=== PATIENT | female | born 1995 | race Caucasian/White ===

== ENCOUNTER → 2018-04-29 17:58 | Outpatient (CLI) | payer OTHER, SELFPAY | PROVIDERS: Visit Provider Nurse Practitioner Family | DX: J02.9 Acute pharyngitis, unspecified (principal) | CPT/HCPCS: 87081 ==

== ENCOUNTER 2020-06-04 10:45 | Outpatient (RCR) | payer OTHER, SELFPAY ==
[2019-05-04 08:16] VITALS: BMI 25.7
== END 2020-06-06 23:59 ==
LOC: EMPH 10:45
PROVIDERS: Visit Provider Family Medicine Geriatric Medicine
DX: Z11.59 Encounter for screening for other viral diseases (principal)
CPT/HCPCS: 87635; U0003

== ENCOUNTER 2020-07-02 10:34 | Outpatient (RCR) | payer OTHER, SELFPAY ==
[2019-05-04 08:16] VITALS: BMI 25.7
== END 2020-07-07 23:59 ==
LOC: EMPH 10:34
PROVIDERS: Visit Provider Family Medicine Geriatric Medicine
DX: Z03.818 Encounter for observation for suspected exposure to other biological agents ruled out (principal)
CPT/HCPCS: 87426

== ENCOUNTER 2020-08-01 13:29 | Outpatient (RCR) | payer OTHER, SELFPAY ==
[2019-05-04 08:16] VITALS: BMI 25.7
== END 2020-08-06 23:59 ==
LOC: EMPH 13:29
PROVIDERS: Visit Provider Family Medicine Geriatric Medicine
DX: Z03.818 Encounter for observation for suspected exposure to other biological agents ruled out (principal)
CPT/HCPCS: 87426

== ENCOUNTER 2020-08-09 10:23 | Outpatient (RCR) | payer OTHER, SELFPAY ==
[2019-05-04 08:16] VITALS: BMI 25.7
== END 2020-09-06 23:59 ==
LOC: EMPH 10:23
PROVIDERS: Visit Provider Family Medicine Geriatric Medicine
DX: Z03.818 Encounter for observation for suspected exposure to other biological agents ruled out (principal)
CPT/HCPCS: 87426

== ENCOUNTER 2021-02-27 11:35 | Outpatient (RCR) | payer OTHER, SELFPAY ==
[2019-05-04 08:16] VITALS: BMI 25.7
== END 2021-03-06 23:59 ==
LOC: EMPH 11:35
PROVIDERS: Visit Provider Family Medicine Geriatric Medicine
DX: Z03.818 Encounter for observation for suspected exposure to other biological agents ruled out (principal)
CPT/HCPCS: 87426

== ENCOUNTER 2021-08-29 08:25 | Outpatient (RCR) | payer OTHER, SELFPAY ==
[2019-05-04 08:16] VITALS: BMI 25.7
== END 2021-09-06 23:59 ==
LOC: EMPH 08:25
PROVIDERS: Visit Provider Family Medicine Geriatric Medicine
DX: Z03.818 Encounter for observation for suspected exposure to other biological agents ruled out (principal)

== ENCOUNTER 2021-10-21 15:37 | Outpatient (RCR) | payer OTHER, SELFPAY ==
[2021-09-07 00:03] VITALS: BMI 25.7
== END 2021-11-04 23:59 | disposition home or self-care (01) ==
LOC: EMPH 15:37
PROVIDERS: Visit Provider Family Medicine Geriatric Medicine
DX: Z03.818 Encounter for observation for suspected exposure to other biological agents ruled out (principal)
CPT/HCPCS: 87426

== ENCOUNTER → 2022-03-04 | Outpatient (CLI) | payer OTHER, SELFPAY ==
--- NOTE | 2022-03-04 16:06 | RAD_ITS ---
EXAM: XR LUMBOSACRAL SPINE, 4 OR 5 VIEWS CLINICAL INDICATION: Back pain TECHNIQUE: Frontal, lateral and bilateral oblique views of the lumbar spine. This report was created using [employer] report generation technology. COMPARISON: None. FINDINGS: VERTEBRAE: Unremarkable. Preserved vertebral body height. No fracture. No spondylolisthesis. Preservation of the normal lumbar lordosis. No significant facet arthropathy. DISC SPACES: No acute findings. Disc spaces are maintained. GASTROINTESTINAL TRACT: Normal bowel gas pattern. RAD/L/S Spine Min 4 Views IMPRESSION: No evidence of lumbar spinal fracture or spondylolisthesis. Electronically Signed: Phill Michele MD at 9:27 EDT ,
== END | disposition home or self-care (01) ==
LOC: RAD 16:00
PROVIDERS: Referring Provider Chiropractor; Visit Provider Chiropractor
DX: M54.9 Dorsalgia, unspecified (principal); M99.03 Segmental and somatic dysfunction of lumbar region; M99.05 Segmental and somatic dysfunction of pelvic region
CPT/HCPCS: 72110

== ENCOUNTER 2022-03-24 04:51 | Emergency (ER) | payer OTHER, SELFPAY ==
[2022-03-24 04:52] VITALS: BP 123/87; PULSE 91; RESP 16; TEMP 37.3; O2SAT 99; BMI 25.8
--- NOTE | 2022-03-24 05:10 | EDS_ITS ---
HPI History of Present Illness Chief Complaint: Abd Pain Narrative Narrative: Patient is a 26-year-old female with no significant past medical or surgical history. She states she went to bed normally last night and awoke around 2:30 in the morning with discomfort in her right upper abdomen. She states it will wax and wane from being sharp to a dull ache. She denies any radiation of the pain. She denies any recent trauma. She states that the pain is making her nauseous but she has had no bouts of vomiting or loose stool/diarrhea. She denies any concern for or STDs and she denies any known sick contact. She states that she cannot get comfortable secondary to the persistent waxing and waning of the pain she presents for evaluation [facility] Medical History (Updated 03/24/22 @ 06:[address] Myron Leon, ) Frequent headaches Home Medications norethindrone acetate 1 mg-ethinyl estradiol 20 mcg tablet (Junel) 1 tab PO QDAY 08/17/17 [History Last Taken Unknown] cephalexin 500 mg capsule 500 mg PO BID 5 days #10 caps 03/24/22 [Rx Last Taken Unknown] ondansetron 4 mg disintegrating tablet 4 mg PO TID PRN PRN nausea and vomiting #21 tabs 03/24/22 [Rx Last Taken Unknown] Allergy/AdvReac Type Severity Reaction Status Date / Time No Known Allergies Allergy Verified 03/05/22 11:25 Social History Smoking Status: Never smoker alcohol intake: current alcohol intake frequency: 0-2 drinks per day Alcohol type: beer and wine substance use type: does not use what type of physical activity do you participate in: walking and running frequency: 1-2 times per week duration: 15-30 minutes/day ROS ROS ED Constitutional Constitutional ED: Denies chills or fever(s) ENT ENT ED: Denies sore throat Cardiovascular Cardiovascular: Denies chest pain Respiratory/Chest Respiratory/Chest: Denies cough or dyspnea Gastrointestinal Gastrointestinal: Reports abdominal pain and nausea; Denies diarrhea or vomiting Genitourinary Genitourinary ED: Denies dysuria or hematuria Musculoskeletal Musculoskeletal: Denies back pain or myalgias Integumentary Denies rash Neurologic Neurologic: Denies headache(s) Hematologic/Lymphatic Hematologic/Lymphatic: Denies easy bleeding or easy bruising EXAM Physical Exam Const Vital Signs: 03/24/22 04:52 03/24/22 06:34 Temperature 99.1 F Temperature Source Temporal Pulse Rate 91 83 Respiratory Rate 16 15 Blood Pressure 123/87 H 114/79 Blood Pressure Mean 99 90 Pulse Ox 99 99 Oxygen Delivery Method Room Air Room Air Positive well nourished and well developed General Appearance ED: well developed HEENT Reports moist mucous membranes Eyes PERRL and EOMs intact bilaterally Neck supple Resp normal respiratory effort and clear to auscultation bilaterally Cardio regular rate and regular rhythm Rate: other Other Details: Radial pulses are plus 2 out of 4 bilaterally they are equal and symmetric GI non-distended GI Narrative: Abdomen is soft and nondistended with hyperactive bowel sounds. There is pain with palpation in the right upper quadrant without voluntary guarding or rigidity. Negative Johns sign. Negative heel strike and psoas sign. Palpation: soft Back/Spine no CVA tenderness Extremity normal to inspection Neuro oriented x3 and CN's II-XII intact bilaterally Sensorium / Orientation: alert Psych mental status grossly normal Skin no rashes or lesions noted MDM MDM MDM Narrative Medical decision making narrative: Patient presented to the ER with normal vitals. Her pain was mainly in the right upper quadrant but there is no guarding or positive Johns sign. Still there was concern this could be secondary to gallbladder dysfunction so basic work-up was obtained. Her labs revealed no clinically significant finding. Her urine does show +2 bacteria without white blood cells or contamination. The patient denies any urinary symptoms and denies any vaginal discharge or concern for STD. In theory her abdominal pain could be secondary to a start of pyelonephritis and therefore the urine will be sent for culture and she will be given a gram of Rocephin. On reevaluation her pain is much better but it is still slightly present and therefore we will get an ultrasound to ensure that there is no signs of acute cholecystitis or gallbladder dysfunction. However based on her vitals and laboratory studies at this time I do not think infectious process will be present and as she has had symptom improvement I feel it would be safe for the patient to be discharged and can follow-up on an outpatient basis. With the +2 bacteria in the urine I will put her on a round of Keflex as well. Lab Data Attestation: I reviewed the patient's lab results. Labs: Laboratory Results - last 24 hr 03/24/22 03/24/22 03/24/22 04:58 04:58 05:28 WBC 7.8 RBC 4.42 Hgb 13.3 Hct 38.9 MCV 88.0 MCH 30.1 MCHC 34.2 RDW Std Deviation 40.8 RDW Coeff of Pedro Luis 12.5 Plt Count 263 MPV 10.6 Immature Gran % (Auto) 0.300 Neut % (Auto) 59.9 Lymph % (Auto) 27.3 [place] % (Auto) 8.5 Eos % (Auto) 3.2 Baso % (Auto) 0.8 Absolute Neuts (auto) 4.7 Absolute Lymphs (auto) 2.12 Nucleated RBC % 0 Sodium 138 Potassium 3.8 Chloride 105 Carbon Dioxide 27.0 Anion Gap 6 BUN 12 Creatinine 0.68 Estim Creat Clear Calc 111.82 Est GFR (MDRD) Af Amer 133 Est GFR (MDRD) Non-Af 110 BUN/Creatinine Ratio 17.6 Glucose 108 H Calcium 9.2 Total Bilirubin 0.60 Direct Bilirubin 0.15 AST 14 L ALT 23 Alkaline Phosphatase 63 Total Protein 7.3 Albumin 3.6 Globulin 3.7 Lipase 128 Urine Color Yellow Urine Clarity Clear Urine pH 6.0 Ur Specific [place] 1.015 Urine Protein Negative Urine Glucose (UA) Normal Urine Ketones Negative Urine Occult Blood Negative Urine Nitrite Negative Urine Bilirubin Negative Urine Urobilinogen Normal Ur Leukocyte Esterase Negative Urine RBC 0 SEEN Urine WBC 0 SEEN Ur Squamous Epith Cells 0 SEEN Urine Bacteria 2+ Urine Mucus 0 SEEN Urine Test Negative Discharge Plan Triage Chief Complaint: Abd Pain ED Provider: Myron Leon Dx/Rx/DC Orders Clinical Impression: Right upper quadrant abdominal pain, Asymptomatic bacteriuria Instructions: Abdominal Pain Prescriptions: New cephalexin 500 mg capsule 500 mg PO BID 5 Days Qty: 10 0RF ondansetron 4 mg tablet,disintegrating 4 mg PO TID PRN PRN (Reason: nausea and vomiting) Qty: 21 0RF No Action norethindrone ac-eth estradiol [09/26 ()] 1-20 mg-mcg tablet 1 tab PO QDAY Primary Care Provider: Orly Velarde Referrals: Orly Velarde, [Primary Care Provider] - Activity Restrictions/Additional Instructions: Please take the medication as directed secondary to the bacteria found in your urine sample today. If you are having any further concerns or worsening symptoms despite outpatient therapy please return to the ER for repeat evaluation. Disposition Disposition: Home, Self Care
[2022-03-24 05:22] LABS: Absolute Lymphocyte Count 2.12 X10^3/uL (0.83-4.51); Absolute Neutrophil Count 4.7 X10^3/uL (2.0-7.7); Basophil# 0.06 X10^3/uL; Basophil% 0.8 % (0-1); Eosinophil# 0.25 X10^3/uL; Eosinophils% 3.2 % (0-5); Hematocrit 38.9 % (37-47); Hemoglobin 13.3 g/dL (12.0-15.0); Lymphocyte # 2.12 X10^3/ul (0.83-4.51); Lymphocyte % 27.3 % (19-41); Mean Corp Hgb Conc 34.2 g/dL (32-36); Mean Corpuscular Hgb 30.1 pg (27.0-32.0); Mean Platelet Vol. 10.6 fl (6.2-12.0); Monocyte# 0.66 X10^3/uL; Monocyte% 8.5 % (0-10); NRBC Flagged by Analyzer 0 % (0-5); Neutrophil # 4.66 X10^3/uL (2.7-7.7); Neutrophil % 59.9 % (47-70); Platelet Count 263 K/mm3 (150-450); RBC Distribution Width CV 12.5 % (11.6-14.6); RBC Distribution Width SD 40.8 fl (35.1-43.9); Red Blood Count 4.42 M/mm3 (4.2-5.4); White Blood Count 7.8 K/mm3 (4.4-11.0)
[2022-03-24] MEDS: 0.9% Normal Saline 1,000 ML 999 ML IV (05:37)
[2022-03-24] MEDS: Ketorolac 30 MG/ML Syringe IV (05:37)
[2022-03-24] MEDS: Ondansetron 4 MG/2 ML Vial IV (05:37)
[2022-03-24 05:40] LABS: Mucous, Urine 0 SEEN /hpf (<or=2+); Red Blood Cells-Urine 0 SEEN /hpf (0-5); Squamous Epithelial Cells - UA 0 SEEN /hpf (5-10); White Blood Cells 0 SEEN /hpf (0-5)
[2022-03-24 05:43] LABS: AST(SGOT) 14 U/L (15-37); Alanine Aminotransfer ALT/SGPT 23 U/L (13-56); Albumin, Serum 3.6 g/dL (3.2-5.0); Alkaline Phosphatase 63 U/L (45-117); Anion Gap 6 (5-15); BUN 12 mg/dL (7-18); BUN/Creat Ratio 17.6 RATIO (10-20); Bilirubin, Direct 0.15 mg/dL (0.00-0.30); Calcium,Total 9.2 mg/dL (8.5-10.1); Chloride 105 mmol/L (98-107); Creatinine, Serum 0.68 mg/dL (0.55-1.02); EST Glomerular Filtration Rate 110 mL/min (>60); Est Glom Filt Rate - Afr Amer 133 mL/min (>60); Estimated Creatinine Clearance 111.82 ml/min; Globulin 3.7 g/dL (2.2-4.2); Glucose 108 mg/dL (74-106); Lipase 128 U/L (73-393); Potassium 3.8 mmol/L (3.5-5.1); Protein, Total 7.3 g/dL (6.4-8.2); Sodium Level 138 mmol/L (136-145)
[2022-03-24 05:57] LABS: Color, Urine Yellow (Yellow); Glucose, Dipstick Normal (Normal); Ketone-Dipstick Negative (Negative); Leukocyte Esterase-Dipstick Negative /ul (Negative); Nitrite-Dipstick Negative (Negative); Occult Blood-Urine Negative /ul (Negative); Protein-Dipstick Negative (Negative); Specific Gravity, Urine 1.015 (1.002-1.030); Urine Bilirubin Dipstick Negative (Negative); Urine Clarity Clear (Clear); Urine Urobilinogen Normal (Normal)
[2022-03-24 05:58] LABS: Bacteria 2+ /hpf (None Seen); Internal QC Validated? YES +Cl - CLEAR BKGD; Pregnancy, Urine Negative Negative
--- NOTE | 2022-03-24 06:18 | US_ITS ---
EXAM: US ABDOMEN LIMITED, RIGHT UPPER QUADRANT CLINICAL INDICATION: RUQ pain TECHNIQUE: Real-time ultrasound of the right upper quadrant with image documentation. This report was created using [employer] report generation technology. COMPARISON: None. FINDINGS: LIVER: Unremarkable. There is normal echotexture. No focal hepatic lesion. No intrahepatic biliary ductal dilation. GALLBLADDER: Multiple small stones are present within the gallbladder. No gallbladder wall thickening is demonstrated. Small amount of pericholecystic fluid. Negative sonographic Johns''s sign. COMMON BILE DUCT: Unremarkable as visualized. The proximal common bile duct is within normal limits for the patient''s age. PANCREAS: Unremarkable as visualized. No focal abnormality is demonstrated in the pancreas. No pancreatic ductal dilatation. RIGHT KIDNEY: Unremarkable. There is no hydronephrosis. No shadowing calculus. No focal lesion or perinephric collection is demonstrated. US/Gallbladder IMPRESSION: Cholelithiasis. Minimal pericholecystic fluid raises the possibility of acute cholecystitis. Electronically Signed: Phill Michele MD at 7:47 EDT ,
[2022-03-24] MEDS: Ceftriaxone 1 GM/50 ML BAG IV (06:27)
[2022-03-24 06:34] VITALS: BP 114/79; PULSE 83; RESP 15; O2SAT 99
[2022-03-24 08:33] VITALS: RESP 16
== END 2022-03-24 08:34 | disposition home or self-care (01) ==
PROVIDERS: Emergency Medicine; Emergency Provider Emergency Medicine; Visit Provider Emergency Medicine
DX: R10.11 Right upper quadrant pain (principal); R82.71 Bacteriuria
CPT/HCPCS: 76705; 80048; 80076; 81001; 81025; 83690; 85025; 87086; 87088; 99282; J7030; A4216; J2405

== ENCOUNTER 2022-04-02 12:29 | Day surgery (SDC) | payer OTHER, SELFPAY ==
--- NOTE | 2022-04-02 12:40 | EKG12_ITS ---
Test Reason : PRE OP Blood Pressure : / mmHG Vent. Rate : 071 BPM Atrial Rate : 071 BPM P-R Int : 108 ms QRS Dur : 084 ms QT Int : 380 ms P-R-T Axes : 041 064 042 degrees QTc Int : 412 ms Sinus rhythm with short TN Otherwise normal ECG No previous ECGs available Confirmed by MADALYN HIGUERA, DESTINI ([id number]), assignment desk editor RITA HUDDLESTON ([id number]) on 04/08/2022 10:21:44 AM Referred By: Orly Velarde Confirmed By:DESTINI BERGMAN MD
[2022-04-02 12:50] VITALS: BP 113/73; PULSE 88; RESP 18; TEMP 36.5; O2SAT 100; BMI 24.2
[2022-04-02 13:05] LABS: Internal QC Validated? YES +Cl - CLEAR BKGD; Pregnancy, Urine Negative Negative
[2022-04-02] MEDS: Lactated Ringers 1,000 ML 15 ML IV (13:10)
[2022-04-02] MEDS: Cefotetan 2 GM in 0.9% NS 100 ML IV (14:00)
--- NOTE | 2022-04-02 14:00 | GALL_PTH ---
PATIENT: SARITHA GALLOWAY [place] [facility] [place][id number] AGE/SX: 27/ ROOM: RE04/02/[address]: Dr. Dillon Gonzales MD : 1995 BED: DIS: 04/02/2022 SPEC #: [id number] RECD: 04/02/22 15:54 STATUS: STEPHANIA PHILLIPS #: [id number] [place]: 04/02/22 14:[address]: Dillon Gonzales DEPT: SURGICAL PATHOLOGY RECD BY: Luis Fernando Alford ENTERED: 04/03/22 07:21 SP TYPE: SHARA BANEGAS DR: Dr. Orly Velarde DO Tissues: Gallbladder, NOS Procedures: Surgery Specimen Level III HEADER OPERATION: Laparoscopic cholecystectomy PRE-OP DIAGNOSIS: Right upper quadrant abdominal pain, cholelithiasis TISSUE SUBMITTED: Gallbladder MICROSCOPIC DIAGNOSIS Gallbladder, cholecystectomy: Mild chronic cholecystitis, cholelithiasis and focal cholesterolosis. A benign pericystic lymph node. KENJI:mikie 04/04/2022 MICROSCOPIC DESCRIPTION Slides are reviewed. GROSS DESCRIPTION Received is one container labeled with the patient's name and designated gallbladder. The specimen consists of a gallbladder measuring 9 cm in length and up to 3.5 cm in diameter. The external surface is pink-augustin, smooth and glistening for the most part. Focally it is granular, hemorrhagic and contains cautery artifact. The gallbladder contains green-yellow mucoid bile and multiple yellowish mulberry stones measuring in aggregate 1 x 1 x 0.1 cm and 0.1 to 0.2 cm in greatest dimension. The mucosa is bile-stained and without any mass lesions. The gallbladder wall measures up to 0.1 cm in thickness. Also present close to cystic duct is an ovoid nodule, a possible lymph node, measuring 0.5 cm in greatest dimension. Campground Attendant sections from the gallbladder and the cystic duct are submitted in one cassette including the entire nodule. / KENJI:mikie 04/03/2022 TC:3 CPT: 17481
--- NOTE | 2022-04-02 14:04 | HP.PCM_ITS ---
History and Physical Date of Admission: 04/02/22 Intake Vital Signs ? 03/24/2204:52 03/28/2208:05 Height 5 ft 5 in 5 ft 5 in Weight: 155 lb 6.814 oz 150 lb BMI 25.8 25.0 BP 123/87 H 116/80 Blood Pressure Location ? Rt brachial Position ? Sitting Respiration 16 16 Pulse 91 ? Temp 99.1 F ? Temp Source Temporal ? Pulse Oximetry (%) 99 ? Intake Visit Reasons:?GALLSTONES Chief Complaint: gallstones Information Security Manager Required: No Is patient in pain?: No Allergies No Known Allergies Allergy (Verified 03/28/22 08:06) Medications norethindrone acetate 1 mg-ethinyl estradiol 20 mcg tablet (Junel) 1 tab PO QDAY 08/17/17 [History Confirmed 03/28/22] ondansetron 4 mg disintegrating tablet 4 mg PO TID PRN PRN nausea and vomiting #21 tabs 03/24/22 [Rx Confirmed 03/28/22] PFSH Medical History?(Updated 03/28/22 @ 08:[address] Dillon Gonzales MD) Frequent headaches Family History? Mother Diabetes HypertensionGrandmother Heart disease Social History? Smoking Status:? Never smoker alcohol intake:? current alcohol intake frequency: 0-2 drinks per day Alcohol type: beer and wine substance use type:? does not use what type of physical activity do you participate in:? walking and running frequency:? 1-2 times per week duration:? 15-30 minutes/day HPI HPI HPI: SARITHA CHANEY, is a 26 F who presents to the office today for right upper quadrant pain.? The patient reports this is been going on for couple months.? She said she was in the emergency room about 4 days ago with severe right upper quadrant pain causing nausea and vomiting.? She did try Nexium and Protonix with no improvement.? She says the pain is in the right upper quadrant does not radiate.? She reports it is sharp. ROS General General: No weight change, appetite, fatigue, colon cancer, breast cancer or weakness HEENT HEENT: No difficulty swallowing, eye injury, eye surgery, swollen glands or hoarseness Endo Endocrine: No thyroid disease, diabetes mellitus, thyroid cancer, Hair loss, heat intolerance or cold intolerance Skin Skin: No rash or changing moles Breast Breast: No left breast lump, right breast lump, nipple discharge, breast pain, abnormal mammogram, abnormal US or breast enlargement Musc Musculoskeletal: No back problems, arthritis, rheumatoid arthritis, gout or joint pain Cardio Cardiovascular: No murmur, pacemaker, heart disease, atrial fibrillation, high blood pressure, heart attack, heart stent, palpitations, shortness of breat with exertion or chest pain Psych Psychiatric: No depression, anxiety or hearing voices Resp Respiratory: No shortness of breath, No sleep apnea, No cough, No COPD, No asthma, No emphysema and No wheezing Gastro Gastrointestinal: No abdominal pain, Yes nausea or vomiting, No diarrhea, No constipation, No blood in stool, Yes acid reflux, No hemorrhoids, No ulcers, No gallbladder problem and No black,tarry stools James Hematologic: No blood thinners, No blood disorders, No bleeding, No anemia and No blood clots Neuro Neurologic: No system reviewed and no additional complaints, except as documented, No as per HPI, No abnormal gait, No abnormal hearing, No abnormal movements, No abnormal speech, No behavioral changes, No burning sensations, No confusion, No convulsions, No disequilibrium, No dizziness, No localized weakness, No frequent falls, No headache(s), No lack of coordination, No loss of vision, No memory loss, No numbness, No other visual disturbances, No radicular pain, No restless legs, No sensory deficit, No syncope, No tingling, No tremor(s), No weakness and No other Exam Const General: cooperative Orientation: alert and oriented x3 HENMT Head: normal to inspection Neck Neck: normal visual inspection and full ROM Chest Chest palpation & inspection: normal inspection of the chest Resp Effort & Inspection: normal respiratory effort Auscultation: clear to auscultation bilaterally Cardio Rate: regular rate Rhythm: regular rhythm GI Inspection: non-distended Palpation: soft and nontender Skin General: no rashes or lesions noted Neuro General: patient alert and patient oriented x3 Extrem General: full ROM Psych Appearance: grossly normal Mental Status: mental status grossly normal Assessment and Plan Assessment and Plan (1) Right upper quadrant abdominal pain: ?Status:?Acute (2) Cholelithiases: ?Status:?Acute Plan The patient has right upper quadrant pain and she did have nausea and vomiting.? She is currently not tender.? Her ultrasound showed cholelithiasis with possible pericholecystic fluid.? I did recommend laparoscopic cholecystectomy to her. I discussed the procedure in detail with the patient.? I discussed the risks, benefits, and alternatives of the procedure.? I discussed the risks including but not limited to bleeding, infection, injury to surrounding organs such as the liver, bile duct, bowels.? I did discuss the possibility of having to convert to an open procedure as well as the possibility that if any injuries occurred this may necessitate further surgery at a tertiary care center. Dillon Gonzales MD Pager: [facility] [address] [place] [address], [address] [place] [address] Office: I have seen the patient and there are no changes
[2022-04-02] MEDS: Bupivacaine 0.25% 30 ML Vial (14:53)
--- NOTE | 2022-04-02 15:00 | OP.PCM_ITS ---
Report of Operation Date of Procedure: 04/02/22 Pre-Operative Diagnosis: Cholelithiasis and biliary colic Post-Operative Diagnosis: Same Surgery/Procedure Performed:: Laparoscopic cholecystectomy Specimen's removed: Gallbladder Description of Procedure: After obtaining informed consent patient was brought back to the operating room. General anesthesia was induced. The abdomen was prepped and draped in usual sterile fashion. A small midline incision was made superior to the umbilicus and deepened to the level of fascia. The fascia was elevated and incised. Next the peritoneum was elevated and incised in the same fashion. Finger sweep was performed and the Alamo trocar was placed into the abdomen. The balloon was inflated. The abdomen was inflated to 15 mmHg. Next a camera was introduced into the abdomen and the abdomen was inspected. Next under direct visualization three 5-mm ports were placed one subxiphoid and 2 subcostal. Next the gallbladder was elevated and retracted toward the right shoulder. The peritoneum was stripped from the gallbladder. The infundibulum was located and retracted laterally. Next the triangle of Calot was dissected and the cystic duct and cystic artery were identified. Cholangiograms were attempted. Rose clamp was clamped across the infundibulum and the needle was placed into the gallbladder. I was unable to instill contrast as there is likely a stone in the cystic duct. The anatomy was clear and the cystic duct was obvious so I did not persist with cholangiogram. Three hemolock clips were placed across the cystic duct. The cystic duct was then divided leaving 2 clips on the stump. The cystic artery was clipped and divided in the same fashion. The hook cautery was then used to take the gallbladder off of the gallbladder bed. Hemostasis was obtained. Gallbladder fossa was irrigated and no active bleeding or bile leakage was noted. Next the camera was introduced in the subxiphoid port. An Endopouch bag was placed through the umbilical port and the gallbladder was placed into it. The gallbladder was then removed through the umbilical incision. The camera was then reinserted through the umbilical port. The gallbladder fossa was inspected once more and noted to be hemostatic with no leaking bile. The abdomen was suctioned dry. The 5 mm ports were removed under direct visualization. The umbilical port was then removed and the air was removed from the abdomen. Next using an 0 Vicryl suture the umbilical fascia was closed in a [id number] fashion. The umbilical port site was irrigated local anesthetic was administered to all the incisions. All the incisions were closed with interrupted subcuticular 4-0 Monocryl sutures followed by Steri- Strips and dressings. The patient was awoken and taken to PACU in stable con dition. Admit VTE Documentation VTE Mechan Device Prophylaxis: SCD's
--- NOTE | 2022-04-02 15:01 | DCINST_ITS ---
Discharge Instructions Procedure Gallbladder Diet Discharge Diet: Light diet - advance as tolerated Activity Discharge Activity: May Not Drive (for 2-3 days or while taking narcotic pain medications.) and - (Do not drive, work heavy equipment or sign legal documents for 24 hours.) May shower in (days): 1 Lifting Restrictions: 20 lbs for 2 weeks Additional Activity Instructions:: Pain medication may cause nausea. You should typically eat light foods as you take your pain medications. Pain medication may also cause constipation. If this is a problem for you, please discuss with your doctor. Dressing / Incision Call your doctor if your incision/area has: Continuous Slow Oozing, Sudden Increased Bleeding, Increased Pain/ Swelling, Increased Redness and Foul Smelling Discharge Call your doctor if you observe: Fever of 101 or Higher Suture Line Care: Avoid Pulling/Pushing and Avoid Pinching/Bending Remove Dressing in: 2 days Additional Dressing/Incision Instructions:: Leave operative bandaids on for 2 days. When you remove dressing, leave Steri-Strips on until your follow-up appointment, or until the Steri-Strips fall off on their own. Follow Up Care Please Follow Up With: Dillon Gonzales MD When: Please call to schedule 2 week follow up appointment. [phone] Test Results: Test results from this visit will be discussed in further detail at your follow- up appointment, if applicable. Discharge Plan Admission Attending Provider: Dillon Gonzales Primary Care Provider: Orly Velarde Discharge Orders/Prescriptions Prescriptions: New oxycodone-acetaminophen [Percocet] 5-325 mg tablet 1 tab PO Q4H PRN (Reason: pain) 5 Days Qty: 20 0RF No Action norethindrone ac-eth estradiol [09/26 (21)] 1-20 mg-mcg tablet 1 tab PO QDAY Referrals / Follow Up: Orly Velarde, [Primary Care Provider] - Disposition Disposition (needs filled in before D/C Order can be placed): Home, Self Care
[2022-04-02 15:15] VITALS: BP 113/73; BP 124/83; PULSE 98; RESP 18; TEMP 36.3; O2SAT 98
[2022-04-02 15:30] VITALS: BP 113/73; BP 127/89; PULSE 90; RESP 18; O2SAT 100
[2022-04-02 15:45] VITALS: BP 113/73; BP 121/83; PULSE 78; RESP 18; O2SAT 100
[2022-04-02 16:03] VITALS: BP 113/73; BP 125/87; PULSE 78; RESP 18; TEMP 36.5; O2SAT 99
[2022-04-02] MEDS: oxyCODONE 5 MG Tablet 10 MG PO (16:44)
[2022-04-02] MEDS: Acetaminophen 325 MG Tablet 650 MG PO (16:44)
[2022-04-02 17:17] VITALS: BP 113/73; BP 113/82; PULSE 85; RESP 16; TEMP 37.1; O2SAT 100
== END 2022-04-02 17:25 | disposition home or self-care (01) ==
LOC: SDC 12:30 → AC 12:32
PROVIDERS: Anesthesiology; Visit Provider Surgery
PROC: (CPT 47610; principal; 2022-04-02 13:40)
DX: K80.10 Calculus of gallbladder with chronic cholecystitis without obstruction (principal)
CPT/HCPCS: 47562; 00790; 81025; 88304; 93005; J7120; J2405

== ENCOUNTER → 2022-11-17 | Outpatient (CLI) | payer OTHER, SELFPAY ==
[2022-11-17 10:17] LABS: hCG Titer Quant., Serum 13 mIU/mL (1-3)
== END | disposition home or self-care (01) ==
LOC: PAVLAB 09:13
PROVIDERS: Referring Provider Obstetrics & Gynecology; Visit Provider Obstetrics & Gynecology
DX: N92.0 Excessive and frequent menstruation with regular cycle (principal)
CPT/HCPCS: 36415; 84702; 86850; 86900; 86901

== ENCOUNTER → 2022-11-19 | Outpatient (CLI) | payer OTHER, SELFPAY ==
[2022-11-19 11:26] LABS: hCG Titer Quant., Serum 2 mIU/mL (1-3)
== END | disposition home or self-care (01) ==
LOC: PAVLAB 10:31
PROVIDERS: Referring Provider Obstetrics & Gynecology; Visit Provider Obstetrics & Gynecology
DX: N92.0 Excessive and frequent menstruation with regular cycle (principal)
CPT/HCPCS: 36415; 84702

== ENCOUNTER → 2023-01-20 | Outpatient (CLI) | payer BC, SELFPAY ==
[2023-01-20 08:44] LABS: hCG Titer Quant., Serum 977 mIU/mL (1-3)
== END | disposition home or self-care (01) ==
PROVIDERS: Referring Provider Registered Nurse; Visit Provider Registered Nurse
DX: N91.2 Amenorrhea, unspecified (principal)
CPT/HCPCS: 36415; 84702

== ENCOUNTER → 2023-01-22 | Outpatient (CLI) | payer BC, SELFPAY ==
[2023-01-22 13:29] LABS: hCG Titer Quant., Serum 2033 mIU/mL (1-3)
== END | disposition home or self-care (01) ==
LOC: PAVLAB 11:52
PROVIDERS: Referring Provider Registered Nurse; Visit Provider Registered Nurse
DX: N91.2 Amenorrhea, unspecified (principal)
CPT/HCPCS: 36415; 84702

== ENCOUNTER → 2023-02-19 | Outpatient (CLI) | payer BC, SELFPAY ==
[2023-02-23 06:07] LABS: Chlamydia By Nucleic Acid AMP Negative (Negative); Gonococcus By Nucleic Acid AMP Negative (Negative)
[2023-02-24 17:57] LABS: HPV Reflexed? NOT INDICATED
== END | disposition home or self-care (01) ==
PROVIDERS: Visit Provider Obstetrics & Gynecology
DX: Z34.90 Encounter for supervision of normal pregnancy, unspecified, unspecified trimester (principal)
CPT/HCPCS: 87086; 87491; 87591; 88175; G0145

== ENCOUNTER → 2023-03-12 | Outpatient (CLI) | payer BC, SELFPAY ==
[2023-03-12 09:01] LABS: Absolute Neutrophil Count 8.3 X10^3/uL (2.0-7.7); Basophil# 0.06 X10^3/uL; Basophil% 0.5 % (0-1); Eosinophil# 0.12 X10^3/uL; Eosinophils% 1.1 % (0-5); Hematocrit 38.4 % (37-47); Hemoglobin 12.9 g/dL (12.0-15.0); Lymphocyte % 16.2 % (19-41); Mean Corp Hgb Conc 33.6 g/dL (32-36); Mean Corpuscular Hgb 29.8 pg (27.0-32.0); Mean Corpuscular Volume 88.7 fL (81-99); Mean Platelet Vol. 10.8 fl (6.2-12.0); Monocyte# 0.81 X10^3/uL; Monocyte% 7.3 % (0-10); NRBC Flagged by Analyzer 0 % (0-5); Neutrophil # 8.26 X10^3/uL (2.7-7.7); Neutrophil % 74.4 % (47-70); Platelet Count 262 K/mm3 (150-450); RBC Distribution Width CV 12.2 % (11.6-14.6); RBC Distribution Width SD 39.8 fl (35.1-43.9); Red Blood Count 4.33 M/mm3 (4.2-5.4); White Blood Count 11.1 K/mm3 (4.4-11.0)
[2023-03-12 10:12] LABS: HIV - WCH Non-Reactive (Nonreactive); Hepatitis B Surface Antigen Non-Reactive (Nonreactive); Hepatitis C Antibody Non-Reactive (Nonreactive); Rubella IgG Reactive (Nonreactive); Syphilis Antibodies Non-reactive
== END | disposition home or self-care (01) ==
PROVIDERS: Referring Provider Obstetrics & Gynecology; Visit Provider Obstetrics & Gynecology
DX: Z34.90 Encounter for supervision of normal pregnancy, unspecified, unspecified trimester (principal); Z3A.00 Weeks of gestation of pregnancy not specified
CPT/HCPCS: 36415; 85025; 86703; 86762; 86780; 86803; 86850; 86900; 86901; 87340

== ENCOUNTER → 2023-05-13 | Outpatient (CLI) | payer BC, SELFPAY ==
[2023-05-13 16:05] LABS: NATERA MAILED SPECIMEN
== END | disposition home or self-care (01) ==
LOC: PAVLAB 14:14
PROVIDERS: Referring Provider Nurse Practitioner Women's Health; Visit Provider Nurse Practitioner Women's Health
DX: Z34.82 Encounter for supervision of other normal pregnancy, second trimester (principal)

== ENCOUNTER → 2023-06-10 | Outpatient (CLI) | payer BC, SELFPAY | END | disposition home or self-care (01) | LOC: LABSPEC 15:01 | PROVIDERS: Referring Provider Registered Nurse; Visit Provider Registered Nurse | DX: R00-R99 Symptoms, signs and abnormal clinical and laboratory findings, not elsewhere classified (principal) | CPT/HCPCS: 87086 ==

== ENCOUNTER → 2023-07-04 | Outpatient (CLI) | payer BC, SELFPAY ==
[2023-07-04 11:26] LABS: Absolute Lymphocyte Count 1.46 X10^3/uL (0.83-4.51); Absolute Neutrophil Count 11.7 X10^3/uL (2.0-7.7); Basophil# 0.05 X10^3/uL; Basophil% 0.4 % (0-1); Eosinophil# 0.11 X10^3/uL; Eosinophils% 0.8 % (0-5); Hematocrit 34.6 % (37-47); Hemoglobin 11.5 g/dL (12.0-15.0); Lymphocyte # 1.46 X10^3/ul (0.83-4.51); Lymphocyte % 10.4 % (19-41); Mean Corp Hgb Conc 33.2 g/dL (32-36); Mean Corpuscular Hgb 30.4 pg (27.0-32.0); Mean Corpuscular Volume 91.5 fL (81-99); Monocyte# 0.67 X10^3/uL; Monocyte% 4.8 % (0-10); NRBC Flagged by Analyzer 0 % (0-5); Neutrophil # 11.69 X10^3/uL (2.7-7.7); Platelet Count 207 K/mm3 (150-450); RBC Distribution Width CV 12.6 % (11.6-14.6); RBC Distribution Width SD 41.9 fl (35.1-43.9); Red Blood Count 3.78 M/mm3 (4.2-5.4); White Blood Count 14.1 K/mm3 (4.4-11.0)
[2023-07-04 11:40] LABS: Glucose Challenge Gest 1H 50g 161 mg/dL (70-140)
[2023-07-06 10:56] LABS: HIV - WCH Non-Reactive (Nonreactive); Syphilis Antibodies Non-reactive
== END | disposition home or self-care (01) ==
PROVIDERS: Referring Provider Registered Nurse; Visit Provider Registered Nurse
DX: Z34.90 Encounter for supervision of normal pregnancy, unspecified, unspecified trimester (principal); Z3A.00 Weeks of gestation of pregnancy not specified
CPT/HCPCS: 36415; 82950; 85025; 86703; 86780

== ENCOUNTER → 2023-07-20 | Outpatient (CLI) | payer BC, SELFPAY ==
[2023-07-20 10:48] LABS: Glucose GTT-Gestation. Fasting 90 mg/dL (<105)
[2023-07-20 11:29] LABS: Glucose GTT-Gestational 1 Hr 165 mg/dL (<190)
[2023-07-20 13:05] LABS: Glucose GTT-Gestational 2 Hr 149 mg/dL (<165)
[2023-07-20 13:41] LABS: Glucose GTT-Gestational 3 Hr 152 L (<145)
== END | disposition home or self-care (01) ==
LOC: LAB 09:52
PROVIDERS: Referring Provider Registered Nurse; Visit Provider Registered Nurse
DX: Z13.1 Encounter for screening for diabetes mellitus (principal)
CPT/HCPCS: 36415; 82951; 82952

== ENCOUNTER → 2023-09-02 | Outpatient (CLI) | payer BC, SELFPAY | END | disposition home or self-care (01) | LOC: LABSPEC 10:31 | PROVIDERS: Referring Provider Registered Nurse; Visit Provider Registered Nurse | DX: Z34.90 Encounter for supervision of normal pregnancy, unspecified, unspecified trimester (principal); Z3A.00 Weeks of gestation of pregnancy not specified | CPT/HCPCS: 87081 ==

== ENCOUNTER 2023-09-24 11:30 | Inpatient (IN) | payer BC, SELFPAY ==
[2023-09-24] VITALS (60 sets, daily range): BP systolic 110–142; BP diastolic 59–93; PULSE 64–115; TEMP 36.3–37.1; O2SAT 93–100; BMI 31.4
--- OUTSIDE RECORDS SUMMARY | 2023-09-24 10:22 | XMS RPT_ITS | CCD ---
Author Name Unknown Address [facility] [address] [place] [address] Organization [facility] Care Team Providers Care Heat Transfer Technician Name Role Phone EMPLOYEE, HEALTH Unavailable Unavailable EMPLOYEE, HEALTH Unavailable Unavailable EMPLOYEE, HEALTH Unavailable Unavailable EMPLOYEE, HEALTH Unavailable Unavailable EMPLOYEE, HEALTH Unavailable Unavailable EMPLOYEE, HEALTH Unavailable Unavailable NO PRIMARY CAREMD Primary Care Unavailable WESTLEY WILCOX Referring Unavailable JACIEL REAL Attending Unavailable JOLYNN SIMPSON Attending Unavailable NO PRIMARY CAREMD Primary Care Unavailable JOLYNN SIMPSON Referring Unavailable Results Test Name Value Interpretation Reference Range Facil ity Encounters Encounter Date Encounter Type Care Provider Facility Start: 05-15-2023 End: 05-15-2023 ambulatory JOLYNN SIMPSON [facility] Start: 04-27-2023 End: 04-27-2023 ambulatory MD [facility] Start: 06-03-2018 Patient encounter HEALTH EMPLOYEE [facility] Start: 10-08-2017 End: 10-08-2017 Patient encounter [facility]JanetEMPLOYEE [facility] Payers Date Payer Category Payer Unknown [id number] 1995 Unknown [id number] Unknown [id number] Summary Purpose Family History No Family History Records FoundNo Family History Records FoundNo Family History Records Found Advance Directives No Advanced Directives Records FoundNo Advanced Directives Records FoundNo Advanced Directives Records Found Additional Source Comments INFORMATION SOURCE (unrecogn ized section and content) DATE CREATED AUTHOR AUTHOR'S ORGANIZ ATION 05/02/2020 [facility] DATE CREATED AUTHOR AUTHOR'S IONA ATION 05/16/2023 [facility] FOR RECORDS PERTAINING TO PATIENTS WHO ARE OR HAVE BEEN ENROLLED IN A CHEMICAL DEPENDENCY/SUBSTANCEABUSE PROGRAM, SOME INFORMATION MAY BE OMITTED. This clinical summary was aggregated from multiple sources. Caution should be exercised in using it in the provision of clinical care. This summary normalizes information from multiple sources, and as a consequence, information in this document may materially change the coding, format and clinical context of patient data. In addition, data may be omitted in some cases. CLINICAL DECISIONS SHOULD BE BASED ON THE PRIMARY CLINICAL RECORDS. [facility]. provides no warranty or guarantee of the accuracy or completeness of information in this document.
[2023-09-24] MEDS: Lactated Ringers 1,000 ML 50 ML IV (12:00)
--- OUTSIDE RECORDS SUMMARY | 2023-09-24 12:05 | XMS RPT_ITS | CCD ---
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 1994 Unknown [id number] Unknown [id number] Summary Purpose Family History No Family History Records FoundNo Family History Records FoundNo Family History Records Found Advance Directives No Advanced Directives Records FoundNo Advanced Directives Records FoundNo Advanced Directives Records Found Additional Source Comments INFORMATION SOURCE (unrecogn ized section and content) DATE CREATED AUTHOR AUTHOR'S ORGANIZ ATION 05/02/2020 [facility] ([place]) DATE CREATED AUTHOR AUTHOR'S IONA ATION 05/16/2023 [facility] FOR RECORDS PERTAINING TO PATIENTS WHO [...] BE BASED ON THE PRIMARY CLINICAL RECORDS. [facility] [employer] [facility]. provides no warranty or guarantee of the accuracy or completeness of information in this document.
[2023-09-24 12:17] LABS: Absolute Neutrophil Count 12.7 X10^3/uL (2.0-7.7); Basophil# 0.05 X10^3/uL; Basophil% 0.3 % (0-1); Eosinophil# 0.03 X10^3/uL; Eosinophils% 0.2 % (0-5); Hematocrit 34.7 % (37-47); Hemoglobin 11.4 g/dL (12.0-15.0); Lymphocyte % 10.3 % (19-41); Mean Corp Hgb Conc 32.9 g/dL (32-36); Mean Corpuscular Hgb 28.8 pg (27.0-32.0); Mean Corpuscular Volume 87.6 fL (81-99); Mean Platelet Vol. 13.2 fl (6.2-12.0); Monocyte# 1.15 X10^3/uL; Monocyte% 7.4 % (0-10); NRBC Flagged by Analyzer 0 % (0-5); Neutrophil # 12.66 X10^3/uL (2.7-7.7); Neutrophil % 81.2 % (47-70); POSITIVE MORPHOLOGY YES; Platelet Count 168 K/mm3 (150-450); RBC Distribution Width CV 12.6 % (11.6-14.6); RBC Distribution Width SD 40.6 fl (35.1-43.9); Red Blood Count 3.96 M/mm3 (4.2-5.4); White Blood Count 15.6 K/mm3 (4.4-11.0)
[2023-09-24 12:34] LABS: Differential Indicated SCAN CRITERIA MET
[2023-09-24 12:36] LABS: Differential Comment SCANNED
[2023-09-24 13:17] LABS: Syphilis Antibodies Non-reactive
[2023-09-24] MEDS: Oxytocin 15 Units/NS 250ml 15 UNITS/250 ML IV.SOLN 2 UNITS IV (14:00)
--- NOTE | 2023-09-24 14:07 | HP.PCM.OB_ITS ---
HPI - General General Date of Admission: 09/24/23 HPI Narrative SARITHA GALLOWAY, is a 28 F who presents s/p fall and had 2 quesitonable decels on NST. cat II tracing plan IOL now 3 cm. no vb lof admits good fm, fell onto hip in driveway. Maternal Data Information JOE Calculator Estimated Delivery Date Method Current WG Current Estimate 09/24/23 LMP (Certain) 40w 0d PFSH PFSH Medical History Alcohol use Cholelithiases Complete Conjunctivitis, right eye Frequent headaches Heartburn Hx of abnormal cervical Pap smear Non-smoker Spotting Home Medications docosahexaenoic acid 200 mg capsule ( DHA) 1 mg PO 11/27/22 [History Last Taken 09/23/23 09:00 1 mg] Allergy/AdvReac Type Severity Reaction Status Date / Time No Known Allergies Allergy Verified 09/24/23 10:16 Family History Mother Diabetes Hypertension Grandmother Heart disease Surgical History History of laparoscopic cholecystectomy (~03/2022) Hx of wisdom tooth extraction Social History adopted: No household members: spouse current occupational status: employed 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 current occupational 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: Yes (bloodborne pathogens) pets and animals: Yes pets and animals: dog(s) history of recent travel: Yes ([place], [place]) out of state: Yes out of country: No sexually active: Yes Smoking Status: Never smoker alcohol intake: current alcohol intake frequency: a few times a month Alcohol type: beer and wine details: not while substance use type: does not use well-balanced diet: daily or most days caffeine: Yes Type: coffee Number of servings: 1 and other Number of servings: 1 eating out: 1-3 times/week during the past year weight has: remained stable what type of physical activity do you participate in: walking frequency: 1-2 times per week duration: 15-30 minutes/day maynor/hindu: None seatbelt use: always do you feel safe at home: Yes additional social history: - Dave History 2 Elective abortions Hx Para 0 Spontaneous abortions 1 Hx # Term Pregnancies Ectopic pregnancies Hx # Pregnancies Multiple births # of living children 0 Past Pregnancies Del. Date Name GA/Weeks Outcome Route Bth Weight Gen Labor Lgth Anesthesia Del Ananya Provider FOMilo 11/20/22 miscarriage @5-6 wks Visit Details Expected Delivery Route/Plan Labor Preferences- CB/BF classes: enc labor support person: Dave labor intervention preferences: [] pain management options preferred: epidural cut cord/dad catch: cord : yes PP control planned: yes discussed possible routes of delivery and associated risks: [] special requests: [] Plans Covid status: + covid 32 wk Flu vaccine: given Tdap vaccine: given Rhogam: NA LARC form signed: completed. movement and labor precautions reviewed.n Problem list reviewed and updated with the most current plan of care details and appropriate orders placed. Relevant counseling for the gestational age provided. Continue routine care and follow up unless otherwise noted in visit notes/problem list details OB Flowsheet Initial Weight: Not Recorded Date -?-?-?-?-?-?-?-?-?-?-?-?- EGA Weight BP Urine Prot -?-?-?-?-?-?-?-?-?-?-?-?- Glucose FHR FuHt Pres Dilation -?-?-?-?-?-?-?-?-?-?-?-?- Effaced St Visit Note 02/19/23 -?-?-?-?-?-?-?-?-?-?-?-?- 9w 0d 157 lb 123/81 -?-?-?-?-?-?-?-?-?-?-?-?- 167 -?-?-?-?-?-?-?-?-?-?-?-?- JV- CRL consiste nt with 9 weeks 2 days and LMP. There are signs of a va nishing twin the CRL is less than 5 weeks on the twin. Declines NIPT. 03/16/23 -?-?-?-?-?-?-?-?-?-?-?-?- 12w 4d 157 lb 6 oz 119/73 Nega tive -?-?-?-?-?-?-?-?-?-?-?-?- Negative 158 -?-?-?-?-?-?-?-?-?-?-?-?- LC- no vb/crampi ng. nob labs normal. declines afp. will obtain mfm ultrasound 04/14/23 -?-?-?-?-?-?-?-?-?-?-?-?- 16w 5d 155 lb 4 oz 108/74 Nega tive -?-?-?-?-?-?-?-?-?-?-?-?- Negative 150 -?-?-?-?-?-?-?-?-?-?-?-?- MH-No VB, LOF. N ausea improved. MFM US next week 05/13/23 -?-?-?-?-?-?-?-?-?-?-?-?- 20w 6d 159 lb 8 oz 118/72 Nega tive -?-?-?-?-?-?-?-?-?-?-?-?- Negative 161 -?-?-?-?-?-?-?--?-?-?-?-?- MH-Nausea resolv ed. No VB. NIPT today. 06/10/23 -?-?-?-?-?-?-?-?-?-?-?-?- 24w 6d 164 lb 6 oz 108/78 Nega tive -?-?-?-?-?-?-?-?-?-?-?-?- Negative 156 24 -?-?-?-?-?-?-?-?-?-?-?-?- LC- no vb/ctx/lo f. feeling movement. low risk nipt. resolved CSP. 28 week labs ordered. UC ordered for increased urinary frequency than usual. 07/08/23 -?-?-?-?-?-?-?-?-?-?-?-?- 28w 6d 166 lb 7 oz 117/73 Nega tive -?-?-?-?-?-?-?-?-?-?-?-?- Negative 148 28 -?-?-?-?-?-?-?-?-?-?-?-?- LC- no vb/ctx/lo f. good fm. 3 hour glucose needed. 07/23/23 -?-?-?-?-?-?-?-?-?-?-?-?- 31w 0d 172 lb 114/79 Negative -?-?-?-?-?-?--?-?-?-?-?-?- Negative 130 30 -?-?-?-?-?-?-?-?-?-?-?-?- kw-no vb/lof/ctx . good fm. Passed 3 hour gct. kw-no vb/lof/ctx. good fm. P assed 3 hour gct. Flu shot today. Tdap next visit 08/10/23 -?-?-?-?-?-?-?-?-?-?-?-?- 33w 4d 173 lb 8 oz 108/66 Nega tive -?-?-?-?-?-?-?-?-?-?-?-?- Negative 146 32 -?-?-?-?-?-?-?-?-?-?-?-?- MH-No Vb, LOF. G ood FM. Had Covid last week. Taking low dose ASA daily. Feeling much improved. Larc 08/26/23 -?-?-?-?-?-?-?-?-?-?-?-?- 35w 6d 178 lb 4 oz 126/82 Nega tive -?-?-?-?-?-?-?-?-?-?-?-?- Negative 140 35 -?-?-?-?-?-?-?-?-?-?-?-?- LC- no vb/ctx/lo f. good fm. 09/02/23 -?-?-?-?-?-?-?-?-?-?-?-?- 36w 6d 179 lb 2 oz 126/82 Nega tive -?-?-?-?-?-?-?-?-?-?-?-?- Negative 131 36 -?-?-?-?-?-?-?-?-?-?-?-?- LC- no vb/ctx/lo f. good fm. gbs collected. no concerns today 09/10/23 -?-?-?-?-?-?-?-?-?-?-?-?- 38w 0d 182 lb 182 lb 118/79 Negative -?-?-?-?-?-?-?-?-?-?-?-?- Negative 130 38 Cephalic -?-?-?-?-?-?-?-?-?-?-?-?- sm- no vb lof go od fm no regular ctx declined vaginal exam 09/18/23 -?-?-?-?-?-?-?-?-?-?-?-?- 39w 1d 182 lb 4 oz 124/84 Nega tive -?-?-?-?-?-?-?-?-?-?-?-?- Negative 130 39 Cephalic 1 -?-?-?-?-?-?-?-?-?-?-?-?- 70 -2 kw-no vb/l of/cramping. good fm. labor precautions 09/23/23 -?-?-?-?-?-?-?-?-?-?-?-?- 39w 6d 181 lb 4 oz 128/86 Nega tive -?-?-?-?-?-?-?-?-?-?-?-?- Negative 140 39 Cephalic 2 -?-?-?-?-?-?-?-?-?-?-?-?- 70 -2 JV- no lof , vaginal bleeding, or dec fm. 41 week IOL. NST FHR Rate Baby A Baseline: 140 Variability:: Moderate Accelerations:: 15 x 15 Decelerations:: None NST Reactive:: Yes FHR Category:: Category II (isolated decel x 2, mild variable) Uterine Activity:: irregular ROS Constitutional Constitutional: Reports systems reviewed and no addt'l complaints, except as documented Eyes Eyes: Denies change in vision ENT HEENT: Reports systems reviewed and no addt'l complaints, except as documented; Denies headache(s) Cardiovascular Cardiovascular: Reports systems reviewed and no addt'l complaints, except as documented; Denies chest pain or dyspnea Respiratory/Chest Respiratory/Chest: Reports systems reviewed and no addt'l complaints, except as documented Gastrointestinal Gastrointestinal: Reports systems reviewed and no addt'l complaints, except as documented; Denies abdominal pain Genitourinary Genitourinary: Reports systems reviewed and no addt'l complaints, except as documented, contractions Details: present (irregular) and movement Details: present; Denies dysuria or genital lesions Musculoskeletal Musculoskeletal: Reports systems reviewed and no addt'l complaints, except as documented Neurologic Neurologic: Reports systems reviewed and no addt'l complaints, except as documented Endocrine Endocrinology: Reports systems reviewed and no addt'l complaints, except as documented Vital Signs Vital Signs Vital Signs: 09/24/23 10:20 09/24/23 10:20 09/24/23 10:22 Temperature Temperature Source Pulse Rate 89 98 Blood Pressure 119/78 BP Systolic 119 BP Diastolic 78 Pulse Ox 09/24/23 10:22 09/24/23 10:20 09/24/23 10:20 Temperature 97.9 F Temperature Source Temporal Pulse Rate Blood Pressure BP Systolic BP Diastolic Pulse Ox 96 09/24/23 11:54 09/24/23 11:54 09/24/23 11:54 Temperature Temperature Source Temporal Pulse Rate 94 Blood Pressure 142/72 H BP Systolic 142 BP Diastolic 72 Pulse Ox 09/24/23 11:54 09/24/23 12:09 09/24/23 12:09 Temperature 98.7 F Temperature Source Pulse Rate 80 Blood Pressure 126/89 H BP Systolic 126 BP Diastolic 89 Pulse Ox 09/24/23 12:53 09/24/23 12:53 09/24/23 12:53 Temperature Temperature Source Temporal Pulse Rate 81 Blood Pressure 113/69 BP Systolic 113 BP Diastolic 69 Pulse Ox 09/24/23 12:53 09/24/23 13:43 09/24/23 13:43 Temperature 98.7 F Temperature Source Pulse Rate 78 Blood Pressure 113/73 BP Systolic 113 BP Diastolic 73 Pulse Ox Weight Weight: 183 lb 6.4 oz Body Mass Index (BMI) 31.4 Physical Exam Const alert, oriented x3, no apparent distress and healthy appearing HEENT normocephalic and moist oral mucous membranes Head and Scalp: atraumatic Neck full ROM, no lymphadenopathy, supple and thyroid normal General: trachea midline Lymph Lymphatic: no lymphadenopathy noted Chest inspection of chest normal Resp normal respiratory effort Cardio regular rate GI normal to inspection, nondistended, normoactive bowel sounds, soft to palpation and non-tender Inspection: gravid external exam normal Manual OB Exam: estimated gestational size appropriate, presentation cephalic, dilated, effaced and station Extremity normal to inspection General Extremity: Negative for edema Skin no rashes or lesions noted Neuro no focal motor deficits and deep tendon reflexes 2+ bilaterally Motor Exam: strength 5/5 throughout and clonus absent Psych mental status grossly normal Labs Labs Labs: Blood Type O POSITIVE Antibody Screen NEGATIVE Hct 34.7 % (37-47) L Hgb 11.4 g/dL (12.0-15.0) L Syphilis Total Ab Non-reactive Rubella IgG Antibody Reactive (Nonreactive) Hep Bs Antigen Non-Reactive (Nonreactive) Hepatitis C Antibody Non-Reactive (Nonreactive) Chlamydia DNA (ASIF) Negative (Negative) N.gonorrhoeae DNA (ASIF) Negative (Negative) HIV 1&2 Antibody Non-Reactive (Nonreactive) Glucose 1 Hr 50 gm 161 mg/dL (70-140) H Gest Glucose Tolerance MG/DL Assessment & Plan (1) : QUALIFIERS: Weeks of gestation: 39 weeks Qualified Code(s): Z3A.39 - 39 weeks gestation of COMMENT: declines carrier. NIPT due to choroid plexus cyst: negative GBS (2) Supervision of high-risk : QUALIFIERS: Trimester: second trimester Qualified Code(s): O09.92 - Supervision of high risk , unspecified, second trimester COMMENT: PRR , JOE 09/24/23, girl, Gregoryainey Dave (3) Choroid plexus cyst of fetus: COMMENT: NIPT:low risk, per pt resolved on anatomy US (4) Abnormal glucose tolerance affecting , antepartum: COMMENT: 3 hour glucose- normal (5) COVID-19 affecting in third trimester: COMMENT: 33 wk . low dose ASA daily (6) Encounter for induction of labor: COMMENT: s/p fall, had two decels on monitor, proceed with pit IOL PLAN: Plan Patient presents IOL, plan management for with pitocin/AROM. Pain management: plans epidural. GBS negative. Management of any complications: none I have reviewed the [facility] and made any clinically relevant updates.
[2023-09-24] MEDS: Acetaminophen 500 MG Tablet PO (16:54)
[2023-09-24] MEDS: LACTATED RINGERS 500 ML 999 ML IV (19:00)
[2023-09-24] MEDS: Ondansetron 4 MG/2 ML Vial IV (19:19)
[2023-09-24] MEDS: fentaNYL-bupivacaine (epidural) 100 ML BAG EPIDURAL (20:18)
--- NOTE | 2023-09-24 22:09 | EX.PCM.OBRPT ---
Assessment & Plan (1) Encounter for induction of labor: COMMENT: s/p fall, had two decels on monitor, proceed with pit IOL (2) COVID-19 affecting in third trimester: COMMENT: 33 wk . low dose ASA daily (3) Abnormal glucose tolerance affecting , antepartum: COMMENT: 3 hour glucose- normal (4) Choroid plexus cyst of fetus: COMMENT: NIPT:low risk, per pt resolved on anatomy US (5) Vanishing twin syndrome: (6) Supervision of high-risk : QUALIFIERS: Trimester: second trimester Qualified Code(s): O09.92 - Supervision of high risk , unspecified, second trimester COMMENT: PRR , JOE 09/24/23, girl, Miroslava Dave (7) : QUALIFIERS: Weeks of gestation: 39 weeks Qualified Code(s): Z3A.39 - 39 weeks gestation of COMMENT: declines carrier. NIPT due to choroid plexus cyst: negative GBS (8) Vaginal delivery: COMMENT: SM IOL decels post fall 40 girl Miroslava Maternal Data Information JOE Calculator Estimated Delivery Date Method Current WG Current Estimate 09/24/23 LMP (Certain) 40w 0d Vaginal Delivery Operative Information Date of Procedure: 09/24/23 Pre-Operative Diagnosis: see a/p diagnoses Post-Operative Diagnosis: same Surgery / Procedure Performed: Spontaneous Vaginal Delivery Type of Anesthesia: Epidural Special Medications: none Estimated Blood Loss: 200 Fluids Replaced: crystalloid Findings Description of Procedure: Patient began pushing and delivered the head in the SANTOS presentation. The head was delivered atraumatically and a loose nuchal cord ?1 was identified and the infant delivered through without complication. The anterior and posterior shoulders delivered without complication followed by the rest of the infant and the was placed on the maternal abdomen. Delayed cord clamping was employed for approximately 60 seconds. Cord was clamped and cut and gentle traction was applied to the cord and the placenta delivered spontaneously immediately following it was noted to be intact with three-vessel cord. The perineum and vagina were inspected and noted to have a second degree perineal laceration which was repaired in the usual fashion with 3-0 vicryl rapide. . EBL was 200 cc. Patient and infant tolerated delivery well. Amniotic Fluid Description: Clear Placental Delivery Description: Spontaneous Placenta Disposition: [facility] Cord Vessel Description: 3 Vessels Cord Entanglement: Around neck x 1, loose Delayed Cord Clamping: Yes Post Vaginal Delivery Medications Given After Delivery: IV Pitocin Episiotomy Description: None Complication Complications: None Procedures Urinary/Genital [id number]: [id number] [facility]
--- NOTE | 2023-09-24 22:11 | PCM.DC ---
Discharge Instructions Diet Discharge Diet: No restrictions Activity Discharge Activity: Return to Normal Activity, May Not Drive (while taking narcotic pain medications.) and May Shower May resume sexual activity in: 4-6 weeks Dressing / Incision Call your doctor if your incision/area has: Continuous Slow Oozing, Sudden Increased Bleeding, Increased Pain/ Swelling, Increased Redness and Foul Smelling Discharge Follow Up Care Please Follow Up With: Crissy Rodas MD When: Call [phone] to make an appointment with your doctor in 6 weeks. If you had elevated blood pressure or 4th degree laceration, you will need to be seen in 2 weeks. Test Results: Test results from this visit will be discussed in further detail at your follow-up appointment, if applicable. Discharge Plan Admission Admit Date/Time: 09/24/23 11:30 Attending Provider: Crissy Rodas Primary Care Provider: Orly Velarde Discharge Orders/Prescriptions Prescriptions: No Action DHA 200 mg capsule 1 mg PO Referrals / Follow Up: Orly Velarde DO [Primary Care Provider] - Disposition Disposition (needs filled in before D/C Order can be placed): Home, Self Care
[2023-09-24] MEDS: Lactated Ringers 1,000 ML 200 ML IV (23:02)
[2023-09-24] MEDS: Oxytocin 15 Units/NS 250ml 15 UNITS/250 ML IV.SOLN 334 UNITS IV (23:19)
[2023-09-25] VITALS (31 sets, daily range): BP systolic 111–131; BP diastolic 61–81; PULSE 77–93; RESP 14–16; TEMP 36.4–37.2; O2SAT 96–100
[2023-09-25] MEDS: Oxytocin 15 Units/NS 250ml 15 UNITS/250 ML IV.SOLN 83 UNITS IV (00:05)
[2023-09-25] MEDS: Naproxen 500 MG Tablet PO ×3 (02:49→20:11)
[2023-09-25] MEDS: 0.9% Saline Lock 10 ML Syringe IV (03:10)
[2023-09-25] MEDS: Acetaminophen 500 MG Tablet 1000 MG PO ×2 (08:12→16:21)
--- NOTE | 2023-09-25 08:34 | PCM.PN.OB ---
Subjective Subjective Patient doing well without complaints. Tolerating PO. Ambulating and voiding without difficulty. feeding well. Denies chest pain, shortness of breath, calf pain/swelling, fevers, chills, lightheadedness. Objective Data Objective Data Vital Signs: Vital Signs Temp Pulse Resp BP Pulse Ox O2 Del Method 98.3 F 83 14 127/61 H 100 Room Air 09/25/23 07:50 09/25/23 07:52 09/25/23 07:50 09/25/23 07:52 09/25/23 07:50 09/25/23 07:50 Oxygen Delivery Method Room Air Weight: 183 lb 6.4 oz Body Mass Index (BMI) 31.4 Intake & Output: Intake and Output for Last 24 Hours 09/23/23 09/24/23 09/25/23 23:59 23:59 23:59 Intake Total 1843.83 / 1843.83 740 / 740 Output Total 231 / 231 1300 / 1300 Balance 1612.83 / 1612.83 -560 / -560 Lab / Micro Data 09/24/23 12:00 Labs: Laboratory Results - last 24 hr 09/24/23 12:00: WBC 15.6 H, RBC 3.96 L, Hgb 11.4 L, Hct 34.7 L, MCV 87.6, MCH 28.8, MCHC 32.9, RDW Std Deviation 40.6, RDW Coeff of Pedro Luis 12.6, Plt Count 168, MPV 13.2 H, Immature Gran % (Auto) 0.600, Neut % (Auto) 81.2 H, Lymph % (Auto) 10.3 L, [place] % (Auto) 7.4, Eos % (Auto) 0.2, Baso % (Auto) 0.3, Absolute Neuts (auto) 12.7 H, Absolute Lymphs (auto) 1.60, Nucleated RBC % 0, Differential Comment SCANNED, Syphilis Total Ab Non-reactive, Blood Type O POSITIVE, Antibody Screen NEGATIVE ROS Constitutional Constitutional: Reports systems reviewed and no addt'l complaints, except as documented Cardiovascular Cardiovascular: Reports systems reviewed and no addt'l complaints, except as documented Respiratory/Chest Respiratory/Chest: Reports systems reviewed and no addt'l complaints, except as documented Gastrointestinal Gastrointestinal: Reports systems reviewed and no addt'l complaints, except as documented Physical Exam Const alert, oriented x3 and no apparent distress HEENT Head and Scalp: atraumatic Resp normal respiratory effort GI soft to palpation and non-tender Bimanual Exam - Vag & Uterus: uterus non-tender Uterus Palpation: uterus fundus firm (below Umbilicus) Assessment & Plan (1) Vaginal delivery: COMMENT: SM IOL decels post fall 40 girl Miroslava PLAN: Plan s/p 1. routine post delivery care 2. breast feeding- support given 3. rh positive 4. rubella immune Capacity Legal Stitcher Around Reflex Medical hold order details:: IF a medical hold is selected below, a suggested order for a MEDICAL HOLD will reflex upon signing the document. Next of kin: [place] law dictates a PRIORITY LIST for identifying legal decision-maker/legal next of kin in the following order (LNOK): 1st: The patient?s legal guardian, if any 2nd: The patient's spouse (if status is questionable, consult Risk Management) 3rd: The patient?s adult child(ross) (majority, if multiple children) 4th: The patient?s parents 5th: The patient?s adult siblings (majority, if multiple children siblings)
[2023-09-26 02:12] VITALS: BP 104/62; PULSE 77
[2023-09-26 02:25] VITALS: BP 104/62; PULSE 81; RESP 16; TEMP 36.4; O2SAT 98
[2023-09-26] MEDS: Acetaminophen 500 MG Tablet 1000 MG PO (05:06)
--- NOTE | 2023-09-26 07:17 | PCM.PN.OB ---
Subjective Subjective Patient doing well without complaints. Tolerating PO. Ambulating and voiding without difficulty. feeding well. Denies chest pain, shortness of breath, calf pain/swelling, fevers, chills, lightheadedness. Objective Data Objective Data Vital Signs: Vital Signs Temp Pulse Resp BP Pulse Ox O2 Del Method 97.5 F L 81 16 104/62 98 Room Air 09/26/23 02:25 09/26/23 02:25 09/26/23 02:25 09/26/23 02:25 09/26/23 02:25 09/26/23 02:25 Oxygen Delivery Method Room Air Weight: 183 lb 6.4 oz Body Mass Index (BMI) 31.4 Intake & Output: Intake and Output for Last 24 Hours 09/24/23 09/25/23 09/26/23 23:59 23:59 23:59 Intake Total 1843.83 / 1843.83 740 / 740 Output Total 231 / 231 1300 / 1300 Balance 1612.83 / 1612.83 -560 / -560 Lab / Micro Data 09/24/23 12:00 ROS Constitutional Constitutional: Reports systems reviewed and no addt'l complaints, except as documented Cardiovascular Cardiovascular: Reports systems reviewed and no addt'l complaints, except as documented Respiratory/Chest Respiratory/Chest: Reports systems reviewed and no addt'l complaints, except as documented Gastrointestinal Gastrointestinal: Reports systems reviewed and no addt'l complaints, except as documented Physical Exam Const alert, oriented x3 and no apparent distress HEENT Head and Scalp: atraumatic Resp normal respiratory effort GI soft to palpation and non-tender Bimanual Exam - Vag & Uterus: uterus non-tender Uterus Palpation: uterus fundus firm (below Umbilicus) Assessment & Plan (1) Vaginal delivery: COMMENT: SM IOL decels post fall 40 girl Miroslava PLAN: Plan s/p 1. routine post delivery care 2. breast feeding- support given 3. rh positive 4. rubella immune
[2023-09-26] MEDS: Naproxen 500 MG Tablet PO (07:58)
[2023-09-26 10:00] VITALS: BP 136/71; PULSE 106; RESP 16; TEMP 36.5; O2SAT 98
[2023-09-26 11:19] VITALS: BP 136/71; PULSE 115
[2023-09-26 12:12] VITALS: PULSE 74; RESP 16; TEMP 36.6; O2SAT 98
== END 2023-09-26 12:00 | disposition home or self-care (01) | DRG 807 ==
LOC: WPOUT 11:37 → WP 11:37
PROVIDERS: Admitting Provider Obstetrics & Gynecology; Referring Provider Obstetrics & Gynecology; Visit Provider Obstetrics & Gynecology
DX: O76 Abnormality in fetal heart rate and rhythm complicating labor and delivery (principal); O70.1 Second degree perineal laceration during delivery; O69.81X0 Labor and delivery complicated by cord around neck, without compression, not applicable or unspecified; O31.23X0 Continuing pregnancy after intrauterine death of one fetus or more, third trimester, not applicable or unspecified; Z86.16 Personal history of COVID-19; Z3A.39 39 weeks gestation of pregnancy; Z37.0 Single live birth
CPT/HCPCS: 59025; 59050; 85025; 86780; 86850; 86900; 86901; 99221; J7120; A4216; G0378; J2405

== ENCOUNTER → 2024-10-05 | Outpatient (CLI) | payer BC, SELFPAY ==
[2024-10-08 11:07] LABS: Chlamydia By Nucleic Acid AMP Negative (Negative); Gonococcus By Nucleic Acid AMP Negative (Negative)
== END | disposition home or self-care (01) ==
LOC: LABSPEC 14:50
PROVIDERS: Referring Provider Obstetrics & Gynecology; Visit Provider Obstetrics & Gynecology
DX: O09.90 Supervision of high risk pregnancy, unspecified, unspecified trimester (principal); Z3A.00 Weeks of gestation of pregnancy not specified
CPT/HCPCS: 87086; 87491; 87591

== ENCOUNTER → 2024-10-13 | Outpatient (CLI) | payer BC, SELFPAY ==
[2024-10-13 16:34] LABS: Absolute Lymphocyte Count 1.67 X10^3/uL (0.83-4.51); Absolute Neutrophil Count 6.4 X10^3/uL (2.0-7.7); Basophil# 0.04 X10^3/uL; Basophil% 0.4 % (0-1); Eosinophil# 0.09 X10^3/uL; Hematocrit 37.8 % (37-47); Hemoglobin 12.9 g/dL (12.0-15.0); Lymphocyte # 1.67 X10^3/ul (0.83-4.51); Lymphocyte % 18.7 % (19-41); Mean Corp Hgb Conc 34.1 g/dL (32-36); Mean Corpuscular Hgb 28.9 pg (27.0-32.0); Mean Corpuscular Volume 84.8 fL (81-99); Mean Platelet Vol. 10.8 fl (6.2-12.0); Monocyte# 0.68 X10^3/uL; Monocyte% 7.6 % (0-10); NRBC Flagged by Analyzer 0 % (0-5); Neutrophil # 6.41 X10^3/uL (2.7-7.7); Platelet Count 257 K/mm3 (150-450); RBC Distribution Width CV 12.9 % (11.6-14.6); RBC Distribution Width SD 39.4 fl (35.1-43.9); Red Blood Count 4.46 M/mm3 (4.2-5.4); White Blood Count 8.9 K/mm3 (4.4-11.0)
[2024-10-13 17:54] LABS: HIV - WCH Non-Reactive (Nonreactive); Hepatitis B Surface Antigen Non-Reactive (Nonreactive); Hepatitis C Antibody Non-Reactive (Nonreactive); Rubella IgG Reactive (Nonreactive); Syphilis Antibodies Non-reactive
== END | disposition home or self-care (01) ==
LOC: LAB 16:03
PROVIDERS: Referring Provider Obstetrics & Gynecology; Visit Provider Obstetrics & Gynecology
DX: O09.90 Supervision of high risk pregnancy, unspecified, unspecified trimester (principal); Z3A.00 Weeks of gestation of pregnancy not specified
CPT/HCPCS: 36415; 85025; 86703; 86762; 86780; 86803; 86850; 86900; 86901; 87340

== ENCOUNTER 2024-11-18 18:00 | Emergency (ER) | payer BC, SELFPAY ==
[2024-11-18 18:02] VITALS: BP 118/80; PULSE 120; RESP 16; TEMP 36.7; O2SAT 100; BMI 26.6
[2024-11-18 20:01] VITALS: PULSE 112; RESP 18; O2SAT 100
--- NOTE | 2024-11-18 20:13 | EX.ED.DYSGE1 ---
HPI History of Present Illness Chief Complaint: General Illness Narrative Narrative: Patient is a 29-year-old female G2, P1 currently 17 weeks who presents to the emergency department chief complaint of nausea vomiting not able to tolerate oral intake for the last 24 hours. Patient states that she was prescribed Zofran by her CHIEF UNDERWRITER and states that she has been taking it as much as possible however she still has been vomiting. States that her whole house is sick currently with similar symptoms. She states that her symptoms started on Thursday. She states that she went to urgent care and was given Unasyn today. Despite these medications she was not getting better therefore she came here for the valuation management. Patient states that she feels that she is dehydrated. Patient denies any urinary symptoms denies abdominal pain vaginal spotting or bleeding. States that her first was uncomplicated. PFSH PFSH Medical History Conjunctivitis, right eye Hx of abnormal cervical Pap smear Complete Spotting Heartburn Non-smoker Cholelithiases Frequent headaches Home Medications ?Medication ?Instructions ?Recorded ?Last Taken ?Type multivitamin no.47-iron fum 27 cap PO 09/27/24 Unknown History mg-folate no.1 1 mg-dha 300 mg capsule (PNV-DHA) oseltamivir 75 mg capsule (Tamiflu) 75 mg PO BID 5 days #10 caps 11/17/24 Unknown Rx cephalexin 500 mg capsule 500 mg PO Q12H 5 days #10 caps 11/18/24 Unknown Rx metoclopramide HCl 10 mg tablet 10 mg PO Q6H PRN nausea and 11/18/24 Unknown Rx vomiting #14 tabs ondansetron 4 mg disintegrating 4 mg PO Q6H PRN nausea and 11/18/24 Unknown Rx tablet vomiting #30 tabs Allergy/AdvReac Type Severity Reaction Status Date / Time No Known Allergies Allergy Verified 11/18/24 18:02 Family History Mother Diabetes Hypertension Grandmother Heart disease Surgical History History of laparoscopic cholecystectomy (~03/2022) Hx of wisdom tooth extraction Social History adopted: No household members: spouse and children number of children: 1 current occupational status: employed 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 current occupational 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: Yes (bloodborne pathogens) pets and animals: Yes pets and animals: dog(s) history of recent travel: No ([place], [place]) sexually active: Yes Smoking Status: Never smoker alcohol intake: current alcohol intake frequency: a few times a month Alcohol type: beer and wine details: not while substance use type: does not use well-balanced diet: daily or most days caffeine: No eating out: 1-3 times/week during the past year weight has: increased > 10 lbs what type of physical activity do you participate in: walking frequency: 1-2 times per week duration: 15-30 minutes/day maynor/cheondoism: None seatbelt use: always do you feel safe at home: Yes additional social history: - Dave ROS ROS ED ROS Narrative Constitutional: Complains of chills denies headache, lightness, dizziness Cardiovascular: Denies chest pain Respiratory: Denies shortness of breath Abdomen: Complains of nausea vomiting as noted above denies abdominal pain : Denies vaginal discharge, spotting, hematuria, increased frequency of urinating or painful urination Neurological: Denies numbness, weakness, tingling Musculoskeletal: Denies back pain Skin: Denies rashes or lesions EXAM Physical Exam Narrative Exam Narrative: General: Patient lying in bed rest comfortably did not appear to be in acute distress Head: Atraumatic, normocephalic Eyes: PERRL bilaterally, EOMI bilaterally, no conjunctival injection noted Neck: Soft, supple, trachea midline Cardiovascular: Patient tachycardic with a regular rhythm no murmurs gallops rubs noted Respiratory: Clear to auscultation bilaterally Abdomen: Soft, gravid abdomen no tenderness palpation Extremities: +5/5 strength noted in the bilateral upper and lower extremities, radial pulses +2/4 in the bilateral extremities, no pedal edema on exam Neurological: Patient following commands knew that she was at [facility] year is 2024 Skin: Warm, dry, intact no rashes lesions noted Const Vital Signs: 11/18/24 18:02 11/18/24 20:01 11/18/24 20:33 Temperature 98.0 F Temperature Source Oral Pulse Rate 120 H 112 H Respiratory Rate 16 18 Respiratory Effort Normal Respiratory Pattern Normal Blood Pressure 118/80 Blood Pressure Mean 92 Pulse Ox 100 100 Oxygen Delivery Method Room Air Room Air 11/18/24 22:00 Temperature Temperature Source Pulse Rate 104 H Respiratory Rate 20 H Respiratory Effort Respiratory Pattern Blood Pressure 107/66 Blood Pressure Mean 79 Pulse Ox 98 Oxygen Delivery Method Room Air MDM MDM MDM Narrative Medical decision making narrative: patient is a 29-year-old female who presented to the emergency department the chief complaint of nausea vomiting not able to tolerate anything orally for the last 24 hours. On the differential diagnose includes but not limited to UTI, asymptomatic bacteria, COVID, flu. Once workup is obtained reviewed she will be reevaluated. Patient be given IV fluids and Reglan. Patient test positive for influenza A here in the emergency department.Patient's urinalysis reviewed and showed 150 ketones 500 leukocyte esterase 25-50 white cells with 1+ bacteria gave her a gram Rocephin we will place her on Keflex urine was sent for culture. She was advised to follow-up on urine culture with her primary care physician and take antibiotics as prescribed. Patient is already on Tamiflu. On reevaluation patient she is feeling much improved she would like to go home at this point time. Patient tolerated oral intake here without any vomiting. Patient will also be given prescription for Reglan. She is advised to return with worsening symptoms or any other concerns. She is agreeable this plan as well as her significant other at bedside all question concerns answered she is discharged home in stable condition. Lab Data Labs: Laboratory Results - last 24 hr 11/18/24 20:20 Urine Color Yellow Urine Clarity Sl. Cloudy Urine pH 6.0 Ur Specific [place] 1.020 Urine Protein 15 H Urine Glucose (UA) Normal Urine Ketones 150 A* Urine Occult Blood Negative Urine Nitrite Negative Urine Bilirubin Negative Urine Urobilinogen Normal Ur Leukocyte Esterase 500 H Urine RBC 0-5 SEEN Urine WBC 25-50 SEEN Ur Squamous Epith Cells 5-10 SEEN Urine Bacteria 1+ Urine Mucus 0 SEEN Discharge Plan Triage Chief Complaint: General Illness ED Provider: Alfonso Sylvester Dx/Rx/DC Orders Clinical Impression: Influenza A, , Nausea & vomiting Prescriptions: New metoclopramide HCl 10 mg tablet 10 mg PO Q6H PRN (Reason: nausea and vomiting) Qty: 14 0RF cephalexin 500 mg capsule 500 mg PO Q12H 5 Days Qty: 10 0RF No Action PNV-DHA 27 mg iron-1 mg -300 mg capsule PO oseltamivir [Tamiflu] 75 mg capsule 75 mg PO BID 5 Days Qty: 10 0RF ondansetron 4 mg tablet,disintegrating 4 mg PO Q6H PRN (Reason: nausea and vomiting) Qty: 30 0RF Primary Care Provider: Orly Velarde Referrals: Orly Velarde, [Primary Care Provider] - Activity Restrictions/Additional Instructions: I sent 2 prescriptions to your pharmacy take the antibiotic as prescribed. Follow-up and urine culture with your family physician or your CHIEF UNDERWRITER. Do not take Zofran and Reglan together as these are both antiemetics. Ensure adequate hydration. Continue Tamiflu. Return with worsening symptoms or concerns. He tested positive for influenza A. Print Language: Slovak Disposition Disposition: Home, Self Care
[2024-11-18] MEDS: 0.9% Normal Saline (1000mL) 1,000 ML 999 ML IV ×2 (20:28→22:29)
[2024-11-18] MEDS: Metoclopramide 10 MG/2 ML Vial IV (20:29)
[2024-11-18 20:43] LABS: Mucous, Urine 0 SEEN /hpf (<or=2+)
[2024-11-18 21:20] LABS: Color, Urine Yellow (Yellow); Glucose, Dipstick Normal (Normal); Leukocyte Esterase-Dipstick 500 /ul (Negative); Nitrite-Dipstick Negative (Negative); Occult Blood-Urine Negative /ul (Negative); Protein-Dipstick 15 mg/dl (Negative); Urine Bilirubin Dipstick Negative (Negative); Urine Clarity Sl. Cloudy (Clear); Urine Urobilinogen Normal (Normal)
[2024-11-18 22:00] VITALS: BP 107/66; PULSE 104; RESP 20; O2SAT 98
[2024-11-18 22:03] LABS: Ketone-Dipstick 150 mg/dl (Negative)
[2024-11-18 22:10] LABS: Bacteria 1+ /hpf (None Seen); Red Blood Cells-Urine 0-5 SEEN /hpf (0-5); Squamous Epithelial Cells - UA 5-10 SEEN /hpf (5-10); White Blood Cells 25-50 SEEN /hpf (0-5)
[2024-11-18] MEDS: Ceftriaxone 1 GM/50 ML BAG IV (23:06)
[2024-11-19] VITALS: PULSE 81; RESP 21; O2SAT 97
== END 2024-11-19 00:10 | disposition home or self-care (01) ==
PROVIDERS: Emergency Provider Emergency Medicine; Visit Provider Emergency Medicine
DX: O99.512 Diseases of the respiratory system complicating pregnancy, second trimester (principal); J10.1 Influenza due to other identified influenza virus with other respiratory manifestations; O21.9 Vomiting of pregnancy, unspecified; Z3A.17 17 weeks gestation of pregnancy; Z90.49 Acquired absence of other specified parts of digestive tract
CPT/HCPCS: 81001; 87086; 87088; 87631; 96361; 96365; 96375; 99283

== ENCOUNTER → 2024-12-28 | Outpatient (CLI) | payer BC, SELFPAY | END | disposition home or self-care (01) | LOC: LABSPEC 16:01 | PROVIDERS: Referring Provider Obstetrics & Gynecology; Visit Provider Obstetrics & Gynecology | DX: R10.2 Pelvic and perineal pain (principal) | CPT/HCPCS: 87086; 87088 ==

== ENCOUNTER → 2025-01-23 | Outpatient (CLI) | payer BC, SELFPAY ==
[2025-01-23 12:43] LABS: Absolute Lymphocyte Count 1.13 X10^3/uL (0.83-4.51); Absolute Neutrophil Count 7.4 X10^3/uL (2.0-7.7); Basophil# 0.03 X10^3/uL; Basophil% 0.3 % (0-1); Eosinophil# 0.08 X10^3/uL; Eosinophils% 0.9 % (0-5); Hematocrit 30.2 % (37-47); Hemoglobin 10.3 g/dL (12.0-15.0); Lymphocyte # 1.13 X10^3/ul (0.83-4.51); Mean Corp Hgb Conc 34.1 g/dL (32-36); Mean Corpuscular Hgb 29.8 pg (27.0-32.0); Mean Corpuscular Volume 87.3 fL (81-99); Mean Platelet Vol. 11.5 fl (6.2-12.0); Monocyte# 0.69 X10^3/uL; Monocyte% 7.3 % (0-10); NRBC Flagged by Analyzer 0 % (0-5); Neutrophil # 7.43 X10^3/uL (2.7-7.7); Neutrophil % 79.1 % (47-70); Platelet Count 181 K/mm3 (150-450); RBC Distribution Width CV 13.2 % (11.6-14.6); Red Blood Count 3.46 M/mm3 (4.2-5.4); White Blood Count 9.4 K/mm3 (4.4-11.0)
[2025-01-23 13:53] LABS: Glucose Challenge Gest 1H 50g 121 mg/dL (70-140); HIV Nonreactive (Nonreactive); Syphilis Antibodies Nonreactive (Nonreactive)
== END | disposition home or self-care (01) ==
PROVIDERS: Nurse Practitioner Women's Health; Referring Provider Obstetrics & Gynecology; Visit Provider Obstetrics & Gynecology
DX: O09.92 Supervision of high risk pregnancy, unspecified, second trimester (principal); Z13.1 Encounter for screening for diabetes mellitus
CPT/HCPCS: 36415; 82950; 85025; 86703; 86780

== ENCOUNTER → 2025-03-20 | Outpatient (CLI) | payer OTHER, SELFPAY ==
[2025-03-20 12:34] LABS: Hematocrit 31.2 % (37-47); Hemoglobin 10.1 g/dL (12.0-15.0); Immature Granulocytes Count 0.060 X10^3/uL (0.0-0.0); Mean Corp Hgb Conc 32.4 g/dL (32-36); Mean Corpuscular Volume 84.8 fL (81-99); Mean Platelet Vol. 11.9 fl (6.2-12.0); NRBC Flagged by Analyzer 0 % (0-5); Platelet Count 199 K/mm3 (150-450); RBC Distribution Width CV 13.1 % (11.6-14.6); RBC Distribution Width SD 40.3 fl (35.1-43.9); Red Blood Count 3.68 M/mm3 (4.2-5.4); White Blood Count 8.9 K/mm3 (4.4-11.0)
== END | disposition home or self-care (01) ==
PROVIDERS: Obstetrics & Gynecology; Referring Provider Nurse Practitioner Women's Health; Visit Provider Nurse Practitioner Women's Health
DX: O99.019 Anemia complicating pregnancy, unspecified trimester (principal); Z3A.00 Weeks of gestation of pregnancy not specified
CPT/HCPCS: 36415; 85025

== ENCOUNTER → 2025-03-30 | Outpatient (CLI) | payer OTHER, SELFPAY | END | disposition home or self-care (01) | LOC: LABSPEC 16:13 | PROVIDERS: Visit Provider Advanced Practice Midwife | DX: O09.93 Supervision of high risk pregnancy, unspecified, third trimester (principal); Z3A.36 36 weeks gestation of pregnancy | CPT/HCPCS: 87081 ==

== ENCOUNTER 2025-04-22 09:10 | Inpatient (IN) | payer OTHER, SELFPAY ==
[2025-04-22] VITALS (55 sets, daily range): BP systolic 85–134; BP diastolic 50–76; PULSE 68–98; RESP 16–18; TEMP 35.9–36.8; O2SAT 90–100; BMI 28.3
--- OUTSIDE RECORDS SUMMARY | 2025-04-22 08:51 | XMS RPT_ITS | CCD ---
Author Organization [facility] Care Team Providers Care Quarter Trimmer Name Role Phone EMPLOYEE, HEALTH Unavailable Unavailable EMPLOYEE, HEALTH Unavailable Unavailable EMPLOYEE, HEALTH Unavailable Unavailable EMPLOYEE, HEALTH Unavailable Unavailable EMPLOYEE, HEALTH Unavailable Unavailable EMPLOYEE, HEALTH Unavailable Unavailable Dr. Allyssa Velarde Primary Care Provider 1(12 04) Dr. Allyssa Velarde Referring Provider Dr. Allyssa Godinez Attending Provider 1(330) Dr. Dillon Gonzales Attending Provider Dr. Dillon Gonzales Other Provider Dr. Allyssa Velarde Primary Care Provider 1(12 04) Dr. Allyssa Velarde Referring Provider Dr. Allyssa Godinez Attending Provider 1(330) Dr. Allyssa Velarde Primary Care Provider 1(12 04) Dr. Allyssa Velarde Referring Provider Dr. Farrah Manning Attending Provider 1(12 04) Dr. Allyssa Godinez Attending Provider 1(330) BRAYAN Osuna Attending Provider 1(330) Dr. Allyssa Velarde Primary Care Provider 1(12 04) Dr. Allyssa Velarde Referring Provider Dr. Farrah Manning Attending Provider 1(12 04) Cassi COKER, SABINE Prieto Attending Provider 1(330 ) Dr. Allyssa Velarde Primary Care Provider 1(3 30) Dr. Allyssa Velarde Referring Provider Dr. Allyssa Godinez Attending Provider 1(330) Dr. Allyssa Velarde Primary Care Provider 1(3 30) Dr. Allyssa Velarde Referring Provider Dr. Allyssa Godinez Attending Provider [phone] Cassi CURRENCY EXAMINER, CURRENCY EXAMINER-C Ida Attending Provider 1(330 ) BRAYAN Osuna Attending Provider 1(330) Fiorella MENDEZ, ANDREA Patterson Attending Provider BRAYAN Daniel Attending Provider 1(330) Dr. Allyssa Velarde Primary Care Provider 1( 30) Dr. Allysas Velarde Referring Provider Dr. Allyssa Godinez Attending Provider [phone] Cassi CURRENCY EXAMINER, CURRENCY EXAMINER-C Ida Attending Provider 1(330 ) Dr. Allyssa Velarde Primary Care Provider 1(3 30) Dr. Allyssa Velarde Referring Provider Dr. Allyssa Godinez Attending Provider [phone] Cassi CURRENCY EXAMINER, CURRENCY EXAMINER-C Ida Attending Provider 1(330 ) Dr. Crissy Rodas Attending Provider 1(330 ) Dr. Farrah Manning Attending Provider 1(3 30) Dr. Crissy Rodas Admit Provider 1(330) Dr. Crissy Rodas Referring Provider 1(330 ) Dr. Crissy Rodas Other Provider [phone] Allyssa Velarde DO Primary Care Provider 1(33 0) ALLYSSA VELARDE Primary Care Unavailable WENCESLAO SHORT JR Attending Unavailable Dr. Allyssa Velarde DO Primary Care Provider Dr. Allyssa Velarde DO Referring Provider 1(12 04) Dylan Restrepo DO, Dr. Yan Attending Provider Dylan Restrepo DO, Dr. Yan Referring Provider Adrianna HIGUERA, Dr. Woodward Attending Provider Nga ARIAS, Dr. Hamilton Emergency Provider [phone] ALLYSSA VELARDE Primary Care Unavailable FARRAH MCKEON Referring Unavailab KRISTINA Ordoñez Attending Unavailable FARRAH MCKEON Referring Unavailab MISAEL Llanos Attending Unavailable ALLYSSA VELARDE Primary Care Unavailable Nga ARIAS, Dr. Hamilton Attending Provider [phone] Cassi CURRENCY EXAMINER-CIda Attending Provider [phone] Corina Daniel CNM Attending Provider 1(330) Syd ARIAS, Dr. Allyssa Munoz Primary Care Provider Dylan Restrepo DO, Dr. Yan Attending Provider Dylan Restrepo DO, Dr. Yan Referring Provider Syd ARIAS, Dr. Allyssa Munoz Referring Provider 1(12 04) Syd ARIAS, Dr. Allyssa Munoz Primary Care Provider Dylan Restrepo DO, Dr. Yan Attending Provider Dr. Farrah Manning DO Referring Provider Dr. Allyssa Velarde DO Primary Care Provider Dr. Allyssa Velarde DO Referring Provider 1(12 04) Adrianna HIGUERA, Dr. Woodward Attending Provider Syd ARIAS, Dr. Allyssa Munoz Primary Care Provider Cassi CURRENCY EXAMINER-CIda Referring Provider [phone] Self Schedule, [facility] Attending Provider Brenda vailable Syd ARIAS, Dr. Allyssa Munoz Primary Care Provider Dr. Allyssa Velarde DO Referring Provider [phone] Cassi COKER-CIda Attending Provider [phone] Allyssa Velarde Primary Care Unavailable Syd, Allyssa Munoz Referring Unavailable Ida Ye Attending Unavailable Syd, Allyssa Munoz Primary Care Unavailable Syd, Allyssa Munoz Referring Unavailable Ida Ye Attending Unavailable Dylan VelFarrah marcano Attending Unavailabl e Sdy, Allyssa Munoz Primary Care Unavailable Syd, Allyssa Munoz Referring Unavailable Syd, Allyssaosmel Munoz Primary Care Unavailable Corina Daniel Attending Unavailable Syd, Allyssa Munoz Primary Care Unavailable Alfonso Sylvester Attending Unavailable Dylan Velkrys, Farrah Referring Unavailabl e Syd, Allyssa Munoz Primary Care Unavailable Vande Velkrys, Farrah Attending Unavailabl e Syd, Allyssa Munoz Primary Care Unavailable Vande Velde, Farrah Referring Unavailabl e Vande Velde, Farrah Attending Unavailabl e Vande Velde, Farrah Referring Unavailabl e Syd, Allyssa Munoz Primary Care Unavailable Vande Lauro, Farrah Attending Unavailabl e Syd, Allyssa Munoz Primary Care Unavailable Syd, Allyssa Munoz Referring Unavailable Ida Ye Attending Unavailable Vande Velde, Farrah Referring Unavailabl e Syd, Allyssa Munoz Primary Care Unavailable Vande Velde, Farrah Attending Unavailabl e Syd, Allyssa Munoz Primary Care Unavailable Syd, Allyssa Munoz Referring Unavailable Crissy Rodas Attending Unavailable Self Schedule, [facility] Attending Allyssa Burleson Referring Unavailable Syd, Allyssa Munoz Primary Care Unavailable Syd, Allyssa Munoz Referring Unavailable Corina Daniel Attending Unavailable Syd, Allyssaosmel Munoz Primary Care Unavailable Syd, Allyssaosmel Munoz Primary Care Unavailable Syd, Allyssa Munoz Referring Unavailable Corina Daniel Attending Unavailable Syd, Allyssa Munoz Primary Care Unavailable Syd, Allyssa Munoz Referring Unavailable Vande Velde, Farrah Attending Unavailabl e Syd, Allyssa Munoz Primary Care Unavailable SydAllyssa eric Referring Unavailable Cassi, Ida Attending Unavailable Allyssa Velarde Primary Care Unavailable Syd, Allyssa Munoz Referring Unavailable Corina Daniel Attending Unavailable Syd, Allyssa Munoz Primary Care Unavailable Syd, Allyssa Munoz Referring Unavailable Corina Daniel Attending Unavailable Syd, Allyssa Munoz Primary Care Unavailable Syd, Allyssa Munoz Referring Unavailable Corina Daniel Attending Unavailable Syd, Allyssa Munoz Primary Care Unavailable Syd, Allyssa Munoz Referring Unavailable Crissy Rodas Attending Unavailable Syd, Allyssa Munoz Primary Care Unavailable Syd, Allyssa Munoz Referring Unavailable Farrah Manning Attending [facility] Syd, Allyssa Munoz Referring Unavailable Syd, Allyssa Munoz Primary Care Unavailable Crissy Rodas Attending Unavailable Syd, Allyssa Munoz Primary Care Unavailable Ida Ye Referring Unavailable Ida Ye Attending Unavailable Allergies Allergy Classification Reported Allergen(s) Allergy Type Date of Onset Reaction(s) Facility (4 sources) Azithromycin; Translations: [AZITHROMYCIN] Drug Allergy 11-18-2024 Rash [facility] Medications Current Medications Medication Drug Class(es) Dates Sig (Normalized) Sig (Original) acetaminophen 325 mg oral tablet (3 sources) take 2 tablets by mouth every six hours as needed acetaminophen (TYLENOL) 325 mg tablet Take 650 mg by mouth every 6 hours as needed for pain or fever (specify temp.). Active azithromycin 250 mg oral tablet (20 sources) Macrolide Antimicrobial Start: 09-02-2021 Azithromycin (Zithromax Z-Lorenzo) 250 mg tablet Active 0 PO .COMPLEX 6 September 02, 2021 1:00am For 250 mg dose pack: take 500 mg today (day 1), then 250 mg for 4 days (days 2-5) PO Start: 04-29-2018 End: 05-04-2019 take 2-5 tablets by mouth once daily Azithromycin 250 mg tablet Discontinued 0 PO .COMPLEX 6 0 April 29, 2018 12:00am May 04, 2019 8:15am take 500 mg today (day 1), then 250 mg for 4 days (days 2-5) PO doxylamine succinate 10 mg / pyridoxine hydrochloride 10 mg delayed release oral tablet (3 sources) Start: 03-14-2025 doxylamine-pyridoxine, vit B6, 10-10 mg TbEC Indications: Nausea and vomiting, unspecified vomiting type , Congestion of nasal sinus Take 2 tabs at night. If symptoms persist after 2 days add one tab in the morning. If symptoms still persist after 4 days add a tab mid-day 12 tablet 11/18/2024 Active fluticasone propionate 0.05 mg/actuat metered dose nasal spray (1 source) Corticosteroid Start: 09-02-2021 take 1 spray(s) nasal route once daily Fluticasone Propionate (Flonase Allergy Relief) 50 mcg/actuation spray,suspension Active 2 SPRAY INTRANASAL DAILY September 02, 2021 1:00am administer into each nostril loratadine 10 mg oral tablet (12 sources) Start: 12-28-2024 take 1 tablet by mouth once daily Loratadine (Claritin) 10 mg tablet Active 10 mg PO daily December 28, 2024 12:00am Multivit 24-Bcqa-Tsdqir 1-Dha (Pnv-Dha) 27 mg iron-1 mg -300 mg capsule (13 sources) Start: 09-27-2024 Multivit 69-Lhnh-Cbmvym 1-Dha (Pnv-Dha) 27 mg iron-1 mg -300 mg capsule Active NMA PO September 27, 2024 1:00am ondansetron 4 mg disintegrating oral tablet (20 sources) Serotonin-3 Receptor Antagonist Start: 09-08-2024 take 1 tablet by mouth every eight hours as needed ondansetron orally disintegrating (ZOFRAN ODT) 4 mg disintegrating tablet Take 4 mg by mouth every 8 hours as needed for nausea/vomiting. 09/08/2024 Active Start: 09-08-2024 End: 11-18-2024 take 1 tablet by mouth every six hours as needed for nausea and vomiting Ondansetron 4 mg tablet,disintegrating Active 4 mg PO EVERY 6 HOURS as needed for nausea and vomiting November 18, 2024 10:20am Start: 02-19-2023 End: 09-24-2023 take 1 tablet by mouth every eight hours as needed for nausea and vomiting Ondansetron 4 mg tablet,disintegrating Discontinued 4 mg PO Q8H as needed for nausea and vomiting 04 12February 19, 2023 12:00am September 24, 2023 11:17am Start: 03-24-2022 take 4 mg by mouth t hree times daily as needed Ondansetron Active 4 MG PO 3 TIMES DAILY NEEDED March 24, 2022 6:26am Completed/Discontinued Medications Medication Drug Class(es) Dates Sig (Normalized) Sig (Original) acetaminophen 325 mg / HYDROcodone bitartrate 5 mg oral tablet (20 sources) Opioid Agonist Start: 04-03-2022 End: 04-08-2022 Hydrocodone-Acetamino phen 5-325 mg tablet Discontinued 1 {tbl} PO Q4H as needed for pain 20 5 0 April 03, 2022 April 07, 2022 12:00am April 08, 2022 12:03am Cholelithiasis Calculus of gallbladder without cholecystitis without obstruction Start: 04-03-2022 End: 04-08-2022 take 1 tablet by mouth every four hours Hydrocodone-Acetaminophen Discontinued 1 TABLET PO Q4H 20 5 April 03, 2022 April 07, 2022 11:03pm acetaminophen 325 mg / oxyCODONE hydrochloride 5 mg oral tablet (20 sources) Opioid Agonist Start: 2022 End: 04-15-2022 Oxycodone-Acetaminophen (Percocet) 5-325 mg tablet Discontinued 1 {tbl} PO Q4H as needed for pain 20 5 0 2022 April 15, 2022 9:55am Cholelithiasis Calculus of gallbladder without cholecystitis without obstruction amoxicillin 500 mg oral capsule (20 sources) Penicillin-class Antibacterial Start: 05-04-2019 End: 05-14-2019 take 2 capsules by mouth twice daily Amoxicillin 500 mg capsule Discontinued 1000 mg PO TWICE A DAY 40 10 0 May 04, 2019 12:00am May 13, 2019 12:00am May 14, 2019 12:08am To start only if symptoms as described in office today should appear; pt acknowledges understanding Start: 05-04-2019 End: 05-14-2019 take 1000 mg by mouth twice daily Amoxicillin Discontinued 1000 MG PO TWICE A DAY 40 May 03, 2019 11:00pm May 13, 2019 11:08pm To start only if symptoms as described in office today should appear; pt acknowledges understanding Start: 09-03-2017 End: 09-13-2017 take 2 capsules by mouth twice daily Amoxicillin 500 mg capsule Discontinued 1000 mg PO TWICE A DAY 40 10 0 September 03, 2017 1:00am September 12, 2017 1:00am September 13, 2017 1:07am Start: 09-03-2017 End: 09-13-2017 take 1000 mg by mouth twice daily Amoxicillin Discontinued 1000 MG PO TWICE A DAY 40 10 September 03, 2017 12:00am September 13, 2017 12:07am amoxicillin 875 mg / clavulanate 125 mg oral tablet (9 sources) Penicillin-class Antibacterial Start: 03-26-2025 End: 2025 Amoxicillin-Pot Clavulanate 875-125 mg tablet Discontinued 1 {tbl} PO TWICE A DAY 14 7 0 March 26, 2025 12:00am April 01, 2025 12:00am 2025 12:08am Start: 11-18-2024 End: 11-23-2024 take 1 tablet by mouth twice daily amoxicillin-clavulanate potassium (AUGMENTIN) 875-125 mg per tablet Indications: Congestion of nasal sinus Take 1 tablet by mouth two times a day for 5 days. 10 tablet 11/18/2024 11/23/2024 Active cephalexin 500 mg oral capsule (20 sources) Cephalosporin Antibacterial Start: 11-18-2024 End: 12-28-2024 take 1 capsule by mouth every twelve hours Cephalexin 500 mg capsule Discontinued 500 mg PO Q12H 10 5 0 November 18, 2024 12:00am December 28, 2024 2:53pm Start: 03-24-2022 End: 03-28-2022 take 1 capsule by mouth twice daily Cephalexin 500 mg capsule Discontinued 500 mg PO TWICE A DAY 10 5 0 March 24, 2022 6:30am March 28, 2022 8:07am docosahexaenoic acid 200 mg oral capsule (20 sources) Start: 11-27-2022 End: 09-27-2024 Docosahexaenoic Acid ( Dha) 200 mg capsule Discontinued 1 mg PO November 27, 2022 12:00am September 27, 2024 9:22am Norethindrone Ac-Eth Estradiol (20 sources) Estrogen Start: 08-17-2017 End: 11-27-2022 Norethindrone Ac-Eth Estradiol (June09/26 ()) 1-20 mg-mcg tablet Discontinued 1 {tbl} PO daily August 17, 2017 1:00am November 27, 2022 9:52am Start: 08-17-2017 End: 11-27-2022 take 0.05 ug by mouth once daily Norethindrone Ac-Eth Estradiol (09/26 ()) 1-20 mg-mcg tablet Discontinued 1 TABLET PO daily August 17, 2017 12:00am November 27, 2022 8:52am Start: 08-17-2017 End: 11-27-2022 take 0.05 ug by mouth once daily Norethindrone Ac-Eth Estradiol (09/26 ()) 1-20 mg-mcg tablet Discontinued 1 TABLET PO daily August 17, 2017 1:00am November 27, 2022 9:52am Start: 08-17-2017 take 0.05 ug by mout h once daily Norethindrone Ac-Eth Estradiol (09/26 ()) 1-20 mg-mcg tablet Active 1 TABLET PO daily August 17, 2017 1:00am metoclopramide 10 mg oral tablet (13 sources) Dopamine-2 Receptor Antagonist Start: 11-18-2024 End: 03-26-2025 take 1 tablet by mouth every six hours as needed for nausea and vomiting Metoclopramide Hcl 10 mg tablet Discontinued 10 mg PO EVERY 6 HOURS as needed for nausea and vomiting 14 0 November 18, 2024 12:00am March 26, 2025 8:54am norethindrone 0.35 mg oral tablet (13 sources) Start: 11-06-2023 End: 09-27-2024 take 1 tablet by mouth once daily Norethindrone (Contraceptive) 0.35 mg tablet Discontinued 0.35 mg PO DAILY 84 3 November 06, 2023 1:00am September 27, 2024 9:22am Encounter for contraceptive management Encounter for contraceptive management, unspecified start day 1 of menstrual cycle oseltamivir 75 mg oral capsule (13 sources) Neuraminidase Inhibitor Start: 11-17-2024 End: 11-22-2024 take 1 capsule by mouth twice daily Oseltamivir (Tamiflu) 75 mg capsule Discontinued 75 mg PO TWICE A DAY 10 5 0 November 17, 2024 12:00am November 21, 2024 12:00am November 22, 2024 12:12am SUMAtriptan 50 mg oral tablet (20 sources) Serotonin-1b and Serotonin-1d Receptor Agonist Start: 08-17-2017 End: 05-04-2019 take 1 tablet by mouth once Sumatriptan Succinate (Imitrex) 50 mg tablet Discontinued 50 mg PO ONCE August 17, 2017 1:00am May 04, 2019 8:15am tobramycin 3 mg/ml ophthalmic solution (16 sources) Aminoglycoside Antibacterial Start: 07-20-2023 End: 07-23-2023 take 0.3 drop(s) into the eye(s) every two hours Tobramycin 0.3 % drops Discontinued 1 NMA OPHTHALMIC Q2H 5 3 0 July 20, 2023 1:00am July 22, 2023 1:00am July 23, 2023 1:05am to affected eye while awake 24 hr verapamil hydrochloride 100 mg extended release oral capsule (20 sources) Calcium Channel Pilar Start: 08-17-2017 End: 05-04-2019 take 1 capsule by mouth every twenty-four hours Verapamil 100 mg capsule, [address] Discontinued 100 mg PO ONCE August 17, 2017 1:00am May 04, 2019 8:15am Start: 08-17-2017 End: 05-04-2019 take 100 mg by mouth once Verapamil Discontinued 100 M G PO ONCE August 17, 2017 12:00am May 04, 2019 7:15am Problems Active Problems Problem Classification Problem Date Documented Da te Episodic/Chronic Biliary tract disease (20 sources) Biliary calculus; Translations: [Calculus of gallbladder without cholecystitis without obstruction] Episodic Contraceptive and procreative management (13 sources) Patient encounter status; Translations: [Encounter for contraceptive management, unspecified] 09-27-2024 Episodic Diabetes or abnormal glucose tolerance complicating ; childbirth; or the puerperium (20 sources) Abnormal glucose tolerance in mother complicating , childbirth AND/OR puerperium; Translations: [Abnormal glucose complicating ] 07-20-2023 Episodic Comment on above: 3 hour glucose- norm al Genitourinary symptoms and ill-defined conditions (20 sources) Asymptomatic bacteriuria; Translations: [Bacteriuria] 04-01-2022 Episodic Headache; including migraine (20 sources) Cervicogenic headache; Translations: [Cervicogenic headache] 08-17-2017 Episodic Immunizations and screening for infectious disease (1 source) Encounter for immunization; Translations: [Encounter for immunization] Onset: 02-06-2025 Episodic Inflammation; infection of eye (except that caused by tuberculosis or sexually transmitteddisease) (20 sources) Conjunctivitis of right eye; Translations: [Unspecified conjunctivitis] 07-20-2023 Episodic Influenza (13 sources) Influenza due to Influenza A virus; Translations: [Influenza due to other identified influenza virus with other respiratory manifestations] 11-18-2024 Episodic Menstrual disorders (20 sources) Menstrual spotting; Translations: [Excessive and frequent menstruation with regular cycle] 11-17-2022 Chronic Comment on above: hcg x 2 Nausea and vomiting (15 sources) Nausea and vomiting; Translations: [Nausea with vomiting, unspecified] Onset: 11-18-2024 11-18-2024 Episodic Other bone disease and musculoskeletal deformities (20 sources) Segmental and somatic dysfunction; Translations: [Segmental and somatic dysfunction of cervical region] 08-17-2017 Episodic Other bone disease and musculoskeletal deformities (20 sources) Segmental and somatic dysfunction of lumbar region; Translations: [Nonallopathic lesions, lumbar region] Onset: 04-17-2025 Episodic Other bone disease and musculoskeletal deformities (20 sources) Segmental and somatic dysfunction of pelvic region; Translations: [Nonallopathic lesions, pelvic region] Episodic Other bone disease and musculoskeletal deformities (20 sources) Segmental and somatic dysfunction of thoracic region; Translations: [Nonallopathic lesions, thoracic region] Onset: 04-17-2025 Episodic Other bone disease and musculoskeletal deformities (20 sources) Segmental and somatic dysfunction of cervical region; Translations: [Nonallopathic lesions, cervical region] Onset: 04-17-2025 09-30-2022 Episodic Other bone disease and musculoskeletal deformities (20 sources) Segmental and somatic dysfunction of sacral region; Translations: [Nonallopathic lesions, sacral region] Onset: 04-17-2025 02-23-2023 Episodic Other complications of (20 sources) Anemia of ; Translations: [Anemia complicating , unspecified trimester] 01-25-2025 Chronic Comment on above: PO iron. cbc in 4 we eks Was not taking PNV w /FE and started. cbc in 4 weeks Was not taking PNV w /FE and started. cbc in 4 weeks: persists and FE added Other complications of (1 source) Anemia complicating , third trimester; Translations: [Anemia complicating , third trimester] Onset: 04-17-2025 Chronic Other complications of (1 source) Anemia complicating , unspecified trimester; Translations: [Anemia complicating , unspecified trimester] Onset: 03-23-2025 Chronic Other complications of (20 sources) High risk ; Translations: [Supervision of high risk , unspecified, unspecified trimester] 02-12-2023 Episodic Comment on above: PRR, , JOE , PC Delericy, Dave PRR , JOE 09/24/2 4, girl, Delainey Dave PRR, , JOE , girl PC Loreny, Dave Other complications of (20 sources) Vanishing twin syndrome; Translations: [Continuing after spontaneous of one fetus or more, unspecified trimester, not applicable or unspecified] 02-19-2023 Episodic Other complications of (20 sources) Continuing after spontaneous of one fetus or more, unspecified trimester, not applicable or unspecified; Translations: [Twin with loss and retention of one fetus, unspecified as to episode of care or not applicable] 03-16-2023 Episodic Other complications of (15 sources) Disease caused by 2019-nCoV; Translations: [Other viral diseases complicating , third trimester] 08-04-2023 Episodic Comment on above: 33 wk . low dose ASA daily Other complications of (10 sources) Other viral diseases complicating , third trimester; Translations: [Other viral diseases in the mother, antepartum condition or complication] 08-10-2023 Episodic Other complications of (20 sources) H/O: miscarriage; Translations: [Supervision of with other poor reproductive or obstetric history, unspecified trimester] 09-27-2024 Episodic Other complications of (20 sources) ultrasound scan abnormal; Translations: [Abnormal ultrasonic finding on screening of mother] 12-26-2024 Episodic Comment on above: CVI (normal variant) noted. MFM will bring back in 1 month to monitor Appt 12/26:RESOLVED Other complications of (20 sources) Urinary tract infection in ; Translations: [Unspecified infection of urinary tract in , unspecified trimester] 12-28-2024 Episodic Comment on above: Dx [facility] urgent care. Needs rpt culture next visit Dx [facility] urgent care. Needs rpt culture next visit/negative Other complications of (4 sources) Reduced movement; Translations: [Decreased movements, unspecified trimester, not applicable or unspecified] 04-13-2025 Episodic Other complications of (1 source) Supervision of high risk , unspecified, third trimester; Translations: [Supervision of high risk , unspecified, third trimester] Onset: 04-17-2025 Episodic Other complications of (1 source) Unspecified infection of urinary tract in , second trimester; Translations: [Unspecified infection of urinary tract in , second trimester] Onset: 04-17-2025 Episodic Other complications of (1 source) Abnormal ultrasonic finding on screening of mother; Translations: [Abnormal ultrasonic finding on screening of mother] Onset: 04-17-2025 Episodic Other complications of (1 source) Supervision of with other poor reproductive or obstetric history, unspecified trimester; Translations: [Supervision of with other poor reproductive or obstetric history, unspecified trimester] Onset: 04-17-2025 Episodic Other complications of (1 source) Decreased movements, unspecified trimester, not applicable or unspecified; Translations: [Decreased movements, unspecified trimester, not applicable or unspecified] Onset: 04-13-2025 Episodic Other complications of (1 source) Supervision of high risk , unspecified, second trimester; Translations: [Supervision of high risk , unspecified, second trimester] Onset: 02-24-2025 Episodic Other conditions (13 sources) choroid plexus cyst 09-24-2023 Episodic Comment on above: NIPT:low risk, per p t resolved on anatomy US Other and delivery including normal (20 sources) ; Translations: [Encounter for supervision of normal , unspecified, unspecified trimester] 02-12-2023 Episodic Comment on above: SM IOL decels po st fall 39 girl Miroslava s/p fall, had two de cels on monitor, proceed with pit IOL declined NIPT & Salomon ier testing declines carrier. NI PT due to choroid plexus cyst:negative GBS GBS neg, declined NI PT & Carrier testing Other upper respiratory disease (1 source) Congestion of nasal sinus; Translations: [Nasal congestion] 11-18-2024 Episodic Other upper respiratory disease (1 source) Nasal congestion; Translations: [Congestion of nasal sinus] Onset: 11-18-2024 Episodic Other upper respiratory infections (20 sources) Sinusitis; Translations: [Chronic sinusitis, unspecified] 09-03-2017 Chronic Other upper respiratory infections (9 sources) Upper respiratory infection; Translations: [Acute upper respiratory infection, unspecified] Onset: 04-03-2025 05-04-2019 Episodic Residual codes; unclassified (7 sources) H/O: 1 miscarriage; Translations: [Personal history of other complications of , childbirth and the puerperium] 02-12-2023 Episodic Residual codes; unclassified (20 sources) Personal history of other complications of , childbirth and the puerperium; Translations: [Personal history of other genital system and obstetric disorders] 02-19-2023 Episodic Residual codes; unclassified (1 source) 39 weeks gestation of ; Translations: [39 weeks gestation of ] Onset: 04-17-2025 Episodic Residual codes; unclassified (1 source) 37 weeks gestation of ; Translations: [37 weeks gestation of ] Onset: 04-03-2025 Episodic Residual codes; unclassified (1 source) 36 weeks gestation of ; Translations: [36 weeks gestation of ] Onset: 03-30-2025 Episodic Residual codes; unclassified (1 source) 31 weeks gestation of ; Translations: [31 weeks gestation of ] Onset: 02-24-2025 Episodic Residual codes; unclassified (1 source) 27 weeks gestation of ; Translations: [27 weeks gestation of ] Onset: 01-23-2025 Episodic Spondylosis; intervertebral disc disorders; other back problems (20 sources) Backache; Translations: [Dorsalgia, unspecified] Onset: 04-17-2025 Episodic Spontaneous (20 sources) with abortive outcome; Translations: [Complete or unspecified spontaneous without complication] 01-19-2023 Episodic Past or Other Problems Problem Classification Problem Date Documented Da te Episodic/Chronic Abdominal pain (20 sources) Right upper quadrant pain; Translations: [Right upper quadrant pain] Onset: 01-02-2025 04-01-2022 Episodic Other complications of (20 sources) Supervision of high risk , unspecified, unspecified trimester; Translations: [Supervision of unspecified high-risk ] Onset: 11-02-2024 02-19-2023 Episodic Other complications of (1 source) Diseases of the respiratory system complicating , second trimester; Translations: [Diseases of the respiratory system complicating , second trimester] Onset: 11-30-2024 Episodic Residual codes; unclassified (1 source) 15 weeks gestation of ; Translations: [15 weeks gestation of ] Onset: 11-02-2024 Episodic Unclassified (20 sources) choroid plexus cyst; Translations: [Choroid plexus cyst of fetus] 05-19-2023 NEGATED: Highlighted row has been ruled out!Unclassified (3 sources) No known active problems 11-18-2024 Results Test Name Value Interpretation Reference Range Facility Adult Basic Studies Teacher Office Visit Reporton 04-17-2025 Adult Basic Studies Teacher Office Visit Report [facility] [address], [address] [place] [address] OFFICE VISIT Date of Service: 04/17/25 MR#: [id number] Acct: [id number] Name: EDEL GALLOWAY Rep #: [id number] : 1995 Provider: Dr. Crissy viramontes MD Age/Sex: 30/F Location: [facility] Status: Signed Intake Vital Signs 02/06/25 11:11 04/13/25 10:04 04/17/25 09:43 04/17/25 09:45 Height 5 ft 4 in 5 ft 4 in 5 ft 4 in 5 ft 4 in Weight: 167 lb 1 oz BMI 28.6 BP 125/84 H Intake Visit Reasons: 39wk ob Biometrics Technician Required: No Is patient in pain?: No Allergies No Known Allergies Allergy (Verified 04/17/25 09:42) Medications ???Medication ???Instructions ???Recorded ???Confirmed ???Type multivitamin no.47-iron fum 27 cap PO 09/27/24 04/17/25 History mg-folate no.1 1 mg-dha 300 mg capsule (PNV-DHA) ondansetron 4 mg disintegrating 4 mg PO Q6H PRN nausea and 5 04/17/25 Rx tablet vomiting #30 tabs loratadine 10 mg tablet (Claritin) 10 mg PO QDAY 12/28/24 04/17/25 History Last Menstrual Period: 07/18/24 Zika: Zika virus screening: Negative : No PFSH PFSH Medical History Conjunctivitis, right eye Hx of abnormal cervical Pap smear Complete Spotting Heartburn Non-smoker Cholelithiases Frequent headaches Surgical History History of laparoscopic cholecystectomy ( 03/2022) Hx of wisdom tooth extraction Family History Mother Diabetes Hypertension Grandmother Heart disease Social History adopted: No household members: spouse and children number of children: 1 current occupational status: employed 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: Yes (bloodborne pathogens) pets and animals: Yes pets and animals: dog(s) history of recent travel: No ([place], [place]) sexually active: Yes Smoking Status: Never smoker alcohol intake: current alcohol intake frequency: a few times a month Alcohol type: beer and wine details: not while substance use type: does not use well-balanced diet: daily or most days caffeine: No eating out: 1-3 times/week during the past year weight has: increased > 10 lbs what type of physical activity do you participate in: walking frequency: 1-2 times per week duration: 15-30 minutes/day maynor/episcopal: None seatbelt use: always do you feel safe at home: Yes additional social history: - Dave History 3 Elective abortions Hx Para 1 Spontaneous abortions 1 Hx # Term Pregnancies Ectopic pregnancies Hx # Pregnancies Multiple births # of living children 1 Past Pregnancies Del. Date Name GA/Weeks Outcome Route Bth Weight Gen Labor Lgth Anesthesia Del Locatn Provider FOB 11/20/22 miscarriage @5-6 wks 09/24/23 Delainey 40 live - full term 7#9oz Female epidural [facility] Jonah Acosta Delivery Date: 09/24/23 Last Updated by: Macrina L Zaheer COVID, vanishing twin, 2nd degree laceration HPI 39wk ob Details: EDEL GALLOWAY is a 30 year old who presents for routine OB visit. OB Visit JOE Calculator Estimated Delivery Date Method Current WG Current Estimate 04/24/25 LMP (Certain) 39w 0d Other Estimates 04/25/25 Ultrasound #1 38w 6d Expected Delivery Route/Plan Labor Preferences- CB/BF classes: no labor support person: Dave labor intervention preferences: [] pain management options preferred: epidural cut cord/dad catch: YES : yes PP control planned: discussed possible routes of delivery and associated risks: [] special requests: [] Specific Issue/Plans Covid status: [] Flu vaccine: [] Tdap vaccine: given Rhogam: NA LARC form signed: yes Problem list reviewed and updated with the most current plan of care details and appropriate orders placed. Relevant counseling for the gestational age provided. Continue routine care and follow up unless otherwise noted in visit notes/problem list details Initial Weight: Not Recorded Date -???-???-???-???-???-? ??-???-???-???-???-??? -???- EGA Weight BP Urine Prot -???-???-???-???-???-? ??-???-???-???-???-??? -???- Glucose FHR FuHt Pres Dilation -???-???-???-???-???-? ??-???-???-???-???-??? -???- Effaced St Visit Note 10/05/24 -???-???-???-???-???-? ??-???-???-???-???-??? -???- 11w 2d 164 lb 120/75 -???-???-???-???-???-? ??-???-???-???-???-??? -???- 169 -???-???-???-???-???-? ??-???-???-???-???-??? -???- NATHAN CORLEY is c onsistent with LMP. She declines NIPT. wants to do anatomy scan in [place]. 0 (more content not included)... Normal [facility] Laboratory - Chemistry and C hemistry - challengeOrdered By: Farrah Restrepo on 04-13-2025 Glucose Ql (U) Negative [facility] Laboratory - UrinalysisOrder ed By: Farrah Restrepo on 04-13-2025 Protein Ql (U) Negative [facility] Adult Basic Studies Teacher Office Visit Reporton 04-13-2025 Adult Basic Studies Teacher Office Visit Report [facility] [address], [address] [place] [address] OFFICE VISIT Date of Service: 04/13/25 MR#: [id number] Acct: [id number] Name: EDEL GALLOWAY CHUY Rep #: [id number] : 1995 Provider: Dr. Farrah Rojas DO Age/Sex: 30/F Location: [facility] Status: Signed Intake Vital Signs 02/06/25 11:11 04/03/25 10:21 04/13/25 10:04 Height 5 ft 4 in 5 ft 4 in 5 ft 4 in Weight: 165 lb 2 oz 170 lb 5 oz BMI 28.3 29.2 BP 116/74 116/83 H Intake Visit Reasons: 38wk ob Biometrics Technician Required: No Is patient in pain?: No Allergies No Known Allergies Allergy (Verified 04/13/25 10:03) Medications ???Medication ???Instructions ???Recorded ???Confirmed ???Type multivitamin no.47-iron fum 27 cap PO 09/27/24 04/13/25 History mg-folate no.1 1 mg-dha 300 mg capsule (PNV-DHA) ondansetron 4 mg disintegrating 4 mg PO Q6H PRN nausea and 11/18/ 5 04/13/25 Rx tablet vomiting #30 tabs loratadine 10 mg tablet (Claritin) 10 mg PO QDAY 12/28/24 04/13/25 History Last Menstrual Period: 07/18/24 Zika: Zika virus screening: Negative : No PFSH PFSH Medical History Conjunctivitis, right eye Hx of abnormal cervical Pap smear Complete Spotting Heartburn Non-smoker Cholelithiases Frequent headaches Surgical History History of laparoscopic cholecystectomy ( 03/2022) Hx of wisdom tooth extraction Family History Mother Diabetes Hypertension Grandmother Heart disease Social History adopted: No household members: spouse and children number of children: 1 current occupational status: employed 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: Yes (bloodborne pathogens) pets and animals: Yes pets and animals: dog(s) history of recent travel: No ([place], [place]) sexually active: Yes Smoking Status: Never smoker alcohol intake: current alcohol intake frequency: a few times a month Alcohol type: beer and wine details: not while substance use type: does not use well-balanced diet: daily or most days caffeine: No eating out: 1-3 times/week during the past year weight has: increased > 10 lbs what type of physical activity do you participate in: walking frequency: 1-2 times per week duration: 15-30 minutes/day maynor/episcopal: None seatbelt use: always do you feel safe at home: Yes additional social history: - Dave History 3 Elective abortions Hx Para 1 Spontaneous abortions 1 Hx # Term Pregnancies Ectopic pregnancies Hx # Pregnancies Multiple births # of living children 1 Past Pregnancies Del. Date Name GA/Weeks Outcome Route Bth Weight Gen Labor Lgth Anesthesia Del Locatn Provider FOB 11/20/22 miscarriage @5-6 wks 09/24/23 Delainey 40 live - full term 7#9oz Female epidural [facility] Jonah Mackjuma Villatorot Delivery Date: 09/24/23 Last Updated by: Macrina Schwab COVID, vanishing twin, 2nd degree laceration HPI 38wk ob Details: EDEL GALLOWAY is a 30 year old who presents for routine OB visit. OB Visit JOE Calculator Estimated Delivery Date Method Current WG Current Estimate 04/24/25 LMP (Certain) 38w 3d Other Estimates 04/25/25 Ultrasound #1 38w 2d Expected Delivery Route/Plan Labor Preferences- CB/BF classes: no labor support person: Dave labor intervention preferences: [] pain management options preferred: epidural cut cord/dad catch: YES : yes PP control planned: discussed possible routes of delivery and associated risks: [] special requests: [] Specific Issue/Plans Covid status: [] Flu vaccine: [] Tdap vaccine: given Rhogam: NA LARC form signed: yes Problem list reviewed and updated with the most current plan of care details and appropriate orders placed. Relevant counseling for the gestational age provided. Continue routine care and follow up unless otherwise noted in visit notes/problem list details Initial Weight: Not Recorded Date -???-???-???-???-???-? ??-???-???-???-???-??? -???- EGA Weight BP Urine Prot -???-???-???-???-???-? ??-???-???-???-???-??? -???- Glucose FHR FuHt Pres Dilation -???-???-???-???-???-? ??-???-???-???-???-??? -???- Effaced St Visit Note 10/05/24 -???-???-???-???-???-? ??-???-???-???-???-??? -???- 11w 2d 164 lb 120/75 -???-???-???-???-???-? ??-???-???-???-???-??? -???- 169 -???-???-???-???-???-? ??-???-???-???-???-??? -???- JV- CRL is c onsistent with LMP. She declines NIPT. wants to do anatomy scan in [place] (more content not included)... Normal [facility] Laboratory - Chemistry and C hemistry - challengeOrdered By: Corina Daniel on 04-03-2025 Glucose Ql (U) Negative [facility] Laboratory - UrinalysisOrder ed By: Corina Daniel on 04-03-2025 Protein Ql (U) Negative [facility] Adult Basic Studies Teacher Office Visit Reporton 04-03-2025 Adult Basic Studies Teacher Office Visit Report [facility] [address], [address] [place] [address] OFFICE VISIT Date of Service: 04/03/25 MR#: [id number] Acct: [id number] Name: EDEL GALLOWAY Rep #: [id number] : 1995 Provider: BRAYAN Jj ams Age/Sex: 30/F Location: [facility] Status: Signed Intake Vital Signs 02/06/25 11:11 03/30/25 14:46 04/03/25 10:21 Height 5 ft 4 in 5 ft 4 in 5 ft 4 in Weight: 165 lb 2 oz BMI 28.3 BP 116/74 Intake Visit Reasons: 37wk ob Chief Complaint: 37wk ob Biometrics Technician Required: No Is patient in pain?: No Allergies No Known Allergies Allergy (Verified 04/03/25 10:18) Medications ???Medication ???Instructions ???Recorded ???Confirmed ???Type multivitamin no.47-iron fum 27 cap PO 09/27/24 04/03/25 History mg-folate no.1 1 mg-dha 300 mg capsule (PNV-DHA) ondansetron 4 mg disintegrating 4 mg PO Q6H PRN nausea and 5 04/03/25 Rx tablet vomiting #30 tabs loratadine 10 mg tablet (Claritin) 10 mg PO QDAY 12/28/24 04/03/25 History Last Menstrual Period: 07/18/24 : No PFSH PFSH Medical History Conjunctivitis, right eye Hx of abnormal cervical Pap smear Complete Spotting Heartburn Non-smoker Cholelithiases Frequent headaches Surgical History History of laparoscopic cholecystectomy ( 03/2022) Hx of wisdom tooth extraction Family History Mother Diabetes Hypertension Grandmother Heart disease Social History adopted: No household members: spouse and children number of children: 1 current occupational status: employed 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: Yes (bloodborne pathogens) pets and animals: Yes pets and animals: dog(s) history of recent travel: No ([place], [place]) sexually active: Yes Smoking Status: Never smoker alcohol intake: current alcohol intake frequency: a few times a month Alcohol type: beer and wine details: not while substance use type: does not use well-balanced diet: daily or most days caffeine: No eating out: 1-3 times/week during the past year weight has: increased > 10 lbs what type of physical activity do you participate in: walking frequency: 1-2 times per week duration: 15-30 minutes/day maynor/episcopal: None seatbelt use: always do you feel safe at home: Yes additional social history: - Dave History 3 Elective abortions Hx Para 1 Spontaneous abortions 1 Hx # Term Pregnancies Ectopic pregnancies Hx # Pregnancies Multiple births # of living children 1 Past Pregnancies Del. Date Name GA/Weeks Outcome Route Bth Weight Infant Gen Labor Lgth Anesthesia Del Locatn Provider FOB 11/20/22 miscarriage @5-6 wks 09/24/23 Miroslava 40 live - full term 7#9oz Female epidural [facility] Jonah Acosta Delivery Date: 09/24/23 Last Updated by: Macrina Schwab COVID, vanishing twin, 2nd degree laceration HPI 37wk ob Details: EDEL GALLOWAY is a 30 year old who presents for routine OB visit. OB Visit JOE Calculator Estimated Delivery Date Method Current WG Current Estimate 04/24/25 LMP (Certain) 37w 0d Other Estimates 04/25/25 Ultrasound #1 36w 6d Expected Delivery Route/Plan Labor Preferences- CB/BF classes: no labor support person: Dave labor intervention preferences: [] pain management options preferred: epidural cut cord/dad catch: YES : yes PP control planned: discussed possible routes of delivery and associated risks: [] special requests: [] Specific Issue/Plans Covid status: [] Flu vaccine: [] Tdap vaccine: given Rhogam: NA LARC form signed: yes Problem list reviewed and updated with the most current plan of care details and appropriate orders placed. Relevant counseling for the gestational age provided. Continue routine care and follow up unless otherwise noted in visit notes/problem list details Initial Weight: Not Recorded Date -???-???-???-???-???-? ??-???-???-???-???-??? -???- EGA Weight BP Urine Prot -???-???-???-???-???-? ??-???-???-???-???-??? -???- Glucose FHR FuHt Pres Dilation -???-???-???-???-???-? ??-???-???-???-???-??? -???- Effaced St Visit Note 10/05/24 -???-???-???-???-???-? ??-???-???-???-???-??? -???- 11w 2d 164 lb 120/75 -???-???-???-???-???-? ??-???-???-???-???-??? -???- 169 -???-???-???-???-???-? ??-???-???-???-???-??? -???- JV- CRL is c onsistent with LMP. She declines NIPT. wants to do anatomy scan in [place]. 11/02/24 -???-???-???-???-???-? ??-???-???-???-???-??? -???- (more content not included)... Normal [facility] Rule out Beta Strep (Grp. B) on 2025 [place] Group B Beta Streptococcus is not isolated. Normal [facility] Comment on above: Performed By: #### M [id number] ####[facility] [id number] [place], [address] Laboratory - Chemistry and C hemistry - challengeOrdered By: Corina Daniel on 03-30-2025 Glucose Ql (U) Negative [facility] Laboratory - UrinalysisOrder ed By: Corina Daniel on 03-30-2025 Protein Ql (U) Negative [facility] Adult Basic Studies Teacher Office Visit Reporton 03-30-2025 Adult Basic Studies Teacher Office Visit Report [facility], [address] [place] [address] OFFICE VISIT Date of Service: 03/30/25 MR#: [id number] Acct: [id number] Name: EDEL GALLOWAY Rep #: [id number] : 1995 Provider: BRAYAN Jj ams Age/Sex: 29/F Location: [facility] Status: Signed Intake Vital Signs 03/26/25 08:56 03/30/25 14:46 Height 5 ft 4 in 5 ft 4 in Weight: 162 lb 4 oz 165 lb 4 oz BMI 27.8 28.3 BP 100/62 100/68 Blood Pressure Location Lt brachial Position Sitting Respiration 16 Pulse 88 Pulse Source Monitor Temp 97.7 F L Pulse Oximetry (%) 96 Oxygen Delivery Method room air Intake Visit Reasons: 36wk ob Chief Complaint: 36wk ob Biometrics Technician Required: No Is patient in pain?: No Allergies No Known Allergies Allergy (Verified 03/30/25 14:45) Medications ???Medication ???Instructions ???Recorded ???Confirmed ???Type multivitamin no.47-iron fum 27 cap PO 09/27/24 03/30/25 History mg-folate no.1 1 mg-dha 300 mg capsule (PNV-DHA) ondansetron 4 mg disintegrating 4 mg PO Q6H PRN nausea and 5 03/30/25 Rx tablet vomiting #30 tabs loratadine 10 mg tablet (Claritin) 10 mg PO QDAY 12/28/24 03/30/25 History amoxicillin 875 mg-potassium 1 tab PO BID 7 days #14 tabs 03/2603/30/25 Rx clavulanate 125 mg tablet Last Menstrual Period: 07/18/24 : No PFSH PFSH Medical History Conjunctivitis, right eye Hx of abnormal cervical Pap smear Complete Spotting Heartburn Non-smoker Cholelithiases Frequent headaches Surgical History History of laparoscopic cholecystectomy ( 03/2022) Hx of wisdom tooth extraction Family History Mother Diabetes Hypertension Grandmother Heart disease Social History adopted: No household members: spouse and children number of children: 1 current occupational status: employed 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: Yes (bloodborne pathogens) pets and animals: Yes pets and animals: dog(s) history of recent travel: No ([place], [place]) sexually active: Yes Smoking Status: Never smoker alcohol intake: current alcohol intake frequency: a few times a month Alcohol type: beer and wine details: not while substance use type: does not use well-balanced diet: daily or most days caffeine: No eating out: 1-3 times/week during the past year weight has: increased > 10 lbs what type of physical activity do you participate in: walking frequency: 1-2 times per week duration: 15-30 minutes/day maynor/episcopal: None seatbelt use: always do you feel safe at home: Yes additional social history: - Dave History 3 Elective abortions Hx Para 1 Spontaneous abortions 1 Hx # Term Pregnancies Ectopic pregnancies Hx # Pregnancies Multiple births # of living children 1 Past Pregnancies Del. Date Name GA/Weeks Outcome Route Bth Weight Gen Labor Lgth Anesthesia Del Locatn Provider FOB 11/20/22 miscarriage @5-6 wks 09/24/23 Delainey 40 live - full term 7#9oz Female epidural [facility] Jonah acosta Adrianna Villatorot Delivery Date: 09/24/23 Last Updated by: Macrina Schwab COVID, vanishing twin, 2nd degree laceration HPI 36wk ob Details: EDEL GALLOWAY is a 29 year old who presents for routine OB visit. OB Visit JOE Calculator Estimated Delivery Date Method Current WG Current Estimate 04/24/25 LMP (Certain) 36w 3d Other Estimates 04/25/25 Ultrasound #1 36w 2d Expected Delivery Route/Plan Labor Preferences- CB/BF classes: no labor support person: Dave labor intervention preferences: [] pain management options preferred: epidural cut cord/dad catch: YES : yes PP control planned: discussed possible routes of delivery and associated risks: [] special requests: [] Specific Issue/Plans Covid status: [] Flu vaccine: [] Tdap vaccine: given Rhogam: NA LARC form signed: yes Problem list reviewed and updated with the most current plan of care details and appropriate orders placed. Relevant counseling for the gestational age provided. Continue routine care and follow up unless otherwise noted in visit notes/problem list details Initial Weight: Not Recorded Date -???-???-???-???-???-? ??-???-???-???-???-??? -???- EGA Weight BP Urine Prot -???-???-???-???-???-? ??-???-???-???-???-??? -???- Glucose FHR FuHt Pres Dilation -???-???-???-???-???-? ??-???-???-???-???-??? -???- Effaced St Visit Note 10/05/24 -???-???-???-???-???-? ??-???-? (more content not included)... Normal [facility] Screening beta-hemolytic Str eptococcus cultureOrdered By: Corina Daniel on 03-30-2025 Beta-hemolytic Streptococcus culture Group B Beta Streptococcus is not isolated. [facility] Urgent Care Visit Reporton 0 03-26-2025 Urgent Care Visit Report [facility] [address], [address] [place], [place] [address] OFFICE VISIT Date of Service: 03/26/25 MR#: [id number] Acct: [id number] Name: EDEL GALLOWAY Rep #: [id number] : 1995 Provider: [facility] Self Schedule Age/Sex: 29/F Location: [facility] Status: Signed Intake Vital Signs 03/20/25 09:36 03/26/25 08:56 Height 5 ft 4 in 5 ft 4 in Weight: 162 lb 2 oz 162 lb 4 oz BMI 27.8 27.8 BP 98/64 100/62 Blood Pressure Location Lt brachial Position Sitting Respiration 16 Pulse 88 Pulse Source Monitor Temp 97.7 F L Temp Source Temporal Pulse Oximetry (%) 96 Oxygen Delivery Method room air Intake Visit Reasons: CONGESTION Chief Complaint: Congestion Is patient in pain?: No Allergies No Known Allergies Allergy (Verified 03/26/25 08:54) Medications ???Medication ???Instructions ???Recorded ???Confirmed ???Type multivitamin no.47-iron fum 27 cap PO 09/27/24 03/26/25 History mg-folate no.1 1 mg-dha 300 mg capsule (PNV-DHA) ondansetron 4 mg disintegrating 4 mg PO Q6H PRN nausea and 5 03/26/25 Rx tablet vomiting #30 tabs loratadine 10 mg tablet (Claritin) 10 mg PO QDAY 12/28/24 03/26/25 History amoxicillin 875 mg-potassium 1 tab PO BID 7 days #14 tabs 03/2603/26/25 Rx clavulanate 125 mg tablet Patient : Yes PFSH Medical History Conjunctivitis, right eye Hx of abnormal cervical Pap smear Complete Spotting Heartburn Non-smoker Cholelithiases Frequent headaches Surgical History History of laparoscopic cholecystectomy ( 03/2022) Hx of wisdom tooth extraction Family History Mother Diabetes Hypertension Grandmother Heart disease Social History adopted: No household members: spouse and children number of children: 1 current occupational status: employed 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: Yes (bloodborne pathogens) pets and animals: Yes pets and animals: dog(s) history of recent travel: No ([place], [place]) sexually active: Yes Smoking Status: Never smoker alcohol intake: current alcohol intake frequency: a few times a month Alcohol type: beer and wine details: not while substance use type: does not use well-balanced diet: daily or most days caffeine: No eating out: 1-3 times/week during the past year weight has: increased > 10 lbs what type of physical activity do you participate in: walking frequency: 1-2 times per week duration: 15-30 minutes/day maynor/episcopal: None seatbelt use: always do you feel safe at home: Yes additional social history: - Dave Female Reproductive History Menstrual Ab spontaneous: 1 HPI HPI Chief Complaint: Congestion Details: EDEL GALLOWAY, is a 29 F who presents to the office today for concerns regarding ongoing congestion and productive cough. She does acknowledge left ear pressure and headache. This has been ongoing since March 14, 2025. She is currently 36 weeks . This has been intermittent. She thought she was improving and did not discuss with other providers. However, she feels that her symptoms are lingering longer than expected. She does present today for evaluation. She has been taking Sudafed and Robitussin. She has not taken any Tylenol. Prior to evaluation, Augmentin was reviewed and was safe to use during and breast-feeding. Zithromax/azithromycin also reviewed and may be safe to use during and breast-feeding. ROS Const Constitutional: Positive for body ache, chills, fatigue and headache(s); No fever(s) or change in appetite Eyes Eyes: No blurry vision, change in vision, double vision, irritation, discharge, vision loss, dry eyes, bulging eyes, floaters, visual disturbances, eye pain, Light sensitivity, spots in vision, tunnel vision or other ENT ENT: Positive for ear pressure, nasal congestion, sinus pain, nasal discharge, post nasal drip and headache(s); No ear or mastoid pain, ear discharge, tinnitus, dizziness/vertigo, nosebleed/epistaxis, nose pain, sinus pressure, facial pain, dental pain, difficulty swallowing, bad breath, hoarseness, lip swelling, mouth lesions, mouth pain, neck pain, sore throat, tongue swelling or throat swelling Resp Respiratory: Positive for cough (sometimes barky) Cough: Yes productive, change in phlegm color (Yellow, green) and shortness of breath (Associated with ); No chest congestion, hemoptysis, pain on inspiration, pain with cough, stridor or wheezing Cardio Cardiology: No chest pain at rest, chest pain with exertion, sh (more content not included)... Normal [facility] Absolute lymphocyte countOrd ered By: Farrah Restrepo on 03-20-2025 Lymphocytes Auto (Unsp spec) [#/Vol] 1.72 10*3/uL 0.83-4.[address] [facility] Absolute neutrophil countOrd ered By: Farrah Restrepo on 03-20-2025 Neutrophils (Bld) [#/Vol] 6.3 10*3/uL 2.0-7.[address] [facility] Automated lymphocyte count a s percentage of total leukocytesOrdered By: Farrah Restrepo on 03-20-2025 Lymphocytes/100 WBC Auto (Unsp spec) 19.3 % 19-[address] [facility] Basophil percentageOrdered B y: Farrah Restrepo on 03-20-2025 Basophils/100 WBC (Bld) 0.4 % 0-1 [facility] CBC W/Diff, Automatedon 03-07 Absolute Lymph 1.72 X10 3/uL Normal 0.83-4.[address] [facility] Comment on above: Performed By: #### L 100.0100 ####[facility] [address] [place], [place], [id number]) Absolute Neut 6.3 X10 3/uL Normal 2.0-7.[address] [facility] Comment on above: Performed By: #### L 100.0100 ####[facility] [address] [place], [address] Basophils/100 WBC (Bld) 0.4 % Normal 0-1 [facility] Comment on above: Performed By: #### L 100.0100 ####[facility] [address] [place], [address] Eosinophils/100 WBC (Bld) 1.9 % Normal 0-[address] [facility] Comment on above: Performed By: #### L 100.0100 ####[facility] [address] [place], [address] Erythrocyte distribution width (RBC) [Ratio] 13.1 % Normal 11.6-14.[address] [facility] Comment on above: Performed By: #### L 100.0100 ####[facility] [address] [place], [address] Hematocrit (Bld) [Volume fraction] 31.2 % Low 37-[address] [facility] Comment on above: Performed By: #### L 100.0100 ####[facility] [address] [place], [address] Hemoglobin (Bld) [Mass/Vol] 10.1 g/dL Low 12.0-15.[address] [facility] Comment on above: Performed By: #### L 100.0100 ####[facility] [address] [place], [address] IG% 0.700 Normal 0.0-0.[address] [facility] Comment on above: Result Comment: IG% - Immature Granulocytes (promyelocytes, myelocytes and metamyelocytes) > 1% indicates that a LEFT SHIFT is Present. Performed By: #### L 100.0100 ####[facility] [address] [place], [address] Lymphocytes/100 WBC (Bld) 19.3 % Normal 19-[address] [facility] Comment on above: Performed By: #### L 100.0100 ####[facility] [address] [place], [address] MCH (RBC) [Entitic mass] 27.4 pg Normal 27.0-32.[address] [facility] Comment on above: Performed By: #### L 100.0100 ####[facility] [address] [place], [address] MCHC (RBC) [Mass/Vol] 32.4 g/dL Normal 32-36 [facility] Comment on above: Performed By: #### L 100.0100 ####[facility] [address] [place], [address] MCV (RBC) [Entitic vol] 84.8 fL Normal 81-99 [facility] Comment on above: Performed By: #### L 100.0100 ####[facility] [address] [place], [address] Monocytes/100 WBC (Bld) 7.4 % Normal 0-10 [facility] Comment on above: Performed By: #### L 100.0100 ####[facility] [address] [place], [address] Neutrophils/100 WBC (Bld) 70.3 % High 47-[address] [facility] Comment on above: Performed By: #### L 100.0100 ####[facility] [address] [place], [address] Nucleated RBC (Bld) [#/Vol] 0 10*3/uL Normal 0-[address] [facility] Comment on above: Performed By: #### L 100.0100 ####[facility] [address] [place], [address] Platelet mean volume (Bld) [Entitic vol] 11.9 fL Normal 6.2-12.[address] [facility] Comment on above: Performed By: #### L 100.0100 ####[facility] [address] [place], [address] Platelets (Bld) [#/Vol] 199 10*3/uL Normal 150-[address] [facility] Comment on above: Performed By: #### L 100.0100 ####[facility] [address] [place], [address] RBC (Bld) [#/Vol] 3.68 10*6/uL Low 4.2-5.4 [facility] Comment on above: Performed By: #### L 100.0100 ####[facility] [address] [place], [address] RDW SD 40.3 fl Normal 35.1-43.[address] [facility] Comment on above: Performed By: #### L 100.0100 ####[facility] [address] [place], [address] WBC (Bld) [#/Vol] 8.9 10*3/uL Normal 4.4-11.0 [facility] Comment on above: Performed By: #### L 100.0100 ####[facility] [address] [place], [address] Eosinophil percentageOrdered By: Farrah Restrepo on 03-20-2025 Eosinophils/100 WBC (Bld) 1.9 % 0-[address] [facility] Erythrocyte distribution wid th ratioOrdered By: Farrah Restrepo on 03-20-2025 Erythrocyte distribution width (RBC) [Ratio] 13.1 % 11.6-14.[address] [facility] Erythrocyte distribution wid th standard deviationOrdered By: Farrah Restrepo on 03-20-2025 Erythrocyte distribution width (RBC) [Ratio] 40.3 fl 35.1-43.[address] [facility] Hematocrit Auto (Bld) [Volum e fraction]Ordered By: Farrah Restrepo on 03-20-2025 Hematocrit (Bld) [Volume fraction] 31.2 % Low 37-[address] [facility] Hemoglobin measurementOrdere d By: Farrah Restrepo on 03-20-2025 Hemoglobin (Bld) [Mass/Vol] 10.1 g/dL Low 12.0-15.[address] [facility] Immature granulocytes/100 WB C Auto (Bld)Ordered By: Farrah Restrepo on 03-20-2025 Immature granulocytes/100 WBC (Bld) 0.700 % 0.0-0.[address] [facility] Comment on above: IG% - Immature Granu locytes (promyelocytes, myelocytes and metamyelocytes) > 1% indicates that a LEFT SHIFT is Present. Laboratory - Chemistry and C hemistry - challengeOrdered By: Ida Ye on 03-20-2025 Glucose Ql (U) Negative [facility] Laboratory - UrinalysisOrder ed By: Ida Ye on 03-20-2025 Protein Ql (U) Negative [facility] MCV (mean corpuscular volume ) determinationOrdered By: Farrah Restrepo on 03-20-2025 MCV (RBC) [Entitic vol] 84.8 fL 81-99 [facility] Mean corpuscular hemoglobin (MCH) determinationOrdered By: Farrah Restrepo on 03-20-2025 MCH (RBC) [Entitic mass] 27.4 pg 27.0-32.[address] [facility] Mean corpuscular hemoglobin concentration (MCHC) determinationOrdered By: Farrah Restrepo on 03-20-2025 MCHC (RBC) [Mass/Vol] 32.4 g/dL 32-36 [facility] Mean platelet volume determi nationOrdered By: Farrah Restrepo on 03-20-2025 Platelet mean volume (Bld) [Entitic vol] 11.9 fL 6.2-12.[address] [facility] Monocyte percentageOrdered B y: Farrah Restrepo on 03-20-2025 Monocytes/100 WBC (Bld) 7.4 % 0-10 [facility] Neutrophil percentageOrdered By: Farrah Restrepo on 03-20-2025 Neutrophils/100 WBC (Bld) 70.3 % High 47-[address] [facility] Nucleated red blood cell per centageOrdered By: Farrah Restrepo on 03-20-2025 Nucleated RBC/100 WBC (Bld) [Ratio] 0 % 0-5 [facility] Adult Basic Studies Teacher Office Visit Reporton 03-20-2025 Adult Basic Studies Teacher Office Visit Report [facility] [address], [address] [place] [address] OFFICE VISIT Date of Service: 03/20/25 MR#: [id number] Acct: [id number] Name: EDEL GALLOWAY Rep #: [id number] : 1995 Provider: SABINE casper Age/Sex: 29/F Location: [facility] Status: Signed Intake Vital Signs 01/23/25 10:17 03/08/25 10:30 03/20/25 09:36 Height 5 ft 4 in 5 ft 4 in 5 ft 4 in Weight: 162 lb 2 oz BMI 27.8 BP 98/64 Intake Visit Reasons: 35wk ob Chief Complaint: 35 Week OB Biometrics Technician Required: No Is patient in pain?: No Allergies No Known Allergies Allergy (Verified 03/20/25 09:38) Medications ???Medication ???Instructions ???Recorded ???Confirmed ???Type multivitamin no.47-iron fum 27 cap PO 09/27/24 03/20/25 History mg-folate no.1 1 mg-dha 300 mg capsule (PNV-DHA) metoclopramide HCl 10 mg tablet 10 mg PO Q6H PRN nausea and 03/20/25 Rx vomiting #14 tabs ondansetron 4 mg disintegrating 4 mg PO Q6H PRN nausea and 5 03/20/25 Rx tablet vomiting #30 tabs loratadine 10 mg tablet (Claritin) 10 mg PO QDAY 12/28/24 03/20/25 History Last Menstrual Period: 07/18/24 Zika: Zika virus screening: Negative : No PFSH PFSH Medical History Conjunctivitis, right eye Hx of abnormal cervical Pap smear Complete Spotting Heartburn Non-smoker Cholelithiases Frequent headaches Surgical History History of laparoscopic cholecystectomy ( 03/2022) Hx of wisdom tooth extraction Family History Mother Diabetes Hypertension Grandmother Heart disease Social History adopted: No household members: spouse and children number of children: 1 current occupational status: employed 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: Yes (bloodborne pathogens) pets and animals: Yes pets and animals: dog(s) history of recent travel: No ([place], [place]) sexually active: Yes Smoking Status: Never smoker alcohol intake: current alcohol intake frequency: a few times a month Alcohol type: beer and wine details: not while substance use type: does not use well-balanced diet: daily or most days caffeine: No eating out: 1-3 times/week during the past year weight has: increased > 10 lbs what type of physical activity do you participate in: walking frequency: 1-2 times per week duration: 15-30 minutes/day maynor/episcopal: None seatbelt use: always do you feel safe at home: Yes additional social history: - Dave History 3 Elective abortions Hx Para 1 Spontaneous abortions 1 Hx # Term Pregnancies Ectopic pregnancies Hx # Pregnancies Multiple births # of living children 1 Past Pregnancies Del. Date Name GA/Weeks Outcome Route Bth Weight Gen Labor Lgth Anesthesia Del Locatn Provider FOB 11/20/22 miscarriage @5-6 wks 09/24/23 Delainey 40 live - full term 7#9oz Female epidural [facility] Jonah Acosta Delivery Date: 09/24/23 Last Updated by: Macrina Schwab COVID, vanishing twin, 2nd degree laceration HPI 35wk ob Details: EDEL GALLOWAY is a 29 year old who presents for routine OB visit. OB Visit JOE Calculator Estimated Delivery Date Method Current WG Current Estimate 04/24/25 LMP (Certain) 35w 0d Other Estimates 04/25/25 Ultrasound #1 34w 6d Expected Delivery Route/Plan Labor Preferences- CB/BF classes: no labor support person: Dave labor intervention preferences: [] pain management options preferred: epidural cut cord/dad catch: YES : yes PP control planned: discussed possible routes of delivery and associated risks: [] special requests: [] Specific Issue/Plans Covid status: [] Flu vaccine: [] Tdap vaccine: given Rhogam: NA LARC form signed: yes Problem list reviewed and updated with the most current plan of care details and appropriate orders placed. Relevant counseling for the gestational age provided. Continue routine care and follow up unless otherwise noted in visit notes/problem list details Initial Weight: Not Recorded Date -???-???-???-???-???-? ??-???-???-???-???-??? -???- EGA Weight BP Urine Prot -???-???-???-???-???-? ??-???-???-???-???-??? -???- Glucose FHR FuHt Pres Dilation -???-???-???-???-???-? ??-???-???-???-???-??? -???- Effaced St Visit Note 10/05/24 -???-???-???-???-???-? ??-???-???-???-???-??? -???- 11w 2d 164 lb 120/75 -???-???-???-???-???-? ??-???-???-???-???-??? -???- 169 -???-???-???-???-???-? ??-???-??? (more content not included)... Normal [facility] Platelet countOrdered By: Seb Restrepo on 03-20-2025 Platelets (Bld) [#/Vol] 199 10*3/uL 150-[address] [facility] RBC Auto (Bld) [#/Vol]Ordere d By: Farrah Restrepo on 03-20-2025 RBC (Bld) [#/Vol] 3.68 10*6/uL Low 4.2-5.4 [facility] White blood cell (WBC) count Ordered By: Farrah Restrepo on 03-20-2025 WBC (Bld) [#/Vol] 8.9 10*3/uL 4.4-11.0 [facility] Laboratory - Chemistry and C hemistry - challengeOrdered By: Farrah Restrepo on 03-08-2025 Glucose Ql (U) 100 g/dL [facility] Laboratory - UrinalysisOrder ed By: Farrah Restrepo on 03-08-2025 Protein Ql (U) Trace [facility] Adult Basic Studies Teacher Office Visit Reporton 03-08-2025 Adult Basic Studies Teacher Office Visit Report [facility] [address], [address] [place] [address] OFFICE VISIT Date of Service: 03/08/25 MR#: [id number] Acct: [id number] Name: EDEL GALLOWAY Rep #: [id number] : 1995 Provider: Dr. Farrah Rojas DO Age/Sex: 29/F Location: [facility] Status: Signed Intake Vital Signs 01/23/25 10:17 02/24/25 11:08 03/08/25 10:26 03/08/25 10:30 Height 5 ft 4 in 5 ft 4 in 5 ft 4 in 5 ft 4 in Weight: 162 lb BMI 27.8 BP 97/66 Intake Visit Reasons: 33wk ob Biometrics Technician Required: No Is patient in pain?: No Allergies No Known Allergies Allergy (Verified 03/08/25 10:25) Medications ???Medication ???Instructions ???Recorded ???Confirmed ???Type multivitamin no.47-iron fum 27 cap PO 09/27/24 03/08/25 History mg-folate no.1 1 mg-dha 300 mg capsule (PNV-DHA) metoclopramide HCl 10 mg tablet 10 mg PO Q6H PRN nausea and 03/08/25 Rx vomiting #14 tabs ondansetron 4 mg disintegrating 4 mg PO Q6H PRN nausea and 5 03/08/25 Rx tablet vomiting #30 tabs loratadine 10 mg tablet (Claritin) 10 mg PO QDAY 12/28/24 03/08/25 History Last Menstrual Period: 07/18/24 Zika: Zika virus screening: Negative : No PFSH PFSH Medical History Conjunctivitis, right eye Hx of abnormal cervical Pap smear Complete Spotting Heartburn Non-smoker Cholelithiases Frequent headaches Surgical History History of laparoscopic cholecystectomy ( 03/2022) Hx of wisdom tooth extraction Family History Mother Diabetes Hypertension Grandmother Heart disease Social History adopted: No household members: spouse and children number of children: 1 current occupational status: employed 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: Yes (bloodborne pathogens) pets and animals: Yes pets and animals: dog(s) history of recent travel: No ([place], [place]) sexually active: Yes Smoking Status: Never smoker alcohol intake: current alcohol intake frequency: a few times a month Alcohol type: beer and wine details: not while substance use type: does not use well-balanced diet: daily or most days caffeine: No eating out: 1-3 times/week during the past year weight has: increased > 10 lbs what type of physical activity do you participate in: walking frequency: 1-2 times per week duration: 15-30 minutes/day maynor/episcopal: None seatbelt use: always do you feel safe at home: Yes additional social history: - Dave History 3 Elective abortions Hx Para 1 Spontaneous abortions 1 Hx # Term Pregnancies Ectopic pregnancies Hx # Pregnancies Multiple births # of living children 1 Past Pregnancies Del. Date Name GA/Weeks Outcome Route Bth Weight Gen Labor Lgth Anesthesia Del Locatn Provider FOB 11/20/22 miscarriage @5-6 wks 09/24/23 Delainey 40 live - full term 7#9oz Female epidural [facility] Jonah Acosta Delivery Date: 09/24/23 Last Updated by: Macrina Schwab COVID, vanishing twin, 2nd degree laceration HPI 33wk ob Details: EDEL GALLOWAY is a 29 year old who presents for routine OB visit. OB Visit JOE Calculator Estimated Delivery Date Method Current WG Current Estimate 04/24/25 LMP (Certain) 33w 2d Other Estimates 04/25/25 Ultrasound #1 33w 1d Expected Delivery Route/Plan Labor Preferences- CB/BF classes: [] labor support person: [] labor intervention preferences: [] pain management options preferred: [] cut cord/dad catch: [] : [] PP control planned: [] discussed possible routes of delivery and associated risks: [] special requests: [] Specific Issue/Plans Covid status: [] Flu vaccine: [] Tdap vaccine: [] Rhogam: [] LARC form signed: [] Problem list reviewed and updated with the most current plan of care details and appropriate orders placed. Relevant counseling for the gestational age provided. Continue routine care and follow up unless otherwise noted in visit notes/problem list details Initial Weight: Not Recorded Date -???-???-???-???-???-? ??-???-???-???-???-??? -???- EGA Weight BP Urine Prot -???-???-???-???-???-? ??-???-???-???-???-??? -???- Glucose FHR FuHt Pres Dilation -???-???-???-???-???-? ??-???-???-???-???-??? -???- Effaced St Visit Note 10/05/24 -???-???-???-???-???-? ??-???-???-???-???-??? -???- 11w 2d 164 lb 120/75 -???-???-???-???-???-? ??-???-???-???-???-??? -???- 169 -???-???-???-???-???-? ??-???-???-???-???-??? -???- (more content not included)... Normal [facility] Laboratory - Chemistry and C hemistry - challengeOrdered By: Crissy Rodas on 02-24-2025 Glucose Ql (U) Negative [facility] Laboratory - UrinalysisOrder ed By: Crissy Rodas on 02-24-2025 Protein Ql (U) Negative [facility] Adult Basic Studies Teacher Office Visit Reporton 02-24-2025 Adult Basic Studies Teacher Office Visit Report [facility] [address], [address] [place] [address] OFFICE VISIT Date of Service: 02/24/25 MR#: [id number] Acct: [id number] Name: EDEL GALLOWAY Rep #: [id number] : 1995 Provider: Dr. Crissy viramontes MD Age/Sex: 29/F Location: [facility] Status: Signed Intake Vital Signs 01/23/25 10:17 02/06/25 11:11 02/24/25 11:08 Height 5 ft 4 in 5 ft 4 in 5 ft 4 in Weight: 164 lb BMI 28.1 BP 126/79 H Intake Visit Reasons: 31wk ob Biometrics Technician Required: No Is patient in pain?: No Feel stressed/tense/nervous /anxious/difficulty sleeping: not at all Allergies No Known Allergies Allergy (Verified 02/24/25 11:09) Medications ???Medication ???Instructions ???Recorded ???Confirmed ???Type multivitamin no.47-iron fum 27 cap PO 09/27/24 02/24/25 History mg-folate no.1 1 mg-dha 300 mg capsule (PNV-DHA) metoclopramide HCl 10 mg tablet 10 mg PO Q6H PRN nausea and 02/24/25 Rx vomiting #14 tabs ondansetron 4 mg disintegrating 4 mg PO Q6H PRN nausea and 5 02/24/25 Rx tablet vomiting #30 tabs loratadine 10 mg tablet (Claritin) 10 mg PO QDAY 12/28/24 02/24/25 History Last Menstrual Period: 07/18/24 Zika: Zika virus screening: Negative : No PFSH PFSH Medical History Conjunctivitis, right eye Hx of abnormal cervical Pap smear Complete Spotting Heartburn Non-smoker Cholelithiases Frequent headaches Surgical History History of laparoscopic cholecystectomy ( 03/2022) Hx of wisdom tooth extraction Family History Mother Diabetes Hypertension Grandmother Heart disease Social History adopted: No household members: spouse and children number of children: 1 current occupational status: employed 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: Yes (bloodborne pathogens) pets and animals: Yes pets and animals: dog(s) history of recent travel: No ([place], [place]) sexually active: Yes Smoking Status: Never smoker alcohol intake: current alcohol intake frequency: a few times a month Alcohol type: beer and wine details: not while substance use type: does not use well-balanced diet: daily or most days caffeine: No eating out: 1-3 times/week during the past year weight has: increased > 10 lbs what type of physical activity do you participate in: walking frequency: 1-2 times per week duration: 15-30 minutes/day maynor/episcopal: None seatbelt use: always do you feel safe at home: Yes additional social history: - Dave History 3 Elective abortions Hx Para 1 Spontaneous abortions 1 Hx # Term Pregnancies Ectopic pregnancies Hx # Pregnancies Multiple births # of living children 1 Past Pregnancies Del. Date Name GA/Weeks Outcome Route Bth Weight Gen Labor Lgth Anesthesia Del Locatn Provider FOB 11/20/22 miscarriage @5-6 wks 09/24/23 Delainey 40 live - full term 7#9oz Female epidural [facility] Jonah Acosta Delivery Date: 09/24/23 Last Updated by: Macrina TEJADA, vanishing twin, 2nd degree laceration HPI 31wk ob Details: EDEL GALLOWAY is a 29 year old who presents for routine OB visit. OB Visit JOE Calculator Estimated Delivery Date Method Current WG Current Estimate 04/24/25 LMP (Certain) 31w 4d Other Estimates 04/25/25 Ultrasound #1 31w 3d Expected Delivery Route/Plan Labor Preferences- CB/BF classes: [] labor support person: [] labor intervention preferences: [] pain management options preferred: [] cut cord/dad catch: [] : [] PP control planned: [] discussed possible routes of delivery and associated risks: [] special requests: [] Specific Issue/Plans Covid status: [] Flu vaccine: [] Tdap vaccine: [] Rhogam: [] LARC form signed: [] Problem list reviewed and updated with the most current plan of care details and appropriate orders placed. Relevant counseling for the gestational age provided. Continue routine care and follow up unless otherwise noted in visit notes/problem list details Initial Weight: Not Recorded Date -???-???-???-???-???-? ??-???-???-???-???-??? -???- EGA Weight BP Urine Prot -???-???-???-???-???-? ??-???-???-???-???-??? -???- Glucose FHR FuHt Pres Dilation -???-???-???-???-???-? ??-???-???-???-???-??? -???- Effaced St Visit Note 10/05/24 -???-???-???-???-???-? ??-???-???-???-???-??? -???- 11w 2d 164 lb 120/75 -???-???-???-???-???-? ??-???-???-???-???-??? -???- 169 -???-???-???- (more content not included)... Normal [facility] Laboratory - Chemistry and C hemistry - challengeOrdered By: Corina Daniel on 02-06-2025 Glucose Ql (U) Negative [facility] Laboratory - UrinalysisOrder ed By: Corina Daniel on 02-06-2025 Protein Ql (U) Negative [facility] [facility] Adult Basic Studies Teacher Office Visit Reporton 02-06-2025 Adult Basic Studies Teacher Office Visit Report [facility]'s [address], [address] [place] [address] OFFICE VISIT Date of Service: 02/06/25 MR#: [id number] Acct: [id number] Name: EDEL GALLOWAY Rep #: [id number] : 1995 Provider: BRAYAN Jj ams Age/Sex: 29/F Location: [facility] Status: Signed Intake Vital Signs 12/28/24 14:53 01/23/25 10:17 02/06/25 11:11 Height 5 ft 4 in 5 ft 4 in 5 ft 4 in Weight: 162 lb 4 oz BMI 27.8 BP 112/75 Intake Visit Reasons: 29 wk ob Chief Complaint: 29wk OB Biometrics Technician Required: No Is patient in pain?: No Allergies No Known Allergies Allergy (Verified 02/06/25 11:11) Medications ???Medication ???Instructions ???Recorded ???Confirmed ???Type multivitamin no.47-iron fum 27 cap PO 09/27/24 02/06/25 History mg-folate no.1 1 mg-dha 300 mg capsule (PNV-DHA) metoclopramide HCl 10 mg tablet 10 mg PO Q6H PRN nausea and 02/06/25 Rx vomiting #14 tabs ondansetron 4 mg disintegrating 4 mg PO Q6H PRN nausea and 5 02/06/25 Rx tablet vomiting #30 tabs loratadine 10 mg tablet (Claritin) 10 mg PO QDAY 12/28/24 02/06/25 History Last Menstrual Period: 07/18/24 : No Have you fallen in the past year?: No PFSH PFSH Medical History Conjunctivitis, right eye Hx of abnormal cervical Pap smear Complete Spotting Heartburn Non-smoker Cholelithiases Frequent headaches Surgical History History of laparoscopic cholecystectomy ( 03/2022) Hx of wisdom tooth extraction Family History Mother Diabetes Hypertension Grandmother Heart disease Social History adopted: No household members: spouse and children number of children: 1 current occupational status: employed 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: Yes (bloodborne pathogens) pets and animals: Yes pets and animals: dog(s) history of recent travel: No ([place], [place]) sexually active: Yes Smoking Status: Never smoker alcohol intake: current alcohol intake frequency: a few times a month Alcohol type: beer and wine details: not while substance use type: does not use well-balanced diet: daily or most days caffeine: No eating out: 1-3 times/week during the past year weight has: increased > 10 lbs what type of physical activity do you participate in: walking frequency: 1-2 times per week duration: 15-30 minutes/day maynor/episcopal: None seatbelt use: always do you feel safe at home: Yes additional social history: - Dave History 3 Elective abortions Hx Para 1 Spontaneous abortions 1 Hx # Term Pregnancies Ectopic pregnancies Hx # Pregnancies Multiple births # of living children 1 Past Pregnancies Del. Date Name GA/Weeks Outcome Route Bth Weight [facility] miscarriage @5-6 wks 09/24/23 Miroslava 40 live - full term 7#9oz Female epidural [facility] Jonah Acosta Delivery Date: 09/24/23 Last Updated by: Macrina Schwab COVID, vanishing twin, 2nd degree laceration HPI 29 wk ob Details: EDEL GALLOWAY is a 29 year old who presents for routine OB visit. OB Visit JOE Calculator Estimated Delivery Date Method Current WG Current Estimate 04/24/25 LMP (Certain) 29w 0d Other Estimates 04/25/25 Ultrasound #1 28w 6d Expected Delivery Route/Plan Labor Preferences- CB/BF classes: [] labor support person: [] labor intervention preferences: [] pain management options preferred: [] cut cord/dad catch: [] : [] PP control planned: [] discussed possible routes of delivery and associated risks: [] special requests: [] Specific Issue/Plans Covid status: [] Flu vaccine: [] Tdap vaccine: [] Rhogam: [] LARC form signed: [] Problem list reviewed and updated with the most current plan of care details and appropriate orders placed. Relevant counseling for the gestational age provided. Continue routine care and follow up unless otherwise noted in visit notes/problem list details Initial Weight: Not Recorded Date -???-???-???-???-???-? ??-???-???-???-???-??? -???- EGA Weight BP Urine Prot -???-???-???-???-???-? ??-???-???-???-???-??? -???- Glucose FHR FuHt Pres Dilation -???-???-???-???-???-? ??-???-???-???-???-??? -???- Effaced St Visit Note 10/05/24 -???-???-???-???-???-? ??-???-???-???-???-??? -???- 11w 2d 164 lb 120/75 -???-???-???-???-???-? ??-???-???-???-???-??? -???- 169 -???-???-???-???-???-? ??-???-???-???-???-??? -???- [place]- BARNEY is c sabra (more content not included)... Normal [facility] Absolute lymphocyte countOrd ered By: Ida Ye on 01-23-2025 Lymphocytes Auto (Unsp spec) [#/Vol] 1.13 10*3/uL 0.83-4.[address] [facility] Absolute neutrophil countOrd ered By: Ida Ye on 01-23-2025 Neutrophils (Bld) [#/Vol] 7.4 10*3/uL 2.0-7.[address] [facility] Automated lymphocyte count a s percentage of total leukocytesOrdered By: Ida Ye on 01-23-2025 Lymphocytes/100 WBC Auto (Unsp spec) 12.0 % Low 19-[address] [facility] Basophil percentageOrdered B y: Ida Ye on 01-23-2025 Basophils/100 WBC (Bld) 0.3 % 0-1 [facility] CBC W/Diff, Automatedon 01-05 Absolute Lymph 1.13 X10 3/uL Normal 0.83-4.[address] [facility] Comment on above: Performed By: #### L 509.8002, L501.0250, L3890.6006, L100.0100 ####[facility] [address] [place], [address] Absolute Neut 7.4 X10 3/uL Normal 2.0-7.[address] [facility] Comment on above: Performed By: #### L 509.8002, L501.0250, L3890.6006, L100.0100 ####[facility] [address] [place], [address] Basophils/100 WBC (Bld) 0.3 % Normal 0-1 [facility] Comment on above: Performed By: #### L 509.8002, L501.0250, L3890.6006, L100.0100 ####[facility] [address] [place], [address] Eosinophils/100 WBC (Bld) 0.9 % Normal 0-[address] [facility] Comment on above: Performed By: #### L 509.8002, L501.0250, L3890.6006, L100.0100 ####[facility] [address] [place], [address] Erythrocyte distribution width (RBC) [Ratio] 13.2 % Normal 11.6-14.[address] [facility] Comment on above: Performed By: #### L 509.8002, L501.0250, L3890.6006, L100.0100 ####[facility] [address] [place], [address] Hematocrit (Bld) [Volume fraction] 30.2 % Low 37-[address] [facility] Comment on above: Performed By: #### L 509.8002, L501.0250, L3890.6006, L100.0100 ####[facility] [address] [place], [address] Hemoglobin (Bld) [Mass/Vol] 10.3 g/dL Low 12.0-15.[address] [facility] Comment on above: Performed By: #### L 509.8002, L501.0250, L3890.6006, L100.0100 ####[facility] [address] [place], [address] IG% 0.400 Normal 0.0-0.[address] [facility] Comment on above: Result Comment: IG% - Immature Granulocytes (promyelocytes, myelocytes and metamyelocytes) > 1% indicates that a LEFT SHIFT is Present. Performed By: #### L 509.8002, L501.0250, L3890.6006, L100.0100 ####[facility] [address] [place], [address] Lymphocytes/100 WBC (Bld) 12.0 % Low 19-[address] [facility] Comment on above: Performed By: #### L 509.8002, L501.0250, L3890.6006, L100.0100 ####[facility] [address] [place], [address] MCH (RBC) [Entitic mass] 29.8 pg Normal 27.0-32.[address] [facility] Comment on above: Performed By: #### L 509.8002, L501.0250, L3890.6006, L100.0100 ####[facility] [address] [place], [address] MCHC (RBC) [Mass/Vol] 34.1 g/dL Normal 32-36 [facility] Comment on above: Performed By: #### L 509.8002, L501.0250, L3890.6006, L100.0100 ####[facility] [address] [place], [address] MCV (RBC) [Entitic vol] 87.3 fL Normal 81-99 [facility] Comment on above: Performed By: #### L 509.8002, L501.0250, L3890.6006, L100.0100 ####[facility] [address] [place], [address] Monocytes/100 WBC (Bld) 7.3 % Normal 0-10 [facility] Comment on above: Performed By: #### L 509.8002, L501.0250, L3890.6006, L100.0100 ####[facility] [address] [place], [address] Neutrophils/100 WBC (Bld) 79.1 % High 47-[address] [facility] Comment on above: Performed By: #### L 509.8002, L501.0250, L3890.6006, L100.0100 ####[facility] [address] [place], [address] Nucleated RBC (Bld) [#/Vol] 0 10*3/uL Normal 0-[address] [facility] Comment on above: Performed By: #### L 509.8002, L501.0250, L3890.6006, L100.0100 ####[facility] [address] [place], [address] Platelet mean volume (Bld) [Entitic vol] 11.5 fL Normal 6.2-12.[address] [facility] Comment on above: Performed By: #### L 509.8002, L501.0250, L3890.6006, L100.0100 ####[facility] [address] [place], [address] Platelets (Bld) [#/Vol] 181 10*3/uL Normal 150-[address] [facility] Comment on above: Performed By: #### L 509.8002, L501.0250, L3890.6006, L100.0100 ####[facility] [address] [place], [address] RBC (Bld) [#/Vol] 3.46 10*6/uL Low 4.2-5.4 [facility] Comment on above: Performed By: #### L 509.8002, L501.0250, L3890.6006, L100.0100 ####[facility] [address] [place], [address] RDW SD 42.0 fl Normal 35.1-43.[address] [facility] Comment on above: Performed By: #### L 509.8002, L501.0250, L3890.6006, L100.0100 ####[facility] [address] [place], [address] WBC (Bld) [#/Vol] 9.4 10*3/uL Normal 4.4-11.0 [facility] Comment on above: Performed By: #### L 509.8002, L501.0250, L3890.6006, L100.0100 ####[facility] [address] [place], [address] Eosinophil percentageOrdered By: Ida Ye on 01-23-2025 Eosinophils/100 WBC (Bld) 0.9 % 0-[address] [facility] Erythrocyte distribution wid th ratioOrdered By: Ida Ye on 01-23-2025 Erythrocyte distribution width (RBC) [Ratio] 13.2 % 11.6-14.[address] [facility] Erythrocyte distribution wid th standard deviationOrdered By: Ida Ye on 01-23-2025 Erythrocyte distribution width (RBC) [Ratio] 42.0 fl 35.1-43.[address] [facility] Glucose Challenge Gest 1H 50 renee 01-23-2025 GLU GEST 50g 1H 121 mg/dL Normal 70-[address] [facility] Comment on above: Performed By: #### L 509.8002, L501.0250, L3890.6006, L100.0100 ####[facility] [address] [place], [place], [id number] Glucose measurement at 2 sophia rs post-dose gestational glucose tolerance testOrdered By: Ida Ye on 01-23-2025 Glucose [Mass/Vol] 121 mg/dL 70-140 [facility] HIVon 01-23-2025 HIV Non-Reactive Normal Nonreactive [facility] Comment on above: Result Comment: Non- Reactive Reactive Repeatedly reactive samples must be confirmed according to CDC recommended confirmatory algorithms. The subresults for either HIVAG or AHIV can be used as an aid in the selection of the confirmation algorithm for reactive samples. Send out specimens with Reactive results to [facility] for confirmation. Order the HIV antibody detection and differentiation: #[id number] Performed By: #### L 509.8002, L501.0250, L3890.6006, L100.0100 ####[facility] [address] [place], [place], [id number] Hematocrit Auto (Bld) [Volum e fraction]Ordered By: Ida Ye on 01-23-2025 Hematocrit (Bld) [Volume fraction] 30.2 % Low 37-[address] [facility] Hemoglobin measurementOrdere d By: Ida Ye on 01-23-2025 Hemoglobin (Bld) [Mass/Vol] 10.3 g/dL Low 12.0-15.[address] [facility] Immature granulocytes/100 WB C Auto (Bld)Ordered By: Ida Ye on 01-23-2025 Immature granulocytes/100 WBC (Bld) 0.400 % 0.0-0.[address] [facility] Comment on above: IG% - Immature Granu locytes (promyelocytes, myelocytes and metamyelocytes) > 1% indicates that a LEFT SHIFT is Present. Laboratory - Chemistry and C hemistry - challengeOrdered By: Corina Daniel on 01-23-2025 Glucose Ql (U) Negative [facility] Laboratory - UrinalysisOrder ed By: Corina Dnaiel on 01-23-2025 Protein Ql (U) Negative [facility] MCV (mean corpuscular volume ) determinationOrdered By: Ida Ye on 01-23-2025 MCV (RBC) [Entitic vol] 87.3 fL 81-99 [facility] Mean corpuscular hemoglobin (MCH) determinationOrdered By: Ida Ye on 01-23-2025 MCH (RBC) [Entitic mass] 29.8 pg 27.0-32.[address] [facility] Mean corpuscular hemoglobin concentration (MCHC) determinationOrdered By: Ida Ye on 01-23-2025 MCHC (RBC) [Mass/Vol] 34.1 g/dL 32-36 [facility] Mean platelet volume determi nationOrdered By: Ida Ye on 01-23-2025 Platelet mean volume (Bld) [Entitic vol] 11.5 fL 6.2-12.[address] [facility] Monocyte percentageOrdered B y: Ida Ye on 01-23-2025 Monocytes/100 WBC (Bld) 7.3 % 0-10 [facility] Neutrophil percentageOrdered By: Ida Ye on 01-23-2025 Neutrophils/100 WBC (Bld) 79.1 % High 47-[address] [facility] No Panel InformationOrdered By: Ida Ye on 01-23-2025 HIV (1&2) Antibody Non-Reactive Nonreactive [facility] Comment on above: Non-ReactiveReactive Repeatedly reactive samples must be confirmed according to CDC recommended confirmatory algorithms. The subresults for either HIVAG or AHIV can be used as an aid in the selection of the confirmation algorithm for reactive samples.Send out specimens with Reactive results to [facility] for confirmation.Order the HIV antibody detection and differentiation: lc#[id number] Nucleated red blood cell per centageOrdered By: Ida Ye on 01-23-2025 Nucleated RBC/100 WBC (Bld) [Ratio] 0 % 0-[address] [facility] Adult Basic Studies Teacher Office Visit Reporton 01-23-2025 Adult Basic Studies Teacher Office Visit Report [facility]'s [address], [address] [place] [address] OFFICE VISIT Date of Service: 01/23/25 MR#: [id number] Acct: [id number] Name: EDEL GALLOWAY Rep #: [id number] : 1995 Provider: BRAYAN Jj ams Age/Sex: 29/F Location: [facility] Status: Signed Intake Vital Signs 12/02/24 09:59 12/28/24 14:53 01/23/25 10:17 Height 5 ft 4 in 5 ft 4 in 5 ft 4 in Weight: 161 lb 8 oz BMI 27.7 BP 107/75 Intake Visit Reasons: 27wk ob/glucose Chief Complaint: 27wk OB Biometrics Technician Required: No Is patient in pain?: No Allergies No Known Allergies Allergy (Verified 01/23/25 10:15) Medications ???Medication ???Instructions ???Recorded ???Confirmed ???Type multivitamin no.47-iron fum 27 cap PO 09/27/24 01/23/25 History mg-folate no.1 1 mg-dha 300 mg capsule (PNV-DHA) metoclopramide HCl 10 mg tablet 10 mg PO Q6H PRN nausea and 01/23/25 Rx vomiting #14 tabs ondansetron 4 mg disintegrating 4 mg PO Q6H PRN nausea and 5 01/23/25 Rx tablet vomiting #30 tabs loratadine 10 mg tablet (Claritin) 10 mg PO QDAY 12/28/24 01/23/25 History Last Menstrual Period: 07/18/24 : No PFSH PFSH Medical History Conjunctivitis, right eye Hx of abnormal cervical Pap smear Complete Spotting Heartburn Non-smoker Cholelithiases Frequent headaches Surgical History History of laparoscopic cholecystectomy ( 03/2022) Hx of wisdom tooth extraction Family History Mother Diabetes Hypertension Grandmother Heart disease Social History adopted: No household members: spouse and children number of children: 1 current occupational status: employed 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: Yes (bloodborne pathogens) pets and animals: Yes pets and animals: dog(s) history of recent travel: No ([place], [place]) sexually active: Yes Smoking Status: Never smoker alcohol intake: current alcohol intake frequency: a few times a month Alcohol type: beer and wine details: not while substance use type: does not use well-balanced diet: daily or most days caffeine: No eating out: 1-3 times/week during the past year weight has: increased > 10 lbs what type of physical activity do you participate in: walking frequency: 1-2 times per week duration: 15-30 minutes/day maynor/episcopal: None seatbelt use: always do you feel safe at home: Yes additional social history: - Dave History 3 Elective abortions Hx Para 1 Spontaneous abortions 1 Hx # Term Pregnancies Ectopic pregnancies Hx # Pregnancies Multiple births # of living children 1 Past Pregnancies Del. Date Name GA/Weeks Outcome Route Bth Weight Gen Labor Lgth Anesthesia Del [facility] Provider FOB 11/20/22 miscarriage @5-6 wks 09/24/23 Delainey 40 live - full term 7#9oz Female epidural [facility] Jonah Acosta Delivery Date: 09/24/23 Last Updated by: Macrina Schwab COVID, vanishing twin, 2nd degree laceration HPI 27wk ob/glucose Details: EDEL GALLOWAY is a 29 year old who presents for routine OB visit. OB Visit JOE Calculator Estimated Delivery Date Method Current WG Current Estimate 04/24/25 LMP (Certain) 27w 0d Other Estimates 04/25/25 Ultrasound #1 26w 6d Expected Delivery Route/Plan Labor Preferences- CB/BF classes: [] labor support person: [] labor intervention preferences: [] pain management options preferred: [] cut cord/dad catch: [] : [] PP control planned: [] discussed possible routes of delivery and associated risks: [] special requests: [] Specific Issue/Plans Covid status: [] Flu vaccine: [] Tdap vaccine: [] Rhogam: [] LARC form signed: [] Problem list reviewed and updated with the most current plan of care details and appropriate orders placed. Relevant counseling for the gestational age provided. Continue routine care and follow up unless otherwise noted in visit notes/problem list details Initial Weight: Not Recorded Date -???-???-???-???-???-? ??-???-???-???-???-??? -???- EGA Weight BP Urine Prot -???-???-???-???-???-? ??-???-???-???-???-??? -???- Glucose FHR FuHt Pres Dilation -???-???-???-???-???-? ??-???-???-???-???-??? -???- Effaced St Visit Note 10/05/24 -???-???-???-???-???-? ??-???-???-???-???-??? -???- 11w 2d 164 lb 120/75 -???-???-???-???-???-? ??-???-???-???-???-??? -???- 169 -???-???-???-???-???-? ??-???-???-???-???-??? -???- JMarie- BARNEY is c onsistent with LMP. She decli (more content not included)... Normal [facility] Platelet countOrdered By: Anil Ye on 01-23-2025 Platelets (Bld) [#/Vol] 181 10*3/uL 150-[address] [facility] RBC Auto (Bld) [#/Vol]Ordere d By: Ida Ye on 01-23-2025 RBC (Bld) [#/Vol] 3.46 10*6/uL Low 4.2-5.4 [facility] Syphilis Antibodieson 2024 Syphilis Abs Non-Reactive Normal Nonreactive [facility] Comment on above: Performed By: #### L 509.8002, L501.0250, L3890.6006, L100.0100 ####[facility] [address] [place], [address] White blood cell (WBC) count Ordered By: Ida Ye on 01-23-2025 WBC (Bld) [#/Vol] 9.4 10*3/uL 4.4-11.0 [facility] Urine Cultureon 12-31-2024 URC Below infection travis durbin Mixed Gram Positive Organisms [place] Count 1000-10,000 MIXC Mixed contaminants. Submit a new specimen if indicated. Normal [facility] Comment on above: Performed By: #### M 100.2200 #### [facility] Laboratory [address] [place], [place], [address] Laboratory - Chemistry and C hemistry - challengeOrdered By: Farrah Restrepo on 12-28-2024 Bilirubin Ql (U) Negative [facility] Glucose Ql (U) Negative [facility] Ketones Ql (U) Large (80+) [facility] pH (U) 6.0 [pH] [facility] Specific gravity (U) [Rel density] 1.[address] [facility] Urobilinogen (U) [Mass/Vol] 0.6601724 mg/dL [facility] Laboratory - Hematology and Cell countsOrdered By: Farrah Restrepo on 12-28-2024 Hemoglobin Ql (U) Negative [facility] Laboratory - Specimen inform ationOrdered By: Farrah Restrepo on 12-28-2024 Clarity (U) Cloudy [facility] Color (U) Yellow [facility] Laboratory - UrinalysisOrder ed By: Farrah Restrepo on 12-28-2024 Nitrite Ql (U) Negative [facility] Protein Ql (U) Negative [facility] No Panel InformationOrdered By: Farrah Restrepo on 12-28-2024 Urine Leukocytes Negatve [facility] Adult Basic Studies Teacher Office Visit Reporton 12-28-2024 Adult Basic Studies Teacher Office Visit Report [facility] [address], [address] [place] [address] OFFICE VISIT Date of Service: 12/28/24 MR#: [id number] Acct: [id number] Name: EDEL GALLOWAY Rep #: [id number] : 1995 Provider: SABINE casper Age/Sex: 29/F Location: [facility] [place] Status: Signed Intake Vital Signs 11/02/24 14:27 12/02/24 09:59 12/28/24 14:53 12/28/24 14:53 Height 5 ft 4 in 5 ft 4 in 5 ft 4 in 5 ft 4 in Weight: 159 lb 2 oz BMI 27.3 BP 110/74 Intake Visit Reasons: 23 wk ob *POS UTI Biometrics Technician Required: No Is patient in pain?: No Allergies No Known Allergies Allergy (Verified 12/28/24 14:52) Medications ???Medication ???Instructions ???Recorded ???Confirmed ???Type multivitamin no.47-iron fum 27 cap PO 09/27/24 12/28/24 History mg-folate no.1 1 mg-dha 300 mg capsule (PNV-DHA) metoclopramide HCl 10 mg tablet 10 mg PO Q6H PRN nausea and 12/28/24 Rx vomiting #14 tabs ondansetron 4 mg disintegrating 4 mg PO Q6H PRN nausea and 5 12/28/24 Rx tablet vomiting #30 tabs loratadine 10 mg tablet (Claritin) 10 mg PO QDAY 12/28/24 12/28/24 History Last Menstrual Period: 07/18/24 Zika: Zika virus screening: Negative : No PFSH PFSH Medical History Conjunctivitis, right eye Hx of abnormal cervical Pap smear Complete Spotting Heartburn Non-smoker Cholelithiases Frequent headaches Surgical History History of laparoscopic cholecystectomy ( 03/2022) Hx of wisdom tooth extraction Family History Mother Diabetes Hypertension Grandmother Heart disease Social History adopted: No household members: spouse and children number of children: 1 current occupational status: employed 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: Yes (bloodborne pathogens) pets and animals: Yes pets and animals: dog(s) history of recent travel: No ([place], [place]) sexually active: Yes Smoking Status: Never smoker alcohol intake: current alcohol intake frequency: a few times a month Alcohol type: beer and wine details: not while substance use type: does not use well-balanced diet: daily or most days caffeine: No eating out: 1-3 times/week during the past year weight has: increased > 10 lbs what type of physical activity do you participate in: walking frequency: 1-2 times per week duration: 15-30 minutes/day maynor/episcopal: None seatbelt use: always do you feel safe at home: Yes additional social history: - Dave History 3 Elective abortions Hx Para 1 Spontaneous abortions 1 Hx # Term Pregnancies Ectopic pregnancies Hx # Pregnancies Multiple births # of living children 1 Past Pregnancies Del. Date Name GA/Weeks Outcome Route Bth Weight [facility]22 miscarriage @5-6 wks 09/24/23 Delainey 40 live - full term 7#9oz Female epidural [facility] [facility] Delivery Date: 09/24/23 Last Updated by: Macrina Schwab COVID, vanishing twin, 2nd degree laceration HPI 23 wk ob *POS UTI Details: EDEL GALLOWAY is a 29 year old who presents for routine OB visit. OB Visit JOE Calculator Estimated Delivery Date Method Current WG Current Estimate 04/24/25 LMP (Certain) 23w 2d Other Estimates 04/25/25 Ultrasound #1 23w 1d Expected Delivery Route/Plan Labor Preferences- CB/BF classes: [] labor support person: [] labor intervention preferences: [] pain management options preferred: [] cut cord/dad catch: [] : [] PP control planned: [] discussed possible routes of delivery and associated risks: [] special requests: [] Specific Issue/Plans Covid status: [] Flu vaccine: [] Tdap vaccine: [] Rhogam: [] LARC form signed: [] Problem list reviewed and updated with the most current plan of care details and appropriate orders placed. Relevant counseling for the gestational age provided. Continue routine care and follow up unless otherwise noted in visit notes/problem list details Initial Weight: Not Recorded Date -???-???-???-???-???-? ??-???-???-???-???-??? -???- EGA Weight BP Urine Prot -???-???-???-???-???-? ??-???-???-???-???-??? -???- Glucose FHR FuHt Pres Dilation -???-???-???-???-???-? ??-???-???-???-???-??? -???- Effaced St Visit Note 10/05/24 -???-???-???-???-???-? ??-???-???-???-???-??? -???- 11w 2d 164 lb 120/75 -???-???-???-???-???-? ??-???-???-???-???-??? -???- 169 -???-???-???-???-???-? ??-???-??? (more content not included)... Normal [facility] Urine cultureOrdered By: Karissa Restrepo on 12-28-2024 Bacteria identified Cx Nom (U) Positive Abnormal [facility] Laboratory - Chemistry and C hemistry - challengeOrdered By: Ida Ye on 12-02-2024 Glucose Ql (U) Negative [facility] Laboratory - UrinalysisOrder ed By: Ida Ye on 12-02-2024 Protein Ql (U) Negative [facility] Adult Basic Studies Teacher Office Visit Reporton 12-02-2024 Adult Basic Studies Teacher Office Visit Report [facility]'[address], [address] [place] [address] OFFICE VISIT Date of Service: 12/02/24 MR#: [id number] Acct: [id number] Name: EDEL GALLOWAY Rep #: [id number] : 1995 Provider: SABINE casper Age/Sex: 29/F Location: [facility] Status: Signed Intake Vital Signs 10/05/24 12:36 11/18/24 18:02 12/02/24 09:59 Height 5 ft 4 in 5 ft 4 in 5 ft 4 in Weight: 160 lb 2 oz BMI 27.4 BP 118/70 Intake Visit Reasons: 19 wk ob Chief Complaint: 19 Week OB Biometrics Technician Required: No Is patient in pain?: No Allergies No Known Allergies Allergy (Verified 12/02/24 09:58) Medications ???Medication ???Instructions ???Recorded ???Confirmed ???Type multivitamin no.47-iron fum 27 cap PO 09/27/24 12/02/24 History mg-folate no.1 1 mg-dha 300 mg capsule (PNV-DHA) cephalexin 500 mg capsule 500 mg PO Q12H 5 days #10 caps 12/02/24 Rx metoclopramide HCl 10 mg tablet 10 mg PO Q6H PRN nausea and 12/02/24 Rx vomiting #14 tabs ondansetron 4 mg disintegrating 4 mg PO Q6H PRN nausea and 5 12/02/24 Rx tablet vomiting #30 tabs Last Menstrual Period: 07/18/24 Zika: Zika virus screening: Negative : No PFSH PFSH Medical History Conjunctivitis, right eye Hx of abnormal cervical Pap smear Complete Spotting Heartburn Non-smoker Cholelithiases Frequent headaches Surgical History History of laparoscopic cholecystectomy ( 03/2022) Hx of wisdom tooth extraction Family History Mother Diabetes Hypertension Grandmother Heart disease Social History adopted: No household members: spouse and children number of children: 1 current occupational status: employed 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: Yes (bloodborne pathogens) pets and animals: Yes pets and animals: dog(s) history of recent travel: No ([place], [place]) sexually active: Yes Smoking Status: Never smoker alcohol intake: current alcohol intake frequency: a few times a month Alcohol type: beer and wine details: not while substance use type: does not use well-balanced diet: daily or most days caffeine: No eating out: 1-3 times/week during the past year weight has: increased > 10 lbs what type of physical activity do you participate in: walking frequency: 1-2 times per week duration: 15-30 minutes/day maynor/episcopal: None seatbelt use: always do you feel safe at home: Yes additional social history: - Dave History 3 Elective abortions Hx Para 1 Spontaneous abortions 1 Hx # Term Pregnancies Ectopic pregnancies Hx # Pregnancies Multiple births # of living children 1 Past Pregnancies Del. Date Name GA/Weeks Outcome Route Bth Weight Infant Gen Labor Lgth Anesthesia Del Locatn Provider FOB 11/20/22 miscarriage @5-6 wks 09/24/23 Delainey 40 live - full term 7#9oz Female epidural [facility] Jon[facility] Acosta Delivery Date: 09/24/23 Last Updated by: Macrina TEJADA, vanishing twin, 2nd degree laceration HPI 19 wk ob Details: EDEL GALLOWAY is a 29 year old who presents for routine OB visit. OB Visit JOE Calculator Estimated Delivery Date Method Current WG Current Estimate 04/24/25 LMP (Certain) 19w 4d Other Estimates 04/25/25 Ultrasound #1 19w 3d Expected Delivery Route/Plan Labor Preferences- CB/BF classes: [] labor support person: [] labor intervention preferences: [] pain management options preferred: [] cut cord/dad catch: [] : [] PP control planned: [] discussed possible routes of delivery and associated risks: [] special requests: [] Specific Issue/Plans Covid status: [] Flu vaccine: [] Tdap vaccine: [] Rhogam: [] LARC form signed: [] Problem list reviewed and updated with the most current plan of care details and appropriate orders placed. Relevant counseling for the gestational age provided. Continue routine care and follow up unless otherwise noted in visit notes/problem list details Initial Weight: Not Recorded Date -???-???-???-???-???-? ??-???-???-???-???-??? -???- EGA Weight BP Urine Prot -???-???-???-???-???-? ??-???-???-???-???-??? -???- Glucose FHR FuHt Pres Dilation -???-???-???-???-???-? ??-???-???-???-???-??? -???- Effaced St Visit Note 10/05/24 -???-???-???-???-???-? ??-???-???-???-???-??? -???- 11w 2d 164 lb 120/75 -???-???-???-???-???-? ??-???-???-???-???-??? -???- 169 -???-???-???-???-???-? ??-???-???-???-?? (more content not included)... [facility] Urine Cultureon 11-20-2024 URC Below infection travis durbin Mixed Gram Positive Organisms Rosharon Count 1000-10,000 MIXC Mixed contaminants. Submit a new specimen if indicated. Normal [facility] Comment on above: Performed By: #### L 400.0001, M100.678, M100.2200 #### [facility] [place], [address] Nenita 11-19-2024 VIRAJ Telephone ([facility]) EDLE GALLOWAY ([id number]) 1995 F Date Time Provider Department 11/19/24 WENCESLAO SHORT JR [facility] During your visit today, we recorded the following information about you: Wenceslao Short Jr., GABRIELA.HEALTH PHYSICIST 11/19/2024 9:03 AM Signed Patient is positive for influenza A. She was prescribed Tamiflu by her academic success coordinator. She could use [id number] medications that are appropriate during for her other symptoms. Please inform her of the positive test she is negative for COVID, influenza B and RSV. Allergies As of Date: 11/19/2024 Noted Allergy Reaction AZITHROMYCIN 11/18/2024 2 - Rash Date Reviewed: 11/18/2024 Reviewed by: Wenceslao Short Jr., UNDER GROUND MINER.HEALTH PHYSICIST - Fully Assessed Prescriptions as of 11/19/2024 - ondansetron orally disintegrating (ZOFRAN ODT) 4 mg disintegrating tablet Take 4 mg by mouth every 8 hours as needed for nausea/vomiting. - acetaminophen (TYLENOL) 325 mg tablet Take 650 mg by mouth every 6 hours as needed for pain or fever (specify temp.). - doxylamine-pyridoxine, vit B6, 10-10 mg TbEC Take 2 tabs at night. If symptoms persist after 2 days add one tab in the morning. If symptoms still persist after 4 days add a tab mid-day - amoxicillin-clavulanat e potassium (AUGMENTIN) 875-125 mg per tablet Take 1 tablet by mouth two times a day for 5 days. Problem List As Of Date: 11/19/2024 (None) Encounter Status:Closed by WENCESLAO SHORT on 11/19/24 Normal [facility] Bilirubin Test strip Ql (U)O rdered By: Alfonso Sylvester on 11-18-2024 Bilirubin Ql (U) Negative Negative [facility] CNOVon 11-18-2024 CNOV Office Visit ([facility] ) EDEL GALLOWAY ([id number]) 1995 F Date Time Provider Department 11/18/24 8:30 AM WENCESLAO SHORT JR [facility] During your visit today, we recorded the following information about you: Temperature Pulse Respiration Blood pressure 97.4 degrees 110/minute 18/minute 106/71 Weight 70.9 kg Wenceslao Short Jr., UNDER GROUND MINER.HEALTH PHYSICIST 11/18/2024 9:13 AM Signed [facility] Subjective Edel Galloway is a 29 year old female. Patient presents with: Cough: Cough, sinus pressure, N/V all x 2 days 29-year-old gravid female presents today with a complaint of sinus pain that is radiating to her upper teeth bilaterally teeth. Nausea and vomiting and cough by 2 days. Patient concerned about dehydration stating that she has been throwing up all night. She has been prescribed Zofran by her MEDICAL TRANSCRIPTION RADIOLOGY but only has 1 tablet left. Patient states she has been exposed to influenza A from a family member. She is currently taking Tamiflu prescribed by her MEDICAL TRANSCRIPTION RADIOLOGY. The history is provided by the patient. Review of Systems Constitutional: Negative for fever. HENT: Positive for sinus pressure and sinus pain. Respiratory: Positive for cough. Gastrointestinal: Positive for nausea and vomiting. Neurological: Negative for headaches. Objective BP 106/71 Pulse 110 Temp 36.3 ?C (97.4 ?F) Resp 18 Wt 70.9 kg (156 lb 6.4 oz) SpO2 99% Physical Exam Vitals (Patient is tachycardic) and nursing note reviewed. Constitutional: Appearance: She is not ill-appearing or diaphoretic. HENT: Head: Normocephalic and atraumatic. Right Ear: Tympanic membrane normal. Left Ear: Tympanic membrane normal. Nose: Congestion and rhinorrhea present. Comments: There is to palpation of the bilateral maxillary sinuses, bilateral turbinates erythematous/edematous . Mouth/Throat: Mouth: Mucous membranes are moist. Pharynx: Oropharynx is clear. No posterior oropharyngeal erythema. Eyes: Conjunctiva/sclera: Conjunctivae normal. Cardiovascular: Rate and Rhythm: Normal rate and regular rhythm. Heart sounds: Normal heart sounds. Pulmonary: Effort: Pulmonary effort is normal. Breath sounds: Normal breath sounds. No stridor. No wheezing or rales. Abdominal: General: Bowel sounds are normal. Palpations: Abdomen is soft. Skin: General: Skin is warm and dry. Neurological: Mental Status: She is alert and oriented to person, place, and time. Psychiatric: Comments: Patient emotional at today's visit. COVID/influenza/RSV test performed. Awaiting test results. Assessment AND Plan Congestion of nasal sinus Based on examination I am concerned for COVID or influenza. I did reassure patient she is doing everything currently correct. Due to her sinus pain and exam findings I prescribed her Augmentin in case she is developing a sinus infection. I prescribed her dicyclomine pyridoxine for nausea. She stated she only had 1 Zofran left and even though she has contacted her MEDICAL TRANSCRIPTION RADIOLOGY for refill no prescription has been sent in. I gave her a work slip for today. Patient was informed if she is unable to keep fluids down I recommend she goes to the emergency room as I am unable to give her fluids at this urgent care. Orders: doxylamine-pyridoxine, vit B6, 10-10 mg TbEC; Take 2 tabs at night. If symptoms persist after 2 days add one tab in the morning. If symptoms still persist after 4 days add a tab mid-day amoxicillin-clavulanat e potassium (AUGMENTIN) 875-125 mg per tablet; Take 1 tablet by mouth two times a day for 5 days. Nausea and vomiting, unspecified vomiting type Orders: COVID AND INFLUENZA A/B AND RSV PCR, ROUTINE doxylamine-pyridoxine, vit B6, 10-10 mg TbEC; Take 2 tabs at night. If symptoms persist after 2 days add one tab in the morning. If symptoms still persist after 4 days add a tab mid-day MDM Procedures Wenceslao Short Jr., APRN.CNP 11/18/2024 8:56 AM Signed Take medications as prescribed. Follow-up with PCP or return if symptoms do not resolve visit Urgent Care. Allergies As of Date: 11/18/2024 Noted Allergy Reaction AZITHROMYCIN 11/18/2024 2 - Rash Date Reviewed: 11/18/2024 Reviewed by: Wenceslao Short Jr., GABRIELA.HEALTH PHYSICIST - Fully Assessed Reason for Visit: Cough [28] Cmt: Cough, sinus pressure, N/V all x 2 days Primary Visit Diagnosis:Congestion of nasal sinus [R09.81] Other Visit Diagnosis:Nausea and vomiting, unspecified vomiting type [R11.2] Order(s):COVID AND INFLUENZA A/B AND RSV PCR, ROUTINE [SQCVFLRS] Order #: [id number]. #:[id number] doxylamine-pyridoxine, vit B6, 10-10 mg TbECTake 2 tabs at night. If symptoms persist after 2 days add one tab in the morning. If symptoms still persist after 4 days add a tab mid-dayDisp: 12 tabletRfl: 0 amoxicillin-clavulanat e potassium (AUGMENTIN) 875-125 mg per tabletTake 1 tablet by mouth two times a day for 5 da (more content not included)... [facility] Emergency Department Summary on 11-18-2024 Emergency Department Summary [facility] Medical Records Department [address] [place] [id number] Emergency Department Summary 11/18/24 MR#: [id number] Acct: [id number] Name: EDEL GALLOWAY Rep #: [id number] : 1995 29 From: Alfonso Sylvester DO PCP: Dr. Allyssa Velarde, Status:REG ER Location: ED HPI History of Present Illness Chief Complaint: General Illness Narrative Narrative: Patient is a 29-year-old female G2, P1 currently 17 weeks who presents to the emergency department chief complaint of nausea vomiting not able to tolerate oral intake for the last 24 hours. Patient states that she was prescribed Zofran by her MEDICAL TRANSCRIPTION RADIOLOGY and states that she has been taking it as much as possible however she still has been vomiting. States that her whole house is sick currently with similar symptoms. She states that her symptoms started on Thursday. She states that she went to urgent care and was given Unasyn today. Despite these medications she was not getting better therefore she came here for the valuation management. Patient states that she feels that she is dehydrated. Patient denies any urinary symptoms denies abdominal pain vaginal spotting or bleeding. States that her first was uncomplicated. PFSH PFSH Medical History Conjunctivitis, right eye Hx of abnormal cervical Pap smear Complete Spotting Heartburn Non-smoker Cholelithiases Frequent headaches Home Medications ???Medication ???Instructions ???Recorded ???Last Taken ???Type multivitamin no.47-iron fum 27 cap PO 09/27/24 Unknown History mg-folate no.1 1 mg-dha 300 mg capsule (PNV-DHA) oseltamivir 75 mg capsule (Tamiflu) 75 mg PO BID 5 days #10 caps Unknown Rx cephalexin 500 mg capsule 500 mg PO Q12H 5 days #10 caps Unknown Rx metoclopramide HCl 10 mg tablet 10 mg PO Q6H PRN nausea and Unknown Rx vomiting #14 tabs ondansetron 4 mg disintegrating 4 mg PO Q6H PRN nausea and 5 Unknown Rx tablet vomiting #30 tabs Allergy/AdvReac Type Severity Reaction Status Date / Time No Known Allergies Allergy Verified 11/18/24 18:02 Family History Mother Diabetes Hypertension Grandmother Heart disease Surgical History History of laparoscopic cholecystectomy ( 03/2022) Hx of wisdom tooth extraction Social History adopted: No household members: spouse and children number of children: 1 current occupational status: employed 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: Yes (bloodborne pathogens) pets and animals: Yes pets and animals: dog(s) history of recent travel: No ([place], [place]) sexually active: Yes Smoking Status: Never smoker alcohol intake: current alcohol intake frequency: a few times a month Alcohol type: beer and wine details: not while substance use type: does not use well-balanced diet: daily or most days caffeine: No eating out: 1-3 times/week during the past year weight has: increased > 10 lbs what type of physical activity do you participate in: walking frequency: 1-2 times per week duration: 15-30 minutes/day maynor/episcopal: None seatbelt use: always do you feel safe at home: Yes additional social history: - Dave ROS ROS ED ROS Narrative Constitutional: Complains of chills denies headache, lightness, dizziness Cardiovascular: Denies chest pain Respiratory: Denies shortness of breath Abdomen: Complains of nausea vomiting as noted above denies abdominal pain : Denies vaginal discharge, spotting, hematuria, increased frequency of urinating or painful urination Neurological: Denies numbness, weakness, tingling Musculoskeletal: Denies back pain Skin: Denies rashes or lesions EXAM Physical Exam Narrative Exam Narrative: General: Patient lying in bed rest comfortably did not appear to be in acute distress Head: Atraumatic, normocephalic Eyes: PERRL bilaterally, EOMI bilaterally, no conjunctival injection noted Neck: Soft, supple, trachea midline Cardiovascular: Patient tachycardic with a regular rhythm no murmurs gallops rubs noted Respiratory: Clear to auscultation bilaterally Abdomen: Soft, gravid abdomen no tenderness palpation Extremities: +5/5 strength noted in the bilateral upper and lower extremities, radial pulses +2/4 in the bilateral extremities, no pedal edema on exam Neurological: Patient following commands knew that she was at [facility] year is 2024 Skin: Warm, dry, intact no rashes lesions noted Const Vital Signs: 11/18/24 18:02 11/18/24 20:01 11/18/24 20:33 Temperature 98.0 F Temp (more content not included)... Normal [facility] Epithelial cells.squamous LM Ql (Urine sed)Ordered By: Alfonso Sylvester on 11-18-2024 Epithelial cells.squamous LM.HPF (Urine sed) [#/Area] 5 /[HPF] 5-[address] [facility] Glucose Ql (U)Ordered By: Paul Sylvester on 11-18-2024 Urine Glucose (UA) Normal mg/dl Normal [facility] Influenza virus A and B and SARS-CoV-2 (COVID-19) and Respiratory syncytial virus RNAOrdered By: Alfonso Sylvester on 11-18-2024 SARS-CoV-2 (COVID-19) RNA ASIF+probe Ql (Unsp spec) Influenzae A Abnormal [facility] Ketones Test strip Ql (U)Ord ered By: Alfonso Sylvester on 11-18-2024 Ketones Ql (U) 150 mg/dl Abnormal Negative [facility] Comment on above: CRITICAL VALUE *H M100.678on 11-18-2024 SARS-CoV-2 (COVID-19) Ab IA Ql FLUABV+SARS-CoV-2+RSV Pnl Resp ASIF+probe Copy of report sent to Infection Control Printer [id number] 11/18/242122 ANDRES. RESULTS CALLED TO BECKY DAVE 11/18/242122 Amy Patel. REPORT READ BACK BY SAME. FLUABV+SARS-CoV-2+RSV Pnl Resp ASIF+probe FLUABV+SARS-CoV-2+RSV Pnl Resp ASIF+probe SARS-CoV-2 (COVID 19) Negative INFLUENZA A A Positive A INFLUENZA B Negative RSV PCR Negative INFLUENZAE A Normal [facility] Comment on above: Performed By: #### L 400.0001, M100.678, M100.2200 #### [facility] [address] [place] [address]. [place], [address] Microscopic analysis of urin e for red blood cells (RBC)Ordered By: Alfonso Sylvester on 11-18-2024 Microscopic analysis of urine for red blood cells (RBC) 0-5 SEEN /hpf 0-[address] [facility] Urine RBC 0-5 SEEN /hpf 0-[address] [facility] Mucus LM Ql (Urine sed)Order ed By: Alfonso Sylvester on 11-18-2024 Mucus Ql (Urine sed) 0 SEEN /hpf [facility] Nitrite Test strip Ql (U)Ord ered By: Alfonso Sylvester on 11-18-2024 Nitrite Ql (U) Negative Negative [facility] Protein Test strip Ql (U)Ord ered By: Alfonso Sylvester on 11-18-2024 Protein Ql (U) 15 mg/dl High Negative [facility] Squamous epithelial cells de tection in urine sediment by light microscopyOrdered By: Alfonso Sylvester on 11-18-2024 Epithelial cells.squamous LM Ql (Urine sed) 5-10 SEEN /hpf 5-[address] [facility] Urinalysis, Completeon 11-18 BACTERIA 1+ /hpf Normal None Seen [facility] Comment on above: Order Comment: CRITI VASYL VALUE CALLED TO [facility] 11/18/24 2205 Amy Lollo. RESULTS READ BACK BY SAME. PATIENT ACCOUNT ANALYST TO SPECIFY Performed By: #### L 400.0001, M100.678, M100.2200 #### [facility] [address] [place], [address] EPI,SQUAMOUS 5-10 SEEN Normal 5-[address] [facility] Comment on above: Order Comment: CRITI VASYL VALUE CALLED TO [facility] 11/18/24 2205 Amy Lollo. RESULTS READ BACK BY SAME. PATIENT ACCOUNT ANALYST TO SPECIFY Performed By: #### L 400.0001, M100.678, M100.2200 #### [facility] [address] [place], [address] RBC 0-5 SEEN Normal 0-[address] [facility] Comment on above: Order Comment: CRITI VASYL VALUE CALLED TO [facility] 11/18/24 2205 Amy Lollo. RESULTS READ BACK BY SAME. PATIENT ACCOUNT ANALYST TO SPECIFY Performed By: #### L 400.0001, M100.678, M100.2200 #### [facility] [address] [place], [address] WBC 25-50 SEEN Normal 0-[address] [facility] Comment on above: Order Comment: CRITI VASYL VALUE CALLED TO [facility] 11/18/24 2205 Amy Lollo. RESULTS READ BACK BY SAME. PATIENT ACCOUNT ANALYST TO SPECIFY Performed By: #### L 400.0001, M100.678, M100.2200 #### [facility] [address] [place], [address] Mucus Ql (Urine sed) 0 SEEN Normal [facility] Comment on above: Order Comment: CRITI VASYL VALUE CALLED TO [facility] 11/18/24 2205 Amy Patel. RESULTS READ BACK BY SAME. PATIENT ACCOUNT ANALYST TO SPECIFY Performed By: #### L 400.0001, M100.678, M100.2200 #### [facility] [address] [place], [address] Urine blood detectionOrdered By: Alfonso Sylvester on 11-18-2024 Urine Occult Blood Negative Negative [facility] Urine clarityOrdered By: Beatrice Sylvester on 11-18-2024 Clarity (U) Sl. Cloudy Clear [facility] Urine color determinationOrd ered By: Alfonso Sylvester on 11-18-2024 Color (U) Yellow Yellow [facility] Urine cultureOrdered By: Beatrice Sylvester on 11-18-2024 Bacteria identified Cx Nom (U) Positive Abnormal [facility] Urine glucose detectionOrder ed By: Alfonso Sylvester on 11-18-2024 Glucose Ql (U) Normal mg/dl Normal [facility] Urine leukocyte esterase det ection by dipstickOrdered By: Alfonso Sylvester on 11-18-2024 Leukocyte esterase Test strip Ql (U) 500 /ul High Negative [facility] Urine pHOrdered By: Alfonso quintanilla on 11-18-2024 pH (U) 6.0 [pH] 5.0 - 8.[address] [facility] Urine sediment bacteria coun t by microscopy (number/high power field)Ordered By: Alfonso Sylvester on 11-18-2024 Bacteria LM.HPF (Urine sed) [#/Area] 1 /[HPF] None Seen [facility] Urine specific gravity measu rementOrdered By: Alfonso Sylvester on 11-18-2024 Specific gravity (U) [Rel density] 1.020 1.002-1.[address] [facility] Urine urobilinogen measureme ntOrdered By: Alfonso Sylvester on 11-18-2024 Urobilinogen Ql (U) Normal mg/dl Normal [facility] Urobilinogen Ql (U)Ordered B y: Alfonso Sylvester on 11-18-2024 Urine Urobilinogen Normal mg/dl Normal [facility] White blood cell countOrdere d By: Alfonso Sylvester on 11-18-2024 Urine WBC 25-50 SEEN /hpf 0-[address] [facility] White blood cell count 25-50 SEEN /hpf 0-[address] [facility] Laboratory - Chemistry and C hemistry - challengeOrdered By: Crissy Rodas on 11-02-2024 Glucose Ql (U) Negative [facility] Laboratory - UrinalysisOrder ed By: Crissy Rodas on 11-02-2024 Protein Ql (U) Negative [facility] Adult Basic Studies Teacher Office Visit Reporton 11-02-2024 Adult Basic Studies Teacher Office Visit Report [facility]'s [address], [address] [place] [address] OFFICE VISIT Date of Service: 11/02/24 MR#: [id number] Acct: [id number] Name: EDEL GALLOWAY Rep #: [id number] : 1995 Provider: Dr. Crissy viramontes MD Age/Sex: 29/F Location: [facility] Status: Signed Intake Vital Signs 03/07/24 09:15 10/05/24 12:36 11/02/24 14:21 11/02/24 14:27 Height 5 ft 4 in 5 ft 4 in 5 ft 4 in 5 ft 4 in Weight: 160 lb 2 oz BMI 27.4 BP 122/85 H Intake Visit Reasons: 15 wk OB Biometrics Technician Required: No Is patient in pain?: No Allergies No Known Allergies Allergy (Verified 11/02/24 14:25) Medications ???Medication ???Instructions ???Recorded ???Confirmed ???Type ondansetron 4 mg disintegrating 4 mg PO Q6H PRN nausea and 5 11/02/24 Rx tablet vomiting #30 tabs multivitamin no.47-iron fum 27 cap PO 09/27/24 11/02/24 History mg-folate no.1 1 mg-dha 300 mg capsule (PNV-DHA) Last Menstrual Period: 07/18/24 Zika: Zika virus screening: Negative : No Have you fallen in the past year?: No PFSH PFSH Medical History Conjunctivitis, right eye Hx of abnormal cervical Pap smear Complete Spotting Heartburn Non-smoker Cholelithiases Frequent headaches Surgical History History of laparoscopic cholecystectomy ( 03/2022) Hx of wisdom tooth extraction Family History Mother Diabetes Hypertension Grandmother Heart disease Social History adopted: No household members: spouse and children number of children: 1 current occupational status: employed 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: Yes (bloodborne pathogens) pets and animals: Yes pets and animals: dog(s) history of recent travel: No ([place], [place]) sexually active: Yes Smoking Status: Never smoker alcohol intake: current alcohol intake frequency: a few times a month Alcohol type: beer and wine details: not while substance use type: does not use well-balanced diet: daily or most days caffeine: No eating out: 1-3 times/week during the past year weight has: increased > 10 lbs what type of physical activity do you participate in: walking frequency: 1-2 times per week duration: 15-30 minutes/day maynor/episcopal: None seatbelt use: always do you feel safe at home: Yes additional social history: - Dave History 3 Elective abortions Hx Para 1 Spontaneous abortions 1 Hx # Term Pregnancies Ectopic pregnancies Hx # Pregnancies Multiple births # of living children 1 Past Pregnancies Del. Date Name GA/Weeks Outcome Route Bth Weight Infant Gen Labor Lgth Anesthesia Del Locatn Provider FOB 11/20/22 miscarriage @5-6 wks 09/24/23 Delainey 40 live - full term 7#9oz Female epidural [facility] Jonah Acosta Delivery Date: 09/24/23 Last Updated by: Macrina TEJADA, vanishing twin, 2nd degree laceration HPI 15 wk OB Details: EDEL GALLOWAY is a 29 year old who presents for routine OB visit. OB Visit JOE Calculator Estimated Delivery Date Method Current WG Current Estimate 04/24/25 LMP (Certain) 15w 2d Other Estimates 04/25/25 Ultrasound #1 15w 1d Expected Delivery Route/Plan Labor Preferences- CB/BF classes: [] labor support person: [] labor intervention preferences: [] pain management options preferred: [] cut cord/dad catch: [] : [] PP control planned: [] discussed possible routes of delivery and associated risks: [] special requests: [] Specific Issue/Plans Covid status: [] Flu vaccine: [] Tdap vaccine: [] Rhogam: [] LARC form signed: [] Problem list reviewed and updated with the most current plan of care details and appropriate orders placed. Relevant counseling for the gestational age provided. Continue routine care and follow up unless otherwise noted in visit notes/problem list details Initial Weight: Not Recorded Date -???-???-???-???-???-? ??-???-???-???-???-??? -???- EGA Weight BP Urine Prot -???-???-???-???-???-? ??-???-???-???-???-??? -???- Glucose FHR FuHt Pres Dilation -???-???-???-???-???-? ??-???-???-???-???-??? -???- Effaced St Visit Note 10/05/24 -???-???-???-???-???-? ??-???-???-???-???-??? -???- 11w 2d 164 lb 120/75 -???-???-???-???-???-? ??-???-???-???-???-??? -???- 169 -???-???-???-???-???-? ??-???-???-???-???-??? -???- [place]- BARNEY is c onsistent with LMP. She declines NIPT[facility] 11[facility] -???-???-???-???-???-? ??-???-???-???-???-?? (more content not included)... Normal [facility] Absolute lymphocyte countOrd ered By: Farrah Lauro on 10-13-2024 Lymphocytes Auto (Unsp spec) [#/Vol] 1.67 10*3/uL 0.83-4.[address] [facility] Absolute neutrophil countOrd ered By: Farrah Lauro on 10-13-2024 Neutrophils (Bld) [#/Vol] 6.4 10*3/uL 2.0-7.[address] [facility] Automated lymphocyte count a s percentage of total leukocytesOrdered By: Farrah Restrepo on 10-13-2024 Lymphocytes/100 WBC Auto (Unsp spec) 18.7 % Low 19-[address] [facility] Basophil percentageOrdered B y: Farrah Lauro on 10-13-2024 Basophils/100 WBC (Bld) 0.4 % 0-1 [facility] CBC W/Diff, Automatedon Absolute Lymph 1.67 X10 3/uL Normal 0.83-4.[address] [facility] Comment on above: Performed By: #### L 509.4005, L3890.6300, L100.0100, L3890.6005, BTS, L509.8000, L3890.6100 ####[facility] [address] [place], [address] Absolute Neut 6.4 X10 3/uL Normal 2.0-7.[address] [facility] Comment on above: Performed By: #### L 509.4005, L3890.6300, L100.0100, L3890.6005, BTS, L509.8000, L3890.6100 ####[facility] [address] [place], [address] Basophils/100 WBC (Bld) 0.4 % Normal 0-1 [facility] Comment on above: Performed By: #### L 509.4005, L3890.6300, L100.0100, L3890.6005, BTS, L509.8000, L3890.6100 ####[facility] [address] [place], [address] Eosinophils/100 WBC (Bld) 1.0 % Normal 0-[address] [facility] Comment on above: Performed By: #### L 509.4005, L3890.6300, L100.0100, L3890.6005, BTS, L509.8000, L3890.6100 ####[facility] [address] [place], [address] Erythrocyte distribution width (RBC) [Ratio] 12.9 % Normal 11.6-14.[address] [facility] Comment on above: Performed By: #### L 509.4005, L3890.6300, L100.0100, L3890.6005, BTS, L509.8000, L3890.6100 ####[facility] [address] [place], [address] Hematocrit (Bld) [Volume fraction] 37.8 % Normal 37-[address] [facility] Comment on above: Performed By: #### L 509.4005, L3890.6300, L100.0100, L3890.6005, BTS, L509.8000, L3890.6100 ####[facility] [address] [place], [address] Hemoglobin (Bld) [Mass/Vol] 12.9 g/dL Normal 12.0-15.[address] [facility] Comment on above: Performed By: #### L 509.4005, L3890.6300, L100.0100, L3890.6005, BTS, L509.8000, L3890.6100 ####[facility] [address] [place], [address] IG% 0.300 Normal 0.0-0.[address] [facility] Comment on above: Result Comment: IG% - Immature Granulocytes (promyelocytes, myelocytes and metamyelocytes) > 1% indicates that a LEFT SHIFT is Present. Performed By: #### L 509.4005, L3890.6300, L100.0100, L3890.6005, BTS, L509.8000, L3890.6100 ####[facility] [address] [place], [address] Lymphocytes/100 WBC (Bld) 18.7 % Low 19-[address] [facility] Comment on above: Performed By: #### L 509.4005, L3890.6300, L100.0100, L3890.6005, BTS, L509.8000, L3890.6100 ####[facility] [address] [place], [address] MCH (RBC) [Entitic mass] 28.9 pg Normal 27.0-32.[address] [facility] Comment on above: Performed By: #### L 509.4005, L3890.6300, L100.0100, L3890.6005, BTS, L509.8000, L3890.6100 ####[facility] [address] [place], [address] MCHC (RBC) [Mass/Vol] 34.1 g/dL Normal 32-36 [facility] Comment on above: Performed By: #### L 509.4005, L3890.6300, L100.0100, L3890.6005, BTS, L509.8000, L3890.6100 ####[facility] [address] [place], [address] MCV (RBC) [Entitic vol] 84.8 fL Normal 81-99 [facility] Comment on above: Performed By: #### L 509.4005, L3890.6300, L100.0100, L3890.6005, BTS, L509.8000, L3890.6100 ####[facility] [address] [place], [address] Monocytes/100 WBC (Bld) 7.6 % Normal 0-10 [facility] Comment on above: Performed By: #### L 509.4005, L3890.6300, L100.0100, L3890.6005, BTS, L509.8000, L3890.6100 ####[facility] [address] [place], [address] Neutrophils/100 WBC (Bld) 72.0 % High 47-[address] [facility] Comment on above: Performed By: #### L 509.4005, L3890.6300, L100.0100, L3890.6005, BTS, L509.8000, L3890.6100 ####[facility] [address] [place], [address] Nucleated RBC (Bld) [#/Vol] 0 10*3/uL Normal 0-[address] [facility] Comment on above: Performed By: #### L 509.4005, L3890.6300, L100.0100, L3890.6005, BTS, L509.8000, L3890.6100 ####[facility] [address] [place], [address] Platelet mean volume (Bld) [Entitic vol] 10.8 fL Normal 6.2-12.[address] [facility] Comment on above: Performed By: #### L 509.4005, L3890.6300, L100.0100, L3890.6005, BTS, L509.8000, L3890.6100 ####[facility] [address] [place], [address] Platelets (Bld) [#/Vol] 257 10*3/uL Normal 150-[address] [facility] Comment on above: Performed By: #### L 509.4005, L3890.6300, L100.0100, L3890.6005, BTS, L509.8000, L3890.6100 ####[facility] [address] [place], [address] RBC (Bld) [#/Vol] 4.46 10*6/uL Normal 4.2-5.4 [facility] Comment on above: Performed By: #### L 509.4005, L3890.6300, L100.0100, L3890.6005, BTS, L509.8000, L3890.6100 ####[facility] [address] [place], [address] RDW SD 39.4 fl Normal 35.1-43.[address] [facility] Comment on above: Performed By: #### L 509.4005, L3890.6300, L100.0100, L3890.6005, BTS, L509.8000, L3890.6100 ####[facility] [address] [place], [address] WBC (Bld) [#/Vol] 8.9 10*3/uL Normal 4.4-11.0 [facility] Comment on above: Performed By: #### L 509.4005, L3890.6300, L100.0100, L3890.6005, BTS, L509.8000, L3890.6100 ####[facility] [address] [place], [address] Eosinophil percentageOrdered By: Farrah Restrepo on 10-13-2024 Eosinophils/100 WBC (Bld) 1.0 % 0-[address] [facility] Erythrocyte distribution wid th ratioOrdered By: Farrah Restrepo on 10-13-2024 Erythrocyte distribution width (RBC) [Ratio] 12.9 % 11.6-14.[address] [facility] Erythrocyte distribution wid th standard deviationOrdered By: Farrah Restrepo on 10-13-2024 Erythrocyte distribution width (RBC) [Entitic vol] 39.4 fL 35.1-43.[address] [facility] Erythrocyte distribution width (RBC) [Ratio] 39.4 fl 35.1-43.[address] [facility] HIV - WCHon 10-13-2024 HIV Non-Reactive Normal Nonreactive [facility] Comment on above: Order Comment: Reaso n for Exam: Performed By: #### L 509.4005, L3890.6300, L100.0100, L3890.6005, BTS, L509.8000, L3890.6100 ####[facility] [address] [place], [place], [id number] HIV 1 and HIV-2 antibody ass ay with HIV-1 p24 antigen detectionOrdered By: Farrah Restrepo on 10-13-2024 HIV 1+2 Ab+HIV1 p24 Ag IA Ql Non-Reactive Nonreactive [facility] HIV 1+2 Ab+HIV1 p24 Ag IA Ql Ordered By: Farrah Restrepo on 10-13-2024 HIV (1&2) Antibody Non-Reactive Nonreactive [facility] Hematocrit Auto (Bld) [Volum e fraction]Ordered By: Farrah Restrepo on 10-13-2024 Hematocrit (Bld) [Volume fraction] 37.8 % 37-[address] [facility] Hemoglobin measurementOrdere d By: Farrah Restrepo on 10-13-2024 Hemoglobin (Bld) [Mass/Vol] 12.9 g/dL 12.0-15.[address] [facility] Hepatitis B Surface Antigeno n 10-13-2024 HEP B Surf Ag Non-Reactive Normal [facility] [place] Comment on above: Order Comment: Reaso n for Exam: Performed By: #### L 509.4005, L3890.6300, L100.0100, L3890.6005, BTS, L509.8000, L3890.6100 ####[facility] [address] [place], [address] Hepatitis B surface antigen detectionOrdered By: Farrah Restrepo on 10-13-2024 Hepatitis B Surface Antigen Non-Reactive Nonreactive [facility] Hepatitis C Antibodyon 10-13 Hepatitis C AB Non-Reactive Normal Nonreactive [facility] Comment on above: Order Comment: Reaso n for Exam: Result Comment: Non Reactive: < 0.8 Equivocal: >/= 0.8 to < 1.0 Reactive: >/= 1.0 The [facility] requires that a reactive/equivocal HCV antibody result be sent out for confirmation. HCV Quant by PCR testing. Performed By: #### L 509.4005, L3890.6300, L100.0100, L3890.6005, BTS, L509.8000, L3890.6100 ####[facility] [address] [place], [address] Hepatitis C virus antibody a ssayOrdered By: Farrah Restrepo on 10-13-2024 Hepatitis C Antibody Non-Reactive Nonreactive [facility] Comment on above: Non Reactive: < 0.8 Equivocal: >/= 0.8 to < 1.0 Reactive: >/= 1.0The CDC requires that a reactive/equivocal HCV antibody result be sent out for confirmation. HCV Quant by PCR testing. Immature granulocytes/100 WB C Auto (Bld)Ordered By: Farrah Restrepo on 10-13-2024 Immature granulocytes/100 WBC (Bld) 0.300 % 0.0-0.[address] [facility] Comment on above: IG% - Immature Granu locytes (promyelocytes, myelocytes and metamyelocytes) > 1% indicates that a LEFT SHIFT is Present. L509.8000on 10-13-2024 Syphilis Abs Non-Reactive Normal [facility] Comment on above: Order Comment: Reaso n for Exam: Performed By: #### L 509.4005, L3890.6300, L100.0100, L3890.6005, BTS, L509.8000, L3890.6100 ####[facility] [address] [place], [address] Lymphocytes Auto (Unsp spec) [#/Vol]Ordered By: Farrah Restrepo on 10-13-2024 Lymphocytes (Bld) [#/Vol] 1.67 10*3/uL 0.83-4.[address] [facility] Lymphocytes/100 WBC Auto (Un sp spec)Ordered By: Farrah Restrepo on 10-13-2024 Lymphocytes/100 WBC (Bld) 18.7 % Low 19-[address] [facility] MCV (mean corpuscular volume ) determinationOrdered By: Farrah Restrepo on 10-13-2024 MCV (RBC) [Entitic vol] 84.8 fL 81-99 [facility] Mean corpuscular hemoglobin (MCH) determinationOrdered By: Farrah Restrepo on 10-13-2024 MCH (RBC) [Entitic mass] 28.9 pg 27.0-32.[address] [facility] Mean corpuscular hemoglobin concentration (MCHC) determinationOrdered By: Farrah Restrepo on 10-13-2024 MCHC (RBC) [Mass/Vol] 34.1 g/dL 32-36 [facility] Mean platelet volume determi nationOrdered By: Farrah Restrepo on 10-13-2024 Platelet mean volume (Bld) [Entitic vol] 10.8 fL 6.2-12.[address] [facility] Monocyte percentageOrdered B y: Farrah Restrepo on 10-13-2024 Monocytes/100 WBC (Bld) 7.6 % 0-10 [facility] Neutrophil percentageOrdered By: Farrah Restrepo on 10-13-2024 Neutrophils/100 WBC (Bld) 72.0 % High 47-[address] [facility] Nucleated red blood cell per centageOrdered By: Farrah Restrepo on 10-13-2024 Nucleated RBC/100 WBC (Bld) [Ratio] 0 % 0-[address] [facility] Platelet countOrdered By: Seb Restrpeo on 10-13-2024 Platelets (Bld) [#/Vol] 257 10*3/uL 150-[address] [facility] RBC Auto (Bld) [#/Vol]Ordere d By: Farrah Restrepo on 10-13-2024 RBC (Bld) [#/Vol] 4.46 10*6/uL 4.2-5.4 [facility] Rubella IgGon 10-13-2024 Rubella IgG Reactive Normal Nonreactive [facility] Comment on above: Order Comment: Reaso n for Exam: Result Comment: Anti body Results Interpretation of Immune Status Non Reactive Presumed Non-Immune Equivocal Equivocal Reactive Presumed Immune Performed By: #### L 509.4005, L3890.6300, L100.0100, L3890.6005, BTS, L509.8000, L3890.6100 ####[facility] [address] [place], [place], [id number] Rubella immune status IgGOrd ered By: Farrah Restrepo on 10-13-2024 Rubella IgG Antibody Reactive Nonreactive [facility] Comment on above: Antibody Results Int erpretation of Immune Status Non Reactive Presumed Non-Immune Equivocal Equivocal Reactive Presumed Immune Serum Treponema species anti body detectionOrdered By: Farrah Restrepo on 10-13-2024 Treponema sp Ab Ql (S) Non-Reactive [facility] Treponema sp Ab Ql (S)Ordere d By: Farrah Restrepo on 10-13-2024 Syphilis Total Antibody Non-Reactive [facility] Type AND Screenon 10-13-2024 ABO and Rh group Nom (Bld) Blood group O Rh(D) positive Normal [facility] Comment on above: Order Comment: PN Performed By: #### L 509.4005, L3890.6300, L100.0100, L3890.6005, BTS, L509.8000, L3890.6100 ####[facility] [address] [place], [place], [id number] White blood cell (WBC) count Ordered By: Farrah Restrepo on 10-13-2024 WBC (Bld) [#/Vol] 8.9 10*3/uL 4.4-11.0 [facility] Chlamydia/GC ASIF aptimaon CHLAMY,NUC ACID Negative Normal Negative [facility] Comment on above: Performed By: #### L 7000.1800, M100.2200 ####[facility] [address] [place], [place], [address] GC BY NUC ACID Negative Normal Negative [facility] Comment on above: Result Comment: Perf ormed at: =G - [facility] [place] [address] [place], [place] [id number] Soup Person: Jennifer Villareal MD, Phone: [phone] Performed By: #### L 0.1800, M100.2200 ####[facility] [address] [place], [address] Urine Cultureon 10-06-2024 URC Culture exhibits no growth. Normal [facility] Comment on above: Performed By: #### L 0.1800, M100.2200 ####[facility] [address] [place], [address] C. trachomatis rRNA ASIF+prob e Ql (Unsp spec)Ordered By: Farrah Restrepo on 10-05-2024 Chlamydia DNA (ASIF) Negative Negative [facility] Chlamydia trachomatis rRNA d etection by probe and target amplification methodOrdered By: Farrah Restrepo on 10-05-2024 C. trachomatis rRNA ASIF+probe Ql (Unsp spec) Negative Negative [facility] Neisseria gonorrhoeae nuclei c acid detection by amplified probe techniqueOrdered By: Farrah Restrepo on 10-05-2024 N. gonorrhoeae DNA ASIF+probe Ql (Unsp spec) Negative Negative [facility] Comment on above: Performed at: =G - [facility] [address] [place], [place] [id number] Director: Jennifer Villareal MD, Phone: [phone] Adult Basic Studies Teacher Office Visit Reporton 10-05-2024 Adult Basic Studies Teacher Office Visit Report [facility]'s [address], [address] [place] [address] OFFICE VISIT Date of Service: 10/05/24 MR#: [id number] Acct: [id number] Name: EDEL GALLOWAY Rep #: [id number] : 1995 Provider: Dr. Farrah Rojas DO Age/Sex: 29/F Location: [facility] Status: Signed Intake Vital Signs 03/07/24 09:15 10/05/24 12:36 10/05/24 12:36 Height 5 ft 4 in 5 ft 4 in 5 ft 4 in Weight: 164 lb BMI 28.1 BP 120/75 Intake Visit Reasons: New OB, LMP 07/18, JOE 04/24 Biometrics Technician Required: No Is patient in pain?: No Allergies No Known Allergies Allergy (Verified 10/05/24 12:36) Medications ???Medication ???Instructions ???Recorded ???Confirmed ???Type ondansetron 4 mg disintegrating 4 mg PO Q6H PRN nausea and 09/08/24 10/05/24 Rx tablet vomiting #30 tabs multivitamin no.47-iron fum 27 cap PO 09/27/24 09/27/24 History mg-folate no.1 1 mg-dha 300 mg capsule (PNV-DHA) Last Menstrual Period: 07/18/24 Zika: Zika virus screening: Negative : No PFSH PFSH Medical History Conjunctivitis, right eye Hx of abnormal cervical Pap smear Complete Spotting Heartburn Non-smoker Cholelithiases Frequent headaches Surgical History History of laparoscopic cholecystectomy ( 03/2022) Hx of wisdom tooth extraction Family History Mother Diabetes Hypertension Grandmother Heart disease Social History adopted: No household members: spouse and children number of children: 1 current occupational status: employed 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: Yes (bloodborne pathogens) pets and animals: Yes pets and animals: dog(s) history of recent travel: No ([place], [place]) sexually active: Yes Smoking Status: Never smoker alcohol intake: current alcohol intake frequency: a few times a month Alcohol type: beer and wine details: not while substance use type: does not use well-balanced diet: daily or most days caffeine: No eating out: 1-3 times/week during the past year weight has: increased > 10 lbs what type of physical activity do you participate in: walking frequency: 1-2 times per week duration: 15-30 minutes/day maynor/episcopal: None seatbelt use: always do you feel safe at home: Yes additional social history: - Dave History 3 Elective abortions Hx Para 1 Spontaneous abortions 1 Hx # Term Pregnancies Ectopic pregnancies Hx # Pregnancies Multiple births # of living children 1 Past Pregnancies Del. Date Name GA/Weeks Outcome Route Bth Weight Infant Gen Labor Lgth Anesthesia Del Locatn Provider FOB 11/20/22 miscarriage @5-6 wks 09/24/23 Miros[place]ava 40 live - full term 7#9oz Female epidural [facility] D faustino. Adrianna Acosta Delivery Date: 09/24/23 Last Updated by: Macrina TEJADA, vanishing twin, 2nd degree laceration HPI New OB, LMP 07/18, JOE 04/24 Details: EDEL GALLOWAY is a 29 year old who presents for New OB visit. OB Visit JOE Calculator Estimated Delivery Date Method Current WG Current Estimate 04/24/25 LMP (Certain) 11w 2d Comments: HIV: Urine Culture: Sequential Screen: NIPT Screen: Estimated Due Date: 04/24/25 Expected Delivery Route/Plan Labor Preferences- CB/BF classes: [] labor support person: [] labor intervention preferences: [] pain management options preferred: [] cut cord/dad catch: [] : [] PP control planned: [] discussed possible routes of delivery and associated risks: [] special requests: [] Specific Issue/Plans Covid status: [] Flu vaccine: [] Tdap vaccine: [] Rhogam: [] LARC form signed: [] Problem list reviewed and updated with the most current plan of care details and appropriate orders placed. Relevant counseling for the gestational age provided. Continue routine care and follow up unless otherwise noted in visit notes/problem list details Initial Weight: Not Recorded Date -???-???-???-???-???-? ??-???-???-???-???-??? -???- EGA Weight BP Urine Prot -???-???-???-???-???-? ??-???-???-???-???-??? -???- Glucose FHR FuHt Pres Dilation -???-???-???-???-???-? ??-???-???-???-???-??? -???- Effaced St Visit Note 10/05/24 -???-???-???-???-???-? ??-???-???-???-???-??? -???- 11w 2d 164 lb 120/75 -???-???-???-???-???-? ??-???-???-???-???-??? -???- 169 -???-???-???-???-???-? ??-???-???-???-???-??? -???- [place]- BARNEY is c onsistent with LMP. She declines NIPT. wants to do anatomy scan in [place]. Menstrual History Last Menst (more content not included)... Normal [facility] Urine cultureOrdered By: Karissa Restrepo on 10-05-2024 Bacteria identified Cx Nom (U) Culture exhibits no growth. [facility] Absolute lymphocyte countOrd ered By: Crissy Rodas on 09-24-2023 Lymphocytes Auto (Unsp spec) [#/Vol] 1.60 10*3/uL 0.83-4.[address] [facility] Automated lymphocyte count a s percentage of total leukocytesOrdered By: Crissy Rodas on 09-24-2023 Lymphocytes/100 WBC Auto (Unsp spec) 10.3 % 19-[address] [facility] Basophil percentageOrdered B y: Crissy Rodas on 09-24-2023 Basophils/100 WBC (Bld) 0.3 % 0-1 [facility] Eosinophils/100 WBC (Bld) 0.2 % 0-[address] [facility] Hemoglobin (Bld) [Mass/Vol] 11.4 g/dL 12.0-15.[address] [facility] Monocytes/100 WBC (Bld) 7.4 % 0-10 [facility] Neutrophils (Bld) [#/Vol] 12.7 10*3/uL 2.0-7.[address] [facility] Neutrophils/100 WBC (Bld) 81.2 % 47-[address] [facility] WBC (Bld) [#/Vol] 15.6 10*3/uL 4.4-11.0 [facility] Blood manual differential co mment interpretation (narrative result)Ordered By: Crissy Rodas on 09-24-2023 Manual differential comment Mauro (Bld) [Interp] SCANNED [facility] Determination of erythrocyte mean corpuscular volume (MCV)Ordered By: Crissy Rodas on 09-24-2023 MCV (RBC) [Entitic vol] 87.6 fL 81-99 [facility] Erythrocyte distribution wid th ratioOrdered By: Crissy Rodas on 09-24-2023 Erythrocyte distribution width (RBC) [Ratio] 12.6 % 11.6-14.[address] [facility] Erythrocyte distribution wid th standard deviationOrdered By: Crissy Rodas on 09-24-2023 Erythrocyte distribution width (RBC) [Entitic vol] 40.6 fL 35.1-43.[address] [facility] Hematocrit Auto (Bld) [Volum e fraction]Ordered By: Crissy Rodas on 09-24-2023 Hematocrit (Bld) [Volume fraction] 34.7 % 37-[address] [facility] Immature granulocytes/100 WB C Auto (Bld)Ordered By: Crissy Rodas on 09-24-2023 Immature granulocytes/100 WBC (Bld) 0.600 % 0.0-0.[address] [facility] Comment on above: IG% - Immature Granu locytes (promyelocytes, myelocytes and metamyelocytes) > 1% indicates that a LEFT SHIFT is Present. Laboratory - Hematology and Cell countsOrdered By: Crissy Rodas on 09-24-2023 MCH (RBC) [Entitic mass] 28.8 pg 27.0-32.[address] [facility] MCHC (RBC) [Mass/Vol] 32.9 g/dL 32-36 [facility] Nucleated RBC/100 WBC (Bld) [Ratio] 0 % 0-[address] [facility] Platelets (Bld) [#/Vol] 168 10*3/uL 150-[address] [facility] Platelet mean volume Jayy-Ec ker (Bld) [Entitic vol]Ordered By: Crissy Rodas on 09-24-2023 Platelet mean volume (Bld) [Entitic vol] 13.2 fL 6.2-12.[address] [facility] RBC Auto (Bld) [#/Vol]Ordere d By: Crissy Rodas on 09-24-2023 RBC (Bld) [#/Vol] 3.96 10*6/uL 4.2-5.4 [facility] Serum Treponema species anti body detectionOrdered By: Crissy Rodas on 09-24-2023 Treponema sp Ab Ql (S) Non-Reactive [facility] Laboratory - Chemistry and C hemistry - challengeon 09-18-2023 Glucose Ql (U) Negative [facility] Laboratory - Urinalysison Protein Ql (U) Negative [facility] Laboratory - Chemistry and C hemistry - challengeon 09-10-2023 Glucose Ql (U) Negative [facility] Laboratory - Urinalysison Protein Ql (U) Negative [facility] Laboratory - Chemistry and C hemistry - challengeon 09-02-2023 Glucose Ql (U) Negative [facility] Laboratory - Urinalysison Protein Ql (U) Negative [facility] No Panel InformationOrdered By: Tere Osuna on 09-02-2023 Group B Streptococcus Culture Group B Beta Streptococcus is not isolated. [facility] Laboratory - Chemistry and C hemistry - challengeon 08-26-2023 Glucose Ql (U) Negative [facility] Laboratory - Urinalysison Protein Ql (U) Negative [facility] Laboratory - Chemistry and C hemistry - challengeon 08-10-2023 Glucose Ql (U) Negative [facility] Laboratory - Urinalysison Protein Ql (U) Negative [facility] Laboratory - Chemistry and C hemistry - challengeon 07-23-2023 Glucose Ql (U) Negative [facility] Laboratory - Urinalysison Protein Ql (U) Negative [facility] Quantitative serum or plasma 3 hour gestational glucose tolerance panelOrdered By: Tere Osuna on 07-20-2023 Glucose tolerance 3 hours gestational panel See comment [facility] Comment on above: FASTING 90 Col: 07/08 11/27 0959GLUCOSE TOLERANCE TEST FOR Reference Interval GESTATIONAL DIABETES Fasting <105 mg/dL 1 hour <190 mg/dl 2 hour <165 mg/dl 3 hour <145 mg/dl 1 HR GLU 165 Col: 07/20/23 1102 2 HR GLU 149 Col: 07/20/23 1205 3 HR GLU 152 H Col: 07/20/23 1305 Laboratory - Chemistry and C hemistry - challengeon 07-08-2023 Glucose Ql (U) Negative [facility] Laboratory - Urinalysison Protein Ql (U) Negative [facility] Absolute lymphocyte countOrd ered By: Tere Osuna on 07-04-2023 Lymphocytes Auto (Unsp spec) [#/Vol] 1.46 10*3/uL 0.83-4.[address] [facility] Basophil percentageOrdered B y: Tere Osuna on 07-04-2023 Basophils/100 WBC (Bld) 0.4 % 0-1 [facility] Eosinophils/100 WBC (Bld) 0.8 % 0-[address] [facility] Neutrophils (Bld) [#/Vol] 11.7 10*3/uL 2.0-7.[address] [facility] Neutrophils/100 WBC (Bld) 83.0 % 47-[address] [facility] WBC (Bld) [#/Vol] 14.1 10*3/uL 4.4-11.0 [facility] Blood erythrocytes count (nu mber/volume)Ordered By: Tere Osuna on 07-04-2023 RBC (Bld) [#/Vol] 3.78 10*6/uL 4.2-5.4 [facility] Blood hemoglobin measurement (mass/volume)Ordered By: Tere Osuna on 07-04-2023 Hemoglobin (Bld) [Mass/Vol] 11.5 g/dL 12.0-15.[address] [facility] Blood lymphocytes/100 leukoc ytesOrdered By: Tere Osuna on 07-04-2023 Lymphocytes/100 WBC (Bld) 10.4 % 19-[address] [facility] Blood monocytes/100 leukocyt esOrdered By: Tere Osuna on 07-04-2023 Monocytes/100 WBC (Bld) 4.8 % 0-10 [facility] Blood platelet mean volumeOr dered By: Tere Osuna on 07-04-2023 Platelet mean volume (Bld) [Entitic vol] 11.0 fL 6.2-12.[address] [facility] Determination of erythrocyte mean corpuscular volume (MCV)Ordered By: Tere Osuna on 07-04-2023 MCV (RBC) [Entitic vol] 91.5 fL 81-99 [facility] Gestational diabetes screen 1-hour screen with 50g oral glucose loadOrdered By: Tere Osuna on 07-04-2023 Glucose 1 Hr post 50 g glucose PO [Mass/Vol] 161 mg/dL 70-[address] [facility] HIV 1 and HIV-2 antibody ass ay with HIV-1 p24 antigen detectionOrdered By: Tere Osuna on 07-04-2023 HIV 1+2 Ab+HIV1 p24 Ag IA Ql Non-Reactive Nonreactive [facility] Hematocrit Auto (Bld) [Volum e fraction]Ordered By: Tere Osuna on 07-04-2023 Hematocrit (Bld) [Volume fraction] 34.6 % 37-[address] [facility] Laboratory - Hematology and Cell countsOrdered By: Tere Osuna on 07-04-2023 Erythrocyte distribution width (RBC) [Entitic vol] 41.9 fL 35.1-43.[address] [facility] Erythrocyte distribution width (RBC) [Ratio] 12.6 % 11.6-14.[address] [facility] Immature granulocytes/100 WBC (Bld) 0.600 % 0.0-0.[address] [facility] Comment on above: IG% - Immature Granu locytes (promyelocytes, myelocytes and metamyelocytes) > 1% indicates that a LEFT SHIFT is Present. MCH (RBC) [Entitic mass] 30.4 pg 27.0-32.[address] [facility] Nucleated RBC/100 [facility] (Bld) [[facility]] 0 [facility] [[facility]/Vol]Or dered By: Tere Osuna on 07-04-2023 MCHC (RBC) [Mass/Vol] 33.2 g/dL 32-36 [facility] Platelets bldOrdered By: Judith Osuna on 07-04-2023 Platelets (Bld) [#/Vol] 207 10*3/uL 150-[address] [facility] Serum Treponema species anti body detectionOrdered By: Tere Osuna on 07-04-2023 Treponema sp Ab Ql (S) Non-Reactive [facility] Culture, urineOrdered By: Lissa Osuna on 06-10-2023 Bacteria identified Cx Nom (U) Culture exhibits no growth. [facility] Bacteria identified Cx Nom (U) Culture exhibits no growth. [facility] Laboratory - Chemistry and C hemistry - challengeon 06-10-2023 Bilirubin Ql (U) Negative [facility] Glucose Ql (U) Negative [facility] Ketones Ql (U) Negative [facility] pH (U) 7.0 [pH] [facility] Specific gravity (U) [Rel density] 1.[address] [facility] Urobilinogen (U) [Mass/Vol] 0.8619394 mg/dL [facility] Laboratory - Hematology and Cell countson 06-10-2023 Hemoglobin Ql (U) Negative [facility] Laboratory - Specimen inform ationon 06-10-2023 Clarity (U) Cloudy [facility] Color (U) [place] [facility] Laboratory - Urinalysison Nitrite Ql (U) Negative [facility] Protein Ql (U) Negative [facility] No Panel Informationon 06-10 Urine Leukocytes Positive [facility] Urine Non-Hemolyzed Blood [facility] Laboratory - Chemistry and C hemistry - challengeon 05-13-2023 Glucose Ql (U) Negative [facility] Laboratory - Urinalysison Protein Ql (U) Negative [facility] No Panel InformationOrdered By: Ida Ye on 05-13-2023 Miscellaneous Test Comment MAILED SPECIMEN [facility] Laboratory - Chemistry and C hemistry - challengeon 04-14-2023 Glucose Ql (U) Negative [facility] Laboratory - Urinalysison Protein Ql (U) Negative [facility] Laboratory - Chemistry and C hemistry - challengeon 03-16-2023 Glucose Ql (U) Negative [facility] Laboratory - Urinalysison Protein Ql (U) Negative [facility] Absolute lymphocyte countOrd ered By: Farrah Restrepo on 03-12-2023 Lymphocytes Auto (Unsp spec) [#/Vol] 1.80 10*3/uL 0.83-4.[address] [facility] Basophil percentageOrdered B y: Farrah Restrepo on 03-12-2023 Basophils/100 WBC (Bld) 0.5 % 0-1 [facility] Eosinophils/100 WBC (Bld) 1.1 % 0-[address] [facility] Neutrophils (Bld) [#/Vol] 8.3 10*3/uL 2.0-7.[address] [facility] Neutrophils/100 WBC (Bld) 74.4 % 47-[address] [facility] WBC (Bld) [#/Vol] 11.1 10*3/uL 4.4-11.0 [facility] Blood erythrocytes count (nu mber/volume)Ordered By: Farrah Restrepo on 03-12-2023 RBC (Bld) [#/Vol] 4.33 10*6/uL 4.2-5.4 [facility] Blood hemoglobin measurement (mass/volume)Ordered By: Farrah Restrepo on 03-12-2023 Hemoglobin (Bld) [Mass/Vol] 12.9 g/dL 12.0-15.[address] [facility] Blood lymphocytes/100 leukoc ytesOrdered By: Farrah Restrepo on 03-12-2023 Lymphocytes/100 WBC (Bld) 16.2 % 19-[address] [facility] Blood monocytes/100 leukocyt esOrdered By: Farrah Restrepo on 03-12-2023 Monocytes/100 WBC (Bld) 7.3 % 0-10 [facility] Blood platelet mean volumeOr dered By: Farrah Restrepo on 03-12-2023 Platelet mean volume (Bld) [Entitic vol] 10.8 fL 6.2-12.[address] [facility] Determination of erythrocyte mean corpuscular volume (MCV)Ordered By: Farrah Restrepo on 03-12-2023 MCV (RBC) [Entitic vol] 88.7 fL 81-99 [facility] HIV 1 and HIV-2 antibody ass ay with HIV-1 p24 antigen detectionOrdered By: Farrah Restrepo on 03-12-2023 HIV 1+2 Ab+HIV1 p24 Ag IA Ql Non-Reactive Nonreactive [facility] Hematocrit Auto (Bld) [Volum e fraction]Ordered By: Farrah Restrepo on 03-12-2023 Hematocrit (Bld) [Volume fraction] 38.4 % 37-[address] [facility] Laboratory - Hematology and Cell countsOrdered By: Farrah Restrepo on 03-12-2023 Erythrocyte distribution width (RBC) [Entitic vol] 39.8 fL 35.1-43.[address] [facility] Erythrocyte distribution width (RBC) [Ratio] 12.2 % 11.6-14.[address] [facility] Immature granulocytes/100 WBC (Bld) 0.500 % 0.0-0.[address] [facility] Comment on above: IG% - Immature Granu locytes (promyelocytes, myelocytes and metamyelocytes) > 1% indicates that a LEFT SHIFT is Present. MCH (RBC) [Entitic mass] 29.8 pg 27.0-32.[address] [facility] Nucleated RBC/100 WBC (Bld) [Ratio] 0 % 0-[address] [facility] MCHC Auto (RBC) [Mass/Vol]Or dered By: Farrah Restrepo on 03-12-2023 MCHC (RBC) [Mass/Vol] 33.6 g/dL 32-36 [facility] No Panel InformationOrdered By: Farrah Restrepo on 03-12-2023 Hepatitis B Surface Antigen Non-Reactive Nonreactive [facility] Hepatitis C Antibody Non-Reactive Nonreactive [facility] Comment on above: Non Reactive: < 0.8 Equivocal: >/= 0.8 to < 1.0 Reactive: >/= 1.0The CDC recommends that a reactive/equivocal HCV antibody result be followed up by the HCV Nucleic Acid Amplificationtest (334795) Rubella IgG Antibody Reactive Nonreactive [facility] Comment on above: Antibody Results Int erpretation of Immune Status Non Reactive Presumed Non-Immune Equivocal Equivocal Reactive Presumed Immune Platelets bldOrdered By: Karissa Restrepo on 03-12-2023 Platelets (Bld) [#/Vol] 262 10*3/uL 150-[address] [facility] Serum Treponema species anti body detectionOrdered By: Farrah Restrepo on 03-12-2023 Treponema sp Ab Ql (S) Non-Reactive [facility] Culture, urineOrdered By: Dr Janet Restrepo on 02-21-2023 Bacteria identified Cx Nom (U) Culture exhibits no growth. [facility] Cervical or vagninal specime n microscopic examination by cytology stain (reported asOrdered By: Dr. Restrepo on 02-19-2023 Cytology report Cyto stain Doc (Cvx/Vag) Comment . [facility] Comment on above: The Pap smear is a s creening test designed to aid in thedetection of premalignant and malignant conditions of theuterine cervix. It is not a diagnostic procedure andshould not be used as the sole means of detecting cervicalcancer. Both false-positive and false-negative reports dooccur. Chlamydia trachomatis rRNA d etection by probe and target amplification methodOrdered By: Dr. Restrepo on 02-19-2023 C. trachomatis rRNA ASIF+probe Ql (Unsp spec) Negative Negative [facility] Culture, urineOrdered By: Seb Restrepo on 02-19-2023 Bacteria identified Cx Nom (U) Culture exhibits no growth. [facility] Laboratory - CytologyOrdered By: Dr. Restrepo on 02-19-2023 [facility] Cyto stain Nom (Cvx/Vag) [ID] Comment . [facility] Comment on above: Vita hendrickson, Kitchen Mechanic (ASCP) Laboratory - Microbiology an d Antimicrobial susceptibilityOrdered By: Dr. Restrepo on 02-19-2023 N. gonorrhoeae DNA ASIF+probe Ql (Unsp spec) Negative Negative [facility] Comment on above: Performed at: =[address] [id number] Director: Jennifer Villareal MD, Phone: [phone] Laboratory - Miscellaneous t estsOrdered By: Dr. Restrepo on 02-19-2023 Service comment (Unsp spec) [Interp] Comment . [facility] Comment on above: This liquid based Th inPrep(R) pap test was screened withthe use of an image guided system. Service comment (Unsp spec) [Interp] . . [facility] No Panel InformationOrdered By: Dr. Restrepo on 02-19-2023 Human Papillomavirus Screen Comment . [facility] Comment on above: The HPV DNA reflex c karthik were not met with this specimenresult therefore, no HPV testing was performed.Performed at: [address] [id number] Director: Jennifer Villareal MD, Phone: [phone] Pathology report final diagnosis Narrative Comment . [facility] Comment on above: NEGATIVE FOR INTRAEP ITHELIAL LESION OR MALIGNANCY. Serum or plasma choriogonado tropin detectionOrdered By: Tere Osuna on 01-22-2023 HCG ( test) Ql 2033 mIU/mL <[address] [facility] Comment on above: hCG levels with Gest ational AgeGestational Age hCG mIU/mL (IU/L)0.2 - 1 week 5 - 501-2 weeks 50 - 5002-3 weeks 100 - 44891-0 weeks 500 - 382036-1 weeks 1000 - 987204-1 weeks 49889 - 100,0006-8 weeks 82227 - 200,0002-3 months 60774 - 100,000 Serum or plasma choriogonado tropin detectionOrdered By: Tere Osuna on 01-20-2023 HCG ( test) Ql 977 mIU/mL <4 [facility] Comment on above: hCG levels with Gest ational AgeGestational Age hCG mIU/mL (IU/L)0.2 - 1 week 5 - 501-2 weeks 50 - 5002-3 weeks 100 - 18151-8 weeks 500 - 354486-1 weeks 1000 - 402899-8 weeks 31767 - 100,0006-8 weeks 15858 - 200,0002-3 months 65176 - 100,000 Serum or plasma choriogonado tropin detectionOrdered By: Dr. Rodas on 11-19-2022 HCG ( test) Ql 2 mIU/mL <4 [facility] Comment on above: hCG levels with Gest ational AgeGestational Age hCG mIU/mL (IU/L)0.2 - 1 week 5 - 501-2 weeks 50 - 5002-3 weeks 100 - 91063-8 weeks 500 - 376481-1 weeks 1000 - 310321-4 weeks 93840 - 100,0006-8 weeks 78789 - 200,0002-3 months 82426 - 100,000 Serum or plasma choriogonado tropin detectionOrdered By: Dr. Rodas on 11-17-2022 HCG ( test) Ql 13 mIU/mL <4 [facility] Comment on above: hCG levels with Gest ational AgeGestational Age hCG mIU/mL (IU/L)0.2 - 1 week 5 - 501-2 weeks 50 - 5002-3 weeks 100 - 18451-2 weeks 500 - 303341-5 weeks 1000 - 123759-6 weeks 74682 - 100,0006-8 weeks 33662 - 200,0002-3 months 77065 - 100,000 Laboratory - Chemistry and C hemistry - challengeon 2022 HCG ( test) Ql (U) Negative [facility] Work Phone: Comment on above: Very dilute urine sp ecimens, as indicated by a low specificgravity, may not contain physician representative levels of hCG. If is still suspected, a first morning urinespecimen should be collected 48 hours later and tested. Absolute lymphocyte counton 03-24-2022 Lymphocytes Auto (Unsp spec) [#/Vol] 2.12 10*3/uL 0.83-4.[address] [facility] Work Phone: Basophil percentageon 2021 Basophil percentage 0 SEEN /hpf 0-5 [facility] Work Phone: Basophils/100 WBC (Bld) 0.8 % 0-1 [facility] Work Phone: Bilirubin [Mass/Vol] 0.60 mg/dL 0.20-1.00 [facility] Work Phone: Comment on above: For patients on eltr ombopag therapy, use of Dimension [place] TBIL is not recommended. Chloride [Moles/Vol] 105 mmol/L 98-107 [facility] Work Phone: Eosinophils/100 WBC (Bld) 3.2 % 0-[address] [facility] Work Phone: Glucose [Mass/Vol] 108 mg/dL 74-106 [facility] Work Phone: Comment on above: Fasting Glucose resu lt from 100 to 125 mg/dL suggests IMPAIRED HOMEOSTASIS per A.D.A. criteria. Neutrophils (Bld) [#/Vol] 4.7 10*3/uL 2.0-7.[address] [facility] Work Phone: Neutrophils/100 WBC (Bld) 59.9 % 47-[address] [facility] Work Phone: Potassium [Moles/Vol] 3.8 mmol/L 3.5-5.1 [facility] Work Phone: Protein [Mass/Vol] 7.3 g/dL 6.4-8.2 [facility] Work Phone: Sodium [Moles/Vol] 138 mmol/L 136-145 [facility] Work Phone: WBC (Bld) [#/Vol] 7.8 10*3/uL 4.4-11.0 [facility] Work Phone: Bilirubin Test strip Ql (U)o n 03-24-2022 Bilirubin Ql (U) Negative Negative [facility] Work Phone: [phone] Blood erythrocytes count (nu mber/volume)on 03-24-2022 RBC (Bld) [#/Vol] 4.42 10*6/uL 4.2-5.4 [facility] Work Phone: Blood hemoglobin measurement (mass/volume)on 03-24-2022 Hemoglobin (Bld) [Mass/Vol] 13.3 g/dL 12.0-15.[address] [facility] Work Phone: Blood lymphocytes/100 leukoc yteson 03-24-2022 Lymphocytes/100 WBC (Bld) 27.3 % 19-[address] [facility] Work Phone: Blood monocytes/100 leukocyt eson 03-24-2022 Monocytes/100 WBC (Bld) 8.5 % 0-10 [facility] Work Phone: [phone] Blood platelet mean volumeon 03-24-2022 Platelet mean volume (Bld) [Entitic vol] 10.6 fL 6.2-12.[address] [facility] Work Phone: [phone] Determination of erythrocyte mean corpuscular volume (MCV)on 03-24-2022 MCV (RBC) [Entitic vol] 88.0 fL 81-99 [facility] Work Phone: [phone] Direct bilirubinon Bilirubin.direct [Mass/Vol] 0.15 mg/dL 0.00-0.[address] [facility] Work Phone: [phone] Hematocrit Auto (Bld) [Volum e fraction]on 03-24-2022 Hematocrit (Bld) [Volume fraction] 38.9 % 37-[address] [facility] Work Phone: [phone] Ketones Test strip Ql (U)on 03-24-2022 Ketones Ql (U) Negative Negative [facility] Work Phone: [phone] Laboratory - Chemistry and C hemistry - challengeon 03-24-2022 HCG ( test) Ql (U) Negative [facility] Work Phone: [phone] Comment on above: Very dilute urine sp ecimens, as indicated by a low specificgravity, may not contain physician representative levels of hCG. If is still suspected, a first morning urinespecimen should be collected 48 hours later and tested. ALP [Catalytic activity/Vol] 63 U/L 45-[address] [facility] Work Phone: [phone] ALT [Catalytic activity/Vol] 23 U/L 13-[address] [facility] Work Phone: [phone] CO2 [Moles/Vol] 27.0 mmol/L 21.0-32.[address] [facility] Work Phone: [phone] Globulin (S) [Mass/Vol] 3.7 g/dL 2.2-4.2 [facility] Work Phone: [phone] Lipase [Catalytic activity/Vol] 128 U/L 73-[address] [facility] Work Phone: [phone] Urea nitrogen/Creatinine [Mass ratio] 17.6 mg/mg 10-[address] [facility] Work Phone: [phone] Laboratory - Hematology and Cell countson 03-24-2022 Erythrocyte distribution width (RBC) [Entitic vol] 40.8 fL 35.1-43.[address] [facility] Work Phone: [phone] Erythrocyte distribution width (RBC) [Ratio] 12.5 % 11.6-14.[address] [facility] Work Phone: [phone] Immature granulocytes/100 WBC (Bld) 0.300 % 0.0-0.[address] [facility] Work Phone: [phone] Comment on above: IG% - Immature Granu locytes (promyelocytes, myelocytes and metamyelocytes) > 1% indicates that a LEFT SHIFT is Present. MCH (RBC) [Entitic mass] 30.1 pg 27.0-32.[address] [facility] Work Phone: [phone] Nucleated RBC/100 WBC (Bld) [Ratio] 0 % 0-[address] [facility] Work Phone: [phone] MCHC Auto (RBC) [Mass/Vol]on 03-24-2022 MCHC (RBC) [Mass/Vol] 34.2 g/dL 32-36 [facility] Work Phone: [phone] Mucus LM Ql (Urine sed)on Mucus Ql (Urine sed) 0 SEEN /hpf [facility] Work Phone: [phone] Nitrite Test strip Ql (U)on 03-24-2022 Nitrite Ql (U) Negative Negative [facility] Work Phone: [phone] No Panel Informationon 03-24 Estimated Creatinine Clearance Calc 111.82 ml/min [facility] [facility] Work Phone: [phone] Estimated GFR (MDRD) Amer 133 mL/min >[address] [facility] Work Phone: [phone] Comment on above: GFR Calc Estimated GFR (MDRD) Non-Af Amer 110 mL/min >[address] [facility] Work Phone: Comment on above: Non- GFR Calc Platelets bldon 03-24-2022 Platelets (Bld) [#/Vol] 263 10*3/uL 150-[address] [facility] Work Phone: Protein Test strip Ql (U)on 03-24-2022 Protein Ql (U) Negative Negative [facility] Work Phone: [phone] Serum or plasma albumin arnel urement (mass/volume)on 03-24-2022 Albumin [Mass/Vol] 3.6 g/dL 3.2-5.0 [facility] Work Phone: Serum or plasma calcium arnel urement (mass/volume)on 03-24-2022 Calcium [Mass/Vol] 9.2 mg/dL 8.5-10.1 [facility] Work Phone: Serum or plasma creatinine m easurement (mass/volume)on 03-24-2022 Creatinine [Mass/Vol] 0.68 mg/dL 0.55-1.02 [facility] Work Phone: Comment on above: The validity of the calculated GFR & GFRAA in patients over 70 years has not been determined. Clinical correlation is essential. Serum or plasma urea nitroge n measurement (mass/volume)on 03-24-2022 Urea nitrogen [Mass/Vol] 12 mg/dL 03-[address] [facility] Work Phone: Squamous epithelial cells de tection in urine sediment by light microscopyon 03-24-2022 Epithelial cells.squamous LM Ql (Urine sed) 0 SEEN /hpf 5-[address] [facility] Work Phone: Thin prep Papanicolaou smear with manual screeningon 03-24-2022 Thin prep Papanicolaou smear with manual screening 14 U/L 15-[address] [facility] Work Phone: [phone] Thin prep Papanicolaou smear with manual screening 6 5-[address] [facility] Work Phone: Urine blood detectionon 03-07 RBC Ql (U) Negative Negative [facility] Work Phone: RBC Ql (U) 0 SEEN /hpf 0-[address] [facility] Work Phone: Urine clarityon 03-24-2022 Clarity (U) Clear Clear [facility] Work Phone: Urine color determinationon 03-24-2022 Color (U) Yellow Yellow [facility] Work Phone: Urine glucose detectionon Glucose Ql (U) Normal mg/dl Normal [facility] Work Phone: Urine leukocyte esterase det ection by dipstickon 03-24-2022 Leukocyte esterase Test strip Ql (U) Negative Negative [facility] Work Phone: Urine pHon 03-24-2022 pH (U) 6.0 [pH] 5.0 - 8.[address] [facility] Work Phone: Urine sediment bacteria coun t by microscopy (number/high power field)on 03-24-2022 Bacteria LM.HPF (Urine sed) [#/Area] 2 /[HPF] None Seen [facility] Work Phone: Urine specific gravity measu rementon 03-24-2022 Specific gravity (U) [Rel density] 1.015 1.002-1.[address] [facility] Work Phone: Urobilinogen Auto test strip Ql (U)on 03-24-2022 Urobilinogen Ql (U) Normal mg/dl Normal [facility] Work Phone: Show Card Writer Cytology Reporton 2019 Show Card Writer Cytology Report . Pathology Reports Accession: Collected Date/Time: Received Date/Time: Pathologist: [id number] 04/16/2020 08:22 EDT 04/18/2020 18:00 EDT Show Card Writer Cytology Report SPECIMEN: Specimen Description: Liquid Prep Reflex ASCUS+ Specimen: Cervical/Endocervical Screening or Diagnostic: Screening RELEVANT HISTORY: LMP: unknown [id number] SPECIMEN ADEQUACY: SATISFACTORY FOR EVALUATION ENDOCERVICAL/TRANSFORM ATIONAL ZONE COMPONENT ABSENT/INSUFFICIENT INTERPRETATION/RESULTS : NEGATIVE FOR INTRAEPITHELIAL LESION OR MALIGNANCY COMMENT: This Pap Test was successfully processed and evaluated with the assistance of the [employer] ThinPrep Test Imaging System. Electronically Signed by Pathology report verified by [facility] Screened by: KK Electronically signed by Kira GUTHRIE (ASC) Sign-Out Date: 05/01/2020 10:21 Performing Lab: [facility], [address] [place] [address] Disclaimer The Pap test is a screening test for cervical cancer. As evidenced by published data, it is subject to both inherent false negative and false positive results. Your patient's results should be interpreted in context with pertinent clinical history including gynecological examination. Normal [facility] ([place]) Comment on above: Performed By: #### G YCR #### [place] [address] HEP B SURF AB QUANT [QUEST]o n 06-27-2018 HEP B SURF AB QUANT [QUEST] Normal [facility] Comment on above: Result Comment: _HEP B SURF AB QUANT_HEPATITIS B SURFACE ANTIBODY IMMUNITY, (QUANT)Reported: 06/26/2018 20:35 Status=F TEST RESULT FLAG RANGE UNITS HEP B SURF AB IMMUNITY,QN >1000 >=10 mIU/mL 06/26/18.2046.rfl.COMPLETE.AMRR .5193-8PATIENT HAS IMMUNITY TO HEPATITIS B VIRUS.For more information on this test, go to:http://education.[employer]/faq/JDA583Ieio Performed by Next[employer] SoftwareMattie,[employer] [facility]ilda [facility],[address] [place] [address] [id number] Avila M.D., Ph.D., Director of [phone], CLIA [id number] Performed By: #### 2 [id number] ####[facility],[address] [place] [address] NICOTINE AND METABOLITE URIN E [QUEST]on 10-13-2017 NICOTINE AND METABOLITE URINE [QUEST] Normal [facility] Comment on above: Result Comment: _NIC OTINE AND METABOLITE,URINE_NICOTINE AND COTININE, LC/MS/MS, URINEReported: 10/13/2017 12:58 Status=F TEST RESULT FLAG RANGE UNITS NICOTINE, URINE <2 ng/mL 10/13/17.1310.rfl.COMPLETE.AMRR .3854-7COTININE, URINE <2 ng/mL 10/13/17.1310.rfl.COMPLETE.AMRR .00165-0 Reference Range, Urine(ng/mL): Nicotine Smokers: 200-700 Nonsmokers: <=17 Cotinine Smokers: 300-1300 Nonsmokers: <=20Individuals exposed to second-hand or passive tobaccosmoke may demonstrate concentrations of nicotine andcotinine greater than those indicated for non-smokers.Test Performed by Mattie rEvin,[employer] [facility],[address] [place] [address] [id number] Avila M.D., Ph.D., Director of [phone], CLIA [id number] Performed By: #### 2 [id number] ####[facility],[address] [place] [address] MMR PROFILEon 10-12-2017 Protein mass conc Normal [facility] Comment on above: Result Comment: _MMR PROFILE_MMR (IGG) PANEL (MEASLES, MUMPS, RUBELLA)Reported: 10/12/2017 09:02 Status=F TEST RESULT FLAG RANGE UNITS MEASLES ANTIBODY (IGG) 107.00 >29.99 AU/mL 10/12/17.rfl.COMPLETE.AMRR .5244-9AU/mL Interpretation===== <25.00 Ondfyxwx56.00 - 29.99 Equivocal>29.99 PositiveA positive result indicates that the patient hasantibody to measles virus. It does not differentiatebetween an active or past infection. The clinicaldiagnosis must be interpreted in conjunction withclinical signs and symptoms of the patient.MUMPS VIRUS ANTIBODY 37.30 >10.99 AU/mL 10/12/17.rfl.COMPLETE.AMRR .12706-8(IGG) AU/mL Interpretation < 9.00 Negative 9.00 - 10.99 Equivocal > 10.99 PositiveA positive result indicates that the patient hasantibody to Mumps Virus. It does not differentiatebetween an active or past infection. The clinicaldiagnosis must be interpreted in conjunction withthe clinical signs and symptoms of the patient.RUBELLA ANTIBODY (IGG) 9.87 >=1.00 Index 10/12/17.0913.rflJARRELL.AMRR .5334-8INDEX INTERPRETATION < 0.90 Not consistent with Immunity0.90 - 0.99 Equivocal> or = 1.00 Consistent with ImmunityThe presence of Rubella IgG antibody suggestsimmunization or past or current infection withRubella virus.Test Performed by [employer] [facility],[address] [place] [address] [id number] Avila M.D., Ph.D., Director of [phone], [facility] [id number] Performed By: #### 2 [id number] ####[facility],[address] [place] [address] HEP B SURF AB QUANT [QUEST]o n 10-11-2017 HEP B SURF AB QUANT [QUEST] Normal [facility] Comment on above: Result Comment: _HEP B SURF AB QUANT_HEPATITIS B SURFACE ANTIBODY IMMUNITY, (QUANT)Reported: 10/11/2017 19:47 Status=F TEST RESULT FLAG RANGE UNITS HEP B SURF AB IMMUNITY,QN 6 L >=10 mIU/mL 10/11/17.1959.rflJARRELL.AMRR .5193-8PATIENT DOES NOT HAVE IMMUNITY TO HEPATITIS B VIRUS.For more information on this test, go to:http://education.[employer]/faq/MMM090Bhbw Performed by Mattie Ervin,[employer] [facility],[address] [place] [address] [id number] Avila M.D., Ph.D., Director of [phone], [facility] [id number] Performed By: #### 2 [id number] ####[facility],[address] [place] [address] DRUG SCREEN URINE MEDICon AMPHETAMINES Negative [facility] Comment on above: Performed By: #### 2 16923 ####[facility],[address] [place] [address] B-DIAZEPINES Negative [facility] Comment on above: Performed By: #### 2 07977 ####[facility],[address] [place] [address] BARBITURATES Negative [facility] Comment on above: Performed By: #### 2 89375 ####[facility],[address] [place] [address] COCAINE Negative [facility] Comment on above: Performed By: #### 2 59778 ####[facility],[address] [place] [address] DRUG SCREEN URINE MEDIC Normal [facility] Comment on above: Result Comment: DRUG SCREEN - URINE Performed By: #### 2 29276 ####[facility],[address] [place] [address] METHADONE Negative [facility] Comment on above: Performed By: #### 2 24003 ####[facility],[address] [place] [address] OPIATES Negative [facility] Comment on above: Performed By: #### 2 14186 ####[facility],[address] [place] [address] PCP Negative Normal [facility] Comment on above: Performed By: #### 2 18291 ####[facility],[address] [place] [address] 33753 TCA Negative Normal [facility] Comment on above: Performed By: #### 2 78527 ####[facility],[address] [place] [address] 23741 THC Negative Normal [facility] Comment on above: Result Comment: DOMINGA ENTS RECEIVING PROTON PUMP INHIBITORS MAY DEMONSTRATE FALSE POSITIVETHC/CANNABINOID RESULTS. AN ALTERNATIVE CONFIRMATORY METHOD SHOULD BE CONSIDEREDTO VERIFY POSITIVE RESULTS. Performed By: #### 2 [id number] ####[facility],[address] [place] [address]700 GLUCOSEon 10-08-2017 Glucose mass conc 90 mg/dL Normal 74 - 106 [facility] Comment on above: Performed By: #### 2 48078 ####[facility],[address] [place] [address]328 LIPID PROFILEon 10-08-2017 Cholesterol in HDL mass conc 48 mg/dL Normal 40 - 60 [facility] Comment on above: Performed By: #### 2 33526 ####[facility],[address] [place] [address] 58659 Cholesterol in LDL mass conc 124 mg/dl Normal 0 - 129 [facility] Comment on above: Performed By: #### 2 50619 ####[facility],[address] [place] [address] 97744 Cholesterol mass conc 199 mg/dL Normal 0 - 200 [facility] Comment on above: Performed By: #### 2 79328 ####[facility],[address] [place] [address] Cholesterol.total/Onofre sterol in HDL mass ratio 4.1 {ratio} Normal 0.0 - 5.0 [facility] Comment on above: Performed By: #### 2 74139 ####[facility],[address] [place] [address] Protein mass conc Normal [facility] Comment on above: Result Comment: LIPI D PROFILE Performed By: #### 2 [id number] ####[facility],[address] [place] [address] Triglyceride mass conc 136 mg/dL Normal 0 - 150 [facility] Comment on above: Performed By: #### 2 43884 ####[facility],[address] [place] [address] Culture, urine Bacteria identified Cx Nom (U) GNR lactose public health dentist [facility] Work Phone: Vital Signs Date Time Vital Sign Value Performing Clinician Facility 04-17-2025 09:45-0400 Body height 162.[address] Allyssa Velarde DO Work Phone: [facility] 04-17-2025 09:43-0400 Body mass index (BMI) [Ratio] 28.6 kg/m2 Dr. Allyssa eVlarde DO Work Phone: [facility] 04-17-2025 09:43-0400 Body weight 75.[address] Allyssa Velarde DO Work Phone: [facility] 04-17-2025 09:43-0400 Diastolic blood pressure 84 mm[Hg] Dr. Allyssa Velarde DO Work Phone: [facility] 04-17-2025 09:43-0400 Systolic blood pressure 125 mm[Hg] Dr. Allyssa Velarde DO Work Phone: [facility] 04-13-2025 10:04-0400 Body height 162.[address] Allyssa Velarde DO Work Phone: [facility] 04-13-2025 10:04-0400 Body mass index (BMI) [Ratio] 29.2 kg/m2 Dr. Allyssa Velarde DO Work Phone: [facility] 04-13-2025 10:04-0400 Body weight 77.[address] Allyssa Velarde DO Work Phone: [facility] 04-13-2025 10:04-0400 Diastolic blood pressure 83 mm[Hg] Dr. Allyssa Velarde DO Work Phone: [facility] 04-13-2025 10:04-0400 Systolic blood pressure 116 mm[Hg] Dr. Allyssa Velarde DO Work Phone: [facility] 04-03-2025 10:21-0400 Body height 162.[address] Allyssa Velarde DO Work Phone: [facility] 04-03-2025 10:21-0400 Body mass index (BMI) [Ratio] 28.3 kg/m2 Dr. Allyssa Velrade DO Work Phone: [facility] 04-03-2025 10:21-0400 Body weight 74.[address] Allyssa Velarde DO Work Phone: [facility] 04-03-2025 10:21-0400 Diastolic blood pressure 74 mm[Hg] Dr. Allyssa Velarde DO Work Phone: [facility] 04-03-2025 10:21-0400 Systolic blood pressure 116 mm[Hg] Dr. Allyssa Velarde DO Work Phone: [facility] 03-30-2025 14:46-0400 Body height 162.[address] Allyssa Velarde DO Work Phone: [facility] 03-30-2025 14:46-0400 Body mass index (BMI) [Ratio] 28.3 kg/m2 Dr. Allyssa Velarde DO Work Phone: [facility] 03-30-2025 14:46-0400 Body weight 74.[address] Allyssa Velarde DO Work Phone: [facility] 03-30-2025 14:46-0400 Diastolic blood pressure 68 mm[Hg] Dr. Allyssa Velarde DO Work Phone: [facility] 03-30-2025 14:46-0400 Systolic blood pressure 100 mm[Hg] Dr. Allyssa Velarde DO Work Phone: [facility] 03-26-2025 08:56-0400 Body height 162.[address] Allyssa Velarde DO Work Phone: [facility] 03-26-2025 08:56-0400 Body mass index (BMI) [Ratio] 27.8 kg/m2 Dr. Allyssa Velarde DO Work Phone: [facility] 03-26-2025 08:56-0400 Body temperature 97.7 [degF] Dr. Allyssa Velarde DO Work Phone: [facility] 03-26-2025 08:56-0400 Body weight 73.[address] Allyssa Velarde DO Work Phone: [facility] 03-26-2025 08:56-0400 Diastolic blood pressure 62 mm[Hg] Dr. Allyssa Velarde DO Work Phone: [facility] 03-26-2025 08:56-0400 Heart rate 88 /min Dr. Allyssa Velarde DO Work Phone: [facility] 03-26-2025 08:56-0400 Respiratory rate 16 /min Dr. Allyssa Velarde DO Work Phone: [facility] 03-26-2025 08:56-0400 SaO2% (BldA) [Mass fraction] 96 % Dr. Allyssa Velarde DO Work Phone: [facility] 03-26-2025 08:56-0400 Systolic blood pressure 100 mm[Hg] Dr. Allyssa Velarde DO Work Phone: [facility] 03-20-2025 09:36-0400 Body height 162.[address] Allyssa Velarde DO Work Phone: [facility] 03-20-2025 09:36-0400 Body mass index (BMI) [Ratio] 27.8 kg/m2 Dr. Allyssa Velarde DO Work Phone: [facility] 03-20-2025 09:36-0400 Body weight 73.[address] Allyssa Velarde DO Work Phone: [facility] 03-20-2025 09:36-0400 Diastolic blood pressure 64 mm[Hg] Dr. Allyssa Velarde DO Work Phone: [facility] 03-20-2025 09:36-0400 Systolic blood pressure 98 mm[Hg] Dr. Allyssa Velarde DO Work Phone: [facility] 03-08-2025 10:30-0400 Body height 162.[address] Allyssa Velarde DO Work Phone: [facility] 03-08-2025 10:26-0400 Body mass index (BMI) [Ratio] 27.8 kg/m2 Dr. Allyssa Velarde DO Work Phone: [facility] 03-08-2025 10:26-0400 Body weight 73.[address] Allyssa Velarde DO Work Phone: [facility] 03-08-2025 10:26-0400 Diastolic blood pressure 66 mm[Hg] Dr. Allyssa Velarde DO Work Phone: [facility] 03-08-2025 10:26-0400 Systolic blood pressure 97 mm[Hg] Dr. Allyssa Velarde DO Work Phone: [facility] 02-24-2025 11:08-0400 Body height 162.[address] Allyssa Velarde DO Work Phone: [facility] 02-24-2025 11:08-0400 Body mass index (BMI) [Ratio] 28.1 kg/m2 Dr. Allyssa Velarde DO Work Phone: [facility] 02-24-2025 11:08-0400 Body weight 74.[address] Allyssa Velarde DO Work Phone: [facility] 02-24-2025 11:08-0400 Diastolic blood pressure 79 mm[Hg] Dr. Allyssa Velarde DO Work Phone: [facility] 02-24-2025 11:08-0400 Systolic blood pressure 126 mm[Hg] Dr. Allyssa Velarde DO Work Phone: [facility] 02-06-2025 11:11-0400 Body height 162.[address] Allyssa Velarde DO Work Phone: [facility] 02-06-2025 11:11-0400 Body mass index (BMI) [Ratio] 27.8 kg/m2 Dr. Allyssa Velarde DO Work Phone: [facility] 02-06-2025 11:11-0400 Body weight 73.[address] Allyssa Velarde DO Work Phone: [facility] 02-06-2025 11:11-0400 Diastolic blood pressure 75 mm[Hg] Dr. Allyssa Velarde DO Work Phone: [facility] 02-06-2025 11:11-0400 Systolic blood pressure 112 mm[Hg] Dr. Allyssa Velarde DO Work Phone: [facility] 01-23-2025 10:17-0400 Body height 162.[address] Allyssa Velarde DO Work Phone: [facility] 01-23-2025 10:17-0400 Body mass index (BMI) [Ratio] 27.7 kg/m2 Dr. Allyssa Velarde DO Work Phone: [facility] 01-23-2025 10:17-0400 Body weight 73.[address] Allyssa Velarde DO Work Phone: [facility] 01-23-2025 10:17-0400 Diastolic blood pressure 75 mm[Hg] Dr. Allyssa Velarde DO Work Phone: [facility] 01-23-2025 10:17-0400 Systolic blood pressure 107 mm[Hg] Dr. Allyssa Velarde DO Work Phone: [facility] 12-28-2024 14:53-0400 Body mass index (BMI) [Ratio] 27.3 kg/m2 Dr. Allyssa Velarde DO Work Phone: [facility] 12-28-2024 14:53-0400 Body weight 72.[address] Allyssa Velarde DO Work Phone: [facility] 12-28-2024 14:53-0400 Diastolic blood pressure 74 mm[Hg] Dr. Allyssa Velarde DO Work Phone: [facility] 12-28-2024 14:53-0400 Systolic blood pressure 110 mm[Hg] Dr. Allyssa Velarde DO Work Phone: [facility] 12-02-2024 09:59-0400 Body mass index (BMI) [Ratio] 27.4 kg/m2 Dr. Allyssa Velarde DO Work Phone: [facility] 12-02-2024 09:59-0400 Body weight 72.[address] Allyssa Velarde DO Work Phone: [facility] 12-02-2024 09:59-0400 Diastolic blood pressure 70 mm[Hg] Dr. Allyssa Velarde DO Work Phone: [facility] 12-02-2024 09:59-0400 Systolic blood pressure 118 mm[Hg] Dr. Allyssa Velarde DO Work Phone: [facility] 11-19-2024 00:00-0400 Heart rate 81 /min Dr. Allyssa Velarde DO Work Phone: [facility] 11-19-2024 00:00-0400 Respiratory rate 21 /min Dr. Allyssa Velarde DO Work Phone: [facility] 11-19-2024 00:00-0400 SaO2% (BldA) [Mass fraction] 97 % Dr. Allyssa Velarde DO Work Phone: [facility] 11-18-2024 22:00-0400 Diastolic blood pressure 66 mm[Hg] Dr. Allyssa Velarde DO Work Phone: [facility] 11-18-2024 22:00-0400 Systolic blood pressure 107 mm[Hg] Dr. Allyssa Velarde DO Work Phone: [facility] 11-18-2024 18:02-0400 Body height 162.[address] Allyssa Velarde DO Work Phone: [facility] 11-18-2024 18:02-0400 Body mass index (BMI) [Ratio] 26.6 kg/m2 Dr. Allyssa Velarde DO Work Phone: [facility] 11-18-2024 18:02-0400 Body temperature 98 [degF] Dr. Allyssa Velarde DO Work Phone: [facility] 11-18-2024 18:02-0400 Body weight 70.[address] Allyssa Velarde DO Work Phone: [facility] 11-18-2024 08:37-0400 Body temperature 97.39 [degF] Wenceslao Short Jr., UNDER [employer]ER.HEALTH PHYSICIST Work Phone: [facility] 11-18-2024 08:37-0400 Body weight 70.94 kg Wenceslao Short Jr., UNDER GR[employer]ER.HEALTH PHYSICIST Work Phone: [facility] 11-18-2024 08:37-0400 Diastolic blood pressure 71 mm[Hg] Wenceslao Short Jr., UNDER GR[employer]ER.HEALTH PHYSICIST Work Phone: [facility] 11-18-2024 08:37-0400 Heart rate 110 /min Wenceslao Short Jr., UNDER GR[employer] MINER.HEALTH PHYSICIST Work Phone: [facility] 11-18-2024 08:37-0400 Respiratory rate 18 /min Wenceslao Short Jr., UNDER GR[employer] MINER.HEALTH PHYSICIST Work Phone: [facility] 11-18-2024 08:37-0400 SaO2% (BldA) [Mass fraction] 99 % Wenceslao Short Jr., UNDER GR[employer]ER.HEALTH PHYSICIST Work Phone: [facility] 11-18-2024 08:37-0400 Systolic blood pressure 106 mm[Hg] Wenceslao Short Jr., UNDER GR[employer]ER.HEALTH PHYSICIST Work Phone: [facility] 11-02-2024 14:21-0500 Body mass index (BMI) [Ratio] 27.4 kg/m2 Dr. Allyssa Velarde DO Work Phone: [facility] 11-02-2024 14:21-0500 Body weight 72.[address] Allyssa Velarde DO Work Phone: [facility] 11-02-2024 14:21-0500 Diastolic blood pressure 85 mm[Hg] Dr. Allyssa Velarde DO Work Phone: [facility] 11-02-2024 14:21-0500 Systolic blood pressure 122 mm[Hg] Dr. Allyssa Velarde DO Work Phone: [facility] 10-05-2024 12:36-0500 Body mass index (BMI) [Ratio] 28.1 kg/m2 Dr. Allyssa Velarde DO Work Phone: [facility] 10-05-2024 12:36-0500 Body weight 74.[address] Allyssa Velarde DO Work Phone: [facility] 10-05-2024 12:36-0500 Diastolic blood pressure 75 mm[Hg] Dr. Allyssa Velarde DO Work Phone: [facility] 10-05-2024 12:36-0500 Systolic blood pressure 120 mm[Hg] Dr. Allyssa Velarde DO Work Phone: [facility] 09-26-2023 12:12-0500 Body temperature 97.8 [degF] Dr. Allyss[facility] Velarde Work [facility] [facility] 09-26-2023 12:12-0500 Heart rate 74 /min Dr. Allyssa Velarde Work Phone: [facility] 09-26-2023 12:12-0500 Respiratory rate 16 /min Dr. Allyssa Velarde Work Phone: [facility] 09-26-2023 12:12-0500 SaO2% (BldA) [Mass fraction] 98 % Dr. Allyssa Velarde Work Phone: [facility] 09-26-2023 11:19-0500 Diastolic blood pressure 71 mm[Hg] Dr. Allyssa Velarde Work Phone: [facility] 09-26-2023 11:19-0500 Systolic blood pressure 136 mm[Hg] Dr. Allyssa Velarde Work Phone: [facility] 09-24-2023 10:17-0500 Body height 162.[address] Allyssa Velarde Work Phone: [facility] 09-24-2023 10:17-0500 Body mass index (BMI) [Ratio] 31.4 kg/m2 Dr. Allyssa Velarde Work Phone: [facility] 09-24-2023 10:17-0500 Body weight 83.[address] Allyssa Velarde Work Phone: [facility] 09-23-2023 14:24-0500 Body mass index (BMI) [Ratio] 31.1 kg/m2 Dr. Allyssa Velarde Work Phone: [facility] 09-23-2023 14:24-0500 Body weight 82.[address] Allyssa Velarde Work Phone: [facility] 09-23-2023 14:24-0500 Diastolic blood pressure 86 mm[Hg] Dr. Allyssa Velarde Work Phone: [facility] 09-23-2023 14:24-0500 Systolic blood pressure 128 mm[Hg] Dr. Allyssa Velarde Work Phone: [facility] 09-18-2023 12:12-0500 Body mass index (BMI) [Ratio] 31.2 kg/m2 Dr. Allyssa Velarde Work Phone: [facility] 09-18-2023 12:12-0500 Body weight 82.[address] Allyssa Velarde Work Phone: [facility] 09-18-2023 12:12-0500 Diastolic blood pressure 84 mm[Hg] Dr. Allyssa Velarde Work Phone: [facility] 09-18-2023 12:12-0500 Systolic blood pressure 124 mm[Hg] Dr. Allyssa Velarde Work Phone: [facility] 09-10-2023 14:46-0500 Body mass index (BMI) [Ratio] 31.2 kg/m2 Dr. Allyssa Velarde Work Phone: [facility] 09-10-2023 14:46-0500 Body weight 82.[address] Allyssa Velarde Work Phone: [facility] 09-10-2023 14:46-0500 Diastolic blood pressure 79 mm[Hg] Dr. Allyssa Velarde Work Phone: [facility] 09-10-2023 14:46-0500 Systolic blood pressure 118 mm[Hg] Dr. Allyssa Velarde Work Phone: [facility] 09-02-2023 08:28-0500 Body height 162.[address] Allyssa Velarde Work Phone: [facility] 09-02-2023 08:28-0500 Body mass index (BMI) [Ratio] 30.7 kg/m2 Dr. Allyssa Velarde Work Phone: [facility] 09-02-2023 08:28-0500 Body weight 81.[address] Allyssa Velarde Work Phone: [facility] 09-02-2023 08:28-0500 Diastolic blood pressure 82 mm[Hg] Dr. Allyssa Velarde Work Phone: [facility] 09-02-2023 08:28-0500 Heart rate 86 /min Dr. Allyssa Velarde Work Phone: [facility] 09-02-2023 08:28-0500 Systolic blood pressure 126 mm[Hg] Dr. Allyssa Velarde Work Phone: [facility] 08-26-2023 14:09-0500 Body mass index (BMI) [Ratio] 30.6 kg/m2 Dr. Allyssa Velarde Work Phone: [facility] 08-26-2023 14:09-0500 Body weight 80.[address] Allyssa Velarde Work Phone: [facility] 08-26-2023 14:09-0500 Diastolic blood pressure 82 mm[Hg] Dr. Allyssa Velarde Work Phone: [facility] 08-26-2023 14:09-0500 Systolic blood pressure 126 mm[Hg] Dr. Allyssa Velarde Work Phone: [facility] 08-10-2023 10:54-0500 Body mass index (BMI) [Ratio] 29.7 kg/m2 Dr. Allyssa Velarde Work Phone: [facility] 08-10-2023 10:54-0500 Body weight 78.[address] Allyssa Velarde Work Phone: [facility] 08-10-2023 10:54-0500 Diastolic blood pressure 66 mm[Hg] Dr. Allyssa Velarde Work Phone: [facility] 08-10-2023 10:54-0500 Systolic blood pressure 108 mm[Hg] Dr. Allyssa Velarde Work Phone: [facility] 07-23-2023 16:07-0500 Body height 162.[address] Allyssa Velarde Work Phone: [facility] 07-23-2023 16:06-0500 Body mass index (BMI) [Ratio] 29.5 kg/m2 Dr. Allyssa Velarde Work Phone: [facility] 07-23-2023 16:06-0500 Body weight 78.[address] Allyssa Velarde Work Phone: [facility] 07-23-2023 16:06-0500 Diastolic blood pressure 79 mm[Hg] Dr. Allyssa Velarde Work Phone: [facility] 07-23-2023 16:06-0500 Systolic blood pressure 114 mm[Hg] Dr. Allyssa Velarde Work Phone: [facility] 07-20-2023 14:34-0500 Body temperature 98.3 [degF] Dr. Allyssa Velarde Work Phone: [facility] 07-20-2023 14:34-0500 Diastolic blood pressure 74 mm[Hg] Dr. Allyssa Velarde Work Phone: [facility] 07-20-2023 14:34-0500 Heart rate 103 /min Dr. Allyssa Velarde Work Phone: [facility] 07-20-2023 14:34-0500 Respiratory rate 12 /min Dr. Allyssa Velarde Work Phone: [facility] 07-20-2023 14:34-0500 SaO2% (BldA) [Mass fraction] 97 % Dr. Allyssa Velarde Work Phone: [facility] 07-20-2023 14:34-0500 Systolic blood pressure 118 mm[Hg] Dr. Allyssa Velarde Work Phone: [facility] 07-08-2023 13:51-0400 Body height 162.[address] Allyssa Velarde Work Phone: [facility] 07-08-2023 13:48-0400 Body mass index (BMI) [Ratio] 28.5 kg/m2 Dr. Allyssa Velarde Work Phone: [facility] 07-08-2023 13:48-0400 Body weight 75.[address] Allyssa Velarde Work Phone: [facility] 07-08-2023 13:48-0400 Diastolic blood pressure 73 mm[Hg] Dr. Allyssa Velarde Work Phone: [facility] 07-08-2023 13:48-0400 Systolic blood pressure 117 mm[Hg] Dr. Allyssa Velarde Work Phone: [facility] 06-10-2023 14:05-0400 Body mass index (BMI) [Ratio] 28.2 kg/m2 Dr. Allyssa Velarde Work Phone: [facility] 06-10-2023 14:05-0400 Body weight 74.[address] Allyssa Velarde Work Phone: [facility] 06-10-2023 14:05-0400 Diastolic blood pressure 78 mm[Hg] Dr. Allyssa Velarde Work Phone: [facility] 06-10-2023 14:05-0400 Systolic blood pressure 108 mm[Hg] Dr. Allyssa Velarde Work Phone: [facility] 05-13-2023 13:31-0400 Body height 162.[address] Allyssa Velarde Work Phone: [facility] 05-13-2023 13:31-0400 Body mass index (BMI) [Ratio] 27.3 kg/m2 Dr. Allyssa Velarde Work Phone: [facility] 05-13-2023 13:31-0400 Body weight 72.[address] Allyssa Velarde Work Phone: [facility] 05-13-2023 13:31-0400 Diastolic blood pressure 72 mm[Hg] Dr. Allyssa Velarde Work Phone: [facility] 05-13-2023 13:31-0400 Systolic blood pressure 118 mm[Hg] Dr. Allyssa Velarde Work Phone: [facility] 04-14-2023 10:07-0400 Body mass index (BMI) [Ratio] 26.6 kg/m2 Dr. Allyssa Velarde Work Phone: [facility] 04-14-2023 10:07-0400 Body weight 70.[address] Allyssa Velarde Work Phone: [facility] 04-14-2023 10:07-0400 Diastolic blood pressure 74 mm[Hg] Dr. Allyssa Velarde Work Phone: [facility] 04-14-2023 10:07-0400 Systolic blood pressure 108 mm[Hg] Dr. Allyssa Velarde Work Phone: [facility] 03-16-2023 16:06-0400 Body height 162.[address] Allyssa Velarde Work Phone: [facility] 03-16-2023 16:06-0400 Body mass index (BMI) [Ratio] 27 kg/m2 Dr. Allyssa Velarde Work Phone: [facility] 03-16-2023 16:06-0400 Body weight 71.[address] Allyssa Velarde Work Phone: [facility] 03-16-2023 16:06-0400 Diastolic blood pressure 73 mm[Hg] Dr. Allyssa Velarde Work Phone: [facility] 03-16-2023 16:06-0400 Systolic blood pressure 119 mm[Hg] Dr. Allyssa Velarde Work Phone: [facility] 02-19-2023 15:09-0400 Body height 162.[address] Allyssa Velarde Work Phone: [facility] 02-19-2023 15:09-0400 Body mass index (BMI) [Ratio] 26.9 kg/m2 Dr. Allyssa Velarde Work Phone: [facility] 02-19-2023 15:09-0400 Body weight 71.[address] Allyssa Velarde Work Phone: [facility] 02-19-2023 15:09-0400 Diastolic blood pressure 81 mm[Hg] Dr. Allyssa Velarde Work Phone: [facility] 02-19-2023 15:09-0400 Systolic blood pressure 123 mm[Hg] Dr. Allyssa Velarde Work Phone: [facility] 11-27-2022 09:42-0400 Body mass index (BMI) [Ratio] 27.6 kg/m2 Dr. Allyssa Velarde Work Phone: [facility] 11-27-2022 09:42-0400 Body weight 73.[address] Allyssa Velarde Work Phone: [facility] 11-27-2022 09:42-0400 Diastolic blood pressure 82 mm[Hg] Dr. Allyssa Velarde Work Phone: [facility] 11-27-2022 09:42-0400 Systolic blood pressure 122 mm[Hg] Dr. Allyssa Velarde Work Phone: [facility] 2022 17:17-0400 Body temperature 98.8 [degF] Dr. Allyssa Velarde Work Phone: [facility] Work Phone: 2022 17:17-0400 Diastolic blood pressure 82 mm[Hg] Dr. Allyssa Velarde Work Phone: [facility] Work Phone: 2022 17:17-0400 Heart rate 85 /min Dr. Allyssa Velarde Work Phone: [facility] Work Phone: 2022 17:17-0400 Respiratory rate 16 /min Dr. Allyssa Velarde Work Phone: [facility] Work Phone: 2022 17:17-0400 SaO2% (BldA) [Mass fraction] 100 % Dr. Allyssa Velarde Work Phone: [facility] Work Phone: 2022 17:17-0400 Systolic blood pressure 113 mm[Hg] Dr. Allyssa Velarde Work Phone: [facility] Work Phone: 2022 12:50-0400 Body height 165.[address] Allyssa Velarde Work Phone: [facility] Work Phone: 2022 12:50-0400 Body mass index (BMI) [Ratio] 24.2 kg/m2 Dr. Allyssa Velarde Work Phone: [facility] Work Phone: 2022 12:50-0400 Body weight [address] Allyssa Velarde Work Phone: [facility] Work Phone: 03-28-2022 08:05-0400 Body mass index (BMI) [Ratio] 25 kg/m2 Dr. Allyssa Velarde Work Phone: [facility] Work Phone: 03-28-2022 08:05-0400 Body weight 68.[address] Allyssa Velarde Work Phone: [facility] Work Phone: 03-28-2022 08:05-0400 Diastolic blood pressure 80 mm[Hg] Dr. Allyssa Velarde Work Phone: [facility] Work Phone: 03-28-2022 08:05-0400 Respiratory rate 16 /min Dr. Allyssa Velarde Work Phone: [facility] Work Phone: 03-28-2022 08:05-0400 Systolic blood pressure 116 mm[Hg] Dr. Allyssa Velarde Work Phone: [facility] Work Phone: 03-24-2022 08:33-0400 Respiratory rate 16 /min Dr. Allyssa Velarde Work Phone: [facility] Work Phone: 03-24-2022 06:34-0400 Diastolic blood pressure 79 mm[Hg] Dr. Allyssa Velarde Work Phone: [facility] Work Phone: 03-24-2022 06:34-0400 Heart rate 83 /min Dr. Allyssa Velarde Work Phone: [facility] Work Phone: 03-24-2022 06:34-0400 SaO2% (BldA) [Mass fraction] 99 % Dr. Allyssa Velarde Work Phone: [facility] Work Phone: 03-24-2022 06:34-0400 Systolic blood pressure 114 mm[Hg] Dr. Allyssa Velarde Work Phone: [facility] Work Phone: 03-24-2022 04:52-0400 Body height 165.[address] Allyssa Velarde Work Phone: [facility] Work Phone: 03-24-2022 04:52-0400 Body mass index (BMI) [Ratio] 25.8 kg/m2 Dr. Allyssa Velarde Work Phone: [facility] Work Phone: 03-24-2022 04:52-0400 Body temperature 99.1 [degF] Dr. Allyssa Velarde Work Phone: [facility] Work Phone: 03-24-2022 04:52-0400 Body weight 70.[address] Allyssa Velarde Work Phone: [facility] Work Phone: 03-04-2022 08:01-0400 Body height 165.[address] Allyssa Velarde Work Phone: [facility] Work Phone: 03-04-2022 08:01-0400 Body mass index (BMI) [Ratio] 23.9 kg/m2 Dr. Allyssa Velarde Work Phone: [facility] Work Phone: 03-04-2022 08:01-0400 Body weight 65.[address] Allyssa Velarde Work Phone: [facility] Work Phone: 03-04-2022 08:01-0400 Diastolic blood pressure 84 mm[Hg] Dr. Allyssa Velarde Work Phone: [facility] Work Phone: 03-04-2022 08:01-0400 Systolic blood pressure 132 mm[Hg] Dr. Allyssa Velarde Work Phone: [facility] Work Phone: Encounters Encounter Date Encounter Type Care Provider Facility Start: 04-24-2025 ambulatory Allyssa chapmany:[facility] Start: 04-17-2025 End: 04-17-[address] Crissy Rodas MD -[facility] Work Phone: Start: 04-17-2025 End: 04-17-[address] Allyssa Velarde DO Work Phone: -[facility] Start: 04-13-2025 End: 04-13-[address] Farrah Manning DO -[facility] Work Phone: Start: 04-13-2025 End: 04-13-[address] Allyssa Velarde DO Work Phone: -[facility] Start: 04-03-2025 End: 04-03-2025 Patient encounter procedure Corina Daniel CNM -[facility] Work Phone: Start: 04-03-2025 End: 04-03-[address] Allyssa Velarde DO Work Phone: -[facility] Start: 03-30-2025 End: 03-30-[address] Allyssa Velarde DO Work Phone: -Laboratory Specimen Start: 03-30-2025 End: 03-30-2025 Patient encounter procedure Corina Daniel CNM -Laboratory Specimen Work Phone: Start: 03-30-2025 End: 03-30-2025 Patient encounter procedure Corina Daniel CNM -[facility] Work Phone: Start: 03-30-2025 End: 03-30-[address] Allyssa Velarde DO Work Phone: -[facility] Start: 03-30-2025 End: 03-30-2025 ambulatory Allyssa Velarde Facility:[facility] Start: 03-28-2025 ambulatory Allyssa Velarde Facil ity:[facility] Start: 03-26-2025 End: 03-26-2025 [facility] Work Phone: Start: 03-26-2025 End: 03-26-[address] Allyssa Velarde DO Work Phone: [facility] Start: 03-20-2025 End: 03-20-2025 Patient encounter procedure Ida REGALADO -[facility] Work Phone: Start: 03-20-2025 End: 03-20-[address] Allyssa Velarde DO Work Phone: -[facility] Start: 03-20-2025 End: 03-20-2025 ambulatory Allyssa Velarde Facility:[facility] Start: 03-08-2025 End: 03-08-[address] Farrah Manning DO -[facility] Work Phone: Start: 03-08-2025 End: 03-08-[address] Allyssa Velarde DO Work Phone: -[facility] Start: 02-24-2025 End: 02-24-[address] Crissy Rodas MD -[facility] Work Phone: Start: 02-24-2025 End: 02-24-[address] Allyssa Velarde DO Work Phone: [facility] Work Phone: Start: 02-06-2025 End: 02-06-2025 Patient encounter procedure Corina Daniel CNM -[facility] Work Phone: Start: 02-06-2025 End: 02-06-[address] Allyssa Velarde DO Work Phone: [facility] Work Phone: Start: 01-23-2025 End: 01-23-2025 Patient encounter procedure Corina Daniel CNM -[facility] Work Phone: Start: 01-23-2025 End: 01-23-[address] Allyssa Velarde DO Work Phone: [facility] Work Phone: Start: 01-23-2025 End: 01-23-2025 ambulatory Farrah Manning Facility:[facility] Start: 12-28-2024 End: 12-28-2024 Patient encounter procedure Ida REGALADO -[facility] Work Phone: Start: 12-28-2024 End: 12-28-2024 ambulatory Allyssa Velarde Facility:[facility] Start: 12-28-2024 End: 12-28-2024 ambulatory Farrah Manning Facility:[facility] Start: 12-26-2024 End: 12-26-2024 ambulatory ALLYSSA VELARDE [facility] Start: 12-02-2024 End: 12-02-2024 Patient encounter procedure Ida REGALADO -[facility] Work Phone: Start: 12-02-2024 End: 12-02-2024 ambulatory Allyssa Velarde Facility:[facility] Start: 11-28-2024 End: 11-28-2024 ambulatory FARRAH MCKEON [facility] Start: 11-19-2024 End: 11-19-2024 Follow-up encounter Wenceslao Short APRN.HEALTH PHYSICIST Work Phone: [facility] Comment on above: Results Start: 11-19-2024 End: 11-19-2024 Telephone encounter Wenceslao Short APRN.HEALTH PHYSICIST Work Phone: [facility] Start: 11-18-2024 End: 11-19-2024 Emergency department patient visit Dr. Allyssa Velarde DO Work Phone: -Emergency Department Work Phone: Start: 11-18-2024 End: 11-18-2024 Patient encounter procedure Wenceslao Short APRN.HEALTH PHYSICIST Work Phone: [facility] Comment on above: Congestion of nasal sinus (Primary Dx); Nausea and vomiting, unspecified vomiting type Start: 11-18-2024 End: 11-18-2024 ambulatory ALLYSSA VELARDE Facility:[id number] Start: 11-02-2024 End: 11-02-[address] Crissy Rodas MD -[facility] Work Phone: Start: 11-02-2024 End: 11-02-2024 ambulatory Allyssa Velarde Facility:[facility] Start: 10-13-2024 End: 10-13-[address] Farrah Manning DO -Laboratory Work Phone: Start: 10-13-2024 End: 10-13-2024 ambulatory Farrah Manning Facility:[facility] Start: 10-05-2024 End: 10-05-[address] Farrah Manning DO -Laboratory, Specimen Work Phone: Start: 10-05-2024 End: 10-05-[address] Farrah Manning DO -[facility] Work Phone: Start: 10-05-2024 End: 10-05-2024 ambulatory Allyssa Velarde Facility:[facility] Start: 10-05-2024 End: 10-05-2024 ambulatory Allyssa Velarde Facility:[facility] Start: 09-26-2023 Non-patient / Non-visit Dr. Allyssa Velarde Work Phone: [facility] Start: 09-25-2023 Non-patient / Non-visit Dr. Allyssa Velarde Work Phone: [facility] Start: 09-24-2023 Non-patient / Non-visit Dr. Allyssa Velarde Work Phone: [facility] Start: 09-24-2023 End: 09-26-2023 Evaluation and management of inpatient Dr. Allyssa Velarde Work Phone: [facility] Work Phone: Start: 09-23-2023 End: 09-23-[address] Allyssa Velarde Work Phone: [facility] Work Phone: Start: 09-18-2023 End: 09-18-[address] Allyssa Velarde Work Phone: [facility] Work Phone: Start: 09-10-2023 End: 09-10-[address] Allyssa Velarde Work Phone: [facility] Work Phone: Start: 09-10-2023 End: 09-10-[address] Allyssa Velarde Work Phone: [facility] Work Phone: Start: 09-02-2023 End: 09-02-[address] Allyssa Velarde Work Phone: [facility] Work Phone: Start: 09-02-2023 End: 09-02-[address] Allyssa Velarde Work Phone: [facility]-Laboratory, Specimen Work Phone: Start: 09-02-2023 End: 09-02-[address] Allyssa Velarde Work Phone: [facility] Work Phone: Start: 08-26-2023 End: 08-26-[address] Allyssa Velarde Work Phone: [facility] Work Phone: Start: 08-10-2023 End: 08-10-[address] Allyssa Velarde Work Phone: [facility] Work Phone: Start: 07-23-2023 End: 07-23-[address] Allyssa Velarde Work Phone: [facility] Work Phone: Start: 07-20-2023 End: 07-20-[address] Allyssa Velarde Work Phone: [facility] Work Phone: Start: 07-20-2023 End: 07-20-[address] Allyssa Velarde Work Phone: [facility] Work Phone: Start: 07-20-2023 End: 07-20-[address] [facility] Start: 07-08-2023 End: 07-08-[address] Allyssa Velarde Work Phone: [facility] Work Phone: Start: 07-04-2023 End: 07-04-[address] Allyssa Velarde Work Phone: [facility] Work Phone: Start: 07-04-2023 End: 07-04-[address] [facility] Start: 07-01-2023 End: 07-01-[address] [facility] Work Phone: Start: 06-10-2023 End: 06-10-[address] [facility] Work [facility] Start: 06-10-2023 End: 06-10-[address] Allyssa Velarde Work Phone: [facility] Work Phone: Start: 06-10-2023 End: 06-10-[address] Allyssa Velarde Work Phone: [facility] Work Phone: Start: 05-13-2023 End: 05-13-[address] Allyssa Veladre Work Phone: [facility] Work Phone: Start: 05-13-2023 End: 05-13-[address] Allyssa Velarde Work Phone: [facility] Work Phone: Start: 05-13-2023 End: 05-13-[address] Allyss[facility] Velarde [facility] Work Phone: Start: 04-14-2023 End: 04-14-[address] Allyssa Velarde Work Phone: [facility] Work Phone: Start: 04-13-2023 End: 04-13-[address] Allyss[facility] Velarde [facility] Work Phone: Start: 03-16-2023 End: 03-16-[address] Allyssa Velarde Work Phone: [facility] Work Phone: Start: 03-16-2023 End: 03-16-[address] Allyss[facility] Velarde [facility] Work Phone: Start: 03-12-2023 End: 03-12-[address] Allyssa Velarde Work Phone: [facility] Work Phone: Start: 03-12-2023 End: 03-12-[address] Allyssa Velarde Work Phone: [facility]Laboratory, Pavilion Start: 02-23-2023 End: 02-23-[address] Allyssa Velarde Work Phone: [facility] Start: 02-19-2023 End: 02-19-[address] Allyssa Velarde Work Phone: [facility] Work Phone: Start: 02-19-2023 End: 02-19-[address] [facility] Start: 02-19-2023 End: 02-19-2023 Patient encounter procedure Dr. Allyssa Velarde Work Phone: [facility] Start: 01-22-2023 End: 01-22-[address] [facility] Start: 01-20-2023 End: 01-20-[address] [facility] Start: 11-27-2022 End: 11-27-[address] Allyssa Velarde Work Phone: [facility] Start: 11-19-2022 End: 11-19-[address] Allyssa Velarde Work Phone: [facility] Work Phone: Start: 11-19-2022 End: 11-19-[address] [facility] Start: 11-17-2022 End: 11-17-[address] Allyssa Velarde Work Phone: [facility] Work Phone: Start: 11-17-2022 End: 11-17-[address] Allyssa Velarde Work Phone: [facility] Start: 09-30-2022 End: 09-30-[address] Allyssa Velarde Work Phone: [facility] Start: 09-25-2022 End: 09-25-[address] Allyssa Velarde Work Phone: [facility] Start: 2022 Non-patient / Non-visit Dr. Allyssa Velarde Work Phone: [facility] Start: 2022 End: 2022 Admission to same day surgery center Dr[facility] Velarde [facility] Start: 03-28-2022 End: 03-28-[address] Allyssa Velarde Work Phone: [facility] Start: 03-24-2022 End: 03-24-2022 Emergency department patient visit Dr. Allyssa Velarde Work Phone: [facility] Start: 03-05-2022 End: 03-05-[address] Allyssa Velared Work Phone: [facility] Start: 03-04-2022 End: 03-04-[address] Allyssa Velarde Work Phone: [facility] Start: 03-04-2022 End: 03-04-[address] Allyssa Velarde Work Phone: [facility] Start: 06-03-2018 Patient encounter [employer] [facility] Start: 10-08-2017 End: 10-08-2017 Patient encounter [employer] EMPLOYEE [facility] Procedures Date Procedure Procedure Detail Performing Clinician Start: 03-30-2025 Beta-hemolytic Strep tococcus culture Dr. Allyssa Velarde DO Work Phone: Start: 01-23-2025 Serologic test for syphilis Dr. Allyssa Velarde DO Work Phone: Start: 12-28-[address] Allyssa Velarde DO Work Phone: Start: 11-18-2024 Urnls dip stick/tabl et reagent auto microscopy Dr. Allyssa Velarde DO Work Phone: Start: 11-18-2024 SARS-CoV-2, Influenz a & RSV (PCR) Dr. Allyssa Velarde DO Work Phone: Start: 11-18-[address] Allyssa Velarde DO Work Phone: Start: 10-13-2024 Hepatitis B surface antigen measurement Dr. Allyssa Velarde DO Work Phone: Start: 10-13-2024 Hepatitis C antibody measurement Dr. Allyssa Velarde DO Work Phone: Comment on above: Non Reactive: < 0.8 Equivocal: >/= 0.8 to < 1.0 Reactive: >/= 1.0The CDC requires that a reactive/equivocal HCV antibody result be sent out for confirmation. HCV Quant by PCR testing. Start: 10-13-[address] Allyssa Velarde DO Work Phone: Comment on above: Antibody Results Int erpretation of Immune Status Non Reactive Presumed Non-Immune Equivocal Equivocal Reactive Presumed Immune Start: 10-05-[address] Allyssa Velarde DO Work Phone: Start: 09-02-2023 Group B Streptococcu s Culture Dr. Allyssa Velarde Work Phone: Start: 06-10-[address] Allyssa Velarde Work Phone: Start: 02-19-[address] Allyssa Velarde Work Phone: Start: 2022 Total cholecystectom y and exploration of common bile duct Dr. Allyssa Velarde Work Phone: Start: 03-24-2022 US scan of gallbladder Dr. Allyssa Velarde Work Phone: Start: 03-04-2022 X-ray of lumbosacral spine Dr. Allyssa Velarde Work Phone: Urine culture Dr. Allyssa chen Work Phone: Urine culture Dr. Allyssa chen Work Phone: Plan of Treatment Date Care Activity Detail Author Start: 2069 RSV Vaccine (1 - 1-dose 75+ series) RSV Vaccine (1 - 1-dose 75+ series) [facility] Start: 08-26-2033 Urine microalbumin profile DTaP,Tdap,Td Vaccine (8 - Td or Tdap) [facility] Start: 03-20-2025 CBC W Auto Differential panel - Blood [facility] Start: 01-23-2025 CBC W Auto Differential panel - Blood [facility] Start: 01-23-2025 Measurement of glucose 2 hours after glucose challenge for glucose tolerance test [facility] Start: 01-23-2025 Serologic test for syphilis [facility] Start: 01-23-[address] [facility] Start: 11-18-[address] [facility] Start: 11-18-[address] [facility] Start: 11-18-2024 Bacteria identified in Urine by Culture Urine Culture [facility] Start: 05-08-2024 Covid-19 Vaccine ( season) Covid-19 Vaccine () [facility] Start: 09-26-2023 Patient discharge [facility] Start: 09-25-2023 Administration of medication [facility] Start: 09-25-2023 Application of ice collar, cap or bag [facility] Start: 09-25-2023 Catheterization of vein [facility] Start: 09-25-2023 Introduction of urinary catheter [facility] Start: 09-25-2023 Measuring intake and output [facility] Start: 09-25-2023 Notification of physician [facility] Start: 09-25-20[address] Procedure [address] [facility] Start: 09-25-2023 Provision of activity privileges [facility] Start: 09-25-2023 Vital signs measurements [facility] Start: 09-25-[address] [facility] Start: 09-24-[address] [facility] Start: 09-24-2023 Notification of physician [facility] Start: 09-24-[address] [facility] Start: 09-24-2023 Admission procedure [facility] Start: 2022 Patient discharge [facility] Work Phone: Start: 03-24-[address] [facility] Work Phone: Start: 2015 Screening for malignant neoplasm of cervix Cervical Cancer Screening [facility] Start: 2012 Anxiety Screening Anxiety Screening [facility] Start: 2012 Depression Screening Depression Screening [facility] Start: 2012 Hepatitis C screening Hepatitis C Screening [facility] Start: 2012 HIV screening HIV Screening [facility] Bacteria identified in Urine by Culture Urine Culture [facility] Work Phone: CBC W Auto Different ial panel - Blood [facility] CBC W Auto Different ial panel - Blood [facility] COVID & INFLUENZA A/ B & RSV PCR, ROUTINE COVID & INFLUENZA A/B & RSV PCR, ROUTINE Microbiology Routine Nausea and vomiting, unspecified vomiting type 11/18/2024 9:29 AM EDT [facility] Work Phone: Erythrocyte mean corpuscular volume determination [facility] Erythrocyte mean corpuscular volume determination [facility] Hematocrit [Volume Fraction] of Blood [facility] Hematocrit [Volume Fraction] of Blood [facility] Hemoglobin [Mass/vol ume] in Blood [facility] Hemoglobin [Mass/vol ume] in Blood [facility] Hepatitis B surface antigen measurement [facility] Hepatitis C antibody measurement [facility] HIV 1+2 Ab+HIV1 p24 Ag [Presence] in Serum or Plasma by Immunoassay [facility] Leukocytes [#/volume ] in Blood [facility] Leukocytes [#/volume ] in Blood [facility] Mean corpuscular hemoglobin concentration determination [facility] Mean corpuscular hemoglobin concentration determination [facility] Mean corpuscular hemoglobin determination [facility] Mean corpuscular hemoglobin determination [facility] Neutrophil count [facility] Neutrophil count [facility] Neutrophil percent differential count [facility] Neutrophil percent differential count [facility] Patient Education Abdominal Pain [facility] Work Phone: Patient referral [facility] Work Phone: Platelets [#/volume] in Blood [facility] Platelets [#/volume] in Blood [facility] Red blood cell count [facility] Red blood cell count [facility] Red cell distributio n width determination [facility] Red cell distributio n width determination [facility] Rubella IgG measurement [facility] Streptococcus agalac tiae [Presence] in Unspecified specimen by Organism specific culture [facility] Treponema sp Ab [Pre sence] in Serum [facility] Urine culture [facility] Work Phone: [facility] Immunizations Immunization Date Immunization Notes Care Provider Fa [facility] 02-06-2025 tetanus toxoid, redu solis diphtheria toxoid, and acellular pertussis vaccine, adsorbed Dr. Allyssa Velarde DO Work Phone: [facility] 07-11-2024 influenza, seasonal, injectable, preservative free Dr. Allyssa Velarde DO Work Phone: [facility] 08-26-2023 tetanus toxoid, redu solis diphtheria toxoid, and acellular pertussis vaccine, adsorbed Dr. Allyssa Velarde Work Phone: [facility] 07-23-2023 influenza, injectabl e, quadrivalent, preservative free Dr. Allyssa Velarde Work Phone: [facility] 06-09-2022 influenza, injectabl e, quadrivalent, preservative free Dr. Allyssa Velarde Work Phone: [facility] 06-09-2022 influenza, seasonal, injectable Dr. Allyssa Velarde Work Phone: [facility] 07-02-2021 Covid (Moderna) Dr. Allyssa aguilar Work Phone: [facility] 06-12-2021 influenza, injectabl e, quadrivalent, preservative free Dr. Allyssa Velarde Work Phone: [facility] 06-12-2021 influenza, seasonal, injectable Dr. Allyssa Velarde Work Phone: [facility] 10-23-2020 Covid (Moderna) Dr. Allyssa aguilar Work Phone: [facility] 09-25-2020 Covid (Moderna) Dr. Allyssa aguilar Work Phone: [facility] 06-13-2020 influenza, injectabl e, quadrivalent, preservative free Dr. Allyssa Velarde Work Phone: [facility] 06-13-2020 influenza, seasonal, injectable Dr. Allyssa Velarde Work Phone: [facility] 07-11-2019 influenza, injectabl e, quadrivalent, preservative free Dr. Allyssa Velarde Work Phone: [facility] 07-11-2019 influenza, seasonal, injectable Dr. Allyssa Velarde Work Phone: [facility] 07-07-2018 influenza, injectabl e, quadrivalent, preservative free Dr. Allyssa Velarde Work Phone: [facility] 07-07-2018 influenza, seasonal, injectable Dr. Allyssa Velarde Work Phone: [facility] 06-04-2017 influenza, injectabl e, quadrivalent, preservative free Dr. Allyssa Velarde Work Phone: [facility] 06-04-2017 influenza, seasonal, injectable Dr. Allyssa Velarde Work Phone: [facility] 06-16-2016 influenza, injectabl e, quadrivalent, preservative free Dr. Allyssa Velarde Work Phone: [facility] 06-16-2016 influenza, seasonal, injectable Dr. Allyssa Velarde Work Phone: [facility] 03-05-[address] Allyssa Velarde Work Phone: [facility] Payers Date Payer Category Payer Unknown [id number] 2024 Self-pay [id number] 2023 Blue Cross Blue Shield BLUE ACCE PPO [id number] 2023 Unknown [id number] 1994 Unknown [id number] [id number]. 479 1994 Unknown [id number] 2.16.840.1.696538.3.579.2. 479 Private Health Insurance [id number] Unknown [id number] Unknown [facility] [id number] Unknown ANTHEM [id number] Unknown [id number] 2.16.840.1.739538.3.579.2. 462 Unknown [id number] 2.16.840.1.110512.3.579.2. 462 Unknown [id number] 2.16.840.1.778483.3.579.2. 462 Unknown [id number] 2.16.840.1.594730.3.579.2. 462 Unknown [id number] 2.16840.1.417485.3.579.2. 462 Unknown [id number] 2..840.1.270135.3.579.2. 462 Unknown [id number] 2.16.840.1.485869.3.579.2. 462 Unknown [id number] 2.840.1.983437.3.579.2. 462 Unknown [id number] 2.840.1.768386.3.579.2. 462 Unknown [id number] 2.840.1.351481.3.579.2. 462 Unknown [id number] 2..840.1.301567.3.579.2. 462 Unknown [id number] 2.16.840.1.668332.3.579.2. 462 Unknown [id number] 2.16840.1.938377.3.579.2. 462 Unknown [id number] 2.16.840.1.937124.3.579.2. 462 Unknown [id number] 2.16.840.1.535914.3.579.2. 462 Unknown [id number] 2.16.840.1.830578.3.579.2. 462 Unknown [id number] 2.16.840.1.437251.3.579.2. 462 Unknown [id number] 2.16.840.1.602445.3.579.2. 462 Unknown [id number] 2.16.840.1.183932.3.579.2. 462 Unknown [id number] 2.16.840.1.864080.3.579.2. 462 Unknown [id number] 2.16.840.1.552954.3.579.2. 462 Unknown [id number] 2.16.840.1.170323.3.579.2. 462 Unknown [id number] 2.16.840.1.019215.3.579.2. 462 Social History Date Type Detail Facility Start: 03-05-2022 End: 09-24-2023 Tobacco smoking status LAIS Unknown if ever smoked [facility] Start: 1995 Sex Assigned At Female [facility] Start: 11-18-2024 End: 11-18-2024 Tobacco smoking status NHIS Never smoked tobacco [facility] Start: 11-18-2024 Tobacco use and exposure Smokeless tobacco non-user [facility] Start: 11-18-2024 Alcoholic beverage intake Ex-drinker (finding) [facility] Start: 11-18-2024 History of Social function [facility] Start: 11-18-2024 Tobacco use panel [facility] Adult Depression Screening Assessment 0 [facility] Start: 1995 Sex assigned at Not on file [facility] Start: 11-19-2024 Sex Female (finding) [facility] Goals Date Patient Goal Desired Activity /State Functional Status Date Assessment Result Facility 2022 Functional status Ambulates [facility] Work Phone: Mental Status Date Assessment Result Facility 11-18-2024 Cognitive function Level Of Cons ciousness Awake;Alert;Appropriate;Follow s Commands [facility] Work Phone: 2022 Cognitive function Voice/Name [facility] Work Phone: Clinical Notes 02-19-2023 to 04-17-2025 Note Date & Type Note Facility 04-17-2025 Progress note [facility] 04-03-2025 Progress note [facility] 03-30-2025 Progress note [facility] 03-30-2025 Progress note Note Date/Time March 30, 2025 3:11pm [facility] [address] [place] [address], [address] [place] [address] OFFICE VISIT Date of Service: 03/30/25 MR#: [id number] Acct: [id number] Name: EDEL GALLOWAY Rep #: [id number] : 1995 Provider: BRAYAN Daniel Age/Sex: 29/F Location: [facility] Status: Signed Intake Vital Signs 03/26/25 08:56 03/30/25 14:46 Height 5 ft 4 in 5 ft 4 in Weight: 162 lb 4 oz 165 lb 4 oz BMI 27.8 28.3 BP 100/62 100/68 Blood Pressure Location Lt brachial Position Sitting Respiration 16 Pulse 88 Pulse Source Monitor Temp 97.7 F L Pulse Oximetry (%) 96 Oxygen Delivery Method room air Intake Visit Reasons: 36wk ob Chief Complaint: 36wk ob Biometrics Technician Required: No Is patient in pain?: No Allergies No Known Allergies Allergy (Verified 03/30/25 14:45) Medications ?Medication ?Instructions ?Recorded ?Confirmed ?Type multivitamin no.47-iron fum 27 cap PO 09/27/24 5 History mg-folate no.1 1 mg-dha 300 mg capsule (PNV-DHA) ondansetron 4 mg disintegrating 4 mg PO Q6H PRN nausea and 11/18/24 03/30/25 Rx tablet vomiting #30 tabs loratadine 10 mg tablet (Claritin) 10 mg PO QDAY 12/2803/30/25 History amoxicillin 875 mg-potassium 1 tab PO BID 7 days #14 t abs 03/26/25 03/30/25 Rx clavulanate 125 mg tablet Last Menstrual Period: 07/18/24 : No PFSH PFSH Medical History Conjunctivitis, right eye Hx of abnormal cervical Pap smear Complete Spotting Heartburn Non-smoker Cholelithiases Frequent headaches Surgical History History of laparoscopic cholecystectomy (~03/2022) Hx of wisdom tooth extraction Family History Mother Diabetes Hypertension Grandmother Heart disease Social History adopted: No household members: spouse and children number of children: 1 current occupational status: employed 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: Yes (bloodborne pathogens) pets and animals: Yes pets and animals: dog(s) history of recent travel: No ([place], [place]) sexually active: Yes Smoking Status: Never smoker alcohol intake: current alcohol intake frequency: a few times a month Alcohol type: beer and wine details: not while substance use type: does not use well-balanced diet: daily or most days caffeine: No eating out: 1-3 times/week during the past year weight has: increased > 10 lbs what type of physical activity do you participate in: walking frequency: 1-2 times per week duration: 15-30 minutes/day maynor/episcopal: None seatbelt use: always do you feel safe at home: Yes additional social history: - Dave History 3 Elective abortions Hx Para 1 Spontaneous abortions 1 Hx # Term Pregnancies Ectopic pregnancies Hx # Pregnancies Multiple births # of living children 1 Past Pregnancies Del. Date Name GA/Weeks Outcome Route Bth Weight Gen Labor Lgth Anesthesia Del [facility] Provider FOB 11/20/22 miscarriage @5-6 wks 09/24/23 Delainey 40 live - full term 7#9oz Female ep idural [facility] Dr. Adrianna Acosta Delivery Date: 09/24/23 Last Updated by: Macrina FOSTERID, vanishing twin, 2nd degree laceration HPI 36wk ob Details: EDEL GALLOWAY is a 29 year old who presents for routine OB visit. OB Visit JOE Calculator Estimated Delivery Date Method Current WG Current Estimate 04/24/25 LMP (Certain) 36w 3d Other Estimates 04/25/25 Ultrasound #1 36w 2d Expected Delivery Route/Plan Labor Preferences- CB/BF classes: no labor support person: Dave labor intervention preferences: [] pain management options preferred: epidural cut cord/dad catch: YES : yes PP control planned: discussed possible routes of delivery and associated risks: [] special requests: [] Specific Issue/Plans Covid status: [] Flu vaccine: [] Tdap vaccine: given Rhogam: NA LARC form signed: yes Problem list reviewed and updated with the most current plan of care details and appropriate orders placed. Relevant counseling for the gestational age provided. Continue routine care and follow up unless otherwise noted in visit notes/problem list details Initial Weight: Not Recorded Date -?-?-?-?-?-?-?-?-?-?-?-?- EGA Weight BP Urine Prot -?-?-?-?-?-?-?-?-?-?-?-?- Glucose FHR FuHt Pres Dilation -?-?-?-?-?-?-?-?-?-?-?-?- Effaced St Visit Note 10/05/24 -?-?-?-?-?-?-?-?-?-?-?-?- 11w 2d 164 lb 120/75 -?-?-?-?-?-?-?-?-?-?-?-?- 169 -?-?-?-?-?-?-?-?-?-?-?-?- JV- CRL is consi stent with LMP. She declines NIPT. wants to do anatomy scan in [place] 11/02/24 -?-?-?-?-?-?-?-?-?-?-?-?- 15w 2d 160 lb 2 oz 122/85 Nega tive -?-?-?-?-?-?-?-?-?-?-?-?- Negative 150 -?-?-?-?-?-?-?-?-?-?-?--?- SM- no vb crampi ng 12/02/24 -?-?-?-?-?-?-?-?-?-?-?-?- 19w 4d 160 lb 2 oz 118/70 Nega tive -?-?-?-?-?-?-?-?-?-?-?-?- Negative 146 -?-?-?-?-?-?-?-?-?-?-?-?- MH-No VB. Luis cano. Repeat MFM US 12/26. 12/28/24 -?-?-?-?-?-?-?-?-?-?-?-?- 23w 2d 159 lb 2 oz 110/74 Nega tive -?-?-?-?-?-?-?-?-?-?-?-?- Negative 143 23 -?-?-?-?-?-?-?-?-?-?-?-?- [facility] UA neg for infection. Has not been drinking much fluid and encouraged. Good Fm. No VB, LOF. 01/23/25 -?-?-?-?-?-?-?-?-?-?-?-?- 27w 0d 161 lb 8 oz 107/75 Nega tive -?-?-?-?-?-?-?-?-?-?-?-?- Negative 140 27 -?-?-?-?-?-?-?-?-?-?-?-?- KW- no vb/lof/ct x. good fm. glucose today. LARC today. 02/06/25 -?-?-?-?-?-?-?-?-?-?-?-?- 29w 0d 162 lb 4 oz 112/75 Nega tive -?-?-?-?-?-?-?-?-?-?-?-?- Negative 135 29 -?-?-?-?-?-?-?-?-?-?-?-?- KW-no vb/lof/ctx . good fm. anemic-will start taking PNV and get HGB rechecked. 02/24/25 -?-?-?-?-?-?-?-?-?-?-?-?- 31w 4d 164 lb 126/79 Negative -?-?-?-?-?-?-?-?-?-?-?-?- Negative 135 32 -?-?-?-?-?-?-?-?-?-?-?-?- SM- no vb lof go od fm irreuglar ctx 03/08/25 -?-?-?-?-?-?-?-?-?-?-?-?- 33w 2d 162 lb 97/66 Trace -?-?-?-?-?-?-?-?-?-?-?-?- 100 g/dL 150 33 -?-?-?-?-?-?-?-?-?-?-?-?- JV- no lof, vagi nal bleeding, or dec fm. no complaints other than some air hunger of 03/20/25 -?-?-?-?-?-?-?-?-?-?-?-?- 35w 0d 162 lb 2 oz 98/64 Nega tive -?-?-?-?-?-?-?-?-?-?-?-?- Negative 141 34 -?-?-?-?-?-?-?-?-?-?-?-?- MH-No vB, LOF or CTX. Good FM. CBC today 03/30/25 -?-?-?-?-?-?-?-?-?-?-?-?- 36w 3d 165 lb 4 oz 100/68 Nega tive -?-?-?-?-?-?-?-?-?-?-?-?- Negative 135 36 Cephalic 2 .5 -?-?-?-?-?-?-?-?-?-?-?--?- 70 -2 KW- No vb/ lof/ctx. good fm GBS today. labor precautions ACOG First Trimester First Trimester: Discussed Second Trimester Second Trimester: Signs and Symptoms of Labor, Selecting a care provider, Reproductive Life Planning & Contreception and Intimate Partner Violence Third Trimester Third Trimester: Pain Management Plans, Labor support person(s), Immediate Larc, Signs and Symptoms of Preeclampsia, Education, Family Medical Leave or Disability Forms and Intimate Partner Violence; Discussed Tobacco Cessation and Discussed Depression ROS Const Reports system reviewed and no additional complaints, except as documented Eyes Reports system reviewed and no additional complaints, except as documented ENT Reports system reviewed and no additional complaints, except as documented Card Reports system reviewed and no additional complaints, except as documented Resp Reports system reviewed and no additional complaints, except as documented GI Reports system reviewed and no additional complaints, except as documented, Denies nausea and Denies vomiting Reports system reviewed and no additional complaints, except as documented Musc Reports system reviewed and no additional complaints, except as documented Skin/Breast Reports system reviewed and no additional complaints, except as documented Neuro Yes system reviewed and no additional complaints, except as documented Psych Reports system reviewed and no additional complaints, except as documented Endo Reports system reviewed and no additional complaints, except as documented James/Lymph Reports system reviewed and no additional complaints, except as documented Aller/Immun Reports system reviewed and no additional complaints, except as documented Exam Const General: cooperative, healthy appearing and no acute distress Orientation: alert, awake and oriented x3 Neck Neck: normal visual inspection and full ROM Resp Effort & Inspection: normal respiratory effort, able to speak in complete sentences and symmetric chest movement GI Inspection: normal to inspection Palpation: soft and other Other: gravid Skin General: no rashes or lesions noted Neuro General: patient alert, patient awake and patient oriented x3 Cognition: normal cognition Speech: speech normal Gait: normal gait Motor: muscle tone normal throughout Extrem General: normal to inspection and full ROM Psych Appearance: grossly normal Mental Status: mental status grossly normal Mood: congruent mood Affect: normal affect Speech and Movement: speech and movement normal Attitude: cooperative Thought Process: normal Thought Content: normal Judgment: judgment good Results POC Urinalysis 2 Dip (Clinic) Office Urine Glucose Negative Last Edit by Annita Espinosa on 03/30/25 14:54 Office Urine Protein Negative Last Edit by Annita Espinosa on 03/30/25 14:54 Coding Level of Care Code OB Routine Diagnoses Acute non-recurrent maxillary sinusitis J01.00 Chronicity: acute Recurrence: non-recurrent Anemia affecting in third trimester O99.013 Trimester: third trimester Urinary tract infection in mother during second trimester of O23.42 Trimester: second trimester Abnormal ultrasound O28.3 History of miscarriage, currently O09.299 36 weeks gestation of Z3A.36 Weeks of gestation: 36 weeks Supervision of high risk in third trimester O09.93 Trimester: third trimester Segmental and somatic dysfunction of sacral region M99.04 Segmental and somatic dysfunction of lumbar region M99.03 Neck pain M54.2 Segmental and somatic dysfunction of cervical region M99.01 Segmental and somatic dysfunction of thoracic region M99.02 Assessment and Plan Assessment and Plan (1) Maxillary sinusitis: Status: Acute Qualifiers: Chronicity: acute Recurrence: non-recurrent Qualified Code(s): J01.00 - Acute maxillary sinusitis, unspecified (2) Anemia affecting : Status: Acute Qualifiers: Trimester: third trimester Qualified Code(s): O99.013 - Anemia complicating , third trimester Comment: Was not taking PNV w/FE and started. cbc in 4 weeks: persists and FE added (3) UTI in : Status: Acute Qualifiers: Trimester: second trimester Qualified Code(s): O23.42 - Unspecified infection of urinary tract in , second trimester Comment: Dx [facility] urgent care. Needs rpt culture next visit/negative (4) Abnormal ultrasound: Status: Acute Comment: CVI (normal variant) noted. MFM will bring back in 1 month to monitor Appt 12/26:RESOLVED (5) History of miscarriage, currently : Status: Acute (6) : Status: Acute Qualifiers: Weeks of gestation: 36 weeks Qualified Code(s): Z3A.36 - 36 weeks gestation of Comment: declined NIPT & Carrier testing (7) Supervision of high-risk : Status: Acute Qualifiers: Trimester: third trimester Qualified Code(s): O09.93 - Supervision of high risk , unspecified, third trimester Comment: PRR, , JOE 04/24/25, girl PC Miroslava, Dave (8) Segmental and somatic dysfunction of sacral region: Status: Acute (9) Segmental and somatic dysfunction of lumbar region: Status: Acute (10) Neck pain: Status: Acute (11) Segmental and somatic dysfunction of cervical region: Status: Acute (12) Segmental and somatic dysfunction of thoracic region: Status: Acute Orders: Orders POC Urinalysis 2 Dip (Clinic) Today Culture, Group B Streptococcus Today O09.93 - Supervision of high risk , unspecified, third trimester, Z3A.36 - 36 weeks gestation of Plan Details Additional Comments: ACOG trimester education reviewed and updated. see problem list details for updated plan management information and see below for orders placed at this visit. GA appropriate handout given. Goals & Barriers: Goals Decrease pain Improve ROM Decrease inflammation Barriers Poor posture at work/baby 03/30/25 1511 <Electronically signed by Corina norman CNM> Date _ Corina Palomochelseyhernesto Signature: Date (if applicable) CC: ~ [facility] Work Phone: 1([phone]) 267-177407-20-2025 [facility] [address], [address] [place], [place] [address] OFFICE VISIT Date of Service: 03/26/25 MR#: [id number] Acct: [id number] Name: EDEL GALLOWAY Rep #: [id number] : 1995 Provider: [facility] ic Self Schedule Age/Sex: 29/F Location: [facility] Status: Signed Intake Vital Signs 03/20/25 09:36 03/26/25 08:56 Height 5 ft 4 in 5 ft 4 in Weight: 162 lb 2 oz 162 lb 4 oz BMI 27.8 27.8 BP 98/64 100/62 Blood Pressure Location Lt brachial Position Sitting Respiration 16 Pulse 88 Pulse Source Monitor Temp 97.7 F L Temp Source Temporal Pulse Oximetry (%) 96 Oxygen Delivery Method room air Intake Visit Reasons: CONGESTION Chief Complaint: Congestion Is patient in pain?: No Allergies No Known Allergies Allergy (Verified 03/26/25 08:54) Medications ?Medication ?Instructions ?Recorded ?Confirmed ?Type multivitamin no.47-iron fum 27 cap PO 09/27/24 5 History mg-folate no.1 1 mg-dha 300 mg capsule (PNV-DHA) ondansetron 4 mg disintegrating 4 mg PO Q6H PRN nausea and 11/18/24 03/26/25 Rx tablet vomiting #30 tabs loratadine 10 mg tablet (Claritin) 10 mg PO QDAY 12/2803/26/25 History amoxicillin 875 mg-potassium 1 tab PO BID 7 days #14 t abs 03/26/25 03/26/25 Rx clavulanate 125 mg tablet Patient : Yes PFSH Medical History Conjunctivitis, right eye Hx of abnormal cervical Pap smear Complete Spotting Heartburn Non-smoker Cholelithiases Frequent headaches Surgical History History of laparoscopic cholecystectomy (~03/2022) Hx of wisdom tooth extraction Family History Mother Diabetes Hypertension Grandmother Heart disease Social History adopted: No household members: spouse and children number of children: 1 current occupational status: employed 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: Yes (bloodborne pathogens) pets and animals: Yes pets and animals: dog(s) history of recent travel: No ([place], [place]) sexually active: Yes Smoking Status: Never smoker alcohol intake: current alcohol intake frequency: a few times a month Alcohol type: beer and wine details: not while substance use type: does not use well-balanced diet: daily or most days caffeine: No eating out: 1-3 times/week during the past year weight has: increased > 10 lbs what type of physical activity do you participate in: walking frequency: 1-2 times per week duration: 15-30 minutes/day maynor/episcopal: None seatbelt use: always do you feel safe at home: Yes additional social history: - Dave Female Reproductive History Menstrual Ab spontaneous: 1 HPI HPI Chief Complaint: Congestion Details: EDEL GALLOWAY, is a 29 F who presents to the office today for concerns regarding ongoing congestion and productive cough. She does acknowledge left ear pressureand headache. This has been ongoing since March 14, 2025. She is currently 36 weeks . This has been intermittent. She thought she was improving and did not discuss with other providers. However, she feels that her symptoms are lingering longer than expected. She does present today for evaluation. She has been taking Sudafed and Robitussin. She has not taken any Tylenol. Prior to evaluation, Augmentin was reviewed and was safe to use during pregnancyand breast-feeding.Zithromax/azithromycin also reviewed and may be safe to useduring and breast-feeding. ROS Const Constitutional: Positive for body ache, chills, fatigue and headache(s); No fever(s) or change in appetite Eyes Eyes: No blurry vision, change in vision, double vision, irritation, discharge, vision loss, dry eyes, bulging eyes, floaters, visual disturbances, eye pain, Light sensitivity, spots in vision, tunnel vision or other ENT ENT: Positive for ear pressure, nasal congestion, sinus pain, nasal discharge, post nasal drip and headache(s); No ear or mastoid pain, ear discharge, tinnitus, dizziness/vertigo, nosebleed/epistaxis, nose pain,sinus pressure, facial pain, dental pain, difficulty swallowing, bad breath, hoarseness, lip swelling, mouth lesions, mouth pain, neck pain, sore throat, tongue swelling or throat swelling Resp Respiratory: Positive for cough (sometimes barky) Cough: Yes productive, change in phlegm color (Yellow, green) and shortness of breath (Associated with ); No chest congestion, hemoptysis, pain on inspiration, pain with cough, stridor or wheezing Cardio Cardiology: No chest pain at rest, chest pain with exertion, shortness of breath, dyspnea on exertion or lightheadedness Gastro GI: No abdominal pain, change in bowel habits or difficulty swallowing Genitourinary-Female: No burning urination or urinary frequency Musc Musculoskeletal: No joint pain or neck pain Skin Skin: No rash Neuro Neurology: Positive for headache(s); No visual disturbances Psych Psychiatric: No change in appetite Endo Endocrine: Positive for fatigue Aller/Imm Allergy/Immunologic: No lip swelling, throat swelling, tongue swelling or wheezing Exam Const General: cooperative, healthy appearing, comfortable and no acute distress Orientation: alert, awake and oriented x3 [facility] Head: normal to inspection and normocephalic Ears: hearing grossly normal bilaterally, external ears normal and TM's normal bilaterally Nose: external nose normal, nares normal and no nasal discharge Face and sinus: normal facial exam and sinus tenderness maxillary (Left) Mouth: oral mucosae normal, lip normal, tongue normal, oropharynx normal and moist mucous membranes Throat: posterior oropharynx normal, tonsils normal, uvula midline and no postnasal drainage Eyes General: appearance normal, both eyes and all related structures Neck Neck: normal visual inspection and no lymphadenopathy Carotids: normal carotid upstroke Lymphatic: no lymphadenopathy noted Chest Chest palpation & inspection: normal inspection of the chest Resp Effort & Inspection: normal respiratory effort, able to speak in complete sentences, symmetric chest movement, no cough and no stridor Auscultation: Bilateral: Clear to Auscultation Cardio Rate: regular rate Rhythm: regular rhythm Heart Sounds: S1 normal, S2 normal and no murmurs GI Inspection: normal to inspection Auscultation: normal bowel sounds Palpation: soft Skin General: no rashes or lesions noted Neuro Speech: speech normal Extrem General: normal to inspection and capillary refill normal Coding Level of Care Code Off vis,est,level 3 Diagnoses Acute non-recurrent maxillary sinusitis J01.00 Chronicity: acute Recurrence: non-recurrent Assessment and Plan Assessment and Plan (1) Maxillary sinusitis: Status: Acute Qualifiers: Chronicity: acute Recurrence: non-recurrent Qualified Code(s): J01.00 - Acute maxillary sinusitis, unspecified Plan: Will add antibiotic therapy as prescribed. Encouraged to get plenty of rest, drink lots of clear liquids, and use Tylenol or Ibuprofen (unless contraindicated) for fever and comfort. Patient also educated on other symptomatic management techniques. To be seen in 7-10 days if no improvement; sooner if worsening of symptoms.? Patient advised of potential red flags and when appropriate to report to the ED.? Patient verbalized understanding and agreement with all the above. Medications: New amoxicillin-pot clavulanate 875-125 mg 1 TAB PO BID 7 days 14 tabs 0RF Plan Details Goals & Barriers: Goals Decrease pain Improve ROM Decrease inflammation Barriers Poor posture at work/baby 03/26/25 0916 P CURRENCY EXAMINER-C> Date _ Dhruv Mancia CURRENCY EXAMINER CURRENCY EXAMINER-C Cosigner Signature: Date (if applicable) CC: Dr. Farrah Manning, DO; Dr. Allyssa Velarde, DO ~ [facility]07-20-2025 Progress note Author Dhruv Mancia [facility] Note Date/Time March 26, 2025 9:16 am [facility] [address], [address] [place] [address] OFFICE VISIT Date of Service: 03/26/25 MR#: [id number] Acct: [id number] Name: EDEL GALLOWAY Rep #: [id number] : 1995 Provider: [facility] Self Schedule Age/Sex: 29/F Location: [facility] Status: Signed Intake Vital Signs 03/20/25 09:36 03/26/25 08:56 Height 5 ft 4 in 5 ft 4 in Weight: 162 lb 2 oz 162 lb 4 oz BMI 27.8 27.8 BP 98/64 100/62 Blood Pressure Location Lt brachial Position Sitting Respiration 16 Pulse 88 Pulse Source Monitor Temp 97.7 F L Temp Source Temporal Pulse Oximetry (%) 96 Oxygen Delivery Method room air Intake Visit Reasons: CONGESTION Chief Complaint: Congestion Is patient in pain?: No Allergies No Known Allergies Allergy (Verified 03/26/25 08:54) Medications ?Medication ?Instructions ?Recorded ?Confirmed ?Type multivitamin no.47-iron fum 27 cap PO 09/27/24 5 History mg-folate no.1 1 mg-dha 300 mg capsule (PNV-DHA) ondansetron 4 mg disintegrating 4 mg PO Q6H PRN nausea and 11/18/24 03/26/25 Rx tablet vomiting #30 tabs loratadine 10 mg tablet (Claritin) 10 mg PO QDAY 12/2803/26/25 History amoxicillin 875 mg-potassium 1 tab PO BID 7 days #14 t abs 03/26/25 03/26/25 Rx clavulanate 125 mg tablet Patient : Yes PFSH Medical History Conjunctivitis, right eye Hx of abnormal cervical Pap smear Complete Spotting Heartburn Non-smoker Cholelithiases Frequent headaches Surgical History History of laparoscopic cholecystectomy (~03/2022) Hx of wisdom tooth extraction Family History Mother Diabetes Hypertension Grandmother Heart disease Social History adopted: No household members: spouse and children number of children: 1 current occupational status: employed 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: Yes (bloodborne pathogens) pets and animals: Yes pets and animals: dog(s) history of recent travel: No ([place], [place]) sexually active: Yes Smoking Status: Never smoker alcohol intake: current alcohol intake frequency: a few times a month Alcohol type: beer and wine details: not while substance use type: does not use well-balanced diet: daily or most days caffeine: No eating out: 1-3 times/week during the past year weight has: increased > 10 lbs what type of physical activity do you participate in: walking frequency: 1-2 times per week duration: 15-30 minutes/day maynor/episcopal: None seatbelt use: always do you feel safe at home: Yes additional social history: - Dave Female Reproductive History Menstrual Ab spontaneous: 1 HPI HPI Chief Complaint: Congestion Details: EDEL GALLOWAY, is a 29 F who presents to the office today for concerns regarding ongoing congestion and productive cough. She does acknowledge left ear pressureand headache. This has been ongoing since March 14, 2025. She is currently 36 weeks . This has been intermittent. She thought she was improving and did not discuss with other providers. However, she feels that her symptoms are lingering longer than expected. She does present today for evaluation. She has been taking Sudafed and Robitussin. She has not taken any Tylenol. Prior to evaluation, Augmentin was reviewed and was safe to use during pregnancyand breast-feeding. Zithromax/azithromycin also reviewed and may be safe to useduring and breast-feeding. ROS Const Constitutional: Positive for body ache, chills, fatigue and headache(s); No fever(s) or change in appetite Eyes Eyes: No blurry vision, change in vision, double vision, irritation, discharge, vision loss, dry eyes, bulging eyes, floaters, visual disturbances, eye pain, Light sensitivity, spots in vision, tunnel vision or other ENT ENT: Positive for ear pressure, nasal congestion, sinus pain, nasal discharge, post nasal drip and headache(s); No ear or mastoid pain, ear discharge, tinnitus, dizziness/vertigo, nosebleed/epistaxis, nose pain, sinus pressure, facial pain, dental pain, difficulty swallowing, bad breath, hoarseness, lip swelling, mouth lesions, mouth pain, neck pain, sore throat, tongue swelling or throat swelling Resp Respiratory: Positive for cough (sometimes barky) Cough: Yes productive, change in phlegm color (Yellow, green) and shortness of breath (Associated with ); No chest congestion, hemoptysis, pain on inspiration, pain with cough, stridor or wheezing Cardio Cardiology: No chest pain at rest, chest pain with exertion, shortness of breath, dyspnea on exertion or lightheadedness Gastro GI: No abdominal pain, change in bowel habits or difficulty swallowing Genitourinary-Female: No burning urination or urinary frequency Musc Musculoskeletal: No joint pain or neck pain Skin Skin: No rash Neuro Neurology: Positive for headache(s); No visual disturbances Psych Psychiatric: No change in appetite Endo Endocrine: Positive for fatigue Aller/Imm Allergy/Immunologic: No lip swelling, throat swelling, tongue swelling or wheezing Exam Const General: cooperative, healthy appearing, comfortable and no acute distress Orientation: alert, awake and oriented x3 HENMT Head: normal to inspection and normocephalic Ears: hearing grossly normal bilaterally, external ears normal and TM's normal bilaterally Nose: external nose normal, nares normal and no nasal discharge Face and sinus: normal facial exam and sinus tenderness maxillary (Left) Mouth: oral mucosae normal, lip normal, tongue normal, oropharynx normal and moist mucous membranes Throat: posterior oropharynx normal, tonsils normal, uvula midline and no postnasal drainage Eyes General: appearance normal, both eyes and all related structures Neck Neck: normal visual inspection and no lymphadenopathy Carotids: normal carotid upstroke Lymphatic: no lymphadenopathy noted Chest Chest palpation & inspection: normal inspection of the chest Resp Effort & Inspection: normal respiratory effort, able to speak in complete sentences, symmetric chest movement, no cough and no stridor Auscultation: Bilateral: Clear to Auscultation Cardio Rate: regular rate Rhythm: regular rhythm Heart Sounds: S1 normal, S2 normal and no murmurs GI Inspection: normal to inspection Auscultation: normal bowel sounds Palpation: soft Skin General: no rashes or lesions noted Neuro Speech: speech normal Extrem General: normal to inspection and capillary refill normal Coding Level of Care Code Off vis,est,level 3 Diagnoses Acute non-recurrent maxillary sinusitis J01.00 Chronicity: acute Recurrence: non-recurrent Assessment and Plan Assessment and Plan (1) Maxillary sinusitis: Status: Acute Qualifiers: Chronicity: acute Recurrence: non-recurrent Qualified Code(s): J01.00 - Acute maxillary sinusitis, unspecified Plan: Will add antibiotic therapy as prescribed. Encouraged to get plenty of rest, drink lots of clear liquids, and use Tylenol or Ibuprofen (unless contraindicated) for fever and comfort. Patient also educated on other symptomatic management techniques. To be seen in 7-10 days if no improvement; sooner if worsening of symptoms.? Patient advised of potential red flags and when appropriate to report to the ED.? Patient verbalized understanding and agreement with all the above. Medications: New amoxicillin-pot clavulanate 875-125 mg 1 TAB PO BID 7 days 14 tabs 0RF Plan Details Goals & Barriers: Goals Decrease pain Improve ROM Decrease inflammation Barriers Poor posture at work/baby 03/26/25 0916 <Electronically signed by Dhruv REGALADO> Date _ Dhruv REGALADO Cosigner Signature: Date (if applicable) CC: Dr. Farrah Manning DO; Dr. Allyssa Velarde DO ~ [facility] Work Phone: 1(839) 575-775807-02-2025 [facility]'[address], [address] [place] [id number] OFFICE VISIT Date of Service: 03/08/25 MR#: [id number] Acct: [id number] Name: EDEL GALLOWAY Rep #: [id number] : 1995 Provider: Dr. Khadra Manning DO Age/Sex: 29/F Location: [facility] Status: Signed Intake Vital Signs 01/23/25 10:17 02/24/25 11:08 03/08/25 10:26 03/08/25 10:30 Height 5 ft 4 in 5 ft 4 in 5 ft 4 in 5 ft 4 in Weight: 162 lb BMI 27.8 BP 97/66 Intake Visit Reasons: 33wk ob Biometrics Technician Required: No Is patient in pain?: No Allergies No Known Allergies Allergy (Verified 03/08/25 10:25) Medications ?Medication ?Instructions ?Recorded ?Confirmed ?Type multivitamin no.47-iron fum 27 cap PO 09/27/24 5 History mg-folate no.1 1 mg-dha 300 mg capsule (PNV-DHA) metoclopramide HCl 10 mg tablet 10 mg PO Q6H PRN nause a and 11/18/24 03/08/25 Rx vomiting #14 tabs ondansetron 4 mg disintegrating 4 mg PO Q6H PRN nausea and 11/18/24 03/08/25 Rx tablet vomiting #30 tabs loratadine 10 mg tablet (Claritin) 10 mg PO QDAY 12/2803/08/25 History Last Menstrual Period: 07/18/24 Zika: Zika virus screening: Negative : No PFSH PFSH Medical History Conjunctivitis, right eye Hx of abnormal cervical Pap smear Complete Spotting Heartburn Non-smoker Cholelithiases Frequent headaches Surgical History History of laparoscopic cholecystectomy (~03/2022) Hx of wisdom tooth extraction Family History Mother Diabetes Hypertension Grandmother Heart disease Social History adopted: No household members: spouse and children number of children: 1 current occupational status: employed 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: Yes (bloodborne pathogens) pets and animals: Yes pets and animals: dog(s) history of recent travel: No ([place], [place]) sexually active: Yes Smoking Status: Never smoker alcohol intake: current alcohol intake frequency: a few times a month Alcohol type: beer and wine details: not while substance use type: does not use well-balanced diet: daily or most days caffeine: No eating out: 1-3 times/week during the past year weight has: increased > 10 lbs what type of physical activity do you participate in: walking frequency: 1-2 times per week duration: 15-30 minutes/day maynor/episcopal: None seatbelt use: always do you feel safe at home: Yes additional social history: - Dave History 3 Elective abortions Hx Para 1 Spontaneous abortions 1 Hx # Term Pregnancies Ectopic pregnancies Hx # Pregnancies Multiple births # of living children 1 Past Pregnancies Del. Date Name GA/Weeks Outcome Route Bth Weight Gen Labor Lgth Anesthesia Del Locatn Provider FOB 11/20/22 miscarriage @5-6 wks 09/24/23 Delainey 40 live - full term 7#9oz Female ep idural [facility] Dr. Adrianna Acosta Delivery Date: 09/24/23 Last Updated by: Macrina Schwab COVID, vanishing twin, 2nd degree laceration HPI 33wk ob Details: EDEL GALLOWAY is a 29 year old who presents for routine OB visit. OB Visit JOE Calculator Estimated Delivery Date Method Current WG Current Estimate 04/24/25 LMP (Certain) 33w 2d Other Estimates 04/25/25 Ultrasound #1 33w 1d Expected Delivery Route/Plan Labor Preferences- CB/BF classes: [] labor support person: [] labor intervention preferences: [] pain management options preferred: [] cut cord/dad catch: [] : [] PP control planned: [] discussed possible routes of delivery and associated risks: [] special requests: [] Specific Issue/Plans Covid status: [] Flu vaccine: [] Tdap vaccine: [] Rhogam: [] LARC form signed: [] Problem list reviewed and updated with the most current plan of care details and appropriate ordersplaced. Relevant counseling for the gestational age provided. Continue routine care and follow up unless otherwise noted in visit notes/problem list details Initial Weight: Not Recorded Date -?-?-?-?-?-?-?-?-?-?-?-?- EGA Weight BP Urine Prot -?-?-?-?-?-?-?-?-?-?-?-?- Glucose FHR FuHt Pres Dilation -?-?-?-?-?-?-?-?-?-?-?-?- Effaced St Visit Note 10/05/24 -?-?-?-?-?-?-?-?-?-?-?-?- 11w 2d 164 lb 120/75 -?-?-?-?-?-?-?-?-?-?-?-?- 169 -?-?-?-?-?-?-?-?-?-?-?-?- JV- CRL is consi stent with LMP. [facility] declines NIPT[facility] -?-?-?-?-?-?-?-?-?-?-?-?- 15w 2d 160 lb 2 oz 122/85 Nega tive -?-?-?-?-?-?-?-?-?-?-?-?- Negative 150 -?-?-?-?-?-?-?-?-?-?-?-?- - no vb crampi ng 12/02/24 -?-?-?-?-?-?-?-?-?-?-?-?- 19w 4d 160 lb 2 oz 118/70 Nega tive -?-?-?-?-?-?-?-?-?-?-?-?- Negative 146 -?-?-?-?-?-?-?-?-?-?-?-?- -No VB. Luis herrmann flutters. Repeat MFM US 12/26. 12/28/24 -?-?-?-?-?-?-?-?-?-?-?-?- 23w 2d 159 lb 2 oz 110/74 Nega tive -?-?-?-?-?-?-?-?-?-?-?-?- Negative 143 23 -?-?-?-?-?-?-?-?-?-?-?-?- -work in for arden joya. UA neg for infection. Has not been drinking much fluid and encouraged. Good Fm. No VB, LOF. 01/23/25 -?-?-?-?-?-?-?-?-?-?-?-?- 27w 0d 161 lb 8 oz 107/75 Nega tive -?-?-?-?-?-?-?-?-?-?-?-?- Negative 140 27 -?-?-?-?-?-?-?-?-?-?-?-?- KW- no vb/lof/ct x. good fm. glucose today. LARC today. 02/06/25 -?-?-?-?-?-?-?-?-?-?-?-?- 29w 0d 162 lb 4 oz 112/75 Nega tive -?-?-?-?-?-?-?-?-?-?-?-?- Negative 135 29 -?-?-?-?-?-?-?-?-?-?-?-?- KW-no vb/lof/ctx . good fm. anemic-will start taking PNV and get HGB rechecked. 02/24/25 -?-?-?-?-?-?-?-?-?-?-?-?- 31w 4d 164 lb 126/79 Negative -?-?-?-?-?-?-?-?-?-?-?-?- Negative 135 32 -?-?-?-?-?-?-?-?-?-?-?-?- SM- no vb lof go od fm irreuglar ctx 03/08/25 -?-?-?-?-?-?-?-?-?-?-?-?- 33w 2d 162 lb 97/66 -?-?-?-?-?-?-?-?-?-?-?-?- 150 33 -?-?-?-?-?-?-?-?-?-?-?-?- JV- no lof, vagi nal bleeding, or dec fm. no complaints other than some air hunger of ACOG First Trimester First Trimester: Discussed Second Trimester Second Trimester: Signs and Symptoms of Labor, Selecting a care provider, Reproductive Life Planning & Contreception and Intimate Partner Violence Third Trimester Third Trimester: Pain Management Plans, Labor support person(s), Immediate Larc, Signs and Symptoms of Preeclampsia, [place] Education, Family Medical Leave or Disability Forms and Intimate Partner Violence; Discussed Tobacco Cessation and Discussed Depression Coding Level of Care Code OB Routine Diagnoses Anemia affecting O99.019 Urinary tract infection in mother during second trimester of O23.42 Trimester: second trimester Abnormal ultrasound O28.3 History of miscarriage, currently O09.299 Supervision of high risk in second trimester O09.92 Trimester: second trimester 33 weeks gestation of Z3A.33 Weeks of gestation: 33 weeks Neck pain M54.2 Assessment and Plan Assessment and Plan (1) Anemia affecting : Status: Acute Comment: PO iron. cbc in 4 weeks (2) UTI in : Status: Acute Qualifiers: Trimester: second trimester Qualified Code(s): O23.42 - Unspecified infection of urinary tract in , second trimester Comment: Dx [facility] urgent care. Needs rpt culture next visit (3) Abnormal ultrasound: Status: Acute Comment: CVI (normal variant) noted. MFM will bring back in 1 month to monitor Appt 12/26:RESOLVED (4) History of miscarriage, currently : Status: Acute (5) Supervision of high-risk : Status: Acute Qualifiers: Trimester: second trimester Qualified Code(s): O09.92 - Supervision of high risk , unspecified, second trimester Comment: PRR, , JOE 04/24/25, girl PC Miroslava, Dave (6) : Status: Acute Qualifiers: Weeks of gestation: 33 weeks Qualified Code(s): Z3A.33 - 33 weeks gestation of Comment: declined NIPT & Carrier testing (7) Neck pain: Status: Acute Orders: Orders POC Urinalysis 2 Dip (Clinic) Today CBC W/Diff, Automated Today O99.019 - Anemia complicating , unspecified trimester Plan Details Goals & Barriers: Goals Decrease pain Improve ROM Decrease inflammation Barriers Poor posture at work/baby 03/08/25 1041 e Velde DO> Date _ Farrah Manning DO [facility] Signature: Date (if applicable) CC: ~ [facility]06-20-2025 [facility] [address] [place] [address], [address] [place] [address] OFFICE VISIT Date of Service: 02/24/25 MR#: [id number] Acct: [id number] Name: EDEL GALLOWAY Rep #: [id number] : 1995 Provider: Dr. Delfino Rodas MD Age/Sex: 29/F Location: [facility] Status: Signed Intake Vital Signs 01/23/25 10:17 02/06/25 11:11 02/24/25 11:08 Height 5 ft 4 in 5 ft 4 in 5 ft 4 in Weight: 164 lb BMI 28.1 BP 126/79 H Intake Visit Reasons: 31wk ob Biometrics Technician Required: No Is patient in pain?: No Feel stressed/tense/nervous/anxious/difficulty sleeping: not at all Allergies No Known Allergies Allergy (Verified 02/24/25 11:09) Medications ?Medication ?Instructions ?Recorded ?Confirmed ?Type multivitamin no.47-iron fum 27 cap PO 09/27/24 5 History mg-folate no.1 1 mg-dha 300 mg capsule (PNV-DHA) metoclopramide HCl 10 mg tablet 10 mg PO Q6H PRN nause a and 11/18/24 02/24/25 Rx vomiting #14 tabs ondansetron 4 mg disintegrating 4 mg PO Q6H PRN nausea and 11/18/24 02/24/25 Rx tablet vomiting #30 tabs loratadine 10 mg tablet (Claritin) 10 mg PO QDAY 12/2802/24/25 History Last Menstrual Period: 07/18/24 Zika: Zika virus screening: Negative : No PFSH PFSH Medical History Conjunctivitis, right eye Hx of abnormal cervical Pap smear Complete Spotting Heartburn Non-smoker Cholelithiases Frequent headaches Surgical History History of laparoscopic cholecystectomy (~03/2022) Hx of wisdom tooth extraction Family History Mother Diabetes Hypertension Grandmother Heart disease Social History adopted: No household members: spouse and children number of children: 1 current occupational status: employed 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: Yes (bloodborne pathogens) pets and animals: Yes pets and animals: dog(s) history of recent travel: No ([place], [place]) sexually active: Yes Smoking Status: Never smoker alcohol intake: current alcohol intake frequency: a few times a month Alcohol type: beer and wine details: not while substance use type: does not use well-balanced diet: daily or most days caffeine: No eating out: 1-3 times/week during the past year weight has: increased > 10 lbs what type of physical activity do you participate in: walking frequency: 1-2 times per week duration: 15-30 minutes/day maynor/episcopal: None seatbelt use: always do you feel safe at home: Yes additional social history: - Dave History 3 Elective abortions Hx Para 1 Spontaneous abortions 1 Hx # Term Pregnancies Ectopic pregnancies Hx # Pregnancies Multiple births # of living children 1 Past Pregnancies Del. Date Name GA/Weeks Outcome Route Bth Weight Infant Gen Labor Lgth Anesthesia Del Locatn Provider FOB 11/20/22 miscarriage @5-6 wks 09/24/23 Delainey 40 live - full term 7#9oz Female ep idural [facility] Dr. Adrianna Acosta Delivery Date: 09/24/23 Last Updated by: Macrina TEJADA, vanishing twin, 2nd degree laceration HPI 31wk ob Details: EDEL GALLOWAY is a 29 year old who presents for routine OB visit. OB Visit JOE Calculator Estimated Delivery Date Method Current WG Current Estimate 04/24/25 LMP (Certain) 31w 4d Other Estimates 04/25/25 Ultrasound #1 31w 3d Expected Delivery Route/Plan Labor Preferences- CB/BF classes: [] labor support person: [] labor intervention preferences: [] pain management options preferred: [] cut cord/dad catch: [] : [] PP control planned: [] discussed possible routes of delivery and associated risks: [] special requests: [] Specific Issue/Plans Covid status: [] Flu vaccine: [] Tdap vaccine: [] Rhogam: [] LARC form signed: [] Problem list reviewed and updated with the most current plan of care details and appropriate ordersplaced. Relevant counseling for the gestational age provided. Continue routine care and follow up unless otherwise noted in visit notes/problem list details Initial Weight: Not Recorded Date -?-?-?-?-?-?-?-?-?-?-?-?- EGA Weight BP Urine Prot -?-?-?-?-?-?-?-?-?-?-?-?- Glucose FHR FuHt Pres Dilation -?-?-?-?-?-?-?-?-?-?-?-?- Effaced St Visit Note 10/05/24 -?-?-?-?-?-?-?-?-?-?-?-?- 11w 2d 164 lb 120/75 -?-?-?-?-?-?-?-?-?-?-?-?- 169 -?-?-?-?-?-?-?-?-?-?-?-?- JV- CRL is consi stent with LMP. She declines NIPT. wants to do anatomy scan [place] 11/02/24 -?-?-?-?-?-?-?-?-?-?-?-?- 15w 2d 160 lb 2 oz 122/85 Nega tive -?-?-?-?-?-?-?-?-?-?-?-?- Negative 150 -?-?-?-?-?-?-?-?-?-?-?-?- SM- no vb crampi ng 12/02/24 -?-?-?-?-?-?-?-?-?--?-?-?- 19w 4d 160 lb 2 oz 118/70 Nega tive -?-?-?-?-?-?-?-?-?-?-?-?- Negative 146 -?-?-?-?-?-?-?-?-?-?-?-?- -No VB. Luis cano. Repeat MFM US 12/26. 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 UA neg for infection. Has not been drinking much fluid and encouraged. Good Fm. No VB, LOF. 01/23/25 -?-?-?-?-?-?-?-?-?-?-?-?- 27w 0d 161 lb 8 oz 107/75 Nega tive -?-?-?-?-?-?-?-?-?-?-?-?- Negative 140 27 -?-?-?-?-?-?-?-?-?-?-?-?- KW- no vb/lof/ct x. good fm. glucose today. LARC today. 02/06/25 -?-?-?-?-?-?-?-?-?-?-?-?- 29w 0d 162 lb 4 oz 112/75 Nega tive -?-?-?-?-?-?-?-?-?-?-?-?- Negative 135 29 -?-?-?-?-?-?-?-?-?-?-?-?- KW-no vb/lof/ctx . good fm. anemic-will start taking PNV and get HGB rechecked. 02/24/25 -?-?-?-?-?-?-?-?-?-?-?-?- 31w 4d 164 lb 126/79 Negative -?-?-?-?-?-?-?-?-?-?-?-?- Negative 135 32 -?-?-?-?-?-?-?-?-?-?-?-?- SM- no vb lof go od fm irreuglar ctx ACOG First Trimester First Trimester: Discussed Second Trimester Second Trimester: Signs and Symptoms of Labor, Selecting a care provider, Reproductive Life Planning & Contreception and Intimate Partner Violence Third Trimester Third Trimester: Pain Management Plans, Labor support person(s), Immediate Larc, Signs and Symptoms of Preeclampsia, Education, Family Medical Leave or Disability Forms and Intimate Partner Violence; Discussed Tobacco Cessation and Discussed Depression Results POC Urinalysis 2 Dip (Clinic) Office Urine Glucose Negative Last Edit by Ida Bosch on 02/24/25 11:14 Office Urine Protein Negative Last Edit by Ida Bosch on 02/24/25 11:14 Coding Level of Care Code OB Routine Diagnoses Anemia affecting O99.019 Urinary tract infection in mother during second trimester of O23.42 Trimester: second trimester Abnormal ultrasound O28.3 History of miscarriage, currently O09.299 Supervision of high risk in second trimester O09.92 Trimester: second trimester 31 weeks gestation of Z3A.31 Weeks of gestation: 31 weeks Segmental and somatic dysfunction of sacral region M99.04 Segmental and somatic dysfunction of lumbar region M99.03 Segmental and somatic dysfunction of thoracic region M99.02 Segmental and somatic dysfunction of cervical region M99.01 Neck pain M54.2 Assessment and Plan Assessment and Plan (1) Anemia affecting : Status: Acute Comment: PO iron. cbc in 4 weeks (2) UTI in : Status: Acute Qualifiers: Trimester: second trimester Qualified Code(s): O23.42 - Unspecified infection of urinary tract in , second trimester Comment: Dx [facility] urgent care. Needs rpt culture next visit (3) Abnormal ultrasound: Status: Acute Comment: CVI (normal variant) noted. MFM will bring back in 1 month to monitor Appt 12/26:RESOLVED (4) History of miscarriage, currently : Status: Acute (5) Supervision of high-risk : Status: Acute Qualifiers: Trimester: second trimester Qualified Code(s): O09.92 - Supervision of high risk , unspecified, second trimester Comment: PRR, , JOE 04/24/25, girl JUDIE [place], Dave (6) : Status: Acute Qualifiers: Weeks of gestation: 31 weeks Qualified Code(s): Z3A.31 - 31 weeks gestation of Comment: declined NIPT & Carrier testing (7) Segmental and somatic dysfunction of sacral region: Status: Acute (8) Segmental and somatic dysfunction of lumbar region: Status: Acute (9) Segmental and somatic dysfunction of thoracic region: Status: Acute (10) Segmental and somatic dysfunction of cervical region: Status: Acute (11) Neck pain: Status: Acute Orders: Orders POC Urinalysis 2 Dip (Clinic) Today Plan Details Goals & Barriers: Goals Decrease pain Improve ROM Decrease inflammation Barriers Poor posture at work/baby 02/24/25 1145 florence HIGUERA> Date _ Crissy Rodas MD [facility] Signature: Date (if applicable) CC: ~ [id number] [facility] [address] [place] [address], [address] [place] [address] OFFICE VISIT Date of Service: 02/06/25 MR#: [id number] Acct: [id number] Name: EDEL GALLOWAY CHUY Rep #: [id number] : 1995 Provider: BRAYAN Daniel Age/Sex: 29/F Location: [facility] Status: Signed Intake Vital Signs 12/28/24 14:53 01/23/25 10:17 02/06/25 11:11 Height 5 ft 4 in 5 ft 4 in 5 ft 4 in Weight: 162 lb 4 oz BMI 27.8 BP 112/75 Intake Visit Reasons: 29 wk ob Chief Complaint: 29wk OB Biometrics Technician Required: No Is patient in pain?: No Allergies No Known Allergies Allergy (Verified 02/06/25 11:11) Medications ?Medication ?Instructions ?Recorded ?Confirmed ?Type multivitamin no.47-iron fum 27 cap PO 09/27/24 5 History mg-folate no.1 1 mg-dha 300 mg capsule (PNV-DHA) metoclopramide HCl 10 mg tablet 10 mg PO Q6H PRN nause a and 11/18/24 02/06/25 Rx vomiting #14 tabs ondansetron 4 mg disintegrating 4 mg PO Q6H PRN nausea and 11/18/24 02/06/25 Rx tablet vomiting #30 tabs loratadine 10 mg tablet (Claritin) 10 mg PO QDAY 12/2802/06/25 History Last Menstrual Period: 07/18/24 : No Have you fallen in the past year?: No PFSH PFSH Medical History Conjunctivitis, right eye Hx of abnormal cervical Pap smear Complete Spotting Heartburn Non-smoker Cholelithiases Frequent headaches Surgical History History of laparoscopic cholecystectomy (~03/2022) Hx of wisdom tooth extraction Family History Mother Diabetes Hypertension Grandmother Heart disease Social History adopted: No household members: spouse and children number of children: 1 current occupational status: employed 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: Yes (bloodborne pathogens) pets and animals: Yes pets and animals: dog(s) history of recent travel: No ([place], [place]) sexually active: Yes Smoking Status: Never smoker alcohol intake: current alcohol intake frequency: a few times a month Alcohol type: beer and wine details: not while substance use type: does not use well-balanced diet: daily or most days caffeine: No eating out: 1-3 times/week during the past year weight has: increased > 10 lbs what type of physical activity do you participate in: walking frequency: 1-2 times per week duration: 15-30 minutes/day maynor/episcopal: None seatbelt use: always do you feel safe at home: Yes additional social history: - Dave History 3 Elective abortions Hx Para 1 Spontaneous abortions 1 Hx # Term Pregnancies Ectopic pregnancies Hx # Pregnancies Multiple births # of living children 1 Past Pregnancies Del. Date Name GA/Weeks Outcome Route Bth Weight Gen Labor Lgth Anesthesia Del Joseatn Provider FOB 11/20/22 miscarriage @5-6 wks 09/24/23 Miroslava 40 live - full term 7#9oz Female ep idural [facility] Dr. Adrianna Acosta Delivery Date: 09/24/23 Last Updated by: Macrina Schwab COVID, vanishing twin, 2nd degree laceration HPI 29 wk ob Details: EDEL GALLOWAY is a 29 year old who presents for routine OB visit. OB Visit JOE Calculator Estimated Delivery Date Method Current WG Current Estimate 04/24/25 LMP (Certain) 29w 0d Other Estimates 04/25/25 Ultrasound #1 28w 6d Expected Delivery Route/Plan Labor Preferences- CB/BF classes: [] labor support person: [] labor intervention preferences: [] pain management options preferred: [] cut cord/dad catch: [] : [] PP control planned: [] discussed possible routes of delivery and associated risks: [] special requests: [] Specific Issue/Plans Covid status: [] Flu vaccine: [] Tdap vaccine: [] Rhogam: [] LARC form signed: [] Problem list reviewed and updated with the most current plan of care details and appropriate ordersplaced. Relevant counseling for the gestational age provided. Continue routine care and follow up unless otherwise noted in visit notes/problem list details Initial Weight: Not Recorded Date -?-?-?-?-?-?-?-?-?-?-?-?- EGA Weight BP Urine Prot -?-?-?-?-?-?-?-?-?-?-?-?- Glucose FHR FuHt Pres Dilation -?-?-?-?-?-?-?-?-?-?-?-?- Effaced St Visit Note 10/05/24 -?-?-?-?-?-?-?-?-?-?-?-?- 11w 2d 164 lb 120/75 -?-?-?-?-?-?-?-?-?-?-?-?- 169 -?-?-?-?-?-?-?-?-?-?-?-?- JV- CRL is consi stent with LMP. She declines NIPT. wants to do anatomy scan [place] 11/02/24 -?-?-?-?-?-?-?-?-?-?-?-?- 15w 2d 160 lb 2 oz 122/85 Nega tive -?-?-?-?-?-?-?-?-?-?-?--?- Negative 150 -?-?-?-?-?-?-?-?-?-?-?-?- SM- no vb crampi ng 12/02/24 -?-?-?-?-?-?-?-?-?-?-?-?- 19w 4d 160 lb 2 oz 118/70 Nega tive -?-?-?-?-?-?-?-?-?-?-?-?- Negative 146 -?-?-?-?-?-?-?-?-?-?-?-?- -No VB. Luis cano. Repeat MFM US 12/26. 12/28/24 -?-?-?-?-?-?--?-?-?-?-?-?- 23w 2d 159 lb 2 oz 110/74 Nega tive -?-?-?-?-?-?-?-?-?-?-?-?- Negative 143 23 -?-?-?-?-?-?-?-?-?-?-?-?- [facility] UA neg for infection. Has not been drinking much fluid and encouraged. Good Fm. No VB, LOF. 01/23/25 -?-?-?-?-?-?-?-?-?-?-?-?- 27w 0d 161 lb 8 oz 107/75 Nega tive -?-?-?-?-?-?-?-?-?-?-?-?- Negative 140 27 -?-?-?-?-?-?-?-?-?-?-?-?- KW- no vb/lof/ct x. good fm. glucose today. LARC today. 02/06/25 -?--?-?-?-?-?-?-?-?-?-?-?- 29w 0d 162 lb 4 oz 112/75 Nega tive -?-?-?-?-?-?-?-?-?-?-?-?- Negative 135 29 -?-?-?-?-?-?-?-?-?-?-?-?- KW-no vb/lof/ctx . good fm. anemic-will start taking PNV and get HGB rechecked. ACOG First Trimester First Trimester: Discussed Second Trimester Second Trimester: Signs and Symptoms of Labor, Selecting a care provider, Reproductive Life Planning & Contreception and Intimate Partner Violence Third Trimester Third Trimester: Pain Management Plans, Labor support person(s), Immediate Larc, Signs and Symptoms of Preeclampsia, [place] Education, Family Medical Leave or Disability Forms and Intimate Partner Violence; Discussed Tobacco Cessation and Discussed Depression ROS Const Reports system reviewed and no additional complaints, except as documented Eyes Reports system reviewed and no additional complaints, except as documented ENT Reports system reviewed and no additional complaints, except as documented Card Reports system reviewed and no additional complaints, except as documented Resp Reports system reviewed and no additional complaints, except as documented GI Reports system reviewed and no additional complaints, except as documented, Denies nausea and Denies vomiting Reports system reviewed and no additional complaints, except as documented Musc Reports system reviewed and no additional complaints, except as documented Skin/Breast Reports system reviewed and no additional complaints, except as documented Neuro Yes system reviewed and no additional complaints, except as documented Psych Reports system reviewed and no additional complaints, except as documented Endo Reports system reviewed and no additional complaints, except as documented James/Lymph Reports system reviewed and no additional complaints, except as documented Aller/Immun Reports system reviewed and no additional complaints, except as documented Exam Const General: cooperative, healthy appearing and no acute distress Orientation: alert, awake and oriented x3 Neck Neck: normal visual inspection and full ROM Resp Effort & Inspection: normal respiratory effort, able to speak in complete sentences and symmetric chest movement GI Inspection: normal to inspection Palpation: soft and other Other: gravid Skin General: no rashes or lesions noted Neuro General: patient alert, patient awake and patient oriented x3 Cognition: normal cognition Speech: speech normal Gait: normal gait Motor: muscle tone normal throughout Extrem General: normal to inspection and full ROM Psych Appearance: grossly normal Mental Status: mental status grossly normal Mood: congruent mood Affect: normal affect Speech and Movement: speech and movement normal Attitude: cooperative Thought Process: normal Thought Content: normal Judgment: judgment good Results POC Urinalysis 2 Dip (Clinic) Office Urine Glucose Negative Last Edit by Annita Espinosa on 02/06/25 11:19 Office Urine Protein Negative Last Edit by Annita Espinosa on 02/06/25 11:19 Immunizations Adacel(Tdap Adolesn/Adult)(PF) 2 Lf-(2.5-5-3-5)-5 Lf/0.5 mL IM syringe Performing Provider: Corina Daniel CNM Performing Location: [facility] Administered by: Annita Espinosa on 02/06/25 11:20 Dose Route Admin Location Dispensed Lot Number Expiration Date 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 mL IM Left Deltoid 0.5 mL [id number] 02/03/26 06776-206-30 [employer] VIS Given Date VIS Provided VIS Publication Date 02/06/25 Single Vaccine 24 Eligibility Eligibility Date Funding Source Not Applicable Coding Level of Care Code OB Routine Diagnoses Anemia affecting O99.019 Urinary tract infection in mother during second trimester of O23.42 Trimester: second trimester Abnormal ultrasound O28.3 History of miscarriage, currently O09.299 Supervision of high risk in second trimester O09.92 Trimester: second trimester 29 weeks gestation of Z3A.29 Weeks of gestation: 29 weeks Segmental and somatic dysfunction of sacral region M99.04 Segmental and somatic dysfunction of lumbar region M99.03 Segmental and somatic dysfunction of cervical region M99.01 Segmental and somatic dysfunction of thoracic region M99.02 Neck pain M54.2 Assessment and Plan Assessment and Plan (1) Anemia affecting : Status: Acute Comment: PO iron. cbc in 4 weeks (2) UTI in : Status: Acute Qualifiers: Trimester: second trimester Qualified Code(s): O23.42 - Unspecified infection of urinary tract in , second trimester Comment: Dx [facility] urgent care. Needs rpt culture next visit (3) Abnormal ultrasound: Status: Acute Comment: CVI (normal variant) noted. MFM will bring back in 1 month to monitor Appt 12/26:RESOLVED (4) History of miscarriage, currently : Status: Acute (5) Supervision of high-risk : Status: Acute Qualifiers: Trimester: second trimester Qualified Code(s): O09.92 - Supervision of high risk , unspecified, second trimester Comment: PRR, , JOE 04/24/25, PC Miroslava, Dave (6) : Status: Acute Qualifiers: Weeks of gestation: 29 weeks Qualified Code(s): Z3A.29 - 29 weeks gestation of Comment: declined NIPT & Carrier testing (7) Segmental and somatic dysfunction of sacral region: Status: Acute (8) Segmental and somatic dysfunction of lumbar region: Status: Acute (9) Segmental and somatic dysfunction of cervical region: Status: Acute (10) Segmental and somatic dysfunction of thoracic region: Status: Acute (11) Neck pain: Status: Acute Orders: Orders POC Urinalysis 2 Dip (Clinic) Today Tdap Immunization Today Z23 - Encounter for immunization Plan Details Additional Comments: ACOG trimester education reviewed and updated. see problem list details for updated plan management information and see below for orders placed atthis visit. GA appropriate handout given. Goals & Barriers: Goals Decrease pain Improve ROM Decrease inflammation Barriers Poor posture at work/baby Clinical Quality Measures Falls Risk Screening/Assistive Devices Have you fallen in the past year?: No 02/06/25 1134 s ELSY Date _ Corina Navarrete Signature: Date (if applicable) CC: ~ [facility]05-19-2025 [facility] [address] [place] [address], [address] [place] [address] OFFICE VISIT Date of Service: 01/23/25 MR#: [id number] Acct: [id number] Name: EDEL GALLOWAY Rep #: [id number] : 1995 Provider: BRAYAN Daniel Age/Sex: 29/F Location: [facility] Status: Signed Intake Vital Signs 12/02/24 09:59 12/28/24 14:53 01/23/25 10:17 Height 5 ft 4 in 5 ft 4 in 5 ft 4 in Weight: 161 lb 8 oz BMI 27.7 BP 107/75 Intake Visit Reasons: 27wk ob/glucose Chief Complaint: 27wk OB Biometrics Technician Required: No Is patient in pain?: No Allergies No Known Allergies Allergy (Verified 01/23/25 10:15) Medications ?Medication ?Instructions ?Recorded ?Confirmed ?Type multivitamin no.47-iron fum 27 cap PO 09/27/24 5 History mg-folate no.1 1 mg-dha 300 mg capsule (PNV-DHA) metoclopramide HCl 10 mg tablet 10 mg PO Q6H PRN nause a and 11/18/24 01/23/25 Rx vomiting #14 tabs ondansetron 4 mg disintegrating 4 mg PO Q6H PRN nausea and 11/18/24 01/23/25 Rx tablet vomiting #30 tabs loratadine 10 mg tablet (Claritin) 10 mg PO QDAY 12/2801/23/25 History Last Menstrual Period: 07/18/24 : No PFSH PFSH Medical History Conjunctivitis, right eye Hx of abnormal cervical Pap smear Complete Spotting Heartburn Non-smoker Cholelithiases Frequent headaches Surgical History History of laparoscopic cholecystectomy (~03/2022) Hx of wisdom tooth extraction Family History Mother Diabetes Hypertension Grandmother Heart disease Social History adopted: No household members: spouse and children number of children: 1 current occupational status: employed 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: Yes (bloodborne pathogens) pets and animals: Yes pets and animals: dog(s) history of recent travel: No ([place], [place]) sexually active: Yes Smoking Status: Never smoker alcohol intake: current alcohol intake frequency: a few times a month Alcohol type: beer and wine details: not while substance use type: does not use well-balanced diet: daily or most days caffeine: No eating out: 1-3 times/week during the past year weight has: increased > 10 lbs what type of physical activity do you participate in: walking frequency: 1-2 times per week duration: 15-30 minutes/day maynor/episcopal: None seatbelt use: always do you feel safe at home: Yes additional social history: - Dave History 3 Elective abortions Hx Para 1 Spontaneous abortions 1 Hx # Term Pregnancies Ectopic pregnancies Hx # Pregnancies Multiple births # of living children 1 Past Pregnancies Del. Date Name GA/Weeks Outcome Route Bth Weight Infant Gen Labor Lgth Anesthesia Del Locatn Provider FOB 11/20/22 miscarriage @5-6 wks 09/24/23 Delainey 40 live - full term 7#9oz Female ep idural [facility] Dr. Adrianna Acosta Delivery Date: 09/24/23 Last Updated by: Macrina Schwab COVID, vanishing twin, 2nd degree laceration HPI 27wk ob/glucose Details: EDEL GALLOWAY is a 29 year old who presents for routine OB visit. OB Visit JOE Calculator Estimated Delivery Date Method Current WG Current Estimate 04/24/25 LMP (Certain) 27w 0d Other Estimates 04/25/25 Ultrasound #1 26w 6d Expected Delivery Route/Plan Labor Preferences- CB/BF classes: [] labor support person: [] labor intervention preferences: [] pain management options preferred: [] cut cord/dad catch: [] : [] PP control planned: [] discussed possible routes of delivery and associated risks: [] special requests: [] Specific Issue/Plans Covid status: [] Flu vaccine: [] Tdap vaccine: [] Rhogam: [] LARC form signed: [] Problem list reviewed and updated with the most current plan of care details and appropriate ordersplaced. Relevant counseling for the gestational age provided. Continue routine care and follow up unless otherwise noted in visit notes/problem list details Initial Weight: Not Recorded Date -?-?-?-?-?-?-?-?-?-?-?-?- EGA Weight BP Urine Prot -?-?-?-?-?-?-?-?-?-?-?-?- Glucose FHR FuHt Pres Dilation -?-?-?-?-?-?-?-?-?-?-?-?- Effaced St Visit Note 10/05/24 -?-?-?-?-?-?-?-?-?-?-?-?- 11w 2d 164 lb 120/75 -?-?-?-?-?-?-?-?-?-?-?-?- 169 -?-?-?-?-?-?-?-?-?-?-?-?- JV- CRL is consi stent with LMP. She declines NIPT. [facility] -?-?-?-?-?-?-?-?-?-?-?-?- 15w 2d 160 lb 2 oz 122/85 Nega tive -?-?-?-?-?-?-?-?-?-?-?-?- Negative 150 -?-?-?-?-?-?-?-?-?-?-?-?- - no vb crampi ng 12/02/24 -?-?-?-?-?-?-?-?-?-?-?-?- 19w 4d 160 lb 2 oz 118/70 Nega tive -?-?-?-?-?-?-?-?-?-?-?-?- Negative 146 -?-?-?-?-?-?-?-?-?-?-?-?- -No VB. Luis cano. Repeat MFM US 12/26. 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 UA neg for infection. Has not been drinking much fluid and encouraged. Good Fm. No VB, LOF. 01/23/25 -?-?-?-?-?-?-?-?-?-?-?-?- 27w 0d 161 lb 8 oz 107/75 Nega tive -?-?-?-?-?-?-?-?-?-?-?-?- Negative 140 27 -?-?-?-?-?-?-?-?-?-?-?-?- KW- no vb/lof/ct x. good fm. glucose today. LARC today. ACOG First Trimester First Trimester: Discussed Second Trimester Second Trimester: Signs and Symptoms of Labor, Selecting a care provider, Reproductive Life Planning & Contreception and Intimate Partner Violence Third Trimester Third Trimester: Pain Management Plans, Labor support person(s), Immediate Larc, Signs and Symptoms of Preeclampsia, [place] Education, Family Medical Leave or Disability Forms and Intimate Partner Violence; Discussed Tobacco Cessation and Discussed Depression ROS Const Reports system reviewed and no additional complaints, except as documented Eyes Reports system reviewed and no additional complaints, except as documented ENT Reports system reviewed and no additional complaints, except as documented Card Reports system reviewed and no additional complaints, except as documented Resp Reports system reviewed and no additional complaints, except as documented GI Reports system reviewed and no additional complaints, except as documented, Denies nausea and Denies vomiting Reports system reviewed and no additional complaints, except as documented Musc Reports system reviewed and no additional complaints, except as documented Skin/Breast Reports system reviewed and no additional complaints, except as documented Neuro Yes system reviewed and no additional complaints, except as documented Psych Reports system reviewed and no additional complaints, except as documented Endo Reports system reviewed and no additional complaints, except as documented James/Lymph Reports system reviewed and no additional complaints, except as documented Aller/Immun Reports system reviewed and no additional complaints, except as documented Exam Const General: cooperative, healthy appearing and no acute distress Orientation: alert, awake and oriented x3 Neck Neck: normal visual inspection and full ROM Resp Effort & Inspection: normal respiratory effort, able to speak in complete sentences and symmetric chest movement GI Inspection: normal to inspection Palpation: soft and other Other: gravid Skin General: no rashes or lesions noted Neuro General: patient alert, patient awake and patient oriented x3 Cognition: normal cognition Speech: speech normal Gait: normal gait Motor: muscle tone normal throughout Extrem General: normal to inspection and full ROM Psych Appearance: grossly normal Mental Status: mental status grossly normal Mood: congruent mood Affect: normal affect Speech and Movement: speech and movement normal Attitude: cooperative Thought Process: normal Thought Content: normal Judgment: judgment good Results POC Urinalysis 2 Dip (Clinic) Office Urine Glucose Negative Last Edit by Annita Espinosa on 01/23/25 10:26 Office Urine Protein Negative Last Edit by Annita Espinosa on 01/23/25 10:26 Coding Level of Care Code OB Routine Diagnoses Urinary tract infection in mother during second trimester of O23.42 Trimester: second trimester Abnormal ultrasound O28.3 History of miscarriage, currently O09.299 Supervision of high risk in second trimester O09.92 Trimester: second trimester 27 weeks gestation of Z3A.27 Weeks of gestation: 27 weeks Segmental and somatic dysfunction of sacral region M99.04 Segmental and somatic dysfunction of lumbar region M99.03 Segmental and somatic dysfunction of thoracic region M99.02 Segmental and somatic dysfunction of cervical region M99.01 Neck pain M54.2 Assessment and Plan Assessment and Plan (1) UTI in : Status: Acute Qualifiers: Trimester: second trimester Qualified Code(s): O23.42 - Unspecified infection of urinary tract in , second trimester Comment: Dx [facility] urgent care. Needs rpt culture next visit (2) Abnormal ultrasound: Status: Acute Comment: CVI (normal variant) noted. MFM will bring back in 1 month to monitor Appt 12/26:RESOLVED (3) History of miscarriage, currently : Status: Acute (4) Supervision of high-risk : Status: Acute Qualifiers: Trimester: second trimester Qualified Code(s): O09.92 - Supervision of high risk , unspecified, second trimester Comment: PRR, , JOE 04/24/25, PC Miroslava, Dave (5) : Status: Acute Qualifiers: Weeks of gestation: 27 weeks Qualified Code(s): Z3A.27 - 27 weeks gestation of Comment: declined NIPT & Carrier testing (6) Segmental and somatic dysfunction of sacral region: Status: Acute (7) Segmental and somatic dysfunction of lumbar region: Status: Acute (8) Segmental and somatic dysfunction of thoracic region: Status: Acute (9) Segmental and somatic dysfunction of cervical region: Status: Acute (10) Neck pain: Status: Acute Orders: Orders POC Urinalysis 2 Dip (Clinic) Today Plan Details Additional Comments: ACOG trimester education reviewed and updated. see problem list details for updated plan management information and see below for orders placed atthis visit. GA appropriate handout given. Goals & Barriers: Goals Decrease pain Improve ROM Decrease inflammation Barriers Poor posture at work/baby 01/23/25 1033 s CNM> Date _ Corina Daniel CNM Cosigner Signature: Date (if applicable) CC: ~ [facility]04-23-2025 Evaluation note* Diagnosis Onset Date Resolution Status Admit Date History of miscarriage, currently acute December 28, 025 3:23pm acute December 28 3:23pm Supervision of high-risk acute December 28, 2024 3:23pm UTI in acute December 282024 3:23pm Abnormal ultrasound acute January 23, 2025 9:58am History of miscarriage, currently acute January 23 9:58am Neck pain acute January 23, 2025 9:58am acute January 23, 2025 9:58am Segmental and somatic dysfunction of cervical region acute 2024 9:58am Segmental and somatic dysfunction of lumbar region acute January 23, 2025 9:58am Segmental and somatic dysfunction of sacral region acute January 23, 2025 9:58am Segmental and somatic dysfunction of thoracic region acute 2024 9:58am Supervision of high-risk acute January 23, 2025 9 :58am UTI in acute January 9:58am Abnormal ultrasound acute February 06, 2025 11:09am Anemia affecting acute February 06, 2025 11:09am History of miscarriage, currently acute February 06 11:09am Neck pain acute February 06, 2025 11:09am acute February 06, 2025 11:09am Segmental and somatic dysfunction of cervical region acute J une 2024 11:09am Segmental and somatic dysfunction of lumbar region acute Kyle e 2024 11:09am Segmental and somatic dysfunction of sacral region acute Kyle e 2024 11:09am Segmental and somatic dysfunction of thoracic region acute J une 2024 11:09am Supervision of high-risk acute February 06, 2025 1 1:09am UTI in acute February 11:09am Abnormal ultrasound acute February 24, 2025 11:05am Anemia affecting acute February 24, 2025 11:05am History of miscarriage, currently acute February 24 11:05am Neck pain acute February 24 11:05am acute February 24 11:05am Segmental and somatic dysfunction of cervical region acute J [facility] 2024 11:05am Segmental and somatic dysfunction of lumbar region acute Kyle 2024 11:05am Segmental and somatic dysfunction of sacral region acute Kyle e 2024 11:05am Segmental and somatic dysfunction of thoracic region acute J [facility] 2024 11:05am Supervision of high-risk acute February 24, 2025 11:05am UTI in acute February 11:05am Abnormal ultrasound acute March 08, 2025 10:02am Anemia affecting acute March 08, 2025 10:02am History of miscarriage, currently acute March 08 10:02am Neck pain acute March 08, 2025 10:02am acute March 08, 2025 10:02am Supervision of high-risk acute March 08, 2025 1 0:02am UTI in acute March 10:02am Abnormal ultrasound acute March 20, 2025 9:33am Anemia affecting acute March 20, 2025 9:33am History of miscarriage, currently acute March 20 9:33am acute March 20 9:33am Supervision of high-risk acute March 20, 2025 9:33am UTI in acute March 9:33am Maxillary sinusitis acute March 26, 2025 8:48am Abnormal ultrasound acute March 30, 2025 2:44pm Anemia affecting acute March 30, 2025 2:44pm History of miscarriage, currently acute March 30 2:44pm Maxillary sinusitis acute March 30, 2025 2:44pm Neck pain acute March 30 2:44pm acute March 30 2:44pm Segmental and somatic dysfunction of cervical region acute [email or web address] 2:44pm Segmental and somatic dysfunction of lumbar region acute Mar 2:44pm Segmental and somatic dysfunction of sacral region acute Mar 2:44pm Segmental and somatic dysfunction of thoracic region acute 2024 2:44pm Supervision of high-risk acute March 30, 2025 2:44pm UTI in acute March 2:44pm Abnormal ultrasound acute April 03, 2025 10:17am Anemia affecting acute April 03, 2025 10:17am History of miscarriage, currently acute April 03 10:17am Maxillary sinusitis acute April 03, 2025 10:17am Neck pain acute April 03 10:17am acute April 03 10:17am Segmental and somatic dysfunction of cervical region acute [email or web address] 10:17am Segmental and somatic dysfunction of lumbar region acute Mar 10:17am Segmental and somatic dysfunction of sacral region acute Mar 10:17am Segmental and somatic dysfunction of thoracic region acute [email or web address] 10:17am Supervision of high-risk acute April 03, 2025 10:17am UTI in acute March 10:17am [facility] Work Phone: 1(888) 673-623704-23-2025 Evaluation note* Diagnosis Onset Date Resolution Status Admit Date History of miscarriage, currently acute December 28, 2 025 3:23pm acute December 28 3:23pm Supervision of high-risk acute December 28, 2024 3:23pm UTI in acute December 282024 3:23pm Abnormal ultrasound acute January 23, 2025 9:58am History of miscarriage, currently acute January 23 9:58am Neck pain acute January 23, 2025 9:58am acute January 23, 2025 9:58am Segmental and somatic dysfunction of cervical region acute [facility] 2024 9:58am Segmental and somatic dysfunction of lumbar region acute January 23, 2025 9:58am Segmental and somatic dysfunction of sacral region acute January 23, 2025 9:58am Segmental and somatic dysfunction of thoracic region acute [facility] 2024 9:58am Supervision of high-risk acute January 23, 2025 9 :58am UTI in acute January 9:58am Abnormal ultrasound acute February 06, 2025 11:09am Anemia affecting acute February 06, 2025 11:09am History of miscarriage, currently acute February 06 11:09am Neck pain acute February 06, 2025 11:09am acute February 06, 2025 11:09am Segmental and somatic dysfunction of cervical region acute J [facility] 2024 11:09am Segmental and somatic dysfunction of lumbar region acute Feb 11:09am Segmental and somatic dysfunction of sacral region acute Kyle e 2024 11:09am Segmental and somatic dysfunction of thoracic region acute J [facility] 2024 11:09am Supervision of high-risk acute February 06, 2025 1 1:09am UTI in acute February 11:09am Abnormal ultrasound acute February 24, 2025 11:05am Anemia affecting acute February 24, 2025 11:05am History of miscarriage, currently acute February 24 11:05am Neck pain acute February 24 11:05am acute February 24 11:05am Segmental and somatic dysfunction of cervical region acute J une 2024 11:05am Segmental and somatic dysfunction of lumbar region acute Kyle e 2024 11:05am Segmental and somatic dysfunction of sacral region acute Kyle e 2024 11:05am Segmental and somatic dysfunction of thoracic region acute J une 2024 11:05am Supervision of high-risk acute February 24, 2025 11:05am UTI in acute February 11:05am Abnormal ultrasound acute March 08, 2025 10:02am Anemia affecting acute March 08, 2025 10:02am History of miscarriage, currently acute March 08 10:02am Neck pain acute March 08, 2025 10:02am acute March 08, 2025 10:02am Supervision of high-risk acute March 08, 2025 1 0:02am UTI in acute March 10:02am Abnormal ultrasound acute March 20, 2025 9:33am Anemia affecting acute March 20, 2025 9:33am History of miscarriage, currently acute March 20 9:33am acute March 20 9:33am Supervision of high-risk acute March 20, 2025 9:33am UTI in acute March 9:33am Maxillary sinusitis deleted March 26, 2025 8:48am Abnormal ultrasound acute March 30, 2025 2:44pm Anemia affecting acute March 30, 2025 2:44pm History of miscarriage, currently acute March 30 2:44pm Neck pain acute March 30 2:44pm acute March 30 2:44pm Segmental and somatic dysfunction of cervical region acute J [email or web address] 2:44pm Segmental and somatic dysfunction of lumbar region acute Mar 2:44pm Segmental and somatic dysfunction of sacral region acute Mar 2:44pm Segmental and somatic dysfunction of thoracic region acute J [email or web address] 2:44pm Supervision of high-risk acute March 30, 2025 2:44pm UTI in acute March 2:44pm Maxillary sinusitis deleted March 30, 2025 2:44pm Abnormal ultrasound acute April 03, 2025 10:17am Anemia affecting acute April 03, 2025 10:17am History of miscarriage, currently acute April 03 10:17am Neck pain acute April 03 10:17am acute April 03 10:17am Segmental and somatic dysfunction of cervical region acute J [email or web address] 10:17am Segmental and somatic dysfunction of lumbar region acute Mar 10:17am Segmental and somatic dysfunction of sacral region acute Mar 10:17am Segmental and somatic dysfunction of thoracic region acute J [email or web address] 10:17am Supervision of high-risk acute April 03, 2025 10:17am UTI in acute March 10:17am Maxillary sinusitis deleted April 03, 2025 10:17am Abnormal ultrasound acute April 13, 2025 10:02am Anemia affecting acute April 13, 2025 10:02am Decreased movement acute April 13, 2025 10:02am History of miscarriage, currently acute April 13, 2 025 10:02am acute April 13 10:02am Supervision of high-risk acute April 13, 2025 10:02am UTI in acute April 132024 10:02am Maxillary sinusitis deleted 2024 10:02am [facility] Work Phone: 1(164) 603-510304-23-2025 Evaluation note* Diagnosis Onset Date Resolution Status Admit Date History of miscarriage, currently acute December 28, 2 025 3:23pm acute December 28 3:23pm Supervision of high-risk acute December 28, 2024 3:23pm UTI in acute December 282024 3:23pm History of miscarriage, currently acute January 23 9:58am Neck pain acute January 23, 2025 9:58am acute January 23, 2025 9:58am Segmental and somatic dysfunction of cervical region acute 2024 9:58am Segmental and somatic dysfunction of lumbar region acute January 23, 2025 9:58am Segmental and somatic dysfunction of sacral region acute January 23, 2025 9:58am Segmental and somatic dysfunction of thoracic region acute 2024 9:58am Supervision of high-risk acute January 23, 2025 9 :58am UTI in acute January 9:58am Abnormal ultrasound resolved January 23, 2025 9:58am Anemia affecting acute February 06, 2025 11:09am History of miscarriage, currently acute February 06 11:09am Neck pain acute February 06, 2025 11:09am acute February 06, 2025 11:09am Segmental and somatic dysfunction of cervical region acute J une 2024 11:09am Segmental and somatic dysfunction of lumbar region acute Feb 11:09am Segmental and somatic dysfunction of sacral region acute Kyle e 2024 11:09am Segmental and somatic dysfunction of thoracic region acute J une 2024 11:09am Supervision of high-risk acute February 06, 2025 1 1:09am UTI in acute February 11:09am Abnormal ultrasound resolved February 06, 2025 11:09am Anemia affecting acute February 24, 2025 11:05am History of miscarriage, currently acute February 24 11:05am Neck pain acute February 24 11:05am acute February 24 11:05am Segmental and somatic dysfunction of cervical region acute J une 2024 11:05am Segmental and somatic dysfunction of lumbar region acute Kyle e 2024 11:05am Segmental and somatic dysfunction of sacral region acute Kyle e 2024 11:05am Segmental and somatic dysfunction of thoracic region acute J une 2024 11:05am Supervision of high-risk acute February 24, 2025 11:05am UTI in acute February 11:05am Abnormal ultrasound resolved February 24, 2025 11:05am Anemia affecting acute March 08, 2025 10:02am History of miscarriage, currently acute March 08 10:02am Neck pain acute March 08, 2025 10:02am acute March 08, 2025 10:02am Supervision of high-risk acute March 08, 2025 1 0:02am UTI in acute March 10:02am Abnormal ultrasound resolved March 08, 2025 10:02am Anemia affecting acute March 20, 2025 9:33am History of miscarriage, currently acute March 20 9:33am acute March 20 9:33am Supervision of high-risk acute March 20, 2025 9:33am UTI in acute March 9:33am Abnormal ultrasound resolved March 20, 2025 9:33am Maxillary sinusitis deleted March 26, 2025 8:48am Anemia affecting acute March 30, 2025 2:44pm History of miscarriage, currently acute March 30 2:44pm Neck pain acute March 30 2:44pm acute March 30 2:44pm Segmental and somatic dysfunction of cervical region acute J raine 2024 2:44pm Segmental and somatic dysfunction of lumbar region acute Mar 2:44pm Segmental and somatic dysfunction of sacral region acute Mar 2:44pm Segmental and somatic dysfunction of thoracic region acute J [email or web address] 2:44pm Supervision of high-risk acute March 30, 2025 2:44pm UTI in acute March 2:44pm Abnormal ultrasound resolved March 30, 2025 2:44pm Maxillary sinusitis deleted March 30, 2025 2:44pm Anemia affecting acute April 03, 2025 10:17am History of miscarriage, currently acute April 03 10:17am Neck pain acute April 03 10:17am acute April 03 10:17am Segmental and somatic dysfunction of cervical region acute J 2024 10:17am Segmental and somatic dysfunction of lumbar region acute Mar 10:17am Segmental and somatic dysfunction of sacral region acute Mar 10:17am Segmental and somatic dysfunction of thoracic region acute J [email or web address] 10:17am Supervision of high-risk acute April 03, 2025 10:17am UTI in acute March 10:17am Abnormal ultrasound resolved April 03, 2025 10:17am Maxillary sinusitis deleted April 03, 2025 10:17am Anemia affecting acute April 13, 2025 10:02am History of miscarriage, currently acute April 13 10:02am acute April 13 10:02am Supervision of high-risk acute April 13, 2025 10:02am UTI in acute April 132024 10:02am Abnormal ultrasound resolved April 13, 2025 10:02am Decreased movement resolved April 13, 2025 10:02am Maxillary sinusitis deleted 2024 10:02am Anemia affecting acute April 17, 2025 9:31am History of miscarriage, currently acute April 17, 2025 9:31am Neck pain acute April 17, 9:31am acute April 17 9:31am Segmental and somatic dysfunction of cervical region acute A ugust 2024 9:31am Segmental and somatic dysfunction of lumbar region acute Aug ust 2024 9:31am Segmental and somatic dysfunction of sacral region acute Aug ust 2024 9:31am Segmental and somatic dysfunction of thoracic region acute A ugust 2024 9:31am Supervision of high-risk acute April 17 9:31am UTI in acute April 072024 9:31am Abnormal ultrasound resolved April 17, 2025 9:31am [facility] Work Phone: 1(933) 704-640003-28-2025 Evaluation note* Diagnosis Onset Date Resolution Status Admit Date Abnormal ultrasound acute December 02, 2024 9:53am History of miscarriage, currently acute December 02, 2 025 9:53am acute December 02 9:53am Supervision of high-risk acute December 02, 2024 9:53am History of miscarriage, currently acute December 28, 2 025 3:23pm acute December 28 3:23pm Supervision of high-risk acute December 28, 2024 3:23pm UTI in acute December 282024 3:23pm Abnormal ultrasound acute January 23, 2025 9:58am History of miscarriage, currently acute January 23 9:58am Neck pain acute January 23, 2025 9:58am acute January 23, 2025 9:58am Segmental and somatic dysfunction of cervical region acute M ay 2024 9:58am Segmental and somatic dysfunction of lumbar region acute January 23, 2025 9:58am Segmental and somatic dysfunction of sacral region acute January 23, 2025 9:58am Segmental and somatic dysfunction of thoracic region acute M ay 2024 9:58am Supervision of high-risk acute January 23, 2025 9 :58am UTI in acute January 9:58am Abnormal ultrasound acute February 06, 2025 11:09am Anemia affecting acute February 06, 2025 11:09am History of miscarriage, currently acute February 06 11:09am Neck pain acute February 06, 2025 11:09am acute February 06, 2025 11:09am Segmental and somatic dysfunction of cervical region acute J une 2024 11:09am Segmental and somatic dysfunction of lumbar region acute Kyle e 2024 11:09am Segmental and somatic dysfunction of sacral region acute Kyle e 2024 11:09am Segmental and somatic dysfunction of thoracic region acute J une 2024 11:09am Supervision of high-risk acute February 06, 2025 1 1:09am UTI in acute February 11:09am Abnormal ultrasound acute February 24, 2025 11:05am Anemia affecting acute February 24, 2025 11:05am History of miscarriage, currently acute February 24 11:05am Neck pain acute February 24 11:05am acute February 24 11:05am Segmental and somatic dysfunction of cervical region acute J une 2024 11:05am Segmental and somatic dysfunction of lumbar region acute Kyle 2024 11:05am Segmental and somatic dysfunction of sacral region acute Kyle 2024 11:05am Segmental and somatic dysfunction of thoracic region acute J une 2024 11:05am Supervision of high-risk acute February 24, 2025 11:05am UTI in acute February 11:05am Abnormal ultrasound acute March 08, 2025 10:02am Anemia affecting acute March 08, 2025 10:02am History of miscarriage, currently acute March 08 10:02am Neck pain acute March 08, 2025 10:02am acute March 08, 2025 10:02am Supervision of high-risk acute March 08, 2025 1 0:02am UTI in acute March 10:02am [facility] Work Phone: 1(846) 871-984903-28-2025 Evaluation note* Diagnosis Onset Date Resolution Status Admit Date Abnormal ultrasound acute December 02, 2024 9:53am History of miscarriage, currently acute December 02, 2 025 9:53am acute December 02 9:53am Supervision of high-risk acute December 02, 2024 9:53am History of miscarriage, currently acute December 28, 2 025 3:23pm acute December 28 3:23pm Supervision of high-risk acute December 28, 2024 3:23pm UTI in acute December 282024 3:23pm Abnormal ultrasound acute January 23, 2025 9:58am History of miscarriage, currently acute January 23 9:58am Neck pain acute January 23, 2025 9:58am acute January 23, 2025 9:58am Segmental and somatic dysfunction of cervical region acute [facility] 2024 9:58am Segmental and somatic dysfunction of lumbar region acute January 23, 2025 9:58am Segmental and somatic dysfunction of sacral region acute January 23, 2025 9:58am Segmental and somatic dysfunction of thoracic region acute [facility] 2024 9:58am Supervision of high-risk acute January 23, 2025 9 :58am UTI in acute January 9:58am Abnormal ultrasound acute February 06, 2025 11:09am Anemia affecting acute February 06, 2025 11:09am History of miscarriage, currently acute February 06 11:09am Neck pain acute February 06, 2025 11:09am acute February 06, 2025 11:09am Segmental and somatic dysfunction of cervical region acute [facility] 2024 11:09am Segmental and somatic dysfunction of lumbar region acute Feb 11:09am Segmental and somatic dysfunction of sacral region acute [facility] 2024 11:09am Segmental and somatic dysfunction of thoracic region acute [facility] 2024 11:09am Supervision of high-risk acute February 06, 2025 1 1:09am UTI in acute February 11:09am Abnormal ultrasound acute February 24, 2025 11:05am Anemia affecting acute February 24, 2025 11:05am History of miscarriage, currently acute February 24 11:05am Neck pain acute February 24 11:05am acute February 24 11:05am Segmental and somatic dysfunction of cervical region acute [facility] 2024 11:05am Segmental and somatic dysfunction of lumbar region acute Feb 11:05am Segmental and somatic dysfunction of sacral region acute Feb 11:05am Segmental and somatic dysfunction of thoracic region acute [facility] 2024 11:05am Supervision of high-risk acute February 24, 2025 11:05am UTI in acute February 11:05am Abnormal ultrasound acute March 08, 2025 10:02am Anemia affecting acute March 08, 2025 10:02am History of miscarriage, currently acute March 08 10:02am Neck pain acute March 08, 2025 10:02am acute March 08, 2025 10:02am Supervision of high-risk acute March 08, 2025 1 0:02am UTI in acute March 10:02am Abnormal ultrasound acute March 20, 2025 9:33am Anemia affecting acute March 20, 2025 9:33am History of miscarriage, currently acute March 20 9:33am acute March 20 9:33am Supervision of high-risk acute March 20, 2025 9:33am UTI in acute March 9:33am [facility] Work Phone: 1(506) 971-711703-28-2025 Evaluation note* Diagnosis Onset Date Resolution Status Admit Date Abnormal ultrasound acute December 02, 2024 9:53am History of miscarriage, currently acute December 02, 2 025 9:53am acute December 02 9:53am Supervision of high-risk acute December 02, 2024 9:53am History of miscarriage, currently acute December 28, 2 025 3:23pm acute December 28 3:23pm Supervision of high-risk acute December 28, 2024 3:23pm UTI in acute December 282024 3:23pm Abnormal ultrasound acute January 23, 2025 9:58am History of miscarriage, currently acute January 23 9:58am Neck pain acute January 23, 2025 9:58am acute January 23, 2025 9:58am Segmental and somatic dysfunction of cervical region acute 2024 9:58am Segmental and somatic dysfunction of lumbar region acute January 23, 2025 9:58am Segmental and somatic dysfunction of sacral region acute January 23, 2025 9:58am Segmental and somatic dysfunction of thoracic region acute 2024 9:58am Supervision of high-risk acute January 23, 2025 9 :58am UTI in acute January 9:58am Abnormal ultrasound acute February 06, 2025 11:09am Anemia affecting acute February 06, 2025 11:09am History of miscarriage, currently acute February 06 11:09am Neck pain acute February 06, 2025 11:09am acute February 06, 2025 11:09am Segmental and somatic dysfunction of cervical region acute [facility] 2024 11:09am Segmental and somatic dysfunction of lumbar region acute [facility] 2024 11:09am Segmental and somatic dysfunction of sacral region acute [facility] 2024 11:09am Segmental and somatic dysfunction of thoracic region acute [facility] 2024 11:09am Supervision of high-risk acute February 06, 2025 1 1:09am UTI in acute February 11:09am Abnormal ultrasound acute February 24, 2025 11:05am Anemia affecting acute February 24, 2025 11:05am History of miscarriage, currently acute February 24 11:05am Neck pain acute February 24 11:05am acute February 24 11:05am Segmental and somatic dysfunction of cervical region acute [facility] 2024 11:05am Segmental and somatic dysfunction of lumbar region acute [facility] 2024 11:05am Segmental and somatic dysfunction of sacral region acute [facility] 2024 11:05am Segmental and somatic dysfunction of thoracic region acute [facility] 2024 11:05am Supervision of high-risk acute February 24, 2025 11:05am UTI in acute February 11:05am Abnormal ultrasound acute March 08, 2025 10:02am Anemia affecting acute March 08, 2025 10:02am History of miscarriage, currently acute March 08 10:02am Neck pain acute March 08, 2025 10:02am acute March 08, 2025 10:02am Supervision of high-risk acute March 08, 2025 1 0:02am UTI in acute March 10:02am Abnormal ultrasound acute March 20, 2025 9:33am Anemia affecting acute March 20, 2025 9:33am History of miscarriage, currently acute March 20, 9:33am acute March 20 9:33am Supervision of high-risk acute March 20, 2025 9:33am UTI in acute March 9:33am Maxillary sinusitis acute March 26, 2025 8:48am [facility] Work Phone: 1(499) 515-812503-28-2025 Evaluation note* Diagnosis Onset Date Resolution Status Admit Date Abnormal ultrasound acute December 02, 2024 9:53am History of miscarriage, currently acute December 02, 2 025 9:53am acute December 02 9:53am Supervision of high-risk acute December 02, 2024 9:53am History of miscarriage, currently acute December 28, 2 025 3:23pm acute December 28 3:23pm Supervision of high-risk acute December 28, 2024 3:23pm UTI in acute December 282024 3:23pm Abnormal ultrasound acute January 23, 2025 9:58am History of miscarriage, currently acute January 23 9:58am Neck pain acute January 23, 2025 9:58am acute January 23, 2025 9:58am Segmental and somatic dysfunction of cervical region acute [facility] 2024 9:58am Segmental and somatic dysfunction of lumbar region acute January 23, 2025 9:58am Segmental and somatic dysfunction of sacral region acute January 23, 2025 9:58am Segmental and somatic dysfunction of thoracic region acute [facility] 2024 9:58am Supervision of high-risk acute January 23, 2025 9 :58am UTI in acute January 9:58am Abnormal ultrasound acute February 06, 2025 11:09am Anemia affecting acute February 06, 2025 11:09am History of miscarriage, currently acute February 06 11:09am Neck pain acute February 06, 2025 11:09am acute February 06, 2025 11:09am Segmental and somatic dysfunction of cervical region acute [facility] 2024 11:09am Segmental and somatic dysfunction of lumbar region acute Feb 11:09am Segmental and somatic dysfunction of sacral region acute Feb 11:09am Segmental and somatic dysfunction of thoracic region acute [facility] 2024 11:09am Supervision of high-risk acute February 06, 2025 1 1:09am UTI in acute February 11:09am Abnormal ultrasound acute February 24, 2025 11:05am Anemia affecting acute February 24, 2025 11:05am History of miscarriage, currently acute February 24 11:05am Neck pain acute February 24 11:05am acute February 24 11:05am Segmental and somatic dysfunction of cervical region acute [facility] 2024 11:05am Segmental and somatic dysfunction of lumbar region acute Feb 11:05am Segmental and somatic dysfunction of sacral region acute Feb 11:05am Segmental and somatic dysfunction of thoracic region acute [facility] 2024 11:05am Supervision of high-risk acute February 24, 2025 11:05am UTI in acute February 11:05am Abnormal ultrasound acute March 08, 2025 10:02am Anemia affecting acute March 08, 2025 10:02am History of miscarriage, currently acute March 08 10:02am Neck pain acute March 08, 2025 10:02am acute March 08, 2025 10:02am Supervision of high-risk acute March 08, 2025 1 0:02am UTI in acute March 10:02am Abnormal ultrasound acute March 20, 2025 9:33am Anemia affecting acute March 20, 2025 9:33am History of miscarriage, currently acute March 20 9:33am acute March 20 9:33am Supervision of high-risk acute March 20, 2025 9:33am UTI in acute March 9:33am Maxillary sinusitis acute March 26, 2025 8:48am Abnormal ultrasound acute March 30, 2025 2:44pm Anemia affecting acute March 30, 2025 2:44pm History of miscarriage, currently acute March 30 2:44pm Maxillary sinusitis acute March 30, 2025 2:44pm Neck pain acute March 30 2:44pm acute March 30 2:44pm Segmental and somatic dysfunction of cervical region acute [facility] 2024 2:44pm Segmental and somatic dysfunction of lumbar region acute Mar 2:44pm Segmental and somatic dysfunction of sacral region acute Mar 2024 2:44pm Segmental and somatic dysfunction of thoracic region acute [facility] 2024 2:44pm Supervision of high-risk acute March 30, 2025 2:44pm UTI in acute March 2:44pm [facility] Work Phone: [phone]) [phone] Miscellaneous Notes* Telephone Encounter - Seda Reyes LPN - 11/19/2024 11:15 AM EDT Explained results to patient. Explained to use medications as prescribed and OTC that is approved by her gyno. If patient isn't getting better she would need to follow up with her primary or gyno. Patient stated understanding and voices no other concerns at this time. Seda Reyes LPN * Telephone Encounter - Seda Reyes LPN - 11/19/2024 11:13 AM EDT ----- Message from Wenceslao Short APRN.HEALTH PHYSICIST sent at 11/19/2024 9:03 AM EDT ----- Patient is positive for influenza A. She was prescribed Tamiflu by her academic success coordinator. She could use [id number]-[id number] medications that are appropriate during for her other symptoms. Please inform her of the positive test she is negative for COVID, influenza B and RSV. [facility] Telephone encounter Note * Telephone Encounter - Seda Reyes LPN - 11/19/2024 11:15 AM EDT Explained results to patient. Explained to use medications as prescribed and OTC that is approved by her gyno. If patient isn't getting better she would need to follow up with her primary or gyno. Patient stated understanding and voices no other concerns at this time. Seda Reyes LPN [facility]03-15-[facility]25 Telephone encounter Note* Telephone Encounter - Seda Reyes LPN - 11/19/2024 11:13 AM EDT ----- Message from Wenceslao Short APRN.CNP sent at 11/19/2024 9:03 AM EDT ----- Patient is positive for influenza A. She was prescribed Tamiflu by her academic success coordinator. She could use [id number] medications that are appropriate during for her other symptoms. Please inform her of the positive test she is negative for COVID, influenza B and RSV. [facility]03-[facility] Telephone encounter Note* Telephone Encounter - Wenceslao Shotr Jr., APRN.CNP - 11/19/2024 9:03 AM EDT Patient is positive for influenza A. She was prescribed Tamiflu by her academic success coordinator. She could use buiv-uka-gectbmi medications that are appropriate during for her other symptoms. Please inform her of the positive test she is negative for COVID, influenza B and RSV. [facility]03-[facility] Miscellaneous Notes* Telephone Encounter - Wenceslao Short Jr., APRN.CNP - 11/19/2024 9:03 AM EDT Patient is positive for influenza A. She was prescribed Tamiflu by her academic success coordinator. She could use gzgt-oed-batyxlg medications that are appropriate during for her other symptoms. Please inform her of the positive test she is negative for COVID, influenza B and RSV. [facility] Discharge summary [facility] Medical Records Department [address] [place] [address] Emergency Department Summary 11/18/24 MR#: [id number] Acct: [id number] Name: EDEL GALLOWAY Rep #:[id number] : 1995 29 From: Alfonso Sylvester DO PCP: Dr. Allyssa Velarde DO Status: REG ER Location: ED HPI History of Present Illness Chief Complaint: General Illness Narrative Narrative: Patient is a 29-year-old female G2, P1 currently 17 weeks who presents to the emergency department chief complaint of nausea vomiting not able to tolerate oral intake for the last 24 hours. Patient states that she was prescribed Zofran by her MEDICAL TRANSCRIPTION RADIOLOGY and states that she has been taking it as much as possible however she still has been vomiting. States that her whole house issick currentlywith similar symptoms. She states that her symptoms started on Thursday. She states that she went to urgent care and was given Unasyn today. Despite these medications she was not getting better therefore she came here forthe valuation management. Patient states that she feels that she is dehydrated. Patient denies any urinary symptoms denies abdominal pain vaginal spotting or bleeding. States that her first was uncomplicated. [facility] Medical History Conjunctivitis, right eye Hx of abnormal cervical Pap smear Complete Spotting Heartburn Non-smoker Cholelithiases Frequent headaches Home Medications ?Medication ?Instructions ?Recorded ?Last Taken ?Type multivitamin no.47-iron fum 27 cap PO 09/27/24 Unknown History mg-folate no.1 1 mg-dha 300 mg capsule (PNV-DHA) oseltamivir 75 mg capsule (Tamiflu) 75 mg PO BID 5 day s #10 caps 11/17/24 Unknown Rx cephalexin 500 mg capsule 500 mg PO Q12H 5 days #10 ca ps 11/18/24 Unknown Rx metoclopramide HCl 10 mg tablet 10 mg PO Q6H PRN nause a and 11/18/24 Unknown Rx vomiting #14 tabs ondansetron 4 mg disintegrating 4 mg PO Q6H PRN nausea and 11/18/24 Unknown Rx tablet vomiting #30 tabs Allergy/AdvReac Type Severity Reaction Status Date / Time No Known Allergies Allergy Verified 11/18/24 18:02 Family History Mother Diabetes Hypertension Grandmother Heart disease Surgical History History of laparoscopic cholecystectomy (~03/2022) Hx of wisdom tooth extraction Social History adopted: No household members: spouse and children number of children: 1 current occupational status: employed 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: Yes (bloodborne pathogens) pets and animals: Yes pets and animals: dog(s) history of recent travel: No ([place], [place]) sexually active: Yes Smoking Status: Never smoker alcohol intake: current alcohol intake frequency: a few times a month Alcohol type: beer and wine details: not while substance use type: does not use well-balanced diet: daily or most days caffeine: No eating out: 1-3 times/week during the past year weight has: increased > 10 lbs what type of physical activity do you participate in: walking frequency: 1-2 times per week duration: 15-30 minutes/day maynor/episcopal: None seatbelt use: always do you feel safe at home: Yes additional social history: - Dave ROS ROS ED ROS Narrative Constitutional: Complains of chills denies headache, lightness, dizziness Cardiovascular: Denies chest pain Respiratory: Denies shortness of breath Abdomen: Complains of nausea vomiting as noted above denies abdominal pain : Denies vaginal discharge, spotting, hematuria, increased frequency of urinating or painful urination Neurological: Denies numbness, weakness, tingling Musculoskeletal: Denies back pain Skin: Denies rashes or lesions EXAM Physical Exam Narrative Exam Narrative: General: Patient lying in bed rest comfortably did not appear to be in acute distress Head: Atraumatic, normocephalic Eyes: PERRL bilaterally, EOMI bilaterally, no conjunctival injection noted Neck: Soft, supple, trachea midline Cardiovascular: Patient tachycardic with a regular rhythm no murmurs gallops rubs noted Respiratory: Clear to auscultation bilaterally Abdomen: Soft, gravid abdomen no tenderness palpation Extremities: +5/5 strength noted in the bilateral upper and lower extremities, radial pulses +2/4 in the bilateral extremities, no pedal edema on exam Neurological: Patient following commands knew that she was at [facility] year is 2024 Skin: Warm, dry, intact no rashes lesions noted Const Vital Signs: 11/18/24 18:02 11/18/24 20:01 11/18/24 20:33 Temperature 98.0 F Temperature Source Oral Pulse Rate 120 H 112 H Respiratory Rate 16 18 Respiratory Effort Normal Respiratory Pattern Normal Blood Pressure 118/80 Blood Pressure Mean 92 Pulse Ox 100 100 Oxygen Delivery Method Room Air Room Air 11/18/24 22:00 Temperature Temperature Source Pulse Rate 104 H Respiratory Rate 20 H Respiratory Effort Respiratory Pattern Blood Pressure 107/66 Blood Pressure Mean 79 Pulse Ox 98 Oxygen Delivery Method Room Air MDM MDM MDM Narrative Medical decision making narrative: patient is a 29-year-old female who presented to the emergency department the chief complaint of nausea vomiting not able to tolerate anything orally for the last 24 hours. On the differential diagnose includes but not limited to UTI, asymptomatic bacteria, COVID, flu. Once workup is obtained reviewed she will bereevaluated. Patient be given IV fluids and Reglan. Patient test positive for influenza A here in the emergency department.Patient'surinalysis reviewedand showed 150 ketones 500 leukocyte esterase 25-50 white cells with 1+ bacteria gave her a gram Rocephin we will place her on Keflex urine was sent for culture. She was advised to follow-up on urineculture with her primary care physician and take antibiotics as prescribed. Patient is already on Tamiflu. On reevaluation patient she is feeling much improved she would like to go home at this point time. Patient tolerated oral intake here without any vomiting. Patient will also be given prescription forReglan. She is advised to return with worsening symptoms or any other concerns. She is agreeable this plan as well as her significant other at bedside all question concerns answered she is dischargedhome in stable condition. Lab Data Labs: Laboratory Results - last 24 hr 11/18/24 20:20 Urine Color Yellow Urine Clarity Sl. Cloudy Urine pH 6.0 Ur Specific Yulan 1.020 Urine Protein 15 H Urine Glucose (UA) Normal Urine Ketones 150 A* Urine Occult Blood Negative Urine Nitrite Negative Urine Bilirubin Negative Urine Urobilinogen Normal Ur Leukocyte Esterase 500 H Urine RBC 0-5 SEEN Urine WBC 25-50 SEEN Ur Squamous Epith Cells 5-10 SEEN Urine Bacteria 1+ Urine Mucus 0 SEEN Discharge Plan Triage Chief Complaint: General Illness ED Provider: Alfonso Sylvester Dx/Rx/DC Orders Clinical Impression: Influenza A, , Nausea & vomiting Prescriptions: New metoclopramide HCl 10 mg tablet 10 mg PO Q6H PRN (Reason: nausea and vomiting) Qty: 14 0RF cephalexin 500 mg capsule 500 mg PO Q12H 5 Days Qty: 10 0RF No Action PNV-DHA 27 mg iron-1 mg -300 mg capsule PO oseltamivir [Tamiflu] 75 mg capsule 75 mg PO BID 5 Days Qty: 10 0RF ondansetron 4 mg tablet,disintegrating 4 mg PO Q6H PRN (Reason: nausea and vomiting) Qty: 30 0RF Primary Care Provider: Allyssa Velarde Referrals: Allyssa Velarde DO [Primary Care Provider] - Activity Restrictions/Additional Instructions: I sent 2 prescriptions to your pharmacy take the antibiotic as prescribed. Follow-up and urine culture with your family physician or your MEDICAL TRANSCRIPTION RADIOLOGY. Do not take Zofran and Reglan together as these are both antiemetics. Ensure adequate hydration. Continue Tamiflu. Return with worsening symptoms or concerns. He tested positive for influenza A. Print Language: Nigerien Disposition Disposition: Home, Self Care What to do if you have Problems For any increased pain, shortness of breath, bleeding, nausea or vomiting, chestpain, or any unexpected problems, contact your Primary Care Provider. Call [facility] ([phone]) or report tothe closest Emergency Room. Call 911 if necessary. 11/18/24 2349 Cosigner Signature (if applicable): CC: Dr. Allyssa Velarde DO ~ Signed [facility]03-14-2025 Discharge summary Author Alfonso Sylvester [facility] Note Date/Time November 18, 2024 11: 41pm [facility] Medical Records Department [address] [place] [address] Emergency Department Summary 11/18/24 MR#: [id number] Acct: [id number] Name: EDEL GALLOWAY Rep #:[id number] : 1995 29 From: Alfonso Sylvester DO PCP: Dr. Allyssa Velarde DO Status: REG ER Location: ED HPI History of Present Illness Chief Complaint: General Illness Narrative Narrative: Patient is a 29-year-old female G2, P1 currently 17 weeks who presents to the emergency department chief complaint of nausea vomiting not able to tolerate oral intake for the last 24 hours. Patient states that she was prescribed Zofran by her MEDICAL TRANSCRIPTION RADIOLOGY and states that she has been taking it as much as possible however she still has been vomiting. States that her whole house issick currently with similar symptoms. She states that her symptoms started on Thursday. She states that she went to urgent care and was given Unasyn today. Despite these medications she was not getting better therefore she came here forthe valuation management. Patient states that she feels that she is dehydrated. Patient denies any urinary symptoms denies abdominal pain vaginal spotting or bleeding. States that her first was uncomplicated. PFSH PFSH Medical History Conjunctivitis, right eye Hx of abnormal cervical Pap smear Complete Spotting Heartburn Non-smoker Cholelithiases Frequent headaches Home Medications ?Medication ?Instructions ?Recorded ?Last Taken ?Type multivitamin no.47-iron fum 27 cap PO 09/27/24 Unknown History mg-folate no.1 1 mg-dha 300 mg capsule (PNV-DHA) oseltamivir 75 mg capsule (Tamiflu) 75 mg PO BID 5 day s #10 caps 11/17/24 Unknown Rx cephalexin 500 mg capsule 500 mg PO Q12H 5 days #10 ca ps 11/18/24 Unknown Rx metoclopramide HCl 10 mg tablet 10 mg PO Q6H PRN nause a and 11/18/24 Unknown Rx vomiting #14 tabs ondansetron 4 mg disintegrating 4 mg PO Q6H PRN nausea and 11/18/24 Unknown Rx tablet vomiting #30 tabs Allergy/AdvReac Type Severity Reaction Status Date / Time No Known Allergies Allergy Verified 11/18/24 18:02 Family History Mother Diabetes Hypertension Grandmother Heart disease Surgical History History of laparoscopic cholecystectomy (~03/2022) Hx of wisdom tooth extraction Social History adopted: No household members: spouse and children number of children: 1 current occupational status: employed 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: Yes (bloodborne pathogens) pets and animals: Yes pets and animals: dog(s) history of recent travel: No ([place], [place]) sexually active: Yes Smoking Status: Never smoker alcohol intake: current alcohol intake frequency: a few times a month Alcohol type: beer and wine details: not while substance use type: does not use well-balanced diet: daily or most days caffeine: No eating out: 1-3 times/week during the past year weight has: increased > 10 lbs what type of physical activity do you participate in: walking frequency: 1-2 times per week duration: 15-30 minutes/day maynor/episcopal: None seatbelt use: always do you feel safe at home: Yes additional social history: - Dave ROS ROS ED ROS Narrative Constitutional: Complains of chills denies headache, lightness, dizziness Cardiovascular: Denies chest pain Respiratory: Denies shortness of breath Abdomen: Complains of nausea vomiting as noted above denies abdominal pain : Denies vaginal discharge, spotting, hematuria, increased frequency of urinating or painful urination Neurological: Denies numbness, weakness, tingling Musculoskeletal: Denies back pain Skin: Denies rashes or lesions EXAM Physical Exam Narrative Exam Narrative: General: Patient lying in bed rest comfortably did not appear to be in acute distress Head: Atraumatic, normocephalic Eyes: PERRL bilaterally, EOMI bilaterally, no conjunctival injection noted Neck: Soft, supple, trachea midline Cardiovascular: Patient tachycardic with a regular rhythm no murmurs gallops rubs noted Respiratory: Clear to auscultation bilaterally Abdomen: Soft, gravid abdomen no tenderness palpation Extremities: +5/5 strength noted in the bilateral upper and lower extremities, radial pulses +2/4 in the bilateral extremities, no pedal edema on exam Neurological: Patient following commands knew that she was at [facility] year is 2024 Skin: Warm, dry, intact no rashes lesions noted Const Vital Signs: 11/18/24 18:02 11/18/24 20:01 11/18/24 20:33 Temperature 98.0 F Temperature Source Oral Pulse Rate 120 H 112 H Respiratory Rate 16 18 Respiratory Effort Normal Respiratory Pattern Normal Blood Pressure 118/80 Blood Pressure Mean 92 Pulse Ox 100 100 Oxygen Delivery Method Room Air Room Air 11/18/24 22:00 Temperature Temperature Source Pulse Rate 104 H Respiratory Rate 20 H Respiratory Effort Respiratory Pattern Blood Pressure 107/66 Blood Pressure Mean 79 Pulse Ox 98 Oxygen Delivery Method Room Air MDM MDM MDM Narrative Medical decision making narrative: patient is a 29-year-old female who presented to the emergency department the chief complaint of nausea vomiting not able to tolerate anything orally for the last 24 hours. On the differential diagnose includes but not limited to UTI, asymptomatic bacteria, COVID, flu. Once workup is obtained reviewed she will bereevaluated. Patient be given IV fluids and Reglan. Patient test positive for influenza A here in the emergency department.Patient'surinalysis reviewed and showed 150 ketones 500 leukocyte esterase 25-50 white cells with 1+ bacteria gave her a gram Rocephin we will place her on Keflex urine was sent for culture. She was advised to follow-up on urine culture with her primary care physician and take antibiotics as prescribed. Patient is already on Tamiflu. On reevaluation patient she is feeling much improved she would like to go home at this point time. Patient tolerated oral intake here without any vomiting. Patient will also be given prescription for Reglan. She is advised to return with worsening symptoms or any other concerns. She is agreeable this plan as well as her significant other at bedside all question concerns answered she is discharged home in stable condition. Lab Data Labs: Laboratory Results - last 24 hr 11/18/24 20:20 Urine Color Yellow Urine Clarity Sl. Cloudy Urine pH 6.0 Ur Specific Yulan 1.020 Urine Protein 15 H Urine Glucose (UA) Normal Urine Ketones 150 A* Urine Occult Blood Negative Urine Nitrite Negative Urine Bilirubin Negative Urine Urobilinogen Normal Ur Leukocyte Esterase 500 H Urine RBC 0-5 SEEN Urine WBC 25-50 SEEN Ur Squamous Epith Cells 5-10 SEEN Urine Bacteria 1+ Urine Mucus 0 SEEN Discharge Plan Triage Chief Complaint: General Illness ED Provider: Alfonso Sylvester Dx/Rx/DC Orders Clinical Impression: Influenza A, , Nausea & vomiting Prescriptions: New metoclopramide HCl 10 mg tablet 10 mg PO Q6H PRN (Reason: nausea and vomiting) Qty: 14 0RF cephalexin 500 mg capsule 500 mg PO Q12H 5 Days Qty: 10 0RF No Action PNV-DHA 27 mg iron-1 mg -300 mg capsule PO oseltamivir [Tamiflu] 75 mg capsule 75 mg PO BID 5 Days Qty: 10 0RF ondansetron 4 mg tablet,disintegrating 4 mg PO Q6H PRN (Reason: nausea and vomiting) Qty: 30 0RF Primary Care Provider: Allyssa Velarde Referrals: Allyssa Velarde DO [Primary Care Provider] - Activity Restrictions/Additional Instructions: I sent 2 prescriptions to your pharmacy take the antibiotic as prescribed. Follow-up and urine culture with your family physician or your [facility]. Do not take Zofran and Reglan together as these are both antiemetics. Ensure adequate hydration. Continue Tamiflu. Return with worsening symptoms or concerns. He tested positive for influenza A. Print Language: Nigerien Disposition Disposition: Home, Self Care What to do if you have Problems For any increased pain, shortness of breath, bleeding, nausea or vomiting, chestpain, or any unexpected problems, contact your Primary Care Provider. Call [facility] ([phone]) or report to the closest Emergency Room. Call 911 if necessary. 11/18/24 2341 <Electronically signed by Alfonso Sylvester DO> Cosigner Signature (if applicable): CC: Dr. Allyssa Velarde DO ~ Signed [facility] Work Phone: 1(208) 171-197303-14-2025 [id number] (AGENT OF COVID-19) RNA: Not detected INFLUENZA A RNA: Detected INFLUENZA B RNA: Not detected RESPIRATORY SYNCYTIAL VIRUS (RSV) RNA: Not detectedSamaritan Lebanon Community HospitalComment on above:Performed By: #### [id number] #### [facility] CLIA [id number] [address] [place] [address] [place] [id number] Instructions* Patient Instructions* Wenceslao Short Jr., APRN.CNP - 11/18/2024 8:56 AM EDT Take medications as prescribed. Follow-up with PCP or return if symptoms do not resolve visit Urgent Care. documented in this encounterAcm[facility] System03-14-2025 NoteHNO ID: [id number] Author: WENCESLAO SHORT JR, APRN.DEMETRIUS Service: ? Author Type: Nurse Practitioner Type: Progress Notes Filed: 11/18/2024 09:13 Note Text: [facility] SHAQ Galloway is a 29 year old female. Patient presents with: Cough: Cough, sinus pressure, N/V all x 2 days 29-year-old gravid female presents today with a complaint of sinus pain that is radiating to her upper teeth bilaterally teeth. Nausea and vomiting and cough by 2 days. Patient concerned about dehydration stating that she has been throwing up all night. She has been prescribed Zofran by her [facility] but only has 1 tablet left. Patient states she has been exposed to influenza A from a family member. She is currently taking Tamiflu prescribed by her [facility]. The history is provided by the patient. Review of Systems Constitutional: Negative for fever. HENT: Positive for sinus pressure and sinus pain. Respiratory: Positive for cough. Gastrointestinal: Positive for nausea and vomiting. Neurological: Negative for headaches. Objective BP 106/71 Pulse 110 Temp 36.3 ?C (97.4 ?F) Resp 18 Wt 70.9 kg (156 lb 6.4 oz) SpO2 99% Physical Exam Vitals (Patient is tachycardic) and nursing note reviewed. Constitutional: Appearance: She is not ill-appearing or diaphoretic. HENT: Head: Normocephalic and atraumatic. Right Ear: Tympanic membrane normal. Left Ear: Tympanic membrane normal. Nose: Congestion and rhinorrhea present. Comments: There is to palpation of the bilateral maxillary sinuses, bilateral turbinates erythematous/edematous. Mouth/Throat: Mouth: Mucous membranes are moist. Pharynx: Oropharynx is clear. No posterior oropharyngeal erythema. Eyes: Conjunctiva/sclera: Conjunctivae normal. Cardiovascular: Rate and Rhythm: Normal rate and regular rhythm. Heart sounds: Normal heart sounds. Pulmonary: Effort: Pulmonary effort is normal. Breath sounds: Normal breath sounds. No stridor. No wheezing or rales. Abdominal: General: Bowel sounds are normal. Palpations: Abdomen is soft. Skin: General: Skin is warm and dry. Neurological: Mental Status: She is alert and oriented to person, place, and time. Psychiatric: Comments: Patient emotional at today's visit. COVID/influenza/RSV test performed. Awaiting test results. Assessment AND Plan Congestion of nasal sinus Based on examination I am concerned for COVID or influenza. I did reassure patient she is doing everything currently correct. Due to her sinus pain and exam findings I prescribed her Augmentin in case she is developing a sinus infection. I prescribed her dicyclomine pyridoxine for nausea. She stated she only had 1 Zofran left and even though she has contacted her [facility] for refill no prescription has been sent in. I gave her a work slip for today. Patient was informed if she is unable to keep fluids down I recommend she goes to the emergency room as I am unable to give her fluids at this urgent care. Orders: doxylamine-pyridoxine, vit B6, 10-10 mg TbEC; Take 2 tabs at night. If symptoms persist after 2 days add one tab in the morning. If symptoms still persist after 4 days add a tab mid-day amoxicillin-clavulanate potassium (AUGMENTIN) 875-125 mg per tablet; Take 1 tablet by mouth two times a day for 5 days. Nausea and vomiting, unspecified vomiting type Orders: COVID AND INFLUENZA A/B AND RSV PCR, ROUTINE doxylamine-pyridoxine, vit B6, 10-10 mg TbEC; Take 2 tabs at night. If symptoms persist after 2 days add one tab in the morning. If symptoms still persist after 4 days add a tab mid-day [facility]03-14-2025 History of Present illness Narrative* Wenceslao Short Jr., UNDER GROUND MINER.HEALTH PHYSICIST - 11/18/2024 8:42 AM EDT [facility] SHAQ Galloway is a 29 year old female. Patient presents with: Cough: Cough, sinus pressure, N/V all x 2 days 29-year-old gravid female presents today with a complaint of sinus pain that is radiating to her upper teeth bilaterally teeth. Nausea and vomiting and cough by 2 days. Patient concerned about dehydration stating that she has been throwing up all night. She has been prescribed Zofran by her [facility] but only has 1 tablet left. Patient states she has been exposed to influenza A from a family member. She is currently taking Tamiflu prescribed by her [facility]. The history is provided by the patient. Review of Systems Constitutional: Negative for fever. HENT: Positive for sinus pressure and sinus pain. Respiratory: Positive for cough. Gastrointestinal: Positive for nausea and vomiting. Neurological: Negative for headaches. Objective BP 106/71 Pulse 110 Temp 36.3 C (97.4 F) Resp 18 Wt 70.9 kg (156 lb 6.4 oz) SpO2 99% Physical Exam Vitals (Patient is tachycardic) and nursing note reviewed. Constitutional: Appearance: She is not ill-appearing or diaphoretic. HENT: Head: Normocephalic and atraumatic. Right Ear: Tympanic membrane normal. Left Ear: Tympanic membrane normal. Nose: Congestion and rhinorrhea present. Comments: There is to palpation of the bilateral maxillary sinuses, bilateral turbinates erythematous/edematous. Mouth/Throat: Mouth: Mucous membranes are moist. Pharynx: Oropharynx is clear. No posterior oropharyngeal erythema. Eyes: Conjunctiva/sclera: Conjunctivae normal. Cardiovascular: Rate and Rhythm: Normal rate and regular rhythm. Heart sounds: Normal heart sounds. Pulmonary: Effort: Pulmonary effort is normal. Breath sounds: Normal breath sounds. No stridor. No wheezing or rales. Abdominal: General: Bowel sounds are normal. Palpations: Abdomen is soft. Skin: General: Skin is warm and dry. Neurological: Mental Status: She is alert and oriented to person, place, and time. Psychiatric: Comments: Patient emotional at today's visit. COVID/influenza/RSV test performed. Awaiting test results. Assessment & Plan Congestion of nasal sinus Based on examination I am concerned for COVID or influenza. I did reassure patient she is doing everything currently correct. Due to her sinus pain and exam findings I prescribed her Augmentin in case she is developing a sinus infection. I prescribed her dicyclomine pyridoxine for nausea. She stated she only had 1 Zofran left and even though she has contacted her [facility] for refill no prescriptionhas been sent in. I gave her a work slip for today. Patient was informed if she is unable to keep fluids down I recommend she goes to the emergency room as I am unable to give her fluids at this urgent care. Orders: doxylamine-pyridoxine, vit B6, 10-10 mg TbEC; Take 2 tabs at night. If symptoms persist after 2 days add one tab in the morning. If symptoms still persist after 4 days add a tab mid-day amoxicillin-clavulanate potassium (AUGMENTIN) 875-125 mg per tablet; Take 1 tablet by mouth two times a day for 5 days. Nausea and vomiting, unspecified vomiting type Orders: COVID & INFLUENZA A/B & RSV PCR, ROUTINE doxylamine-pyridoxine, vit B6, 10-10 mg TbEC; Take 2 tabs at night. If symptoms persist after 2 days add one tab in the morning. If symptoms still persist after 4 days add a tab mid-day MDM Procedures documented in this encounterAcmc [facility] System02-26-2025 Evaluation note* Diagnosis Onset Date Resolution Status Admit Date History of miscarriage, currently acute October 2:09pm Neck pain acute November 02, 2024 2:09pm acute November 02, 2024 2:09pm Segmental and somatic dysfunction of cervical region acute [facility] 2024 2:09pm Segmental and somatic dysfunction of lumbar region acute Oct [facility] 2024 2:09pm Segmental and somatic dysfunction of sacral region acute Oct [facility] 2024 2:09pm Segmental and somatic dysfunction of thoracic region acute [facility] 2024 2:09pm Supervision of high-risk acute November 02, 2 025 2:09pm Abnormal ultrasound acute December 02, 2024 9:53am History of miscarriage, currently acute December 02, 2 025 9:53am acute December 02 9:53am Supervision of high-risk acute December 02, 2024 9:53am History of miscarriage, currently acute December 28, 2 025 3:23pm acute December 28 3:23pm Supervision of high-risk acute December 28, 2024 3:23pm UTI in acute December 282024 3:23pm Abnormal ultrasound acute January 23, 2025 9:58am History of miscarriage, currently acute January 23 9:58am Neck pain acute January 23, 2025 9:58am acute January 23, 2025 9:58am Segmental and somatic dysfunction of cervical region acute [facility] 2024 9:58am Segmental and somatic dysfunction of lumbar region acute January 23, 2025 9:58am Segmental and somatic dysfunction of sacral region acute January 23, 2025 9:58am Segmental and somatic dysfunction of thoracic region acute [facility] 2024 9:58am Supervision of high-risk acute January 23, 2025 9 :58am UTI in acute January 9:58am Abnormal ultrasound acute February 06, 2025 11:09am Anemia affecting acute February 06, 2025 11:09am History of miscarriage, currently acute February 06 11:09am Neck pain acute February 06, 2025 11:09am acute February 06, 2025 11:09am Segmental and somatic dysfunction of cervical region acute [facility] 2024 11:09am Segmental and somatic dysfunction of lumbar region acute [facility] 2024 11:09am Segmental and somatic dysfunction of sacral region acute [facility] 2024 11:09am Segmental and somatic dysfunction of thoracic region acute J une 2024 11:09am Supervision of high-risk acute February 06, 2025 1 1:09am UTI in acute February 11:09am [facility] Work Phone: 1(494) 686-745502-26-2025 Evaluation note* Diagnosis Onset Date Resolution Status Admit Date History of miscarriage, currently acute October 2:09pm Neck pain acute November 02, 2024 2:09pm acute November 02, 2024 2:09pm Segmental and somatic dysfunction of cervical region acute F [facility] 2024 2:09pm Segmental and somatic dysfunction of lumbar region acute Feb ruary 2024 2:09pm Segmental and somatic dysfunction of sacral region acute b ruary 2024 2:09pm Segmental and somatic dysfunction of thoracic region acute F ebruary 2024 2:09pm Supervision of high-risk acute November 02, 025 2:09pm Abnormal ultrasound acute December 02, 2024 9:53am History of miscarriage, currently acute December 02, 025 9:53am acute December 02 9:53am Supervision of high-risk acute December 02, 2024 9:53am History of miscarriage, currently acute December 28, 3:23pm acute December 28 3:23pm Supervision of high-risk acute December 28, 2024 3:23pm UTI in acute December 282024 3:23pm Abnormal ultrasound acute January 23, 2025 9:58am History of miscarriage, currently acute January 23 9:58am Neck pain acute January 23, 2025 9:58am acute January 23, 2025 9:58am Segmental and somatic dysfunction of cervical region acute [facility] 2024 9:58am Segmental and somatic dysfunction of lumbar region acute January 23, 2025 9:58am Segmental and somatic dysfunction of sacral region acute January 23, 2025 9:58am Segmental and somatic dysfunction of thoracic region acute [facility] 2024 9:58am Supervision of high-risk acute January 23, 2025 9 :58am UTI in acute January 9:58am Abnormal ultrasound acute February 06, 2025 11:09am Anemia affecting acute February 06, 2025 11:09am History of miscarriage, currently acute February 06 11:09am Neck pain acute February 06, 2025 11:09am acute February 06, 2025 11:09am Segmental and somatic dysfunction of cervical region acute J une 2024 11:09am Segmental and somatic dysfunction of lumbar region acute [facility] 2024 11:09am Segmental and somatic dysfunction of sacral region acute [facility] 2024 11:09am Segmental and somatic dysfunction of thoracic region acute J une 2024 11:09am Supervision of high-risk acute February 06, 2025 1 1:09am UTI in acute February 11:09am Abnormal ultrasound acute February 24, 2025 11:05am Anemia affecting acute February 24, 2025 11:05am History of miscarriage, currently acute February 24 11:05am Neck pain acute February 24 11:05am acute February 24 11:05am Segmental and somatic dysfunction of cervical region acute J une 2024 11:05am Segmental and somatic dysfunction of lumbar region acute [facility] 2024 11:05am Segmental and somatic dysfunction of sacral region acute [facility] 2024 11:05am Segmental and somatic dysfunction of thoracic region acute J une 2024 11:05am Supervision of high-risk acute February 24, 2025 11:05am UTI in acute February 11:05am [facility] Work Phone: 1(937) 286-418501-29-2025 Evaluation note* Diagnosis Onset Date Resolution Status Admit Date History of miscarriage, currently acute October 05, 2024 12:33pm acute October 05, 2024 12:33pm Supervision of high-risk acute October 05 12:33pm History of miscarriage, currently acute October 2:09pm Neck pain acute November 02, 2024 2:09pm acute November 02, 2024 2:09pm Segmental and somatic dysfunction of cervical region acute F ebruary 2024 2:09pm Segmental and somatic dysfunction of lumbar region acute Feb ruary 2024 2:09pm Segmental and somatic dysfunction of sacral region acute Feb ruary 2024 2:09pm Segmental and somatic dysfunction of thoracic region acute F ebruary 2024 2:09pm Supervision of high-risk acute November 02, 2:09pm [facility] Work Phone: 1(248) 495-669401-29-2025 Evaluation note* Diagnosis Onset Date Resolution Status Admit Date History of miscarriage, currently acute October 05, 2024 12:33pm acute October 05, 2024 12:33pm Supervision of high-risk acute October 05 12:33pm History of miscarriage, currently acute October 2:09pm Neck pain acute November 02, 2024 2:09pm acute November 02, 2024 2:09pm Segmental and somatic dysfunction of cervical region acute F ebruary 2024 2:09pm Segmental and somatic dysfunction of lumbar region acute Feb ruary 2024 2:09pm Segmental and somatic dysfunction of sacral region acute Feb ruary 2024 2:09pm Segmental and somatic dysfunction of thoracic region acute F ebruary 2024 2:09pm Supervision of high-risk acute November 02 025 2:09pm Abnormal ultrasound acute December 02, 2024 9:53am History of miscarriage, currently acute December 02, 025 9:53am acute December 02 9:53am Supervision of high-risk acute December 02, 2024 9:53am History of miscarriage, currently acute December 28, 025 3:23pm acute December 28 3:23pm Supervision of high-risk acute December 28, 2024 3:23pm UTI in acute December 282024 3:23pm Abnormal ultrasound acute January 23, 2025 9:58am History of miscarriage, currently acute January 23 9:58am Neck pain acute January 23, 2025 9:58am acute January 23, 2025 9:58am Segmental and somatic dysfunction of cervical region acute M ay 2024 9:58am Segmental and somatic dysfunction of lumbar region acute January 23, 2025 9:58am Segmental and somatic dysfunction of sacral region acute January 23, 2025 9:58am Segmental and somatic dysfunction of thoracic region acute ay 2024 9:58am Supervision of high-risk acute January 23, 2025 9 :58am UTI in acute January 9:58am [facility] Work Phone: 1(437) 670-861701-20-2024 Progress note Author Crissy Rodas [facility] September 26, 2023 7:18am Note Date/Time September 25, 2023 8 :34am [facility] Medical Records Department [address] [place] [address] Progress Note - OBGYN 09/25/23 0834 MR#: [id number] Acct: [id number] Name: EDEL GALLOWAY Rep #:[id number] : 1995 28 From: Crissy dennison MD PCP: Dr. Allyssa Velarde, DO Status: ADM IN Location: [id number] Subjective Subjective Patient doing well without complaints. Tolerating PO. Ambulating and voiding without difficulty. infant feeding well. Denies chest pain, shortness of breath,calf pain/swelling, fevers, chills, lightheadedness. Objective Data Objective Data Vital Signs: Vital Signs Temp Pulse Resp BP Pulse Ox O2 Del Method 98.3 F 83 14 127/61 H 100 Room Air 09/25/23 07:50 09/25/23 07:52 09/25/23 07:50 09/25/23 07:52 09/25/23 07:50 09/25/23 07:50 Oxygen Delivery Method Room Air Weight: 183 lb 6.4 oz Body Mass Index (BMI) 31.4 Intake & Output: Intake and Output for Last 24 Hours 09/23/23 09/24/23 09/25/23 23:59 23:59 23:59 Intake Total 1843.83 / 1843.83 740 / 740 Output Total 231 / 231 1300 / 1300 Balance 1612.83 / 1612.83 -560 / -560 Lab / Micro Data 09/24/23 12:00 Labs: Laboratory Results - last 24 hr 09/24/23 12:00: WBC 15.6 H, RBC 3.96 L, Hgb 11.4 L, Hct 34.7 L, MCV 87.6, MCH 28.8, MCHC 32.9, RDW Std Deviation 40.6, RDW Coeff of Pedro Luis 12.6, Plt Count 168, MPV 13.2 H, Immature Gran % (Auto) 0.600, Neut % (Auto) 81.2 H, Lymph % (Auto) 10.3 L, [place] % (Auto) 7.4, Eos % (Auto) 0.2, Baso % (Auto) 0.3, Absolute Neuts (auto) 12.7 H, Absolute Lymphs (auto) 1.60, Nucleated RBC % 0, Differential Comment SCANNED, Syphilis Total Ab Non-reactive, Blood Type O POSITIVE, AntibodyScreen NEGATIVE ROS Constitutional Constitutional: Reports systems reviewed and no addt'l complaints, except as documented Cardiovascular Cardiovascular: Reports systems reviewed and no addt'l complaints, except as documented Respiratory/Chest Respiratory/Chest: Reports systems reviewed and no addt'l complaints, except as documented Gastrointestinal Gastrointestinal: Reports systems reviewed and no addt'l complaints, except as documented Physical Exam Const alert, oriented x3 and no apparent distress HEENT Head and Scalp: atraumatic Resp normal respiratory effort GI soft to palpation and non-tender Bimanual Exam - Vag & Uterus: uterus non-tender Uterus Palpation: uterus fundus firm (below Umbilicus) Assessment & Plan (1) Vaginal delivery: COMMENT: SM IOL decels post fall 40 girl [place] PLAN: Plan s/p 1. routine post delivery care 2. breast feeding- support given 3. rh positive 4. 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 Next of kin: [place] law dictates a PRIORITY LIST for identifying legal decision-maker/legal next of kin in the following order (LNOK): 1st: The patient?s legal guardian, if any 2nd: The patient's spouse (if status is questionable, consult Risk Management) 3rd: The patient?s adult child(ross) (majority, if multiple children) 4th: The patient?s parents 5th: The patient?s adult siblings (majority, if multiple children siblings) 09/26/23717 <Electronically signed by Crissy Rodas MD> Cosigner Signature (if applicable): CC: ~ Signed [facility] Work Phone: 1(131) 260-866001-20-2024 Progress note Author Crissy Rodas [facility] September 26, 2023 7:18am Note Date/Time September 26, 2023 7 :18am [facility] Medical Records Department [address] [place] [address] Progress Note - OBGYN 09/26/2317 MR#: [id number] Acct: [id number] Name: EDEL GALLOWAY Rep #:[id number] : 1995 28 From: Crissy dennison MD PCP: Dr. Allyssa Velarde, DO Status: ADM IN Location: OR193-4 Subjective Subjective Patient doing well without complaints. Tolerating PO. Ambulating and voiding without difficulty. feeding well. Denies chest pain, shortness of breath,calf pain/swelling, fevers, chills, lightheadedness. Objective Data Objective Data Vital Signs: Vital Signs Temp Pulse Resp BP Pulse Ox O2 Del Method 97.5 F L 81 16 104/62 98 Room Air 09/26/23 02:25 09/26/23 02:25 09/26/23 02:25 09/26/23 02:25 09/26/23 02:25 09/26/23 02:25 Oxygen Delivery Method Room Air Weight: 183 lb 6.4 oz Body Mass Index (BMI) 31.4 Intake & Output: Intake and Output for Last 24 Hours 09/24/23 09/25/23 09/26/23 23:59 23:59 23:59 Intake Total 1843.83 / 1843.83 740 / 740 Output Total 231 / 231 1300 / 1300 Balance 1612.83 / 1612.83 -560 / -560 Lab / Micro Data 09/24/23 12:00 ROS Constitutional Constitutional: Reports systems reviewed and no addt'l complaints, except as documented Cardiovascular Cardiovascular: Reports systems reviewed and no addt'l complaints, except as documented Respiratory/Chest Respiratory/Chest: Reports systems reviewed and no addt'l complaints, except as documented Gastrointestinal Gastrointestinal: Reports systems reviewed and no addt'l complaints, except as documented Physical Exam Const alert, oriented x3 and no apparent distress HEENT Head and Scalp: atraumatic Resp normal respiratory effort GI soft to palpation and non-tender Bimanual Exam - Vag & Uterus: uterus non-tender Uterus Palpation: uterus fundus firm (below Umbilicus) Assessment & Plan (1) Vaginal delivery: COMMENT: SM IOL decels post fall 40 girl [place] PLAN: Plan s/p 1. routine post delivery care 2. breast feeding- support given 3. rh positive 4. rubella immune 09/26/23 0718 <Electronically signed by Crissy Rodas MD> Cosigner Signature (if applicable): CC: ~ Signed [facility] Work Phone: 1(232) 582-656901-19-2024 Discharge summary Author Crissy Rodas [facility] September 24, 2023 11:54pm Note Date/Time September 24, 2023 1 0:11pm [facility] Medical Records Department [address] [place] [address] [place] [address] Instructions for Home/Discharge Instructions 09/24/232210 MR#: [id number] Acct: [id number] Name: EDEL GALLOWAY Rep #:[id number] : 1995 28 From: Crissy dennison MD PCP: Dr. Allyssa Velarde DO Status: ADM IN Discharge Instructions Diet Discharge Diet: No restrictions Activity Discharge Activity: Return to Normal Activity, May Not Drive (while taking narcotic pain medications.) and May Shower May resume sexual activity in: 4-6 weeks Dressing / Incision Call your doctor if your incision/area has: Continuous Slow Oozing, Sudden Increased Bleeding, Increased Pain/ Swelling, Increased Redness and Foul Smelling Discharge Follow Up Care Please Follow Up With: Crissy Rodas MD When: Call [phone] to make an appointment with your doctor in 6 weeks. If you had elevated blood pressure or 4th degree laceration, you will need to be seen in 2 weeks. Test Results: Test results from this visit will be discussed in further detail at your follow- up appointment, if applicable. Discharge Plan Admission Admit Date/Time: 09/24/23 11:30 Attending Provider: Crissy Rodas Primary Care Provider: Allyssa Velarde Discharge Orders/Prescriptions Prescriptions: No Action DHA 200 mg capsule 1 mg PO Referrals / Follow Up: Allyssa Velarde DO [Primary Care Provider] - Disposition Disposition (needs filled in before D/C Order can be placed): Home, Self Care 09/24/23 6240<Electronically signed by Crissy Rodas MD>Crissy Rodas MD CC: Dr. Allyssa Velarde DO ~ Signed [facility] Work Phone: 1(142) 110-702501-18-2024 Procedure [facility] 09-24-2023 History and physical note Author Crissy Rodas [facility] September 24, 2023 2:09pm Note Date/Time September 24, 2023 2 :09pm [facility] [place] [address] H&P Exam - MEDICAL TRANSCRIPTION RADIOLOGY 09/24/23 1407 MR#: [id number] Acct: [id number] Name: EDEL GALLOWAY Rep #:[id number] : 1995 28 From: Crissy dennison MD PCP: Dr. Allyssa Velarde, DO Status: ADM IN Location: KD950-3 HPI - General General Date of Admission: 09/24/23 HPI Narrative EDEL GALLOWAY, is a 28 F who presents s/p fall and had 2 quesitonable decels on NST. cat II tracing plan IOL now 3 cm. no vb lof admits good fm, fell onto hip in driveway. Maternal Data Information JOE Calculator Estimated Delivery Date Method Current WG Current Estimate 09/24/23 LMP (Certain) 40w 0d PFSH PFSH Medical History Alcohol use Cholelithiases Complete Conjunctivitis, right eye Frequent headaches Heartburn Hx of abnormal cervical Pap smear Non-smoker Spotting Home Medications docosahexaenoic acid 200 mg capsule ( DHA) 1 mg PO 11/27/22 [History Last Taken 09/23/23 09:00 1 mg] Allergy/AdvReac Type Severity Reaction Status Date / Time No Known Allergies Allergy Verified 09/24/23 10:16 Family History Mother Diabetes Hypertension Grandmother Heart disease Surgical History History of laparoscopic cholecystectomy (~03/2022) Hx of wisdom tooth extraction Social History adopted: No household members: spouse current occupational status: employed 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: Yes (bloodborne pathogens) pets and animals: Yes pets and animals: dog(s) history of recent travel: Yes ([place], [place]) out of state: Yes out of country: No sexually active: Yes Smoking Status: Never smoker alcohol intake: current alcohol intake frequency: a few times a month Alcohol type: beer and wine details: not while substance use type: does not use well-balanced diet: daily or most days caffeine: Yes Type: coffee Number of servings: 1 and other Number of servings: 1 eating out: 1-3 times/week during the past year weight has: remained stable what type of physical activity do you participate in: walking frequency: 1-2 times per week duration: 15-30 minutes/day maynor/episcopal: None seatbelt use: always do you feel safe at home: Yes additional social history: - Dave History 2 Elective abortions Hx Para 0 Spontaneous abortions 1 Hx # Term Pregnancies Ectopic pregnancies Hx # Pregnancies Multiple births # of living children 0 Past Pregnancies Del. Date Name GA/Weeks Outcome Route Bth Weight Infant Gen Labor Lgth Anesthesia Del [facility] Provider FOB 11/20/22 miscarriage @5-6 wks Visit Details Expected Delivery Route/Plan Labor Preferences- CB/BF classes: enc labor support person: Dave labor intervention preferences: [] pain management options preferred: epidural cut cord/dad catch: cord : yes PP control planned: yes discussed possible routes of delivery and associated risks: [] special requests: [] Plans Covid status: + covid 32 wk Flu vaccine: given Tdap vaccine: given Rhogam: NA LARC form signed: completed. movement and labor precautions reviewed.n Problem list reviewed and updated with the most current plan of care details and appropriate orders placed. Relevant counseling for the gestational age provided. Continue routine care and follow up unless otherwise noted in visit notes/problem list details OB Flowsheet Initial Weight: Not Recorded Date -?-?-?-?-?-?-?-?-?-?-?-?- EGA Weight BP Urine Prot -?-?-?-?-?-?-?-?-?-?-?-?- Glucose FHR FuHt Pres Dilation -?-?-?-?-?-?-?-?-?-?-?-?- Effaced St Visit Note 02/19/23 -?-?-?-?-?-?-?-?-?-?-?-?- 9w 0d 157 lb 123/81 -?-?-?-?-?-?-?-?-?-?-?-?- 167 -?-?-?-?-?-?-?-?-?-?-?-?- JV- CRL consiste nt with 9 weeks 2 days and LMP. There are signs of a va nishing twin the CRL is less than 5 weeks on the twin. Declines NIPT. 03/16/23 -?-?-?-?-?-?-?-?-?-?-?-?- 12w 4d 157 lb 6 oz 119/73 Nega tive -?-?-?-?-?-?-?-?-?-?-?-?- Negative 158 -?-?-?-?-?-?-?-?-?-?-?-?- LC- no vb/crampi ng. nob labs normal. declines afp. will obtain mfm ultrasound 04/14/23 -?-?-?-?-?-?-?-?-?-?-?-?- 16w 5d 155 lb 4 oz 108/74 Nega tive -?-?-?-?-?-?-?-?-?-?-?-?- Negative 150 -?-?-?-?-?-?-?-?-?-?-?-?- MH-No VB, LOF. N ausea improved. MFM US next week 05/13/23 -?-?-?-?-?-?-?-?-?-?-?-?- 20w 6d 159 lb 8 oz 118/72 Nega tive -?-?-?-?-?-?-?-?-?-?-?-?- Negative 161 -?-?-?-?-?-?-?--?-?-?-?-?- MH-Nausea resolv ed. No VB. NIPT today. 06/10/23 -?-?-?-?-?-?-?-?-?-?-?-?- 24w 6d 164 lb 6 oz 108/78 Nega tive -?-?-?-?-?-?-?-?-?-?-?-?- Negative 156 24 -?-?-?-?-?-?-?-?-?-?-?-?- LC- no vb/ctx/lo f. feeling movement. low risk nipt. resolved CSP. 28 week labs ordered. UC ordered for increased urinary frequency than usual. 07/08/23 -?-?-?-?-?-?-?-?-?-?-?-?- 28w 6d 166 lb 7 oz 117/73 Nega tive -?-?-?-?-?-?-?-?-?-?-?-?- Negative 148 28 -?-?-?-?-?-?-?-?-?-?-?-?- LC- no vb/ctx/lo f. good fm. 3 hour glucose needed. 07/23/23 -?-?-?-?-?-?-?-?-?-?-?-?- 31w 0d 172 lb 114/79 Negative -?-?-?-?-?-?--?-?-?-?-?-?- Negative 130 30 -?-?-?-?-?-?-?-?-?-?-?-?- kw-no vb/lof/ctx . good fm. Passed 3 hour gct. kw-no vb/lof/ctx. good fm. P assed 3 hour gct. Flu shot today. Tdap next visit 08/10/23 -?-?-?-?-?-?-?-?-?-?-?-?- 33w 4d 173 lb 8 oz 108/66 Nega tive -?-?-?-?-?-?-?-?-?-?-?-?- Negative 146 32 -?-?-?-?-?-?-?-?-?-?-?-?- MH-No Vb, LOF. G ood FM. Had Covid last week. Taking low dose ASA daily. Feeling much improved. Larc 08/26/23 -?-?-?-?-?-?-?-?-?-?-?-?- 35w 6d 178 lb 4 oz 126/82 Nega tive -?-?-?-?-?-?-?-?-?-?-?-?- Negative 140 35 -?-?-?-?-?-?-?-?-?-?-?-?- LC- no vb/ctx/lo f. good fm. 09/02/23 -?-?-?-?-?-?-?-?-?-?-?-?- 36w 6d 179 lb 2 oz 126/82 Nega tive -?-?-?-?-?-?-?-?-?-?-?-?- Negative 131 36 -?-?-?-?-?-?-?-?-?-?-?-?- LC- no vb/ctx/lo f. good fm. gbs collected. no concerns today 09/10/23 -?-?-?-?-?-?-?-?-?-?-?-?- 38w 0d 182 lb 182 lb 118/79 Negative -?-?-?-?-?-?-?-?-?-?-?-?- Negative 130 38 Cephalic -?-?-?-?-?-?-?-?-?-?-?-?- sm- no vb lof go od fm no regular ctx declined vaginal exam 09/18/23 -?-?-?-?-?-?-?-?-?-?-?-?- 39w 1d 182 lb 4 oz 124/84 Nega tive -?-?-?-?-?-?-?-?-?-?-?-?- Negative 130 39 Cephalic 1 -?-?-?-?-?-?-?-?-?-?-?-?- 70 -2 kw-no vb/l of/cramping. good fm. labor precautions 09/23/23 -?-?-?-?-?-?-?-?-?-?-?-?- 39w 6d 181 lb 4 oz 128/86 Nega tive -?-?-?-?-?-?-?-?-?-?-?-?- Negative 140 39 Cephalic 2 -?-?-?-?-?-?-?-?-?-?-?-?- 70 -2 JV- no lof , vaginal bleeding, or dec fm. 41 week IOL. NST FHR Rate Baby A Baseline: 140 Variability:: Moderate Accelerations:: 15 x 15 Decelerations:: None NST Reactive:: Yes FHR Category:: Category II (isolated decel x 2, mild variable) Uterine Activity:: irregular ROS Constitutional Constitutional: Reports systems reviewed and no addt'l complaints, except as documented Eyes Eyes: Denies change in vision ENT HEENT: Reports systems reviewed and no addt'l complaints, except as documented; Denies headache(s) Cardiovascular Cardiovascular: Reports systems reviewed and no addt'l complaints, except as documented; Denies chest pain or dyspnea Respiratory/Chest Respiratory/Chest: Reports systems reviewed and no addt'l complaints, except as documented Gastrointestinal Gastrointestinal: Reports systems reviewed and no addt'l complaints, except as documented; Denies abdominal pain Genitourinary Genitourinary: Reports systems reviewed and no addt'l complaints, except as documented, contractions Details: present (irregular) and movement Details: present; Denies dysuria or genital lesions Musculoskeletal Musculoskeletal: Reports systems reviewed and no addt'l complaints, except as documented Neurologic Neurologic: Reports systems reviewed and no addt'l complaints, except as documented Endocrine Endocrinology: Reports systems reviewed and no addt'l complaints, except as documented Vital Signs Vital Signs Vital Signs: 09/24/23 10:20 09/24/23 10:20 09/24/23 10:22 Temperature Temperature Source Pulse Rate 89 98 Blood Pressure 119/78 BP Systolic 119 BP Diastolic 78 Pulse Ox 09/24/23 10:22 09/24/23 10:20 09/24/23 10:20 Temperature 97.9 F Temperature Source Temporal Pulse Rate Blood Pressure BP Systolic BP Diastolic Pulse Ox 96 09/24/23 11:54 09/24/23 11:54 09/24/23 11:54 Temperature Temperature Source Temporal Pulse Rate 94 Blood Pressure 142/72 H BP Systolic 142 BP Diastolic 72 Pulse Ox 09/24/23 11:54 09/24/23 12:09 09/24/23 12:09 Temperature 98.7 F Temperature Source Pulse Rate 80 Blood Pressure 126/89 H BP Systolic 126 BP Diastolic 89 Pulse Ox 09/24/23 12:53 09/24/23 12:53 09/24/23 12:53 Temperature Temperature Source Temporal Pulse Rate 81 Blood Pressure 113/69 BP Systolic 113 BP Diastolic 69 Pulse Ox 09/24/23 12:53 09/24/23 13:43 09/24/23 13:43 Temperature 98.7 F Temperature Source Pulse Rate 78 Blood Pressure 113/73 BP Systolic 113 BP Diastolic 73 Pulse Ox Weight Weight: 183 lb 6.4 oz Body Mass Index (BMI) 31.4 Physical Exam Const alert, oriented x3, no apparent distress and healthy appearing HEENT normocephalic and moist oral mucous membranes Head and Scalp: atraumatic Neck full ROM, no lymphadenopathy, supple and thyroid normal General: trachea midline Lymph Lymphatic: no lymphadenopathy noted Chest inspection of chest normal Resp normal respiratory effort Cardio regular rate GI normal to inspection, nondistended, normoactive bowel sounds, soft to palpation and non-tender Inspection: gravid external exam normal Manual OB Exam: estimated gestational size appropriate, presentation cephalic, dilated, effaced and station Extremity normal to inspection General Extremity: Negative for edema Skin no rashes or lesions noted Neuro no focal motor deficits and deep tendon reflexes 2+ bilaterally Motor Exam: strength 5/5 throughout and clonus absent Psych mental status grossly normal Labs Labs Labs: Blood Type O POSITIVE Antibody Screen NEGATIVE Hct 34.7 % (37-47) L Hgb 11.4 g/dL (12.0-15.0) L Syphilis Total Ab Non-reactive Rubella IgG Antibody Reactive (Nonreactive) Hep Bs Antigen Non-Reactive (Nonreactive) Hepatitis C Antibody Non-Reactive (Nonreactive) Chlamydia DNA (ASIF) Negative (Negative) N.gonorrhoeae DNA (ASIF) Negative (Negative) HIV 1&2 Antibody Non-Reactive (Nonreactive) Glucose 1 Hr 50 gm 161 mg/dL (70-140) H Gest Glucose Tolerance MG/DL Assessment & Plan (1) : QUALIFIERS: Weeks of gestation: 39 weeks Qualified Code(s): Z3A.39 - 39 weeks gestation of COMMENT: declines carrier. NIPT due to choroid plexus cyst: negative GBS (2) Supervision of high-risk : QUALIFIERS: Trimester: second trimester Qualified Code(s): O09.92 - Supervision of high risk , unspecified, second trimester COMMENT: PRR , JOE 09/24/23, girl, Delainey Dave (3) Choroid plexus cyst of fetus: COMMENT: NIPT:low risk, per pt resolved on anatomy US (4) Abnormal glucose tolerance affecting , antepartum: COMMENT: 3 hour glucose- normal (5) COVID-19 affecting in third trimester: COMMENT: 33 wk . low dose ASA daily (6) Encounter for induction of labor: COMMENT: s/p fall, had two decels on monitor, proceed with pit IOL PLAN: Plan Patient presents IOL, plan management for with pitocin/AROM. Pain management: plans epidural. GBS negative. Management of any complications: none I have reviewed the [facility] and made any clinically relevant updates. 09/24/23 3131 <Electronically signed by Crissy Rodas MD> Cosigner Signature (if applicable): CC: Dr. Allyssa Velarde, DO; Dr. Crissy Rodas MD~ Signed [facility] Work Phone: 1(283) 534-824306-15-2023 NotePap Smear Specimen AdequacyJune 2022 11:59pmComment.Satisfactory for evaluation. No endocervical component is identified.[facility] A#[id number] Health St. [facility] CenterCom[facility] on above:Satisfactory for evaluation. No endocervical component is identified. 02-19-2023 NotePap Smear Specimen AdequacyJune 2022 11:59pmComment. Satisfactory for evaluation. No endocervical component is identified.[facility] A#[id number] Health St. [facility] CenterCom[facility] on above:Satisfactory for evaluation. No endocervical component is identified.02-19-2023 NotePap Smear Specimen AdequacyJune 2022 11:59pmComment.Satisfactory for evaluation. No endocervical component is identified.[facility] A#[id number] Health St. Vincent [facility] CenterCom[facility] on above:Satisfactory for evaluation. No endocervical component is identified.Evaluation note* Diagnosis Onset Date Resolution Status Back pain acute Segmental and somatic dysfunction of lumbar region acute Segmental and somatic dysfunction of pelvic region acute Segmental and somatic dysfunction of thoracic region acute Back pain acute Segmental and somatic dysfunction of lumbar region acute Segmental and somatic dysfunction of pelvic region acute Segmental and somatic dysfunction of thoracic region acute [facility] Work Phone: Evaluation note* Diagnosis Onset Date Resolution Status Back pain acute Segmental and somatic dysfunction of lumbar region acute Segmental and somatic dysfunction of pelvic region acute Segmental and somatic dysfunction of thoracic region acute Back pain acute Segmental and somatic dysfunction of lumbar region acute Segmental and somatic dysfunction of pelvic region acute Segmental and somatic dysfunction of thoracic region acute Cholelithiases acute [facility] Work Phone: Evaluation note* Diagnosis Onset Date Resolution Status Back pain acute Segmental and somatic dysfunction of lumbar region acute Segmental and somatic dysfunction of pelvic region acute Segmental and somatic dysfunction of thoracic region acute Back pain acute Segmental and somatic dysfunction of cervical region acute Segmental and somatic dysfunction of lumbar region acute Segmental and somatic dysfunction of pelvic region acute Segmental and somatic dysfunction of thoracic region acute [facility] Work Phone: Evaluation note* Diagnosis Onset Date Resolution Status Hx of one miscarriage acute acute Supervision of high-risk acute Back pain acute Segmental and somatic dysfunction of cervical region acute Segmental and somatic dysfunction of lumbar region acute Segmental and somatic dysfunction of sacral region acute Segmental and somatic dysfunction of thoracic region acute [facility] Work Phone: Evaluation note* Diagnosis Onset Date Resolution Status Hx of one miscarriage acute acute Supervision of high-risk acute Back pain acute Segmental and somatic dysfunction of cervical region acute Segmental and somatic dysfunction of lumbar region acute Segmental and somatic dysfunction of sacral region acute Segmental and somatic dysfunction of thoracic region acute Back pain acute Segmental and somatic dysfunction of cervical region acute Segmental and somatic dysfunction of lumbar region acute Segmental and somatic dysfunction of sacral region acute Segmental and somatic dysfunction of thoracic region acute Back pain acute Cervicogenic headache acute Hx of one miscarriage acute acute Segmental and somatic dysfunction of cervical region acute Segmental and somatic dysfunction of lumbar region acute Segmental and somatic dysfunction of pelvic region acute Segmental and somatic dysfunction of sacral region acute Segmental and somatic dysfunction of thoracic region acute Sinusitis acute Supervision of high-risk acute URI (upper respiratory infection) acute Vanishing twin syndrome acut e [facility] Work Phone: Evaluation note* Diagnosis Onset Date Resolution Status Hx of one miscarriage acute acute Supervision of high-risk acute Segmental and somatic dysfunction of cervical region acute Segmental and somatic dysfunction of lumbar region acute Segmental and somatic dysfunction of sacral region acute Segmental and somatic dysfunction of thoracic region acute Segmental and somatic dysfunction of cervical region acute Segmental and somatic dysfunction of lumbar region acute Segmental and somatic dysfunction of sacral region acute Segmental and somatic dysfunction of thoracic region acute Cervicogenic headache acute Hx of one miscarriage acute acute Segmental and somatic dysfunction of cervical region acute Segmental and somatic dysfunction of lumbar region acute Segmental and somatic dysfunction of pelvic region acute Segmental and somatic dysfunction of sacral region acute Segmental and somatic dysfunction of thoracic region acute Supervision of high-risk acute Vanishing twin syndrome acut e Segmental and somatic dysfunction of cervical region acute Segmental and somatic dysfunction of lumbar region acute Segmental and somatic dysfunction of sacral region acute Segmental and somatic dysfunction of thoracic region acute Hx of one miscarriage acute acute Supervision of high-risk acute Vanishing twin syndrome acut e Segmental and somatic dysfunction of cervical region acute Segmental and somatic dysfunction of lumbar region acute Segmental and somatic dysfunction of sacral region acute Segmental and somatic dysfunction of thoracic region acute Choroid plexus cyst of fetus acute Hx of one miscarriage acute acute Supervision of high-risk acute Vanishing twin syndrome acut e [facility] Work Phone: Evaluation note* Diagnosis Onset Date Resolution Status Back pain acute Segmental and somatic dysfunction of cervical region acute Segmental and somatic dysfunction of lumbar region acute Segmental and somatic dysfunction of sacral region acute Segmental and somatic dysfunction of thoracic region acute Back pain acute Cervicogenic headache acute Hx of one miscarriage acute acute Segmental and somatic dysfunction of cervical region acute Segmental and somatic dysfunction of lumbar region acute Segmental and somatic dysfunction of pelvic region acute Segmental and somatic dysfunction of sacral region acute Segmental and somatic dysfunction of thoracic region acute Supervision of high-risk acute Vanishing twin syndrome acut e Back pain acute Segmental and somatic dysfunction of cervical region acute Segmental and somatic dysfunction of lumbar region acute Segmental and somatic dysfunction of sacral region acute Segmental and somatic dysfunction of thoracic region acute Hx of one miscarriage acute acute Supervision of high-risk acute Vanishing twin syndrome acut e Back pain acute Segmental and somatic dysfunction of cervical region acute Segmental and somatic dysfunction of lumbar region acute Segmental and somatic dysfunction of sacral region acute Segmental and somatic dysfunction of thoracic region acute Choroid plexus cyst of fetus acute Hx of one miscarriage acute acute Supervision of high-risk acute Vanishing twin syndrome acut e Back pain acute Segmental and somatic dysfunction of cervical region acute Segmental and somatic dysfunction of lumbar region acute Segmental and somatic dysfunction of sacral region acute Segmental and somatic dysfunction of thoracic region acute Cervicogenic headache acute Choroid plexus cyst of fetus acute Hx of one miscarriage acute acute Segmental and somatic dysfunction of cervical region acute Segmental and somatic dysfunction of lumbar region acute Segmental and somatic dysfunction of pelvic region acute Segmental and somatic dysfunction of sacral region acute Segmental and somatic dysfunction of thoracic region acute Supervision of high-risk acute Vanishing twin syndrome acut e Back pain acute Segmental and somatic dysfunction of cervical region acute Segmental and somatic dysfunction of lumbar region acute Segmental and somatic dysfunction of sacral region acute Segmental and somatic dysfunction of thoracic region acute Back pain acute Cervicogenic headache acute Choroid plexus cyst of fetus acute Hx of one miscarriage acute Need to void immediately after urinating acute acute Segmental and somatic dysfunction of cervical region acute Segmental and somatic dysfunction of lumbar region acute Segmental and somatic dysfunction of pelvic region acute Segmental and somatic dysfunction of sacral region acute Segmental and somatic dysfunction of thoracic region acute Supervision of high-risk acute Vanishing twin syndrome acut e [facility] Work Phone: Evaluation note* Diagnosis Onset Date Resolution Status Back pain acute Segmental and somatic dysfunction of cervical region acute Segmental and somatic dysfunction of lumbar region acute Segmental and somatic dysfunction of sacral region acute Segmental and somatic dysfunction of thoracic region acute Hx of one miscarriage acute acute Supervision of high-risk acute Vanishing twin syndrome acut e Back pain acute Segmental and somatic dysfunction of cervical region acute Segmental and somatic dysfunction of lumbar region acute Segmental and somatic dysfunction of sacral region acute Segmental and somatic dysfunction of thoracic region acute Choroid plexus cyst of fetus acute Hx of one miscarriage acute acute Supervision of high-risk acute Vanishing twin syndrome acut e Back pain acute Segmental and somatic dysfunction of cervical region acute Segmental and somatic dysfunction of lumbar region acute Segmental and somatic dysfunction of sacral region acute Segmental and somatic dysfunction of thoracic region acute Cervicogenic headache acute Choroid plexus cyst of fetus acute Hx of one miscarriage acute acute Segmental and somatic dysfunction of cervical region acute Segmental and somatic dysfunction of lumbar region acute Segmental and somatic dysfunction of pelvic region acute Segmental and somatic dysfunction of sacral region acute Segmental and somatic dysfunction of thoracic region acute Supervision of high-risk acute Vanishing twin syndrome acut e Back pain acute Segmental and somatic dysfunction of cervical region acute Segmental and somatic dysfunction of lumbar region acute Segmental and somatic dysfunction of sacral region acute Segmental and somatic dysfunction of thoracic region acute Back pain acute Cervicogenic headache acute Choroid plexus cyst of fetus acute Hx of one miscarriage acute Need to void immediately after urinating acute acute Segmental and somatic dysfunction of cervical region acute Segmental and somatic dysfunction of lumbar region acute Segmental and somatic dysfunction of pelvic region acute Segmental and somatic dysfunction of sacral region acute Segmental and somatic dysfunction of thoracic region acute Supervision of high-risk acute Vanishing twin syndrome acut e Back pain acute Segmental and somatic dysfunction of cervical region acute Segmental and somatic dysfunction of lumbar region acute Segmental and somatic dysfunction of sacral region acute Segmental and somatic dysfunction of thoracic region acute Conjunctivitis, right eye ac [place] Abnormal glucose tolerance a ffecting , antepartum acute Back pain acute Cervicogenic headache acute Choroid plexus cyst of fetus acute Conjunctivitis, right eye ac [place] Hx of one miscarriage acute Need to void immediately after urinating acute acute Segmental and somatic dysfunction of cervical region acute Segmental and somatic dysfunction of lumbar region acute Segmental and somatic dysfunction of pelvic region acute Segmental and somatic dysfunction of sacral region acute Segmental and somatic dysfunction of thoracic region acute Supervision of high-risk acute Vanishing twin syndrome acut e [facility] Work Phone: Evaluation note* Diagnosis Onset Date Resolution Status Back pain acute Segmental and somatic dysfunction of cervical region acute Segmental and somatic dysfunction of lumbar region acute Segmental and somatic dysfunction of sacral region acute Segmental and somatic dysfunction of thoracic region acute Choroid plexus cyst of fetus acute Hx of one miscarriage acute acute Supervision of high-risk acute Vanishing twin syndrome acut e Back pain acute Segmental and somatic dysfunction of cervical region acute Segmental and somatic dysfunction of lumbar region acute Segmental and somatic dysfunction of sacral region acute Segmental and somatic dysfunction of thoracic region acute Cervicogenic headache acute Choroid plexus cyst of fetus acute Hx of one miscarriage acute acute Segmental and somatic dysfunction of cervical region acute Segmental and somatic dysfunction of lumbar region acute Segmental and somatic dysfunction of pelvic region acute Segmental and somatic dysfunction of sacral region acute Segmental and somatic dysfunction of thoracic region acute Supervision of high-risk acute Vanishing twin syndrome acut e Back pain acute Segmental and somatic dysfunction of cervical region acute Segmental and somatic dysfunction of lumbar region acute Segmental and somatic dysfunction of sacral region acute Segmental and somatic dysfunction of thoracic region acute Back pain acute Cervicogenic headache acute Choroid plexus cyst of fetus acute Hx of one miscarriage acute acute Segmental and somatic dysfunction of cervical region acute Segmental and somatic dysfunction of lumbar region acute Segmental and somatic dysfunction of pelvic region acute Segmental and somatic dysfunction of sacral region acute Segmental and somatic dysfunction of thoracic region acute Supervision of high-risk acute Vanishing twin syndrome acut e Back pain acute Segmental and somatic dysfunction of cervical region acute Segmental and somatic dysfunction of lumbar region acute Segmental and somatic dysfunction of sacral region acute Segmental and somatic dysfunction of thoracic region acute Conjunctivitis, right eye re solved Abnormal glucose tolerance a ffecting , antepartum acute Back pain acute Cervicogenic headache acute Choroid plexus cyst of fetus acute Hx of one miscarriage acute acute Segmental and somatic dysfunction of cervical region acute Segmental and somatic dysfunction of lumbar region acute Segmental and somatic dysfunction of pelvic region acute Segmental and somatic dysfunction of sacral region acute Segmental and somatic dysfunction of thoracic region acute Supervision of high-risk acute Vanishing twin syndrome acut e Conjunctivitis, right eye re solved Choroid plexus cyst of fetus acute COVID-19 affecting in third trimester acute Hx of one miscarriage acute acute Supervision of high-risk acute Vanishing twin syndrome acut e Abnormal glucose tolerance a ffecting , antepartum acute Back pain acute Cervicogenic headache acute Choroid plexus cyst of fetus acute COVID-19 affecting in third trimester acute Hx of one miscarriage acute acute Segmental and somatic dysfunction of cervical region acute Segmental and somatic dysfunction of lumbar region acute Segmental and somatic dysfunction of pelvic region acute Segmental and somatic dysfunction of sacral region acute Segmental and somatic dysfunction of thoracic region acute Supervision of high-risk acute Vanishing twin syndrome acut e Abnormal glucose tolerance a ffecting , antepartum acute Choroid plexus cyst of fetus acute COVID-19 affecting in third trimester acute Hx of one miscarriage acute acute Supervision of high-risk acute Vanishing twin syndrome acut e [facility] Work Phone: Evaluation note* Diagnosis Onset Date Resolution Status Back pain resolved Segmental and somatic dysfunction of cervical region resolved Segmental and somatic dysfunction of lumbar region resolved Segmental and somatic dysfunction of sacral region resolved Segmental and somatic dysfunction of thoracic region resolved Cervicogenic headache resolv ed Choroid plexus cyst of fetus resolved Hx of one miscarriage resolv ed resolved Segmental and somatic dysfunction of cervical region resolved Segmental and somatic dysfunction of lumbar region resolved Segmental and somatic dysfunction of pelvic region resolved Segmental and somatic dysfunction of sacral region resolved Segmental and somatic dysfunction of thoracic region resolved Supervision of high-risk resolved Vanishing twin syndrome reso lved Back pain resolved Segmental and somatic dysfunction of cervical region resolved Segmental and somatic dysfunction of lumbar region resolved Segmental and somatic dysfunction of sacral region resolved Segmental and somatic dysfunction of thoracic region resolved Back pain resolved Cervicogenic headache resolv ed Choroid plexus cyst of fetus resolved Hx of one miscarriage resolv ed resolved Segmental and somatic dysfunction of cervical region resolved Segmental and somatic dysfunction of lumbar region resolved Segmental and somatic dysfunction of pelvic region resolved Segmental and somatic dysfunction of sacral region resolved Segmental and somatic dysfunction of thoracic region resolved Supervision of high-risk resolved Vanishing twin syndrome reso lved Back pain resolved Segmental and somatic dysfunction of cervical region resolved Segmental and somatic dysfunction of lumbar region resolved Segmental and somatic dysfunction of sacral region resolved Segmental and somatic dysfunction of thoracic region resolved Conjunctivitis, right eye re solved Abnormal glucose tolerance a ffecting , antepartum resolved Back pain resolved Cervicogenic headache resolv ed Choroid plexus cyst of fetus resolved Conjunctivitis, right eye re solved Hx of one miscarriage resolv ed resolved Segmental and somatic dysfunction of cervical region resolved Segmental and somatic dysfunction of lumbar region resolved Segmental and somatic dysfunction of pelvic region resolved Segmental and somatic dysfunction of sacral region resolved Segmental and somatic dysfunction of thoracic region resolved Supervision of high-risk resolved Vanishing twin syndrome reso lved Choroid plexus cyst of fetus resolved COVID-19 affecting in third trimester resolved Hx of one miscarriage resolv ed resolved Supervision of high-risk resolved Vanishing twin syndrome reso lved Abnormal glucose tolerance a ffecting , antepartum resolved Back pain resolved Cervicogenic headache resolv ed Choroid plexus cyst of fetus resolved COVID-19 affecting in third trimester resolved Hx of one miscarriage resolv ed resolved Segmental and somatic dysfunction of cervical region resolved Segmental and somatic dysfunction of lumbar region resolved Segmental and somatic dysfunction of pelvic region resolved Segmental and somatic dysfunction of sacral region resolved Segmental and somatic dysfunction of thoracic region resolved Supervision of high-risk resolved Vanishing twin syndrome reso lved Abnormal glucose tolerance a ffecting , antepartum resolved Choroid plexus cyst of fetus resolved COVID-19 affecting in third trimester resolved Hx of one miscarriage resolv ed resolved Supervision of high-risk resolved Vanishing twin syndrome reso lved Back pain resolved Segmental and somatic dysfunction of cervical region resolved Segmental and somatic dysfunction of lumbar region resolved Segmental and somatic dysfunction of sacral region resolved Segmental and somatic dysfunction of thoracic region resolved Abnormal glucose tolerance a ffecting , antepartum resolved Back pain resolved Cervicogenic headache resolv ed Choroid plexus cyst of fetus resolved COVID-19 affecting in third trimester resolved Hx of one miscarriage resolv ed resolved Segmental and somatic dysfunction of cervical region resolved Segmental and somatic dysfunction of lumbar region resolved Segmental and somatic dysfunction of pelvic region resolved Segmental and somatic dysfunction of sacral region resolved Segmental and somatic dysfunction of thoracic region resolved Supervision of high-risk resolved Vanishing twin syndrome reso lved Abnormal glucose tolerance a ffecting , antepartum resolved Back pain resolved Cervicogenic headache resolv ed Choroid plexus cyst of fetus resolved COVID-19 affecting in third trimester resolved Hx of one miscarriage resolv ed resolved Segmental and somatic dysfunction of cervical region resolved Segmental and somatic dysfunction of lumbar region resolved Segmental and somatic dysfunction of pelvic region resolved Segmental and somatic dysfunction of sacral region resolved Segmental and somatic dysfunction of thoracic region resolved Supervision of high-risk resolved Vanishing twin syndrome reso lved Abnormal glucose tolerance a ffecting , antepartum resolved Back pain resolved Choroid plexus cyst of fetus resolved COVID-19 affecting in third trimester resolved Hx of one miscarriage resolv ed resolved Segmental and somatic dysfunction of sacral region resolved Supervision of high-risk resolved Vanishing twin syndrome reso lved Vaginal delivery acute Abnormal glucose tolerance a ffecting , antepartum resolved Choroid plexus cyst of fetus resolved COVID-19 affecting in third trimester resolved Encounter for induction of labor resolved resolved Supervision of high-risk resolved Vanishing twin syndrome reso lved [facility] Work Phone: Evaluation note* Diagnosis Congestion of nasal sinus- Primary Other diseases of nasal cavity and sinuses Nausea and vomiting, unspecified vomiting type documented in this encounter [facility] Discharge instructions Additional Instructions I sent 2 prescriptions to your pharmacy take the antibiotic as prescribed. Follow-up and urine culture with your family physician or your [facility]. Do not take Zofran and Reglan together as these are both antiemetics. Ensure adequate hydration. Continue Tamiflu. Return with worsening symptoms or concerns. He tested positive for influenza A.[facility] Work Phone: Progress note Author Corina Daniel [facility] Note Date/Time January 23, 2025 10:33 am [facility] [address], [address] [place] [address] OFFICE VISIT Date of Service: 01/23/25 MR#: [id number] Acct: [id number] Name: EDEL GALLOWAY Rep #: [id number] : 1995 Provider: BRAYAN Daniel Age/Sex: 29/F Location: [facility] Status: Signed Intake Vital Signs 12/02/24 09:59 12/28/24 14:53 01/23/25 10:17 Height 5 ft 4 in 5 ft 4 in 5 ft 4 in Weight: 161 lb 8 oz BMI 27.7 BP 107/75 Intake Visit Reasons: 27wk ob/glucose Chief Complaint: 27wk OB Biometrics Technician Required: No Is patient in pain?: No Allergies No Known Allergies Allergy (Verified 01/23/25 10:15) Medications ?Medication ?Instructions ?Recorded ?Confirmed ?Type multivitamin no.47-iron fum 27 cap PO 09/27/24 5 History mg-folate no.1 1 mg-dha 300 mg capsule (PNV-DHA) metoclopramide HCl 10 mg tablet 10 mg PO Q6H PRN nause a and 11/18/24 01/23/25 Rx vomiting #14 tabs ondansetron 4 mg disintegrating 4 mg PO Q6H PRN nausea and 11/18/24 01/23/25 Rx tablet vomiting #30 tabs loratadine 10 mg tablet (Claritin) 10 mg PO QDAY 12/2801/23/25 History Last Menstrual Period: 07/18/24 : No PFSH PFSH Medical History Conjunctivitis, right eye Hx of abnormal cervical Pap smear Complete Spotting Heartburn Non-smoker Cholelithiases Frequent headaches Surgical History History of laparoscopic cholecystectomy (~03/2022) Hx of wisdom tooth extraction Family History Mother Diabetes Hypertension Grandmother Heart disease Social History adopted: No household members: spouse and children number of children: 1 current occupational status: employed 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: Yes (bloodborne pathogens) pets and animals: Yes pets and animals: dog(s) history of recent travel: No ([place], [place]) sexually active: Yes Smoking Status: Never smoker alcohol intake: current alcohol intake frequency: a few times a month Alcohol type: beer and wine details: not while substance use type: does not use well-balanced diet: daily or most days caffeine: No eating out: 1-3 times/week during the past year weight has: increased > 10 lbs what type of physical activity do you participate in: walking frequency: 1-2 times per week duration: 15-30 minutes/day maynor/episcopal: None seatbelt use: always do you feel safe at home: Yes additional social history: - Dave History 3 Elective abortions Hx Para 1 Spontaneous abortions 1 Hx # Term Pregnancies Ectopic pregnancies Hx # Pregnancies Multiple births # of living children 1 Past Pregnancies Del. Date Name GA/Weeks Outcome Route Bth Weight Infant Gen Labor Lgth Anesthesia Del Locatn Provider FOB 11/20/22 miscarriage @5-6 wks 09/24/23 [place] 40 live - full term 7#9oz Female ep idural [facility] Dr. Adrianna Acosta Delivery Date: 09/24/23 Last Updated by: Macrina Schwab COVID, vanishing twin, 2nd degree laceration HPI 27wk ob/glucose Details: EDEL GALLOWAY is a 29 year old who presents for routine OB visit. OB Visit JOE Calculator Estimated Delivery Date Method Current WG Current Estimate 04/24/25 LMP (Certain) 27w 0d Other Estimates 04/25/25 Ultrasound #1 26w 6d Expected Delivery Route/Plan Labor Preferences- CB/BF classes: [] labor support person: [] labor intervention preferences: [] pain management options preferred: [] cut cord/dad catch: [] : [] PP control planned: [] discussed possible routes of delivery and associated risks: [] special requests: [] Specific Issue/Plans Covid status: [] Flu vaccine: [] Tdap vaccine: [] Rhogam: [] LARC form signed: [] Problem list reviewed and updated with the most current plan of care details and appropriate orders placed. Relevant counseling for the gestational age provided. Continue routine care and follow up unless otherwise noted in visit notes/problem list details Initial Weight: Not Recorded Date -?-?-?-?-?-?-?-?-?-?-?-?- EGA Weight BP Urine Prot -?-?-?-?-?-?-?-?-?-?-?-?- Glucose FHR FuHt Pres Dilation -?-?-?-?-?-?-?-?-?-?-?-?- Effaced St Visit Note 10/05/24 -?-?-?-?-?-?-?-?-?-?-?-?- 11w 2d 164 lb 120/75 -?-?-?-?-?-?-?-?-?-?-?-?- 169 -?-?-?-?-?-?-?-?-?-?-?-?- JV- CRL is consi stent with LMP. She declines NIPT. wants to do anatomy scan in [place]. 11/02/24 -?-?-?-?-?-?-?-?-?-?-?-?- 15w 2d 160 lb 2 oz 122/85 Nega tive -?-?-?-?-?-?-?-?-?-?-?-?- Negative 150 -?-?-?-?-?-?-?-?-?-?-?-?- SM- no vb crampi ng 12/02/24 -?-?-?-?-?-?-?-?-?-?-?-?- 19w 4d 160 lb 2 oz 118/70 Nega tive -?-?-?-?-?-?-?-?-?-?-?-?- Negative 146 -?-?-?-?-?-?-?-?-?-?-?-?- -No VB. Luis cano. Repeat MFM US 12/26. 12/28/24 -?-?-?-?-?-?-?-?-?-?-?-?- 23w 2d 159 lb 2 oz 110/74 Nega tive -?-?-?-?-?-?-?-?-?-?-?-?- Negative 143 23 -?-?-?-?-?-?-?-?-?-?-?-?- -work in for [facility] freq. UA neg for infection. Has not been drinking much fluid and encouraged. Good Fm. No VB, LOF. 01/23/25 -?-?-?-?-?-?-?-?-?-?-?-?- 27w 0d 161 lb 8 oz 107/75 Nega tive -?-?-?-?-?-?-?-?-?-?-?-?- Negative 140 27 -?-?-?-?-?-?-?-?-?-?-?-?- KW- no vb/lof/ct x. good fm. glucose today. LARC today. ACOG First Trimester First Trimester: Discussed Second Trimester Second Trimester: Signs and Symptoms of Labor, Selecting a care provider, Reproductive Life Planning & Contreception and Intimate Partner Violence Third Trimester Third Trimester: Pain Management Plans, Labor support person(s), Immediate Larc, Signs and Symptoms of Preeclampsia, Education, Family Medical Leave or Disability Forms and Intimate Partner Violence; Discussed Tobacco Cessation and Discussed Depression ROS Const Reports system reviewed and no additional complaints, except as documented Eyes Reports system reviewed and no additional complaints, except as documented ENT Reports system reviewed and no additional complaints, except as documented Card Reports system reviewed and no additional complaints, except as documented Resp Reports system reviewed and no additional complaints, except as documented GI Reports system reviewed and no additional complaints, except as documented, Denies nausea and Denies vomiting Reports system reviewed and no additional complaints, except as documented Musc Reports system reviewed and no additional complaints, except as documented Skin/Breast Reports system reviewed and no additional complaints, except as documented Neuro Yes system reviewed and no additional complaints, except as documented Psych Reports system reviewed and no additional complaints, except as documented Endo Reports system reviewed and no additional complaints, except as documented James/Lymph Reports system reviewed and no additional complaints, except as documented Aller/Immun Reports system reviewed and no additional complaints, except as documented Exam Const General: cooperative, healthy appearing and no acute distress Orientation: alert, awake and oriented x3 Neck Neck: normal visual inspection and full ROM Resp Effort & Inspection: normal respiratory effort, able to speak in complete sentences and symmetric chest movement GI Inspection: normal to inspection Palpation: soft and other Other: gravid Skin General: no rashes or lesions noted Neuro General: patient alert, patient awake and patient oriented x3 Cognition: normal cognition Speech: speech normal Gait: normal gait Motor: muscle tone normal throughout Extrem General: normal to inspection and full ROM Psych Appearance: grossly normal Mental Status: mental status grossly normal Mood: congruent mood Affect: normal affect Speech and Movement: speech and movement normal Attitude: cooperative Thought Process: normal Thought Content: normal Judgment: judgment good Results POC Urinalysis 2 Dip (Clinic) Office Urine Glucose Negative Last Edit by Annita Espinosa on 01/23/25 10:26 Office Urine Protein Negative Last Edit by Annita Espinosa on 01/23/25 10:26 Coding Level of Care Code OB Routine Diagnoses Urinary tract infection in mother during second trimester of O23.42 Trimester: second trimester Abnormal ultrasound O28.3 History of miscarriage, currently O09.299 Supervision of high risk in second trimester O09.92 Trimester: second trimester 27 weeks gestation of Z3A.27 Weeks of gestation: 27 weeks Segmental and somatic dysfunction of sacral region M99.04 Segmental and somatic dysfunction of lumbar region M99.03 Segmental and somatic dysfunction of thoracic region M99.02 Segmental and somatic dysfunction of cervical region M99.01 Neck pain M54.2 Assessment and Plan Assessment and Plan (1) UTI in : Status: Acute Qualifiers: Trimester: second trimester Qualified Code(s): O23.42 - Unspecified infection of urinary tract in , second trimester Comment: Dx [facility] urgent care. Needs rpt culture next visit (2) Abnormal ultrasound: Status: Acute Comment: CVI (normal variant) noted. MFM will bring back in 1 month to monitor Appt 12/26:RESOLVED (3) History of miscarriage, currently : Status: Acute (4) Supervision of high-risk : Status: Acute Qualifiers: Trimester: second trimester Qualified Code(s): O09.92 - Supervision of high risk , unspecified, second trimester Comment: PRR, , JOE 04/24/25, JUDIE [place], Dave (5) : Status: Acute Qualifiers: Weeks of gestation: 27 weeks Qualified Code(s): Z3A.27 - 27 weeks gestation of Comment: declined NIPT & Carrier testing (6) Segmental and somatic dysfunction of sacral region: Status: Acute (7) Segmental and somatic dysfunction of lumbar region: Status: Acute (8) Segmental and somatic dysfunction of thoracic region: Status: Acute (9) Segmental and somatic dysfunction of cervical region: Status: Acute (10) Neck pain: Status: Acute Orders: Orders POC Urinalysis 2 Dip (Clinic) Today Plan Details Additional Comments: ACOG trimester education reviewed and updated. see problem list details for updated plan management information and see below for orders placed at this visit. GA appropriate handout given. Goals & Barriers: Goals Decrease pain Improve ROM Decrease inflammation Barriers Poor posture at work/baby 01/23/25 1033 <Electronically signed by Corina norman CNM> Date _ oCrina Daniel CNM Cosigner Signature: Date (if applicable) CC: ~ [facility] Work Phone: Progress note Author Corina Daniel [facility] Note Date/Time February 06, 2025 11:33 am [facility] [address], [address] [place] [address] OFFICE VISIT Date of Service: 02/06/25 MR#: [id number] Acct: [id number] Name: EDEL GALLOWAY Rep #: [id number] : 1995 Provider: BRAYAN Daniel Age/Sex: 29/F Location: [facility] Status: Signed Intake Vital Signs 12/28/24 14:53 01/23/25 10:17 02/06/25 11:11 Height 5 ft 4 in 5 ft 4 in 5 ft 4 in Weight: 162 lb 4 oz BMI 27.8 BP 112/75 Intake Visit Reasons: 29 wk ob Chief Complaint: 29wk OB Biometrics Technician Required: No Is patient in pain?: No Allergies No Known Allergies Allergy (Verified 02/06/25 11:11) Medications ?Medication ?Instructions ?Recorded ?Confirmed ?Type multivitamin no.47-iron fum 27 cap PO 09/27/24 5 History mg-folate no.1 1 mg-dha 300 mg capsule (PNV-DHA) metoclopramide HCl 10 mg tablet 10 mg PO Q6H PRN nause a and 11/18/24 02/06/25 Rx vomiting #14 tabs ondansetron 4 mg disintegrating 4 mg PO Q6H PRN nausea and 11/18/24 02/06/25 Rx tablet vomiting #30 tabs loratadine 10 mg tablet (Claritin) 10 mg PO QDAY 12/2802/06/25 History Last Menstrual Period: 07/18/24 : No Have you fallen in the past year?: No PFSH PFSH Medical History Conjunctivitis, right eye Hx of abnormal cervical Pap smear Complete Spotting Heartburn Non-smoker Cholelithiases Frequent headaches Surgical History History of laparoscopic cholecystectomy (~03/2022) Hx of wisdom tooth extraction Family History Mother Diabetes Hypertension Grandmother Heart disease Social History adopted: No household members: spouse and children number of children: 1 current occupational status: employed 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: Yes (bloodborne pathogens) pets and animals: Yes pets and animals: dog(s) history of recent travel: No ([place], [place]) sexually active: Yes Smoking Status: Never smoker alcohol intake: current alcohol intake frequency: a few times a month Alcohol type: beer and wine details: not while substance use type: does not use well-balanced diet: daily or most days caffeine: No eating out: 1-3 times/week during the past year weight has: increased > 10 lbs what type of physical activity do you participate in: walking frequency: 1-2 times per week duration: 15-30 minutes/day maynor/episcopal: None seatbelt use: always do you feel safe at home: Yes additional social history: - Dave History 3 Elective abortions Hx Para 1 Spontaneous abortions 1 Hx # Term Pregnancies Ectopic pregnancies Hx # Pregnancies Multiple births # of living children 1 Past Pregnancies Del. Date Name GA/Weeks Outcome Route Bth Weight Gen Labor Lgth Anesthesia Del Locatn Provider FOB 11/20/22 miscarriage @5-6 wks 09/24/23 Delainey 40 live - full term 7#9oz Female ep idural [facility] Dr. Adrianna Acosta Delivery Date: 09/24/23 Last Updated by: Macrina TEJADA, vanishing twin, 2nd degree laceration HPI 29 wk ob Details: EDEL GALLOWAY is a 29 year old who presents for routine OB visit. OB Visit JOE Calculator Estimated Delivery Date Method Current WG Current Estimate 04/24/25 LMP (Certain) 29w 0d Other Estimates 04/25/25 Ultrasound #1 28w 6d Expected Delivery Route/Plan Labor Preferences- CB/BF classes: [] labor support person: [] labor intervention preferences: [] pain management options preferred: [] cut cord/dad catch: [] : [] PP control planned: [] discussed possible routes of delivery and associated risks: [] special requests: [] Specific Issue/Plans Covid status: [] Flu vaccine: [] Tdap vaccine: [] Rhogam: [] LARC form signed: [] Problem list reviewed and updated with the most current plan of care details and appropriate orders placed. Relevant counseling for the gestational age provided. Continue routine care and follow up unless otherwise noted in visit notes/problem list details Initial Weight: Not Recorded Date -?-?-?-?-?-?-?-?-?-?-?-?- EGA Weight BP Urine Prot -?-?-?-?-?-?-?-?-?-?-?-?- Glucose FHR FuHt Pres Dilation -?-?-?-?-?-?-?-?-?-?-?-?- Effaced St Visit Note 10/05/24 -?-?-?-?-?-?-?-?-?-?-?-?- 11w 2d 164 lb 120/75 -?-?-?-?-?-?-?-?-?-?-?-?- 169 -?-?-?-?-?-?-?-?-?-?-?-?- JV- CRL is consi stent with LMP. She declines NIPT. wants to do anatomy scan [place] 11/02/24 -?-?-?-?-?-?-?-?-?-?-?-?- 15w 2d 160 lb 2 oz 122/85 Nega tive -?-?-?-?-?-?-?-?-?-?-?--?- Negative 150 -?-?-?-?-?-?-?-?-?-?-?-?- SM- no vb crampi ng 12/02/24 -?-?-?-?-?-?-?-?-?-?-?-?- 19w 4d 160 lb 2 oz 118/70 Nega tive -?-?-?-?-?-?-?-?-?-?-?-?- Negative 146 -?-?-?-?-?-?-?-?-?-?-?-?- MH-No VB. Luis cano. Repeat MFM US 12/26. 12/28/24 -?-?-?-?-?-?--?-?-?-?-?-?- 23w 2d 159 lb 2 oz 110/74 Nega tive -?-?-?-?-?-?-?-?-?-?-?-?- Negative 143 23 -?-?-?-?-?-?-?-?-?-?-?-?- [facility] neg for infection. Has not been drinking much fluid and encouraged. Good Fm. No VB, LOF. 01/23/25 -?-?-?-?-?-?-?-?-?-?-?-?- 27w 0d 161 lb 8 oz 107/75 Nega tive -?-?-?-?-?-?-?-?-?-?-?-?- Negative 140 27 -?-?-?-?-?-?-?-?-?-?-?-?- KW- no vb/lof/ct x. good fm. glucose today. LARC today. 02/06/25 -?--?-?-?-?-?-?-?-?-?-?-?- 29w 0d 162 lb 4 oz 112/75 Nega tive -?-?-?-?-?-?-?-?-?-?-?-?- Negative 135 29 -?-?-?-?-?-?-?-?-?-?-?-?- KW-no vb/lof/ctx . good fm. anemic-will start taking PNV and get HGB rechecked. ACOG First Trimester First Trimester: Discussed Second Trimester Second Trimester: Signs and Symptoms of Labor, Selecting a care provider, Reproductive Life Planning & Contreception and Intimate Partner Violence Third Trimester Third Trimester: Pain Management Plans, Labor support person(s), Immediate Larc, Signs and Symptoms of Preeclampsia, Education, Family Medical Leave or Disability Forms and Intimate Partner Violence; Discussed Tobacco Cessation and Discussed Depression ROS Const Reports system reviewed and no additional complaints, except as documented Eyes Reports system reviewed and no additional complaints, except as documented ENT Reports system reviewed and no additional complaints, except as documented Card Reports system reviewed and no additional complaints, except as documented Resp Reports system reviewed and no additional complaints, except as documented GI Reports system reviewed and no additional complaints, except as documented, Denies nausea and Denies vomiting Reports system reviewed and no additional complaints, except as documented Musc Reports system reviewed and no additional complaints, except as documented Skin/Breast Reports system reviewed and no additional complaints, except as documented Neuro Yes system reviewed and no additional complaints, except as documented Psych Reports system reviewed and no additional complaints, except as documented Endo Reports system reviewed and no additional complaints, except as documented James/Lymph Reports system reviewed and no additional complaints, except as documented Aller/Immun Reports system reviewed and no additional complaints, except as documented Exam Const General: cooperative, healthy appearing and no acute distress Orientation: alert, awake and oriented x3 Neck Neck: normal visual inspection and full ROM Resp Effort & Inspection: normal respiratory effort, able to speak in complete sentences and symmetric chest movement GI Inspection: normal to inspection Palpation: soft and other Other: gravid Skin General: no rashes or lesions noted Neuro General: patient alert, patient awake and patient oriented x3 Cognition: normal cognition Speech: speech normal Gait: normal gait Motor: muscle tone normal throughout Extrem General: normal to inspection and full ROM Psych Appearance: grossly normal Mental Status: mental status grossly normal Mood: congruent mood Affect: normal affect Speech and Movement: speech and movement normal Attitude: cooperative Thought Process: normal Thought Content: normal Judgment: judgment good Results POC Urinalysis 2 Dip (Clinic) Office Urine Glucose Negative Last Edit by Annita Espinosa on 02/06/25 11:19 Office Urine Protein Negative Last Edit by Annita Espinosa on 02/06/25 11:19 Immunizations Adacel(Tdap Adolesn/Adult)(PF) 2 Lf-(2.5-5-3-5)-5 Lf/0.5 mL IM syringe Performing Provider: Corina Daniel CNM Performing Location: [facility] [place] Administered by: Annita Espinosa on 02/06/25 11:20 Dose Route Admin Location Dispensed Lot Number Expiration Date 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 mL IM Left Deltoid 0.5 mL [id number] 02/03/26 00902-856-10 [employer] VIS Given Date VIS Provided VIS Publication Date 02/06/25 Single Vaccine 24 Eligibility Eligibility Date Funding Source Not Applicable Coding Level of Care Code OB Routine Diagnoses Anemia affecting O99.019 Urinary tract infection in mother during second trimester of O23.42 Trimester: second trimester Abnormal ultrasound O28.3 History of miscarriage, currently O09.299 Supervision of high risk in second trimester O09.92 Trimester: second trimester 29 weeks gestation of Z3A.29 Weeks of gestation: 29 weeks Segmental and somatic dysfunction of sacral region M99.04 Segmental and somatic dysfunction of lumbar region M99.03 Segmental and somatic dysfunction of cervical region M99.01 Segmental and somatic dysfunction of thoracic region M99.02 Neck pain M54.2 Assessment and Plan Assessment and Plan (1) Anemia affecting : Status: Acute Comment: PO iron. cbc in 4 weeks (2) UTI in : Status: Acute Qualifiers: Trimester: second trimester Qualified Code(s): O23.42 - Unspecified infection of urinary tract in , second trimester Comment: Dx [facility] urgent care. Needs rpt culture next visit (3) Abnormal ultrasound: Status: Acute Comment: CVI (normal variant) noted. MFM will bring back in 1 month to monitor Appt 12/26:RESOLVED (4) History of miscarriage, currently : Status: Acute (5) Supervision of high-risk : Status: Acute Qualifiers: Trimester: second trimester Qualified Code(s): O09.92 - Supervision of high risk , unspecified, second trimester Comment: PRR, , JOE 04/24/25, JUDIE [place], Dave (6) : Status: Acute Qualifiers: Weeks of gestation: 29 weeks Qualified Code(s): Z3A.29 - 29 weeks gestation of Comment: declined NIPT & Carrier testing (7) Segmental and somatic dysfunction of sacral region: Status: Acute (8) Segmental and somatic dysfunction of lumbar region: Status: Acute (9) Segmental and somatic dysfunction of cervical region: Status: Acute (10) Segmental and somatic dysfunction of thoracic region: Status: Acute (11) Neck pain: Status: Acute Orders: Orders POC Urinalysis 2 Dip (Clinic) Today Tdap Immunization Today Z23 - Encounter for immunization Plan Details Additional Comments: ACOG trimester education reviewed and updated. see problem list details for updated plan management information and see below for orders placed at this visit. GA appropriate handout given. Goals & Barriers: Goals Decrease pain Improve ROM Decrease inflammation Barriers Poor posture at work/baby Clinical Quality Measures Falls Risk Screening/Assistive Devices Have you fallen in the past year?: No 02/06/25 1134 <Electronically signed by Corina norman CNM> Date _ Corina Daniel CNM Cosigner Signature: Date (if applicable) CC: ~ [facility] Work Phone: [place] note Author Crissy Rodas [facility] Note Date/Time February 24, 2025 11:4 5am [facility] [address] [place] [address], [address] [place] [address] OFFICE VISIT Date of Service: 02/24/25 MR#: [id number] Acct: [id number] Name: EDEL GALLOWAY CHUY Rep #: [id number] : 1995 Provider: Dr. Delfino Rodas MD Age/Sex: 29/F Location: [facility] Status: Signed Intake Vital Signs 01/23/25 10:17 02/06/25 11:11 02/24/25 11:08 Height 5 ft 4 in 5 ft 4 in 5 ft 4 in Weight: 164 lb BMI 28.1 BP 126/79 H Intake Visit Reasons: 31wk ob Biometrics Technician Required: No Is patient in pain?: No Feel stressed/tense/nervous/anxious/difficulty sleeping: not at all Allergies No Known Allergies Allergy (Verified 02/24/25 11:09) Medications ?Medication ?Instructions ?Recorded ?Confirmed ?Type multivitamin no.47-iron fum 27 cap PO 09/27/24 5 History mg-folate no.1 1 mg-dha 300 mg capsule (PNV-DHA) metoclopramide HCl 10 mg tablet 10 mg PO Q6H PRN nause a and 11/18/24 02/24/25 Rx vomiting #14 tabs ondansetron 4 mg disintegrating 4 mg PO Q6H PRN nausea and 11/18/24 02/24/25 Rx tablet vomiting #30 tabs loratadine 10 mg tablet (Claritin) 10 mg PO QDAY 12/2802/24/25 History Last Menstrual Period: 07/18/24 Zika: Zika virus screening: Negative : No PFSH PFSH Medical History Conjunctivitis, right eye Hx of abnormal cervical Pap smear Complete Spotting Heartburn Non-smoker Cholelithiases Frequent headaches Surgical History History of laparoscopic cholecystectomy (~03/2022) Hx of wisdom tooth extraction Family History Mother Diabetes Hypertension Grandmother Heart disease Social History adopted: No household members: spouse and children number of children: 1 current occupational status: employed 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: Yes (bloodborne pathogens) pets and animals: Yes pets and animals: dog(s) history of recent travel: No ([place], [place]) sexually active: Yes Smoking Status: Never smoker alcohol intake: current alcohol intake frequency: a few times a month Alcohol type: beer and wine details: not while substance use type: does not use well-balanced diet: daily or most days caffeine: No eating out: 1-3 times/week during the past year weight has: increased > 10 lbs what type of physical activity do you participate in: walking frequency: 1-2 times per week duration: 15-30 minutes/day maynor/episcopal: None seatbelt use: always do you feel safe at home: Yes additional social history: - Dave History 3 Elective abortions Hx Para 1 Spontaneous abortions 1 Hx # Term Pregnancies Ectopic pregnancies Hx # Pregnancies Multiple births # of living children 1 Past Pregnancies Del. Date Name GA/Weeks Outcome Route Bth Weight Infant Gen Labor Lgth Anesthesia Del Locatn Provider FOB 11/20/22 miscarriage @5-6 wks 09/24/23 Loreny 40 live - full term 7#9oz Female ep idural [facility] Dr. Adrianna Acosta Delivery Date: 09/24/23 Last Updated by: Macrina Schwab COVID, vanishing twin, 2nd degree laceration HPI 31wk ob Details: EDEL GALLOWAY is a 29 year old who presents for routine OB visit. OB Visit JOE Calculator Estimated Delivery Date Method Current WG Current Estimate 04/24/25 LMP (Certain) 31w 4d Other Estimates 04/25/25 Ultrasound #1 31w 3d Expected Delivery Route/Plan Labor Preferences- CB/BF classes: [] labor support person: [] labor intervention preferences: [] pain management options preferred: [] cut cord/dad catch: [] : [] PP control planned: [] discussed possible routes of delivery and associated risks: [] special requests: [] Specific Issue/Plans Covid status: [] Flu vaccine: [] Tdap vaccine: [] Rhogam: [] LARC form signed: [] Problem list reviewed and updated with the most current plan of care details and appropriate orders placed. Relevant counseling for the gestational age provided. Continue routine care and follow up unless otherwise noted in visit notes/problem list details Initial Weight: Not Recorded Date -?-?-?-?-?-?-?-?-?-?-?-?- EGA Weight BP Urine Prot -?-?-?-?-?-?-?-?-?-?-?-?- Glucose FHR FuHt Pres Dilation -?-?-?-?-?-?-?-?-?-?-?-?- Effaced St Visit Note 10/05/24 -?-?-?-?-?-?-?-?-?-?-?-?- 11w 2d 164 lb 120/75 -?-?-?-?-?-?-?-?-?-?-?-?- 169 -?-?-?-?-?-?-?-?-?-?-?-?- JV- CRL is consi stent with LMP. She declines NIPT. wants to do anatomy scan in [place]. 11/02/24 -?-?-?-?-?-?-?-?-?-?-?-?- 15w 2d 160 lb 2 oz 122/85 Nega tive -?-?-?-?-?-?-?-?-?-?-?-?- Negative 150 -?-?-?-?-?-?-?-?-?-?-?-?- SM- no vb crampi 12/02/24 -?-?-?-?-?-?-?-?-?--?-?-?- 19w 4d 160 lb 2 oz 118/70 Nega tive -?-?-?-?-?-?-?-?-?-?-?-?- Negative 146 -?-?-?-?-?-?-?-?-?-?-?-?- MH-No VB. Luis cano. Repeat MFM US 12/26. 12/28/24 -?-?-?-?-?-?-?-?-?-?-?-?- 23w 2d 159 lb 2 oz 110/74 Nega tive -?-?-?-?-?-?-?-?-?-?-?-?- Negative 143 23 -?-?-?-?-?-?-?-?-?-?-?-?- -work in for [facility] fre[facility]. UA neg for infection. Has not been drinking much fluid and encouraged. Good Fm. No VB, LOF. 01/23/25 -?-?-?-?-?-?-?-?-?-?-?-?- 27w 0d 161 lb 8 oz 107/75 Nega tive -?-?-?-?-?-?-?-?-?-?-?-?- Negative 140 27 -?-?-?-?-?-?-?-?-?-?-?-?- KW- no vb/lof/ct x. good fm. glucose today. LARC today. 02/06/25 -?-?-?-?-?-?-?-?-?-?-?-?- 29w 0d 162 lb 4 oz 112/75 Nega tive -?-?-?-?-?-?-?-?-?-?-?-?- Negative 135 29 -?-?-?-?-?-?-?-?-?-?-?-?- KW-no vb/lof/ctx . good fm. anemic-will start taking PNV and get HGB rechecked. 02/24/25 -?-?-?-?-?-?-?-?-?-?-?-?- 31w 4d 164 lb 126/79 Negative -?-?-?-?-?-?-?-?-?-?-?-?- Negative 135 32 -?-?-?-?-?-?-?-?-?-?-?-?- SM- no vb lof go od fm irreuglar ctx ACOG First Trimester First Trimester: Discussed Second Trimester Second Trimester: Signs and Symptoms of Labor, Selecting a care provider, Reproductive Life Planning & Contreception and Intimate Partner Violence Third Trimester Third Trimester: Pain Management Plans, Labor support person(s), Immediate Larc, Signs and Symptoms of Preeclampsia, Education, Family Medical Leave or Disability Forms and Intimate Partner Violence; Discussed Tobacco Cessation and Discussed Depression Results POC Urinalysis 2 Dip (Clinic) Office Urine Glucose Negative Last Edit by Ida Bosch on 02/24/25 11:14 Office Urine Protein Negative Last Edit by Ida Bosch on 02/24/25 11:14 Coding Level of Care Code OB Routine Diagnoses Anemia affecting O99.019 Urinary tract infection in mother during second trimester of O23.42 Trimester: second trimester Abnormal ultrasound O28.3 History of miscarriage, currently O09.299 Supervision of high risk in second trimester O09.92 Trimester: second trimester 31 weeks gestation of Z3A.31 Weeks of gestation: 31 weeks Segmental and somatic dysfunction of sacral region M99.04 Segmental and somatic dysfunction of lumbar region M99.03 Segmental and somatic dysfunction of thoracic region M99.02 Segmental and somatic dysfunction of cervical region M99.01 Neck pain M54.2 Assessment and Plan Assessment and Plan (1) Anemia affecting : Status: Acute Comment: PO iron. cbc in 4 weeks (2) UTI in : Status: Acute Qualifiers: Trimester: second trimester Qualified Code(s): O23.42 - Unspecified infection of urinary tract in , second trimester Comment: Dx [facility] urgent care. Needs rpt culture next visit (3) Abnormal ultrasound: Status: Acute Comment: CVI (normal variant) noted. MFM will bring back in 1 month to monitor Appt 12/26:RESOLVED (4) History of miscarriage, currently : Status: Acute (5) Supervision of high-risk : Status: Acute Qualifiers: Trimester: second trimester Qualified Code(s): O09.92 - Supervision of high risk , unspecified, second trimester Comment: PRR, , JOE 04/24/25, girl PC Mirosl[place], Dave (6) : Status: Acute Qualifiers: Weeks of gestation: 31 weeks Qualified Code(s): Z3A.31 - 31 weeks gestation of Comment: declined NIPT & Carrier testing (7) Segmental and somatic dysfunction of sacral region: Status: Acute (8) Segmental and somatic dysfunction of lumbar region: Status: Acute (9) Segmental and somatic dysfunction of thoracic region: Status: Acute (10) Segmental and somatic dysfunction of cervical region: Status: Acute (11) Neck pain: Status: Acute Orders: Orders POC Urinalysis 2 Dip (Clinic) Today Plan Details Goals & Barriers: Goals Decrease pain Improve ROM Decrease inflammation Barriers Poor posture at work/baby 02/24/25 2085 <Electronically signed by Crissy henriquez MD> Date _ Crissy Rodas MD Cosigner Signature: Date (if applicable) CC: ~ [facility] Work Phone: Progress note Author Farrah Restrepo [facility] Note Date/Time March 08, 2025 10:41 am [facility] [address], [address] [place] [address] OFFICE VISIT Date of Service: 03/08/25 MR#: [id number] Acct: [id number] Name: EDEL GALLOWAY Rep #: [id number] : 1995 Provider: Dr. Khadra Manning, Age/Sex: 29/F Location: [facility] Status: Signed Intake Vital Signs 01/23/25 10:17 02/24/25 11:08 03/08/25 10:26 03/08/25 10:30 Height 5 ft 4 in 5 ft 4 in 5 ft 4 in 5 ft 4 in Weight: 162 lb BMI 27.8 BP 97/66 Intake Visit Reasons: 33wk ob Biometrics Technician Required: No Is patient in pain?: No Allergies No Known Allergies Allergy (Verified 03/08/25 10:25) Medications ?Medication ?Instructions ?Recorded ?Confirmed ?Type multivitamin no.47-iron fum 27 cap PO 09/27/24 5 History mg-folate no.1 1 mg-dha 300 mg capsule (PNV-DHA) metoclopramide HCl 10 mg tablet 10 mg PO Q6H PRN nause a and 11/18/24 03/08/25 Rx vomiting #14 tabs ondansetron 4 mg disintegrating 4 mg PO Q6H PRN nausea and 11/18/24 03/08/25 Rx tablet vomiting #30 tabs loratadine 10 mg tablet (Claritin) 10 mg PO QDAY 12/2803/08/25 History Last Menstrual Period: 07/18/24 Zika: Zika virus screening: Negative : No PFSH PFSH Medical History Conjunctivitis, right eye Hx of abnormal cervical Pap smear Complete Spotting Heartburn Non-smoker Cholelithiases Frequent headaches Surgical History History of laparoscopic cholecystectomy (~03/2022) Hx of wisdom tooth extraction Family History Mother Diabetes Hypertension Grandmother Heart disease Social History adopted: No household members: spouse and children number of children: 1 current occupational status: employed 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: Yes (bloodborne pathogens) pets and animals: Yes pets and animals: dog(s) history of recent travel: No ([place], [place]) sexually active: Yes Smoking Status: Never smoker alcohol intake: current alcohol intake frequency: a few times a month Alcohol type: beer and wine details: not while substance use type: does not use well-balanced diet: daily or most days caffeine: No eating out: 1-3 times/week during the past year weight has: increased > 10 lbs what type of physical activity do you participate in: walking frequency: 1-2 times per week duration: 15-30 minutes/day maynor/episcopal: None seatbelt use: always do you feel safe at home: Yes additional social history: - Dave History 3 Elective abortions Hx Para 1 Spontaneous abortions 1 Hx # Term Pregnancies Ectopic pregnancies Hx # Pregnancies Multiple births # of living children 1 Past Pregnancies Del. Date Name GA/Weeks Outcome Route Bth Weight Infant Gen Labor Lgth Anesthesia Del Locatn Provider FOB 11/20/22 miscarriage @5-6 wks 09/24/23 Delainey 40 live - full term 7#9oz Female ep idural [facility] Dr. Adrianna Acosta Delivery Date: 09/24/23 Last Updated by: Macrina Schwab COVID, vanishing twin, 2nd degree laceration HPI 33wk ob Details: EDEL GALLOWAY is a 29 year old who presents for routine OB visit. OB Visit JOE Calculator Estimated Delivery Date Method Current WG Current Estimate 04/24/25 LMP (Certain) 33w 2d Other Estimates 04/25/25 Ultrasound #1 33w 1d Expected Delivery Route/Plan Labor Preferences- CB/BF classes: [] labor support person: [] labor intervention preferences: [] pain management options preferred: [] cut cord/dad catch: [] : [] PP control planned: [] discussed possible routes of delivery and associated risks: [] special requests: [] Specific Issue/Plans Covid status: [] Flu vaccine: [] Tdap vaccine: [] Rhogam: [] LARC form signed: [] Problem list reviewed and updated with the most current plan of care details and appropriate orders placed. Relevant counseling for the gestational age provided. Continue routine care and follow up unless otherwise noted in visit notes/problem list details Initial Weight: Not Recorded Date -?-?-?-?-?-?-?-?-?-?-?-?- EGA Weight BP Urine Prot -?-?-?-?-?-?-?-?-?-?-?-?- Glucose FHR FuHt Pres Dilation -?-?-?-?-?-?-?-?-?-?-?-?- Effaced St Visit Note 10/05/24 -?-?-?-?-?-?-?-?-?-?-?-?- 11w 2d 164 lb 120/75 -?-?-?-?-?-?-?-?-?-?-?-?- 169 -?-?-?-?-?-?-?-?-?-?-?-?- JV- CRL is consi stent with LMP. She declines NIPT. wants to do anatomy scan in [place]. 11/02/24 -?-?-?-?-?-?-?-?-?-?-?-?- 15w 2d 160 lb 2 oz 122/85 Nega tive -?-?-?-?-?-?-?-?-?-?-?-?- Negative 150 -?-?-?-?-?-?-?-?-?-?-?-?- SM- no vb crampi ng 12/02/24 -?-?-?-?-?-?-?-?-?-?-?-?- 19w 4d 160 lb 2 oz 118/70 Nega tive -?-?-?-?-?-?-?-?-?-?-?-?- Negative 146 -?-?-?-?-?-?-?-?-?-?-?-?- -No VB. Luis cano. Repeat MFM US 12/26. 12/28/24 -?-?-?-?-?-?-?-?-?-?-?-?- 23w 2d 159 lb 2 oz 110/74 Nega tive -?-?-?-?-?-?-?-?-?-?-?-?- Negative 143 23 -?-?-?-?-?-?-?-?-?-?-?-?- -work in for u rinary freq. UA neg for infection. Has not been drinking much fluid and encouraged. Good Fm. No VB, LOF. 01/23/25 -?-?-?-?-?-?-?-?-?-?-?-?- 27w 0d 161 lb 8 oz 107/75 Nega tive -?-?-?-?-?-?-?-?-?-?-?-?- Negative 140 27 -?-?-?-?-?-?-?-?-?-?-?-?- KW- no vb/lof/ct x. good fm. glucose today. LARC today. 02/06/25 -?-?-?-?-?-?-?-?-?-?-?-?- 29w 0d 162 lb 4 oz 112/75 Nega tive -?-?-?-?-?-?-?-?-?-?-?-?- Negative 135 29 -?-?-?-?-?-?-?-?-?-?-?-?- KW-no vb/lof/ctx . good fm. anemic-will start taking PNV and get HGB rechecked. 02/24/25 -?-?-?-?-?-?-?-?-?-?-?-?- 31w 4d 164 lb 126/79 Negative -?-?-?-?-?-?-?-?-?-?-?-?- Negative 135 32 -?-?-?-?-?-?-?-?-?-?-?-?- SM- no vb lof go od fm irreuglar ctx 03/08/25 -?-?-?-?-?-?-?-?-?-?-?-?- 33w 2d 162 lb 97/66 -?-?-?-?-?-?-?-?-?-?-?-?- 150 33 -?-?-?-?-?-?-?-?-?-?-?-?- JV- no lof, vagi nal bleeding, or dec fm. no complaints other than some air hunger of ACOG First Trimester First Trimester: Discussed Second Trimester Second Trimester: Signs and Symptoms of Labor, Selecting a care provider, Reproductive Life Planning & Contreception and Intimate Partner Violence Third Trimester Third Trimester: Pain Management Plans, Labor support person(s), Immediate Larc, Signs and Symptoms of Preeclampsia, Education, Family Medical Leave or Disability Forms and Intimate Partner Violence; Discussed Tobacco Cessation and Discussed Depression Coding Level of Care Code OB Routine Diagnoses Anemia affecting O99.019 Urinary tract infection in mother during second trimester of O23.42 Trimester: second trimester Abnormal ultrasound O28.3 History of miscarriage, currently O09.299 Supervision of high risk in second trimester O09.92 Trimester: second trimester 33 weeks gestation of Z3A.33 Weeks of gestation: 33 weeks Neck pain M54.2 Assessment and Plan Assessment and Plan (1) Anemia affecting : Status: Acute Comment: PO iron. cbc in 4 weeks (2) UTI in : Status: Acute Qualifiers: Trimester: second trimester Qualified Code(s): O23.42 - Unspecified infection of urinary tract in , second trimester Comment: Dx [facility] urgent care. Needs rpt culture next visit (3) Abnormal ultrasound: Status: Acute Comment: CVI (normal variant) noted. MFM will bring back in 1 month to monitor Appt 12/26:RESOLVED (4) History of miscarriage, currently : Status: Acute (5) Supervision of high-risk : Status: Acute Qualifiers: Trimester: second trimester Qualified Code(s): O09.92 - Supervision of high risk , unspecified, second trimester Comment: PRR, , JOE 04/24/25, girl PC [place], Dave (6) : Status: Acute Qualifiers: Weeks of gestation: 33 weeks Qualified Code(s): Z3A.33 - 33 weeks gestation of Comment: declined NIPT & Carrier testing (7) Neck pain: Status: Acute Orders: Orders POC Urinalysis 2 Dip (Clinic) Today CBC W/Diff, Automated Today O99.019 - Anemia complicating , unspecified trimester Plan Details Goals & Barriers: Goals Decrease pain Improve ROM Decrease inflammation Barriers Poor posture at work/baby 03/08/25 1041 <Electronically signed by Farrah Harper DO> Date _ Farrah Manning DO Cosigner Signature: Date (if applicable) CC: ~ [facility] Work Phone: Progress note Author Corina Daniel [facility] Note Date/Time April 03, 2025 10:[facility] [address], [place] [address] OFFICE VISIT Date of Service: 04/03/25 MR#: [id number] Acct: [id number] Name: EDEL GALLOWAY CHUY Rep #: [id number] : 1995 Provider: BRAYAN Daniel Age/Sex: 30/F Location: [facility] Status: Signed Intake Vital Signs 02/06/25 11:11 03/30/25 14:46 04/03/25 10:21 Height 5 ft 4 in 5 ft 4 in 5 ft 4 in Weight: 165 lb 2 oz BMI 28.3 BP 116/74 Intake Visit Reasons: 37wk ob Chief Complaint: 37wk ob Biometrics Technician Required: No Is patient in pain?: No Allergies No Known Allergies Allergy (Verified 04/03/25 10:18) Medications ?Medication ?Instructions ?Recorded ?Confirmed ?Type multivitamin no.47-iron fum 27 cap PO 09/27/24 5 History mg-folate no.1 1 mg-dha 300 mg capsule (PNV-DHA) ondansetron 4 mg disintegrating 4 mg PO Q6H PRN nausea and 11/18/24 04/03/25 Rx tablet vomiting #30 tabs loratadine 10 mg tablet (Claritin) 10 mg PO QDAY 12/2804/03/25 History Last Menstrual Period: 07/18/24 : No PFSH PFSH Medical History Conjunctivitis, right eye Hx of abnormal cervical Pap smear Complete Spotting Heartburn Non-smoker Cholelithiases Frequent headaches Surgical History History of laparoscopic cholecystectomy (~03/2022) Hx of wisdom tooth extraction Family History Mother Diabetes Hypertension Grandmother Heart disease Social History adopted: No household members: spouse and children number of children: 1 current occupational status: employed 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: Yes (bloodborne pathogens) pets and animals: Yes pets and animals: dog(s) history of recent travel: No ([place], [place]) sexually active: Yes Smoking Status: Never smoker alcohol intake: current alcohol intake frequency: a few times a month Alcohol type: beer and wine details: not while substance use type: does not use well-balanced diet: daily or most days caffeine: No eating out: 1-3 times/week during the past year weight has: increased > 10 lbs what type of physical activity do you participate in: walking frequency: 1-2 times per week duration: 15-30 minutes/day maynor/episcopal: None seatbelt use: always do you feel safe at home: Yes additional social history: - Dave History 3 Elective abortions Hx Para 1 Spontaneous abortions 1 Hx # Term Pregnancies Ectopic pregnancies Hx # Pregnancies Multiple births # of living children 1 Past Pregnancies Del. Date Name GA/Weeks Outcome Route Bth Weight Gen Labor Lgth Anesthesia Del Locatn Provider FOB 11/20/22 miscarriage @5-6 wks 09/24/23 Delainey 40 live - full term 7#9oz Female ep idural [facility] Dr. Adrianna Acosta Delivery Date: 09/24/23 Last Updated by: Macrina Schwab COVID, vanishing twin, 2nd degree laceration HPI 37wk ob Details: EDEL GALLOWAY is a 30 year old who presents for routine OB visit. OB Visit JOE Calculator Estimated Delivery Date Method Current WG Current Estimate 04/24/25 LMP (Certain) 37w 0d Other Estimates 04/25/25 Ultrasound #1 36w 6d Expected Delivery Route/Plan Labor Preferences- CB/BF classes: no labor support person: Dave labor intervention preferences: [] pain management options preferred: epidural cut cord/dad catch: YES : yes PP control planned: discussed possible routes of delivery and associated risks: [] special requests: [] Specific Issue/Plans Covid status: [] Flu vaccine: [] Tdap vaccine: given Rhogam: NA LARC form signed: yes Problem list reviewed and updated with the most current plan of care details and appropriate orders placed. Relevant counseling for the gestational age provided. Continue routine care and follow up unless otherwise noted in visit notes/problem list details Initial Weight: Not Recorded Date -?-?-?-?-?-?-?-?-?-?-?-?- EGA Weight BP Urine Prot -?-?-?-?-?-?-?-?-?-?-?-?- Glucose FHR FuHt Pres Dilation -?-?-?-?-?-?-?-?-?-?-?-?- Effaced St Visit Note 10/05/24 -?-?-?-?-?-?-?-?-?-?-?-?- 11w 2d 164 lb 120/75 -?-?-?-?-?-?-?-?-?-?-?-?- 169 -?-?--?-?-?-?-?-?-?-?-?-?- JV- CRL is consi stent with LMP. She declines NIPT. wants to do anatomy scan in [place]. 11/02/24 -?-?-?-?-?-?-?-?-?-?-?-?- 15w 2d 160 lb 2 oz 122/85 Nega tive -?-?-?-?-?-?-?-?-?-?-?-?- Negative 150 -?-?-?-?-?-?-?-?-?-?-?-?- SM- no vb cramarissai ng 12/02/24 -?-?-?-?-?-?-?-?-?-?-?-?- 19w 4d 160 lb 2 oz 118/70 Nega tive -?-?-?-?-?-?-?-?-?-?-?-?- Negative 146 -?-?-?-?-?-?-?-?-?-?-?-?- MH-No VB. Luis cano. Repeat MFM US 12/26. 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 UA neg for infection. Has not been drinking much fluid and encouraged. Good Fm. No VB, LOF. 01/23/25 -?-?-?-?-?-?-?-?-?-?-?-?- 27w 0d 161 lb 8 oz 107/75 Nega tive -?-?-?-?-?-?-?-?-?-?-?-?- Negative 140 27 -?-?-?-?-?-?-?-?-?-?-?-?- KW- no vb/lof/ct x. good fm. glucose today. LARC today. 02/06/25 -?-?-?-?-?-?-?-?-?-?-?-?- 29w 0d 162 lb 4 oz 112/75 Nega tive -?-?-?-?-?-?-?-?-?-?-?-?- Negative 135 29 -?-?-?-?-?-?-?-?--?-?-?-?- KW-no vb/lof/ctx . good fm. anemic-will start taking PNV and get HGB rechecked. 02/24/25 -?-?-?-?-?-?-?-?-?-?-?-?- 31w 4d 164 lb 126/79 Negative -?-?-?-?-?-?-?-?-?-?-?-?- Negative 135 32 -?-?-?-?-?-?-?-?-?-?-?-?- SM- no vb lof go od fm irreuglar ctx 03/08/25 -?-?-?-?-?-?-?-?-?-?-?-?- 33w 2d 162 lb 97/66 Trace -?-?-?-?-?-?-?-?-?-?-?-?- 100 g/dL 150 33 -?-?-?-?-?-?-?-?-?-?-?-?- JV- no lof, vagi nal bleeding, or dec fm. no complaints other than some air hunger of 03/20/25 -?-?-?-?-?-?-?-?-?-?-?-?- 35w 0d 162 lb 2 oz 98/64 Nega tive -?-?-?-?-?-?-?-?-?-?-?-?- Negative 141 34 -?-?-?-?-?-?-?-?-?-?-?-?- MH-No vB, LOF or CTX. Good FM. CBC today 03/30/25 -?-?-?-?-?-?-?-?-?-?-?-?- 36w 3d 165 lb 4 oz 100/68 Nega tive -?-?-?-?-?-?-?-?-?-?-?-?- Negative 135 36 Cephalic 2 .5 -?-?-?-?-?-?-?-?-?-?-?-?- 70 -2 KW- No vb/ lof/ctx. good fm GBS today. labor precautions 04/03/25 -?-?-?-?-?-?-?-?-?-?-?-?- 37w 0d 165 lb 2 oz 116/74 Nega tive -?-?-?-?-?-?-?-?-?-?-?-?- Negative 140 36 -?-?-?-?-?-?-?-?-?-?-?-?- KW- no vb/lof/ct x. good fm. GBS neg. declines vaginal exam ACOG First Trimester First Trimester: Discussed Second Trimester Second Trimester: Signs and Symptoms of Labor, Selecting a care provider, Reproductive Life Planning & Contreception and Intimate Partner Violence Third Trimester Third Trimester: Pain Management Plans, Labor support person(s), Immediate Larc, Signs and Symptoms of Preeclampsia, [place] Education, Family Medical Leave or Disability Forms and Intimate Partner Violence; Discussed Tobacco Cessation and Discussed Depression ROS Const Reports system reviewed and no additional complaints, except as documented Eyes Reports system reviewed and no additional complaints, except as documented ENT Reports system reviewed and no additional complaints, except as documented Card Reports system reviewed and no additional complaints, except as documented Resp Reports system reviewed and no additional complaints, except as documented GI Reports system reviewed and no additional complaints, except as documented, Denies nausea and Denies vomiting Reports system reviewed and no additional complaints, except as documented Musc Reports system reviewed and no additional complaints, except as documented Skin/Breast Reports system reviewed and no additional complaints, except as documented Neuro Yes system reviewed and no additional complaints, except as documented Psych Reports system reviewed and no additional complaints, except as documented Endo Reports system reviewed and no additional complaints, except as documented James/Lymph Reports system reviewed and no additional complaints, except as documented Aller/Immun Reports system reviewed and no additional complaints, except as documented Exam Const General: cooperative, healthy appearing and no acute distress Orientation: alert, awake and oriented x3 Neck Neck: normal visual inspection and full ROM Resp Effort & Inspection: normal respiratory effort, able to speak in complete sentences and symmetric chest movement GI Inspection: normal to inspection Palpation: soft and other Other: gravid Skin General: no rashes or lesions noted Neuro General: patient alert, patient awake and patient oriented x3 Cognition: normal cognition Speech: speech normal Gait: normal gait Motor: muscle tone normal throughout Extrem General: normal to inspection and full ROM Psych Appearance: grossly normal Mental Status: mental status grossly normal Mood: congruent mood Affect: normal affect Speech and Movement: speech and movement normal Attitude: cooperative Thought Process: normal Thought Content: normal Judgment: judgment good Results POC Urinalysis 2 Dip (Clinic) Office Urine Glucose Negative Last Edit by Annita Espinosa on 04/03/25 10:26 Office Urine Protein Negative Last Edit by Annita Espinosa on 04/03/25 10:26 Coding Level of Care Code OB Routine Diagnoses Acute non-recurrent maxillary sinusitis J01.00 Chronicity: acute Recurrence: non-recurrent Anemia affecting in third trimester O99.013 Trimester: third trimester Urinary tract infection in mother during second trimester of O23.42 Trimester: second trimester Abnormal ultrasound O28.3 History of miscarriage, currently O09.299 37 weeks gestation of Z3A.37 Weeks of gestation: 37 weeks Supervision of high risk in third trimester O09.93 Trimester: third trimester Segmental and somatic dysfunction of sacral region M99.04 Segmental and somatic dysfunction of lumbar region M99.03 Segmental and somatic dysfunction of thoracic region M99.02 Segmental and somatic dysfunction of cervical region M99.01 Neck pain M54.2 Assessment and Plan Assessment and Plan (1) Maxillary sinusitis: Status: Acute Qualifiers: Chronicity: acute Recurrence: non-recurrent Qualified Code(s): J01.00 - Acute maxillary sinusitis, unspecified (2) Anemia affecting : Status: Acute Qualifiers: Trimester: third trimester Qualified Code(s): O99.013 - Anemia complicating , third trimester Comment: Was not taking PNV w/FE and started. cbc in 4 weeks: persists and FE added (3) UTI in : Status: Acute Qualifiers: Trimester: second trimester Qualified Code(s): O23.42 - Unspecified infection of urinary tract in , second trimester Comment: Dx [facility] urgent care. Needs rpt culture next visit/negative (4) Abnormal ultrasound: Status: Acute Comment: CVI (normal variant) noted. MFM will bring back in 1 month to monitor Appt 12/26:RESOLVED (5) History of miscarriage, currently : Status: Acute (6) : Status: Acute Qualifiers: Weeks of gestation: 37 weeks Qualified Code(s): Z3A.37 - 37 weeks gestation of Comment: GBS neg, declined NIPT & Carrier testing (7) Supervision of high-risk : Status: Acute Qualifiers: Trimester: third trimester Qualified Code(s): O09.93 - Supervision of high risk , unspecified, third trimester Comment: PRR, , JOE 04/24/25, girl JUDIE [place], Dave (8) Segmental and somatic dysfunction of sacral region: Status: Acute (9) Segmental and somatic dysfunction of lumbar region: Status: Acute (10) Segmental and somatic dysfunction of thoracic region: Status: Acute (11) Segmental and somatic dysfunction of cervical region: Status: Acute (12) Neck pain: Status: Acute Orders: Orders POC Urinalysis 2 Dip (Clinic) Today Plan Details Additional Comments: ACOG trimester education reviewed and updated. see problem list details for updated plan management information and see below for orders placed at this visit. GA appropriate handout given. Goals & Barriers: Goals Decrease pain Improve ROM Decrease inflammation Barriers Poor posture at work/baby 04/03/25 1033 <Electronically signed by Corina norman CNM> Date _ Corina Daniel CNM Cosigner Signature: Date (if applicable) CC: ~ [facility] Work Phone: Progress note Author Crissy Rodas [facility] Note Date/Time April 17, 2025 10 :10am [facility] [address], [address] [place] [address] OFFICE VISIT Date of Service: 04/17/25 MR#: [id number] Acct: [id number] Name: EDEL GALLOWAY Rep #: [id number] : 1995 Provider: Dr. Delfino Rodas MD Age/Sex: 30/F Location: [facility] Status: Signed Intake Vital Signs 02/06/25 11:11 04/13/25 10:04 04/17/25 09:43 04/17/25 09:45 Height 5 ft 4 in 5 ft 4 in 5 ft 4 in 5 ft 4 in Weight: 167 lb 1 oz BMI 28.6 BP 125/84 H Intake Visit Reasons: 39wk ob Biometrics Technician Required: No Is patient in pain?: No Allergies No Known Allergies Allergy (Verified 04/17/25 09:42) Medications ?Medication ?Instructions ?Recorded ?Confirmed ?Type multivitamin no.47-iron fum 27 cap PO 09/27/24 5 History mg-folate no.1 1 mg-dha 300 mg capsule (PNV-DHA) ondansetron 4 mg disintegrating 4 mg PO Q6H PRN nausea and 11/18/24 04/17/25 Rx tablet vomiting #30 tabs loratadine 10 mg tablet (Claritin) 10 mg PO QDAY 12/2804/17/25 History Last Menstrual Period: 07/18/24 Zika: Zika virus screening: Negative : No PFSH PFSH Medical History Conjunctivitis, right eye Hx of abnormal cervical Pap smear Complete Spotting Heartburn Non-smoker Cholelithiases Frequent headaches Surgical History History of laparoscopic cholecystectomy (~03/2022) Hx of wisdom tooth extraction Family History Mother Diabetes Hypertension Grandmother Heart disease Social History adopted: No household members: spouse and children number of children: 1 current occupational status: employed 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: Yes (bloodborne pathogens) pets and animals: Yes pets and animals: dog(s) history of recent travel: No ([place], [place]) sexually active: Yes Smoking Status: Never smoker alcohol intake: current alcohol intake frequency: a few times a month Alcohol type: beer and wine details: not while substance use type: does not use well-balanced diet: daily or most days caffeine: No eating out: 1-3 times/week during the past year weight has: increased > 10 lbs what type of physical activity do you participate in: walking frequency: 1-2 times per week duration: 15-30 minutes/day maynor/episcopal: None seatbelt use: always do you feel safe at home: Yes additional social history: - Dave History 3 Elective abortions Hx Para 1 Spontaneous abortions 1 Hx # Term Pregnancies Ectopic pregnancies Hx # Pregnancies Multiple births # of living children 1 Past Pregnancies Del. Date Name GA/Weeks Outcome Route Bth Weight Gen Labor Lgth Anesthesia Del Locatn Provider FOB 11/20/22 miscarriage @5-6 wks 09/24/23 Delainey 40 live - full term 7#9oz Female ep idural [facility] Dr. Adrianna Acosta Delivery Date: 09/24/23 Last Updated by: Macrina Schwab COVID, vanishing twin, 2nd degree laceration HPI 39wk ob Details: EDEL GALLOWAY is a 30 year old who presents for routine OB visit. OB Visit JOE Calculator Estimated Delivery Date Method Current WG Current Estimate 04/24/25 LMP (Certain) 39w 0d Other Estimates 04/25/25 Ultrasound #1 38w 6d Expected Delivery Route/Plan Labor Preferences- CB/BF classes: no labor support person: Dave labor intervention preferences: [] pain management options preferred: epidural cut cord/dad catch: YES : yes PP control planned: discussed possible routes of delivery and associated risks: [] special requests: [] Specific Issue/Plans Covid status: [] Flu vaccine: [] Tdap vaccine: given Rhogam: NA LARC form signed: yes Problem list reviewed and updated with the most current plan of care details and appropriate orders placed. Relevant counseling for the gestational age provided. Continue routine care and follow up unless otherwise noted in visit notes/problem list details Initial Weight: Not Recorded Date -?-?-?-?-?-?-?-?-?-?-?-?- EGA Weight BP Urine Prot -?-?-?-?-?-?-?-?-?-?-?-?- Glucose FHR FuHt Pres Dilation -?-?-?-?-?--?-?-?-?-?-?-?- Effaced St Visit Note 10/05/24 -?-?-?-?-?-?-?-?-?-?-?-?- 11w 2d 164 lb 120/75 -?-?-?-?-?-?-?-?-?-?-?-?- 169 -?-?-?-?-?-?-?-?-?-?-?-?- JV- CRL is consi stent with LMP. She declines NIPT. wants to do anatomy scan in [place]. 11/02/24 -?-?-?-?-?-?-?-?-?-?-?-?- 15w 2d 160 lb 2 oz 122/85 Nega tive -?-?-?-?-?-?-?-?-?-?-?-?- Negative 150 -?-?-?-?-?-?-?-?-?-?-?-?- - no vb crampi 12/02/24 -?-?-?-?-?-?-?-?-?-?-?-?- 19w 4d 160 lb 2 oz 118/70 Nega tive -?-?-?-?-?-?-?-?-?-?-?-?- Negative 146 -?-?-?-?-?-?-?-?-?-?-?-?- -No VB. Luis cano. Repeat MFM US 12/26. 12/28/24 -?-?-?-?-?-?-?-?-?-?-?-?- 23w 2d 159 lb 2 oz 110/74 Nega tive -?-?-?-?-?--?-?-?-?-?-?-?- Negative 143 23 -?-?-?-?-?-?-?-?-?-?-?-?- -work in for renee mcq. UA neg for infection. Has not been drinking much fluid and encouraged. Good Fm. No VB, LOF. 01/23/25 -?-?-?-?-?-?-?-?-?-?-?-?- 27w 0d 161 lb 8 oz 107/75 Nega tive -?-?-?-?-?-?-?-?-?-?-?-?- Negative 140 27 -?-?-?-?-?-?-?-?-?-?-?-?- KW- no vb/lof/ct x. good fm. glucose today. LARC today. 02/06/25 -?-?-?-?-?-?-?-?-?-?-?-?- 29w 0d 162 lb 4 oz 112/75 Nega tive -?-?-?-?-?-?-?-?-?-?-?-?- Negative 135 29 -?-?-?-?-?-?-?-?-?-?-?-?- KW-no vb/lof/ctx . good fm. anemic-will start taking PNV and get HGB rechecked. 02/24/25 -?-?-?-?-?-?-?-?-?-?-?-?- 31w 4d 164 lb 126/79 Negative -?-?-?-?-?-?-?-?-?-?-?-?- Negative 135 32 -?-?-?-?-?-?-?-?-?-?-?-?- SM- no vb lof go od fm irreuglar ctx 03/08/25 -?-?-?-?-?-?-?-?-?-?-?-?- 33w 2d 162 lb 97/66 Trace -?-?-?-?-?-?-?-?-?-?-?-?- 100 g/dL 150 33 -?-?-?--?-?-?-?-?-?-?-?-?- JV- no lof, vagi nal bleeding, or dec fm. no complaints other than some air hunger of 03/20/25 -?-?-?-?-?-?-?-?-?-?-?-?- 35w 0d 162 lb 2 oz 98/64 Nega tive -?-?-?-?-?-?-?-?-?-?-?-?- Negative 141 34 -?-?-?-?-?-?-?-?-?-?-?-?- MH-No vB, LOF or CTX. Good FM. CBC today 03/30/25 -?-?-?-?-?-?-?-?-?-?-?-?- 36w 3d 165 lb 4 oz 100/68 Nega tive -?-?-?-?-?-?-?-?-?-?-?-?- Negative 135 36 Cephalic 2 .5 -?-?-?-?-?-?-?-?-?-?-?-?- 70 -2 KW- No vb/ lof/ctx. good fm GBS today. labor precautions 04/03/25 -?-?-?-?-?-?-?-?-?-?-?-?- 37w 0d 165 lb 2 oz 116/74 Nega tive -?-?-?-?-?-?-?-?-?-?-?-?- Negative 140 36 -?-?-?-?-?-?-?-?-?-?-?-?- KW- no vb/lof/ct x. good fm. GBS neg. declines vaginal exam 04/13/25 -?-?-?-?-?-?-?-?-?-?-?-?- 38w 3d 170 lb 5 oz 116/83 Nega tive -?-?-?-?-?-?-?-?-?-?-?-?- Negative 120 37.5 -?-?-?-?-?-?-?-?-?-?-?-?- JV- patient libby trent declines pelvic exam. She does report a decrease movement over the last couple of days. no loss of fluid or vaginal bleeding. cramping is mild. 04/17/25 -?-?-?-?-?-?-?-?-?-?-?-?- 39w 0d 167 lb 1 oz 125/84 Nega tive -?-?-?-?-?-?-?-?-?-?-?-?- Negative 140 38 Cephalic 2 .5 -?-?-?-?-?-?-?-?-?-?-?-?- 70 -2 SM- no vb lof good fm no reuglar ctx discussed IOL by 40-41 weeks, membrane sweep next week. ACOG First Trimester First Trimester: Discussed Second Trimester Second Trimester: Signs and Symptoms of Labor, Selecting a care provider, Reproductive Life Planning & Contreception and Intimate Partner Violence Third Trimester Third Trimester: Pain Management Plans, Labor support person(s), Immediate Larc, Signs and Symptoms of Preeclampsia, [place] Education, Family Medical Leave or Disability Forms and Intimate Partner Violence; Discussed Tobacco Cessation and Discussed Depression Results POC Urinalysis 2 Dip (Clinic) Office Urine Glucose Negative Last Edit by Ida Bosch on 04/17/25 09:46 Office Urine Protein Negative Last Edit by Ida Bosch on 04/17/25 09:46 Coding Level of Care Code OB Routine Diagnoses Anemia affecting in third trimester O99.013 Trimester: third trimester Urinary tract infection in mother during second trimester of O23.42 Trimester: second trimester Abnormal ultrasound O28.3 History of miscarriage, currently O09.299 Supervision of high risk in third trimester O09.93 Trimester: third trimester 39 weeks gestation of Z3A.39 Weeks of gestation: 39 weeks Segmental and somatic dysfunction of sacral region M99.04 Segmental and somatic dysfunction of lumbar region M99.03 Segmental and somatic dysfunction of thoracic region M99.02 Segmental and somatic dysfunction of cervical region M99.01 Neck pain M54.2 Assessment and Plan Assessment and Plan (1) Anemia affecting : Status: Acute Qualifiers: Trimester: third trimester Qualified Code(s): O99.013 - Anemia complicating , third trimester Comment: Was not taking PNV w/FE and started. cbc in 4 weeks: persists and FE added (2) UTI in : Status: Acute Qualifiers: Trimester: second trimester Qualified Code(s): O23.42 - Unspecified infection of urinary tract in , second trimester Comment: Dx [facility] urgent care. Needs rpt culture next visit/negative (3) Abnormal ultrasound: Status: Resolved Comment: CVI (normal variant) noted. MFM will bring back in 1 month to monitor Appt 12/26:RESOLVED (4) History of miscarriage, currently : Status: Acute (5) Supervision of high-risk : Status: Acute Qualifiers: Trimester: third trimester Qualified Code(s): O09.93 - Supervision of high risk , unspecified, third trimester Comment: PRR, , JOE 04/24/25, girl JUDIE [place], Dave (6) : Status: Acute Qualifiers: Weeks of gestation: 39 weeks Qualified Code(s): Z3A.39 - 39 weeks gestation of Comment: GBS neg, declined NIPT & Carrier testing (7) Segmental and somatic dysfunction of sacral region: Status: Acute (8) Segmental and somatic dysfunction of lumbar region: Status: Acute (9) Segmental and somatic dysfunction of thoracic region: Status: Acute (10) Segmental and somatic dysfunction of cervical region: Status: Acute (11) Neck pain: Status: Acute Orders: Orders POC Urinalysis 2 Dip (Clinic) Today Plan Details Goals & Barriers: Goals Decrease pain Improve ROM Decrease inflammation Barriers Poor posture at work/baby 04/17/25 1010 <Electronically signed by Crissy henriquez MD> Date _ Crissy Rodas MD Cosign Signature: Date (if applicable) CC: ~ [facility] Work Phone: Reason for referral (narrative)No reason for referral information availableWC[facility] Work Phone: Summary Purpose Family History No Family History Records Found Relationship Condition Age at Onset Recorded Date/T rick mother Diabetes mellitus Unknown Hypertension Unknown grandmother Cardiac disease Unknown Advance Directives No Advanced Directives Records Found Advance Directive Response Recorded Date/ Time Living Will No March 24, 2022 4:55am Power of Patient Admitting Representative No March 24 4:55am Advance Directive Response Recorded Date/ Time Living Will No March 31, 2022 8:15am Power of Patient Admitting Representative No March 31 8:15am Advance Directive Response Recorded Date/ Time Living Will No March 16, 2023 3:58pm Power of Patient Admitting Representative No March 16 3:58pm Advance Directive Response Recorded Date/ Time Living Will No April 13, 2023 2:15pm Power of Patient Admitting Representative No April 13 2:15pm Advance Directive Response Recorded Date/ Time Living Will No April 13, 2023 1:15pm Power of Patient Admitting Representative No April 13 1:15pm Advance Directive Response Recorded Date/ Time Living Will No September 24 12:10pm Power of Patient Admitting Representative No September 24, 2023 12:10pm Advance Directive Response Recorded Date/ Time Living Will No November 18, 2024 8:33pm Power of Patient Admitting Representative No November 18 8:33pm Advance Directive Response Recorded Date/ Time Living Will No November 18, 2024 8:33pm Do you have a Healthcare Power of Patient Admitting Representative? No November 18, 2024 8:33pm Chief Complaint and Reason for Visit Chief Complaint LBP - REEVAL BACK PAIN LBP Reason for Visit Back pain Segmental and somatic dysfunction of lumbar region Segmental and somatic dysfunction of pelvic region Segmental and somatic dysfunction of thoracic region Back pain Segmental and somatic dysfunction of lumbar region Segmental and somatic dysfunction of pelvic region Segmental and somatic dysfunction of thoracic region Chief Complaint LBP - REEVAL BACK PAIN LBP abdominal pain Reason for Visit Back pain Segmental and somatic dysfunction of lumbar region Segmental and somatic dysfunction of pelvic region Segmental and somatic dysfunction of thoracic region Back pain Segmental and somatic dysfunction of lumbar region Segmental and somatic dysfunction of pelvic region Segmental and somatic dysfunction of thoracic region Chief Complaint LBP - REEVAL BACK PAIN LBP abdominal pain GALLSTONES LAP ONOFRE GRAMS LAP ONOFRE GRAMS Reason for Visit Back pain Segmental and somatic dysfunction of lumbar region Segmental and somatic dysfunction of pelvic region Segmental and somatic dysfunction of thoracic region Back pain Segmental and somatic dysfunction of lumbar region Segmental and somatic dysfunction of pelvic region Segmental and somatic dysfunction of thoracic region Cholelithiases Chief Complaint Back pain Back pain Reason for Visit Back pain Segmental and somatic dysfunction of lumbar region Segmental and somatic dysfunction of pelvic region Segmental and somatic dysfunction of thoracic region Back pain Segmental and somatic dysfunction of cervical region Segmental and somatic dysfunction of lumbar region Segmental and somatic dysfunction of pelvic region Segmental and somatic dysfunction of thoracic region Chief Complaint SAB EORDERS NOB LMP: 413 ADJUSTMENT Reason for Visit Hx of one miscarriag e Supervision of high-risk Back pain Segmental and somatic dysfunction of cervical region Segmental and somatic dysfunction of lumbar region Segmental and somatic dysfunction of sacral region Segmental and somatic dysfunction of thoracic region Chief Complaint SAB EORDERS NOB LMP: 12/18 ADJUSTMENT ADJUSTMENT 13 WK OB Reason for Visit Hx of one miscarriag e Supervision of high-risk Back pain Segmental and somatic dysfunction of cervical region Segmental and somatic dysfunction of lumbar region Segmental and somatic dysfunction of sacral region Segmental and somatic dysfunction of thoracic region Back pain Segmental and somatic dysfunction of cervical region Segmental and somatic dysfunction of lumbar region Segmental and somatic dysfunction of sacral region Segmental and somatic dysfunction of thoracic region Back pain Cervicogenic headache Hx of one miscarriage Segmental and somatic dysfunction of cervical region Segmental and somatic dysfunction of lumbar region Segmental and somatic dysfunction of pelvic region Segmental and somatic dysfunction of sacral region Segmental and somatic dysfunction of thoracic region Sinusitis Supervision of high-risk URI (upper respiratory infection) Vanishing twin syndrome Chief Complaint EORDERS NOB LMP: 12/18 ADJUSTMENT ADJUSTMENT 13 WK OB ADJUSTMENT 17 WK OB Adjustment 21 WK OB Reason for Visit Hx of one miscarriag e Supervision of high-risk Segmental and somatic dysfunction of cervical region Segmental and somatic dysfunction of lumbar region Segmental and somatic dysfunction of sacral region Segmental and somatic dysfunction of thoracic region Segmental and somatic dysfunction of cervical region Segmental and somatic dysfunction of lumbar region Segmental and somatic dysfunction of sacral region Segmental and somatic dysfunction of thoracic region Cervicogenic headache Hx of one miscarriage Segmental and somatic dysfunction of cervical region Segmental and somatic dysfunction of lumbar region Segmental and somatic dysfunction of pelvic region Segmental and somatic dysfunction of sacral region Segmental and somatic dysfunction of thoracic region 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 Segmental and somatic dysfunction of cervical region Segmental and somatic dysfunction of lumbar region Segmental and somatic dysfunction of sacral region Segmental and somatic dysfunction of thoracic region Hx of one miscarriage 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 Segmental and somatic dysfunction of cervical region Segmental and somatic dysfunction of lumbar region Segmental and somatic dysfunction of sacral region Segmental and somatic dysfunction of thoracic region Choroid plexus cyst of fetus Hx of one miscarriage 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 Chief Complaint ADJUSTMENT 13 WK OB ADJUSTMENT 17 WK OB Adjustment 21 WK OB adjustment 25 WK OB ADJUSTMENT EORDER 29 WK OB Reason for Visit Back pain Segmental and somatic dysfunction of cervical region Segmental and somatic dysfunction of lumbar region Segmental and somatic dysfunction of sacral region Segmental and somatic dysfunction of thoracic region Back pain Cervicogenic headache Hx of one miscarriage Segmental and somatic dysfunction of cervical region Segmental and somatic dysfunction of lumbar region Segmental and somatic dysfunction of pelvic region Segmental and somatic dysfunction of sacral region Segmental and somatic dysfunction of thoracic region 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 Back pain Segmental and somatic dysfunction of cervical region Segmental and somatic dysfunction of lumbar region Segmental and somatic dysfunction of sacral region Segmental and somatic dysfunction of thoracic region Hx of one miscarriage 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 Back pain Segmental and somatic dysfunction of cervical region Segmental and somatic dysfunction of lumbar region Segmental and somatic dysfunction of sacral region Segmental and somatic dysfunction of thoracic region Choroid plexus cyst of fetus Hx of one miscarriage 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 Back pain Segmental and somatic dysfunction of cervical region Segmental and somatic dysfunction of lumbar region Segmental and somatic dysfunction of sacral region Segmental and somatic dysfunction of thoracic region Cervicogenic headache Choroid plexus cyst of fetus Hx of one miscarriage Segmental and somatic dysfunction of cervical region Segmental and somatic dysfunction of lumbar region Segmental and somatic dysfunction of pelvic region Segmental and somatic dysfunction of sacral region Segmental and somatic dysfunction of thoracic region 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 Back pain Segmental and somatic dysfunction of cervical region Segmental and somatic dysfunction of lumbar region Segmental and somatic dysfunction of sacral region Segmental and somatic dysfunction of thoracic region Back pain Cervicogenic headache Choroid plexus cyst of fetus Hx of one miscarriage Need to void immediately after urinating Segmental and somatic dysfunction of cervical region Segmental and somatic dysfunction of lumbar region Segmental and somatic dysfunction of pelvic region Segmental and somatic dysfunction of sacral region Segmental and somatic dysfunction of thoracic region 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 Chief Complaint ADJUSTMENT 17 WK OB Adjustment 21 WK OB adjustment 25 WK OB ADJUSTMENT EORDER 29 WK OB PREGNACY ADJUSTMENT RIGHT EYE IRRITATION 31 WK OB Reason for Visit Back pain Segmental and somatic dysfunction of cervical region Segmental and somatic dysfunction of lumbar region Segmental and somatic dysfunction of sacral region Segmental and somatic dysfunction of thoracic region Hx of one miscarriage 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 Back pain Segmental and somatic dysfunction of cervical region Segmental and somatic dysfunction of lumbar region Segmental and somatic dysfunction of sacral region Segmental and somatic dysfunction of thoracic region Choroid plexus cyst of fetus Hx of one miscarriage 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 Back pain Segmental and somatic dysfunction of cervical region Segmental and somatic dysfunction of lumbar region Segmental and somatic dysfunction of sacral region Segmental and somatic dysfunction of thoracic region Cervicogenic headache Choroid plexus cyst of fetus Hx of one miscarriage Segmental and somatic dysfunction of cervical region Segmental and somatic dysfunction of lumbar region Segmental and somatic dysfunction of pelvic region Segmental and somatic dysfunction of sacral region Segmental and somatic dysfunction of thoracic region 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 Back pain Segmental and somatic dysfunction of cervical region Segmental and somatic dysfunction of lumbar region Segmental and somatic dysfunction of sacral region Segmental and somatic dysfunction of thoracic region Back pain Cervicogenic headache Choroid plexus cyst of fetus Hx of one miscarriage Need to void immediately after urinating Segmental and somatic dysfunction of cervical region Segmental and somatic dysfunction of lumbar region Segmental and somatic dysfunction of pelvic region Segmental and somatic dysfunction of sacral region Segmental and somatic dysfunction of thoracic region 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 Back pain Segmental and somatic dysfunction of cervical region Segmental and somatic dysfunction of lumbar region Segmental and somatic dysfunction of sacral region Segmental and somatic dysfunction of thoracic region Conjunctivitis, right eye Abnormal glucose tolerance affecting , antepartum Back pain Cervicogenic headache Choroid plexus cyst of fetus Conjunctivitis, right eye Hx of one miscarriage Need to void immediately after urinating Segmental and somatic dysfunction of cervical region Segmental and somatic dysfunction of lumbar region Segmental and somatic dysfunction of pelvic region Segmental and somatic dysfunction of sacral region Segmental and somatic dysfunction of thoracic region 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 Chief Complaint Adjustment 21 WK OB adjustment 25 WK OB ADJUSTMENT EORDER 29 WK OB PREGNACY ADJUSTMENT RIGHT EYE IRRITATION 31 WK OB recent COVID-19 36 WK OB 37 WK OB Reason for Visit Back pain Segmental and somatic dysfunction of cervical region Segmental and somatic dysfunction of lumbar region Segmental and somatic dysfunction of sacral region Segmental and somatic dysfunction of thoracic region Choroid plexus cyst of fetus Hx of one miscarriage 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 Back pain Segmental and somatic dysfunction of cervical region Segmental and somatic dysfunction of lumbar region Segmental and somatic dysfunction of sacral region Segmental and somatic dysfunction of thoracic region Cervicogenic headache Choroid plexus cyst of fetus Hx of one miscarriage Segmental and somatic dysfunction of cervical region Segmental and somatic dysfunction of lumbar region Segmental and somatic dysfunction of pelvic region Segmental and somatic dysfunction of sacral region Segmental and somatic dysfunction of thoracic region 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 Back pain Segmental and somatic dysfunction of cervical region Segmental and somatic dysfunction of lumbar region Segmental and somatic dysfunction of sacral region Segmental and somatic dysfunction of thoracic region Back pain Cervicogenic headache Choroid plexus cyst of fetus Hx of one miscarriage Segmental and somatic dysfunction of cervical region Segmental and somatic dysfunction of lumbar region Segmental and somatic dysfunction of pelvic region Segmental and somatic dysfunction of sacral region Segmental and somatic dysfunction of thoracic region 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 Back pain Segmental and somatic dysfunction of cervical region Segmental and somatic dysfunction of lumbar region Segmental and somatic dysfunction of sacral region Segmental and somatic dysfunction of thoracic region Conjunctivitis, right eye Abnormal glucose tolerance affecting , antepartum Back pain Cervicogenic headache Choroid plexus cyst of fetus Hx of one miscarriage Segmental and somatic dysfunction of cervical region Segmental and somatic dysfunction of lumbar region Segmental and somatic dysfunction of pelvic region Segmental and somatic dysfunction of sacral region Segmental and somatic dysfunction of thoracic region 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 Conjunctivitis, right eye Choroid plexus cyst of fetus COVID-19 affecting in third trimester Hx of one miscarriage 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 Abnormal glucose tolerance affecting , antepartum Back pain Cervicogenic headache Choroid plexus cyst of fetus COVID-19 affecting in third trimester Hx of one miscarriage Segmental and somatic dysfunction of cervical region Segmental and somatic dysfunction of lumbar region Segmental and somatic dysfunction of pelvic region Segmental and somatic dysfunction of sacral region Segmental and somatic dysfunction of thoracic region 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 Abnormal glucose tolerance affecting , antepartum Choroid plexus cyst of fetus COVID-19 affecting in third trimester Hx of one miscarriage 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 Chief Complaint adjustment 25 WK OB ADJUSTMENT EORDER 29 WK OB PREGNACY ADJUSTMENT RIGHT EYE IRRITATION 31 WK OB recent COVID-19 36 WK OB 37 WK OB ADJUSTMENT 38 WK OB 39 WK OB 40 WK OB, running 10 mins behind VAGINAL DELIVERY INDUCTION VAGINAL DELIVERY VAGINAL DELIVERY Reason for Visit Back pain Segmental and somatic dysfunction of cervical region Segmental and somatic dysfunction of lumbar region Segmental and somatic dysfunction of sacral region Segmental and somatic dysfunction of thoracic region Cervicogenic headache Choroid plexus cyst of fetus Hx of one miscarriage Segmental and somatic dysfunction of cervical region Segmental and somatic dysfunction of lumbar region Segmental and somatic dysfunction of pelvic region Segmental and somatic dysfunction of sacral region Segmental and somatic dysfunction of thoracic region 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 Back pain Segmental and somatic dysfunction of cervical region Segmental and somatic dysfunction of lumbar region Segmental and somatic dysfunction of sacral region Segmental and somatic dysfunction of thoracic region Back pain Cervicogenic headache Choroid plexus cyst of fetus Hx of one miscarriage Segmental and somatic dysfunction of cervical region Segmental and somatic dysfunction of lumbar region Segmental and somatic dysfunction of pelvic region Segmental and somatic dysfunction of sacral region Segmental and somatic dysfunction of thoracic region 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 Back pain Segmental and somatic dysfunction of cervical region Segmental and somatic dysfunction of lumbar region Segmental and somatic dysfunction of sacral region Segmental and somatic dysfunction of thoracic region Conjunctivitis, right eye Abnormal glucose tolerance affecting , antepartum Back pain Cervicogenic headache Choroid plexus cyst of fetus Conjunctivitis, right eye Hx of one miscarriage Segmental and somatic dysfunction of cervical region Segmental and somatic dysfunction of lumbar region Segmental and somatic dysfunction of pelvic region Segmental and somatic dysfunction of sacral region Segmental and somatic dysfunction of thoracic region 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 Choroid plexus cyst of fetus COVID-19 affecting in third trimester Hx of one miscarriage 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 Abnormal glucose tolerance affecting , antepartum Back pain Cervicogenic headache Choroid plexus cyst of fetus COVID-19 affecting in third trimester Hx of one miscarriage Segmental and somatic dysfunction of cervical region Segmental and somatic dysfunction of lumbar region Segmental and somatic dysfunction of pelvic region Segmental and somatic dysfunction of sacral region Segmental and somatic dysfunction of thoracic region 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 Abnormal glucose tolerance affecting , antepartum Choroid plexus cyst of fetus COVID-19 affecting in third trimester Hx of one miscarriage 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 Back pain Segmental and somatic dysfunction of cervical region Segmental and somatic dysfunction of lumbar region Segmental and somatic dysfunction of sacral region Segmental and somatic dysfunction of thoracic region Abnormal glucose tolerance affecting , antepartum Back pain Cervicogenic headache Choroid plexus cyst of fetus COVID-19 affecting in third trimester Hx of one miscarriage Segmental and somatic dysfunction of cervical region Segmental and somatic dysfunction of lumbar region Segmental and somatic dysfunction of pelvic region Segmental and somatic dysfunction of sacral region Segmental and somatic dysfunction of thoracic region 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 Abnormal glucose tolerance affecting , antepartum Back pain Cervicogenic headache Choroid plexus cyst of fetus COVID-19 affecting in third trimester Hx of one miscarriage Segmental and somatic dysfunction of cervical region Segmental and somatic dysfunction of lumbar region Segmental and somatic dysfunction of pelvic region Segmental and somatic dysfunction of sacral region Segmental and somatic dysfunction of thoracic region 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 Abnormal glucose tolerance affecting , antepartum Back pain Choroid plexus cyst of fetus COVID-19 affecting in third trimester Hx of one miscarriage Segmental and somatic dysfunction of sacral region 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 Vaginal delivery Abnormal glucose tolerance affecting , antepartum Choroid plexus cyst of fetus COVID-19 affecting in third trimester Encounter for induction of labor 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 Chief Complaint Admit Date New OB, LMP 07/18, JOE 04/24 12:33pm EORDER October 13, 2024 4 :01pm 15 wk OB November 02, 2024 2:09pm N/V, COLD SX November 18, 2024 6:0 0pm Reason for Visit Admit Date History of miscarriage, currently pregna nt October 05, 2024 12:33pm October 05, 2024 1 2:33pm Supervision of high-risk Janua ry 2024 12:33pm History of miscarriage, currently pregna nt November 02, 2024 2:09pm Neck pain November 02, 2024 2:09pm November 02, 2024 2:09pm Segmental and somatic dysfunction of cer vical region November 02, 2024 2:09pm Segmental and somatic dysfunction of lum bar region November 02, 2024 2:09pm Segmental and somatic dysfunction of sac ral region November 02, 2024 2:09pm Segmental and somatic dysfunction of tho racic region November 02, 2024 2:09pm Supervision of high-risk Febru garo 2024 2:09pm Chief Complaint Admit Date New OB, LMP 07/18, JOE 04/24 12:33pm EORDER October 13, 2024 4 :01pm 15 wk OB November 02, 2024 2:09pm N/V, COLD SX November 18, 2024 6:0 0pm 19 wk ob December 02, 2024 9:5 3am 23 wk ob *POS UTI December 28, 2024 3:2 3pm 27wk ob/glucose January 23, 2025 9:58a m Reason for Visit Admit Date History of miscarriage, currently pregna nt October 05, 2024 12:33pm October 05, 2024 1 2:33pm Supervision of high-risk Lico ry 2024 12:33pm History of miscarriage, currently pregna nt November 02, 2024 2:09pm Neck pain November 02, 2024 2:09pm November 02, 2024 2:09pm Segmental and somatic dysfunction of cer vical region November 02, 2024 2:09pm Segmental and somatic dysfunction of lum bar region November 02, 2024 2:09pm Segmental and somatic dysfunction of sac ral region November 02, 2024 2:09pm Segmental and somatic dysfunction of tho racic region November 02, 2024 2:09pm Supervision of high-risk Febru garo 2024 2:09pm Abnormal ultrasound December 02 9:53am History of miscarriage, currently pregna nt December 02, 2024 9:53am December 02, 2024 9:5 3am Supervision of high-risk December 02, 2024 9:53am History of miscarriage, currently pregna nt December 28, 2024 3:23pm December 28, 2024 3:2 3pm Supervision of high-risk December 28, 2024 3:23pm UTI in December 28, 2024 3:2 3pm Abnormal ultrasound January 23, 2025 9:58am History of miscarriage, currently pregna nt January 23, 2025 9:58am Neck pain January 23, 2025 9:58a m January 23, 2025 9:58a m Segmental and somatic dysfunction of cer vical region January 23, 2025 9:58am Segmental and somatic dysfunction of lum bar region January 23, 2025 9:58am Segmental and somatic dysfunction of sac ral region January 23, 2025 9:58am Segmental and somatic dysfunction of tho racic region January 23, 2025 9:58am Supervision of high-risk January 052024 9:58am UTI in January 23, 2025 9:58a m Chief Complaint Admit Date EORDER October 13, 2024 4 :01pm 15 wk OB November 02, 2024 2:09pm N/V, COLD SX November 18, 2024 6:0 0pm 19 wk ob December 02, 2024 9:5 3am 23 wk ob *POS UTI December 28, 2024 3:2 3pm 27wk ob/glucose January 23, 2025 9:58a m 29 wk ob February 06, 2025 11:09 am Reason for Visit Admit Date History of miscarriage, currently pregna nt November 02, 2024 2:09pm Neck pain November 02, 2024 2:09pm November 02, 2024 2:09pm Segmental and somatic dysfunction of cer vical region November 02, 2024 2:09pm Segmental and somatic dysfunction of lum bar region November 02, 2024 2:09pm Segmental and somatic dysfunction of sac ral region November 02, 2024 2:09pm Segmental and somatic dysfunction of tho racic region November 02, 2024 2:09pm Supervision of high-risk Febru garo 2024 2:09pm Abnormal ultrasound December 02 9:53am History of miscarriage, currently pregna nt December 02, 2024 9:53am December 02, 2024 9:5 3am Supervision of high-risk December 02, 2024 9:53am History of miscarriage, currently pregna nt December 28, 2024 3:23pm December 28, 2024 3:2 3pm Supervision of high-risk December 28, 2024 3:23pm UTI in December 28, 2024 3:2 3pm Abnormal ultrasound January 23, 2025 9:58am History of miscarriage, currently pregna nt January 23, 2025 9:58am Neck pain January 23, 2025 9:58a m January 23, 2025 9:58a m Segmental and somatic dysfunction of cer vical region January 23, 2025 9:58am Segmental and somatic dysfunction of lum bar region January 23, 2025 9:58am Segmental and somatic dysfunction of sac ral region January 23, 2025 9:58am Segmental and somatic dysfunction of tho racic region January 23, 2025 9:58am Supervision of high-risk January 052024 9:58am UTI in January 23, 2025 9:58a m Abnormal ultrasound February 06, 2025 11:09am Anemia affecting February 06 11:09am History of miscarriage, currently pregna nt February 06, 2025 11:09am Neck pain February 06, 2025 11:09 am February 06, 2025 11:09 am Segmental and somatic dysfunction of cer vical region February 06, 2025 11:09am Segmental and somatic dysfunction of lum bar region February 06, 2025 11:09am Segmental and somatic dysfunction of sac ral region February 06, 2025 11:09am Segmental and somatic dysfunction of tho racic region February 06, 2025 11:09am Supervision of high-risk February 06, 2025 11:09am UTI in February 06, 2025 11:09 am Chief Complaint Admit Date 15 wk OB November 02, 2024 2:09pm N/V, COLD SX November 18, 2024 6:0 0pm 19 wk ob December 02, 2024 9:5 3am 23 wk ob *POS UTI December 28, 2024 3:2 3pm 27wk ob/glucose January 23, 2025 9:58a m 29 wk ob February 06, 2025 11:09 am 31wk ob February 24, 2025 11:0 5am Reason for Visit Admit Date History of miscarriage, currently pregna nt November 02, 2024 2:09pm Neck pain November 02, 2024 2:09pm November 02, 2024 2:09pm Segmental and somatic dysfunction of cer vical region November 02, 2024 2:09pm Segmental and somatic dysfunction of lum bar region November 02, 2024 2:09pm Segmental and somatic dysfunction of sac ral region November 02, 2024 2:09pm Segmental and somatic dysfunction of tho racic region November 02, 2024 2:09pm Supervision of high-risk Febru garo 2024 2:09pm Abnormal ultrasound December 02 9:53am History of miscarriage, currently pregna nt December 02, 2024 9:53am December 02, 2024 9:5 3am Supervision of high-risk December 02, 2024 9:53am History of miscarriage, currently pregna nt December 28, 2024 3:23pm December 28, 2024 3:2 3pm Supervision of high-risk December 28, 2024 3:23pm UTI in December 28, 2024 3:2 3pm Abnormal ultrasound January 23, 2025 9:58am History of miscarriage, currently pregna nt January 23, 2025 9:58am Neck pain January 23, 2025 9:58a m January 23, 2025 9:58a m Segmental and somatic dysfunction of cer vical region January 23, 2025 9:58am Segmental and somatic dysfunction of lum bar region January 23, 2025 9:58am Segmental and somatic dysfunction of sac ral region January 23, 2025 9:58am Segmental and somatic dysfunction of tho racic region January 23, 2025 9:58am Supervision of high-risk January 052024 9:58am UTI in January 23, 2025 9:58a m Abnormal ultrasound February 06, 2025 11:09am Anemia affecting February 06 11:09am History of miscarriage, currently pregna nt February 06, 2025 11:09am Neck pain February 06, 2025 11:09 am February 06, 2025 11:09 am Segmental and somatic dysfunction of cer vical region February 06, 2025 11:09am Segmental and somatic dysfunction of lum bar region February 06, 2025 11:09am Segmental and somatic dysfunction of sac ral region February 06, 2025 11:09am Segmental and somatic dysfunction of tho racic region February 06, 2025 11:09am Supervision of high-risk February 06, 2025 11:09am UTI in February 06, 2025 11:09 am Abnormal ultrasound February 24 11:05am Anemia affecting February 24 11:05am History of miscarriage, currently pregna nt February 24, 2025 11:05am Neck pain February 24, 2025 11:0 5am February 24, 2025 11:0 5am Segmental and somatic dysfunction of cer vical region February 24, 2025 11:05am Segmental and somatic dysfunction of lum bar region February 24, 2025 11:05am Segmental and somatic dysfunction of sac ral region February 24, 2025 11:05am Segmental and somatic dysfunction of tho racic region February 24, 2025 11:05am Supervision of high-risk February 24, 2025 11:05am UTI in February 24, 2025 11:0 5am Chief Complaint Admit Date N/V, COLD SX November 18, 2024 6:0 0pm 19 wk ob December 02, 2024 9:5 3am 23 wk ob *POS UTI December 28, 2024 3:2 3pm 27wk ob/glucose January 23, 2025 9:58a m 29 wk ob February 06, 2025 11:09 am 31wk ob February 24, 2025 11:0 5am 33wk ob March 08, 2025 10:02 am Reason for Visit Admit Date Abnormal ultrasound December 02 9:53am History of miscarriage, currently pregna nt December 02, 2024 9:53am December 02, 2024 9:5 3am Supervision of high-risk December 02, 2024 9:53am History of miscarriage, currently pregna nt December 28, 2024 3:23pm December 28, 2024 3:2 3pm Supervision of high-risk December 28, 2024 3:23pm UTI in December 28, 2024 3:2 3pm Abnormal ultrasound January 23, 2025 9:58am History of miscarriage, currently pregna nt January 23, 2025 9:58am Neck pain January 23, 2025 9:58a m January 23, 2025 9:58a m Segmental and somatic dysfunction of cer vical region January 23, 2025 9:58am Segmental and somatic dysfunction of lum bar region January 23, 2025 9:58am Segmental and somatic dysfunction of sac ral region January 23, 2025 9:58am Segmental and somatic dysfunction of tho racic region January 23, 2025 9:58am Supervision of high-risk January 052024 9:58am UTI in January 23, 2025 9:58a m Abnormal ultrasound February 06, 2025 11:09am Anemia affecting February 06 11:09am History of miscarriage, currently pregna nt February 06, 2025 11:09am Neck pain February 06, 2025 11:09 am February 06, 2025 11:09 am Segmental and somatic dysfunction of cer vical region February 06, 2025 11:09am Segmental and somatic dysfunction of lum bar region February 06, 2025 11:09am Segmental and somatic dysfunction of sac ral region February 06, 2025 11:09am Segmental and somatic dysfunction of tho racic region February 06, 2025 11:09am Supervision of high-risk February 06, 2025 11:09am UTI in February 06, 2025 11:09 am Abnormal ultrasound February 24 11:05am Anemia affecting February 24 11:05am History of miscarriage, currently pregna nt February 24, 2025 11:05am Neck pain February 24, 2025 11:0 5am February 24, 2025 11:0 5am Segmental and somatic dysfunction of cer vical region February 24, 2025 11:05am Segmental and somatic dysfunction of lum bar region February 24, 2025 11:05am Segmental and somatic dysfunction of sac ral region February 24, 2025 11:05am Segmental and somatic dysfunction of tho racic region February 24, 2025 11:05am Supervision of high-risk February 24, 2025 11:05am UTI in February 24, 2025 11:0 5am Abnormal ultrasound March 08, 2025 10:02am Anemia affecting March 08 10:02am History of miscarriage, currently pregna nt March 08, 2025 10:02am Neck pain March 08, 2025 10:02 am March 08, 2025 10:02 am Supervision of high-risk March 08, 2025 10:02am UTI in March 08, 2025 10:02 am Chief Complaint Admit Date 19 wk ob December 02, 2024 9:5 3am 23 wk ob *POS UTI December 28, 2024 3:2 3pm 27wk ob/glucose January 23, 2025 9:58a m 29 wk ob February 06, 2025 11:09 am 31wk ob February 24, 2025 11:0 5am 33wk ob March 08, 2025 10:02 am 35wk ob March 20, 2025 9:33 am Reason for Visit Admit Date Abnormal ultrasound December 02 9:53am History of miscarriage, currently pregna nt December 02, 2024 9:53am December 02, 2024 9:5 3am Supervision of high-risk December 02, 2024 9:53am History of miscarriage, currently pregna nt December 28, 2024 3:23pm December 28, 2024 3:2 3pm Supervision of high-risk December 28, 2024 3:23pm UTI in December 28, 2024 3:2 3pm Abnormal ultrasound January 23, 2025 9:58am History of miscarriage, currently pregna nt January 23, 2025 9:58am Neck pain January 23, 2025 9:58a m January 23, 2025 9:58a m Segmental and somatic dysfunction of cer vical region January 23, 2025 9:58am Segmental and somatic dysfunction of lum bar region January 23, 2025 9:58am Segmental and somatic dysfunction of sac ral region January 23, 2025 9:58am Segmental and somatic dysfunction of tho racic region January 23, 2025 9:58am Supervision of high-risk January 052024 9:58am UTI in January 23, 2025 9:58a m Abnormal ultrasound February 06, 2025 11:09am Anemia affecting February 06 11:09am History of miscarriage, currently pregna nt February 06, 2025 11:09am Neck pain February 06, 2025 11:09 am February 06, 2025 11:09 am Segmental and somatic dysfunction of cer vical region February 06, 2025 11:09am Segmental and somatic dysfunction of lum bar region February 06, 2025 11:09am Segmental and somatic dysfunction of sac ral region February 06, 2025 11:09am Segmental and somatic dysfunction of tho racic region February 06, 2025 11:09am Supervision of high-risk February 06, 2025 11:09am UTI in February 06, 2025 11:09 am Abnormal ultrasound February 24 11:05am Anemia affecting February 24 11:05am History of miscarriage, currently pregna nt February 24, 2025 11:05am Neck pain February 24, 2025 11:0 5am February 24, 2025 11:0 5am Segmental and somatic dysfunction of cer vical region February 24, 2025 11:05am Segmental and somatic dysfunction of lum bar region February 24, 2025 11:05am Segmental and somatic dysfunction of sac ral region February 24, 2025 11:05am Segmental and somatic dysfunction of tho racic region February 24, 2025 11:05am Supervision of high-risk February 24, 2025 11:05am UTI in February 24, 2025 11:0 5am Abnormal ultrasound March 08, 2025 10:02am Anemia affecting March 08 10:02am History of miscarriage, currently pregna nt March 08, 2025 10:02am Neck pain March 08, 2025 10:02 am March 08, 2025 10:02 am Supervision of high-risk March 08, 2025 10:02am UTI in March 08, 2025 10:02 am Abnormal ultrasound March 20 9:33am Anemia affecting March 20 9:33am History of miscarriage, currently pregna nt March 20, 2025 9:33am March 20, 2025 9:33 am Supervision of high-risk March 20, 2025 9:33am UTI in March 20, 2025 9:33 am Chief Complaint Admit Date 19 wk ob December 02, 2024 9:5 3am 23 wk ob *POS UTI December 28, 2024 3:2 3pm 27wk ob/glucose January 23, 2025 9:58a m 29 wk ob February 06, 2025 11:09 am 31wk ob February 24, 2025 11:0 5am 33wk ob March 08, 2025 10:02 am 35wk ob March 20, 2025 9:33 am CONGESTION March 26, 2025 8:48 am Reason for Visit Admit Date Abnormal ultrasound December 02 9:53am History of miscarriage, currently pregna nt December 02, 2024 9:53am December 02, 2024 9:5 3am Supervision of high-risk December 02, 2024 9:53am History of miscarriage, currently pregna nt December 28, 2024 3:23pm December 28, 2024 3:2 3pm Supervision of high-risk December 28, 2024 3:23pm UTI in December 28, 2024 3:2 3pm Abnormal ultrasound January 23, 2025 9:58am History of miscarriage, currently pregna nt January 23, 2025 9:58am Neck pain January 23, 2025 9:58a m January 23, 2025 9:58a m Segmental and somatic dysfunction of cer vical region January 23, 2025 9:58am Segmental and somatic dysfunction of lum bar region January 23, 2025 9:58am Segmental and somatic dysfunction of sac ral region January 23, 2025 9:58am Segmental and somatic dysfunction of tho racic region January 23, 2025 9:58am Supervision of high-risk January 052024 9:58am UTI in January 23, 2025 9:58a m Abnormal ultrasound February 06, 2025 11:09am Anemia affecting February 06 11:09am History of miscarriage, currently pregna nt February 06, 2025 11:09am Neck pain February 06, 2025 11:09 am February 06, 2025 11:09 am Segmental and somatic dysfunction of cer vical region February 06, 2025 11:09am Segmental and somatic dysfunction of lum bar region February 06, 2025 11:09am Segmental and somatic dysfunction of sac ral region February 06, 2025 11:09am Segmental and somatic dysfunction of tho racic region February 06, 2025 11:09am Supervision of high-risk February 06, 2025 11:09am UTI in February 06, 2025 11:09 am Abnormal ultrasound February 24 11:05am Anemia affecting February 24 11:05am History of miscarriage, currently pregna nt February 24, 2025 11:05am Neck pain February 24, 2025 11:0 5am February 24, 2025 11:0 5am Segmental and somatic dysfunction of cer vical region February 24, 2025 11:05am Segmental and somatic dysfunction of lum bar region February 24, 2025 11:05am Segmental and somatic dysfunction of sac ral region February 24, 2025 11:05am Segmental and somatic dysfunction of tho racic region February 24, 2025 11:05am Supervision of high-risk February 24, 2025 11:05am UTI in February 24, 2025 11:0 5am Abnormal ultrasound March 08, 2025 10:02am Anemia affecting March 08 10:02am History of miscarriage, currently pregna nt March 08, 2025 10:02am Neck pain March 08, 2025 10:02 am March 08, 2025 10:02 am Supervision of high-risk March 08, 2025 10:02am UTI in March 08, 2025 10:02 am Abnormal ultrasound March 20 9:33am Anemia affecting March 20 9:33am History of miscarriage, currently pregna nt March 20, 2025 9:33am March 20, 2025 9:33 am Supervision of high-risk March 20, 2025 9:33am UTI in March 20, 2025 9:33 am Maxillary sinusitis March 26, 2025 8:48 am Chief Complaint Admit Date 19 wk ob December 02, 2024 9:5 3am 23 wk ob *POS UTI December 28, 2024 3:2 3pm 27wk ob/glucose January 23, 2025 9:58a m 29 wk ob February 06, 2025 11:09 am 31wk ob February 24, 2025 11:0 5am 33wk ob March 08, 2025 10:02 am 35wk ob March 20, 2025 9:33 am CONGESTION March 26, 2025 8:48 am 36wk ob March 30, 2025 2:44 pm Reason for Visit Admit Date Abnormal ultrasound December 02 9:53am History of miscarriage, currently pregna nt December 02, 2024 9:53am December 02, 2024 9:5 3am Supervision of high-risk December 02, 2024 9:53am History of miscarriage, currently pregna nt December 28, 2024 3:23pm December 28, 2024 3:2 3pm Supervision of high-risk December 28, 2024 3:23pm UTI in December 28, 2024 3:2 3pm Abnormal ultrasound January 23, 2025 9:58am History of miscarriage, currently pregna nt January 23, 2025 9:58am Neck pain January 23, 2025 9:58a m January 23, 2025 9:58a m Segmental and somatic dysfunction of cer vical region January 23, 2025 9:58am Segmental and somatic dysfunction of lum bar region January 23, 2025 9:58am Segmental and somatic dysfunction of sac ral region January 23, 2025 9:58am Segmental and somatic dysfunction of tho racic region January 23, 2025 9:58am Supervision of high-risk January 052024 9:58am UTI in January 23, 2025 9:58a m Abnormal ultrasound February 06, 2025 11:09am Anemia affecting February 06 11:09am History of miscarriage, currently pregna nt February 06, 2025 11:09am Neck pain February 06, 2025 11:09 am February 06, 2025 11:09 am Segmental and somatic dysfunction of cer vical region February 06, 2025 11:09am Segmental and somatic dysfunction of lum bar region February 06, 2025 11:09am Segmental and somatic dysfunction of sac ral region February 06, 2025 11:09am Segmental and somatic dysfunction of tho racic region February 06, 2025 11:09am Supervision of high-risk February 06, 2025 11:09am UTI in February 06, 2025 11:09 am Abnormal ultrasound February 24 11:05am Anemia affecting February 24 11:05am History of miscarriage, currently pregna nt February 24, 2025 11:05am Neck pain February 24, 2025 11:0 5am February 24, 2025 11:0 5am Segmental and somatic dysfunction of cer vical region February 24, 2025 11:05am Segmental and somatic dysfunction of lum bar region February 24, 2025 11:05am Segmental and somatic dysfunction of sac ral region February 24, 2025 11:05am Segmental and somatic dysfunction of tho racic region February 24, 2025 11:05am Supervision of high-risk February 24, 2025 11:05am UTI in February 24, 2025 11:0 5am Abnormal ultrasound March 08, 2025 10:02am Anemia affecting March 08 10:02am History of miscarriage, currently pregna nt March 08, 2025 10:02am Neck pain March 08, 2025 10:02 am March 08, 2025 10:02 am Supervision of high-risk March 08, 2025 10:02am UTI in March 08, 2025 10:02 am Abnormal ultrasound March 20 9:33am Anemia affecting March 20 9:33am History of miscarriage, currently pregna nt March 20, 2025 9:33am March 20, 2025 9:33 am Supervision of high-risk March 20, 2025 9:33am UTI in March 20, 2025 9:33 am Maxillary sinusitis March 26, 2025 8:48 am Abnormal ultrasound March 30 2:44pm Anemia affecting March 30 2:44pm History of miscarriage, currently pregna nt March 30, 2025 2:44pm Maxillary sinusitis March 30, 2025 2:44 pm Neck pain March 30, 2025 2:44 pm March 30, 2025 2:44 pm Segmental and somatic dysfunction of cer vical region March 30, 2025 2:44pm Segmental and somatic dysfunction of lum bar region March 30, 2025 2:44pm Segmental and somatic dysfunction of sac ral region March 30, 2025 2:44pm Segmental and somatic dysfunction of tho racic region March 30, 2025 2:44pm Supervision of high-risk March 30, 2025 2:44pm UTI in March 30, 2025 2:44 pm Chief Complaint Admit Date 23 wk ob *POS UTI December 28, 2024 3:2 3pm 27wk ob/glucose January 23, 2025 9:58a m 29 wk ob February 06, 2025 11:09 am 31wk ob February 24, 2025 11:0 5am 33wk ob March 08, 2025 10:02 am 35wk ob March 20, 2025 9:33 am CONGESTION March 26, 2025 8:48 am 36wk ob March 30, 2025 2:44 pm 37wk ob April 03, 2025 10:1 7am Reason for Visit Admit Date History of miscarriage, currently pregna nt December 28, 2024 3:23pm December 28, 2024 3:2 3pm Supervision of high-risk December 28, 2024 3:23pm UTI in December 28, 2024 3:2 3pm Abnormal ultrasound January 23, 2025 9:58am History of miscarriage, currently pregna nt January 23, 2025 9:58am Neck pain January 23, 2025 9:58a m January 23, 2025 9:58a m Segmental and somatic dysfunction of cer vical region January 23, 2025 9:58am Segmental and somatic dysfunction of lum bar region January 23, 2025 9:58am Segmental and somatic dysfunction of sac ral region January 23, 2025 9:58am Segmental and somatic dysfunction of tho racic region January 23, 2025 9:58am Supervision of high-risk January 052024 9:58am UTI in January 23, 2025 9:58a m Abnormal ultrasound February 06, 2025 11:09am Anemia affecting February 06 11:09am History of miscarriage, currently pregna nt February 06, 2025 11:09am Neck pain February 06, 2025 11:09 am February 06, 2025 11:09 am Segmental and somatic dysfunction of cer vical region February 06, 2025 11:09am Segmental and somatic dysfunction of lum bar region February 06, 2025 11:09am Segmental and somatic dysfunction of sac ral region February 06, 2025 11:09am Segmental and somatic dysfunction of tho racic region February 06, 2025 11:09am Supervision of high-risk February 06, 2025 11:09am UTI in February 06, 2025 11:09 am Abnormal ultrasound February 24 11:05am Anemia affecting February 24 11:05am History of miscarriage, currently pregna nt February 24, 2025 11:05am Neck pain February 24, 2025 11:0 5am February 24, 2025 11:0 5am Segmental and somatic dysfunction of cer vical region February 24, 2025 11:05am Segmental and somatic dysfunction of lum bar region February 24, 2025 11:05am Segmental and somatic dysfunction of sac ral region February 24, 2025 11:05am Segmental and somatic dysfunction of tho racic region February 24, 2025 11:05am Supervision of high-risk February 24, 2025 11:05am UTI in February 24, 2025 11:0 5am Abnormal ultrasound March 08, 2025 10:02am Anemia affecting March 08 10:02am History of miscarriage, currently pregna nt March 08, 2025 10:02am Neck pain March 08, 2025 10:02 am March 08, 2025 10:02 am Supervision of high-risk March 08, 2025 10:02am UTI in March 08, 2025 10:02 am Abnormal ultrasound March 20 9:33am Anemia affecting March 20 9:33am History of miscarriage, currently pregna nt March 20, 2025 9:33am March 20, 2025 9:33 am Supervision of high-risk March 20, 2025 9:33am UTI in March 20, 2025 9:33 am Maxillary sinusitis March 26, 2025 8:48 am Abnormal ultrasound March 30 2:44pm Anemia affecting March 30 2:44pm History of miscarriage, currently pregna nt March 30, 2025 2:44pm Maxillary sinusitis March 30, 2025 2:44 pm Neck pain March 30, 2025 2:44 pm March 30, 2025 2:44 pm Segmental and somatic dysfunction of cer vical region March 30, 2025 2:44pm Segmental and somatic dysfunction of lum bar region March 30, 2025 2:44pm Segmental and somatic dysfunction of sac ral region March 30, 2025 2:44pm Segmental and somatic dysfunction of tho racic region March 30, 2025 2:44pm Supervision of high-risk March 30, 2025 2:44pm UTI in March 30, 2025 2:44 pm Abnormal ultrasound April 03 10:17am Anemia affecting April 03 10:17am History of miscarriage, currently pregna nt April 03, 2025 10:17am Maxillary sinusitis April 03, 2025 10:1 7am Neck pain April 03, 2025 10:1 7am April 03, 2025 10:1 7am Segmental and somatic dysfunction of cer vical region April 03, 2025 10:17am Segmental and somatic dysfunction of lum bar region April 03, 2025 10:17am Segmental and somatic dysfunction of sac ral region April 03, 2025 10:17am Segmental and somatic dysfunction of tho racic region April 03, 2025 10:17am Supervision of high-risk April 03, 2025 10:17am UTI in April 03, 2025 10:1 7am Chief Complaint Admit Date 23 wk ob *POS UTI December 28, 2024 3:2 3pm 27wk ob/glucose January 23, 2025 9:58a m 29 wk ob February 06, 2025 11:09 am 31wk ob February 24, 2025 11:0 5am 33wk ob March 08, 2025 10:02 am 35wk ob March 20, 2025 9:33 am CONGESTION March 26, 2025 8:48 am 36wk ob March 30, 2025 2:44 pm 37wk ob April 03, 2025 10:1 7am 38wk ob April 13, 2025 10: 02am Reason for Visit Admit Date History of miscarriage, currently pregna nt December 28, 2024 3:23pm December 28, 2024 3:2 3pm Supervision of high-risk December 28, 2024 3:23pm UTI in December 28, 2024 3:2 3pm Abnormal ultrasound January 23, 2025 9:58am History of miscarriage, currently pregna nt January 23, 2025 9:58am Neck pain January 23, 2025 9:58a m January 23, 2025 9:58a m Segmental and somatic dysfunction of cer vical region January 23, 2025 9:58am Segmental and somatic dysfunction of lum bar region January 23, 2025 9:58am Segmental and somatic dysfunction of sac ral region January 23, 2025 9:58am Segmental and somatic dysfunction of tho racic region January 23, 2025 9:58am Supervision of high-risk January 052024 9:58am UTI in January 23, 2025 9:58a m Abnormal ultrasound February 06, 2025 11:09am Anemia affecting February 06 11:09am History of miscarriage, currently pregna nt February 06, 2025 11:09am Neck pain February 06, 2025 11:09 am February 06, 2025 11:09 am Segmental and somatic dysfunction of cer vical region February 06, 2025 11:09am Segmental and somatic dysfunction of lum bar region February 06, 2025 11:09am Segmental and somatic dysfunction of sac ral region February 06, 2025 11:09am Segmental and somatic dysfunction of tho racic region February 06, 2025 11:09am Supervision of high-risk February 06, 2025 11:09am UTI in February 06, 2025 11:09 am Abnormal ultrasound February 24 11:05am Anemia affecting February 24 11:05am History of miscarriage, currently pregna nt February 24, 2025 11:05am Neck pain February 24, 2025 11:0 5am February 24, 2025 11:0 5am Segmental and somatic dysfunction of cer vical region February 24, 2025 11:05am Segmental and somatic dysfunction of lum bar region February 24, 2025 11:05am Segmental and somatic dysfunction of sac ral region February 24, 2025 11:05am Segmental and somatic dysfunction of tho racic region February 24, 2025 11:05am Supervision of high-risk February 24, 2025 11:05am UTI in February 24, 2025 11:0 5am Abnormal ultrasound March 08, 2025 10:02am Anemia affecting March 08 10:02am History of miscarriage, currently pregna nt March 08, 2025 10:02am Neck pain March 08, 2025 10:02 am March 08, 2025 10:02 am Supervision of high-risk March 08, 2025 10:02am UTI in March 08, 2025 10:02 am Abnormal ultrasound March 20 9:33am Anemia affecting March 20 9:33am History of miscarriage, currently pregna nt March 20, 2025 9:33am March 20, 2025 9:33 am Supervision of high-risk March 20, 2025 9:33am UTI in March 20, 2025 9:33 am Maxillary sinusitis March 26, 2025 8:48 am Abnormal ultrasound March 30 2:44pm Anemia affecting March 30 2:44pm History of miscarriage, currently pregna nt March 30, 2025 2:44pm Neck pain March 30, 2025 2:44 pm March 30, 2025 2:44 pm Segmental and somatic dysfunction of cer vical region March 30, 2025 2:44pm Segmental and somatic dysfunction of lum bar region March 30, 2025 2:44pm Segmental and somatic dysfunction of sac ral region March 30, 2025 2:44pm Segmental and somatic dysfunction of tho racic region March 30, 2025 2:44pm Supervision of high-risk March 30, 2025 2:44pm UTI in March 30, 2025 2:44 pm Maxillary sinusitis March 30, 2025 2:44 pm Abnormal ultrasound April 03 10:17am Anemia affecting April 03 10:17am History of miscarriage, currently pregna nt April 03, 2025 10:17am Neck pain April 03, 2025 10:1 7am April 03, 2025 10:1 7am Segmental and somatic dysfunction of cer vical region April 03, 2025 10:17am Segmental and somatic dysfunction of lum bar region April 03, 2025 10:17am Segmental and somatic dysfunction of sac ral region April 03, 2025 10:17am Segmental and somatic dysfunction of tho racic region April 03, 2025 10:17am Supervision of high-risk April 03, 2025 10:17am UTI in April 03, 2025 10:1 7am Maxillary sinusitis April 03, 2025 10:1 7am Abnormal ultrasound April 13 10:02am Anemia affecting April 13, 2 025 10:02am Decreased movement April 13 10:02am History of miscarriage, currently pregna nt April 13, 2025 10:02am April 13, 2025 10: 02am Supervision of high-risk Augus 2024 10:02am UTI in April 13, 2025 10: 02am Maxillary sinusitis April 13, 2025 10: 02am Chief Complaint Admit Date 23 wk ob *POS UTI December 28, 2024 3:2 3pm 27wk ob/glucose January 23, 2025 9:58a m 29 wk ob February 06, 2025 11:09 am 31wk ob February 24, 2025 11:0 5am 33wk ob March 08, 2025 10:02 am 35wk ob March 20, 2025 9:33 am CONGESTION March 26, 2025 8:48 am 36wk ob March 30, 2025 2:44 pm 37wk ob April 03, 2025 10:1 7am 38wk ob April 13, 2025 10: 02am 39wk ob April 17, 2025 9: 31am Reason for Visit Admit Date History of miscarriage, currently pregna nt December 28, 2024 3:23pm December 28, 2024 3:2 3pm Supervision of high-risk December 28, 2024 3:23pm UTI in December 28, 2024 3:2 3pm History of miscarriage, currently pregna nt January 23, 2025 9:58am Neck pain January 23, 2025 9:58a m January 23, 2025 9:58a m Segmental and somatic dysfunction of cer vical region January 23, 2025 9:58am Segmental and somatic dysfunction of lum bar region January 23, 2025 9:58am Segmental and somatic dysfunction of sac ral region January 23, 2025 9:58am Segmental and somatic dysfunction of tho racic region January 23, 2025 9:58am Supervision of high-risk January 052024 9:58am UTI in January 23, 2025 9:58a m Abnormal ultrasound January 23, 2025 9:58am Anemia affecting February 06 11:09am History of miscarriage, currently pregna nt February 06, 2025 11:09am Neck pain February 06, 2025 11:09 am February 06, 2025 11:09 am Segmental and somatic dysfunction of cer vical region February 06, 2025 11:09am Segmental and somatic dysfunction of lum bar region February 06, 2025 11:09am Segmental and somatic dysfunction of sac ral region February 06, 2025 11:09am Segmental and somatic dysfunction of tho racic region February 06, 2025 11:09am Supervision of high-risk February 06, 2025 11:09am UTI in February 06, 2025 11:09 am Abnormal ultrasound February 06, 2025 11:09am Anemia affecting February 24 11:05am History of miscarriage, currently pregna nt February 24, 2025 11:05am Neck pain February 24, 2025 11:0 5am February 24, 2025 11:0 5am Segmental and somatic dysfunction of cer vical region February 24, 2025 11:05am Segmental and somatic dysfunction of lum bar region February 24, 2025 11:05am Segmental and somatic dysfunction of sac ral region February 24, 2025 11:05am Segmental and somatic dysfunction of tho racic region February 24, 2025 11:05am Supervision of high-risk February 24, 2025 11:05am UTI in February 24, 2025 11:0 5am Abnormal ultrasound February 24 11:05am Anemia affecting March 08 10:02am History of miscarriage, currently pregna nt March 08, 2025 10:02am Neck pain March 08, 2025 10:02 am March 08, 2025 10:02 am Supervision of high-risk March 08, 2025 10:02am UTI in March 08, 2025 10:02 am Abnormal ultrasound March 08, 2025 10:02am Anemia affecting March 20 9:33am History of miscarriage, currently pregna nt March 20, 2025 9:33am March 20, 2025 9:33 am Supervision of high-risk March 20, 2025 9:33am UTI in March 20, 2025 9:33 am Abnormal ultrasound March 20 9:33am Maxillary sinusitis March 26, 2025 8:48 am Anemia affecting March 30 2:44pm History of miscarriage, currently pregna nt March 30, 2025 2:44pm Neck pain March 30, 2025 2:44 pm March 30, 2025 2:44 pm Segmental and somatic dysfunction of cer vical region March 30, 2025 2:44pm Segmental and somatic dysfunction of lum bar region March 30, 2025 2:44pm Segmental and somatic dysfunction of sac ral region March 30, 2025 2:44pm Segmental and somatic dysfunction of tho racic region March 30, 2025 2:44pm Supervision of high-risk March 30, 2025 2:44pm UTI in March 30, 2025 2:44 pm Abnormal ultrasound March 30 2:44pm Maxillary sinusitis March 30, 2025 2:44 pm Anemia affecting April 03 10:17am History of miscarriage, currently pregna nt April 03, 2025 10:17am Neck pain April 03, 2025 10:1 7am April 03, 2025 10:1 7am Segmental and somatic dysfunction of cer vical region April 03, 2025 10:17am Segmental and somatic dysfunction of lum bar region April 03, 2025 10:17am Segmental and somatic dysfunction of sac ral region April 03, 2025 10:17am Segmental and somatic dysfunction of tho racic region April 03, 2025 10:17am Supervision of high-risk April 03, 2025 10:17am UTI in April 03, 2025 10:1 7am Abnormal ultrasound April 03 10:17am Maxillary sinusitis April 03, 2025 10:1 7am Anemia affecting April 13 025 10:02am History of miscarriage, currently pregna nt April 13, 2025 10:02am April 13, 2025 10: 02am Supervision of high-risk Augus t 2024 10:02am UTI in April 13, 2025 10: 02am Abnormal ultrasound April 13 10:02am Decreased movement April 13 10:02am Maxillary sinusitis April 13, 2025 10: 02am Anemia affecting April 17, 2025 9:31am History of miscarriage, currently pregna nt April 17, 2025 9:31am Neck pain April 17, 2025 9: 31am April 17, 2025 9: 31am Segmental and somatic dysfunction of cer vical region April 17, 2025 9:31am Segmental and somatic dysfunction of lum bar region April 17, 2025 9:31am Segmental and somatic dysfunction of sac ral region April 17, 2025 9:31am Segmental and somatic dysfunction of tho racic region April 17, 2025 9:31am Supervision of high-risk Augus t 2024 9:31am UTI in April 17, 2025 9: 31am Abnormal ultrasound April 17 025 9:31am Additional Source Comments INFORMATION SOURCE (unrecogn ized section and content) DATE CREATED AUTHOR 07/27/[address] [facility] DATE CREATED AUTHOR AUTHOR'S ORGANIZ ATION 05/02/2020 [facility] ([place]) DATE CREATED AUTHOR AUTHOR'S ORGANIZ ATION 11/21/2024 [facility] DATE CREATED AUTHOR AUTHOR'S ORGANIZ ATION 12/26/2024 [facility] DATE CREATED AUTHOR AUTHOR'S ORGANIZ ATION 04/21/2025 [facility] Care Teams (unrecognized sec tion and content) Team Status: Active Member Role Status Dates No Primary Care Physician Family Provider Active Dr. Allyssa Velarde , DO Primary Care Provider Activ e Team Status: Inactive Member Role Status Dates Dr. Allyssa Velarde , DO Primary Care Provider, Refe rring Provider Active Dr. Allyssa Godinez DC Attending Provider Active Team Status: Inactive Member Role Status Dates Dr. Allyssa Velarde , DO Primary Care Provider Activ e Dr. Crissy Rodas MD Attending Provider, Referr ing Provider Active Team Status: Active Member Role Status Dates Dr. Allyssa Velarde , DO Primary Care Provider Activ e Dr. Crissy Rodas MD Attending Provider, Referr ing Provider Active Team Status: Inactive Member Role Status Dates Dr. Allyssa Velarde , DO Primary Care Provider, Refe rring Provider Active Dr. Farrah Manning , DO Attending Provider Activ e Team Status: Inactive Member Role Status Dates Dr. Allyssa Velarde , DO Primary Care Provider Activ e Tere Osuna , MILIM Attending Provider, Referring Pr ovider Active Dr. Farrah Manning , DO Other Provider Active Team Status: Inactive Member Role Status Dates Dr. Allyssa Velarde , DO Primary Care Provider Activ e Tere Osuna , MILIM Attending Provider, Referring Pr ovider Active Team Status: Inactive Member Role Status Dates Dr. Allyssa Velarde , DO Primary Care Provider Activ e Dr. Farrah Manning , DO Attending Provider Activ e Team Status: Inactive Member Role Status Dates Dr. Allyssa Velarde , DO Primary Care Provider, Refe rring Provider Active Tere Osuna CNM Attending Provider Active Team Status: Inactive Member Role Status Dates Dr. Allyssa Velarde , DO Primary Care Provider Activ e Dr. Farrah Manning , DO Attending Provider, Refe rring Provider Active Team Status: Inactive Member Role Status Dates Dr. Allyssa Velarde , DO Primary Care Provider, Refe rring Provider Active Ida Ye CURRENCY EXAMINER, CURRENCY EXAMINER-C Attending Provider Active Team Status: Inactive Member Role Status Dates Dr. Allyssa Velarde , DO Primary Care Provider Activ e Ida Ye CURRENCY EXAMINER, CURRENCY EXAMINER-C Attending Provider, Referring Provider Active Team Status: Inactive Member Role Status Dates Dr. Allyssa Velarde , DO Primary Care Provider, Refe rring Provider Active Corina Daniel CNM Attending Provider Active Team Status: Inactive Member Role Status Dates Dr. Allyssa Velarde DO Primary Care Provider, Refe rring Provider Active Javier Barros PA, PA Attending Provider Active Team Status: Inactive Member Role Status Dates Dr. Allyssa Velarde DO Primary Care Provider, Refe rring Provider Active Dr. Crissy Rodas MD Attending Provider Active Team Status: Active Member Role Status Dates Dr. Allyssa Velarde DO Primary Care Provider Activ e Dr. Crissy Rodas MD Admit Provid er, Attending Provider, Referring Provider, Other Provider Active Team Status: Inactive Member Role Status Dates Dr. Allyssa Velarde DO Primary Care Provider Activ e Dr. Crissy Rodas MD Admit Provid er, Attending Provider, Referring Provider Active Quarter Trimmer Relationship Specialty Start Date End Date Allyssa Velarde DO [address] [place] [id number] PCP - General Family Medicine 11/18/24 Quarter Trimmer Relationship Specialty Start Date End Date Allyssa Velarde DO [address] [place] [id number] PCP - General Family Medicine 11/18/24 Quarter Trimmer Relationship Specialty Start Date End Date Allyssa Velarde DO [address] [place] [id number] PCP - General Family Medicine 11/18/24 Team Status: Active Member Role Status Dates Dr. Allyssa Velarde DO Primary Care Provider Activ e Team Status: Inactive Member Role Status Dates Dr. Allyssa Velarde DO Primary Care Provider Activ e Start: October 05, 2024 End: October 05, 2024 Dr. Allyssa Velarde DO Referring Provider Active Start: October 05, 2024 End: October 05, 2024 Dr. Farrah Vande Velde , DO Attending Provider Activ e Start: October 05, 2024 End: October 05, 2024 Team Status: Inactive Member Role Status Dates Dr. Allyssa Velarde , DO Primary Care Provider Activ e Start: October 05, 2024 End: October 05, 2024 Dr. Farrah Manning , DO Attending Provider Activ e Start: October 05, 2024 End: October 05, 2024 Dr. Farrah Manning , DO Referring Provider Activ e Start: October 05, 2024 End: October 05, 2024 Team Status: Inactive Member Role Status Dates Dr. Allyssa Velarde , DO Primary Care Provider Activ e Start: October 13, 2024 End: October 13, 2024 Dr. Farrah Manning , DO Attending Provider Activ e Start: October 13, 2024 End: October 13, 2024 Dr. Farrah Manning , DO Referring Provider Activ e Start: October 13, 2024 End: October 13, 2024 Team Status: Inactive Member Role Status Dates Dr. Allyssa Velarde , DO Primary Care Provider Activ e Start: November 02, 2024 End: November 02, 2024 Dr. Allyssa Velarde , DO Referring Provider Active Start: November 02, 2024 End: November 02, 2024 Dr. Crissy Rodas MD Attending Provider Active Start: November 02, 2024 End: November 02, 2024 Team Status: Inactive Member Role Status Dates Dr. Allyssa Velarde DO Primary Care Provider Activ e Start: November 18, 2024 End: November 19, 2024 Dr. Alfonso Sylvester , DO Emergency Provider Active Start: November 18, 2024 End: November 19, 2024 Team Status: Inactive Member Role Status Dates Dr. Allyssa Velarde , DO Primary Care Provider Activ e Start: November 18, 2024 End: November 19, 2024 Dr. Alfonso Sylvester , DO Attending Provider Active Start: November 18, 2024 End: November 19, 2024 Dr. Alfonso Sylvester , DO Emergency Provider Active Start: November 18, 2024 End: November 19, 2024 Team Status: Inactive Member Role Status Dates Dr. Allyssa Velarde , DO Primary Care Provider Activ e Start: December 02, 2024 End: December 02, 2024 Dr. Allyssa Velarde , DO Referring Provider Active Start: December 02, 2024 End: December 02, 2024 Ida Ye CURRENCY EXAMINER, CURRENCY EXAMINER-C Attending Provider Active Start: December 02, 2024 End: December 02, 2024 Team Status: Inactive Member Role Status Dates Dr. Allyssa Velarde , DO Primary Care Provider Activ e Start: December 28, 2024 End: December 28, 2024 Dr. Allyssa Velarde , DO Referring Provider Active Start: December 28, 2024 End: December 28, 2024 Ida Ye CURRENCY EXAMINER, CURRENCY EXAMINER-C Attending Provider Active Start: December 28, 2024 End: December 28, 2024 Team Status: Inactive Member Role Status Dates Dr. Allyssa Velarde , DO Primary Care Provider Activ e Start: December 28, 2024 End: December 28, 2024 Dr. Farrah Manning , DO Attending Provider Activ e Start: December 28, 2024 End: December 28, 2024 Dr. Farrah Manning , DO Referring Provider Activ e Start: December 28, 2024 End: December 28, 2024 Team Status: Inactive Member Role Status Dates Dr. Allyssa Velarde , DO Primary Care Provider Activ e Start: January 23, 2025 End: January 23, 2025 Dr. Allyssa Velarde , DO Referring Provider Active Start: January 23, 2025 End: January 23, 2025 Corina Daniel CNM Attending Provider Active S tart: January 23, 2025 End: January 23, 2025 Team Status: Active Member Role Status Dates Dr. Allyssa Velarde , DO Primary Care Provider Activ e Start: January 23, 2025 Dr. Farrah Manning , DO Attending Provider Activ e Start: January 23, 2025 Dr. Farrah Manning , DO Referring Provider Activ e Start: January 23, 2025 Team Status: Inactive Member Role Status Dates Dr. Allyssa Velarde , DO Primary Care Provider Activ e Start: January 23, 2025 End: January 23, 2025 Dr. Farrah Manning , DO Attending Provider Activ e Start: January 23, 2025 End: January 23, 2025 Dr. Farrah Manning , DO Referring Provider Activ e Start: January 23, 2025 End: January 23, 2025 Team Status: Inactive Member Role Status Dates Dr. Allyssa Velarde DO Primary Care Provider Activ e Start: February 06, 2025 End: February 06, 2025 Dr. Allyssa Velarde DO Referring Provider Active Start: February 06, 2025 End: February 06, 2025 Corina Daniel CNM Attending Provider Active S tart: February 06, 2025 End: February 06, 2025 Team Status: Inactive Member Role Status Dates Dr. Allyssa Velarde , DO Primary Care Provider Activ e Start: February 24, 2025 End: February 24, 2025 Dr. Allyssa Velarde DO Referring Provider Active Start: February 24, 2025 End: February 24, 2025 Dr. Crissy Rodas MD Attending Provider Active Start: February 24, 2025 End: February 24, 2025 Team Status: Active Member Role/Relationship Status Dates Dr. Allyssa Velarde , DO Primary Care Provider Activ e Team Status: Inactive Member Role/Relationship Status Dates Dr. Allyssa Velarde , DO Primary Care Provider Activ e Start: November 18, 2024 End: November 19, 2024 Dr. Alfonso Sylvester DO Attending Provider Active Start: November 18, 2024 End: November 19, 2024 Dr. Alfonso Sylvester , DO Emergency Provider Active Start: November 18, 2024 End: November 19, 2024 Team Status: Inactive Member Role/Relationship Status Dates Dr. Allyssa Velarde , DO Primary Care Provider Activ e Start: December 02, 2024 End: December 02, 2024 Dr. Allyssa Velarde , Referring Provider Active Start: December 02, 2024 End: December 02, 2024 Ida Ye NP, CURRENCY EXAMINER-C Attending Provider Active Start: December 02, 2024 End: December 02, 2024 Team Status: Inactive Member Role/Relationship Status Dates Dr. Allyssa Velarde , DO Primary Care Provider Activ e Start: December 28, 2024 End: December 28, 2024 Dr. Allyssa Velarde , DO Referring Provider Active Start: December 28, 2024 End: December 28, 2024 Ida Ye NP, CURRENCY EXAMINER-C Attending Provider Active Start: December 28, 2024 End: December 28, 2024 Team Status: Inactive Member Role/Relationship Status Dates Dr. Allyssa Velarde , DO Primary Care Provider Activ e Start: December 28, 2024 End: December 28, 2024 Dr. Farrah Manning , DO Attending Provider Activ e Start: December 28, 2024 End: December 28, 2024 Dr. Farrah Manning , DO Referring Provider Activ e Start: December 28, 2024 End: December 28, 2024 Team Status: Inactive Member Role/Relationship Status Dates Dr. Allyssa Velarde , DO Primary Care Provider Activ e Start: January 23, 2025 End: January 23, 2025 Dr. Allyssa Velarde , Referring Provider Active Start: January 23, 2025 End: January 23, 2025 Corina Daniel CNM Attending Provider Active S tart: January 23, 2025 End: January 23, 2025 Team Status: Inactive Member Role/Relationship Status Dates Dr. Allyssa Velarde , DO Primary Care Provider Activ e Start: January 23, 2025 End: January 23, 2025 Dr. Farrah Manning , DO Attending Provider Activ e Start: January 23, 2025 End: January 23, 2025 Dr. Farrah Manning , DO Referring Provider Activ e Start: January 23, 2025 End: January 23, 2025 Team Status: Inactive Member Role/Relationship Status Dates Dr. Allyssa Velarde , DO Primary Care Provider Activ e Start: February 06, 2025 End: February 06, 2025 Dr. Allyssa Velarde , Referring Provider Active Start: February 06, 2025 End: February 06, 2025 Corina Daniel CNM Attending Provider Active S tart: February 06, 2025 End: February 06, 2025 Team Status: Inactive Member Role/Relationship Status Dates Dr. Allyssa Velarde , DO Primary Care Provider Activ e Start: February 24, 2025 End: February 24, 2025 Dr. Allyssa Velarde , DO Referring Provider Active Start: February 24, 2025 End: February 24, 2025 Dr. Crissy Rodas MD Attending Provider Active Start: February 24, 2025 End: February 24, 2025 Team Status: Inactive Member Role/Relationship Status Dates Dr. Allyssa Velarde , DO Primary Care Provider Activ e Start: March 08, 2025 End: March 08, 2025 Dr. Allyssa Velarde , DO Referring Provider Active Start: March 08, 2025 End: March 08, 2025 Dr. Farrah Manning , DO Attending Provider Activ e Start: March 08, 2025 End: March 08, 2025 Team Status: Inactive Member Role/Relationship Status Dates Dr. Allyssa Velarde , DO Primary Care Provider Activ e Start: December 02, 2024 End: December 02, 2024 Dr. Allyssa Velarde , DO Referring Provider Active Start: December 02, 2024 End: December 02, 2024 Ida Ye CURRENCY EXAMINER, CURRENCY EXAMINER-C Attending Provider Active Start: December 02, 2024 End: December 02, 2024 Team Status: Inactive Member Role/Relationship Status Dates Dr. Allyssa Velarde , DO Primary Care Provider Activ e Start: December 28, 2024 End: December 28, 2024 Dr. Allyssa Velarde , DO Referring Provider Active Start: December 28, 2024 End: December 28, 2024 Ida Ye CURRENCY EXAMINER, CURRENCY EXAMINER-C Attending Provider Active Start: December 28, 2024 End: December 28, 2024 Team Status: Inactive Member Role/Relationship Status Dates Dr. Allyssa Velarde , DO Primary Care Provider Activ e Start: December 28, 2024 End: December 28, 2024 Dr. Farrah Manning , DO Attending Provider Activ e Start: December 28, 2024 End: December 28, 2024 Dr. Farrah Manning , DO Referring Provider Activ e Start: December 28, 2024 End: December 28, 2024 Team Status: Inactive Member Role/Relationship Status Dates Dr. Allyssa Velarde , DO Primary Care Provider Activ e Start: January 23, 2025 End: January 23, 2025 Dr. Allyssa Velarde , Referring Provider Active Start: January 23, 2025 End: January 23, 2025 Corina Daniel CNM Attending Provider Active S tart: January 23, 2025 End: January 23, 2025 Team Status: Inactive Member Role/Relationship Status Dates Dr. Allyssa Velarde DO Primary Care Provider Activ e Start: January 23, 2025 End: January 23, 2025 Dr. Farrah Manning , DO Attending Provider Activ e Start: January 23, 2025 End: January 23, 2025 Dr. Farrah Manning , DO Referring Provider Activ e Start: January 23, 2025 End: January 23, 2025 Team Status: Inactive Member Role/Relationship Status Dates Dr. Allyssa Velarde DO Primary Care Provider Activ e Start: February 06, 2025 End: February 06, 2025 Dr. Allyssa Velarde DO Referring Provider Active Start: February 06, 2025 End: February 06, 2025 Corina Daniel CNM Attending Provider Active S tart: February 06, 2025 End: February 06, 2025 Team Status: Inactive Member Role/Relationship Status Dates Dr. Allyssa Velarde DO Primary Care Provider Activ e Start: February 24, 2025 End: February 24, 2025 Dr. Allyssa Velarde DO Referring Provider Active Start: February 24, 2025 End: February 24, 2025 Dr. Crissy Rodas MD Attending Provider Active Start: February 24, 2025 End: February 24, 2025 Team Status: Inactive Member Role/Relationship Status Dates Dr. Allyssa Velarde DO Primary Care Provider Activ e Start: March 08, 2025 End: March 08, 2025 Dr. Allyssa Velarde DO Referring Provider Active Start: March 08, 2025 End: March 08, 2025 Dr. Farrah Manning , DO Attending Provider Activ e Start: March 08, 2025 End: March 08, 2025 Team Status: Inactive Member Role/Relationship Status Dates Dr. Allyssa Velarde DO Primary Care Provider Activ e Start: March 20, 2025 End: March 20, 2025 Dr. Allyssa Velarde DO Referring Provider Active Start: March 20, 2025 End: March 20, 2025 Ida Ye CURRENCY EXAMINER, CURRENCY EXAMINER-C Attending Provider Active Start: March 20, 2025 End: March 20, 2025 Team Status: Active Member Role/Relationship Status Dates Dr. Allyssa Velarde DO Primary Care Provider Activ e Start: March 20, 2025 Ida Ye CURRENCY EXAMINER, CURRENCY EXAMINER-C Attending Provider Active Start: March 20, 2025 Ida Ye CURRENCY EXAMINER, CURRENCY EXAMINER-C Referring Provider Active Start: March 20, 2025 Team Status: Inactive Member Role/Relationship Status Dates Dr. Allyssa Velarde , Primary Care Provider Activ e Start: March 20, 2025 End: March 20, 2025 Ida Ye CURRENCY EXAMINER, CURRENCY EXAMINER-C Attending Provider Active Start: March 20, 2025 End: March 20, 2025 Ida Ye CURRENCY EXAMINER, CURRENCY EXAMINER-C Referring Provider Active Start: March 20, 2025 End: March 20, 2025 Team Status: Inactive Member Role/Relationship Status Dates Dr. Allyssa Velarde , Primary Care Provider Activ e Start: March 26, 2025 End: March 26, 2025 Dr. Allyssa Velarde DO Referring Provider Active Start: March 26, 2025 End: March 26, 2025 [facility] Self Schedule Attending Provider Active Start: March 26, 2025 End: March 26, 2025 Team Status: Inactive Member Role/Relationship Status Dates Dr. Allyssa Velarde DO Primary Care Provider Activ e Start: March 30, 2025 End: March 30, 2025 Dr. Allyssa Velarde DO Referring Provider Active Start: March 30, 2025 End: March 30, 2025 Corina Daniel CNM Attending Provider Active S tart: March 30, 2025 End: March 30, 2025 Team Status: Inactive Member Role/Relationship Status Dates Dr. Allyssa Velarde DO Primary Care Provider Activ e Start: December 28, 2024 End: December 28, 2024 Dr. Allyssa Velarde DO Referring Provider Active Start: December 28, 2024 End: December 28, 2024 Ida Ye CURRENCY EXAMINER, CURRENCY EXAMINER-C Attending Provider Active Start: December 28, 2024 End: December 28, 2024 Team Status: Inactive Member Role/Relationship Status Dates Dr. Allyssa Velarde , DO Primary Care Provider Activ e Start: December 28, 2024 End: December 28, 2024 Dr. Farrah Manning , DO Attending Provider Activ e Start: December 28, 2024 End: December 28, 2024 Dr. Farrah Manning , DO Referring Provider Activ e Start: December 28, 2024 End: December 28, 2024 Team Status: Inactive Member Role/Relationship Status Dates Dr. Allyssa Velarde DO Primary Care Provider Activ e Start: January 23, 2025 End: January 23, 2025 Dr. Allyssa Velarde , Referring Provider Active Start: January 23, 2025 End: January 23, 2025 Corina Daniel CNM Attending Provider Active S tart: January 23, 2025 End: January 23, 2025 Team Status: Inactive Member Role/Relationship Status Dates Dr. Allyssa Velarde DO Primary Care Provider Activ e Start: January 23, 2025 End: January 23, 2025 Dr. Farrah Manning DO Attending Provider Activ e Start: January 23, 2025 End: January 23, 2025 Dr. Farrah Mannign , DO Referring Provider Activ e Start: January 23, 2025 End: January 23, 2025 Team Status: Inactive Member Role/Relationship Status Dates Dr. Allyssa Velarde DO Primary Care Provider Activ e Start: February 06, 2025 End: February 06, 2025 Dr. Allyssa Velarde DO Referring Provider Active Start: February 06, 2025 End: February 06, 2025 Corina Daniel CNM Attending Provider Active S tart: February 06, 2025 End: February 06, 2025 Team Status: Inactive Member Role/Relationship Status Dates Dr. Allyssa Velarde DO Primary Care Provider Activ e Start: February 24, 2025 End: February 24, 2025 Dr. Allyssa Velarde DO Referring Provider Active Start: February 24, 2025 End: February 24, 2025 Dr. Crissy Rodas MD Attending Provider Active Start: February 24, 2025 End: February 24, 2025 Team Status: Inactive Member Role/Relationship Status Dates Dr. Allyssa Velarde , DO Primary Care Provider Activ e Start: March 08, 2025 End: March 08, 2025 Dr. Allyssa Velarde , Referring Provider Active Start: March 08, 2025 End: March 08, 2025 Dr. Farrah Manning , DO Attending Provider Activ e Start: March 08, 2025 End: March 08, 2025 Team Status: Inactive Member Role/Relationship Status Dates Dr. Allyssa Velarde , DO Primary Care Provider Activ e Start: March 20, 2025 End: March 20, 2025 Dr. Allyssa Velarde , Referring Provider Active Start: March 20, 2025 End: March 20, 2025 Ida Ye CURRENCY EXAMINER, CURRENCY EXAMINER-C Attending Provider Active Start: March 20, 2025 End: March 20, 2025 Team Status: Inactive Member Role/Relationship Status Dates Dr. Allyssa Velarde , DO Primary Care Provider Activ e Start: March 20, 2025 End: March 20, 2025 Ida Ye CURRENCY EXAMINER, CURRENCY EXAMINER-C Attending Provider Active Start: March 20, 2025 End: March 20, 2025 Ida Ye CURRENCY EXAMINER, CURRENCY EXAMINER-C Referring Provider Active Start: March 20, 2025 End: March 20, 2025 Team Status: Inactive Member Role/Relationship Status Dates Dr. Allyssa Velarde DO Primary Care Provider Activ e Start: March 26, 2025 End: March 26, 2025 Dr. Allyssa Velarde DO Referring Provider Active Start: March 26, 2025 End: March 26, 2025 [facility] Self Schedule Attending Provider Active Start: March 26, 2025 End: March 26, 2025 Team Status: Inactive Member Role/Relationship Status Dates Dr. Allyssa Velarde DO Primary Care Provider Activ e Start: March 30, 2025 End: March 30, 2025 Dr. Allyssa Velarde DO Referring Provider Active Start: March 30, 2025 End: March 30, 2025 Corina Daniel CNM Attending Provider Active S tart: March 30, 2025 End: March 30, 2025 Team Status: Active Member Role/Relationship Status Dates Dr. Allyssa Velarde DO Primary Care Provider Activ e Start: March 30, 2025 Corina Daniel CNM Attending Provider Active S tart: March 30, 2025 Team Status: Inactive Member Role/Relationship Status Dates Dr. Allyssa Velarde DO Primary Care Provider Activ e Start: April 03, 2025 End: April 03, 2025 Dr. Allyssa Velarde DO Referring Provider Active Start: April 03, 2025 End: April 03, 2025 Corina Daniel CNM Attending Provider Active S tart: April 03, 2025 End: April 03, 2025 Team Status: Inactive Member Role/Relationship Status Dates Dr. Allyssa Velarde DO Primary Care Provider Activ e Start: March 30, 2025 End: March 30, 2025 Corina Daniel CNM Attending Provider Active S tart: March 30, 2025 End: March 30, 2025 Team Status: Inactive Member Role/Relationship Status Dates Dr. Allyssa Velarde DO Primary Care Provider Activ e Start: April 13, 2025 End: April 13, 2025 Dr. Allyssa Velarde DO Referring Provider Active Start: April 13, 2025 End: April 13, 2025 Dr. Farrah Manning DO Attending Provider Activ e Start: April 13, 2025 End: April 13, 2025 Team Status: Inactive Member Role/Relationship Status Dates Dr. Allyssa Velarde DO Primary Care Provider Activ e Start: April 17, 2025 End: April 17, 2025 Dr. Allyssa Velarde DO Referring Provider Active Start: April 17, 2025 End: April 17, 2025 Dr. Crissy Rodas MD Attending Provider Active Start: April 17, 2025 End: April 17, 2025 Source Comments (unrecognize d section and content) In the event this informatio n is protected by the Federal Confidentiality of Alcohol and Drug Abuse Patient Records regulations: The Federal rules restrict any use of the information to criminally investigate or prosecute any alcohol or drug abuse patient.[facility] the event this information is protected by the Federal Confidentiality of Alcohol and Drug Abuse Patient Records regulations: The Federal rules restrict any use of the information to criminally investigate or prosecute any alcohol or drug abuse patient.[facility] the event this information is protected by the Federal Confidentiality of Alcohol and Drug Abuse Patient Records regulations: The Federal rules restrict any use of the information to criminally investigate or prosecute any alcohol or drug abuse patient.[facility] Reason for Visit (unrecogniz ed section and content) Reason Comments Cough Cough, sinus pressur e, N/V all x 2 days Reason Onset Date Comments Results 11/19/2024 FOR RECORDS PERTAINING TO PATIENTS WHO ARE [...] BE BASED ON THE PRIMARY CLINICAL RECORDS. [facility] Education [employer] [facility]. provides no warranty or guarantee of the accuracy or completeness of information in this document.
--- OUTSIDE RECORDS SUMMARY | 2025-04-22 09:16 | XMS RPT_ITS | CCD ---
Author Organization [facility] Care Team Providers Care [place] Hand Name Role Phone EMPLOYEE, HEALTH Unavailable Unavailable [...] Velarde Primary Care Provider 1(3 [phone]) Dr. Allsysa Velarde Referring Provider Dr. Allyssa Godinez Attending Provider [phone] Cassi CHEMICAL HANDLER, CHEMICAL HANDLER-C Ida Attending Provider 1(330 ) BRAYAN Osuna Attending Provider 1(330) Fiorella MENDEZ, ANDREA Patterson Attending Provider BRAYAN Daniel Attending Provider 1(330) Dr. Allyssa Velarde Primary Care Provider 1( 30) Dr. Allyssa Velarde Referring Provider Dr. Allyssa Godinez Attending Provider [phone] Cassi CHEMICAL HANDLER, CHEMICAL HANDLER-C Ida Attending Provider 1(330 ) Dr. Allyssa Velarde Primary Care Provider 1(3 30) Dr. Allyssa Velarde Referring Provider Dr. Allyssa Godinez Attending Provider [phone] Cassi CHEMICAL HANDLER, CHEMICAL HANDLER-C Ida Attending Provider 1(330 ) Dr. Crissy [...] Care Unavailable FARRAH MCKEON Referring Unavailab KRISTINA rOdoñez Attending Unavailable FARRAH MCKEON Referring Unavailab MISAEL Llanos Attending Unavailable ALLYSSA VELARDE Primary Care Unavailable Nga ARIAS, Dr. Hamilton Attending Provider [phone] Cassi CHEMICAL HANDLER-CIda Attending Provider [phone] Corina Daniel CNM [...] 04) Adrianna HIGUERA, Dr. Woodward Attending Provider [phone] Syd ARIAS, Dr. Allyssa Munoz Primary Care Provider Cassi CHEMICAL HANDLER-CIda Referring Provider [phone] Self Schedule, [facility] Attending Provider Brenda vailable Syd ARIAS, Dr. Allyssa Munoz Primary Care Provider Dr. Allyssa Velarde DO Referring Provider [phone] Cassi COKER-CIda Attending Provider [phone] Allyssa Velarde Primary Care Unavailable Syd, Allyssa Munoz Referring Unavailable Ida Ye Attending Unavailable Syd, Allyssa Munoz Primary Care Unavailable Syd, Allyssa Munoz Referring Unavailable Ida Ye Attending Unavailable Dylan VelFarrah marcano Attending Unavailabl e Syd, Allyssa Munoz Primary [...] Allyssa Munoz Referring Unavailable Farrah Manning [facility] Syd, Allyssa Munoz Referring Unavailable Syd, Allyssa Munoz Primary Care Unavailable Crissy Rodas Attending Unavailable Syd, Allyssa Munoz Primary Care Unavailable Ida Ye Referring Unavailable Ida Ye Attending Unavailable Allergies Allergy Classification Reported Allergen(s) Allergy Type Date of Onset Reaction(s) Facility (4 sources) Azithromycin; Translations: [AZITHROMYCIN] Drug Allergy 11-18-2024 [facility] Medications Current Medications Medication Drug Class(es) Dates [...] PO daily December 28, 2024 12:00am Multivit 04-Csgt-Ldzjjg 1-Dha (Pnv-Dha) 27 mg iron-1 mg -300 mg capsule (13 sources) Start: 09-27-2024 Multivit 92-Nfrm-Ctmiab 1-Dha (Pnv-Dha) 27 mg iron-1 mg -300 [...] Test Name Value Interpretation Reference Range Facility Business Associate Office Visit Reporton 04-17-2025 Business Associate Office Visit Report [facility] [address], [address] [place] [address] OFFICE VISIT Date of Service: 04/17/25 MR#: [id number] Acct: [id number] Name: EDEL GALLOWAY Rep #: [id number] : 1995 Provider: Dr. 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 0 (more content not included)... Normal [facility] Laboratory - Chemistry and C hemistry - challengeOrdered By: Farrah Restrepo on 04-13-2025 Glucose Ql (U) Negative [facility] Laboratory - UrinalysisOrder ed By: Farrah Restrepo on 04-13-2025 Protein Ql (U) Negative [facility] Business Associate Office Visit Reporton 04-13-2025 Business Associate Office Visit Report [facility] [address], [address] [place] [address] OFFICE VISIT Date of Service: 04/13/25 MR#: [id number] Acct: [id number] Name: EDEL GALLOWAY CHUY Rep #: [id number] : 1995 Provider: Dr. 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 Normal [facility] Laboratory - Chemistry and C hemistry - challengeOrdered By: Corina Daniel on 04-03-2025 Glucose Ql (U) Negative [facility] Laboratory - UrinalysisOrder ed By: Corina Daniel on 04-03-2025 Protein Ql (U) Negative [facility] Business Associate Office Visit Reporton 04-03-2025 Business Associate Office Visit Report [facility] [address], [address] [place] [address] OFFICE VISIT Date of Service: 04/03/25 MR#: [id number] Acct: [id number] Name: EDEL GALLOWAY Rep #: [id number] : 1995 Provider: BRAYAN Jj ams Age/Sex: 30/F [place] [facility] [place]: Signed Intake Vital Signs 02/06/25 11:11 03/30/25 14:46 04/03/25 10:21 Height 5 ft 4 in 5 ft 4 in 5 ft 4 in Weight: 165 lb 2 oz BMI 28.3 BP 116/74 Intake Visit Reasons: 37wk ob Chief Complaint: 37wk ob Dolphin Researcher Required: No Is patient in pain?: No [...] 1 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 wants to do anatomy scan in [place]. 11/02/24 -???-???-???-???-???-? ??-???-???-???-???-??? -???- (more content not included)... Normal [facility] Rule out Beta Strep (Grp. B) on 2025 WILMAR Group B Beta Streptococcus is not isolated. Normal [facility] Comment on above: Performed By: #### M 100.3400 ####[facility] [address] [place], [address] Laboratory - Chemistry and C hemistry - challengeOrdered By: Corina Daniel on 03-30-2025 Glucose Ql (U) Negative [facility] Laboratory - UrinalysisOrder ed By: Corina Daniel on 03-30-2025 Protein Ql (U) Negative [facility] Business Associate Office Visit Reporton 03-30-2025 Business Associate Office Visit Report [facility], [address] [place] [address] OFFICE VISIT Date of Service: 03/30/25 MR#: [id number] Acct: [id number] Name: EDEL GALLOWAY Rep #: [id number] : 1995 Provider: BRAYAN Jj ams Age/Sex: 29/F [place] [facility] [place]: Signed Intake Vital Signs 03/26/25 08:56 [...] Reasons: 36wk ob Chief Complaint: 36wk ob Dolphin Researcher Required: No Is patient in pain?: No [...] 1 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 ??-???-? (more content not included)... Normal [facility] Screening beta-hemolytic Str eptococcus cultureOrdered By: Corina Daniel on 03-30-2025 Beta-hemolytic Streptococcus culture Group B Beta Streptococcus is not isolated. 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 Normal [facility] Absolute lymphocyte countOrd ered By: Farrah Restrepo on 03-20-2025 Lymphocytes Auto (Unsp spec) [#/Vol] 1.72 10*3/uL 0.83-4.51 [facility] Absolute neutrophil countOrd ered By: Farrah Restrepo on 03-20-2025 Neutrophils (Bld) [#/Vol] 6.3 10*3/uL 2.0-7.7 [facility] Automated lymphocyte count a s percentage of total leukocytesOrdered By: Farrah Restrepo on 03-20-2025 Lymphocytes/100 WBC Auto (Unsp spec) 19.3 % 19-41 [facility] Basophil percentageOrdered B y: Farrah Restrepo on 03-20-2025 Basophils/100 WBC (Bld) 0.4 % 0-1 [facility] CBC W/Diff, Automatedon 03-07 Absolute Lymph 1.72 X10 3/uL Normal 0.83-4.51 [facility] Comment on above: Performed By: #### L 100.0100 ####[facility] [address] [place], [place], [id number] Absolute Neut 6.3 X10 3/uL Normal 2.0-7.7 [facility] Comment on above: Performed By: #### L 100.0100 ####[facility] [address] [place], [address] Basophils/100 WBC (Bld) 0.4 % Normal 0-1 [facility] Comment on above: Performed By: #### L 100.0100 ####[facility] [address] [place], [address] Eosinophils/100 WBC (Bld) 1.9 % Normal 0-5 [facility] Comment on above: Performed By: #### L 100.0100 ####[facility] [address] [place], [address] Erythrocyte distribution width (RBC) [Ratio] 13.1 % Normal 11.6-14.6 [facility] Comment on above: Performed By: #### L 100.0100 ####[facility] [address] [place], [address] Hematocrit (Bld) [Volume fraction] 31.2 % Low 37-47 [facility] Comment on above: Performed By: #### L 100.0100 ####[facility] [address] [place], [address] Hemoglobin (Bld) [Mass/Vol] 10.1 g/dL Low 12.0-15.0 [facility] Comment on above: Performed By: #### L 100.0100 ####[facility] [address] [place], [address] IG% 0.700 Normal 0.0-0.9 [facility] Comment on above: Result Comment: IG% - Immature Granulocytes (promyelocytes, myelocytes and metamyelocytes) > 1% indicates that a LEFT SHIFT is Present. Performed By: #### L 100.0100 ####[facility] [address] [place], [address] Lymphocytes/100 WBC (Bld) 19.3 % Normal 19-41 [facility] Comment on above: Performed By: #### L 100.0100 ####[facility] [address] [place], [address] MCH (RBC) [Entitic mass] 27.4 pg Normal 27.0-32.0 [facility] Comment on above: Performed By: #### L 100.0100 ####[facility] [address] [place], [address] MCHC (RBC) [Mass/Vol] 32.4 g/dL Normal 32-36 [facility] Comment on above: Performed By: #### L 100.0100 ####[facility] [address] [place], [address] MCV (RBC) [Entitic vol] 84.8 fL Normal 81-99 [facility] Comment on above: Performed By: #### L 100.0100 ####[facility] [address] [place], [address] Monocytes/100 WBC (Bld) 7.4 % Normal 0-10 [facility] Comment on above: Performed By: #### L 100.0100 ####[facility] [address] [place], [address] Neutrophils/100 WBC (Bld) 70.3 % High 47-70 [facility] Comment on above: Performed By: #### L 100.0100 ####[facility] [address] [place], [address] Nucleated RBC (Bld) [#/Vol] 0 10*3/uL Normal 0-5 [facility] Comment on above: Performed By: #### L 100.0100 ####[facility] [address] [place], [address] Platelet mean volume (Bld) [Entitic vol] 11.9 fL Normal 6.2-12.0 [facility] Comment on above: Performed By: #### L 100.0100 ####[facility] [address] [place], [address] Platelets (Bld) [#/Vol] 199 10*3/uL Normal 150-450 [facility] Comment on above: Performed By: #### L 100.0100 ####[facility] [address] [place], [address] RBC (Bld) [#/Vol] 3.68 10*6/uL Low 4.2-5.4 [facility] Comment on above: Performed By: #### L 100.0100 ####[facility] [address] [place], [address] RDW SD 40.3 fl Normal 35.1-43.9 [facility] Comment on above: Performed By: #### L 100.0100 ####[facility] [address] [place], [address] WBC (Bld) [#/Vol] 8.9 10*3/uL Normal 4.4-11.0 [facility] Comment on above: Performed By: #### L 100.0100 ####[facility] [address] [place], [address] Eosinophil percentageOrdered By: Farrah Restrepo on 03-20-2025 Eosinophils/100 WBC (Bld) 1.9 % 0-5 [facility] Erythrocyte distribution wid th ratioOrdered By: Farrah Restrepo on 03-20-2025 Erythrocyte distribution width (RBC) [Ratio] 13.1 % 11.6-14.6 [facility] Erythrocyte distribution wid th standard deviationOrdered By: Farrah Restrepo on 03-20-2025 Erythrocyte distribution width (RBC) [Ratio] 40.3 fl 35.1-43.9 [facility] Hematocrit Auto (Bld) [Volum e fraction]Ordered By: Farrah Restrepo on 03-20-2025 Hematocrit (Bld) [Volume fraction] 31.2 % Low 37-47 [facility] Hemoglobin measurementOrdere d By: Farrah Restrepo on 03-20-2025 Hemoglobin (Bld) [Mass/Vol] 10.1 g/dL Low 12.0-15.0 [facility] Immature granulocytes/100 WB C Auto (Bld)Ordered By: Farrah Restrepo on 03-20-2025 Immature granulocytes/100 WBC (Bld) 0.700 % 0.0-0.9 [facility] Comment on above: IG% - Immature Granu locytes (promyelocytes, myelocytes and metamyelocytes) > 1% indicates that a LEFT SHIFT is Present. Laboratory - Chemistry and C hemistry - challengeOrdered By: Ida Ye on 03-20-2025 Glucose Ql (U) Negative [facility] Laboratory - UrinalysisOrder ed By: Ida Ye on 03-20-2025 Protein Ql (U) Negative [facility] MCV (mean corpuscular volume ) determinationOrdered By: Farrah Restrepo on 03-20-2025 MCV (RBC) [Entitic vol] 84.8 fL 81-99 [facility] Mean corpuscular hemoglobin (MCH) determinationOrdered By: Farrah Restrepo on 03-20-2025 MCH (RBC) [Entitic mass] 27.4 pg 27.0-32.0 [facility] Mean corpuscular hemoglobin concentration (MCHC) determinationOrdered By: Farrah Restrepo on 03-20-2025 MCHC (RBC) [Mass/Vol] 32.4 g/dL 32-36 [facility] Mean platelet volume determi nationOrdered By: Farrah Restrepo on 03-20-2025 Platelet mean volume (Bld) [Entitic vol] 11.9 fL 6.2-12.0 [facility] Monocyte percentageOrdered B y: Farrah Restrepo on 03-20-2025 Monocytes/100 WBC (Bld) 7.4 % 0-10 [facility] Neutrophil percentageOrdered By: Farrah Restrepo on 03-20-2025 Neutrophils/100 WBC (Bld) 70.3 % High 47-70 [facility] Nucleated red blood cell per centageOrdered By: Farrah Restrepo on 03-20-2025 Nucleated RBC/100 WBC (Bld) [Ratio] 0 % 0-5 [facility] Business Associate Office Visit Reporton 03-20-2025 Business Associate Office Visit Report [facility] [address], [address] [place] [address] OFFICE VISIT Date of Service: 03/20/25 MR#: [id number] Acct: [id number] Name: EDEL GALLOWAY Rep #: [id number] : 1995 Provider: SABINE casper Age/Sex: 29/F [place] [facility] [place]: Signed Intake Vital Signs 01/23/25 10:17 03/08/25 10:30 03/20/25 09:36 Height 5 ft 4 in 5 ft 4 in 5 ft 4 in Weight: 162 lb 2 oz BMI 27.8 BP 98/64 Intake Visit Reasons: 35wk ob Chief Complaint: 35 Week OB Dolphin Researcher Required: No Is patient in pain?: No [...] 1 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 ??-???-??? (more content not included)... Normal [facility] Platelet countOrdered By: Seb Restrepo on 03-20-2025 Platelets (Bld) [#/Vol] 199 10*3/uL 150-450 [facility] RBC Auto (Bld) [#/Vol]Ordere d By: Farrah Restrepo on 03-20-2025 RBC (Bld) [#/Vol] 3.68 10*6/uL Low 4.2-5.4 [facility] White blood cell (WBC) count Ordered By: Farrah Restrepo on 03-20-2025 WBC (Bld) [#/Vol] 8.9 10*3/uL 4.4-11.0 [facility] Laboratory - Chemistry and C hemistry - challengeOrdered By: Farrah Restrepo on 03-08-2025 Glucose Ql (U) 100 g/dL [facility] Laboratory - UrinalysisOrder ed By: Farrah Restrepo on 03-08-2025 Protein Ql (U) Trace [facility] Business Associate Office Visit Reporton 03-08-2025 Business Associate Office Visit Report [facility] [address], [address] [place] [address] OFFICE VISIT Date of Service: 03/08/25 MR#: [id number] Acct: [id number] Name: EDEL GALLOWAY Rep #: [id number] : 1995 Provider: Dr. 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 -???- (more content not included)... Normal [facility] Laboratory - Chemistry and C hemistry - challengeOrdered By: Crissy Rodas on 02-24-2025 Glucose Ql (U) Negative [facility] Laboratory - UrinalysisOrder ed By: Crissy Rodas on 02-24-2025 Protein Ql (U) Negative [facility] Business Associate Office Visit Reporton 02-24-2025 Business Associate Office Visit Report [facility] [address], [address] [place] [address] OFFICE VISIT Date of Service: 02/24/25 MR#: [id number] Acct: [id number] Name: EDEL GALLOWAY Rep #: [id number] : 1995 Provider: Dr. 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 Normal [facility] Laboratory - Chemistry and C hemistry - challengeOrdered By: Corina Daniel on 02-06-2025 Glucose Ql (U) Negative [facility] Laboratory - UrinalysisOrder ed By: Corina Daniel on 02-06-2025 Protein Ql (U) Negative [facility] Business Associate Office Visit Reporton 02-06-2025 Business Associate Office Visit Report [facility] [address], [address] [place] [address] OFFICE VISIT Date of Service: 02/06/25 MR#: [id number] Acct: [id number] Name: EDEL GALLOWAY Rep #: [id number] : 1995 Provider: BRAYAN Jj ams Age/Sex: 29/F [place] [facility] [place]: Signed Intake Vital Signs 12/28/24 14:53 01/23/25 10:17 02/06/25 11:11 Height 5 ft 4 in 5 ft 4 in 5 ft 4 in Weight: 162 lb 4 oz BMI 27.8 BP 112/75 Intake Visit Reasons: 29 wk ob Chief Complaint: 29wk OB Dolphin Researcher Required: No Is patient in pain?: No [...] 1 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 Date Name GA/Weeks Outcome Route Bth Weight [facility] miscarriage @5-6 wks 09/24/23 Miroslava 40 live - full term 7#9oz Female epidural [facility] Jonah Acosta Delivery Date: 09/24/23 Last Updated [...] c sabra (more content not included)... Normal [facility] Absolute lymphocyte countOrd ered By: Ida Ye on 01-23-2025 Lymphocytes Auto (Unsp spec) [#/Vol] 1.13 10*3/uL 0.83-4.51 [facility] Absolute neutrophil countOrd ered By: Ida Ye on 01-23-2025 Neutrophils (Bld) [#/Vol] 7.4 10*3/uL 2.0-7.7 [facility] Automated lymphocyte count a s percentage of total leukocytesOrdered By: Ida Ye on 01-23-2025 Lymphocytes/100 WBC Auto (Unsp spec) 12.0 % Low 19-41 [facility] Basophil percentageOrdered B y: Ida Ye on 01-23-2025 Basophils/100 WBC (Bld) 0.3 % 0-1 [facility] CBC W/Diff, Automatedon 01-05 Absolute Lymph 1.13 X10 3/uL Normal 0.83-4.51 [facility] Comment on above: Performed By: #### L 509.8002, L501.0250, L3890.6006, L100.0100 ####[facility] [address] [place], [address] Absolute Neut 7.4 X10 3/uL Normal 2.0-7.7 [facility] Comment on above: Performed By: #### L 509.8002, L501.0250, L3890.6006, L100.0100 ####[facility] [address] [place], [address] Basophils/100 WBC (Bld) 0.3 % Normal 0-1 [facility] Comment on above: Performed By: #### L 509.8002, L501.0250, L3890.6006, L100.0100 ####[facility] [address] [place], [address] Eosinophils/100 WBC (Bld) 0.9 % Normal 0-5 [facility] Comment on above: Performed By: #### L 509.8002, L501.0250, L3890.6006, L100.0100 ####[facility] [address] [place], [address] Erythrocyte distribution width (RBC) [Ratio] 13.2 % Normal 11.6-14.6 [facility] Comment on above: Performed By: #### L 509.8002, L501.0250, L3890.6006, L100.0100 ####[facility] [address] [place], [address] Hematocrit (Bld) [Volume fraction] 30.2 % Low 37-47 [facility] Comment on above: Performed By: #### L 509.8002, L501.0250, L3890.6006, L100.0100 ####[facility] [address] [place], [address] Hemoglobin (Bld) [Mass/Vol] 10.3 g/dL Low 12.0-15.0 [facility] Comment on above: Performed By: #### L 509.8002, L501.0250, L3890.6006, L100.0100 ####[facility] [address] [place], [address] IG% 0.400 Normal 0.0-0.9 [facility] Comment on above: Result Comment: IG% - Immature Granulocytes (promyelocytes, myelocytes and metamyelocytes) > 1% indicates that a LEFT SHIFT is Present. Performed By: #### L 509.8002, L501.0250, L3890.6006, L100.0100 ####[facility] [address] [place], [address] Lymphocytes/100 WBC (Bld) 12.0 % Low 19-41 [facility] Comment on above: Performed By: #### L 509.8002, L501.0250, L3890.6006, L100.0100 ####[facility] [address] [place], [address] MCH (RBC) [Entitic mass] 29.8 pg Normal 27.0-32.0 [facility] Comment on above: Performed By: #### L 509.8002, L501.0250, L3890.6006, L100.0100 ####[facility] [address] [place], [address] MCHC (RBC) [Mass/Vol] 34.1 g/dL Normal 32-36 [facility] Comment on above: Performed By: #### L 509.8002, L501.0250, L3890.6006, L100.0100 ####[facility] [address] [place], [address] MCV (RBC) [Entitic vol] 87.3 fL Normal 81-99 [facility] Comment on above: Performed By: #### L 509.8002, L501.0250, L3890.6006, L100.0100 ####[facility] [address] [place], [address] Monocytes/100 WBC (Bld) 7.3 % Normal 0-10 [facility] Comment on above: Performed By: #### L 509.8002, L501.0250, L3890.6006, L100.0100 ####[facility] [address] [place], [address] Neutrophils/100 WBC (Bld) 79.1 % High 47-70 [facility] Comment on above: Performed By: #### L 509.8002, L501.0250, L3890.6006, L100.0100 ####[facility] [address] [place], [address] Nucleated RBC (Bld) [#/Vol] 0 10*3/uL Normal 0-5 [facility] Comment on above: Performed By: #### L 509.8002, L501.0250, L3890.6006, L100.0100 ####[facility] [address] [place], [address] Platelet mean volume (Bld) [Entitic vol] 11.5 fL Normal 6.2-12.0 [facility] Comment on above: Performed By: #### L 509.8002, L501.0250, L3890.6006, L100.0100 ####[facility] [address] [place], [address] Platelets (Bld) [#/Vol] 181 10*3/uL Normal 150-450 [facility] Comment on above: Performed By: #### L 509.8002, L501.0250, L3890.6006, L100.0100 ####[facility] [address] [place], [address] RBC (Bld) [#/Vol] 3.46 10*6/uL Low 4.2-5.4 [facility] Comment on above: Performed By: #### L 509.8002, L501.0250, L3890.6006, L100.0100 ####[facility] [address] [place], [address] RDW SD 42.0 fl Normal 35.1-43.9 [facility] Comment on above: Performed By: #### L 509.8002, L501.0250, L3890.6006, L100.0100 ####[facility] [address] [place], [address] WBC (Bld) [#/Vol] 9.4 10*3/uL Normal 4.4-11.0 [facility] Comment on above: Performed By: #### L 509.8002, L501.0250, L3890.6006, L100.0100 ####[facility] [address] [place], [address] Eosinophil percentageOrdered By: Ida Ye on 01-23-2025 Eosinophils/100 WBC (Bld) 0.9 % 0-5 [facility] Erythrocyte distribution wid th ratioOrdered By: Ida Ye on 01-23-2025 Erythrocyte distribution width (RBC) [Ratio] 13.2 % 11.6-14.6 [facility] Erythrocyte distribution wid th standard deviationOrdered By: Ida Ye on 01-23-2025 Erythrocyte distribution width (RBC) [Ratio] 42.0 fl 35.1-43.9 [facility] Glucose Challenge Gest 1H 50 renee 01-23-2025 GLU GEST 50g 1H 121 mg/dL Normal 70-140 [facility] Comment on above: Performed By: #### L 509.8002, L501.0250, L3890.6006, L100.0100 ####[facility] [address] [place], [place], [address] Glucose measurement at 2 sophia rs post-dose gestational glucose tolerance testOrdered By: Ida Ye on 01-23-2025 Glucose [Mass/Vol] 121 mg/dL 70-140 [facility] HIVon 01-23-2025 HIV Non-Reactive Normal Nonreactive [facility] Comment on above: Result Comment: Non- Reactive Reactive Repeatedly reactive samples must be confirmed according to CDC recommended confirmatory algorithms. The subresults for either HIVAG or AHIV can be used as an aid in the selection of the confirmation algorithm for reactive samples. Send out specimens with Reactive results to [facility] for confirmation. Order the HIV antibody detection and differentiation: #[id number] Performed By: #### L 509.8002, L501.0250, L3890.6006, L100.0100 ####[facility] [address] [place], [place], [address] Hematocrit Auto (Bld) [Volum e fraction]Ordered By: Ida Ye on 01-23-2025 Hematocrit (Bld) [Volume fraction] 30.2 % Low 37-47 [facility] Hemoglobin measurementOrdere d By: Ida Ye on 01-23-2025 Hemoglobin (Bld) [Mass/Vol] 10.3 g/dL Low 12.0-15.0 [facility] Immature granulocytes/100 WB C Auto (Bld)Ordered By: Ida Ye on 01-23-2025 Immature granulocytes/100 WBC (Bld) 0.400 % 0.0-0.9 [facility] Comment on above: IG% - Immature Granu locytes (promyelocytes, myelocytes and metamyelocytes) > 1% indicates that a LEFT SHIFT is Present. Laboratory - Chemistry and C hemistry - challengeOrdered By: Corina Daniel on 01-23-2025 Glucose Ql (U) Negative [facility] Laboratory - UrinalysisOrder ed By: Corina Daniel on 01-23-2025 Protein Ql (U) Negative [facility] MCV (mean corpuscular volume ) determinationOrdered By: Ida Ye on 01-23-2025 MCV (RBC) [Entitic vol] 87.3 fL 81-99 [facility] Mean corpuscular hemoglobin (MCH) determinationOrdered By: Ida Ye on 01-23-2025 MCH (RBC) [Entitic mass] 29.8 pg 27.0-32.0 [facility] Mean corpuscular hemoglobin concentration (MCHC) determinationOrdered By: Ida Ye on 01-23-2025 MCHC (RBC) [Mass/Vol] 34.1 g/dL 32-36 [facility] Mean platelet volume determi nationOrdered By: Ida Ye on 01-23-2025 Platelet mean volume (Bld) [Entitic vol] 11.5 fL 6.2-12.0 [facility] Monocyte percentageOrdered B y: Ida Ye on 01-23-2025 Monocytes/100 WBC (Bld) 7.3 % 0-10 [facility] Neutrophil percentageOrdered By: Ida Ye on 01-23-2025 Neutrophils/100 WBC (Bld) 79.1 % High 47-70 [facility] No Panel InformationOrdered By: Ida Ye on 01-23-2025 HIV (1&2) Antibody Non-Reactive Nonreactive [facility] Comment on above: Non-ReactiveReactive Repeatedly reactive samples must be confirmed according to CDC recommended confirmatory algorithms. The subresults for either HIVAG or AHIV can be used as an aid in the selection of the confirmation algorithm for reactive samples.Send out specimens with Reactive results to [facility] for confirmation.Order the HIV antibody detection and differentiation: lc#[id number] Nucleated red blood cell per centageOrdered By: Ida Ye on 01-23-2025 Nucleated RBC/100 WBC (Bld) [Ratio] 0 % 0-5 [facility] Business Associate Office Visit Reporton 01-23-2025 Business Associate Office Visit Report [facility] [address], [address] [place] [address] OFFICE VISIT Date of Service: 01/23/25 MR#: [id number] Acct: [id number] Name: EDEL GALLOWAY Rep #: [id number] : 1995 Provider: BRAYAN Jj ams Age/Sex: 29/F [place] [facility] Status: Signed Intake Vital Signs 12/02/24 09:59 12/28/24 14:53 01/23/25 10:17 Height 5 ft 4 in 5 ft 4 in 5 ft 4 in Weight: 161 lb 8 oz BMI 27.7 BP 107/75 Intake Visit Reasons: 27wk ob/glucose Chief Complaint: 27wk OB Dolphin Researcher Required: No Is patient in pain?: No [...] 1 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 Date Name GA/Weeks Outcome Route Bth Weight Gen Labor Lgth Anesthesia Del [facility] Provider FOB 11/20/22 miscarriage @5-6 wks 09/24/23 Delainey 40 live - full term 7#9oz Female epidural [facility] Jonah Acosta Delivery Date: 09/24/23 Last Updated [...] She decli (more content not included)... Normal [facility] Platelet countOrdered By: Anil Ye on 01-23-2025 Platelets (Bld) [#/Vol] 181 10*3/uL 150-450 [facility] RBC Auto (Bld) [#/Vol]Ordere d By: Ida Ye on 01-23-2025 RBC (Bld) [#/Vol] 3.46 10*6/uL Low 4.2-5.4 [facility] Syphilis Antibodieson 2024 Syphilis Abs Non-Reactive Normal Nonreactive [facility] Comment on above: Performed By: #### L 509.8002, L501.0250, L3890.6006, L100.0100 ####[facility] [address] [place], [address] White blood cell (WBC) count Ordered By: Ida Ye on 01-23-2025 WBC (Bld) [#/Vol] 9.4 10*3/uL 4.4-11.0 [facility] Urine Cultureon 12-31-2024 URC Below infection travis durbin Mixed Gram Positive Organisms [place] Count 1000-10,000 MIXC Mixed contaminants. Submit a new specimen if indicated. Normal [facility] Comment on above: Performed By: #### M 100.2200 #### [facility] Laboratory [address] [place], [place], [address] Laboratory - Chemistry and C hemistry - challengeOrdered By: Farrah Restrepo on 12-28-2024 Bilirubin Ql (U) Negative [facility] Glucose Ql (U) Negative [facility] Ketones Ql (U) Large (80+) [facility] pH (U) 6.0 [pH] [facility] Specific gravity (U) [Rel density] 1.025 [facility] Urobilinogen (U) [Mass/Vol] 0.0181057 mg/dL [facility] Laboratory - Hematology and Cell countsOrdered By: Farrah Restrepo on 12-28-2024 Hemoglobin Ql (U) Negative [facility] Laboratory - Specimen inform ationOrdered By: Farrah Restrepo on 12-28-2024 Clarity (U) Cloudy [facility] Color (U) Yellow [facility] Laboratory - UrinalysisOrder ed By: Farrah Restrepo on 12-28-2024 Nitrite Ql (U) Negative [facility] Protein Ql (U) Negative [facility] No Panel InformationOrdered By: Farrah Restrepo on 12-28-2024 Urine Leukocytes Negatve [facility] Business Associate Office Visit Reporton 12-28-2024 Business Associate Office Visit Report [facility] [address], [address] [place] [address] OFFICE VISIT Date of Service: 12/28/24 MR#: [id number] Acct: [id number] Name: EDEL GALLOWAY Rep #: [id number] : 1995 Provider: SABINE casper Age/Sex: 29/F [place] [facility] [place]: Signed Intake Vital Signs 11/02/24 14:27 12/02/24 09:59 12/28/24 14:53 12/28/24 14:53 Height 5 ft 4 in 5 ft 4 in 5 ft 4 in 5 ft 4 in Weight: 159 lb 2 oz BMI 27.3 BP 110/74 Intake Visit Reasons: 23 wk ob *POS UTI Dolphin Researcher Required: No Is patient in pain?: No [...] 1 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 Date Name GA/Weeks Outcome Route B[facility]/20[facility]22 miscarriage @5-6 wks 09/24/23 Delainey 40 live - full term 7#9oz Female epidural [facility] Jonah Acsota Delivery Date: 09/24/23 Last Updated by: Macrina [...] -???-???-???-???-???-? ??-???-??? (more content not included)... Normal [facility] Urine cultureOrdered By: Karissa Restrepo on 12-28-2024 Bacteria identified Cx Nom (U) Positive Abnormal [facility] Laboratory - Chemistry and C hemistry - challengeOrdered By: Ida Ye on 12-02-2024 Glucose Ql (U) Negative [facility] Laboratory - UrinalysisOrder ed By: Ida Ye on 12-02-2024 Protein Ql (U) Negative [facility] Business Associate Office Visit Reporton 12-02-2024 Business Associate Office Visit Report [facility], [address] [place] [address] OFFICE VISIT Date of Service: 12/02/24 MR#: [id number] Acct: [id number] Name: EDEL GALLOWAY Rep #: [id number] : 1995 Provider: SABINE casper Age/Sex: 29/F [place] [facility] [place]: Signed Intake Vital Signs 10/05/24 12:36 11/18/24 18:02 12/02/24 09:59 Height 5 ft 4 in 5 ft 4 in 5 ft 4 in Weight: 160 lb 2 oz BMI 27.4 BP 118/70 Intake Visit Reasons: 19 wk ob Chief Complaint: 19 Week OB Dolphin Researcher Required: No Is patient in pain?: No [...] 1 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 ??-???-???-???-?? (more content not included)... [facility] Urine Cultureon 11-20-2024 URC Below infection travis durbin Mixed Gram Positive Organisms [place] Count 1000-10,000 MIXC Mixed contaminants. Submit a new specimen if indicated. Normal [facility] Comment on above: Performed By: #### L 400.0001, M100.678, M100.2200 #### [facility] [place], [address] Nenita 11-19-2024 VIRAJ Telephone ([facility]) EDEL GALLOWAY ([id number]) 1995 F Date Time Provider Department 11/19/24 WENCESLAO SHORT JR [facility] During your visit today, we recorded the following information about you: Wenceslao Short Jr., GABRIELA.BANKING SERVICES CLERK 11/19/2024 9:03 AM Signed Patient is positive for influenza A. 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 She could use [id number] medications that are appropriate during for her other symptoms. Please inform her of the positive test she is negative for COVID, influenza B and RSV. Allergies As of Date: 11/19/2024 Noted Allergy Reaction AZITHROMYCIN 11/18/2024 2 - Rash Date Reviewed: 11/18/2024 Reviewed by: Wenceslao Short Jr., COSTING ANALYST.BANKING SERVICES CLERK - Fully Assessed Prescriptions as of 11/19/2024 [...] Status:Closed by WENCESLAO SHORT on 11/19/24 Normal [facility] Bilirubin Test strip Ql (U)O rdered By: Alfonso Sylvester on 11-18-2024 Bilirubin Ql (U) Negative Negative [facility] CNOVon 11-18-2024 CNOV Office Visit ([facility] ) EDEL GALLOWAY ([id number]) 1995 F Date Time Provider Department 11/18/24 8:30 AM [address] [facility] During your visit today, we recorded the following information about you: Temperature Pulse Respiration Blood pressure 97.4 degrees 110/minute 18/minute 106/71 Weight 70.9 kg Wenceslao Short Jr., COSTING ANALYST.BANKING SERVICES CLERK 11/18/2024 9:13 AM Signed [facility] Subjective Edel Galloway [...] She has been prescribed Zofran by her [employer] but only has 1 tablet left. Patient states she has been exposed to influenza A from a family member. She is currently taking Tamiflu prescribed by her [employer]. The history is provided by the patient. [...] and even though she has contacted her [employer] for refill no prescription has been sent [...] Reviewed: 11/18/2024 Reviewed by: Wenceslao Short Jr., GABRIELA.BANKING SERVICES CLERK - Fully Assessed Reason for Visit: Cough [28] Cmt: Cough, sinus pressure, N/V all x 2 days Primary Visit Diagnosis:Congestion of nasal sinus [R09.81] Other Visit Diagnosis:Nausea and vomiting, unspecified vomiting type [R11.2] Order(s):COVID AND INFLUENZA A/B AND RSV PCR, ROUTINE [SQCVFLRS] Order #: [id number]. #:[id number] doxylamine-pyridoxine, vit B6, 10-10 mg TbECTake 2 tabs at night. If symptoms persist after 2 days add one tab in the morning. If symptoms still persist after 4 days add a tab mid-dayDisp: 12 tabletRfl: 0 amoxicillin-clavulanat e potassium (AUGMENTIN) 875-125 mg per tabletTake 1 tablet by mouth two times a day for 5 da (more content not included)... 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 Normal [facility] Epithelial cells.squamous LM Ql (Urine sed)Ordered By: Alfonso Sylvester on 11-18-2024 Epithelial cells.squamous LM.HPF (Urine sed) [#/Area] 5 /[HPF] 5-10 [facility] Glucose Ql (U)Ordered By: Paul Sylvester on 11-18-2024 Urine Glucose (UA) Normal mg/dl Normal [facility] Influenza virus A and B and SARS-CoV-2 (COVID-19) and Respiratory syncytial virus RNAOrdered By: Alfonso Sylvester on 11-18-2024 SARS-CoV-2 (COVID-19) RNA ASIF+probe Ql (Unsp spec) Influenzae A Abnormal [facility] Ketones Test strip Ql (U)Ord ered By: Alfonso Sylvester on 11-18-2024 Ketones Ql (U) 150 mg/dl Abnormal Negative [facility] Comment on above: CRITICAL VALUE *H M100.678on 11-18-2024 SARS-CoV-2 (COVID-19) Ab IA Ql FLUABV+SARS-CoV-2+RSV Pnl Resp ASIF+probe Copy of report sent to Infection Control Printer [id number] 11/18/242122 ADNRES. RESULTS CALLED TO BECKY DAVE 11/18/242122 Amy Patel. REPORT READ BACK BY SAME. FLUABV+SARS-CoV-2+RSV Pnl Resp ASIF+probe FLUABV+SARS-CoV-2+RSV Pnl Resp ASIF+probe SARS-CoV-2 (COVID 19) Negative INFLUENZA A A Positive A INFLUENZA B Negative RSV PCR Negative INFLUENZAE A Normal [facility] Comment on above: Performed By: #### L 400.0001, M100.678, M100.2200 #### [facility] Laboratory [address] [place] [address]. [place], [address] Microscopic analysis of urin e for red blood cells (RBC)Ordered By: Alfonso Sylvester on 11-18-2024 Microscopic analysis of urine for red blood cells (RBC) 0-5 SEEN /hpf 0-5 [facility] Urine RBC 0-5 SEEN /hpf 0-5 [facility] Mucus LM Ql (Urine sed)Order ed By: Alfonso Sylvester on 11-18-2024 Mucus Ql (Urine sed) 0 SEEN /hpf [facility] Nitrite Test strip Ql (U)Ord ered By: Alfonso Sylvester on 11-18-2024 Nitrite Ql (U) Negative Negative [facility] Protein Test strip Ql (U)Ord ered By: Alfonso Sylvester on 11-18-2024 Protein Ql (U) 15 mg/dl High Negative [facility] Squamous epithelial cells de tection in urine sediment by light microscopyOrdered By: Alfonso Sylvester on 11-18-2024 Epithelial cells.squamous LM Ql (Urine sed) 5-10 SEEN /hpf 5-10 [facility] Urinalysis, Completeon 11-18 BACTERIA 1+ /hpf Normal None Seen [facility] Comment on above: Order Comment: CRITI VASYL VALUE CALLED TO [facility] 11/18/24 2205 Amy Lollo. RESULTS READ BACK BY SAME. COFFEE BREWER TO SPECIFY Performed By: #### L 400.0001, M100.678, M100.2200 #### [facility] Laboratory [address] [place], [address] EPI,SQUAMOUS 5-10 SEEN Normal 5-10 [facility] Comment on above: Order Comment: CRITI VASYL VALUE CALLED TO [facility] 11/18/24 2205 Amy Lollo. RESULTS READ BACK BY SAME. COFFEE BREWER TO SPECIFY Performed By: #### L 400.0001, M100.678, M100.2200 #### [facility] Laboratory [address] [place], [address] RBC 0-5 SEEN Normal 0-5 [facility] Comment on above: Order Comment: CRITI VASYL VALUE CALLED TO [facility] 11/18/24 2205 Amy Lollo. RESULTS READ BACK BY SAME. COFFEE BREWER TO SPECIFY Performed By: #### L 400.0001, M100.678, M100.2200 #### [facility] Laboratory [address] [place], [address] WBC 25-50 SEEN Normal 0-5 [facility] Comment on above: Order Comment: CRITI VASYL VALUE CALLED TO [facility] 11/18/24 2205 Amy Lollo. RESULTS READ BACK BY SAME. COFFEE BREWER TO SPECIFY Performed By: #### L 400.0001, M100.678, M100.2200 #### [facility] Laboratory [address] [place], [address] Mucus Ql (Urine sed) 0 SEEN Normal [facility] Comment on above: Order Comment: CRITI VASYL VALUE CALLED TO [facility] 11/18/24 2205 Amy Patel. RESULTS READ BACK BY SAME. COFFEE BREWER TO SPECIFY Performed By: #### L 400.0001, M100.678, M100.2200 #### [facility] Laboratory [address] [place], [address] Urine blood detectionOrdered By: Alfonso Sylvester on 11-18-2024 Urine Occult Blood Negative Negative [facility] Urine clarityOrdered By: Beatrice Sylvester on 11-18-2024 Clarity (U) Sl. Cloudy Clear [facility] Urine color determinationOrd ered By: Alfonso Sylvester on 11-18-2024 Color (U) Yellow Yellow [facility] Urine cultureOrdered By: Beatrice Sylvester on 11-18-2024 Bacteria identified Cx Nom (U) Positive Abnormal [facility] Urine glucose detectionOrder ed By: Alfonso Sylvester on 11-18-2024 Glucose Ql (U) Normal mg/dl Normal [facility] Urine leukocyte esterase det ection by dipstickOrdered By: Alfonso Sylvester on 11-18-2024 Leukocyte esterase Test strip Ql (U) 500 /ul High Negative [facility] Urine pHOrdered By: Alfonso quintanilla on 11-18-2024 pH (U) 6.0 [pH] 5.0 - 8.0 [facility] Urine sediment bacteria coun t by microscopy (number/high power field)Ordered By: Alfonso Sylvester on 11-18-2024 Bacteria LM.HPF (Urine sed) [#/Area] 1 /[HPF] None Seen [facility] Urine specific gravity measu rementOrdered By: Alfonso Sylvester on 11-18-2024 Specific gravity (U) [Rel density] 1.020 1.002-1.030 [facility] Urine urobilinogen measureme ntOrdered By: Alfonso Sylvester on 11-18-2024 Urobilinogen Ql (U) Normal mg/dl Normal [facility] Urobilinogen Ql (U)Ordered B y: Alfonso Sylvester on 11-18-2024 Urine Urobilinogen Normal mg/dl Normal [facility] White blood cell countOrdere d By: Alfonso Sylvester on 11-18-2024 Urine WBC 25-50 SEEN /hpf 0-5 [facility] White blood cell count 25-50 SEEN /hpf 0-5 [facility] Laboratory - Chemistry and C hemistry - challengeOrdered By: Crissy Rodas on 11-02-2024 Glucose Ql (U) Negative [facility] Laboratory - UrinalysisOrder ed By: Crissy Rodas on 11-02-2024 Protein Ql (U) Negative [facility] Business Associate Office Visit Reporton 11-02-2024 Business Associate Office Visit Report [facility]'s [address], [address] [place] [address] OFFICE VISIT Date of Service: 11/02/24 MR#: [id number] Acct: [id number] Name: EDEL GALLOWAY Rep #: [id number] : 1995 Provider: Dr. 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 -???-???-???-???-???-? ??-???-???-???-???-?? (more content not included)... Normal [facility] Absolute lymphocyte countOrd ered By: Farrah Lauro on 10-13-2024 Lymphocytes Auto (Unsp spec) [#/Vol] 1.67 10*3/uL 0.83-4.51 [facility] Absolute neutrophil countOrd ered By: Farrah Lauro on 10-13-2024 Neutrophils (Bld) [#/Vol] 6.4 10*3/uL 2.0-7.7 [facility] Automated lymphocyte count a s percentage of total leukocytesOrdered By: Farrah Restrepo on 10-13-2024 Lymphocytes/100 WBC Auto (Unsp spec) 18.7 % Low 19-41 [facility] Basophil percentageOrdered B y: Farrah Lauro on 10-13-2024 Basophils/100 WBC (Bld) 0.4 % 0-1 [facility] CBC W/Diff, Automatedon Absolute Lymph 1.67 X10 3/uL Normal 0.83-4.51 [facility] Comment on above: Performed By: #### L 509.4005, L3890.6300, L100.0100, L3890.6005, BTS, L509.8000, L3890.6100 ####[facility] [address] [place], [address] Absolute Neut 6.4 X10 3/uL Normal 2.0-7.7 [facility] Comment on above: Performed By: #### L 509.4005, L3890.6300, L100.0100, L3890.6005, BTS, L509.8000, L3890.6100 ####[facility] [address] [place], [address] Basophils/100 WBC (Bld) 0.4 % Normal 0-1 [facility] Comment on above: Performed By: #### L 509.4005, L3890.6300, L100.0100, L3890.6005, BTS, L509.8000, L3890.6100 ####[facility] [address] [place], [address] Eosinophils/100 WBC (Bld) 1.0 % Normal 0-5 [facility] Comment on above: Performed By: #### L 509.4005, L3890.6300, L100.0100, L3890.6005, BTS, L509.8000, L3890.6100 ####[facility] [address] [place], [address] Erythrocyte distribution width (RBC) [Ratio] 12.9 % Normal 11.6-14.6 [facility] Comment on above: Performed By: #### L 509.4005, L3890.6300, L100.0100, L3890.6005, BTS, L509.8000, L3890.6100 ####[facility] [address] [place], [address] Hematocrit (Bld) [Volume fraction] 37.8 % Normal 37-47 [facility] Comment on above: Performed By: #### L 509.4005, L3890.6300, L100.0100, L3890.6005, BTS, L509.8000, L3890.6100 ####[facility] [address] [place], [address] Hemoglobin (Bld) [Mass/Vol] 12.9 g/dL Normal 12.0-15.0 [facility] Comment on above: Performed By: #### L 509.4005, L3890.6300, L100.0100, L3890.6005, BTS, L509.8000, L3890.6100 ####[facility] [address] [place], [address] IG% 0.300 Normal 0.0-0.9 [facility] Comment on above: Result Comment: IG% - Immature Granulocytes (promyelocytes, myelocytes and metamyelocytes) > 1% indicates that a LEFT SHIFT is Present. Performed By: #### L 509.4005, L3890.6300, L100.0100, L3890.6005, BTS, L509.8000, L3890.6100 ####[facility] [address] [place], [address] Lymphocytes/100 WBC (Bld) 18.7 % Low 19-41 [facility] Comment on above: Performed By: #### L 509.4005, L3890.6300, L100.0100, L3890.6005, BTS, L509.8000, L3890.6100 ####[facility] [address] [place], [address] MCH (RBC) [Entitic mass] 28.9 pg Normal 27.0-32.0 [facility] Comment on above: Performed By: #### L 509.4005, L3890.6300, L100.0100, L3890.6005, BTS, L509.8000, L3890.6100 ####[facility] [address] [place], [address] MCHC (RBC) [Mass/Vol] 34.1 g/dL Normal 32-36 [facility] Comment on above: Performed By: #### L 509.4005, L3890.6300, L100.0100, L3890.6005, BTS, L509.8000, L3890.6100 ####[facility] [address] [place], [address] MCV (RBC) [Entitic vol] 84.8 fL Normal 81-99 [facility] Comment on above: Performed By: #### L 509.4005, L3890.6300, L100.0100, L3890.6005, BTS, L509.8000, L3890.6100 ####[facility] [address] [place], [address] Monocytes/100 WBC (Bld) 7.6 % Normal 0-10 [facility] Comment on above: Performed By: #### L 509.4005, L3890.6300, L100.0100, L3890.6005, BTS, L509.8000, L3890.6100 ####[facility] [address] [place], [address] Neutrophils/100 WBC (Bld) 72.0 % High 47-70 [facility] Comment on above: Performed By: #### L 509.4005, L3890.6300, L100.0100, L3890.6005, BTS, L509.8000, L3890.6100 ####[facility] [address] [place], [address] Nucleated RBC (Bld) [#/Vol] 0 10*3/uL Normal 0-5 [facility] Comment on above: Performed By: #### L 509.4005, L3890.6300, L100.0100, L3890.6005, BTS, L509.8000, L3890.6100 ####[facility] [address] [place], [address] Platelet mean volume (Bld) [Entitic vol] 10.8 fL Normal 6.2-12.0 [facility] Comment on above: Performed By: #### L 509.4005, L3890.6300, L100.0100, L3890.6005, BTS, L509.8000, L3890.6100 ####[facility] [address] [place], [address] Platelets (Bld) [#/Vol] 257 10*3/uL Normal 150-450 [facility] Comment on above: Performed By: #### L 509.4005, L3890.6300, L100.0100, L3890.6005, BTS, L509.8000, L3890.6100 ####[facility] [address] [place], [address] RBC (Bld) [#/Vol] 4.46 10*6/uL Normal 4.2-5.4 [facility] Comment on above: Performed By: #### L 509.4005, L3890.6300, L100.0100, L3890.6005, BTS, L509.8000, L3890.6100 ####[facility] [address] [place], [address] RDW SD 39.4 fl Normal 35.1-43.9 [facility] Comment on above: Performed By: #### L 509.4005, L3890.6300, L100.0100, L3890.6005, BTS, L509.8000, L3890.6100 ####[facility] [address] [place], [address] WBC (Bld) [#/Vol] 8.9 10*3/uL Normal 4.4-11.0 [facility] Comment on above: Performed By: #### L 509.4005, L3890.6300, L100.0100, L3890.6005, BTS, L509.8000, L3890.6100 ####[facility] [address] [place], [address] Eosinophil percentageOrdered By: Farrah Restrepo on 10-13-2024 Eosinophils/100 WBC (Bld) 1.0 % 0-5 [facility] Erythrocyte distribution wid th ratioOrdered By: Farrah Restrepo on 10-13-2024 Erythrocyte distribution width (RBC) [Ratio] 12.9 % 11.6-14.6 [facility] Erythrocyte distribution wid th standard deviationOrdered By: Farrah Restrepo on 10-13-2024 Erythrocyte distribution width (RBC) [Entitic vol] 39.4 fL 35.1-43.9 [facility] Erythrocyte distribution width (RBC) [Ratio] 39.4 fl 35.1-43.9 [facility] HIV - WCHon 10-13-2024 HIV Non-Reactive Normal Nonreactive [facility] Comment on above: Order Comment: Reaso n for Exam: Performed By: #### L 509.4005, L3890.6300, L100.0100, L3890.6005, BTS, L509.8000, L3890.6100 ####[facility] [address] [place], [place], [address] HIV 1 and HIV-2 antibody ass ay with HIV-1 p24 antigen detectionOrdered By: Farrah Restrepo on 10-13-2024 HIV 1+2 Ab+HIV1 p24 Ag IA Ql Non-Reactive Nonreactive [facility] HIV 1+2 Ab+HIV1 p24 Ag IA Ql Ordered By: Farrah Restrepo on 10-13-2024 HIV (1&2) Antibody Non-Reactive Nonreactive [facility] Hematocrit Auto (Bld) [Volum e fraction]Ordered By: Farrah Restrepo on 10-13-2024 Hematocrit (Bld) [Volume fraction] 37.8 % 37-47 [facility] Hemoglobin measurementOrdere d By: Farrah Restrepo on 10-13-2024 Hemoglobin (Bld) [Mass/Vol] 12.9 g/dL 12.0-15.0 [facility] Hepatitis B Surface Antigeno n 10-13-2024 HEP B Surf Ag Non-Reactive [facility] Comment on above: Order Comment: Reaso n for Exam: Performed By: #### L 509.4005, L3890.6300, L100.0100, L3890.6005, BTS, L509.8000, L3890.6100 ####[facility] [address] [place], [address] Hepatitis B surface antigen detectionOrdered By: Farrah Restrepo on 10-13-2024 Hepatitis B Surface Antigen Non-Reactive Nonreactive [facility] Hepatitis C Antibodyon 10-13 Hepatitis C AB Non-Reactive Normal Nonreactive [facility] Comment on above: Order Comment: Reaso n for Exam: Result Comment: Non Reactive: < 0.8 Equivocal: >/= 0.8 to < 1.0 Reactive: >/= 1.0 The [facility] requires that a reactive/equivocal HCV antibody result be sent out for confirmation. HCV Quant by PCR testing. Performed By: #### L 509.4005, L3890.6300, L100.0100, L3890.6005, BTS, L509.8000, L3890.6100 ####[facility] [address] [place], [address] Hepatitis C virus antibody a ssayOrdered By: Farrah Restrepo on 10-13-2024 Hepatitis C Antibody Non-Reactive Nonreactive [facility] Comment on above: Non Reactive: < 0.8 Equivocal: >/= 0.8 to < 1.0 Reactive: >/= 1.0The CDC requires that a reactive/equivocal HCV antibody result be sent out for confirmation. HCV Quant by PCR testing. Immature granulocytes/100 WB C Auto (Bld)Ordered By: Farrah Restrepo on 10-13-2024 Immature granulocytes/100 WBC (Bld) 0.300 % 0.0-0.9 [facility] Comment on above: IG% - Immature Granu locytes (promyelocytes, myelocytes and metamyelocytes) > 1% indicates that a LEFT SHIFT is Present. L509.8000on 10-13-2024 Syphilis Abs Non-Reactive Normal [facility] Comment on above: Order Comment: Reaso n for Exam: Performed By: #### L 509.4005, L3890.6300, L100.0100, L3890.6005, BTS, L509.8000, L3890.6100 ####[facility] [address] [place], [address] Lymphocytes Auto (Unsp spec) [#/Vol]Ordered By: Farrah Restrepo on 10-13-2024 Lymphocytes (Bld) [#/Vol] 1.67 10*3/uL 0.83-4.51 [facility] Lymphocytes/100 WBC Auto (Un sp spec)Ordered By: Farrah Restrepo on 10-13-2024 Lymphocytes/100 WBC (Bld) 18.7 % Low 19-41 [facility] MCV (mean corpuscular volume ) determinationOrdered By: Farrah Restrepo on 10-13-2024 MCV (RBC) [Entitic vol] 84.8 fL 81-99 [facility] Mean corpuscular hemoglobin (MCH) determinationOrdered By: Farrah Restrepo on 10-13-2024 MCH (RBC) [Entitic mass] 28.9 pg 27.0-32.0 [facility] Mean corpuscular hemoglobin concentration (MCHC) determinationOrdered By: Farrah Restrepo on 10-13-2024 MCHC (RBC) [Mass/Vol] 34.1 g/dL 32-36 [facility] Mean platelet volume determi nationOrdered By: Farrah Restrepo on 10-13-2024 Platelet mean volume (Bld) [Entitic vol] 10.8 fL 6.2-12.0 [facility] Monocyte percentageOrdered B y: Farrah Restrepo on 10-13-2024 Monocytes/100 WBC (Bld) 7.6 % 0-10 [facility] Neutrophil percentageOrdered By: Farrah Restrepo on 10-13-2024 Neutrophils/100 WBC (Bld) 72.0 % High 47-70 [facility] Nucleated red blood cell per centageOrdered By: Farrah Restrepo on 10-13-2024 Nucleated RBC/100 WBC (Bld) [Ratio] 0 % 0-5 [facility] Platelet countOrdered By: Seb Restrepo on 10-13-2024 Platelets (Bld) [#/Vol] 257 10*3/uL 150-450 [facility] RBC Auto (Bld) [#/Vol]Ordere d By: Farrah Restrepo on 10-13-2024 RBC (Bld) [#/Vol] 4.46 10*6/uL 4.2-5.4 [facility] Rubella IgGon 10-13-2024 Rubella IgG Reactive Normal Nonreactive [facility] Comment on above: Order Comment: Reaso n for Exam: Result Comment: Anti body Results Interpretation of Immune Status Non Reactive Presumed Non-Immune Equivocal Equivocal Reactive Presumed Immune Performed By: #### L 509.4005, L3890.6300, L100.0100, L3890.6005, BTS, L509.8000, L3890.6100 ####[facility] [address] [place], [place], [id number] Rubella immune status IgGOrd ered By: Farrah Restrepo on 10-13-2024 Rubella IgG Antibody Reactive Nonreactive [facility] Comment on above: Antibody Results Int erpretation of Immune Status Non Reactive Presumed Non-Immune Equivocal Equivocal Reactive Presumed Immune Serum Treponema species anti body detectionOrdered By: Farrah Restrepo on 10-13-2024 Treponema sp Ab Ql (S) Non-Reactive [facility] Treponema sp Ab Ql (S)Ordere d By: Farrah Restrepo on 10-13-2024 Syphilis Total Antibody Non-Reactive [facility] Type AND Screenon 10-13-2024 ABO and Rh group Nom (Bld) Blood group O Rh(D) positive Normal [facility] Comment on above: Order Comment: PN Performed By: #### L 509.4005, L3890.6300, L100.0100, L3890.6005, BTS, L509.8000, L3890.6100 ####[facility] [address] [place], [place], [address] White blood cell (WBC) count Ordered By: Farrah Restrepo on 10-13-2024 WBC (Bld) [#/Vol] 8.9 10*3/uL 4.4-11.0 [facility] Chlamydia/GC ASIF aptimaon CHLAMY,NUC ACID Negative Normal Negative [facility] Comment on above: Performed By: #### L 7000.1800, M100.2200 ####[facility] [address] [place], [place], [address] GC BY NUC ACID Negative Normal Negative [facility] Comment on above: Result Comment: Perf ormed at: =G - [facility] [address] [place], [place] [id number] Wet Wash Assembler: Jennifer Villareal MD, Phone: [phone] Performed By: #### L 0.1800, M100.2200 ####[facility] [address] [place], [address] Urine Cultureon 10-06-2024 URC Culture exhibits no growth. Normal [facility] Comment on above: Performed By: #### L 0.1800, M100.2200 ####[facility] [address] [place], [address] C. trachomatis rRNA ASIF+prob e Ql (Unsp spec)Ordered By: Farrah Restrepo on 10-05-2024 Chlamydia DNA (ASIF) Negative Negative [facility] Chlamydia trachomatis rRNA d etection by probe and target amplification methodOrdered By: Farrah Restrepo on 10-05-2024 C. trachomatis rRNA ASIF+probe Ql (Unsp spec) Negative Negative [facility] Neisseria gonorrhoeae nuclei c acid detection by amplified probe techniqueOrdered By: Farrah Restrepo on 10-05-2024 N. gonorrhoeae DNA ASIF+probe Ql (Unsp spec) Negative Negative [facility] Comment on above: Performed at: =G - [facility] [address] [place], [place] [id number] Director: Jennifer Villareal MD, Phone: [phone] Business Associate Office Visit Reporton 10-05-2024 Business Associate Office Visit Report [facility] [address], [address] [place] [address] OFFICE VISIT Date of Service: 10/05/24 MR#: [id number] Acct: [id number] Name: EDEL GALLOWAY Rep #: [id number] : 1995 Provider: Dr. 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 Adrianna Acosta Delivery Date: 09/24/23 [...] NIPT. wants to do anatomy scan in [place]. Menstrual History Last Menst (more content not included)... Normal [facility] Urine cultureOrdered By: Karissa Restrepo on 10-05-2024 Bacteria identified Cx Nom (U) Culture exhibits no growth. [facility] Absolute lymphocyte countOrd ered By: Crissy Rodas on 09-24-2023 Lymphocytes Auto (Unsp spec) [#/Vol] 1.60 10*3/uL 0.83-4.51 [facility] Automated lymphocyte count a s percentage of total leukocytesOrdered By: Crissy Rodas on 09-24-2023 Lymphocytes/100 WBC Auto (Unsp spec) 10.3 % 19-41 [facility] Basophil percentageOrdered B y: Crissy Rodas on 09-24-2023 Basophils/100 WBC (Bld) 0.3 % 0-1 [facility] Eosinophils/100 WBC (Bld) 0.2 % 0-5 [facility] Hemoglobin (Bld) [Mass/Vol] 11.4 g/dL 12.0-15.0 [facility] Monocytes/100 WBC (Bld) 7.4 % 0-10 [facility] Neutrophils (Bld) [#/Vol] 12.7 10*3/uL 2.0-7.7 [facility] Neutrophils/100 WBC (Bld) 81.2 % 47-70 [facility] WBC (Bld) [#/Vol] 15.6 10*3/uL 4.4-11.0 [facility] Blood manual differential co mment interpretation (narrative result)Ordered By: Crissy Rodas on 09-24-2023 Manual differential comment Mauro (Bld) [Interp] SCANNED [facility] Determination of erythrocyte mean corpuscular volume (MCV)Ordered By: Crissy Rodas on 09-24-2023 MCV (RBC) [Entitic vol] 87.6 fL 81-99 [facility] Erythrocyte distribution wid th ratioOrdered By: Crissy Rodas on 09-24-2023 Erythrocyte distribution width (RBC) [Ratio] 12.6 % 11.6-14.6 [facility] Erythrocyte distribution wid th standard deviationOrdered By: Crissy Rodas on 09-24-2023 Erythrocyte distribution width (RBC) [Entitic vol] 40.6 fL 35.1-43.9 [facility] Hematocrit Auto (Bld) [Volum e fraction]Ordered By: Crissy Rodas on 09-24-2023 Hematocrit (Bld) [Volume fraction] 34.7 % 37-47 [facility] Immature granulocytes/100 WB C Auto (Bld)Ordered By: Crissy Rodas on 09-24-2023 Immature granulocytes/100 WBC (Bld) 0.600 % 0.0-0.9 [facility] Comment on above: IG% - Immature Granu locytes (promyelocytes, myelocytes and metamyelocytes) > 1% indicates that a LEFT SHIFT is Present. Laboratory - Hematology and Cell countsOrdered By: Crissy Rodas on 09-24-2023 MCH (RBC) [Entitic mass] 28.8 pg 27.0-32.0 [facility] MCHC (RBC) [Mass/Vol] 32.9 g/dL 32-36 [facility] Nucleated RBC/100 WBC (Bld) [Ratio] 0 % 0-5 [facility] Platelets (Bld) [#/Vol] 168 10*3/uL 150-450 [facility] Platelet mean volume Jayy-Ec ker (Bld) [Entitic vol]Ordered By: Crissy Rodas on 09-24-2023 Platelet mean volume (Bld) [Entitic vol] 13.2 fL 6.2-12.0 [facility] RBC Auto (Bld) [#/Vol]Ordere d By: Crissy Rodas on 09-24-2023 RBC (Bld) [#/Vol] 3.96 10*6/uL 4.2-5.4 [facility] Serum Treponema species anti body detectionOrdered By: Crissy Rodas on 09-24-2023 Treponema sp Ab Ql (S) Non-Reactive [facility] Laboratory - Chemistry and C hemistry - challengeon 09-18-2023 Glucose Ql (U) Negative [facility] Laboratory - Urinalysison Protein Ql (U) Negative [facility] Laboratory - Chemistry and C hemistry - challengeon 09-10-2023 Glucose Ql (U) Negative [facility] Laboratory - Urinalysison Protein Ql (U) Negative [facility] Laboratory - Chemistry and C hemistry - challengeon 09-02-2023 Glucose Ql (U) Negative [facility] Laboratory - Urinalysison Protein Ql (U) Negative [facility] No Panel InformationOrdered By: Tere Osuna on 09-02-2023 Group B Streptococcus Culture Group B Beta Streptococcus is not isolated. [facility] Laboratory - Chemistry and C hemistry - challengeon 08-26-2023 Glucose Ql (U) Negative [facility] Laboratory - Urinalysison Protein Ql (U) Negative [facility] Laboratory - Chemistry and C hemistry - challengeon 08-10-2023 Glucose Ql (U) Negative [facility] Laboratory - Urinalysison Protein Ql (U) Negative [facility] Laboratory - Chemistry and C hemistry - challengeon 07-23-2023 Glucose Ql (U) Negative [facility] Laboratory - Urinalysison Protein Ql (U) Negative [facility] Quantitative serum or plasma 3 hour gestational glucose tolerance panelOrdered By: Tere Osuna on 07-20-2023 Glucose tolerance 3 hours gestational panel See comment [facility] Comment on above: FASTING 90 [...] - challengeon 07-08-2023 Glucose Ql (U) Negative [facility] Laboratory - Urinalysison Protein Ql (U) Negative [facility] Absolute lymphocyte countOrd ered By: Tere Osuna on 07-04-2023 Lymphocytes Auto (Unsp spec) [#/Vol] 1.46 10*3/uL 0.83-4.51 [facility] Basophil percentageOrdered B y: Tere Osuna on 07-04-2023 Basophils/100 WBC (Bld) 0.4 % 0-1 [facility] Eosinophils/100 WBC (Bld) 0.8 % 0-5 [facility] Neutrophils (Bld) [#/Vol] 11.7 10*3/uL 2.0-7.7 [facility] Neutrophils/100 WBC (Bld) 83.0 % 47-70 [facility] WBC (Bld) [#/Vol] 14.1 10*3/uL 4.4-11.0 [facility] Blood erythrocytes count (nu mber/volume)Ordered By: Tere Osuna on 07-04-2023 RBC (Bld) [#/Vol] 3.78 10*6/uL 4.2-5.4 [facility] Blood hemoglobin measurement (mass/volume)Ordered By: Tere Osuna on 07-04-2023 Hemoglobin (Bld) [Mass/Vol] 11.5 g/dL 12.0-15.0 [facility] Blood lymphocytes/100 leukoc ytesOrdered By: Tere Osuna on 07-04-2023 Lymphocytes/100 WBC (Bld) 10.4 % 19-41 [facility] Blood monocytes/100 leukocyt esOrdered By: Tere Osuna on 07-04-2023 Monocytes/100 WBC (Bld) 4.8 % 0-10 [facility] Blood platelet mean volumeOr dered By: Tere Osuna on 07-04-2023 Platelet mean volume (Bld) [Entitic vol] 11.0 fL 6.2-12.0 [facility] Determination of erythrocyte mean corpuscular volume (MCV)Ordered By: Tere Osuna on 07-04-2023 MCV (RBC) [Entitic vol] 91.5 fL 81-99 [facility] Gestational diabetes screen 1-hour screen with 50g oral glucose loadOrdered By: Tere Osuna on 07-04-2023 Glucose 1 Hr post 50 g glucose PO [Mass/Vol] 161 mg/dL 70-140 [facility] HIV 1 and HIV-2 antibody ass ay with HIV-1 p24 antigen detectionOrdered By: Tere Osuna on 07-04-2023 HIV 1+2 Ab+HIV1 p24 Ag IA Ql Non-Reactive Nonreactive [facility] Hematocrit Auto (Bld) [Volum e fraction]Ordered By: Tere Osuna on 07-04-2023 Hematocrit (Bld) [Volume fraction] 34.6 % 37-47 [facility] Laboratory - Hematology and Cell countsOrdered By: Tere Osuna on 07-04-2023 Erythrocyte distribution width (RBC) [Entitic vol] 41.9 fL 35.1-43.9 [facility] Erythrocyte distribution width (RBC) [Ratio] 12.6 % 11.6-14.6 [facility] Immature granulocytes/100 WBC (Bld) 0.600 % 0.0-0.9 [facility] Comment on above: IG% - Immature Granu locytes (promyelocytes, myelocytes and metamyelocytes) > 1% indicates that a LEFT SHIFT is Present. MCH (RBC) [Entitic mass] 30.4 pg 27.0-32.0 [facility] Nucleated RBC/100 W[facility] (Bld) [[facility]] 0 [facility] [Mass/Vol]Or dered By: Tere Osuna on 07-04-2023 MCHC (RBC) [Mass/Vol] 33.2 g/dL 32-36 [facility] Platelets bldOrdered By: Judith Osuna on 07-04-2023 Platelets (Bld) [#/Vol] 207 10*3/uL 150-450 [facility] Serum Treponema species anti body detectionOrdered By: Tere Osuna on 07-04-2023 Treponema sp Ab Ql (S) Non-Reactive [facility] Culture, urineOrdered By: Lissa Osuna on 06-10-2023 Bacteria identified Cx Nom (U) Culture exhibits no growth. [facility] Bacteria identified Cx Nom (U) Culture exhibits no growth. [facility] Laboratory - Chemistry and C hemistry - challengeon 06-10-2023 Bilirubin Ql (U) Negative [facility] Glucose Ql (U) Negative [facility] Ketones Ql (U) Negative [facility] pH (U) 7.0 [pH] [facility] Specific gravity (U) [Rel density] 1.015 [facility] Urobilinogen (U) [Mass/Vol] 0.4257284 mg/dL [facility] Laboratory - Hematology and Cell countson 06-10-2023 Hemoglobin Ql (U) Negative [facility] Laboratory - Specimen inform ationon 06-10-2023 Clarity (U) Cloudy [facility] Color (U) [place] [facility] Laboratory - Urinalysison Nitrite Ql (U) Negative [facility] Protein Ql (U) Negative [facility] No Panel Informationon 06-10 Urine Leukocytes Positive [facility] Urine Non-Hemolyzed Blood [facility] Laboratory - Chemistry and C hemistry - challengeon 05-13-2023 Glucose Ql (U) Negative [facility] Laboratory - Urinalysison Protein Ql (U) Negative [facility] No Panel InformationOrdered By: Ida Ye on 05-13-2023 Miscellaneous Test Comment MAILED SPECIMEN [facility] Laboratory - Chemistry and C hemistry - challengeon 04-14-2023 Glucose Ql (U) Negative [facility] Laboratory - Urinalysison Protein Ql (U) Negative [facility] Laboratory - Chemistry and C hemistry - challengeon 03-16-2023 Glucose Ql (U) Negative [facility] Laboratory - Urinalysison Protein Ql (U) Negative [facility] Absolute lymphocyte countOrd ered By: Farrah Restrepo on 03-12-2023 Lymphocytes Auto (Unsp spec) [#/Vol] 1.80 10*3/uL 0.83-4.51 [facility] Basophil percentageOrdered B y: Farrah Restrepo on 03-12-2023 Basophils/100 WBC (Bld) 0.5 % 0-1 [facility] Eosinophils/100 WBC (Bld) 1.1 % 0-5 [facility] Neutrophils (Bld) [#/Vol] 8.3 10*3/uL 2.0-7.7 [facility] Neutrophils/100 WBC (Bld) 74.4 % 47-70 [facility] WBC (Bld) [#/Vol] 11.1 10*3/uL 4.4-11.0 [facility] Blood erythrocytes count (nu mber/volume)Ordered By: Farrah Restrepo on 03-12-2023 RBC (Bld) [#/Vol] 4.33 10*6/uL 4.2-5.4 [facility] Blood hemoglobin measurement (mass/volume)Ordered By: Farrah Restrepo on 03-12-2023 Hemoglobin (Bld) [Mass/Vol] 12.9 g/dL 12.0-15.0 [facility] Blood lymphocytes/100 leukoc ytesOrdered By: Farrah Restrepo on 03-12-2023 Lymphocytes/100 WBC (Bld) 16.2 % 19-41 [facility] Blood monocytes/100 leukocyt esOrdered By: Farrah Restrepo on 03-12-2023 Monocytes/100 WBC (Bld) 7.3 % 0-10 [facility] Blood platelet mean volumeOr dered By: Farrah Restrepo on 03-12-2023 Platelet mean volume (Bld) [Entitic vol] 10.8 fL 6.2-12.0 [facility] Determination of erythrocyte mean corpuscular volume (MCV)Ordered By: Farrah Restrepo on 03-12-2023 MCV (RBC) [Entitic vol] 88.7 fL 81-99 [facility] HIV 1 and HIV-2 antibody ass ay with HIV-1 p24 antigen detectionOrdered By: Farrah Restrepo on 03-12-2023 HIV 1+2 Ab+HIV1 p24 Ag IA Ql Non-Reactive Nonreactive [facility] Hematocrit Auto (Bld) [Volum e fraction]Ordered By: Farrah Restrepo on 03-12-2023 Hematocrit (Bld) [Volume fraction] 38.4 % 37-47 [facility] Laboratory - Hematology and Cell countsOrdered By: Farrah Restrepo on 03-12-2023 Erythrocyte distribution width (RBC) [Entitic vol] 39.8 fL 35.1-43.9 [facility] Erythrocyte distribution width (RBC) [Ratio] 12.2 % 11.6-14.6 [facility] Immature granulocytes/100 WBC (Bld) 0.500 % 0.0-0.9 [facility] Comment on above: IG% - Immature Granu locytes (promyelocytes, myelocytes and metamyelocytes) > 1% indicates that a LEFT SHIFT is Present. MCH (RBC) [Entitic mass] 29.8 pg 27.0-32.0 [facility] Nucleated RBC/100 WBC (Bld) [Ratio] 0 % 0-5 [facility] MCHC Auto (RBC) [Mass/Vol]Or dered By: Farrah Restrepo on 03-12-2023 MCHC (RBC) [Mass/Vol] 33.6 g/dL 32-36 [facility] No Panel InformationOrdered By: Farrah Restrepo on 03-12-2023 Hepatitis B Surface Antigen Non-Reactive Nonreactive [facility] Hepatitis C Antibody Non-Reactive Nonreactive [facility] Comment on above: Non Reactive: < 0.8 Equivocal: >/= 0.8 to < 1.0 Reactive: >/= 1.0The CDC recommends that a reactive/equivocal HCV antibody result be followed up by the HCV Nucleic Acid Amplificationtest (294945) Rubella IgG Antibody Reactive Nonreactive [facility] Comment on above: Antibody Results Int erpretation of Immune Status Non Reactive Presumed Non-Immune Equivocal Equivocal Reactive Presumed Immune Platelets bldOrdered By: Karissa Restrepo on 03-12-2023 Platelets (Bld) [#/Vol] 262 10*3/uL 150-450 [facility] Serum Treponema species anti body detectionOrdered By: Farrah Restrepo on 03-12-2023 Treponema sp Ab Ql (S) Non-Reactive [facility] Culture, urineOrdered By: Dr Janet Restrepo on 02-21-2023 Bacteria identified Cx Nom (U) Culture exhibits no growth. [facility] Cervical or vagninal specime n microscopic examination by cytology stain (reported asOrdered By: Dr. Restrepo on 02-19-2023 Cytology report Cyto stain Doc (Cvx/Vag) Comment . [facility] Comment on above: The Pap [...] rRNA ASIF+probe Ql (Unsp spec) Negative Negative [facility] Culture, urineOrdered By: Seb Restrepo on 02-19-2023 Bacteria identified Cx Nom (U) Culture exhibits no growth. [facility] Laboratory - CytologyOrdered By: Dr. Restrepo on 02-19-2023 [employer] Specialist Cyto stain Nom (Cvx/Vag) [ID] Comment . [facility] Comment on above: Vita hendrickson, Systems Integration Advisor (ASCP) Laboratory - Microbiology an d Antimicrobial susceptibilityOrdered By: Dr. Restrepo on 02-19-2023 N. gonorrhoeae DNA ASIF+probe Ql (Unsp spec) Negative Negative [facility] Comment on above: Performed at: =[address] [id number] Director: Jennifer Villareal MD, Phone: [phone] Laboratory - Miscellaneous t estsOrdered By: Dr. Restrepo on 02-19-2023 Service comment (Unsp spec) [Interp] Comment . [facility] Comment on above: This liquid based Th inPrep(R) pap test was screened withthe use of an image guided system. Service comment (Unsp spec) [Interp] . . [facility] No Panel InformationOrdered By: Dr. Restrepo on 02-19-2023 Human Papillomavirus Screen Comment . [facility] Comment on above: The HPV DNA reflex c karthik were not met with this specimenresult therefore, no HPV testing was performed.Performed at: [address] [id number] Director: Jennifer Villareal MD, Phone: [phone] Pathology report final diagnosis Narrative Comment . [facility] Comment on above: NEGATIVE FOR INTRAEP ITHELIAL LESION OR MALIGNANCY. Serum or plasma choriogonado tropin detectionOrdered By: Tere Osuna on 01-22-2023 HCG ( test) Ql 2033 mIU/mL <4 [facility] Comment on above: hCG levels with Gest ational AgeGestational Age hCG mIU/mL (IU/L)0.2 - 1 week 5 - 501-2 weeks 50 - 5002-3 weeks 100 - 69766-7 weeks 500 - 198922-8 weeks 1000 - 943193-2 weeks 08521 - 100,0006-8 weeks 38442 - 200,0002-3 months 81234 - 100,000 Serum or plasma choriogonado tropin detectionOrdered By: Tere Osuna on 01-20-2023 HCG ( test) Ql 977 mIU/mL <4 [facility] Comment on above: hCG levels with Gest ational AgeGestational Age hCG mIU/mL (IU/L)0.2 - 1 week 5 - 501-2 weeks 50 - 5002-3 weeks 100 - 93658-3 weeks 500 - 178696-6 weeks 1000 - 505670-9 weeks 31621 - 100,0006-8 weeks 74026 - 200,0002-3 months 97178 - 100,000 Serum or plasma choriogonado tropin detectionOrdered By: Dr. Rodas on 11-19-2022 HCG ( test) Ql 2 mIU/mL <4 [facility] Comment on above: hCG levels with Gest ational AgeGestational Age hCG mIU/mL (IU/L)0.2 - 1 week 5 - 501-2 weeks 50 - 5002-3 weeks 100 - 79520-4 weeks 500 - 024375-4 weeks 1000 - 799934-7 weeks 01635 - 100,0006-8 weeks 43552 - 200,0002-3 months 04815 - 100,000 Serum or plasma choriogonado tropin detectionOrdered By: Dr. Rodas on 11-17-2022 HCG ( test) Ql 13 mIU/mL <4 [facility] Comment on above: hCG levels with Gest ational AgeGestational Age hCG mIU/mL (IU/L)0.2 - 1 week 5 - 501-2 weeks 50 - 5002-3 weeks 100 - 41017-3 weeks 500 - 347168-9 weeks 1000 - 942109-5 weeks 24850 - 100,0006-8 weeks 92822 - 200,0002-3 months 59858 - 100,000 Laboratory - Chemistry and C hemistry - challengeon 2022 HCG ( test) Ql (U) Negative [facility] Work Phone: Comment on above: Very dilute urine sp ecimens, as indicated by a low specificgravity, may not contain farm loan representative levels of hCG. If is still suspected, a first morning urinespecimen should be collected 48 hours later and tested. Absolute lymphocyte counton 03-24-2022 Lymphocytes Auto (Unsp spec) [#/Vol] 2.12 10*3/uL 0.83-4.51 [facility] Work Phone: Basophil percentageon 2021 Basophil percentage 0 SEEN /hpf 0-5 [facility] Work Phone: Basophils/100 WBC (Bld) 0.8 % 0-1 [facility] Work Phone: Bilirubin [Mass/Vol] 0.60 mg/dL 0.20-1.00 [facility] Work Phone: Comment on above: For patients on eltr ombopag therapy, use of Dimension [place] TBIL is not recommended. Chloride [Moles/Vol] 105 mmol/L 98-107 [facility] Work Phone: Eosinophils/100 WBC (Bld) 3.2 % 0-5 [facility] Work Phone: Glucose [Mass/Vol] 108 mg/dL 74-106 [facility] Work Phone: Comment on above: Fasting Glucose resu lt from 100 to 125 mg/dL suggests IMPAIRED HOMEOSTASIS per A.D.A. criteria. Neutrophils (Bld) [#/Vol] 4.7 10*3/uL 2.0-7.7 [facility] Work Phone: Neutrophils/100 WBC (Bld) 59.9 % 47-70 [facility] Work Phone: Potassium [Moles/Vol] 3.8 mmol/L 3.5-5.1 [facility] Work Phone: Protein [Mass/Vol] 7.3 g/dL 6.4-8.2 [facility] Work Phone: Sodium [Moles/Vol] 138 mmol/L 136-145 [facility] Work Phone: WBC (Bld) [#/Vol] 7.8 10*3/uL 4.4-11.0 [facility] Work Phone: Bilirubin Test strip Ql (U)o n 03-24-2022 Bilirubin Ql (U) Negative Negative [facility] Work Phone: [phone] Blood erythrocytes count (nu mber/volume)on 03-24-2022 RBC (Bld) [#/Vol] 4.42 10*6/uL 4.2-5.4 [facility] Work Phone: Blood hemoglobin measurement (mass/volume)on 03-24-2022 Hemoglobin (Bld) [Mass/Vol] 13.3 g/dL 12.0-15.0 [facility] Work Phone: Blood lymphocytes/100 leukoc yteson 03-24-2022 Lymphocytes/100 WBC (Bld) 27.3 % 19-41 [facility] Work Phone: Blood monocytes/100 leukocyt eson 03-24-2022 Monocytes/100 WBC (Bld) 8.5 % 0-10 [facility] Work Phone: [phone] Blood platelet mean volumeon 03-24-2022 Platelet mean volume (Bld) [Entitic vol] 10.6 fL 6.2-12.0 [facility] Work Phone: [phone] Determination of erythrocyte mean corpuscular volume (MCV)on 03-24-2022 MCV (RBC) [Entitic vol] 88.0 fL 81-99 [facility] Work Phone: [phone] Direct bilirubinon Bilirubin.direct [Mass/Vol] 0.15 mg/dL 0.00-0.30 [facility] Work Phone: [phone] Hematocrit Auto (Bld) [Volum e fraction]on 03-24-2022 Hematocrit (Bld) [Volume fraction] 38.9 % 37-47 [facility] Work Phone: [phone] Ketones Test strip Ql (U)on 03-24-2022 Ketones Ql (U) Negative Negative [facility] Work Phone: [phone] Laboratory - Chemistry and C hemistry - challengeon 03-24-2022 HCG ( test) Ql (U) Negative [facility] Work Phone: [phone] Comment on above: Very dilute urine sp ecimens, as indicated by a low specificgravity, may not contain farm loan representative levels of hCG. If is still suspected, a first morning urinespecimen should be collected 48 hours later and tested. ALP [Catalytic activity/Vol] 63 U/L 45-117 [facility] Work Phone: [phone] ALT [Catalytic activity/Vol] 23 U/L 13-56 [facility] Work Phone: [phone] CO2 [Moles/Vol] 27.0 mmol/L 21.0-32.0 [facility] Work Phone: [phone] Globulin (S) [Mass/Vol] 3.7 g/dL 2.2-4.2 [facility] Work Phone: [phone] Lipase [Catalytic activity/Vol] 128 U/L 73-393 [facility] Work Phone: [phone] Urea nitrogen/Creatinine [Mass ratio] 17.6 mg/mg 10-20 [facility] Work Phone: [phone] Laboratory - Hematology and Cell countson 03-24-2022 Erythrocyte distribution width (RBC) [Entitic vol] 40.8 fL 35.1-43.9 [facility] Work Phone: [phone] Erythrocyte distribution width (RBC) [Ratio] 12.5 % 11.6-14.6 [facility] Work Phone: [phone] Immature granulocytes/100 WBC (Bld) 0.300 % 0.0-0.9 [facility] Work Phone: [phone] Comment on above: IG% - Immature Granu locytes (promyelocytes, myelocytes and metamyelocytes) > 1% indicates that a LEFT SHIFT is Present. MCH (RBC) [Entitic mass] 30.1 pg 27.0-32.0 [facility] Work Phone: [phone] Nucleated RBC/100 WBC (Bld) [Ratio] 0 % 0-5 [facility] Work Phone: [phone] MCHC Auto (RBC) [Mass/Vol]on 03-24-2022 MCHC (RBC) [Mass/Vol] 34.2 g/dL 32-36 [facility] Work Phone: [phone] Mucus LM Ql (Urine sed)on Mucus Ql (Urine sed) 0 SEEN /hpf [facility] Work Phone: [phone] Nitrite Test strip Ql (U)on 03-24-2022 Nitrite Ql (U) Negative Negative [facility] Work Phone: [phone] No Panel Informationon 03-24 Estimated Creatinine Clearance Calc 111.82 ml/min [facility] Work Phone: [phone] Estimated GFR (MDRD) Amer 133 mL/min >60 [facility] Work Phone: [phone] Comment on above: GFR Calc Estimated GFR (MDRD) Non-Af Amer 110 mL/min >60 [facility] Work Phone: Comment on above: Non- GFR Calc Platelets bldon 03-24-2022 Platelets (Bld) [#/Vol] 263 10*3/uL 150-450 [facility] Work Phone: Protein Test strip Ql (U)on 03-24-2022 Protein Ql (U) Negative Negative [facility] Work Phone: [phone] Serum or plasma albumin arnel urement (mass/volume)on 03-24-2022 Albumin [Mass/Vol] 3.6 g/dL 3.2-5.0 [facility] Work Phone: Serum or plasma calcium arnel urement (mass/volume)on 03-24-2022 Calcium [Mass/Vol] 9.2 mg/dL 8.5-10.1 [facility] Work Phone: Serum or plasma creatinine m easurement (mass/volume)on 03-24-2022 Creatinine [Mass/Vol] 0.68 mg/dL 0.55-1.02 [facility] Work Phone: Comment on above: The validity of the calculated GFR & GFRAA in patients over 70 years has not been determined. Clinical correlation is essential. Serum or plasma urea nitroge n measurement (mass/volume)on 03-24-2022 Urea nitrogen [Mass/Vol] 12 mg/dL 03-24 [facility] Work Phone: Squamous epithelial cells de tection in urine sediment by light microscopyon 03-24-2022 Epithelial cells.squamous LM Ql (Urine sed) 0 SEEN /hpf 5-10 [facility] Work Phone: Thin prep Papanicolaou smear with manual screeningon 03-24-2022 Thin prep Papanicolaou smear with manual screening 14 U/L 15-37 [facility] Work Phone: [phone] Thin prep Papanicolaou smear with manual screening 6 5-15 [facility] Work Phone: Urine blood detectionon 03-07 RBC Ql (U) Negative Negative [facility] Work Phone: RBC Ql (U) 0 SEEN /hpf 0-5 [facility] Work Phone: Urine clarityon 03-24-2022 Clarity (U) Clear Clear [facility] Work Phone: Urine color determinationon 03-24-2022 Color (U) Yellow Yellow [facility] Work Phone: Urine glucose detectionon Glucose Ql (U) Normal mg/dl Normal [facility] [facility] Work Phone: Urine leukocyte esterase det ection by dipstickon 03-24-2022 Leukocyte esterase Test strip Ql (U) Negative Negative [facility] Work Phone: Urine pHon 03-24-2022 pH (U) 6.0 [pH] 5.0 - 8.0 [facility] Work Phone: Urine sediment bacteria coun t by microscopy (number/high power field)on 03-24-2022 Bacteria LM.HPF (Urine sed) [#/Area] 2 /[HPF] None Seen [facility] Work Phone: Urine specific gravity measu rementon 03-24-2022 Specific gravity (U) [Rel density] 1.015 1.002-1.030 [facility] Work Phone: Urobilinogen Auto test strip Ql (U)on 03-24-2022 Urobilinogen Ql (U) Normal mg/dl Normal [facility] Work Phone: Blocker Automatic Cytology Reporton 2019 Blocker Automatic Cytology Report . Pathology Reports Accession: Collected Date/Time: Received Date/Time: Pathologist: [id number] 04/16/2020 08:22 EDT 04/18/2020 18:00 EDT Blocker [employer] Cytology Report SPECIMEN: Specimen Description: Liquid Prep Reflex ASCUS+ Specimen: Cervical/Endocervical Screening or Diagnostic: Screening RELEVANT HISTORY: LMP: unknown [id number] SPECIMEN ADEQUACY: SATISFACTORY FOR EVALUATION ENDOCERVICAL/TRANSFORM ATIONAL ZONE COMPONENT ABSENT/INSUFFICIENT INTERPRETATION/RESULTS : NEGATIVE FOR INTRAEPITHELIAL LESION OR MALIGNANCY COMMENT: This Pap Test was successfully processed and evaluated with the assistance of the [employer] ThinPrep Test Imaging System. Electronically Signed by Pathology report verified by [facility] Screened by: KK Electronically signed by Kira GUTHRIE (ASC) Sign-Out Date: 05/01/2020 10:21 Performing Lab: [facility], [address] [place] [address] Disclaimer The Pap test is a screening test for cervical cancer. As evidenced by published data, it is subject to both inherent false negative and false positive results. Your patient's results should be interpreted in context with pertinent clinical history including gynecological examination. Normal [facility] ([place]) Comment on above: Performed By: #### G YCR #### [place] [address] HEP B SURF AB QUANT [QUEST]o n 06-27-2018 HEP B SURF AB QUANT [QUEST] Normal [facility] Comment on above: Result Comment: _HEP B SURF AB QUANT_HEPATITIS B SURFACE ANTIBODY IMMUNITY, (QUANT)Reported: 06/26/2018 20:35 Status=F TEST RESULT FLAG RANGE UNITS HEP B SURF AB IMMUNITY,QN >1000 >=10 mIU/mL 06/26/18.2046.rfl.COMPLETE.AMRR .5193-8PATIENT HAS IMMUNITY TO HEPATITIS B VIRUS.For more information on this test, go to:http://education.Attendify.SkemA/faq/[email or web address] Performed by [employer]) ServicesMattie,[employer] [facility],[address] [place] [id number] Avila M.D., Ph.D., Director of [phone], CLIA [id number] Performed By: #### 2 [id number] ####[facility],[address] [place] [address] NICOTINE AND METABOLITE URIN E [QUEST]on 10-13-2017 NICOTINE AND METABOLITE URINE [QUEST] Normal [facility] Comment on above: Result Comment: _NIC OTINE AND METABOLITE,URINE_NICOTINE AND COTININE, LC/MS/MS, URINEReported: 10/13/2017 12:58 Status=F TEST RESULT FLAG RANGE UNITS NICOTINE, URINE <2 ng/mL 10/13/17.1310.rfl.COMPLETE.AMRR .3854-7COTININE, URINE <2 ng/mL 10/13/17.1310.rfl.COMPLETE.AMRR .69123-0 Reference Range, Urine(ng/mL): Nicotine Smokers: 200-700 Nonsmokers: <=17 Cotinine Smokers: 300-1300 Nonsmokers: <=20Individuals exposed to second-hand or passive tobaccosmoke may demonstrate concentrations of nicotine andcotinine greater than those indicated for non-smokers.Test Performed by Mattie Ervin,[employer] [facility],[address] [place] [address] [id number] Avila M.D., Ph.D., Director of [phone], CLIA [id number] Performed By: #### 2 [id number] ####[facility],[address] [place] [address] MMR PROFILEon 10-12-2017 Protein mass conc Normal [facility] Comment on above: Result Comment: _MMR PROFILE_MMR (IGG) PANEL (MEASLES, MUMPS, RUBELLA)Reported: 10/12/2017 09:02 Status=F TEST RESULT FLAG RANGE UNITS MEASLES ANTIBODY (IGG) 107.00 >29.99 AU/mL 10/12/17.rfl.COMPLETE.AMRR .5244-9AU/mL Interpretation===== <25.00 Zgcynrtl26.00 - 29.99 Equivocal>29.99 PositiveA positive result indicates that the patient hasantibody to measles virus. It does not differentiatebetween an active or past infection. The clinicaldiagnosis must be interpreted in conjunction withclinical signs and symptoms of the patient.MUMPS VIRUS ANTIBODY 37.30 >10.99 AU/mL 10/12/17.rfl.COMPLETE.AMRR .18182-0(IGG) AU/mL Interpretation < 9.00 Negative 9.00 - [...] or current infection withRubella virus.Test Performed by [facility]) Services[facility],[address] [place] [id number] Avila M.D., Ph.D., Director of [phone], [facility] [id number] Performed By: #### 2 [id number] ####[facility],[address] [place] [address] HEP B SURF AB QUANT [QUEST]o n 10-11-2017 HEP B SURF AB QUANT [QUEST] Normal [facility] Comment on above: Result Comment: _HEP B SURF AB QUANT_HEPATITIS B SURFACE ANTIBODY IMMUNITY, (QUANT)Reported: 10/11/2017 19:47 Status=F TEST RESULT FLAG RANGE UNITS HEP B SURF AB IMMUNITY,QN 6 L >=10 mIU/mL 10/11/17.1959.rflJARRELL.AMRR .5193-8PATIENT DOES NOT HAVE IMMUNITY TO HEPATITIS B VIRUS.For more information on this test, go to:http://education.Attendify.SkemA/faq/WDP164Kdll Performed by Mattie Ervin,[employer] [facility],[address] [place] [address] [id number] Avila M.D., Ph.D., Director of [phone], [facility] [id number] Performed By: #### 2 56395 ####[facility],[address] [place] [address] DRUG SCREEN URINE MEDICon AMPHETAMINES Negative [facility] Comment on above: Performed By: #### 2 91711 ####[facility],[address] [place] [address] B-DIAZEPINES Negative [facility] Comment on above: Performed By: #### 2 42647 ####[facility],[address] [place] [address] BARBITURATES Negative [facility] Comment on above: Performed By: #### 2 21671 ####[facility],[address] [place] [address] COCAINE Negative [facility] Comment on above: Performed By: #### 2 80995 ####[facility],[address] [place] [address] DRUG SCREEN URINE MEDIC Normal [facility] Comment on above: Result Comment: DRUG SCREEN - URINE Performed By: #### 2 27071 ####[facility],[address] [place] [address] METHADONE Negative [facility] Comment on above: Performed By: #### 2 76607 ####[facility],[address] [place] [address] OPIATES Negative [facility] Comment on above: Performed By: #### 2 37396 ####[facility],[address] [place] [address] PCP Negative Normal [facility] Comment on above: Performed By: #### 2 51624 ####[facility],[address] [place] [address] TCA Negative Normal [facility] Comment on above: Performed By: #### 2 68587 ####[facility],[address] [place] [address] THC Negative Normal [facility] Comment on above: Result Comment: DOMINGA ENTS RECEIVING PROTON PUMP INHIBITORS MAY DEMONSTRATE FALSE POSITIVETHC/CANNABINOID RESULTS. AN ALTERNATIVE CONFIRMATORY METHOD SHOULD BE CONSIDEREDTO VERIFY POSITIVE RESULTS. Performed By: #### 2 38874 ####[facility],[address] [place] [address] GLUCOSEon 10-08-2017 Glucose mass conc 90 mg/dL Normal 74 - 106 [facility] Comment on above: Performed By: #### 2 74934 ####[facility],[address] [place] [address] LIPID PROFILEon 10-08-2017 Cholesterol in HDL mass conc 48 mg/dL Normal 40 - 60 [facility] Comment on above: Performed By: #### 2 63319 ####[facility],[address] [place] [address] Cholesterol in LDL mass conc 124 mg/dl Normal 0 - 129 [facility] Comment on above: Performed By: #### 2 79429 ####[facility],[address] [place] [address] Cholesterol mass conc 199 mg/dL Normal 0 - 200 [facility] Comment on above: Performed By: #### 2 82777 ####[facility],[address] [place] [address] Cholesterol.total/Onofre sterol in HDL mass ratio 4.1 {ratio} Normal 0.0 - 5.0 [facility] Comment on above: Performed By: #### 2 75247 ####[facility],[address] [place] [address] Protein mass conc Normal [facility] Comment on above: Result Comment: LIPI D PROFILE Performed By: #### 2 86485 ####[facility],[address] [place] [address] Triglyceride mass conc 136 mg/dL Normal 0 - 150 [facility] Comment on above: Performed By: #### 2 56327 ####[facility],[address] [place] [address] Culture, urine Bacteria identified Cx Nom (U) GNR 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 Allyssa Velarde DO Work Phone: [facility] 04-17-2025 09:43-0400 Body mass index (BMI) [Ratio] 28.6 kg/m2 Dr. Allyssa Velarde DO Work Phone: [facility] 04-17-2025 09:43-0400 Body weight 75.[address] Allyssa Velarde DO Work Phone: [facility] 04-17-2025 09:43-0400 Diastolic blood pressure 84 mm[Hg] Dr. Allyssa Velarde DO Work Phone: [facility] 04-17-2025 09:43-0400 Systolic blood pressure 125 mm[Hg] Dr. Allyssa Velarde DO Work Phone: [facility] 04-13-2025 10:04-0400 Body height 162.[address] Allyssa Velarde DO Work Phone: [facility] 04-13-2025 10:04-0400 Body mass index (BMI) [Ratio] 29.2 kg/m2 Dr. Allyssa Velarde DO Work Phone: [facility] 04-13-2025 10:04-0400 Body weight 77.[address] Allyssa Velarde DO Work Phone: [facility] 04-13-2025 10:04-0400 Diastolic blood pressure 83 mm[Hg] Dr. Allyssa Velarde DO Work Phone: [facility] 04-13-2025 10:04-0400 Systolic blood pressure 116 mm[Hg] Dr. Allyssa Velarde DO Work Phone: [facility] 04-03-2025 10:21-0400 Body height 162.[address] Allyssa Velarde DO Work Phone: [facility] 04-03-2025 10:21-0400 Body mass index (BMI) [Ratio] 28.3 kg/m2 Dr. Allyssa Velarde DO Work Phone: [facility] 04-03-2025 10:21-0400 Body weight 74.[address] Allyssa Velarde DO Work Phone: [facility] 04-03-2025 10:21-0400 Diastolic blood pressure 74 mm[Hg] Dr. Allyssa Velarde DO Work Phone: [facility] 04-03-2025 10:21-0400 Systolic blood pressure 116 mm[Hg] Dr. Allyssa Velarde DO Work Phone: [facility] 03-30-2025 14:46-0400 Body height 162.[address] Allyssa Velarde DO Work Phone: [facility] 03-30-2025 14:46-0400 Body mass index (BMI) [Ratio] 28.3 kg/m2 Dr. Allyssa Velarde DO Work Phone: [facility] 03-30-2025 14:46-0400 Body weight 74.[address] Allyssa Velarde DO Work Phone: [facility] 03-30-2025 14:46-0400 Diastolic blood pressure 68 mm[Hg] Dr. Allyssa Velarde DO Work Phone: [facility] 03-30-2025 14:46-0400 Systolic blood pressure 100 mm[Hg] Dr. Allyssa Velarde DO Work Phone: [facility] 03-26-2025 08:56-0400 Body height 162.[address] Allyssa Velarde DO Work Phone: [facility] 03-26-2025 08:56-0400 Body mass index (BMI) [Ratio] 27.8 kg/m2 Dr. Allyssa Velarde DO Work Phone: [facility] 03-26-2025 08:56-0400 Body temperature 97.7 [degF] Dr. Allyssa Velarde DO Work Phone: [facility] 03-26-2025 08:56-0400 Body weight 73.[address] Allyssa Velarde DO Work Phone: [facility] 03-26-2025 08:56-0400 Diastolic blood pressure 62 mm[Hg] Dr. Allyssa Velarde DO Work Phone: [facility] 03-26-2025 08:56-0400 Heart rate 88 /min Dr. Allyssa Velarde DO Work Phone: [facility] 03-26-2025 08:56-0400 Respiratory rate 16 /min Dr. Allyssa Velarde DO Work Phone: [facility] 03-26-2025 08:56-0400 SaO2% (BldA) [Mass fraction] 96 % Dr. Allyssa Velarde DO Work Phone: [facility] 03-26-2025 08:56-0400 Systolic blood pressure 100 mm[Hg] Dr. Allyssa Velarde DO Work Phone: [facility] 03-20-2025 09:36-0400 Body height 162.[address] Allyssa Velarde DO Work Phone: [facility] 03-20-2025 09:36-0400 Body mass index (BMI) [Ratio] 27.8 kg/m2 Dr. Allyssa Velarde DO Work Phone: [facility] 03-20-2025 09:36-0400 Body weight 73.[address] Allyssa Velarde DO Work Phone: [facility] 03-20-2025 09:36-0400 Diastolic blood pressure 64 mm[Hg] Dr. Allyssa Velarde DO Work Phone: [facility] 03-20-2025 09:36-0400 Systolic blood pressure 98 mm[Hg] Dr. Allyssa Velarde DO Work Phone: [facility] 03-08-2025 10:30-0400 Body height 162.[address] Allyssa Velarde DO Work Phone: [facility] 03-08-2025 10:26-0400 Body mass index (BMI) [Ratio] 27.8 kg/m2 Dr. Allyssa Velarde DO Work Phone: [facility] 03-08-2025 10:26-0400 Body weight 73.[address] Allyssa Velarde DO Work Phone: [facility] 03-08-2025 10:26-0400 Diastolic blood pressure 66 mm[Hg] Dr. Allyssa Velarde DO Work Phone: [facility] 03-08-2025 10:26-0400 Systolic blood pressure 97 mm[Hg] Dr. Allyssa Velarde DO Work Phone: [facility] 02-24-2025 11:08-0400 Body height 162.[address] Allyssa Velarde DO Work Phone: [facility] 02-24-2025 11:08-0400 Body mass index (BMI) [Ratio] 28.1 kg/m2 Dr. Allyssa Velarde DO Work Phone: [facility] 02-24-2025 11:08-0400 Body weight 74.[address] Allyssa Velarde DO Work Phone: [facility] 02-24-2025 11:08-0400 Diastolic blood pressure 79 mm[Hg] Dr. Allyssa Velarde DO Work Phone: [facility] 02-24-2025 11:08-0400 Systolic blood pressure 126 mm[Hg] Dr. Allyssa Velarde DO Work Phone: [facility] 02-06-2025 11:11-0400 Body height 162.[address] Allyssa Velarde DO Work Phone: [facility] 02-06-2025 11:11-0400 Body mass index (BMI) [Ratio] 27.8 kg/m2 Dr. Allyssa Velarde DO Work Phone: [facility] 02-06-2025 11:11-0400 Body weight 73.[address] Allyssa Velarde DO Work Phone: [facility] 02-06-2025 11:11-0400 Diastolic blood pressure 75 mm[Hg] Dr. Allyssa Velarde DO Work Phone: [facility] 02-06-2025 11:11-0400 Systolic blood pressure 112 mm[Hg] Dr. Allyssa Velarde DO Work Phone: [facility] 01-23-2025 10:17-0400 Body height 162.[address] Allyssa Velarde DO Work Phone: [facility] 01-23-2025 10:17-0400 Body mass index (BMI) [Ratio] 27.7 kg/m2 Dr. Allyssa Velarde DO Work Phone: [facility] 01-23-2025 10:17-0400 Body weight 73.[address] Allyssa Velarde DO Work Phone: [facility] 01-23-2025 10:17-0400 Diastolic blood pressure 75 mm[Hg] Dr. Allyssa Velarde DO Work Phone: [facility] 01-23-2025 10:17-0400 Systolic blood pressure 107 mm[Hg] Dr. Allyssa Velarde DO Work Phone: [facility] 12-28-2024 14:53-0400 Body mass index (BMI) [Ratio] 27.3 kg/m2 Dr. Allyssa Velarde DO Work Phone: [facility] 12-28-2024 14:53-0400 Body weight 72.[address] Allyssa Velarde DO Work Phone: [facility] 12-28-2024 14:53-0400 Diastolic blood pressure 74 mm[Hg] Dr. Allyssa Velarde DO Work Phone: [facility] 12-28-2024 14:53-0400 Systolic blood pressure 110 mm[Hg] Dr. Allyssa Velarde DO Work Phone: [facility] 12-02-2024 09:59-0400 Body mass index (BMI) [Ratio] 27.4 kg/m2 Dr. Allyssa Velarde DO Work Phone: [facility] 12-02-2024 09:59-0400 Body weight 72.[address] Allyssa Velarde DO Work Phone: [facility] 12-02-2024 09:59-0400 Diastolic blood pressure 70 mm[Hg] Dr. Allyssa Velarde DO Work Phone: [facility] 12-02-2024 09:59-0400 Systolic blood pressure 118 mm[Hg] Dr. Allyssa Velarde DO Work Phone: [facility] 11-19-2024 00:00-0400 Heart rate 81 /min Dr. Allyssa Velarde DO Work Phone: [facility] 11-19-2024 00:00-0400 Respiratory rate 21 /min Dr. Allyssa Velarde DO Work Phone: [facility] 11-19-2024 00:00-0400 SaO2% (BldA) [Mass fraction] 97 % Dr. Allyssa Velarde DO Work Phone: [facility] 11-18-2024 22:00-0400 Diastolic blood pressure 66 mm[Hg] Dr. Allyssa Velarde DO Work Phone: [facility] 11-18-2024 22:00-0400 Systolic blood pressure 107 mm[Hg] Dr. Allyssa Velarde DO Work Phone: [facility] 11-18-2024 18:02-0400 Body height 162.[address] Allyssa Velarde DO Work Phone: [facility] 11-18-2024 18:02-0400 Body mass index (BMI) [Ratio] 26.6 kg/m2 Dr. Allyssa Velarde DO Work Phone: [facility] 11-18-2024 18:02-0400 Body temperature 98 [degF] Dr. Allyssa Velarde DO Work Phone: [facility] 11-18-2024 18:02-0400 Body weight 70.[address] Allyssa Velarde DO Work Phone: [facility] 11-18-2024 08:37-0400 Body temperature 97.39 [degF] Wenceslao Short Jr., COSTING ANALYST.BANKING SERVICES CLERK Work Phone: [facility] 11-18-2024 08:37-0400 Body weight 70.94 kg Wenceslao Short Jr., COSTING ANALYST.BANKING SERVICES CLERK Work Phone: [facility] 11-18-2024 08:37-0400 Diastolic blood pressure 71 mm[Hg] Wenceslao Short Jr., COSTING ANALYST.BANKING SERVICES CLERK Work Phone: [facility] 11-18-2024 08:37-0400 Heart rate 110 /min Wenceslao Short Jr., COSTING ANALYST.BANKING SERVICES CLERK Work Phone: [facility] 11-18-2024 08:37-0400 Respiratory rate 18 /min Wenceslao Short Jr., COSTING ANALYST.BANKING SERVICES CLERK Work Phone: [facility] 11-18-2024 08:37-0400 SaO2% (BldA) [Mass fraction] 99 % Wenceslao Short Jr., COSTING ANALYST.BANKING SERVICES CLERK Work Phone: [facility] 11-18-2024 08:37-0400 Systolic blood pressure 106 mm[Hg] Wenceslao Short Jr., COSTING ANALYST.BANKING SERVICES CLERK Work Phone: [facility] 11-02-2024 14:21-0500 Body mass index (BMI) [Ratio] 27.4 kg/m2 Dr. Allyssa Velarde DO Work Phone: [facility] 11-02-2024 14:21-0500 Body weight 72.[address] Allyssa Velarde DO Work Phone: [facility] 11-02-2024 14:21-0500 Diastolic blood pressure 85 mm[Hg] Dr. Allyssa Velarde DO Work Phone: [facility] 11-02-2024 14:21-0500 Systolic blood pressure 122 mm[Hg] Dr. Allyssa Velarde DO Work Phone: [facility] 10-05-2024 12:36-0500 Body mass index (BMI) [Ratio] 28.1 kg/m2 Dr. Allyssa Velarde DO Work Phone: [facility] 10-05-2024 12:36-0500 Body weight 74.[address] Allyssa Velarde DO Work Phone: [facility] 10-05-2024 12:36-0500 Diastolic blood pressure 75 mm[Hg] Dr. Allyssa Velarde DO Work Phone: [facility] 10-05-2024 12:36-0500 Systolic blood pressure 120 mm[Hg] Dr. Allyssa Velarde DO Work Phone: [facility] 09-26-2023 12:12-0500 Body temperature 97.8 [degF] Dr. Allyssa Velarde Work Phone: [facility] 09-26-2023 12:12-0500 Heart rate 74 /min Dr. Allyssa Velarde Work Phone: [facility] 09-26-2023 12:12-0500 Respiratory rate 16 /min Dr. Allyssa Velarde Work Phone: [facility] 09-26-2023 12:12-0500 SaO2% (BldA) [Mass fraction] 98 % Dr. Allyssa Velarde Work Phone: [facility] 09-26-2023 11:19-0500 Diastolic blood pressure 71 mm[Hg] Dr. Allyssa Velarde Work Phone: [facility] 09-26-2023 11:19-0500 Systolic blood pressure 136 mm[Hg] Dr. Allyssa Velarde Work Phone: [facility] 09-24-2023 10:17-0500 Body height 162.[address] Allyssa Velarde Work Phone: [facility] 09-24-2023 10:17-0500 Body mass index (BMI) [Ratio] 31.4 kg/m2 Dr. Allyssa Velarde Work Phone: [facility] 09-24-2023 10:17-0500 Body weight 83.[address] Allyssa Velarde Work Phone: [facility] 09-23-2023 14:24-0500 Body mass index (BMI) [Ratio] 31.1 kg/m2 Dr. Allyssa Velarde Work Phone: [facility] 09-23-2023 14:24-0500 Body weight 82.[address] Allyssa Velarde Work Phone: [facility] 09-23-2023 14:24-0500 Diastolic blood pressure 86 mm[Hg] Dr. Allyssa Velarde Work Phone: [facility] 09-23-2023 14:24-0500 Systolic blood pressure 128 mm[Hg] Dr. Allyssa Velarde Work Phone: [facility] 09-18-2023 12:12-0500 Body mass index (BMI) [Ratio] 31.2 kg/m2 Dr. Allyssa Velarde Work Phone: [facility] 09-18-2023 12:12-0500 Body weight 82.[address] Allyssa Velarde Work Phone: [facility] 09-18-2023 12:12-0500 Diastolic blood pressure 84 mm[Hg] Dr. Allyssa Velarde Work Phone: [facility] 09-18-2023 12:12-0500 Systolic blood pressure 124 mm[Hg] Dr. Allyssa Velarde Work Phone: [facility] 09-10-2023 14:46-0500 Body mass index (BMI) [Ratio] 31.2 kg/m2 Dr. Allyssa Velarde Work Phone: [facility] 09-10-2023 14:46-0500 Body weight 82.[address] Allyssa Velarde Work Phone: [facility] 09-10-2023 14:46-0500 Diastolic blood pressure 79 mm[Hg] Dr. Allyssa Velarde Work Phone: [facility] 09-10-2023 14:46-0500 Systolic blood pressure 118 mm[Hg] Dr. Allyssa Velarde Work Phone: [facility] 09-02-2023 08:28-0500 Body height 162.[address] Allyssa Velarde Work Phone: [facility] 09-02-2023 08:28-0500 Body mass index (BMI) [Ratio] 30.7 kg/m2 Dr. Allyssa Velarde Work Phone: [facility] 09-02-2023 08:28-0500 Body weight 81.24 kg Dr. Allyssa Velarde Work Phone: [facility] 09-02-2023 08:28-0500 Diastolic blood pressure 82 mm[Hg] Dr. Allyssa Velarde Work Phone: [facility] 09-02-2023 08:28-0500 Heart rate 86 /min Dr. Allyssa Velarde Work Phone: [facility] 09-02-2023 08:28-0500 Systolic blood pressure 126 mm[Hg] Dr. Allyssa Velarde Work Phone: [facility] 08-26-2023 14:09-0500 Body mass index (BMI) [Ratio] 30.6 kg/m2 Dr. Allyssa Velarde Work Phone: [facility] 08-26-2023 14:09-0500 Body weight 80.[address] Allyssa Velarde Work Phone: [facility] 08-26-2023 14:09-0500 Diastolic blood pressure 82 mm[Hg] Dr. Allyssa Velarde Work Phone: [facility] 08-26-2023 14:09-0500 Systolic blood pressure 126 mm[Hg] Dr. Allyssa Velarde Work Phone: [facility] 08-10-2023 10:54-0500 Body mass index (BMI) [Ratio] 29.7 kg/m2 Dr. Allyssa Velarde Work Phone: [facility] 08-10-2023 10:54-0500 Body weight 78.[address] Allyssa Velarde Work Phone: [facility] 08-10-2023 10:54-0500 Diastolic blood pressure 66 mm[Hg] Dr. Allyssa Velrade Work Phone: [facility] 08-10-2023 10:54-0500 Systolic blood pressure 108 mm[Hg] Dr. Allyssa Velarde Work Phone: [facility] 07-23-2023 16:07-0500 Body height 162.[address] Allyssa Velarde Work Phone: [facility] 07-23-2023 16:06-0500 Body mass index (BMI) [Ratio] 29.5 kg/m2 Dr. Allyssa Velarde Work Phone: [facility] 07-23-2023 16:06-0500 Body weight 78.[address] Allyssa Velarde Work Phone: [facility] 07-23-2023 16:06-0500 Diastolic blood pressure 79 mm[Hg] Dr. Allyssa Velarde Work Phone: [facility] 07-23-2023 16:06-0500 Systolic blood pressure 114 mm[Hg] Dr. Allyssa Velarde Work Phone: [facility] 07-20-2023 14:34-0500 Body temperature 98.3 [degF] Dr. Allyssa Velarde Work Phone: [facility] 07-20-2023 14:34-0500 Diastolic blood pressure 74 mm[Hg] Dr. Allyssa Velarde Work Phone: [facility] 07-20-2023 14:34-0500 Heart rate 103 /min Dr. Allyssa Velarde Work Phone: [facility] 07-20-2023 14:34-0500 Respiratory rate 12 /min Dr. Allyssa Velarde Work Phone: [facility] 07-20-2023 14:34-0500 SaO2% (BldA) [Mass fraction] 97 % Dr. Allyssa Velarde Work Phone: [facility] 07-20-2023 14:34-0500 Systolic blood pressure 118 mm[Hg] Dr. Allyssa Velarde Work Phone: [facility] 07-08-2023 13:51-0400 Body height 162.[address] Allyssa Velarde Work Phone: [facility] 07-08-2023 13:48-0400 Body mass index (BMI) [Ratio] 28.5 kg/m2 Dr. Allyssa Velarde Work Phone: [facility] 07-08-2023 13:48-0400 Body weight 75.[address] Allyssa Velarde Work Phone: [facility] 07-08-2023 13:48-0400 Diastolic blood pressure 73 mm[Hg] Dr. Allyssa Velarde Work Phone: [facility] 07-08-2023 13:48-0400 Systolic blood pressure 117 mm[Hg] Dr. Allyssa Velarde Work Phone: [facility] 06-10-2023 14:05-0400 Body mass index (BMI) [Ratio] 28.2 kg/m2 Dr. Allyssa Velarde Work Phone: [facility] 06-10-2023 14:05-0400 Body weight 74.[address] Allyssa Velarde Work Phone: [facility] 06-10-2023 14:05-0400 Diastolic blood pressure 78 mm[Hg] Dr. Allyssa Velarde Work Phone: [facility] 06-10-2023 14:05-0400 Systolic blood pressure 108 mm[Hg] Dr. Allyssa Velarde Work Phone: [facility] 05-13-2023 13:31-0400 Body height 162.[address] Allyssa Velarde Work Phone: [facility] 05-13-2023 13:31-0400 Body mass index (BMI) [Ratio] 27.3 kg/m2 Dr. Allyssa Velarde Work Phone: [facility] 05-13-2023 13:31-0400 Body weight 72.[address] Allyssa Velarde Work Phone: [facility] 05-13-2023 13:31-0400 Diastolic blood pressure 72 mm[Hg] Dr. Allyssa Velarde Work Phone: [facility] 05-13-2023 13:31-0400 Systolic blood pressure 118 mm[Hg] Dr. Allyssa Velarde Work Phone: [facility] 04-14-2023 10:07-0400 Body mass index (BMI) [Ratio] 26.6 kg/m2 Dr. Allyssa Velarde Work Phone: [facility] 04-14-2023 10:07-0400 Body weight 70.[address] Allyssa Velarde Work Phone: [facility] 04-14-2023 10:07-0400 Diastolic blood pressure 74 mm[Hg] Dr. Allyssa Velarde Work Phone: [facility] 04-14-2023 10:07-0400 Systolic blood pressure 108 mm[Hg] Dr. Allyssa Velarde Work Phone: [facility] 03-16-2023 16:06-0400 Body height 162.[address] Allyssa Velarde Work Phone: [facility] 03-16-2023 16:06-0400 Body mass index (BMI) [Ratio] 27 kg/m2 Dr. Allyssa Velarde Work Phone: [facility] 03-16-2023 16:06-0400 Body weight 71.[address] Allyssa Velarde Work Phone: [facility] 03-16-2023 16:06-0400 Diastolic blood pressure 73 mm[Hg] Dr. Allyssa Velarde Work Phone: [facility] 03-16-2023 16:06-0400 Systolic blood pressure 119 mm[Hg] Dr. Allyssa Velarde Work Phone: [facility] 02-19-2023 15:09-0400 Body height 162.[address] Allyssa Velarde Work Phone: [facility] 02-19-2023 15:09-0400 Body mass index (BMI) [Ratio] 26.9 kg/m2 Dr. Allyssa Velarde Work Phone: [facility] 02-19-2023 15:09-0400 Body weight 71.[address] Allyssa Velarde Work Phone: [facility] 02-19-2023 15:09-0400 Diastolic blood pressure 81 mm[Hg] Dr. Allyssa Velarde Work Phone: [facility] 02-19-2023 15:09-0400 Systolic blood pressure 123 mm[Hg] Dr. Allyssa Velarde Work Phone: [facility] 11-27-2022 09:42-0400 Body mass index (BMI) [Ratio] 27.6 kg/m2 Dr. Allyssa Velarde Work Phone: [facility] 11-27-2022 09:42-0400 Body weight 73.[address] Allyssa Velarde Work Phone: [facility] 11-27-2022 09:42-0400 Diastolic blood pressure 82 mm[Hg] Dr. Allyssa Velarde Work Phone: [facility] 11-27-2022 09:42-0400 Systolic blood pressure 122 mm[Hg] Dr. Allyssa Velarde Work Phone: [facility] 2022 17:17-0400 Body temperature 98.8 [degF] Dr. Allyssa Velarde Work Phone: [facility] Work Phone: 2022 17:17-0400 Diastolic blood pressure 82 mm[Hg] Dr. Allyssa Velarde Work Phone: [facility] Work Phone: 2022 17:17-0400 Heart rate 85 /min Dr. Allyssa Velarde Work Phone: [facility] Work Phone: 2022 17:17-0400 Respiratory rate 16 /min Dr. Allyssa Velarde Work Phone: [facility] Work Phone: 2022 17:17-0400 SaO2% (BldA) [Mass fraction] 100 % Dr. Allyssa Velarde Work Phone: [facility] Work Phone: 2022 17:17-0400 Systolic blood pressure 113 mm[Hg] Dr. Allyssa Velarde Work Phone: [facility] Work Phone: 2022 12:50-0400 Body height 165.[address] Allyssa Velarde Work Phone: [facility] Work Phone: 2022 12:50-0400 Body mass index (BMI) [Ratio] 24.2 kg/m2 Dr. Allyssa Velarde Work Phone: [facility] Work Phone: 2022 12:50-0400 Body weight [address] Allyssa Velarde Work Phone: [facility] Work Phone: 03-28-2022 08:05-0400 Body mass index (BMI) [Ratio] 25 kg/m2 Dr. Allyssa Velarde Work Phone: [facility] Work Phone: 03-28-2022 08:05-0400 Body weight 68.[address] Allyssa Velarde Work Phone: [facility] Work Phone: 03-28-2022 08:05-0400 Diastolic blood pressure 80 mm[Hg] Dr. Allyssa Velarde Work Phone: [facility] Work Phone: 03-28-2022 08:05-0400 Respiratory rate 16 /min Dr. Allyssa Velarde Work Phone: [facility] Work Phone: 03-28-2022 08:05-0400 Systolic blood pressure 116 mm[Hg] Dr. Allyssa Velarde Work Phone: [facility] Work Phone: 03-24-2022 08:33-0400 Respiratory rate 16 /min Dr. Allyssa Velarde Work Phone: [facility] Work Phone: 03-24-2022 06:34-0400 Diastolic blood pressure 79 mm[Hg] Dr. Allyssa Velarde Work Phone: [facility] Work Phone: 03-24-2022 06:34-0400 Heart rate 83 /min Dr. Allyssa Velarde Work Phone: [facility] Work Phone: 03-24-2022 06:34-0400 SaO2% (BldA) [Mass fraction] 99 % Dr. Allyssa Velarde Work Phone: [facility] Work Phone: 03-24-2022 06:34-0400 Systolic blood pressure 114 mm[Hg] Dr. Allyssa Velarde Work Phone: [facility] Work Phone: 03-24-2022 04:52-0400 Body height 165.[address] Allyssa Velarde Work Phone: [facility] Work Phone: 03-24-2022 04:52-0400 Body mass index (BMI) [Ratio] 25.8 kg/m2 Dr. Allyssa Velarde Work Phone: [facility] Work Phone: 03-24-2022 04:52-0400 Body temperature 99.1 [degF] Dr. Allyssa Velarde Work Phone: [facility] Work Phone: 03-24-2022 04:52-0400 Body weight 70.[address] Allyssa Velarde Work Phone: [facility] Work Phone: 03-04-2022 08:01-0400 Body height 165.[address] Allyssa Velarde Work Phone: [facility] Work Phone: 03-04-2022 08:01-0400 Body mass index (BMI) [Ratio] 23.9 kg/m2 Dr. Allyssa Velarde Work Phone: [facility] Work Phone: 03-04-2022 08:01-0400 Body weight 65.[address] Allyssa Velarde Work Phone: [facility] Work Phone: 03-04-2022 08:01-0400 Diastolic blood pressure 84 mm[Hg] Dr. Allyssa Velarde Work Phone: [facility] Work Phone: 03-04-2022 08:01-0400 Systolic blood pressure 132 mm[Hg] Dr. Allyssa Velarde Work Phone: [facility] Work Phone: Encounters Encounter Date Encounter Type Care Provider Facility Start: 04-24-2025 ambulatory Allyssa chapmany:[facility] Start: 04-17-2025 End: 04-17-[address] Crissy Rodas MD -[facility] Work Phone: Start: 04-17-2025 End: 04-17-[address] Allyssa Velarde DO Work Phone: -[facility] Start: 04-13-2025 End: 04-13-[address] Farrah Manning DO -[facility] Work Phone: Start: 04-13-2025 End: 04-13-[address] Allyssa Velarde DO Work Phone: -[facility] Start: 04-03-2025 End: 04-03-2025 Patient encounter procedure Corina Daniel CNM -[facility] Work Phone: Start: 04-03-2025 End: 04-03-[address] Allyssa Velarde DO Work Phone: -[facility] Start: 03-30-2025 End: 03-30-[address] Allyssa Velarde DO Work Phone: -Laboratory Specimen Start: 03-30-2025 End: 03-30-2025 Patient encounter procedure Corina Daniel CNM -Laboratory Specimen Work Phone: Start: 03-30-2025 End: 03-30-2025 Patient encounter procedure Corina Daniel CNM -[facility] Work Phone: Start: 03-30-2025 End: 03-30-[address] Allyssa Velarde DO Work Phone: -[facility] Start: 03-30-2025 End: 03-30-2025 ambulatory Allyssa Velarde Facility:[facility] Start: 03-28-2025 ambulatory Allyssa Velarde Facil ity:[facility] Start: 03-26-2025 End: 03-26-2025 [facility] Work Phone: Start: 03-26-2025 End: 03-26-[address] Allyssa Velarde DO Work Phone: [facility] Start: 03-20-2025 End: 03-20-2025 Patient encounter procedure Ida REGALADO -[facility] Work Phone: Start: 03-20-2025 End: 03-20-[address] Allyssa Velarde DO Work Phone: -[facility] Start: 03-20-2025 End: 03-20-2025 ambulatory Allyssa Velarde Facility:[facility] Start: 03-08-2025 End: 03-08-[address] Farrah Manning DO -[facility] Work Phone: Start: 03-08-2025 End: 03-08-[address] Allyssa Velarde DO Work Phone: -[facility] Start: 02-24-2025 End: 02-24-[address] Crissy Rodas MD -[facility] Work Phone: Start: 02-24-2025 End: 02-24-[address] Allyssa Velarde DO Work Phone: [facility] Work Phone: Start: 02-06-2025 End: 02-06-2025 Patient encounter procedure Corina Daniel CNM -[facility] Work Phone: Start: 02-06-2025 End: 02-06-[address] Allyssa Velarde DO Work Phone: [facility] Work Phone: Start: 01-23-2025 End: 01-23-2025 Patient encounter procedure Corina Daniel CNM -[facility] Work Phone: Start: 01-23-2025 End: 01-23-[address] Allyssa Velarde DO Work Phone: [facility] Work Phone: Start: 01-23-2025 End: 01-23-2025 ambulatory Farrah Manning Facility:[facility] Start: 12-28-2024 End: 12-28-2024 Patient encounter procedure Ida REGALADO -[facility] Work Phone: Start: 12-28-2024 End: 12-28-2024 ambulatory Allyssa Velarde [facility] Start: 12-28-2024 End: 12-28-2024 ambulatory Farrah Manning Facility:[facility] Start: 12-26-2024 End: 12-26-2024 ambulatory ALLYSSA VELARDE [facility] Start: 12-02-2024 End: 12-02-2024 Patient encounter procedure Ida REGALADO -[facility] Work Phone: Start: 12-02-2024 End: 12-02-2024 ambulatory Allyssa Velarde Facility:[facility] Start: 11-28-2024 End: 11-28-2024 ambulatory FARRAH MCKEON [facility] Start: 11-19-2024 End: 11-19-2024 Follow-up encounter Wenceslao Short APRN.[employer]ANKING SERVICES CLERK Work Phone: [facility] Comment on above: Results Start: 11-19-2024 End: 11-19-2024 Telephone encounter Wenceslao Short APRN.BANKING SERVICES CLERK Work Phone: [facility] Start: 11-18-2024 End: 11-19-2024 Emergency department patient visit Dr. Allyssa Velarde DO Work Phone: -Emergency Department Work Phone: Start: 11-18-2024 End: 11-18-2024 Patient encounter procedure Wenceslao Short APRN.BANKING SERVICES CLERK Work Phone: [facility] Comment on above: Congestion of nasal sinus (Primary Dx); Nausea and vomiting, unspecified vomiting type Start: 11-18-2024 End: 11-18-2024 ambulatory ALLYSSA VELARDE Facility:[id number] Start: 11-02-2024 End: 11-02-[address] Crissy Rodas MD -[facility] Work Phone: Start: 11-02-2024 End: 11-02-2024 ambulatory Allyssa Velarde Facility:[facility] Start: 10-13-2024 End: 10-13-[address] Farrah Manning DO -Laboratory Work Phone: Start: 10-13-2024 End: 10-13-2024 ambulatory Farrah Manning Facility:[facility] Start: 10-05-2024 End: 10-05-[address] Farrah Manning DO -Laboratory, Specimen Work Phone: Start: 10-05-2024 End: 10-05-[address] Farrah Manning DO -[facility] Work Phone: Start: 10-05-2024 End: 10-05-2024 ambulatory Allyssa Velarde Facility[place] Start: 10-05-2024 End: 10-05-2024 ambulatory Allyssa Velarde Facility:[facility] Start: 09-26-2023 Non-patient / Non-visit Dr. Allyssa Velrade Work Phone: [facility] Start: 09-25-2023 Non-patient / Non-visit Dr. Allyssa Velarde Work Phone: [facility] Start: 09-24-2023 Non-patient / Non-visit Dr. Allyssa Velarde Work Phone: [facility] Start: 09-24-2023 End: 09-26-2023 Evaluation and management of inpatient Dr. Allyssa Velarde Work Phone: [facility] Work Phone: Start: 09-23-2023 End: 09-23-[address] Allyssa Velarde Work Phone: [facility] Work Phone: Start: 09-18-2023 End: 09-18-[address] Allyssa Velarde Work Phone: [facility] Work Phone: Start: 09-10-2023 End: 09-10-[address] Allyssa Velarde Work Phone: [facility] Work Phone: Start: 09-10-2023 End: 09-10-[address] Allyssa Velarde Work Phone: [facility] Work Phone: Start: 09-02-2023 End: 09-02-[address] Allyssa Velarde Work Phone: [facility] Work Phone: Start: 09-02-2023 End: 09-02-[address] Allyssa Velarde Work Phone: [facility]-Laboratory, Specimen Work Phone: Start: 09-02-2023 End: 09-02-[address] Allyssa Velarde Work Phone: [facility] Work Phone: Start: 08-26-2023 End: 08-26-[address] Allyssa Velarde Work Phone: [facility] Work Phone: Start: 08-10-2023 End: 08-10-[address] Allyssa Velarde Work Phone: [facility] Work Phone: Start: 07-23-2023 End: 07-23-[address] Allyssa Velarde Work Phone: [facility] Work Phone: Start: 07-20-2023 End: 07-20-[address] Allyssa Velarde Work Phone: [facility] Work Phone: Start: 07-20-2023 End: 07-20-[address] Allyssa Velarde Work Phone: [facility] Work Phone: Start: 07-20-2023 End: 07-20-[address] [facility]arde [facility] Start: 07-08-2023 End: 07-08-[address] Allyssa Velarde Work Phone: [facility] Work Phone: Start: 07-04-2023 End: 07-04-[address] Allyssa Velarde Work Phone: [facility] Work Phone: Start: 07-04-2023 End: 07-04-[address] Allyss[facility] Velarde [facility] Start: 07-01-2023 End: 07-01-[address] [facility] Work Phone: Start: 06-10-2023 End: 06-10-[address] Allyssa Velarde Work [facility] Work Phone: Start: 06-10-2023 End: 06-10-[address] Allyssa Velarde Work Phone: [facility] Work Phone: Start: 06-10-2023 End: 06-10-[address] Allyssa Velarde Work Phone: [facility] Work Phone: Start: 05-13-2023 End: 05-13-[address] Allyssa Velarde Work Phone: [facility] Work Phone: Start: 05-13-2023 End: 05-13-[address] Allyssa Velarde Work Phone: [facility] Work Phone: Start: 05-13-2023 End: 05-13-[address] [facility] Velarde [facility] Work Phone: Start: 04-14-2023 End: 04-14-[address] Allyssa Velarde Work Phone: [facility] Work Phone: Start: 04-13-2023 End: 04-13-[address] Al[facility] Velarde [facility] Work Phone: Start: 03-16-2023 End: 03-16-[address] Allyssa Velarde Work Phone: [facility] Work Phone: Start: 03-16-2023 End: 03-16-[address] Allyss[facility] Velarde [facility] Work Phone: Start: 03-12-2023 End: 03-12-[address] Allyssa Velarde Work Phone: [facility] Work Phone: Start: 03-12-2023 End: 03-12-[address] Allyssa Velarde Work Phone: [facility]-Laboratory, Pavilion Start: 02-23-2023 End: 02-23-[address] Allyssa Velarde Work Phone: [facility] Start: 02-19-2023 End: 02-19-[address] Allyssa Velarde Work Phone: [facility] Work Phone: Start: 02-19-2023 End: 02-19-[address] Allyssa Velarde [facility] Start: 02-19-2023 End: 02-19-[address] Allyssa Velarde Work Phone: [facility] Start: 01-22-2023 End: 01-22-[address] Allyssa Velarde [facility] Start: 01-20-2023 End: 01-20-[address] Allyssa Velarde Work Phone[facility] Start: 11-27-2022 End: 11-27-[address] Allyssa Velarde Work Phone: [facility] Start: 11-19-2022 End: 11-19-[address] Allyssa Velarde Work Phone: [facility] Work Phone: Start: 11-19-2022 End: 11-19-[address] Allyssa Velarde Work [facility] Start: 11-17-2022 End: 11-17-[address] Allyssa Velarde Work Phone: [facility] Work Phone: Start: 11-17-2022 End: 11-17-[address] Allyssa Velarde Work Phone: [facility]-Laboratory, OP Pavilion Start: 09-30-2022 End: 09-30-[address] [facility] Start: 09-25-2022 End: 09-25-[address] Allyssa Velarde Work Phone: [facility] Start: 2022 Non-patient / Non-visit Dr. Allyssa Velarde Work Phone: [facility] Start: 2022 End: 2022 Admission to same day surgery center Dr[facility] Allyssa Velarde Work Phone: [facility] Start: 03-28-2022 End: 03-28-[address] Allyssa Velarde Work Phone: [facility] Start: 03-24-2022 End: 03-24-2022 Emergency department patient visit Dr. Allyssa Velarde Work Phone: [facility]-Emergency Department Start: 03-05-2022 End: 03-05-[address] Allyssa Velarde Work Phone: [facility] Start: 03-04-2022 End: 03-04-[address] Allyssa Velarde Work Phone: [facility] Start: 03-04-2022 End: 03-04-[address] Allyssa Velarde Work Phone: [facility] Start: 06-03-2018 Patient encounter [employer]ALTH EMPLOYEE [facility] Start: 10-08-2017 End: 10-08-2017 Patient encounter HEALTH EMPLOYEE [facility] Procedures Date Procedure Procedure Detail Performing [...] RSV Vaccine (1 - 1-dose 75+ series) [facility] Start: 08-26-2033 Urine microalbumin profile DTaP,Tdap,Td Vaccine (8 - Td or Tdap) [facility] Start: 03-20-2025 CBC W Auto Differential panel - Blood [facility] Start: 01-23-2025 CBC W Auto Differential panel - Blood [facility] Start: 01-23-2025 Measurement of glucose 2 hours after glucose challenge for glucose tolerance test [facility] Start: 01-23-2025 Serologic test for syphilis [facility] Start: 01-23-2025 [facility] Start: 11-18-2024 [facility] Start: 11-18-2024 [facility] Start: 11-18-2024 Bacteria identified in Urine by Culture Urine Culture [facility] Start: 05-08-2024 Covid-19 Vaccine ( season) Covid-19 Vaccine () [facility] Start: 09-26-2023 Patient discharge [facility] Start: 09-25-2023 Administration of medication [facility] Start: 09-25-2023 Application of ice collar, cap or bag [facility] Start: 09-25-2023 Catheterization of vein [facility] Start: 09-25-2023 Introduction of urinary catheter [facility] Start: 09-25-2023 Measuring intake and output [facility] Start: 09-25-2023 Notification of physician [facility] Start: 09-25-2023 Procedure discontinued [facility] Start: 09-25-2023 Provision of activity privileges [facility] Start: 09-25-2023 Vital signs measurements [facility] Start: 09-25-2023 [facility] Start: 09-24-2023 [facility] Start: 09-24-2023 Notification of physician [facility] Start: 09-24-2023 [facility] Start: 09-24-2023 Admission procedure [facility] Start: 2022 Patient discharge [facility] Work Phone: Start: 03-24-2022 [facility] Work Phone: Start: 2015 Screening for malignant neoplasm of cervix Cervical Cancer Screening [facility] Start: 2012 Anxiety Screening Anxiety Screening [facility] Start: 2012 Depression Screening Depression Screening [facility] Start: 2012 Hepatitis C screening Hepatitis C Screening [facility] Start: 2012 HIV screening HIV Screening [facility] Bacteria identified in Urine by Culture Urine Culture [facility] Work Phone: CBC W Auto Different ial panel - Blood [facility] CBC W Auto Different ial panel - Blood [facility] COVID & INFLUENZA A/ B & RSV PCR, ROUTINE COVID & INFLUENZA A/B & RSV PCR, ROUTINE Microbiology Routine Nausea and vomiting, unspecified vomiting type 11/18/2024 9:29 AM EDT [facility] Work Phone: Erythrocyte mean corpuscular volume determination [facility] Erythrocyte mean corpuscular volume determination [facility] Hematocrit [Volume Fraction] of Blood [facility] Hematocrit [Volume Fraction] of Blood [facility] Hemoglobin [Mass/vol ume] in Blood [facility] Hemoglobin [Mass/vol ume] in Blood [facility] Hepatitis B surface antigen measurement [facility] Hepatitis C antibody measurement [facility] HIV 1+2 Ab+HIV1 p24 Ag [Presence] in Serum or Plasma by Immunoassay [facility] Leukocytes [#/volume ] in Blood [facility] Leukocytes [#/volume ] in Blood [facility] Mean corpuscular hemoglobin concentration determination [facility] Mean corpuscular hemoglobin concentration determination [facility] Mean corpuscular hemoglobin determination [facility] Mean corpuscular hemoglobin determination [facility] Neutrophil count [facility] Neutrophil count [facility] Neutrophil percent differential count [facility] Neutrophil percent differential count [facility] Patient Education Abdominal Pain [facility] Work Phone: Patient referral [facility] Work Phone: Platelets [#/volume] in Blood [facility] Platelets [#/volume] in Blood [facility] Red blood cell count [facility] Red blood cell count [facility] Red cell distributio n width determination [facility] Red cell distributio n width determination [facility] Rubella IgG measurement [facility] Streptococcus agalac tiae [Presence] in Unspecified specimen by Organism specific culture [facility] Treponema sp Ab [Pre sence] in Serum [facility] Urine culture [facility] Work Phone: [facility] Immunizations Immunization Date Immunization Notes [facility] Provider [facility]-2025 tetanus toxoid, redu solis diphtheria toxoid, and acellular pertussis vaccine, adsorbed Dr. Allyssa Velarde DO Work Phone: [facility] 07-11-2024 influenza, seasonal, injectable, preservative free Dr. Allyssa Velarde DO Work Phone: [facility] 08-26-2023 tetanus toxoid, redu solis diphtheria toxoid, and acellular pertussis vaccine, adsorbed Dr. Allyssa Velarde Work Phone: [facility] 07-23-2023 influenza, injectabl e, quadrivalent, preservative free Dr. Allyssa Velarde Work Phone: [facility] 06-09-2022 influenza, injectabl e, quadrivalent, preservative free Dr. Allyssa Velarde Work Phone: [facility] 06-09-2022 influenza, seasonal, injectable Dr. Allyssa Velarde Work Phone: [facility] 07-02-2021 Covid (Moderna) Dr. Allyssa aguilar Work Phone: [facility] 06-12-2021 influenza, injectabl e, quadrivalent, preservative free Dr. Allyssa Velarde Work Phone: [facility] 06-12-2021 influenza, seasonal, injectable Dr. Allyssa Velarde Work Phone: [facility] 10-23-2020 Covid (Moderna) Dr. Allyssa aguilar Work Phone: [facility] 09-25-2020 Covid (Moderna) Dr. Allyssa aguilar Work Phone: [facility] 06-13-2020 influenza, injectabl e, quadrivalent, preservative free Dr. Allyssa Velarde Work Phone: [facility] 06-13-2020 influenza, seasonal, injectable Dr. Allyssa Velarde Work Phone: [facility] 07-11-2019 influenza, injectabl e, quadrivalent, preservative free Dr. Allyssa Velarde Work Phone: [facility] 07-11-2019 influenza, seasonal, injectable Dr. Allyssa Velarde Work Phone: [facility] 07-07-2018 influenza, injectabl e, quadrivalent, preservative free Dr. Allyssa Velarde Work Phone: [facility] 07-07-2018 influenza, seasonal, injectable Dr. Allyssa Velarde Work Phone: [facility] 06-04-2017 influenza, injectabl e, quadrivalent, preservative free Dr. Allyssa Velarde Work Phone: [facility] 06-04-2017 influenza, seasonal, injectable Dr. Allyssa Velarde Work Phone: [facility] 06-16-2016 influenza, injectabl e, quadrivalent, preservative free Dr. Allyssa Velarde Work Phone: [facility] 06-16-2016 influenza, seasonal, injectable Dr. Allyssa Velarde Work Phone: [facility] 03-05-[address] Allyssa Velarde Work Phone: [facility] Payers Date Payer Category Payer Unknown [id number] 2024 Self-pay [id number] 2023 [employer] Blue Shield BLUE ACCE PPO [id number] 2023 Unknown [id number] 1994 Unknown [id number] 2.16.840.1.759179.3.579.2. 479 1994 Unknown [id number] 2.16.840.1.193203.3.579.2. 479 Private Health Insurance [id number] Unknown [id number] Unknown [facility] [id number] Unknown ANTHEM [id number] Unknown [id number] 2.16.840.1.285750.3.579.2. 462 Unknown [id number] 2.16.840.1.182793.3.579.2. 462 Unknown [id number] 2.16.840.1.478522.3.579.2. 462 Unknown [id number] 2.16.840.1.457979.3.579.2. 462 Unknown [id number] 2.16840.1.932298.3.579.2. 462 Unknown [id number] 2..840.1.516404.3.579.2. 462 Unknown [id number] 2.16.840.1.966022.3.579.2. 462 Unknown [id number] 2.840.1.196637.3.579.2. 462 Unknown [id number] 2.840.1.440184.3.579.2. 462 Unknown [id number] 2.840.1.769161.3.579.2. 462 Unknown [id number] 2..840.1.610264.3.579.2. 462 Unknown [id number] 2.16.840.1.645215.3.579.2. 462 Unknown [id number] 2.16840.1.359594.3.579.2. 462 Unknown [id number] 2.16.840.1.566339.3.579.2. 462 Unknown [id number] 2.16.840.1.378518.3.579.2. 462 Unknown [id number] 2.16.840.1.534685.3.579.2. 462 Unknown [id number] 2.16.840.1.817048.3.579.2. 462 Unknown [id number] 2.16.840.1.721093.3.579.2. 462 Unknown [id number] 2.16.840.1.121806.3.579.2. 462 Unknown [id number] 2.16.840.1.339545.3.579.2. 462 Unknown [id number] 2.16.840.1.930530.3.579.2. 462 Unknown [id number] 2.16.840.1.163578.3.579.2. 462 Unknown [id number] 2.16.840.1.095320.3.579.2. 462 Social History Date Type Detail Facility Start: 03-05-2022 End: 09-24-2023 Tobacco smoking status DEIS Unknown if ever smoked [facility] Start: 1995 Sex Assigned At Female [facility] Start: 11-18-2024 End: 11-18-2024 Tobacco smoking status NHIS Never smoked tobacco [facility] Start: 11-18-2024 Tobacco use and exposure Smokeless tobacco non-user [facility] Start: 11-18-2024 Alcoholic beverage intake Ex-drinker (finding) [facility] Start: 11-18-2024 History of Social function [facility] Start: 11-18-2024 Tobacco use panel [facility] Adult Depression Screening Assessment 0 [facility] Start: 1995 Sex assigned at Not on file [facility] Start: 11-19-2024 Sex Female (finding) [facility] Goals Date Patient Goal Desired Activity /State Functional Status Date Assessment Result Facility 2022 Functional status Ambulates [facility] Work Phone: Mental Status Date Assessment Result Facility 11-18-2024 Cognitive function Level Of Cons ciousness Awake;Alert;Appropriate;Follow s Commands [facility] Work Phone: 2022 Cognitive function Voice/Name [facility] Work Phone: Clinical Notes 02-19-2023 to 04-17-2025 Note Date & Type Note Facility 04-17-2025 Progress note [facility] 04-03-2025 Progress note [facility] 03-30-2025 Progress note [facility] 03-30-2025 Progress note Note Date/Time March 30, 2025 3:11pm [facility] [address] [place] [address], [address] [place] [address] OFFICE VISIT Date of Service: 03/30/25 MR#: [id number] Acct: [id number] Name: EDEL GALLOWAY Rep #: [id number] : 1995 Provider: BRAYAN Daniel Age/Sex: 29/F [place] [facility] [place]: Signed Intake Vital Signs 03/26/25 08:56 [...] Reasons: 36wk ob Chief Complaint: 36wk ob Dolphin Researcher Required: No Is patient in pain?: No [...] 1 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 Date Name GA/Weeks Outcome Route Bth Weight Gen Labor Lgth Anesthesia Del [facility] Provider FOB 11/20/22 miscarriage @5-6 wks 09/24/23 Delainey 40 live - full term 7#9oz Female ep idural [facility] Dr. Adrianna Acosta Delivery Date: 09/24/23 Last [...] NIPT. wants to do anatomy scan in [place]. 11/02/24 -?-?-?-?-?-?-?-?-?-?-?-?- 15w 2d 160 lb 2 oz 122/85 Nega tive -?-?-?-?-?-?-?-?-?-?-?-?- Negative 150 -?-?-?-?-?-?-?-?-?-?-?--?- SM- no vb crampi ng 12/02/24 -?-?-?-?-?-?-?-?-?-?-?-?- 19w 4d 160 lb 2 oz 118/70 Nega tive -?-?-?-?-?-?-?-?-?-?-?-?- Negative 146 -?-?-?-?-?-?-?-?-?-?-?-?- MH-No VB. Luis cano. Repeat MFM US 12/26. 12/28/24 -?-?-?-?-?-?-?-?-?-?-?-?- 23w 2d 159 lb 2 oz 110/74 Nega tive -?-?-?-?-?-?-?-?-?-?-?-?- Negative 143 23 -?-?-?-?-?-?-?-?-?-?-?-?- [facility] UA neg for infection. 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 Farrah Manning, DO; Dr. 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 Allyssa Velarde DO ~ [facility] Work Phone: 1(201) 625-344307-02-2025 Progress [facility], [address] [place] [id number] OFFICE VISIT Date of Service: 03/08/25 MR#: [id number] Acct: [id number] Name: EDEL GALLOWAY Rep #: [id number] : 1995 Provider: Dr. 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 Adrianna Acosta Delivery Date: 09/24/23 Last [...] [facility] -?-?-?-?-?-?-?-?-?-?-?-?- 15w 2d 160 lb [...] Immediate Larc, Signs and Symptoms of Preeclampsia, [place] Education, Family Medical Leave or Disability Forms [...] Velde DO> Date _ Farrah Manning DO [facility] Signature: Date (if applicable) CC: ~ [facility]06-20-2025 [facility] [address] [place] [address], [address] [place] [address] OFFICE VISIT Date of Service: 02/24/25 MR#: [id number] Acct: [id number] Name: EDEL GALLOWAY Rep #: [id number] : 1995 Provider: Dr. 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 Adrianna Acosta Delivery Date: 09/24/23 Last [...] NIPT. wants to do anatomy scan in [place]. 11/02/24 -?-?-?-?-?-?-?-?-?-?-?-?- 15w 2d 160 lb 2 [...] florence HIGUERA> Date _ Crissy Rodas MD [facility] Signature: Date (if applicable) CC: ~ [facility] [id number] [facility] [address] [place] [address], [address] [place] [address] OFFICE VISIT Date of Service: 02/06/25 MR#: [id number] Acct: [id number] Name: EDEL GALLOWAY CHUY Rep #: [id number] : 1995 Provider: BRAYAN Daniel Age/Sex: 29/F [place] [facility] Status: Signed Intake Vital Signs 12/28/24 14:53 01/23/25 10:17 02/06/25 11:11 Height 5 ft 4 in 5 ft 4 in 5 ft 4 in Weight: 162 lb 4 oz BMI 27.8 BP 112/75 Intake Visit Reasons: 29 wk ob Chief Complaint: 29wk OB Dolphin Researcher Required: No Is patient in pain?: No [...] 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 Adrianna Acosta Delivery Date: 09/24/23 Last [...] Negative 143 23 -?-?-?-?-?-?-?-?-?-?-?-?- [facility] UA neg for infection. Has [...] Immediate Larc, Signs and Symptoms of Preeclampsia, [place] Education, Family Medical Leave or Disability Forms [...] Lf-(2.5-5-3-5)-5 Lf/0.5 mL IM syringe Performing Provider: Cornia Daniel CNM Performing Location: [facility] Administered by: Annita Espinosa on 02/06/25 11:20 Dose Route Admin Location Dispensed Lot Number Expiration Date NDC Four Slide Operator 0.5 mL IM Left Deltoid 0.5 mL [id number] 02/03/26 28796-246-98 [employer]PASTEUR VIS Given Date VIS Provided [...] Navarrete Signature: Date (if applicable) CC: ~ [facility]05-19-2025 [facility] [address] [place] [address], [address] [place] [address] OFFICE VISIT Date of Service: 01/23/25 MR#: [id number] Acct: [id number] Name: EDEL GALLOWAY Rep #: [id number] : 1995 Provider: BRAYAN Daniel Age/Sex: 29/F Location[place] [facility] Status: Signed Intake Vital Signs 12/02/24 09:59 12/28/24 14:53 01/23/25 10:17 Height 5 ft 4 in 5 ft 4 in 5 ft 4 in Weight: 161 lb 8 oz BMI 27.7 BP 107/75 Intake Visit Reasons: 27wk ob/glucose Chief Complaint: 27wk OB Dolphin Researcher Required: No Is patient in pain?: No [...] 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 Adrianna Acosta Delivery Date: 09/24/23 Last [...] [facility] 11/[facility]/24 -?-?-?-?-?-?-?-?-?-?-?-?- 15w 2d 160 lb [...] Immediate Larc, Signs and Symptoms of Preeclampsia, [place] Education, Family Medical Leave or Disability Forms [...] Cosigner Signature: Date (if applicable) CC: ~ [facility]04-23-2025 Evaluation note* Diagnosis Onset Date Resolution [...] of cervical region acute J [facility] 2024 11:05am Segmental and somatic dysfunction of lumbar region acute Kyle 2024 11:05am Segmental and somatic dysfunction of sacral region acute Kyle e 2024 11:05am Segmental and somatic dysfunction of thoracic region acute J [facility] 2024 11:05am Supervision of high-risk acute February [...] 2025 10:17am UTI in acute March 10:17am [facility] Work Phone: 1(384) 263-239604-23-2025 Evaluation note* Diagnosis Onset Date Resolution Status [...] and somatic dysfunction of cervical region acute [facility] 2024 9:58am Segmental and somatic dysfunction of lumbar region acute January 23, 2025 9:58am Segmental and somatic dysfunction of sacral region acute January 23, 2025 9:58am Segmental and somatic dysfunction of thoracic region acute [facility] 2024 9:58am Supervision of high-risk acute January 23, 2025 9 :58am UTI in acute January 9:58am Abnormal ultrasound acute February 06, 2025 11:09am Anemia affecting acute February 06, 2025 11:09am History of miscarriage, currently acute February 06 11:09am Neck pain acute February 06, 2025 11:09am acute February 06, 2025 11:09am Segmental and somatic dysfunction of cervical region acute J [facility] 2024 11:09am Segmental and somatic dysfunction of lumbar region acute Feb 11:09am Segmental and somatic dysfunction of sacral region acute Kyle e 2024 11:09am Segmental and somatic dysfunction of thoracic region acute J [facility] 2024 11:09am Supervision of high-risk acute February [...] 132024 10:02am Maxillary sinusitis deleted 2024 10:02am [facility] Work Phone: 1(232) 200-805504-23-2025 Evaluation note* Diagnosis Onset Date Resolution Status [...] Abnormal ultrasound resolved April 17, 2025 9:31am [facility] Work Phone: 1(594) 762-658703-28-2025 Evaluation note* Diagnosis Onset Date Resolution Status [...] 1 0:02am UTI in acute March 10:02am [facility] [facility] Work Phone: 1([phone]) 761-363003-28-2025 Evaluation note* Diagnosis Onset Date Resolution Status [...] and somatic dysfunction of cervical region acute [facility] 2024 9:58am Segmental and somatic dysfunction of lumbar region acute January 23, 2025 9:58am Segmental and somatic dysfunction of sacral region acute January 23, 2025 9:58am Segmental and somatic dysfunction of thoracic region acute [facility] 2024 9:58am Supervision of high-risk acute January 23, 2025 9 :58am UTI in acute January 9:58am Abnormal ultrasound acute February 06, 2025 11:09am Anemia affecting acute February 06, 2025 11:09am History of miscarriage, currently acute February 06 11:09am Neck pain acute February 06, 2025 11:09am acute February 06, 2025 11:09am Segmental and somatic dysfunction of cervical region acute [facility] 2024 11:09am Segmental and somatic dysfunction of lumbar region acute Feb 11:09am Segmental and somatic dysfunction of sacral region acute [facility] 2024 11:09am Segmental and somatic dysfunction of thoracic region acute [facility] 2024 11:09am Supervision of high-risk acute February [...] 2025 9:33am UTI in acute March 9:33am [facility] Work Phone: 1(612) 357-569003-28-2025 Evaluation note* Diagnosis Onset Date Resolution Status [...] of cervical region acute [facility] 2024 11:09am Segmental and somatic dysfunction of [...] of cervical region acute [facility] 2024 11:05am Segmental and somatic dysfunction of lumbar region acute [facility] 2024 11:05am Segmental and somatic dysfunction of sacral region acute [facility] 2024 11:05am Segmental and somatic dysfunction of thoracic region acute [facility] 2024 11:05am Supervision of high-risk acute February [...] Maxillary sinusitis acute March 26, 2025 8:48am [facility] Work Phone: 1([phone]) 944-157703-28-2025 Evaluation note* Diagnosis Onset Date Resolution Status [...] and somatic dysfunction of cervical region acute [facility] 2024 9:58am Segmental and somatic dysfunction of lumbar region acute January 23, 2025 9:58am Segmental and somatic dysfunction of sacral region acute January 23, 2025 9:58am Segmental and somatic dysfunction of thoracic region acute [facility] 2024 9:58am Supervision of high-risk acute January [...] 2025 2:44pm UTI in acute March 2:44pm [facility] Work Phone: [phone]) [phone] Miscellaneous Notes* Telephone Encounter - Seda Reyes [...] AM EDT ----- Message from Wenceslao Short APRN.BANKING SERVICES CLERK sent at 11/19/2024 9:03 AM EDT ----- Patient is positive for influenza A. 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 She could use boxj-xpt-dojcrwz medications that are appropriate during for her other symptoms. Please inform her of the positive test she is negative for COVID, influenza B and RSV. [facility] Telephone encounter Note * Telephone Encounter - Seda Reyes LPN - 11/19/2024 11:15 AM EDT Explained results to patient. Explained to use medications as prescribed and OTC that is approved by her gyno. If patient isn't getting better she would need to follow up with her primary or gyno. Patient stated understanding and voices no other concerns at this time. Seda Reyes LPN [facility]03-15-[facility]25 Telephone encounter Note* Telephone Encounter - Seda Reyes LPN - 11/19/2024 11:13 AM EDT ----- Message from Wenceslao Short APRN.CNP sent at 11/19/2024 9:03 AM EDT ----- Patient is positive for influenza A. 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 She could use rhmz-kba-bhqmluy medications that are appropriate during for her other symptoms. Please inform her of the positive test she is negative for COVID, influenza B and RSV. [facility]03-15-[facility] Telephone encounter Note* Telephone Encounter - Wenceslao Short Jr., APRN.CNP - 11/19/2024 9:03 AM EDT Patient is positive for influenza A. 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 She could use dxee-jlk-vygbpzg medications that are appropriate during for her other symptoms. Please inform her of the positive test she is negative for COVID, influenza B and RSV. [facility]03-15-[facility]25 Miscellaneous Notes* Telephone Encounter - Wenceslao Short Jr., APRN.CNP - 11/19/2024 9:03 AM EDT Patient is positive for influenza A. 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 She could use rxwt-yxx-rggvgih medications that are appropriate during for her other symptoms. Please inform her of the positive test she is negative for COVID, influenza B and RSV. [facility]25 Discharge summary [facility] Medical Records Department [address] [place] [address] Emergency Department Summary 11/18/24 MR#: [id number] Acct: [id number] Name: EDEL GALLOWAY Rep #:[id number] : 1995 29 From: Alfonso Sylvester DO [...] that she was prescribed Zofran by her [employer] and states that she has been taking [...] bleeding. States that her first was uncomplicated. 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 Cloudy Urine pH 6.0 Ur Specific [place] 1.020 Urine Protein 15 H Urine Glucose [...] culture with your family physician or your [employer]. Do not take Zofran and Reglan together as these are both antiemetics. Ensure adequate hydration. Continue Tamiflu. Return with worsening symptoms or concerns. He tested positive for influenza A. Print Language: Nicaraguan Disposition Disposition: Home, Self Care What to do if you have Problems For any increased pain, shortness of breath, bleeding, nausea or vomiting, chestpain, or any unexpected problems, contact your Primary Care Provider. Call [facility] ([phone]) or report tothe closest Emergency Room. Call 911 if necessary. 11/18/24 2348 Cosigner Signature (if applicable): CC: Dr. 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 Cloudy Urine pH 6.0 Ur Specific [place] 1.020 Urine Protein 15 H Urine Glucose [...] culture with your family physician or your [employer]. Do not take Zofran and Reglan together as these are both antiemetics. Ensure adequate hydration. Continue Tamiflu. Return with worsening symptoms or concerns. He tested positive for influenza A. Print Language: Nicaraguan Disposition Disposition: Home, Self Care What to do if you have Problems For any increased pain, shortness of breath, bleeding, nausea or vomiting, chestpain, or any unexpected problems, contact your Primary Care Provider. Call [facility] ([phone]) or report to the closest Emergency Room. Call 911 if necessary. 11/18/24 2341 <Electronically signed by Alfonso Sylvester DO> Cosigner Signature (if applicable): CC: Dr. Allyssa Velarde DO ~ Signed [facility] Work Phone: 1([phone]) 395-532903-14-2025 OtbgIGUU-[id number] (AGENT OF COVID-19) RNA: Not detected INFLUENZA A RNA: Detected INFLUENZA B RNA: Not detected RESPIRATORY SYNCYTIAL VIRUS (RSV) RNA: Not detectedOregon Hospital For The InsaneComment on above:Performed By: #### [id number] #### [facility] CLIA [id number] [address] [place] [address] [place] [id number] Instructions* Patient Instructions* Wenceslao Short Jr., APRN.CNP - 11/18/2024 8:56 AM EDT Take medications as prescribed. Follow-up with PCP or return if symptoms do not resolve visit Urgent Care. documented in this [facility]03-[facility]25 NoteHNO ID: [id number] Author: WENCESLAO SHORT JR, APRN.DEMETRIUS Service: ? Author Type: Nurse Practitioner Type: Progress Notes Filed: 11/18/2024 09:13 Note Text: [facility] SHAQ Galloway is a [...] She has been prescribed Zofran by her [employer] but only has 1 tablet left. Patient states she has been exposed to influenza A from a family member. She is currently taking Tamiflu prescribed by her [employer]. The history is provided by the patient. [...] and even though she has contacted her [employer] for refill no prescription has been sent [...] after 4 days add a tab mid-day [facility]03-14-2025 History of Present illness Narrative* Wenceslao Short Jr., COSTING ANALYST.BANKING SERVICES CLERK - 11/18/2024 8:42 AM EDT [facility] SHAQ Galloway is a [...] She has been prescribed Zofran by her [employer] but only has 1 tablet left. Patient states she has been exposed to influenza A from a family member. She is currently taking Tamiflu prescribed by her [employer]. The history is provided by the patient. [...] and even though she has contacted her [employer] for refill no prescriptionhas been sent in. [...] tab mid-day MDM Procedures documented in [facility]02-[facility] Evaluation note* Diagnosis Onset Date Resolution Status Admit Date History of miscarriage, currently acute October 2:09pm Neck pain acute November 02, 2024 2:09pm acute November 02, 2024 2:09pm Segmental and somatic dysfunction of cervical region acute [facility] 2024 2:09pm Segmental and somatic dysfunction of lumbar region acute Oct [facility] 2024 2:09pm Segmental and somatic dysfunction of sacral region acute Oct [facility] 2024 2:09pm Segmental and somatic dysfunction of thoracic region acute [facility] 2024 2:09pm Supervision of high-risk acute November [...] and somatic dysfunction of cervical region acute [facility] 2024 9:58am Segmental and somatic dysfunction of lumbar region acute January 23, 2025 9:58am Segmental and somatic dysfunction of sacral region acute January 23, 2025 9:58am Segmental and somatic dysfunction of thoracic region acute [facility] 2024 9:58am Supervision of high-risk acute January [...] 1 1:09am UTI in acute February 11:09am [facility] Work Phone: 1([phone]) 138-456402-26-2025 Evaluation note* Diagnosis Onset Date Resolution Status [...] and somatic dysfunction of cervical region acute [facility] 2024 9:58am Segmental and somatic dysfunction of lumbar region acute January 23, 2025 9:58am Segmental and somatic dysfunction of sacral region acute January 23, 2025 9:58am Segmental and somatic dysfunction of thoracic region acute [facility] 2024 9:58am Supervision of high-risk acute January [...] 2025 11:05am UTI in acute February 11:05am [facility] Work Phone: [phone] 224-965501-29-2025 Evaluation note* Diagnosis Onset Date Resolution Status [...] Supervision of high-risk acute November 02, 2:09pm [facility] Work Phone: 1([phone]) 488-275601-29-2025 Evaluation note* Diagnosis Onset Date Resolution Status [...] 9 :58am UTI in acute January 9:58am [facility] Work Phone: 1(969) 794-259901-20-2024 Progress note Author Crissy Rodas [facility] September 26, 2023 7:18am Note Date/Time September 25, 2023 8 :34am [facility] Medical Records Department [address] [place] [address] Progress Note - OBGYN 09/25/23 0834 MR#: [id number] Acct: [id number] Name: EDEL GALLOWAY Rep #:[id number] : 1995 28 From: Crissy dennison MD PCP: Dr. Allyssa Velarde, DO Status: ADM IN Location: GW390-5 Subjective Subjective Patient doing well without complaints. [...] 81.2 H, Lymph % (Auto) 10.3 L, Russell % (Auto) 7.4, Eos % (Auto) 0.2, [...] rh positive 4. rubella immune Capacity Legal Cis Coordinator Reflex Medical hold order details:: IF a medical hold is selected below, a suggested order for a MEDICAL HOLD will reflex upon signing the document. Next of kin: [place] law dictates a PRIORITY LIST for identifying [...] Cosigner Signature (if applicable): CC: ~ Signed [facility] Work Phone: 1(430) 369-171501-20-2024 Progress note Author Crissy Rodas [facility] September 26, 2023 7:18am Note Date/Time September 26, 2023 7 :18am [facility] Medical Records Department [address] [place] [address] Progress Note - OBGYN 09/26/2317 MR#: [id number] Acct: [id number] Name: EDEL GALLOWAY Rep #:[id number] : 1995 28 From: Crissy dennison MD PCP: Dr. Allyssa Velarde, DO Status: ADM IN Location: YZ588-2 Subjective Subjective Patient doing well without complaints. [...] Cosigner Signature (if applicable): CC: ~ Signed [facility] Work Phone: 1(639) 569-344701-19-2024 Discharge summary Author Crissy Rodas [facility] September 24, 2023 11:54pm Note Date/Time September 24, 2023 1 0:11pm [facility] Medical Records Department [address] [place] [address] [place] [address] Instructions for Home/Discharge Instructions 09/24/232210 MR#: [id number] Acct: [id number] Name: EDEL GALLOWAY Rep #:[id number] : 1995 28 From: Crissy dennison MD [...] Up With: Crissy Rodas MD When: Call [phone] to make an appointment with your doctor [...] can be placed): Home, Self Care 09/24/23 7370<Electronically signed by Crissy Rodas MD>Crissy Rodas MD CC: Dr. Allyssa Velarde DO ~ Signed [facility] Work Phone: 1(808) 183-556201-18-2024 Procedure [facility] 09-24-2023 History and physical note Author Crissy Rodas [facility] September 24, 2023 2:09pm Note Date/Time September 24, 2023 2 :09pm [facility] [place] [address] H&P Exam - [employer] 09/24/23 1407 MR#: [id number] Acct: [id number] Name: EDEL GALLOWAY Rep #:[id number] : 1995 28 From: Crissy dennison MD PCP: Dr. 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 Date Name GA/Weeks Outcome Route Bth Weight Infant Gen Labor Lgth Anesthesia Del [facility] Provider FOB 11/20/22 miscarriage @5-6 wks Visit [...] any complications: none I have reviewed the [facility] and made any clinically relevant updates. 09/24/23 2841 <Electronically signed by Crissy Rodas MD> Cosigner Signature (if applicable): CC: Dr. Allyssa Velarde, DO; Dr. Crissy Rodas MD~ Signed [facility] Work Phone: 1(508) 902-567906-15-2023 NotePap Smear Specimen AdequacyJune 2022 11:59pmComment.Satisfactory for evaluation. No endocervical component is identified.[facility] INTER[facility]ACED A#[id number] Hospitals [facility] CenterComhel[facility] on above:Satisfactory for evaluation. No endocervical component is identified. 02-19-2023 NotePap Smear Specimen AdequacyJune 2022 11:59pmComment. Satisfactory for evaluation. No endocervical component is identified.[facility] INTER[facility]ACED A#[id number] Hospitals [facility] CenterComhel[facility] on above:Satisfactory for evaluation. No endocervical component is identified.02-19-2023 NotePap Smear Specimen AdequacyJune 2022 11:59pmComment.Satisfactory for evaluation. No endocervical component is identified.[facility] INTER[facility]ACED A#[id number] Hospitals Geneva Medical CenterComhelen [facility] on above:Satisfactory for evaluation. No endocervical [...] and somatic dysfunction of thoracic region acute [facility] Work Phone: Evaluation note* Diagnosis [...] dysfunction of thoracic region acute Cholelithiases acute [facility] Work Phone: Evaluation note* Diagnosis [...] and somatic dysfunction of thoracic region acute [facility] Work Phone: Evaluation note* Diagnosis Onset Date Resolution Status Hx of one miscarriage acute acute Supervision of high-risk acute Back pain acute Segmental and somatic dysfunction of cervical region acute Segmental and somatic dysfunction of lumbar region acute Segmental and somatic dysfunction of sacral region acute Segmental and somatic dysfunction of thoracic region acute [facility] Work Phone: Evaluation note* Diagnosis [...] infection) acute Vanishing twin syndrome acut e [facility] Work Phone: Evaluation note* Diagnosis [...] high-risk acute Vanishing twin syndrome acut e [facility] Work Phone: Evaluation note* Diagnosis [...] high-risk acute Vanishing twin syndrome acut e [facility] Work Phone: Evaluation note* Diagnosis [...] thoracic region acute Conjunctivitis, right eye ac [place] Abnormal glucose tolerance a ffecting , antepartum acute Back pain acute Cervicogenic headache acute Choroid plexus cyst of fetus acute Conjunctivitis, right eye ac [place] Hx of one miscarriage acute Need to void immediately after urinating acute acute Segmental and somatic dysfunction of cervical region acute Segmental and somatic dysfunction of lumbar region acute Segmental and somatic dysfunction of pelvic region acute Segmental and somatic dysfunction of sacral region acute Segmental and somatic dysfunction of thoracic region acute Supervision of high-risk acute Vanishing twin syndrome acut e [facility] Work Phone: Evaluation note* Diagnosis [...] high-risk acute Vanishing twin syndrome acut e [facility] Work Phone: Evaluation note* Diagnosis [...] high-risk resolved Vanishing twin syndrome reso lved [facility] Work Phone: Evaluation note* Diagnosis Congestion of nasal sinus- Primary Other diseases of nasal cavity and sinuses Nausea and vomiting, unspecified vomiting type documented in this encounter [facility] Discharge instructions Additional Instructions I sent 2 prescriptions to your pharmacy take the antibiotic as prescribed. Follow-up and urine culture with your family physician or your [employer]. Do not take Zofran and Reglan together as these are both antiemetics. Ensure adequate hydration. Continue Tamiflu. Return with worsening symptoms or concerns. He tested positive for influenza A.[facility] Work Phone: Progress note Author Corina Daniel [facility] Note Date/Time January 23, 2025 10:33 am [facility] [address], [address] [place] [address] OFFICE VISIT Date of Service: 01/23/25 MR#: [id number] Acct: [id number] Name: EDEL GALLOWAY Rep #: [id number] : 1995 Provider: BRAYAN Daniel Age/Sex: 29/F [place] [facility] [place]: Signed Intake Vital Signs 12/02/24 09:59 12/28/24 14:53 01/23/25 10:17 Height 5 ft 4 in 5 ft 4 in 5 ft 4 in Weight: 161 lb 8 oz BMI 27.7 BP 107/75 Intake Visit Reasons: 27wk ob/glucose Chief Complaint: 27wk OB Dolphin Researcher Required: No Is patient in pain?: No [...] 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 Adrianna Acosta Delivery Date: 09/24/23 Last [...] Negative 143 23 -?-?-?-?-?-?-?-?-?-?-?-?- -[facility] fre[facility]. UA neg for infection. Has not [...] Cosigner Signature: Date (if applicable) CC: ~ [facility] Work Phone: Progress note Author Corina Daniel [facility] Note Date/Time February 06, 2025 11:33 am [facility] [address], [address] [place] [address] OFFICE VISIT Date of Service: 02/06/25 MR#: [id number] Acct: [id number] Name: EDEL GALLOWAY Rep #: [id number] : 1995 Provider: BRAYAN Daniel Age/Sex: 29/F [place] [facility] Status: Signed Intake Vital Signs 12/28/24 14:53 01/23/25 10:17 02/06/25 11:11 Height 5 ft 4 in 5 ft 4 in 5 ft 4 in Weight: 162 lb 4 oz BMI 27.8 BP 112/75 Intake Visit Reasons: 29 wk ob Chief Complaint: 29wk OB Dolphin Researcher Required: No Is patient in pain?: No [...] 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 Adrianna Acosta Delivery Date: 09/24/23 Last [...] NIPT. wants to do anatomy scan in [place]. 11/02/24 -?-?-?-?-?-?-?-?-?-?-?-?- 15w 2d 160 lb 2 oz 122/85 Nega tive -?-?-?-?-?-?-?-?-?-?-?--?- Negative 150 -?-?-?-?-?-?-?-?-?-?-?-?- SM- no vb crampi ng 12/02/24 -?-?-?-?-?-?-?-?-?-?-?-?- 19w 4d 160 lb 2 oz 118/70 Nega tive -?-?-?-?-?-?-?-?-?-?-?-?- Negative 146 -?-?-?-?-?-?-?-?-?-?-?-?- MH-No VB. Luis cano. Repeat MFM US 12/26. 12/28/24 -?-?-?-?-?-?--?-?-?-?-?-?- 23w 2d 159 lb 2 oz 110/74 Nega tive -?-?-?-?-?-?-?-?-?-?-?-?- Negative 143 23 -?-?-?-?-?-?-?-?-?-?-?-?- [facility] UA neg for infection. Has not been [...] Corina Daniel CNM Performing Location: [facility] Administered by: Annita Espinosa on 02/06/25 11:20 Dose Route Admin Location Dispensed Lot Number Expiration Date NDC Four Slide Operator 0.5 mL IM Left Deltoid 0.5 mL [id number] 02/03/26 45259-787-83 SANOF [employer]-PASTEUR VIS Given Date VIS Provided [...] Cosigner Signature: Date (if applicable) CC: ~ [facility] Work Phone: Progrewg note Author Crissy Rodas [facility] Note Date/Time February 24, 2025 11:4 5am [facility] [address] [place] [address], [address] [place] [address] OFFICE VISIT Date of Service: 02/24/25 MR#: [id number] Acct: [id number] Name: EDEL GALLOWAY CHUY Rep #: [id number] : 1995 Provider: Dr. 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 Adrianna Acosta Delivery Date: 09/24/23 Last [...] NIPT. wants to do anatomy scan in [place]. 11/02/24 -?-?-?-?-?-?-?-?-?-?-?-?- 15w 2d 160 lb 2 [...] inflammation Barriers Poor posture at work/baby 02/24/25 [id number] <Electronically signed by Crissy henriquez MD> Date _ Crissy Rodas MD Cosigner Signature: Date (if applicable) CC: ~ [facility] Work Phone: Progress note Author Farrah Restrepo [facility] Note Date/Time March 08, 2025 10:41 am [facility] [address], [address] [place] [address] OFFICE VISIT Date of Service: 03/08/25 MR#: [id number] Acct: [id number] Name: EDEL GALLOWAY Rep #: [id number] : 1995 Provider: Dr. 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 Adrianna Acosta Delivery Date: 09/24/23 Last [...] NIPT. wants to do anatomy scan in [place]. 11/02/24 -?-?-?-?-?-?-?-?-?-?-?-?- 15w 2d 160 lb 2 [...] Cosigner Signature: Date (if applicable) CC: ~ [facility] Work Phone: Progress note Author Corina Daniel [facility] Note Date/Time April 03, 2025 10:[facility] [address], [place] [address] OFFICE VISIT Date of Service: 04/03/25 MR#: [id number] Acct: [id number] Name: EDEL GALLOWAY CHUY Rep #: [id number] : 1995 Provider: BRAYAN Daniel Age/Sex: 30/F [place] [facility] [place]: Signed Intake Vital Signs 02/06/25 11:11 03/30/25 14:46 04/03/25 10:21 Height 5 ft 4 in 5 ft 4 in 5 ft 4 in Weight: 165 lb 2 oz BMI 28.3 BP 116/74 Intake Visit Reasons: 37wk ob Chief Complaint: 37wk ob Dolphin Researcher Required: No Is patient in pain?: No [...] 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 Adrianna Acosta Delivery Date: 09/24/23 Last [...] NIPT. wants to do anatomy scan in [place]. 11/02/24 -?-?-?-?-?-?-?-?-?-?-?-?- 15w 2d 160 lb 2 [...] Immediate Larc, Signs and Symptoms of Preeclampsia, [place] Education, Family Medical Leave or Disability Forms [...] Cosigner Signature: Date (if applicable) CC: ~ [facility] Work Phone: Progress note Author Crissy Rodas [facility] Note Date/Time April 17, 2025 10 :10am [facility] [address], [address] [place] [address] OFFICE VISIT Date of Service: 04/17/25 MR#: [id number] Acct: [id number] Name: EDEL GALLOWAY Rep #: [id number] : 1995 Provider: Dr. 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 Adrianna Acosta Delivery Date: 09/24/23 Last [...] Immediate Larc, Signs and Symptoms of Preeclampsia, [place] Education, Family Medical Leave or Disability Forms [...] Cosign Signature: Date (if applicable) CC: ~ [facility] Work Phone: Reason for referral (narrative)No reason for referral information availableWMercer [facility] Work Phone: Summary Purpose Family History No Family History Records Found Relationship Condition Age at Onset Recorded Date/T rick mother Diabetes mellitus Unknown Hypertension Unknown grandmother Cardiac disease Unknown Advance Directives No Advanced Directives Records Found Advance Directive Response Recorded Date/ Time Living Will No March 24, 2022 4:55am Power of Research Development Director No March 24 4:55am Advance Directive Response Recorded Date/ Time Living Will No March 31, 2022 8:15am Power of Research Development Director No March 31 8:15am Advance Directive Response Recorded Date/ Time Living Will No March 16, 2023 3:58pm Power of Research Development Director No March 16 3:58pm Advance Directive Response Recorded Date/ Time Living Will No April 13, 2023 2:15pm Power of Research Development Director No April 13 2:15pm Advance Directive Response Recorded Date/ Time Living Will No April 13, 2023 1:15pm Power of Research Development Director No April 13 1:15pm Advance Directive Response Recorded Date/ Time Living Will No September 24 12:10pm Power of Research Development Director No September 24, 2023 12:10pm Advance Directive Response Recorded Date/ Time Living Will No November 18, 2024 8:33pm Power of Research Development Director No November 18 8:33pm Advance Directive Response Recorded Date/ Time Living Will No November 18, 2024 8:33pm Do you have a Healthcare Power of Research Development Director? No November 18, 2024 8:33pm Chief Complaint [...] section and content) DATE CREATED AUTHOR 07/27/2018 [facility] DATE CREATED AUTHOR AUTHOR'S ORGANIZ ATION 05/02/2020 [facility] ([place]) DATE CREATED AUTHOR AUTHOR'S ORGANIZ ATION 11/21/2024 [facility] DATE CREATED AUTHOR AUTHOR'S ORGANIZ ATION 12/26/2024 [facility] DATE CREATED AUTHOR AUTHOR'S ORGANIZ ATION 04/21/2025 [facility] Care Teams (unrecognized sec [...] Provider, Refe rring Provider Active Ida Ye CHEMICAL HANDLER, CHEMICAL HANDLER-C Attending Provider Active Team Status: Inactive Member Role Status Dates Dr. Allyssa Velarde , DO Primary Care Provider Activ e Ida Ye CHEMICAL HANDLER, CHEMICAL HANDLER-C Attending Provider, Referring Provider Active Team Status: [...] Provid er, Attending Provider, Referring Provider Active [employer] Hand Relationship Specialty Start Date End Date Allyssa Velarde DO [address] [place] [id number] PCP - General Family Medicine 11/18/24 [employer] Relationship Specialty Start Date End Date Allyssa Velarde DO [address] [place] [id number] PCP - General Family Medicine 11/18/24 [employer] Relationship Specialty Start Date End Date Allyssa Velarde DO [address] [place] [id number] PCP - General Family Medicine 11/18/24 Team [...] 2024 End: December 02, 2024 Ida Ye CHEMICAL HANDLER, CHEMICAL HANDLER-C Attending Provider Active Start: December 02, 2024 End: December 02, 2024 Team Status: Inactive Member Role Status Dates Dr. Allyssa Velarde , DO Primary Care Provider Activ e Start: December 28, 2024 End: December 28, 2024 Dr. Allyssa Velarde , DO Referring Provider Active Start: December 28, 2024 End: December 28, 2024 Ida Ye CHEMICAL HANDLER, CHEMICAL HANDLER-C Attending Provider Active Start: December 28, 2024 [...] End: December 02, 2024 Ida Ye NP, CHEMICAL HANDLER-C Attending Provider Active Start: December 02, 2024 End: December 02, 2024 Team Status: Inactive Member Role/Relationship Status Dates Dr. Allyssa Velarde , DO Primary Care Provider Activ e Start: December 28, 2024 End: December 28, 2024 Dr. Allyssa Velarde , DO Referring Provider Active Start: December 28, 2024 End: December 28, 2024 Ida Ye NP, CHEMICAL HANDLER-C Attending Provider Active Start: December 28, 2024 [...] 2024 End: December 02, 2024 Ida Ye CHEMICAL HANDLER, CHEMICAL HANDLER-C Attending Provider Active Start: December 02, 2024 End: December 02, 2024 Team Status: Inactive Member Role/Relationship Status Dates Dr. Allyssa Velarde , DO Primary Care Provider Activ e Start: December 28, 2024 End: December 28, 2024 Dr. Allyssa Velarde , DO Referring Provider Active Start: December 28, 2024 End: December 28, 2024 Ida Ye CHEMICAL HANDLER, CHEMICAL HANDLER-C Attending Provider Active Start: December 28, 2024 [...] 2025 End: March 20, 2025 Ida Ye CHEMICAL HANDLER, CHEMICAL HANDLER-C Attending Provider Active Start: March 20, 2025 End: March 20, 2025 Team Status: Active Member Role/Relationship Status Dates Dr. Allyssa Vlearde DO Primary Care Provider Activ e Start: March 20, 2025 Ida Ye CHEMICAL HANDLER, CHEMICAL HANDLER-C Attending Provider Active Start: March 20, 2025 Ida Ye CHEMICAL HANDLER, CHEMICAL HANDLER-C Referring Provider Active Start: March 20, 2025 Team Status: Inactive Member Role/Relationship Status Dates Dr. Allyssa Velarde , Primary Care Provider Activ e Start: March 20, 2025 End: March 20, 2025 Ida Ye CHEMICAL HANDLER, CHEMICAL HANDLER-C Attending Provider Active Start: March 20, 2025 End: March 20, 2025 Ida Ye CHEMICAL HANDLER, CHEMICAL HANDLER-C Referring Provider Active Start: March 20, 2025 End: March 20, 2025 Team Status: Inactive Member Role/Relationship Status Dates Dr. Allyssa Velarde , Primary Care Provider Activ e Start: March 26, 2025 End: March 26, 2025 Dr. Allyssa Velarde DO Referring Provider Active Start: March 26, 2025 End: March 26, 2025 [facility] Self Schedule Attending Provider Active [...] 2024 End: December 28, 2024 Ida Ye CHEMICAL HANDLER, CHEMICAL HANDLER-C Attending Provider Active Start: December 28, 2024 [...] 2025 End: March 20, 2025 Ida Ye CHEMICAL HANDLER, CHEMICAL HANDLER-C Attending Provider Active Start: March 20, 2025 End: March 20, 2025 Team Status: Inactive Member Role/Relationship Status Dates Dr. Allyssa Velarde , DO Primary Care Provider Activ e Start: March 20, 2025 End: March 20, 2025 Ida Ye CHEMICAL HANDLER, CHEMICAL HANDLER-C Attending Provider Active Start: March 20, 2025 End: March 20, 2025 Ida Ye CHEMICAL HANDLER, CHEMICAL HANDLER-C Referring Provider Active Start: March 20, 2025 End: March 20, 2025 Team Status: Inactive Member Role/Relationship Status Dates Dr. Allyssa Velarde DO Primary Care Provider Activ e Start: March 26, 2025 End: March 26, 2025 Dr. Allyssa Velarde DO Referring Provider Active Start: March 26, 2025 End: March 26, 2025 [facility] Self Schedule Attending Provider Active Start: March [...] or prosecute any alcohol or drug abuse patient.[facility] the event this information is protected by the Federal Confidentiality of Alcohol and Drug Abuse Patient Records regulations: The Federal rules restrict any use of the information to criminally investigate or prosecute any alcohol or drug abuse patient.[facility] the event this information is protected by the Federal Confidentiality of Alcohol and Drug Abuse Patient Records regulations: The Federal rules restrict any use of the information to criminally investigate or prosecute any alcohol or drug abuse patient.[facility] Reason for Visit (unrecogniz ed section and [...] BE BASED ON THE PRIMARY CLINICAL RECORDS. [facility]. provides no warranty or guarantee of the accuracy or completeness of information in this document.
[2025-04-22] MEDS: Lactated Ringers 1,000 ML 999 ML IV (09:25)
--- OUTSIDE RECORDS SUMMARY | 2025-04-22 09:37 | XMS RPT_ITS | CCD ---
Author Organization [facility] Care Team Providers Care Wildlife Refuge Manager Name Role Phone EMPLOYEE, HEALTH Unavailable Unavailable [...] Allyssa Godinez Attending Provider [phone] Cassi ASTROPHYSICS PROFESSOR, ASTROPHYSICS PROFESSOR-C Ida Attending Provider [phone] BRAYAN Osuna Attending Provider [phone] Fiorella MENDEZ, ANDREA Patterson Attending Provider BRAYAN Daniel Attending Provider [phone] Dr. Allyssa Velarde Primary Care Provider 1( [phone] Dr. Allyssa Velarde Referring Provider Dr. Allyssa Godinez Attending Provider [phone] Cassi ASTROPHYSICS PROFESSOR, ASTROPHYSICS PROFESSOR-C Ida Attending Provider [phone] Dr. Allyssa Velarde Primary Care Provider [phone] Dr. Allyssa Velarde Referring Provider Dr. Allyssa Godinez Attending Provider [phone] Cassi ASTROPHYSICS PROFESSOR, ASTROPHYSICS PROFESSOR-C Ida Attending Provider [phone] [phone] Dr. Crissy [...] Provider Adrianna HIGUERA, Dr. Woodward Attending Provider [phone] Nga ARIAS, Dr. Hamilton Emergency Provider [phone] ALLYSSA VELARDE Primary Care Unavailable FARRAH MCKEON Referring Unavailab KRISTINA Ordoñez Attending Unavailable FARRAH MCKEON Referring Unavailab MISAEL Llanos Attending Unavailable ALLYSSA VELARDE Primary Care Unavailable Nga ARIAS, Dr. Hamilton Attending Provider [phone] Cassi ASTROPHYSICS PROFESSOR-CIda Attending Provider [phone] Corina Daniel CNM [...] Dr. Allyssa Munoz Primary Care Provider Cassi ASTROPHYSICS PROFESSOR-CIda Referring Provider [phone] Self Schedule, [facility] Attending Provider Brenda vailable Syd ARIAS, Dr. Allyssa Munoz Primary Care Provider Dr. Allyssa Velarde DO Referring Provider [phone] Cassi COKER-CIda Attending Provider [phone] Allyssa Velarde Primary Care Unavailable Syd, Allyssa [...] Allyssa Munoz Referring Unavailable Farrah Manning Attending [facility] Syd, Allyssa Munoz Referring Unavailable Syd, Allyssa Munoz Primary Care Unavailable Crissy Rodas Attending Unavailable Syd, Allyssa Munoz Primary Care Unavailable Ida Ye Referring Unavailable Ida Ye Attending Unavailable Allergies Allergy Classification Reported Allergen(s) Allergy Type Date of Onset Reaction(s) Facility (4 sources) Azithromycin; Translations: [AZITHROMYCIN] Drug Allergy 11-18-2024 Rash [facility] Medications Current Medications Medication Drug Class(es) Dates [...] PO daily December 28, 2024 12:00am Multivit 32-Pbmo-Bznhat 1-Dha (Pnv-Dha) 27 mg iron-1 mg -300 mg capsule (13 sources) Start: 09-27-2024 Multivit 96-Ttxb-Mkgcnj 1-Dha (Pnv-Dha) 27 mg iron-1 mg -300 [...] JOE , PC Delericy, Dave PRR , OJE 09/24/2 4, girl, Delainey Dave PRR, , [...] Test Name Value Interpretation Reference Range Facility Shop Firer/Fireman Office Visit Reporton 04-17-2025 Shop Firer/Fireman Office Visit Report [facility] [address], [address] [place] [address] OFFICE VISIT Date of Service: 04/17/25 MR#: [id number] Acct: [id number] Name: EDEL GALLOWAY Rep #: [id number] : 1995 Provider: Dr. 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 Normal [facility] Laboratory - Chemistry and C hemistry - challengeOrdered By: Farrah Restrepo on 04-13-2025 Glucose Ql (U) Negative [facility] Laboratory - UrinalysisOrder ed By: Farrah Restrepo on 04-13-2025 Protein Ql (U) Negative [facility] Shop Firer/Fireman Office Visit Reporton 04-13-2025 Shop Firer/Fireman Office Visit Report [facility] [address], [address] [place] [address] OFFICE VISIT Date of Service: 04/13/25 MR#: [id number] Acct: [id number] Name: EDEL GALLOWAY CHUY Rep #: [id number] : 1995 Provider: Dr. 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 Normal [facility] Laboratory - Chemistry and C hemistry - challengeOrdered By: Corina Daniel on 04-03-2025 Glucose Ql (U) Negative [facility] Laboratory - UrinalysisOrder ed By: Corina Daniel on 04-03-2025 Protein Ql (U) Negative [facility] Shop Firer/Fireman Office Visit Reporton 04-03-2025 Shop Firer/Fireman Office Visit Report [facility] [address], [address] [place] [address] OFFICE VISIT Date of Service: 04/03/25 MR#: [id number] Acct: [id number] Name: EDEL GALLOWAY Rep #: [id number] : 1995 Provider: BRAYAN Jj ams Age/Sex: 30/F Location: [facility] Status: Signed Intake Vital Signs 02/06/25 11:11 03/30/25 14:46 04/03/25 10:21 Height 5 ft 4 in 5 ft 4 in 5 ft 4 in Weight: 165 lb 2 oz BMI 28.3 BP 116/74 Intake Visit Reasons: 37wk ob Chief Complaint: 37wk ob Accounting Teacher Required: No Is patient in pain?: No [...] 1 current occupational status: 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 wants to do anatomy scan in [place]. 11/02/24 -???-???-???-???-???-? ??-???-???-???-???-??? -???- (more content not included)... Normal [facility] Rule out Beta Strep (Grp. B) on 2025 WILMAR Group B Beta Streptococcus is not isolated. Normal [facility] Comment on above: Performed By: #### M 100.3400 ####[facility] [address] [place], [address] Laboratory - Chemistry and C hemistry - challengeOrdered By: Corina Daniel on 03-30-2025 Glucose Ql (U) Negative [facility] Laboratory - UrinalysisOrder ed By: Corina Daniel on 03-30-2025 Protein Ql (U) Negative 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 Normal [facility] Screening beta-hemolytic Str eptococcus cultureOrdered By: Corina Daniel on 03-30-2025 Beta-hemolytic Streptococcus culture Group B Beta Streptococcus is not isolated. 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 Normal [facility] Absolute lymphocyte countOrd ered By: Farrah Restrepo on 03-20-2025 Lymphocytes Auto (Unsp spec) [#/Vol] 1.72 10*3/uL 0.83-4.[address] [facility] Absolute neutrophil countOrd ered By: Farrah Restrepo on 03-20-2025 Neutrophils (Bld) [#/Vol] 6.3 10*3/uL 2.0-7.[address] [facility] Automated lymphocyte count a s percentage of total leukocytesOrdered By: Farrah Restrepo on 03-20-2025 Lymphocytes/100 WBC Auto (Unsp spec) 19.3 % 19-[address] [facility] Basophil percentageOrdered B y: Farrah Restrepo on 03-20-2025 Basophils/100 WBC (Bld) 0.4 % 0-1 [facility] CBC W/Diff, Automatedon 03-07 Absolute Lymph 1.72 X10 3/uL Normal 0.83-4.[address] [facility] Comment on above: Performed By: #### L 100.0100 ####[facility] [address] [place], [place], [phone]([phone]) Absolute Neut 6.3 X10 3/uL Normal 2.0-7.[address] [facility] Comment on above: Performed By: #### L 100.0100 ####[facility] [address] [place], [address] Basophils/100 WBC (Bld) 0.4 % Normal 0-1 [facility] Comment on above: Performed By: #### L 100.0100 ####[facility] [address] [place], [address] Eosinophils/100 WBC (Bld) 1.9 % Normal 0-[address] [facility] Comment on above: Performed By: #### L 100.0100 ####[facility] [address] [place], [address] Erythrocyte distribution width (RBC) [Ratio] 13.1 % Normal 11.6-14.[address] [facility] Comment on above: Performed By: #### L 100.0100 ####[facility] [address] [place], [address] Hematocrit (Bld) [Volume fraction] 31.2 % Low 37-[address] [facility] Comment on above: Performed By: #### L 100.0100 ####[facility] [address] [place], [address] Hemoglobin (Bld) [Mass/Vol] 10.1 g/dL Low 12.0-15.[address] [facility] Comment on above: Performed By: #### L 100.0100 ####[facility] [address] [place], [address] IG% 0.700 Normal 0.0-0.[address] [facility] Comment on above: Result Comment: IG% - Immature Granulocytes (promyelocytes, myelocytes and metamyelocytes) > 1% indicates that a LEFT SHIFT is Present. Performed By: #### L 100.0100 ####[facility] [address] [place], [address] Lymphocytes/100 WBC (Bld) 19.3 % Normal 19-[address] [facility] Comment on above: Performed By: #### L 100.0100 ####[facility] [address] [place], [address] MCH (RBC) [Entitic mass] 27.4 pg Normal 27.0-32.[address] [facility] Comment on above: Performed By: #### L 100.0100 ####[facility] [address] [place], [address] MCHC (RBC) [Mass/Vol] 32.4 g/dL Normal 32-36 [facility] Comment on above: Performed By: #### L 100.0100 ####[facility] [address] [place], [address] MCV (RBC) [Entitic vol] 84.8 fL Normal 81-99 [facility] Comment on above: Performed By: #### L 100.0100 ####[facility] [address] [place], [address] Monocytes/100 WBC (Bld) 7.4 % Normal 0-10 [facility] Comment on above: Performed By: #### L 100.0100 ####[facility] [address] [place], [address] Neutrophils/100 WBC (Bld) 70.3 % High 47-[address] [facility] Comment on above: Performed By: #### L 100.0100 ####[facility] [address] [place], [address] Nucleated RBC (Bld) [#/Vol] 0 10*3/uL Normal 0-[address] [facility] Comment on above: Performed By: #### L 100.0100 ####[facility] [address] [place], [address] Platelet mean volume (Bld) [Entitic vol] 11.9 fL Normal 6.2-12.[address] [facility] Comment on above: Performed By: #### L 100.0100 ####[facility] [address] [place], [address] Platelets (Bld) [#/Vol] 199 10*3/uL Normal 150-[address] [facility] Comment on above: Performed By: #### L 100.0100 ####[facility] [address] [place], [address] RBC (Bld) [#/Vol] 3.68 10*6/uL Low 4.2-5.4 [facility] Comment on above: Performed By: #### L 100.0100 ####[facility] [address] [place], [address] RDW SD 40.3 fl Normal 35.1-43.[address] [facility] Comment on above: Performed By: #### L 100.0100 ####[facility] [address] [place], [address] WBC (Bld) [#/Vol] 8.9 10*3/uL Normal 4.4-11.0 [facility] Comment on above: Performed By: #### L 100.0100 ####[facility] [address] [place], [address] Eosinophil percentageOrdered By: Farrah Restrepo on 03-20-2025 Eosinophils/100 WBC (Bld) 1.9 % 0-[address] [facility] Erythrocyte distribution wid th ratioOrdered By: Farrah Restrepo on 03-20-2025 Erythrocyte distribution width (RBC) [Ratio] 13.1 % 11.6-14.[address] [facility] Erythrocyte distribution wid th standard deviationOrdered By: Farrah Restrepo on 03-20-2025 Erythrocyte distribution width (RBC) [Ratio] 40.3 fl 35.1-43.[address] [facility] Hematocrit Auto (Bld) [Volum e fraction]Ordered By: Farrah Restrepo on 03-20-2025 Hematocrit (Bld) [Volume fraction] 31.2 % Low 37-[address] [facility] Hemoglobin measurementOrdere d By: Farrah Restrepo on 03-20-2025 Hemoglobin (Bld) [Mass/Vol] 10.1 g/dL Low 12.0-15.[address] [facility] Immature granulocytes/100 WB C Auto (Bld)Ordered By: Farrah Restrepo on 03-20-2025 Immature granulocytes/100 WBC (Bld) 0.700 % 0.0-0.[address] [facility] Comment on above: IG% - Immature Granu locytes (promyelocytes, myelocytes and metamyelocytes) > 1% indicates that a LEFT SHIFT is Present. Laboratory - Chemistry and C hemistry - challengeOrdered By: Ida Ye on 03-20-2025 Glucose Ql (U) Negative [facility] Laboratory - UrinalysisOrder ed By: Ida Ye on 03-20-2025 Protein Ql (U) Negative [facility] MCV (mean corpuscular volume ) determinationOrdered By: Farrah Restrepo on 03-20-2025 MCV (RBC) [Entitic vol] 84.8 fL 81-99 [facility] Mean corpuscular hemoglobin (MCH) determinationOrdered By: Farrah Restrepo on 03-20-2025 MCH (RBC) [Entitic mass] 27.4 pg 27.0-32.[address] [facility] Mean corpuscular hemoglobin concentration (MCHC) determinationOrdered By: Farrah Restrepo on 03-20-2025 MCHC (RBC) [Mass/Vol] 32.4 g/dL 32-36 [facility] Mean platelet volume determi nationOrdered By: Farrah Restrepo on 03-20-2025 Platelet mean volume (Bld) [Entitic vol] 11.9 fL 6.2-12.[address] [facility] Monocyte percentageOrdered B y: Farrah Restrepo on 03-20-2025 Monocytes/100 WBC (Bld) 7.4 % 0-10 [facility] Neutrophil percentageOrdered By: Farrah Restrepo on 03-20-2025 Neutrophils/100 WBC (Bld) 70.3 % High 47-[address] [facility] Nucleated red blood cell per centageOrdered By: Farrah Restrepo on 03-20-2025 Nucleated RBC/100 WBC (Bld) [Ratio] 0 % 0-5 [facility] Shop Firer/Fireman Office Visit Reporton 03-20-2025 Shop Firer/Fireman Office Visit Report [facility] [address], [address] [place] [address] OFFICE VISIT Date of Service: 03/20/25 MR#: [id number] Acct: [id number] Name: EDEL GALLOWAY Rep #: [id number] : 1995 Provider: SABINE casper Age/Sex: 29/F Location: [facility] Status: Signed Intake Vital Signs 01/23/25 10:17 03/08/25 10:30 03/20/25 09:36 Height 5 ft 4 in 5 ft 4 in 5 ft 4 in Weight: 162 lb 2 oz BMI 27.8 BP 98/64 Intake Visit Reasons: 35wk ob Chief Complaint: 35 Week OB Accounting Teacher Required: No Is patient in pain?: No [...] 1 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 Normal [facility] Platelet countOrdered By: Seb Restrepo on 03-20-2025 Platelets (Bld) [#/Vol] 199 10*3/uL 150-[address] [facility] RBC Auto (Bld) [#/Vol]Ordere d By: Farrah Restrepo on 03-20-2025 RBC (Bld) [#/Vol] 3.68 10*6/uL Low 4.2-5.4 [facility] White blood cell (WBC) count Ordered By: Farrah Restrepo on 03-20-2025 WBC (Bld) [#/Vol] 8.9 10*3/uL 4.4-11.0 [facility] Laboratory - Chemistry and C hemistry - challengeOrdered By: Farrah Restrepo on 03-08-2025 Glucose Ql (U) 100 g/dL [facility] Laboratory - UrinalysisOrder ed By: Farrah Restrepo on 03-08-2025 Protein Ql (U) Trace [facility] Shop Firer/Fireman Office Visit Reporton 03-08-2025 Shop Firer/Fireman Office Visit Report [facility] [address], [address] [place] [address] OFFICE VISIT Date of Service: 03/08/25 MR#: [id number] Acct: [id number] Name: EDEL GALLOWAY Rep #: [id number] : 1995 Provider: Dr. 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 Normal [facility] Laboratory - Chemistry and C hemistry - challengeOrdered By: Crissy Rodas on 02-24-2025 Glucose Ql (U) Negative [facility] Laboratory - UrinalysisOrder ed By: Crissy Rodas on 02-24-2025 Protein Ql (U) Negative [facility] Shop Firer/Fireman Office Visit Reporton 02-24-2025 Shop Firer/Fireman Office Visit Report [facility] [address], [address] [place] [address] OFFICE VISIT Date of Service: 02/24/25 MR#: [id number] Acct: [id number] Name: EDEL GALLOWAY Rep #: [id number] : 1995 Provider: Dr. 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 Normal [facility] Laboratory - Chemistry and C hemistry - challengeOrdered By: Corina Daniel on 02-06-2025 Glucose Ql (U) Negative [facility] Laboratory - UrinalysisOrder ed By: Corina Daniel on 02-06-2025 Protein Ql (U) Negative [facility] Shop Firer/Fireman Office Visit Reporton 02-06-2025 Shop Firer/Fireman Office Visit Report [facility] [address], [address] [place] [address] OFFICE VISIT Date of Service: 02/06/25 MR#: [id number] Acct: [id number] Name: EDEL GALLOWAY Rep #: [id number] : 1995 Provider: BRAYAN Jj ams Age/Sex: 29/F Location: [facility] Status: Signed Intake Vital Signs 12/28/24 14:53 01/23/25 10:17 02/06/25 11:11 Height 5 ft 4 in 5 ft 4 in 5 ft 4 in Weight: 162 lb 4 oz BMI 27.8 BP 112/75 Intake Visit Reasons: 29 wk ob Chief Complaint: 29wk OB 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 Date Name GA/Weeks Outcome Route Bth Weight [facility]20[facility]22 miscarriage @5-6 wks 09/24/23 Miroslava 40 live - full term 7#9oz Female epidural [facility] Jonah Acosta Delivery Date: 09/24/23 Last [...] content not included)... Normal [facility] Absolute lymphocyte countOrd ered By: Ida Ye on 01-23-2025 Lymphocytes Auto (Unsp spec) [#/Vol] 1.13 10*3/uL 0.83-4.[address] [facility] Absolute neutrophil countOrd ered By: Ida Ye on 01-23-2025 Neutrophils (Bld) [#/Vol] 7.4 10*3/uL 2.0-7.[address] [facility] Automated lymphocyte count a s percentage of total leukocytesOrdered By: dIa Ye on 01-23-2025 Lymphocytes/100 WBC Auto (Unsp spec) 12.0 % Low 19-[address] [facility] Basophil percentageOrdered B y: Ida Ye on 01-23-2025 Basophils/100 WBC (Bld) 0.3 % 0-1 [facility] CBC W/Diff, Automatedon 01-05 Absolute Lymph 1.13 X10 3/uL Normal 0.83-4.[address] [facility] Comment on above: Performed By: #### L 509.8002, L501.0250, L3890.6006, L100.0100 ####[facility] [address] [place], [address] Absolute Neut 7.4 X10 3/uL Normal 2.0-7.[address] [facility] Comment on above: Performed By: #### L 509.8002, L501.0250, L3890.6006, L100.0100 ####[facility] [address] [place], [address] Basophils/100 WBC (Bld) 0.3 % Normal 0-1 [facility] Comment on above: Performed By: #### L 509.8002, L501.0250, L3890.6006, L100.0100 ####[facility] [address] [place], [address] Eosinophils/100 WBC (Bld) 0.9 % Normal 0-[address] [facility] Comment on above: Performed By: #### L 509.8002, L501.0250, L3890.6006, L100.0100 ####[facility] [address] [place], [address] Erythrocyte distribution width (RBC) [Ratio] 13.2 % Normal 11.6-14.[address] [facility] Comment on above: Performed By: #### L 509.8002, L501.0250, L3890.6006, L100.0100 ####[facility] [address] [place], [address] Hematocrit (Bld) [Volume fraction] 30.2 % Low 37-[address] [facility] Comment on above: Performed By: #### L 509.8002, L501.0250, L3890.6006, L100.0100 ####[facility] [address] [place], [address] Hemoglobin (Bld) [Mass/Vol] 10.3 g/dL Low 12.0-15.[address] [facility] Comment on above: Performed By: #### L 509.8002, L501.0250, L3890.6006, L100.0100 ####[facility] [address] [place], [address] IG% 0.400 Normal 0.0-0.[address] [facility] Comment on above: Result Comment: IG% - Immature Granulocytes (promyelocytes, myelocytes and metamyelocytes) > 1% indicates that a LEFT SHIFT is Present. Performed By: #### L 509.8002, L501.0250, L3890.6006, L100.0100 ####[facility] [address] [place], [address] Lymphocytes/100 WBC (Bld) 12.0 % Low 19-[address] [facility] Comment on above: Performed By: #### L 509.8002, L501.0250, L3890.6006, L100.0100 ####[facility] [address] [place], [address] MCH (RBC) [Entitic mass] 29.8 pg Normal 27.0-32.[address] [facility] Comment on above: Performed By: #### L 509.8002, L501.0250, L3890.6006, L100.0100 ####[facility] [address] [place], [address] MCHC (RBC) [Mass/Vol] 34.1 g/dL Normal 32-36 [facility] Comment on above: Performed By: #### L 509.8002, L501.0250, L3890.6006, L100.0100 ####[facility] [address] [place], [address] MCV (RBC) [Entitic vol] 87.3 fL Normal 81-99 [facility] Comment on above: Performed By: #### L 509.8002, L501.0250, L3890.6006, L100.0100 ####[facility] [address] [place], [address] Monocytes/100 WBC (Bld) 7.3 % Normal 0-10 [facility] Comment on above: Performed By: #### L 509.8002, L501.0250, L3890.6006, L100.0100 ####[facility] [address] [place], [address] Neutrophils/100 WBC (Bld) 79.1 % High 47-[address] [facility] Comment on above: Performed By: #### L 509.8002, L501.0250, L3890.6006, L100.0100 ####[facility] [address] [place], [address] Nucleated RBC (Bld) [#/Vol] 0 10*3/uL Normal 0-[address] [facility] Comment on above: Performed By: #### L 509.8002, L501.0250, L3890.6006, L100.0100 ####[facility] [address] [place], [address] Platelet mean volume (Bld) [Entitic vol] 11.5 fL Normal 6.2-12.[address] [facility] Comment on above: Performed By: #### L 509.8002, L501.0250, L3890.6006, L100.0100 ####[facility] [address] [place], [address] Platelets (Bld) [#/Vol] 181 10*3/uL Normal 150-[address] [facility] Comment on above: Performed By: #### L 509.8002, L501.0250, L3890.6006, L100.0100 ####[facility] [address] [place], [address] RBC (Bld) [#/Vol] 3.46 10*6/uL Low 4.2-5.4 [facility] Comment on above: Performed By: #### L 509.8002, L501.0250, L3890.6006, L100.0100 ####[facility] [address] [place], [address] RDW SD 42.0 fl Normal 35.1-43.[address] [facility] Comment on above: Performed By: #### L 509.8002, L501.0250, L3890.6006, L100.0100 ####[facility] [address] [place], [address] WBC (Bld) [#/Vol] 9.4 10*3/uL Normal 4.4-11.0 [facility] Comment on above: Performed By: #### L 509.8002, L501.0250, L3890.6006, L100.0100 ####[facility] [address] [place], [address] Eosinophil percentageOrdered By: Ida Ye on 01-23-2025 Eosinophils/100 WBC (Bld) 0.9 % 0-[address] [facility] Erythrocyte distribution wid th ratioOrdered By: Ida Ye on 01-23-2025 Erythrocyte distribution width (RBC) [Ratio] 13.2 % 11.6-14.[address] [facility] Erythrocyte distribution wid th standard deviationOrdered By: Ida Ye on 01-23-2025 Erythrocyte distribution width (RBC) [Ratio] 42.0 fl 35.1-43.[address] [facility] Glucose Challenge Gest 1H 50 renee 01-23-2025 GLU GEST 50g 1H 121 mg/dL Normal 70-[address] [facility] Comment on above: Performed By: #### L 509.8002, L501.0250, L3890.6006, L100.0100 ####[facility] [address] [place], [place], [address] Glucose measurement at 2 sophia rs post-dose gestational glucose tolerance testOrdered By: Ida Ye on 01-23-2025 Glucose [Mass/Vol] 121 mg/dL 70-140 [facility] HIVon 01-23-2025 HIV Non-Reactive Normal Nonreactive [facility] Comment on above: Result Comment: Non- Reactive Reactive Repeatedly reactive samples must be confirmed according to CDC recommended confirmatory algorithms. The subresults for either HIVAG or AHIV can be used as an aid in the selection of the confirmation algorithm for reactive samples. Send out specimens with Reactive results to [facility] for confirmation. Order the HIV antibody detection and differentiation: #[id number] Performed By: #### L 509.8002, L501.0250, L3890.6006, L100.0100 ####[facility] [address] [place], [place], [address] Hematocrit Auto (Bld) [Volum e fraction]Ordered By: Ida Ye on 01-23-2025 Hematocrit (Bld) [Volume fraction] 30.2 % Low 37-[address] [facility] Hemoglobin measurementOrdere d By: Ida Ye on 01-23-2025 Hemoglobin (Bld) [Mass/Vol] 10.3 g/dL Low 12.0-15.[address] [facility] Immature granulocytes/100 WB C Auto (Bld)Ordered By: Ida Ye on 01-23-2025 Immature granulocytes/100 WBC (Bld) 0.400 % 0.0-0.[address] [facility] Comment on above: IG% - Immature Granu locytes (promyelocytes, myelocytes and metamyelocytes) > 1% indicates that a LEFT SHIFT is Present. Laboratory - Chemistry and C hemistry - challengeOrdered By: Corina Daniel on 01-23-2025 Glucose Ql (U) Negative [facility] Laboratory - UrinalysisOrder ed By: Corina Daniel on 01-23-2025 Protein Ql (U) Negative [facility] MCV (mean corpuscular volume ) determinationOrdered By: Ida Ye on 01-23-2025 MCV (RBC) [Entitic vol] 87.3 fL 81-99 [facility] Mean corpuscular hemoglobin (MCH) determinationOrdered By: Ida Ye on 01-23-2025 MCH (RBC) [Entitic mass] 29.8 pg 27.0-32.[address] [facility] Mean corpuscular hemoglobin concentration (MCHC) determinationOrdered By: Ida Ye on 01-23-2025 MCHC (RBC) [Mass/Vol] 34.1 g/dL 32-36 [facility] Mean platelet volume determi nationOrdered By: Ida Ye on 01-23-2025 Platelet mean volume (Bld) [Entitic vol] 11.5 fL 6.2-12.[address] [facility] Monocyte percentageOrdered B y: Ida Ye on 01-23-2025 Monocytes/100 WBC (Bld) 7.3 % 0-10 [facility] Neutrophil percentageOrdered By: Ida Ye on 01-23-2025 Neutrophils/100 WBC (Bld) 79.1 % High 47-[address] [facility] No Panel InformationOrdered By: Ida Ye on 01-23-2025 HIV (1&2) Antibody Non-Reactive Nonreactive [facility] Comment on above: Non-ReactiveReactive Repeatedly reactive samples must be confirmed according to CDC recommended confirmatory algorithms. The subresults for either HIVAG or AHIV can be used as an aid in the selection of the confirmation algorithm for reactive samples.Send out specimens with Reactive results to [facility] for confirmation.Order the HIV antibody detection and differentiation: lc#[id number] Nucleated red blood cell per centageOrdered By: Ida Ye on 01-23-2025 Nucleated RBC/100 WBC (Bld) [Ratio] 0 % 0-[address] [facility] Shop Firer/Fireman Office Visit Reporton 01-23-2025 Shop Firer/Fireman Office Visit Report [facility] [address], [address] [place] [address] OFFICE VISIT Date of Service: 01/23/25 MR#: [id number] Acct: [id number] Name: EDEL GALLOWAY Rep #: [id number] : 1995 Provider: BRAYAN Jj ams Age/Sex: 29/F Location: [facility] Status: Signed Intake Vital Signs 12/02/24 09:59 12/28/24 14:53 01/23/25 10:17 Height 5 ft 4 in 5 ft 4 in 5 ft 4 in Weight: 161 lb 8 oz BMI 27.7 BP 107/75 Intake Visit Reasons: 27wk ob/glucose Chief Complaint: 27wk OB 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 Date Name GA/Weeks Outcome Route Bth Weight Gen Labor Lgth Anesthesia Del [facility] Provider FOB 11/20/22 miscarriage @5-6 wks 09/24/23 Delainey 40 live - full term 7#9oz Female epidural [facility] Jonah Acosta Delivery Date: 09/24/23 Last [...] content not included)... Normal [facility] Platelet countOrdered By: Anil Ye on 01-23-2025 Platelets (Bld) [#/Vol] 181 10*3/uL 150-[address] [facility] RBC Auto (Bld) [#/Vol]Ordere d By: Ida Ye on 01-23-2025 RBC (Bld) [#/Vol] 3.46 10*6/uL Low 4.2-5.4 [facility] Syphilis Antibodieson 2024 Syphilis Abs Non-Reactive Normal Nonreactive [facility] Comment on above: Performed By: #### L 509.8002, L501.0250, L3890.6006, L100.0100 ####[facility] [address] [place], [address] White blood cell (WBC) count Ordered By: Ida Ye on 01-23-2025 WBC (Bld) [#/Vol] 9.4 10*3/uL 4.4-11.0 [facility] Urine Cultureon 12-31-2024 URC Below infection travis durbin Mixed Gram Positive Organisms [place] Count 1000-10,000 MIXC Mixed contaminants. Submit a new specimen if indicated. Normal [facility] Comment on above: Performed By: #### M 100.2200 #### [facility] Laboratory [address] [place], [place], [address] Laboratory - Chemistry and C hemistry - challengeOrdered By: Farrah Restrepo on 12-28-2024 Bilirubin Ql (U) Negative [facility] Glucose Ql (U) Negative [facility] Ketones Ql (U) Large (80+) [facility] pH (U) 6.0 [pH] [facility] Specific gravity (U) [Rel density] 1.[address] [facility] Urobilinogen (U) [Mass/Vol] 0.7103114 mg/dL [facility] Laboratory - Hematology and Cell countsOrdered By: Farrah Restrepo on 12-28-2024 Hemoglobin Ql (U) Negative [facility] Laboratory - Specimen inform ationOrdered By: Farrah Restrepo on 12-28-2024 Clarity (U) Cloudy [facility] Color (U) Yellow [facility] Laboratory - UrinalysisOrder ed By: Farrah Restrepo on 12-28-2024 Nitrite Ql (U) Negative [facility] Protein Ql (U) Negative [facility] No Panel InformationOrdered By: Farrah Restrepo on 12-28-2024 Urine Leukocytes Negatve [facility] Shop Firer/Fireman Office Visit Reporton 12-28-2024 Shop Firer/Fireman Office Visit Report [facility] [address], [address] [place] [address] OFFICE VISIT Date of Service: 12/28/24 MR#: [id number] Acct: [id number] Name: EDEL GALLOWAY Rep #: [id number] : 1995 Provider: SABINE casper Age/Sex: 29/F Location: [facility] Status: Signed Intake Vital Signs 11/02/24 14:27 12/02/24 09:59 12/28/24 14:53 12/28/24 14:53 Height 5 ft 4 in 5 ft 4 in 5 ft 4 in 5 ft 4 in Weight: 159 lb 2 oz BMI 27.3 BP 110/74 Intake Visit Reasons: 23 wk ob *POS UTI 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 Date Name GA/Weeks Outcome Route Bth Weight [facility]/20[facility]22 miscarriage @5-6 wks 09/24/23 Delainey 40 live - full term 7#9oz Female epidural [facility] Jonah Acosta Delivery Date: 09/24/23 Last [...] content not included)... Normal [facility] Urine cultureOrdered By: Karissa Restrepo on 12-28-2024 Bacteria identified Cx Nom (U) Positive Abnormal [facility] Laboratory - Chemistry and C hemistry - challengeOrdered By: Ida Ye on 12-02-2024 Glucose Ql (U) Negative [facility] Laboratory - UrinalysisOrder ed By: Ida Ye on 12-02-2024 Protein Ql (U) Negative [facility] Shop Firer/Fireman Office Visit Reporton 12-02-2024 Shop Firer/Fireman Office Visit Report [facility], [address] [place] [address] OFFICE VISIT Date of Service: 12/02/24 MR#: [id number] Acct: [id number] Name: EDEL GALLOWAY Rep #: [id number] : 1995 Provider: SABINE casper Age/Sex: 29/F Location: [facility] Status: Signed Intake Vital Signs 10/05/24 12:36 11/18/24 18:02 12/02/24 09:59 Height 5 ft 4 in 5 ft 4 in 5 ft 4 in Weight: 160 lb 2 oz BMI 27.4 BP 118/70 Intake Visit Reasons: 19 wk ob Chief Complaint: 19 Week OB Accounting Teacher Required: No Is patient in pain?: No [...] 1 current occupational status: employed 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 ??-???-???-???-?? (more content not included)... [facility] Urine Cultureon 11-20-2024 URC Below infection travis durbin Mixed Gram Positive Organisms [place] Count 1000-10,000 MIXC Mixed contaminants. Submit a new specimen if indicated. Normal [facility] Comment on above: Performed By: #### L 400.0001, M100.678, M100.2200 #### [facility] [place], [address] Nenita 11-19-2024 VIRAJ Telephone ([facility]) EDEL GALLOWAY ([id number]) 1995 F Date Time Provider Department 11/19/24 WENCESLAO SHORT JR [facility] During your visit today, we recorded the following information about you: Wenceslao Short Jr., GABRIELA.TRANSLATIONAL SPECIALIST 11/19/2024 9:03 AM Signed Patient is positive for influenza A. She was prescribed Tamiflu by her clinical dietician. She could use zfbh-kdc-[id number] medications that are appropriate during for her other symptoms. Please inform her of the positive test she is negative for COVID, influenza B and RSV. Allergies As of Date: 11/19/2024 Noted Allergy Reaction AZITHROMYCIN 11/18/2024 2 - Rash Date Reviewed: 11/18/2024 Reviewed by: Wencesloa Short Jr., EGG GRADER.TRANSLATIONAL SPECIALIST - Fully Assessed Prescriptions as of 11/19/2024 [...] by WENCESLAO SHORT on 11/19/24 Normal [facility] Bilirubin Test strip Ql (U)O rdered By: Alfonso Sylvester on 11-18-2024 Bilirubin Ql (U) Negative Negative [facility] CNOVon 11-18-2024 CNOV Office Visit ([facility] ) EDEL GALLOWAY ([id number]) 1995 F Date Time Provider Department 11/18/24 8:30 AM WENCESLAO SHORT JR [facility] During your visit today, we recorded the following information about you: Temperature Pulse Respiration Blood pressure 97.4 degrees 110/minute 18/minute 106/71 Weight 70.9 kg Wenceslao Short Jr., EGG GRADER.TRANSLATIONAL SPECIALIST 11/18/2024 9:13 AM Signed [facility] Subjective Edel Galloway is [...] She has been prescribed Zofran by her OPERATIONS ACCOUNTANT but only has 1 tablet left. Patient states she has been exposed to influenza A from a family member. She is currently taking Tamiflu prescribed by her OPERATIONS ACCOUNTANT. The history is provided by the patient. [...] and even though she has contacted her OPERATIONS ACCOUNTANT for refill no prescription has been sent [...] Reviewed: 11/18/2024 Reviewed by: Wenceslao Short Jr., GABRIELA.TRANSLATIONAL SPECIALIST - Fully Assessed Reason for Visit: Cough [28] Cmt: Cough, sinus pressure, N/V all x 2 days Primary Visit Diagnosis:Congestion of nasal sinus [R09.81] Other Visit Diagnosis:Nausea and vomiting, unspecified vomiting type [R11.2] Order(s):COVID AND INFLUENZA A/B AND RSV PCR, ROUTINE [SQCVFLRS] Order #: [id number]. #:[id number] doxylamine-pyridoxine, vit B6, 10-10 mg TbECTake 2 tabs at night. If symptoms persist after 2 days add one tab in the morning. If symptoms still persist after 4 days add a tab mid-dayDisp: 12 tabletRfl: 0 amoxicillin-clavulanat e potassium (AUGMENTIN) 875-125 mg per tabletTake 1 tablet by mouth two times a day for 5 da (more content not included)... 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 Normal [facility] Epithelial cells.squamous LM Ql (Urine sed)Ordered By: Alfonso Sylvester on 11-18-2024 Epithelial cells.squamous LM.HPF (Urine sed) [#/Area] 5 /[HPF] 5-[address] [facility] Glucose Ql (U)Ordered By: Paul Sylvester on 11-18-2024 Urine Glucose (UA) Normal mg/dl Normal [facility] Influenza virus A and B and SARS-CoV-2 (COVID-19) and Respiratory syncytial virus RNAOrdered By: Alfonso Sylvester on 11-18-2024 SARS-CoV-2 (COVID-19) RNA ASIF+probe Ql (Unsp spec) Influenzae A Abnormal [facility] Ketones Test strip Ql (U)Ord ered By: Alfonso Sylvester on 11-18-2024 Ketones Ql (U) 150 mg/dl Abnormal Negative [facility] Comment on above: CRITICAL VALUE *H M100.678on [...] Negative INFLUENZAE A Normal [facility] Comment on above: Performed By: #### L 400.0001, M100.678, M100.2200 #### [facility] [address] [place] [address]. [place], [address] Microscopic analysis of urin e for red blood cells (RBC)Ordered By: Alfonso Sylvester on 11-18-2024 Microscopic analysis of urine for red blood cells (RBC) 0-5 SEEN /hpf 0-[address] [facility] Urine RBC 0-5 SEEN /hpf 0-[address] [facility] Mucus LM Ql (Urine sed)Order ed By: Alfonso Sylvester on 11-18-2024 Mucus Ql (Urine sed) 0 SEEN /hpf [facility] Nitrite Test strip Ql (U)Ord ered By: Alfonso Sylvester on 11-18-2024 Nitrite Ql (U) Negative Negative [facility] Protein Test strip Ql (U)Ord ered By: Alfonso Sylvester on 11-18-2024 Protein Ql (U) 15 mg/dl High Negative [facility] Squamous epithelial cells de tection in urine sediment by light microscopyOrdered By: Alfonso Sylvester on 11-18-2024 Epithelial cells.squamous LM Ql (Urine sed) 5-10 SEEN /hpf 5-[address] [facility] Urinalysis, Completeon 11-18 BACTERIA 1+ /hpf Normal None Seen [facility] Comment on above: Order Comment: CRITI VASYL VALUE CALLED TO [facility] 11/18/24 2205 Amy Lollo. RESULTS READ BACK BY SAME. SUPPORT SERVICES SPECIALIST TO SPECIFY Performed By: #### L 400.0001, M100.678, M100.2200 #### [facility] [address] [place], [address] EPI,SQUAMOUS 5-10 SEEN Normal 5-[address] [facility] Comment on above: Order Comment: CRITI VASYL VALUE CALLED TO [facility] 11/18/24 2205 Amy Lollo. RESULTS READ BACK BY SAME. SUPPORT SERVICES SPECIALIST TO SPECIFY Performed By: #### L 400.0001, M100.678, M100.2200 #### [facility] [address] [place], [address] RBC 0-5 SEEN Normal 0-[address] [facility] Comment on above: Order Comment: CRITI VASYL VALUE CALLED TO [facility] 11/18/24 2205 Amy Lollo. RESULTS READ BACK BY SAME. SUPPORT SERVICES SPECIALIST TO SPECIFY Performed By: #### L 400.0001, M100.678, M100.2200 #### [facility] [address] [place], [address] WBC 25-50 SEEN Normal 0-[address] [facility] Comment on above: Order Comment: CRITI VASYL VALUE CALLED TO [facility] 11/18/24 2205 Amy Lollo. RESULTS READ BACK BY SAME. SUPPORT SERVICES SPECIALIST TO SPECIFY Performed By: #### L 400.0001, M100.678, M100.2200 #### [facility] [address] [place], [address] Mucus Ql (Urine sed) 0 SEEN Normal [facility] Comment on above: Order Comment: CRITI VASYL VALUE CALLED TO [facility] 11/18/24 2205 Amy Patel. RESULTS READ BACK BY SAME. SUPPORT SERVICES SPECIALIST TO SPECIFY Performed By: #### L 400.0001, M100.678, M100.2200 #### [facility] [address] [place], [address] Urine blood detectionOrdered By: Alfonso Sylvester on 11-18-2024 Urine Occult Blood Negative Negative [facility] Urine clarityOrdered By: Beatrice Sylvester on 11-18-2024 Clarity (U) Sl. Cloudy Clear [facility] Urine color determinationOrd ered By: Alfonso Sylvester on 11-18-2024 Color (U) Yellow Yellow [facility] Urine cultureOrdered By: Beatrice Sylvester on 11-18-2024 Bacteria identified Cx Nom (U) Positive Abnormal [facility] Urine glucose detectionOrder ed By: Alfonso Sylvester on 11-18-2024 Glucose Ql (U) Normal mg/dl Normal [facility] Urine leukocyte esterase det ection by dipstickOrdered By: Alfonso Sylvester on 11-18-2024 Leukocyte esterase Test strip Ql (U) 500 /ul High Negative [facility] Urine pHOrdered By: Alfonso quintanilla on 11-18-2024 pH (U) 6.0 [pH] 5.0 - 8.[address] [facility] Urine sediment bacteria coun t by microscopy (number/high power field)Ordered By: Alfonso Sylvester on 11-18-2024 Bacteria LM.HPF (Urine sed) [#/Area] 1 /[HPF] None Seen [facility] Urine specific gravity measu rementOrdered By: Alfonso Sylvester on 11-18-2024 Specific gravity (U) [Rel density] 1.020 1.002-1.[address] [facility] Urine urobilinogen measureme ntOrdered By: Alfonso Sylvester on 11-18-2024 Urobilinogen Ql (U) Normal mg/dl Normal [facility] Urobilinogen Ql (U)Ordered B y: Alfonso Sylvester on 11-18-2024 Urine Urobilinogen Normal mg/dl Normal [facility] White blood cell countOrdere d By: Alfonso Sylvester on 11-18-2024 Urine WBC 25-50 SEEN /hpf 0-[address] [facility] White blood cell count 25-50 SEEN /hpf 0-[address] [facility] - Chemistry and C hemistry - challengeOrdered By: Crissy Rodas on 11-02-2024 Glucose Ql (U) Negative [facility] - UrinalysisOrder ed By: Crissy Rodas on 11-02-2024 Protein Ql (U) Negative [facility] Shop Firer/Fireman Office Visit Reporton 11-02-2024 Shop Firer/Fireman Office Visit Report [facility]'s [address], [address] [place] [address] OFFICE VISIT Date of Service: 11/02/24 MR#: [id number] Acct: [id number] Name: EDEL GALLOWAY Rep #: [id number] : 1995 Provider: Dr. 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 [facility] 11/02/24 -???-???-???-???-???-? ??-???-???-???-???-?? (more content not included)... Normal [facility] Absolute lymphocyte countOrd ered By: Farrah Lauro on 10-13-2024 Lymphocytes Auto (Unsp spec) [#/Vol] 1.67 10*3/uL 0.83-4.[address] [facility] Absolute neutrophil countOrd ered By: Farrah Lauro on 10-13-2024 Neutrophils (Bld) [#/Vol] 6.4 10*3/uL 2.0-7.[address] [facility] Automated lymphocyte count a s percentage of total leukocytesOrdered By: Farrah Restrepo on 10-13-2024 Lymphocytes/100 WBC Auto (Unsp spec) 18.7 % Low 19-[address] [facility] Basophil percentageOrdered B y: Farrah Lauro on 10-13-2024 Basophils/100 WBC (Bld) 0.4 % 0-1 [facility] CBC W/Diff, Automatedon Absolute Lymph 1.67 X10 3/uL Normal 0.83-4.[address] [facility] Comment on above: Performed By: #### L 509.4005, L3890.6300, L100.0100, L3890.6005, BTS, L509.8000, L3890.6100 ####[facility] [address] [place], [address] Absolute Neut 6.4 X10 3/uL Normal 2.0-7.[address] [facility] Comment on above: Performed By: #### L 509.4005, L3890.6300, L100.0100, L3890.6005, BTS, L509.8000, L3890.6100 ####[facility] [address] [place], [address] Basophils/100 WBC (Bld) 0.4 % Normal 0-1 [facility] Comment on above: Performed By: #### L 509.4005, L3890.6300, L100.0100, L3890.6005, BTS, L509.8000, L3890.6100 ####[facility] [address] [place], [address] Eosinophils/100 WBC (Bld) 1.0 % Normal 0-[address] [facility] Comment on above: Performed By: #### L 509.4005, L3890.6300, L100.0100, L3890.6005, BTS, L509.8000, L3890.6100 ####[facility] [address] [place], [address] Erythrocyte distribution width (RBC) [Ratio] 12.9 % Normal 11.6-14.[address] [facility] Comment on above: Performed By: #### L 509.4005, L3890.6300, L100.0100, L3890.6005, BTS, L509.8000, L3890.6100 ####[facility] [address] [place], [address] Hematocrit (Bld) [Volume fraction] 37.8 % Normal 37-[address] [facility] Comment on above: Performed By: #### L 509.4005, L3890.6300, L100.0100, L3890.6005, BTS, L509.8000, L3890.6100 ####[facility] [address] [place], [address] Hemoglobin (Bld) [Mass/Vol] 12.9 g/dL Normal 12.0-15.[address] [facility] Comment on above: Performed By: #### L 509.4005, L3890.6300, L100.0100, L3890.6005, BTS, L509.8000, L3890.6100 ####[facility] [address] [place], [address] IG% 0.300 Normal 0.0-0.[address] [facility] Comment on above: Result Comment: IG% - Immature Granulocytes (promyelocytes, myelocytes and metamyelocytes) > 1% indicates that a LEFT SHIFT is Present. Performed By: #### L 509.4005, L3890.6300, L100.0100, L3890.6005, BTS, L509.8000, L3890.6100 ####[facility] [address] [place], [address] Lymphocytes/100 WBC (Bld) 18.7 % Low 19-[address] [facility] Comment on above: Performed By: #### L 509.4005, L3890.6300, L100.0100, L3890.6005, BTS, L509.8000, L3890.6100 ####[facility] [address] [place], [address] MCH (RBC) [Entitic mass] 28.9 pg Normal 27.0-32.[address] [facility] Comment on above: Performed By: #### L 509.4005, L3890.6300, L100.0100, L3890.6005, BTS, L509.8000, L3890.6100 ####[facility] [address] [place], [address] MCHC (RBC) [Mass/Vol] 34.1 g/dL Normal 32-36 [facility] Comment on above: Performed By: #### L 509.4005, L3890.6300, L100.0100, L3890.6005, BTS, L509.8000, L3890.6100 ####[facility] [address] [place], [address] MCV (RBC) [Entitic vol] 84.8 fL Normal 81-99 [facility] Comment on above: Performed By: #### L 509.4005, L3890.6300, L100.0100, L3890.6005, BTS, L509.8000, L3890.6100 ####[facility] [address] [place], [address] Monocytes/100 WBC (Bld) 7.6 % Normal 0-10 [facility] Comment on above: Performed By: #### L 509.4005, L3890.6300, L100.0100, L3890.6005, BTS, L509.8000, L3890.6100 ####[facility] [address] [place], [address] Neutrophils/100 WBC (Bld) 72.0 % High 47-[address] [facility] Comment on above: Performed By: #### L 509.4005, L3890.6300, L100.0100, L3890.6005, BTS, L509.8000, L3890.6100 ####[facility] [address] [place], [address] Nucleated RBC (Bld) [#/Vol] 0 10*3/uL Normal 0-[address] [facility] Comment on above: Performed By: #### L 509.4005, L3890.6300, L100.0100, L3890.6005, BTS, L509.8000, L3890.6100 ####[facility] [address] [place], [address] Platelet mean volume (Bld) [Entitic vol] 10.8 fL Normal 6.2-12.[address] [facility] Comment on above: Performed By: #### L 509.4005, L3890.6300, L100.0100, L3890.6005, BTS, L509.8000, L3890.6100 ####[facility] [address] [place], [address] Platelets (Bld) [#/Vol] 257 10*3/uL Normal 150-[address] [facility] Comment on above: Performed By: #### L 509.4005, L3890.6300, L100.0100, L3890.6005, BTS, L509.8000, L3890.6100 ####[facility] [address] [place], [address] RBC (Bld) [#/Vol] 4.46 10*6/uL Normal 4.2-5.4 [facility] Comment on above: Performed By: #### L 509.4005, L3890.6300, L100.0100, L3890.6005, BTS, L509.8000, L3890.6100 ####[facility] [address] [place], [address] RDW SD 39.4 fl Normal 35.1-43.[address] [facility] Comment on above: Performed By: #### L 509.4005, L3890.6300, L100.0100, L3890.6005, BTS, L509.8000, L3890.6100 ####[facility] [address] [place], [address] WBC (Bld) [#/Vol] 8.9 10*3/uL Normal 4.4-11.0 [facility] Comment on above: Performed By: #### L 509.4005, L3890.6300, L100.0100, L3890.6005, BTS, L509.8000, L3890.6100 ####[facility] [address] [place], [address] Eosinophil percentageOrdered By: Farrah Restrepo on 10-13-2024 Eosinophils/100 WBC (Bld) 1.0 % 0-[address] [facility] Erythrocyte distribution wid th ratioOrdered By: Farrah Restrepo on 10-13-2024 Erythrocyte distribution width (RBC) [Ratio] 12.9 % 11.6-14.[address] [facility] Erythrocyte distribution wid th standard deviationOrdered By: Farrah Restrepo on 10-13-2024 Erythrocyte distribution width (RBC) [Entitic vol] 39.4 fL 35.1-43.[address] [facility] Erythrocyte distribution width (RBC) [Ratio] 39.4 fl 35.1-43.[address] [facility] HIV - WCHon 10-13-2024 HIV Non-Reactive Normal Nonreactive [facility] Comment on above: Order Comment: Reaso n for Exam: Performed By: #### L 509.4005, L3890.6300, L100.0100, L3890.6005, BTS, L509.8000, L3890.6100 ####[facility] [address] [place], [place], [id number] HIV 1 and HIV-2 antibody ass ay with HIV-1 p24 antigen detectionOrdered By: Farrah Restrepo on 10-13-2024 HIV 1+2 Ab+HIV1 p24 Ag IA Ql Non-Reactive Nonreactive [facility] HIV 1+2 Ab+HIV1 p24 Ag IA Ql Ordered By: Farrah Restrepo on 10-13-2024 HIV (1&2) Antibody Non-Reactive Nonreactive [facility] Hematocrit Auto (Bld) [Volum e fraction]Ordered By: Farrah Restrepo on 10-13-2024 Hematocrit (Bld) [Volume fraction] 37.8 % 37-[address] [facility] Hemoglobin measurementOrdere d By: Farrah Restrepo on 10-13-2024 Hemoglobin (Bld) [Mass/Vol] 12.9 g/dL 12.0-15.[address] [facility] Hepatitis B Surface Antigeno n 10-13-2024 HEP B Surf Ag Non-Reactive Normal [facility] Comment on above: Order Comment: Reaso n for Exam: Performed By: #### L 509.4005, L3890.6300, L100.0100, L3890.6005, BTS, L509.8000, L3890.6100 ####[facility] [address] [place], [address] Hepatitis B surface antigen detectionOrdered By: Farrah Restrepo on 10-13-2024 Hepatitis B Surface Antigen Non-Reactive Nonreactive [facility] Hepatitis C Antibodyon 10-13 Hepatitis C AB Non-Reactive Normal Nonreactive [facility] Comment on above: Order Comment: Reaso n for Exam: Result Comment: Non Reactive: < 0.8 Equivocal: >/= 0.8 to < 1.0 Reactive: >/= 1.0 The [facility] requires that a reactive/equivocal HCV antibody result be sent out for confirmation. HCV Quant by PCR testing. Performed By: #### L 509.4005, L3890.6300, L100.0100, L3890.6005, BTS, L509.8000, L3890.6100 ####[facility] [address] [place], [address] Hepatitis C virus antibody a ssayOrdered By: Farrah Restrepo on 10-13-2024 Hepatitis C Antibody Non-Reactive Nonreactive [facility] Comment on above: Non Reactive: < 0.8 Equivocal: >/= 0.8 to < 1.0 Reactive: >/= 1.0The CDC requires that a reactive/equivocal HCV antibody result be sent out for confirmation. HCV Quant by PCR testing. Immature granulocytes/100 WB C Auto (Bld)Ordered By: Farrah Restrepo on 10-13-2024 Immature granulocytes/100 WBC (Bld) 0.300 % 0.0-0.[address] [facility] Comment on above: IG% - Immature Granu locytes (promyelocytes, myelocytes and metamyelocytes) > 1% indicates that a LEFT SHIFT is Present. L509.8000on 10-13-2024 Syphilis Abs Non-Reactive Normal [facility] Comment on above: Order Comment: Reaso n for Exam: Performed By: #### L 509.4005, L3890.6300, L100.0100, L3890.6005, BTS, L509.8000, L3890.6100 ####[facility] [address] [place], [address] Lymphocytes Auto (Unsp spec) [#/Vol]Ordered By: Farrah Restrepo on 10-13-2024 Lymphocytes (Bld) [#/Vol] 1.67 10*3/uL 0.83-4.[address] [facility] Lymphocytes/100 WBC Auto (Un sp spec)Ordered By: Farrah Restrepo on 10-13-2024 Lymphocytes/100 WBC (Bld) 18.7 % Low 19-[address] [facility] MCV (mean corpuscular volume ) determinationOrdered By: Farrah Restrepo on 10-13-2024 MCV (RBC) [Entitic vol] 84.8 fL 81-99 [facility] Mean corpuscular hemoglobin (MCH) determinationOrdered By: Farrah Restrepo on 10-13-2024 MCH (RBC) [Entitic mass] 28.9 pg 27.0-32.[address] [facility] Mean corpuscular hemoglobin concentration (MCHC) determinationOrdered By: Farrah Restrepo on 10-13-2024 MCHC (RBC) [Mass/Vol] 34.1 g/dL 32-36 [facility] Mean platelet volume determi nationOrdered By: Farrah Restrepo on 10-13-2024 Platelet mean volume (Bld) [Entitic vol] 10.8 fL 6.2-12.[address] [facility] Monocyte percentageOrdered B y: Farrah Restrepo on 10-13-2024 Monocytes/100 WBC (Bld) 7.6 % 0-10 [facility] Neutrophil percentageOrdered By: Farrah Restrepo on 10-13-2024 Neutrophils/100 WBC (Bld) 72.0 % High 47-[address] [facility] Nucleated red blood cell per centageOrdered By: Farrah Restrepo on 10-13-2024 Nucleated RBC/100 WBC (Bld) [Ratio] 0 % 0-[address] [facility] Platelet countOrdered By: Seb Restrepo on 10-13-2024 Platelets (Bld) [#/Vol] 257 10*3/uL 150-[address] [facility] RBC Auto (Bld) [#/Vol]Ordere d By: Farrah Restrepo on 10-13-2024 RBC (Bld) [#/Vol] 4.46 10*6/uL 4.2-5.4 [facility] Rubella IgGon 10-13-2024 Rubella IgG Reactive Normal Nonreactive [facility] Comment on above: Order Comment: Reaso n for Exam: Result Comment: Anti body Results Interpretation of Immune Status Non Reactive Presumed Non-Immune Equivocal Equivocal Reactive Presumed Immune Performed By: #### L 509.4005, L3890.6300, L100.0100, L3890.6005, BTS, L509.8000, L3890.6100 ####[facility] [address] [place], [place], [id number] Rubella immune status IgGOrd ered By: Farrah Restrepo on 10-13-2024 Rubella IgG Antibody Reactive Nonreactive [facility] Comment on above: Antibody Results Int erpretation of Immune Status Non Reactive Presumed Non-Immune Equivocal Equivocal Reactive Presumed Immune Serum Treponema species anti body detectionOrdered By: Farrah Restrepo on 10-13-2024 Treponema sp Ab Ql (S) Non-Reactive [facility] Treponema sp Ab Ql (S)Ordere d By: Farrah Restrepo on 10-13-2024 Syphilis Total Antibody Non-Reactive [facility] Type AND Screenon 10-13-2024 ABO and Rh group Nom (Bld) Blood group O Rh(D) positive Normal [facility] Comment on above: Order Comment: PN Performed By: #### L 509.4005, L3890.6300, L100.0100, L3890.6005, BTS, L509.8000, L3890.6100 ####[facility] [address] [place], [place], [id number] White blood cell (WBC) count Ordered By: Farrah Restrepo on 10-13-2024 WBC (Bld) [#/Vol] 8.9 10*3/uL 4.4-11.0 [facility] Chlamydia/GC ASIF aptimaon CHLAMY,NUC ACID Negative Normal Negative [facility] Comment on above: Performed By: #### L 7000.1800, M100.2200 ####[facility] [address] [place], [place], [address] GC BY NUC ACID Negative Normal Negative [facility] Comment on above: Result Comment: Perf ormed at: =G - [facility] [address] [place], [place] [id number] Draw Tender: Jennifer Villareal MD, Phone: [phone] Performed By: #### L 0.1800, M100.2200 ####[facility] [address] [place], [address] Urine Cultureon 10-06-2024 URC Culture exhibits no growth. Normal [facility] Comment on above: Performed By: #### L 0.1800, M100.2200 ####[facility] [address] [place], [address] C. trachomatis rRNA ASIF+prob e Ql (Unsp spec)Ordered By: Farrah Restrepo on 10-05-2024 Chlamydia DNA (ASIF) Negative Negative [facility] Chlamydia trachomatis rRNA d etection by probe and target amplification methodOrdered By: Farrah Restrepo on 10-05-2024 C. trachomatis rRNA ASIF+probe Ql (Unsp spec) Negative Negative [facility] Neisseria gonorrhoeae nuclei c acid detection by amplified probe techniqueOrdered By: Farrah Restrepo on 10-05-2024 N. gonorrhoeae DNA ASIF+probe Ql (Unsp spec) Negative Negative [facility] Comment on above: Performed at: =G - [facility] [address] [place], [place] [id number] Director: Jennifer Villareal MD, Phone: [phone] Shop Firer/Fireman Office Visit Reporton 10-05-2024 Shop Firer/Fireman Office Visit Report [facility] [address], [address] [place] [address] OFFICE VISIT Date of Service: 10/05/24 MR#: [id number] Acct: [id number] Name: EDEL GALLOWAY Rep #: [id number] : 1995 Provider: Dr. 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 Adrianna Acosta Delivery Date: [...] NIPT. [place] to do anatomy [place] Menstrual History Last Menst (more content not included)... Normal [facility] Urine cultureOrdered By: Karisas Restrepo on 10-05-2024 Bacteria identified Cx Nom (U) Culture exhibits no growth. [facility] Absolute lymphocyte countOrd ered By: Crissy Rodas on 09-24-2023 Lymphocytes Auto (Unsp spec) [#/Vol] 1.60 10*3/uL 0.83-4.[address] [facility] Automated lymphocyte count a s percentage of total leukocytesOrdered By: Crissy Rodas on 09-24-2023 Lymphocytes/100 WBC Auto (Unsp spec) 10.3 % 19-[address] [facility] Basophil percentageOrdered B y: Crissy Rodas on 09-24-2023 Basophils/100 WBC (Bld) 0.3 % 0-1 [facility] Eosinophils/100 WBC (Bld) 0.2 % 0-[address] [facility] Hemoglobin (Bld) [Mass/Vol] 11.4 g/dL 12.0-15.[address] [facility] Monocytes/100 WBC (Bld) 7.4 % 0-10 [facility] Neutrophils (Bld) [#/Vol] 12.7 10*3/uL 2.0-7.[address] [facility] Neutrophils/100 WBC (Bld) 81.2 % 47-[address] [facility] WBC (Bld) [#/Vol] 15.6 10*3/uL 4.4-11.0 [facility] Blood manual differential co mment interpretation (narrative result)Ordered By: Crissy Rodas on 09-24-2023 Manual differential comment Mauro (Bld) [Interp] SCANNED [facility] Determination of erythrocyte mean corpuscular volume (MCV)Ordered By: Crissy Rodas on 09-24-2023 MCV (RBC) [Entitic vol] 87.6 fL 81-99 [facility] Erythrocyte distribution wid th ratioOrdered By: Crissy Rodas on 09-24-2023 Erythrocyte distribution width (RBC) [Ratio] 12.6 % 11.6-14.[address] [facility] Erythrocyte distribution wid th standard deviationOrdered By: Crissy Rodas on 09-24-2023 Erythrocyte distribution width (RBC) [Entitic vol] 40.6 fL 35.1-43.[address] [facility] Hematocrit Auto (Bld) [Volum e fraction]Ordered By: Crissy Rodas on 09-24-2023 Hematocrit (Bld) [Volume fraction] 34.7 % 37-[address] [facility] Immature granulocytes/100 WB C Auto (Bld)Ordered By: Crissy Rodas on 09-24-2023 Immature granulocytes/100 WBC (Bld) 0.600 % 0.0-0.[address] [facility] Comment on above: IG% - Immature Granu locytes (promyelocytes, myelocytes and metamyelocytes) > 1% indicates that a LEFT SHIFT is Present. Laboratory - Hematology and Cell countsOrdered By: Crissy Rodas on 09-24-2023 MCH (RBC) [Entitic mass] 28.8 pg 27.0-32.[address] [facility] MCHC (RBC) [Mass/Vol] 32.9 g/dL 32-36 [facility] Nucleated RBC/100 WBC (Bld) [Ratio] 0 % 0-[address] [facility] Platelets (Bld) [#/Vol] 168 10*3/uL 150-[address] [facility] Platelet mean volume Jayy-Ec ker (Bld) [Entitic vol]Ordered By: Crissy Rodas on 09-24-2023 Platelet mean volume (Bld) [Entitic vol] 13.2 fL 6.2-12.[address] [facility] RBC Auto (Bld) [#/Vol]Ordere d By: Crissy Rodas on 09-24-2023 RBC (Bld) [#/Vol] 3.96 10*6/uL 4.2-5.4 [facility] Serum Treponema species anti body detectionOrdered By: Crissy Rodas on 09-24-2023 Treponema sp Ab Ql (S) Non-Reactive [facility] - Chemistry and C hemistry - challengeon 09-18-2023 Glucose Ql (U) Negative [facility] - Urinalysison Protein Ql (U) Negative [facility] - Chemistry and C hemistry - challengeon 09-10-2023 Glucose Ql (U) Negative [facility] - Urinalysison Protein Ql (U) Negative [facility] - Chemistry and C hemistry - challengeon 09-02-2023 Glucose Ql (U) Negative [facility] - Urinalysison Protein Ql (U) Negative [facility] No Panel InformationOrdered By: Tere Osuna on 09-02-2023 Group B Streptococcus Culture Group B Beta Streptococcus is not isolated. [facility] - Chemistry and C hemistry - challengeon 08-26-2023 Glucose Ql (U) Negative [facility] Laboratory - Urinalysison Protein Ql (U) Negative [facility] Laboratory - Chemistry and C hemistry - challengeon 08-10-2023 Glucose Ql (U) Negative [facility] Laboratory - Urinalysison Protein Ql (U) Negative [facility] Laboratory - Chemistry and C hemistry - challengeon 07-23-2023 Glucose Ql (U) Negative [facility] Laboratory - Urinalysison Protein Ql (U) Negative [facility] Quantitative serum or plasma 3 hour gestational glucose tolerance panelOrdered By: Tere Osuna on 07-20-2023 Glucose tolerance 3 hours gestational panel See comment [facility] Comment on above: FASTING 90 Col: 07/08 [...] Glucose Ql (U) Negative [facility] Laboratory - Urinalysison Protein Ql (U) Negative [facility] Absolute lymphocyte countOrd ered By: Tere Osuna on 07-04-2023 Lymphocytes Auto (Unsp spec) [#/Vol] 1.46 10*3/uL 0.83-4.[address] [facility] Basophil percentageOrdered B y: Tere Osuna on 07-04-2023 Basophils/100 WBC (Bld) 0.4 % 0-1 [facility] Eosinophils/100 WBC (Bld) 0.8 % 0-[address] [facility] Neutrophils (Bld) [#/Vol] 11.7 10*3/uL 2.0-7.[address] [facility] Neutrophils/100 WBC (Bld) 83.0 % 47-[address] [facility] WBC (Bld) [#/Vol] 14.1 10*3/uL 4.4-11.0 [facility] Blood erythrocytes count (nu mber/volume)Ordered By: Tere Osuna on 07-04-2023 RBC (Bld) [#/Vol] 3.78 10*6/uL 4.2-5.4 [facility] Blood hemoglobin measurement (mass/volume)Ordered By: Tere Osuna on 07-04-2023 Hemoglobin (Bld) [Mass/Vol] 11.5 g/dL 12.0-15.[address] [facility] Blood lymphocytes/100 leukoc ytesOrdered By: Tere Osuna on 07-04-2023 Lymphocytes/100 WBC (Bld) 10.4 % 19-[address] [facility] Blood monocytes/100 leukocyt esOrdered By: Tere Osuna on 07-04-2023 Monocytes/100 WBC (Bld) 4.8 % 0-10 [facility] Blood platelet mean volumeOr dered By: Tere Osuna on 07-04-2023 Platelet mean volume (Bld) [Entitic vol] 11.0 fL 6.2-12.[address] [facility] Determination of erythrocyte mean corpuscular volume (MCV)Ordered By: Tere Osuna on 07-04-2023 MCV (RBC) [Entitic vol] 91.5 fL 81-99 [facility] Gestational diabetes screen 1-hour screen with 50g oral glucose loadOrdered By: Tere Osuna on 07-04-2023 Glucose 1 Hr post 50 g glucose PO [Mass/Vol] 161 mg/dL 70-[address] [facility] HIV 1 and HIV-2 antibody ass ay with HIV-1 p24 antigen detectionOrdered By: Tere Osuna on 07-04-2023 HIV 1+2 Ab+HIV1 p24 Ag IA Ql Non-Reactive Nonreactive [facility] Hematocrit Auto (Bld) [Volum e fraction]Ordered By: Tere Osuna on 07-04-2023 Hematocrit (Bld) [Volume fraction] 34.6 % 37-[address] [facility] Laboratory - Hematology and Cell countsOrdered By: Tere Osuna on 07-04-2023 Erythrocyte distribution width (RBC) [Entitic vol] 41.9 fL 35.1-43.[address] [facility] Erythrocyte distribution width (RBC) [Ratio] 12.6 % 11.6-14.[address] [facility] Immature granulocytes/100 WBC (Bld) 0.600 % 0.0-0.[address] [facility] Comment on above: IG% - Immature Granu locytes (promyelocytes, myelocytes and metamyelocytes) > 1% indicates that a LEFT SHIFT is Present. MCH (RBC) [Entitic mass] 30.4 pg 27.0-32.[address] [facility] Nucleated RBC/100 WBC (Bld) [Ratio] 0 % 0-5 [facility] Auto ([facility]BC) [Mass/Vol]Or dered By: Tere Osuna on 07-04-2023 MCHC (RBC) [Mass/Vol] 33.2 g/dL 32-36 [facility] Platelets bldOrdered By: Judith Osuna on 07-04-2023 Platelets (Bld) [#/Vol] 207 10*3/uL 150-[address] [facility] Serum Treponema species anti body detectionOrdered By: Tere Osuna on 07-04-2023 Treponema sp Ab Ql (S) Non-Reactive [facility] Culture, urineOrdered By: Lissa Osuna on 06-10-2023 Bacteria identified Cx Nom (U) Culture exhibits no growth. [facility] Bacteria identified Cx Nom (U) Culture exhibits no growth. [facility] Laboratory - Chemistry and C hemistry - challengeon 06-10-2023 Bilirubin Ql (U) Negative [facility] Glucose Ql (U) Negative [facility] Ketones Ql (U) Negative [facility] pH (U) 7.0 [pH] [facility] Specific gravity (U) [Rel density] 1.[address] [facility] Urobilinogen (U) [Mass/Vol] 0.7305352 mg/dL [facility] Laboratory - Hematology and Cell countson 06-10-2023 Hemoglobin Ql (U) Negative [facility] Laboratory - Specimen inform ationon 06-10-2023 Clarity (U) Cloudy [facility] Color (U) [place] [facility] Laboratory - Urinalysison Nitrite Ql (U) Negative [facility] Protein Ql (U) Negative [facility] No Panel Informationon 06-10 Urine Leukocytes Positive [facility] Urine Non-Hemolyzed Blood [facility] Laboratory - Chemistry and C hemistry - challengeon 05-13-2023 Glucose Ql (U) Negative [facility] Laboratory - Urinalysison Protein Ql (U) Negative [facility] No Panel InformationOrdered By: Ida Ye on 05-13-2023 Miscellaneous Test Comment MAILED SPECIMEN [facility] Laboratory - Chemistry and C hemistry - challengeon 04-14-2023 Glucose Ql (U) Negative [facility] Laboratory - Urinalysison Protein Ql (U) Negative [facility] Laboratory - Chemistry and C hemistry - challengeon 03-16-2023 Glucose Ql (U) Negative [facility] Laboratory - Urinalysison Protein Ql (U) Negative [facility] Absolute lymphocyte countOrd ered By: Farrah Restrepo on 03-12-2023 Lymphocytes Auto (Unsp spec) [#/Vol] 1.80 10*3/uL 0.83-4.[address] [facility] Basophil percentageOrdered B y: Farrah Restrepo on 03-12-2023 Basophils/100 WBC (Bld) 0.5 % 0-1 [facility] Eosinophils/100 WBC (Bld) 1.1 % 0-[address] [facility] Neutrophils (Bld) [#/Vol] 8.3 10*3/uL 2.0-7.[address] [facility] Neutrophils/100 WBC (Bld) 74.4 % 47-[address] [facility] WBC (Bld) [#/Vol] 11.1 10*3/uL 4.4-11.0 [facility] Blood erythrocytes count (nu mber/volume)Ordered By: Farrah Restrepo on 03-12-2023 RBC (Bld) [#/Vol] 4.33 10*6/uL 4.2-5.4 [facility] Blood hemoglobin measurement (mass/volume)Ordered By: Farrah Restrepo on 03-12-2023 Hemoglobin (Bld) [Mass/Vol] 12.9 g/dL 12.0-15.[address] [facility] Blood lymphocytes/100 leukoc ytesOrdered By: Farrah Restrepo on 03-12-2023 Lymphocytes/100 WBC (Bld) 16.2 % 19-[address] [facility] Blood monocytes/100 leukocyt esOrdered By: Farrah Restrepo on 03-12-2023 Monocytes/100 WBC (Bld) 7.3 % 0-10 [facility] Blood platelet mean volumeOr dered By: Farrah Restrepo on 03-12-2023 Platelet mean volume (Bld) [Entitic vol] 10.8 fL 6.2-12.[address] [facility] Determination of erythrocyte mean corpuscular volume (MCV)Ordered By: Farrah Restrepo on 03-12-2023 MCV (RBC) [Entitic vol] 88.7 fL 81-99 [facility] HIV 1 and HIV-2 antibody ass ay with HIV-1 p24 antigen detectionOrdered By: Farrah Restrepo on 03-12-2023 HIV 1+2 Ab+HIV1 p24 Ag IA Ql Non-Reactive Nonreactive [facility] Hematocrit Auto (Bld) [Volum e fraction]Ordered By: Farrah Restrepo on 03-12-2023 Hematocrit (Bld) [Volume fraction] 38.4 % 37-[address] [facility] Laboratory - Hematology and Cell countsOrdered By: Farrah Restrepo on 03-12-2023 Erythrocyte distribution width (RBC) [Entitic vol] 39.8 fL 35.1-43.[address] [facility] Erythrocyte distribution width (RBC) [Ratio] 12.2 % 11.6-14.[address] [facility] Immature granulocytes/100 WBC (Bld) 0.500 % 0.0-0.[address] [facility] Comment on above: IG% - Immature Granu locytes (promyelocytes, myelocytes and metamyelocytes) > 1% indicates that a LEFT SHIFT is Present. MCH (RBC) [Entitic mass] 29.8 pg 27.0-32.[address] [facility] Nucleated RBC/100 WBC (Bld) [Ratio] 0 % 0-[address] [facility] MCHC Auto (RBC) [Mass/Vol]Or dered By: Farrah Restrepo on 03-12-2023 MCHC (RBC) [Mass/Vol] 33.6 g/dL 32-36 [facility] No Panel InformationOrdered By: Farrah Restrepo on 03-12-2023 Hepatitis B Surface Antigen Non-Reactive Nonreactive [facility] Hepatitis C Antibody Non-Reactive Nonreactive [facility] Comment on above: Non Reactive: < 0.8 Equivocal: >/= 0.8 to < 1.0 Reactive: >/= 1.0The CDC recommends that a reactive/equivocal HCV antibody result be followed up by the HCV Nucleic Acid Amplificationtest (299343) Rubella IgG Antibody Reactive Nonreactive [facility] Comment on above: Antibody Results Int erpretation of Immune Status Non Reactive Presumed Non-Immune Equivocal Equivocal Reactive Presumed Immune Platelets bldOrdered By: Karissa Rsetrepo on 03-12-2023 Platelets (Bld) [#/Vol] 262 10*3/uL 150-[address] [facility] Serum Treponema species anti body detectionOrdered By: Farrah Restrepo on 03-12-2023 Treponema sp Ab Ql (S) Non-Reactive [facility] Culture, urineOrdered By: Dr Janet Restrepo on 02-21-2023 Bacteria identified Cx Nom (U) Culture exhibits no growth. [facility] Cervical or vagninal specime n microscopic examination by cytology stain (reported asOrdered By: Dr. Restrepo on 02-19-2023 Cytology report Cyto stain Doc (Cvx/Vag) Comment . [facility] Comment on above: The Pap smear is [...] (Unsp spec) Negative Negative [facility] Culture, urineOrdered By: Seb Restrepo on 02-19-2023 Bacteria identified Cx Nom (U) Culture exhibits no growth. [facility] Laboratory - CytologyOrdered By: Dr. Restrepo on 02-19-2023 Barrel Lathe Operator Cyto stain Nom (Cvx/Vag) [ID] Comment . [facility] Comment on above: Vita hendrickson, [employer] (ASCP) Laboratory - Microbiology an d Antimicrobial susceptibilityOrdered By: Dr. Restrepo on 02-19-2023 N. gonorrhoeae DNA ASIF+probe Ql (Unsp spec) Negative Negative [facility] Comment on above: Performed at: =[address] [id number] Director: Jennifer Villareal MD, Phone: [phone] Laboratory - Miscellaneous t estsOrdered By: Dr. Restrepo on 02-19-2023 Service comment (Unsp spec) [Interp] Comment . [facility] Comment on above: This liquid based Th inPrep(R) pap test was screened withthe use of an image guided system. Service comment (Unsp spec) [Interp] . . [facility] No Panel InformationOrdered By: Dr. Restrepo on 02-19-2023 Human Papillomavirus Screen Comment . [facility] Comment on above: The HPV DNA reflex c karthik were not met with this specimenresult therefore, no HPV testing was performed.Performed at: [address] [id number] Director: Jennifer Villareal MD, Phone: [phone] Pathology report final diagnosis Narrative Comment . [facility] Comment on above: NEGATIVE FOR INTRAEP ITHELIAL LESION OR MALIGNANCY. Serum or plasma choriogonado tropin detectionOrdered By: Tere Osuna on 01-22-2023 HCG ( test) Ql 2033 mIU/mL <[address] [facility] Comment on above: hCG levels with Gest ational AgeGestational Age hCG mIU/mL (IU/L)0.2 - 1 week 5 - 501-2 weeks 50 - 5002-3 weeks 100 - 61006-4 weeks 500 - 004821-1 weeks 1000 - 950892-9 weeks 50005 - 100,0006-8 weeks 60106 - 200,0002-3 months 98660 - 100,000 Serum or plasma choriogonado tropin detectionOrdered By: Tere Osuna on 01-20-2023 HCG ( test) Ql 977 mIU/mL <4 [facility] Comment on above: hCG levels with Gest ational AgeGestational Age hCG mIU/mL (IU/L)0.2 - 1 week 5 - 501-2 weeks 50 - 5002-3 weeks 100 - 72049-8 weeks 500 - 217080-1 weeks 1000 - 605414-0 weeks 24124 - 100,0006-8 weeks 50463 - 200,0002-3 months 40342 - 100,000 Serum or plasma choriogonado tropin detectionOrdered By: Dr. Rodas on 11-19-2022 HCG ( test) Ql 2 mIU/mL <4 [facility] Comment on above: hCG levels with Gest ational AgeGestational Age hCG mIU/mL (IU/L)0.2 - 1 week 5 - 501-2 weeks 50 - 5002-3 weeks 100 - 80751-3 weeks 500 - 489952-4 weeks 1000 - 500892-9 weeks 23824 - 100,0006-8 weeks 02278 - 200,0002-3 months 68703 - 100,000 Serum or plasma choriogonado tropin detectionOrdered By: Dr. Rodas on 11-17-2022 HCG ( test) Ql 13 mIU/mL <4 [facility] Comment on above: hCG levels with Gest ational AgeGestational Age hCG mIU/mL (IU/L)0.2 - 1 week 5 - 501-2 weeks 50 - 5002-3 weeks 100 - 53655-2 weeks 500 - 977569-1 weeks 1000 - 299157-6 weeks 61927 - 100,0006-8 weeks 74663 - 200,0002-3 months 19822 - 100,000 Laboratory - Chemistry and C hemistry - challengeon 2022 HCG ( test) Ql (U) Negative [facility] Work Phone: Comment on above: Very dilute urine sp ecimens, as indicated by a low specificgravity, may not contain banking representative levels of hCG. If is still suspected, a first morning urinespecimen should be collected 48 hours later and tested. Absolute lymphocyte counton 03-24-2022 Lymphocytes Auto (Unsp spec) [#/Vol] 2.12 10*3/uL 0.83-4.[address] [facility] Work Phone: Basophil percentageon 2021 Basophil percentage 0 SEEN /hpf 0-5 [facility] Work Phone: Basophils/100 WBC (Bld) 0.8 % 0-1 [facility] Work Phone: Bilirubin [Mass/Vol] 0.60 mg/dL 0.20-1.00 [facility] Work Phone: Comment on above: For patients on eltr ombopag therapy, use of Dimension [place] TBIL is not recommended. Chloride [Moles/Vol] 105 mmol/L 98-107 [facility] Work Phone: Eosinophils/100 WBC (Bld) 3.2 % 0-[address] [facility] Work Phone: Glucose [Mass/Vol] 108 mg/dL 74-106 [facility] Work Phone: Comment on above: Fasting Glucose resu lt from 100 to 125 mg/dL suggests IMPAIRED HOMEOSTASIS per A.D.A. criteria. Neutrophils (Bld) [#/Vol] 4.7 10*3/uL 2.0-7.[address] [facility] Work Phone: Neutrophils/100 WBC (Bld) 59.9 % 47-[address] [facility] Work Phone: Potassium [Moles/Vol] 3.8 mmol/L 3.5-5.1 [facility] Work Phone: Protein [Mass/Vol] 7.3 g/dL 6.4-8.2 [facility] Work Phone: Sodium [Moles/Vol] 138 mmol/L 136-145 [facility] Work Phone: WBC (Bld) [#/Vol] 7.8 10*3/uL 4.4-11.0 [facility] Work Phone: Bilirubin Test strip Ql (U)o n 03-24-2022 Bilirubin Ql (U) Negative Negative [facility] Work Phone: [phone] Blood erythrocytes count (nu mber/volume)on 03-24-2022 RBC (Bld) [#/Vol] 4.42 10*6/uL 4.2-5.4 [facility] Work Phone: Blood hemoglobin measurement (mass/volume)on 03-24-2022 Hemoglobin (Bld) [Mass/Vol] 13.3 g/dL 12.0-15.[address] [facility] Work Phone: Blood lymphocytes/100 leukoc yteson 03-24-2022 Lymphocytes/100 WBC (Bld) 27.3 % 19-[address] [facility] Work Phone: Blood monocytes/100 leukocyt eson 03-24-2022 Monocytes/100 WBC (Bld) 8.5 % 0-10 [facility] Work Phone: [phone] Blood platelet mean volumeon 03-24-2022 Platelet mean volume (Bld) [Entitic vol] 10.6 fL 6.2-12.[address] [facility] Work Phone: [phone] Determination of erythrocyte mean corpuscular volume (MCV)on 03-24-2022 MCV (RBC) [Entitic vol] 88.0 fL 81-99 [facility] Work Phone: [phone] Direct bilirubinon Bilirubin.direct [Mass/Vol] 0.15 mg/dL 0.00-0.[address] [facility] Work Phone: [phone] Hematocrit Auto (Bld) [Volum e fraction]on 03-24-2022 Hematocrit (Bld) [Volume fraction] 38.9 % 37-[address] [facility] Work Phone: [phone] Ketones Test strip Ql (U)on 03-24-2022 Ketones Ql (U) Negative Negative [facility] Work Phone: [phone] Laboratory - Chemistry and C hemistry - challengeon 03-24-2022 HCG ( test) Ql (U) Negative [facility] Work Phone: [phone] Comment on above: Very dilute urine sp ecimens, as indicated by a low specificgravity, may not contain banking representative levels of hCG. If is still suspected, a first morning urinespecimen should be collected 48 hours later and tested. ALP [Catalytic activity/Vol] 63 U/L 45-[address] [facility] Work Phone: [phone] ALT [Catalytic activity/Vol] 23 U/L 13-[address] [facility] Work Phone: [phone] CO2 [Moles/Vol] 27.0 mmol/L 21.0-32.[address] [facility] Work Phone: [phone] Globulin (S) [Mass/Vol] 3.7 g/dL 2.2-4.2 [facility] Work Phone: [phone] Lipase [Catalytic activity/Vol] 128 U/L 73-[address] [facility] Work Phone: [phone] Urea nitrogen/Creatinine [Mass ratio] 17.6 mg/mg 10-[address] [facility] Work Phone: [phone] Laboratory - Hematology and Cell countson 03-24-2022 Erythrocyte distribution width (RBC) [Entitic vol] 40.8 fL 35.1-43.[address] [facility] Work Phone: [phone] Erythrocyte distribution width (RBC) [Ratio] 12.5 % 11.6-14.[address] [facility] Work Phone: [phone] Immature granulocytes/100 WBC (Bld) 0.300 % 0.0-0.[address] [facility] Work Phone: [phone] Comment on above: IG% - Immature Granu locytes (promyelocytes, myelocytes and metamyelocytes) > 1% indicates that a LEFT SHIFT is Present. MCH (RBC) [Entitic mass] 30.1 pg 27.0-32.[address] [facility] Work Phone: [phone] Nucleated RBC/100 WBC (Bld) [Ratio] 0 % 0-[address] [facility] Work Phone: [phone] MCHC Auto (RBC) [Mass/Vol]on 03-24-2022 MCHC (RBC) [Mass/Vol] 34.2 g/dL 32-36 [facility] Work Phone: [phone] Mucus LM Ql (Urine sed)on Mucus Ql (Urine sed) 0 SEEN /hpf [facility] Work Phone: [phone] Nitrite Test strip Ql (U)on 03-24-2022 Nitrite Ql (U) Negative Negative [facility] Work Phone: [phone] Panel Informationon 03-24 Estimated Creatinine Clearance Calc 111.82 ml/min [facility] Work Phone: [phone] Estimated GFR (MDRD) Amer 133 mL/min >[address] [facility] Work Phone: [phone] Comment on above: GFR Calc Estimated GFR (MDRD) Non-Af Amer 110 mL/min >[address] [facility] Work Phone: Comment on above: Non- GFR Calc Platelets bldon 03-24-2022 Platelets (Bld) [#/Vol] 263 10*3/uL 150-[address] [facility] Work Phone: Protein Test strip Ql (U)on 03-24-2022 Protein Ql (U) Negative Negative [facility] Work Phone: [phone] Serum or plasma albumin arnel urement (mass/volume)on 03-24-2022 Albumin [Mass/Vol] 3.6 g/dL 3.2-5.0 [facility] Work Phone: Serum or plasma calcium arnel urement (mass/volume)on 03-24-2022 Calcium [Mass/Vol] 9.2 mg/dL 8.5-10.1 [facility] Work Phone: Serum or plasma creatinine m easurement (mass/volume)on 03-24-2022 Creatinine [Mass/Vol] 0.68 mg/dL 0.55-1.02 [facility] Work Phone: Comment on above: The validity of the calculated GFR & GFRAA in patients over 70 years has not been determined. Clinical correlation is essential. Serum or plasma urea nitroge n measurement (mass/volume)on 03-24-2022 Urea nitrogen [Mass/Vol] 12 mg/dL 03-[address] [facility] Work Phone: Squamous epithelial cells de tection in urine sediment by light microscopyon 03-24-2022 Epithelial cells.squamous LM Ql (Urine sed) 0 SEEN /hpf 5-[address] [facility] Work Phone: Thin prep Papanicolaou smear with manual screeningon 03-24-2022 Thin prep Papanicolaou smear with manual screening 14 U/L 15-[address] [facility] Work Phone: [phone] Thin prep Papanicolaou smear with manual screening 6 5-[address] [facility] Work Phone: Urine blood detectionon 03-07 RBC Ql (U) Negative Negative [facility] Work Phone: RBC Ql (U) 0 SEEN /hpf 0-[address] [facility] Work Phone: Urine clarityon 03-24-2022 Clarity (U) Clear Clear [facility] Work Phone: Urine color determinationon 03-24-2022 Color (U) Yellow Yellow [facility] Work Phone: Urine glucose detectionon Glucose Ql (U) Normal mg/dl Normal [facility] Work Phone: Urine leukocyte esterase det ection by dipstickon 03-24-2022 Leukocyte esterase Test strip Ql (U) Negative Negative [facility] Work Phone: Urine pHon 03-24-2022 pH (U) 6.0 [pH] 5.0 - 8.[address] [facility] Work Phone: Urine sediment bacteria coun t by microscopy (number/high power field)on 03-24-2022 Bacteria LM.HPF (Urine sed) [#/Area] 2 /[HPF] None Seen [facility] Work Phone: Urine specific gravity measu rementon 03-24-2022 Specific gravity (U) [Rel density] 1.015 1.002-1.[address] 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 Pathology Reports Accession: Collected Date/Time: Received Date/Time: Pathologist: [id number] 04/16/2020 08:22 EDT 04/18/2020 18:[address] Grader Operator Cytology Report SPECIMEN: Specimen Description: Liquid Prep Reflex ASCUS+ Specimen: Cervical/Endocervical Screening or Diagnostic: Screening RELEVANT HISTORY: LMP: unknown [id number] SPECIMEN ADEQUACY: SATISFACTORY FOR EVALUATION ENDOCERVICAL/TRANSFORM ATIONAL ZONE COMPONENT ABSENT/INSUFFICIENT INTERPRETATION/RESULTS : NEGATIVE FOR INTRAEPITHELIAL LESION OR MALIGNANCY COMMENT: This Pap Test was successfully processed and evaluated with the assistance of the Fracture ThinPrep Test Imaging System. Electronically Signed by Pathology report verified by [facility] Screened by: KK Electronically signed by Kira GUTHRIE (ASC) Sign-Out Date: 05/01/2020 10:21 Performing Lab: [facility], [address] [place] [address] Disclaimer The Pap test is a screening test for cervical cancer. As evidenced by published data, it is subject to both inherent false negative and false positive results. Your patient's results should be interpreted in context with pertinent clinical history including gynecological examination. Normal [facility] ([place]) Comment on above: Performed By: #### G YCR #### [place] [address] HEP B SURF AB QUANT [QUEST]o n 06-27-2018 HEP B SURF AB QUANT [QUEST] Normal [facility] Comment on above: Result Comment: _HEP B SURF AB QUANT_HEPATITIS B SURFACE ANTIBODY IMMUNITY, (QUANT)Reported: 06/26/2018 20:35 Status=F TEST RESULT FLAG RANGE UNITS HEP B SURF AB IMMUNITY,QN >1000 >=10 mIU/mL 06/26/[id number] HAS IMMUNITY TO HEPATITIS B VIRUS.For more information on this test, go to:[email or web address] Performed by [facility],[address] [place] [address] [id number] Avila M.D., Ph.D., Director of [phone], CLIA [id number] Performed By: #### 2 [id number] ####[facility],[address] [place] [address] NICOTINE AND METABOLITE URIN E [QUEST]on 10-13-2017 NICOTINE AND METABOLITE URINE [QUEST] Normal [facility] Comment on above: Result Comment: _NIC OTINE AND METABOLITE,URINE_NICOTINE AND COTININE, LC/MS/MS, URINEReported: 10/13/2017 12:58 Status=F TEST RESULT FLAG RANGE UNITS NICOTINE, URINE <2 ng/mL 10/13/17.1310.rfl.COMPLETE.AMRR .3854-7COTININE, URINE <2 ng/mL 10/13/17.1310.rfl.COMPLETE.AMRR .77017-9 Reference Range, Urine(ng/mL): Nicotine Smokers: 200-700 Nonsmokers: <=17 Cotinine Smokers: 300-1300 Nonsmokers: <=20Individuals exposed to second-hand or passive tobaccosmoke may demonstrate concentrations of nicotine andcotinine greater than those indicated for non-smokers.Test Performed by Mattie Ervin,[facility],[address] [place] [address] [id number] Avila M.D., Ph.D., Director of [phone], CLIA [id number] Performed By: #### 2 [id number] ####[facility],[address] [place] [address]257 MMR PROFILEon 10-12-2017 Protein mass conc Normal [facility] Comment on above: Result Comment: _MMR PROFILE_MMR (IGG) PANEL (MEASLES, MUMPS, RUBELLA)Reported: 10/12/2017 09:02 Status=F TEST RESULT FLAG RANGE UNITS MEASLES ANTIBODY (IGG) 107.00 >29.99 AU/mL 10/12/17.rfl.COMPLETE.AMRR .5244-9AU/mL Interpretation===== <25.00 Kwllaczv06.00 - 29.99 Equivocal>29.99 PositiveA positive result indicates that the patient hasantibody to measles virus. It does not differentiatebetween an active or past infection. The clinicaldiagnosis must be interpreted in conjunction withclinical signs and symptoms of the patient.MUMPS VIRUS ANTIBODY 37.30 >10.99 AU/mL 10/12/17.rfl.COMPLETE.AMRR .96913-2(IGG) AU/mL Interpretation < 9.00 Negative 9.00 - [...] or current infection withRubella virus.Test Performed by [facility],[address] [place] [address] [id number] Avila M.D., Ph.D., Director of [phone], [facility] [id number] Performed By: #### 2 [id number] ####[facility],[address] [place] [address] HEP B SURF AB QUANT [QUEST]o n 10-11-2017 HEP B SURF AB QUANT [QUEST] Normal [facility] Comment on above: Result Comment: _HEP B SURF AB QUANT_HEPATITIS B SURFACE ANTIBODY IMMUNITY, (QUANT)Reported: 10/11/2017 19:47 Status=F TEST RESULT FLAG RANGE UNITS HEP B SURF AB IMMUNITY,QN 6 L >=10 mIU/mL 10/11/17.1959.rflJARRELL.AMRR .5193-8PATIENT DOES NOT HAVE IMMUNITY TO HEPATITIS B VIRUS.For more information on this test, go to:[email or web address] Performed by Mattie Ervin,[facility],[address] [place] [address] [id number] Avila M.D., Ph.D., Director of [phone], [facility] [id number] Performed By: #### 2 [id number] ####[facility],[address] [place] [address] DRUG SCREEN URINE MEDICon AMPHETAMINES Negative [facility] Comment on above: Performed By: #### 2 79514 ####[facility],[address] [place] [address] B-DIAZEPINES Negative [facility] Comment on above: Performed By: #### 2 [id number] ####[facility],[address] [place] [address] BARBITURATES Negative [facility] Comment on above: Performed By: #### 2 [id number] ####[facility],[address] [place] [address] COCAINE Negative [facility] Comment on above: Performed By: #### 2 82480 ####[facility],[address] [place] [address] DRUG SCREEN URINE MEDIC Normal [facility] Comment on above: Result Comment: DRUG SCREEN - URINE Performed By: #### 2 83334 ####[facility],[address] [place] [address] METHADONE Negative [facility] Comment on above: Performed By: #### 2 05406 ####[facility],[address] [place] [address] OPIATES Negative [facility] Comment on above: Performed By: #### 2 67080 ####[facility],[address] [place] [address] 39275 PCP Negative Normal [facility] Comment on above: Performed By: #### 2 84854 ####[facility],[address] [place] [address] 33954 TCA Negative Normal [facility] Comment on above: Performed By: #### 2 85481 ####[facility],[address] [place] [address] 25473 THC Negative Normal [facility] Comment on above: Result Comment: DOMINGA ENTS RECEIVING PROTON PUMP INHIBITORS MAY DEMONSTRATE FALSE POSITIVETHC/CANNABINOID RESULTS. AN ALTERNATIVE CONFIRMATORY METHOD SHOULD BE CONSIDEREDTO VERIFY POSITIVE RESULTS. Performed By: #### 2 [id number] ####[facility],[address] [place] [address] 61488 GLUCOSEon 10-08-2017 Glucose mass conc 90 mg/dL Normal 74 - 106 [facility] Comment on above: Performed By: #### 2 97165 ####[facility],[address] [place] [address] 71827 LIPID PROFILEon 10-08-2017 Cholesterol in HDL mass conc 48 mg/dL Normal 40 - 60 [facility] Comment on above: Performed By: #### 2 16005 ####[facility],[address] [place] [address] 60521 Cholesterol in LDL mass conc 124 mg/dl Normal 0 - 129 [facility] Comment on above: Performed By: #### 2 34470 ####[facility],[address] [place] [address] 94629 Cholesterol mass conc 199 mg/dL Normal 0 - 200 [facility] Comment on above: Performed By: #### 2 [id number] ####[facility],[address] [place] [address] 14813 Cholesterol.total/Onofre sterol in HDL mass ratio 4.1 {ratio} Normal 0.0 - 5.0 [facility] Comment on above: Performed By: #### 2 27100 ####[facility],[address] [place] [address] Protein mass conc Normal [facility] Comment on above: Result Comment: LIPI D PROFILE Performed By: #### 2 01677 ####[facility],[address] [place] [address] Triglyceride mass conc 136 mg/dL Normal 0 - 150 [facility] Comment on above: Performed By: #### 2 09658 ####[facility],[address] [place] [address] Culture, urine Bacteria identified Cx Nom (U) GNR lactose java web architect [facility] Work Phone: Vital Signs Date Time Vital Sign Value Performing Clinician Facility 04-17-2025 09:45-0400 Body height 162.[address] Allyssa Velarde DO Work Phone: [facility] 04-17-2025 09:43-0400 Body mass index (BMI) [Ratio] 28.6 kg/m2 Dr. Allyssa Velarde DO Work Phone: [facility] 04-17-2025 09:43-0400 Body weight 75.[address] Allyssa Velarde DO Work Phone: [facility] 04-17-2025 09:43-0400 Diastolic blood pressure 84 mm[Hg] Dr. Allyssa Velarde DO Work Phone: [facility] 04-17-2025 09:43-0400 Systolic blood pressure 125 mm[Hg] Dr. Allyssa Velarde DO Work Phone: [facility] 04-13-2025 10:04-0400 Body height 162.[address] Allyssa Velarde DO Work Phone: [facility] 04-13-2025 10:04-0400 Body mass index (BMI) [Ratio] 29.2 kg/m2 Dr. Allyssa Velarde DO Work Phone: [facility] 04-13-2025 10:04-0400 Body weight 77.[address] Allyssa Velarde DO Work Phone: [facility] 04-13-2025 10:04-0400 Diastolic blood pressure 83 mm[Hg] Dr. Allyssa Velarde DO Work Phone: [facility] 04-13-2025 10:04-0400 Systolic blood pressure 116 mm[Hg] Dr. Allyssa Velarde DO Work Phone: [facility] 04-03-2025 10:21-0400 Body height 162.[address] Allyssa Velarde DO Work Phone: [facility] 04-03-2025 10:21-0400 Body mass index (BMI) [Ratio] 28.3 kg/m2 Dr. Allyssa Velarde DO Work Phone: [facility] 04-03-2025 10:21-0400 Body weight 74.[address] Allyssa Velarde DO Work Phone: [facility] 04-03-2025 10:21-0400 Diastolic blood pressure 74 mm[Hg] Dr. Allyssa Velarde DO Work Phone: [facility] 04-03-2025 10:21-0400 Systolic blood pressure 116 mm[Hg] Dr. Allyssa Velarde DO Work Phone: [facility] 03-30-2025 14:46-0400 Body height 162.[address] Allyssa Velarde DO Work Phone: [facility] 03-30-2025 14:46-0400 Body mass index (BMI) [Ratio] 28.3 kg/m2 Dr. Allyssa Velarde DO Work Phone: [facility] 03-30-2025 14:46-0400 Body weight 74.[address] Allyssa Velarde DO Work Phone: [facility] 03-30-2025 14:46-0400 Diastolic blood pressure 68 mm[Hg] Dr. Allyssa Velarde DO Work Phone: [facility] 03-30-2025 14:46-0400 Systolic blood pressure 100 mm[Hg] Dr. Allyssa Velarde DO Work Phone: [facility] 03-26-2025 08:56-0400 Body height 162.[address] Allyssa Velarde DO Work Phone: [facility] 03-26-2025 08:56-0400 Body mass index (BMI) [Ratio] 27.8 kg/m2 Dr. Allyssa Velarde DO Work Phone: [facility] 03-26-2025 08:56-0400 Body temperature 97.7 [degF] Dr. Allyssa Velarde DO Work Phone: [facility] 03-26-2025 08:56-0400 Body weight 73.[address] Allyssa Velarde DO Work Phone: [facility] 03-26-2025 08:56-0400 Diastolic blood pressure 62 mm[Hg] Dr. Allyssa Velarde DO Work Phone: [facility] 03-26-2025 08:56-0400 Heart rate 88 /min Dr. Allyssa Velarde DO Work Phone: [facility] 03-26-2025 08:56-0400 Respiratory rate 16 /min Dr. Allyssa Velarde DO Work Phone: [facility] 03-26-2025 08:56-0400 SaO2% (BldA) [Mass fraction] 96 % Dr. Allyssa Velarde DO Work Phone: [facility] 03-26-2025 08:56-0400 Systolic blood pressure 100 mm[Hg] Dr. Allyssa Velarde DO Work Phone: [facility] 03-20-2025 09:36-0400 Body height 162.[address] Allyssa Velarde DO Work Phone: [facility] 03-20-2025 09:36-0400 Body mass index (BMI) [Ratio] 27.8 kg/m2 Dr. Allyssa Velarde DO Work Phone: [facility] 03-20-2025 09:36-0400 Body weight 73.[address] Allyssa Velarde DO Work Phone: [facility] 03-20-2025 09:36-0400 Diastolic blood pressure 64 mm[Hg] Dr. Allyssa Velarde DO Work Phone: [facility] 03-20-2025 09:36-0400 Systolic blood pressure 98 mm[Hg] Dr. Allyssa Velarde DO Work Phone: [facility] 03-08-2025 10:30-0400 Body height 162.[address] Allyssa Velarde DO Work Phone: [facility] 03-08-2025 10:26-0400 Body mass index (BMI) [Ratio] 27.8 kg/m2 Dr. Allyssa Velarde DO Work Phone: [facility] 03-08-2025 10:26-0400 Body weight 73.[address] Allyssa Velarde DO Work Phone: [facility] 03-08-2025 10:26-0400 Diastolic blood pressure 66 mm[Hg] Dr. Allyssa Velarde DO Work Phone: [facility] 03-08-2025 10:26-0400 Systolic blood pressure 97 mm[Hg] Dr. Allyssa Velarde DO Work Phone: [facility] 02-24-2025 11:08-0400 Body height 162.[address] Allyssa Velarde DO Work Phone: [facility] 02-24-2025 11:08-0400 Body mass index (BMI) [Ratio] 28.1 kg/m2 Dr. Allyssa Velarde DO Work Phone: [facility] 02-24-2025 11:08-0400 Body weight 74.[address] Allyssa Velarde DO Work Phone: [facility] 02-24-2025 11:08-0400 Diastolic blood pressure 79 mm[Hg] Dr. Allyssa Velarde DO Work Phone: [facility] 02-24-2025 11:08-0400 Systolic blood pressure 126 mm[Hg] Dr. Allyssa Velarde DO Work Phone: [facility] 02-06-2025 11:11-0400 Body height 162.[address] Allyssa Velarde DO Work Phone: [facility] 02-06-2025 11:11-0400 Body mass index (BMI) [Ratio] 27.8 kg/m2 Dr. Allyssa Velarde DO Work Phone: [facility] 02-06-2025 11:11-0400 Body weight 73.[address] Allyssa Velarde DO Work Phone: [facility] 02-06-2025 11:11-0400 Diastolic blood pressure 75 mm[Hg] Dr. Allyssa Velarde DO Work Phone: [facility] 02-06-2025 11:11-0400 Systolic blood pressure 112 mm[Hg] Dr. Allyssa Velarde DO Work Phone: [facility] 01-23-2025 10:17-0400 Body height 162.[address] Allyssa Velarde DO Work Phone: [facility] 01-23-2025 10:17-0400 Body mass index (BMI) [Ratio] 27.7 kg/m2 Dr. Allyssa Velarde DO Work Phone: [facility] 01-23-2025 10:17-0400 Body weight 73.[address] Allyssa Velarde DO Work Phone: [facility] 01-23-2025 10:17-0400 Diastolic blood pressure 75 mm[Hg] Dr. Allyssa Velarde DO Work Phone: [facility] 01-23-2025 10:17-0400 Systolic blood pressure 107 mm[Hg] Dr. Allyssa Velarde DO Work Phone: [facility] 12-28-2024 14:53-0400 Body mass index (BMI) [Ratio] 27.3 kg/m2 Dr. Allyssa Velarde DO Work Phone: [facility] 12-28-2024 14:53-0400 Body weight 72.[address] Allyssa Velarde DO Work Phone: [facility] 12-28-2024 14:53-0400 Diastolic blood pressure 74 mm[Hg] Dr. Allyssa Velarde DO Work Phone: [facility] 12-28-2024 14:53-0400 Systolic blood pressure 110 mm[Hg] Dr. Allyssa Velarde DO Work Phone: [facility] 12-02-2024 09:59-0400 Body mass index (BMI) [Ratio] 27.4 kg/m2 Dr. Allyssa Velarde DO Work Phone: [facility] 12-02-2024 09:59-0400 Body weight 72.[address] Alylssa Velarde DO Work Phone: [facility] 12-02-2024 09:59-0400 Diastolic blood pressure 70 mm[Hg] Dr. Allyssa Velrade DO Work Phone: [facility] 12-02-2024 09:59-0400 Systolic blood pressure 118 mm[Hg] Dr. Allyssa Velarde DO Work Phone: [facility] 11-19-2024 00:00-0400 Heart rate 81 /min Dr. Allyssa Velarde DO Work Phone: [facility] 11-19-2024 00:00-0400 Respiratory rate 21 /min Dr. Allyssa Velarde DO Work Phone: [facility] 11-19-2024 00:00-0400 SaO2% (BldA) [Mass fraction] 97 % Dr. Allyssa Velarde DO Work Phone: [facility] 11-18-2024 22:00-0400 Diastolic blood pressure 66 mm[Hg] Dr. Allyssa Velarde DO Work Phone: [facility] 11-18-2024 22:00-0400 Systolic blood pressure 107 mm[Hg] Dr. Allyssa Velarde DO Work Phone: [facility] 11-18-2024 18:02-0400 Body height 162.[address] Allyssa Velarde DO Work Phone: [facility] 11-18-2024 18:02-0400 Body mass index (BMI) [Ratio] 26.6 kg/m2 Dr. Allyssa Velarde DO Work Phone: [facility] 11-18-2024 18:02-0400 Body temperature 98 [degF] Dr. Allyssa Velarde DO Work Phone: [facility] 11-18-2024 18:02-0400 Body weight 70.[address] Allyssa Velarde DO Work Phone: [facility] 11-18-2024 08:37-0400 Body temperature 97.39 [degF] Wenceslao Short Jr., EGG GRADER.TRANSLATIONAL SPECIALIST Work Phone: [facility] 11-18-2024 08:37-0400 Body weight 70.94 kg Wenceslao Short Jr., EGG GRADER.TRANSLATIONAL SPECIALIST Work Phone: [facility] 11-18-2024 08:37-0400 Diastolic blood pressure 71 mm[Hg] Wenceslao Short Jr., EGG GRADER.TRANSLATIONAL SPECIALIST Work Phone: [facility] 11-18-2024 08:37-0400 Heart rate 110 /min Wenceslao Short Jr., EGG GRADER.TRANSLATIONAL SPECIALIST Work Phone: [facility] 11-18-2024 08:37-0400 Respiratory rate 18 /min Wenceslao Short Jr., EGG GRADER.TRANSLATIONAL SPECIALIST Work Phone: [facility] 11-18-2024 08:37-0400 SaO2% (BldA) [Mass fraction] 99 % Wenceslao Short Jr., EGG GRADER.TRANSLATIONAL SPECIALIST Work Phone: [facility] 11-18-2024 08:37-0400 Systolic blood pressure 106 mm[Hg] Wenceslao Short Jr., EGG GRADER.TRANSLATIONAL SPECIALIST Work Phone: [facility] 11-02-2024 14:21-0500 Body mass index (BMI) [Ratio] 27.4 kg/m2 Dr. Allyssa Velarde DO Work Phone: [facility] 11-02-2024 14:21-0500 Body weight 72.[address] Allyssa Vlearde DO Work Phone: [facility] 11-02-2024 14:21-0500 Diastolic blood pressure 85 mm[Hg] Dr. Allyssa Velarde DO Work Phone: [facility] 11-02-2024 14:21-0500 Systolic blood pressure 122 mm[Hg] Dr. Allyssa Velarde DO Work Phone: [facility] 10-05-2024 12:36-0500 Body mass index (BMI) [Ratio] 28.1 kg/m2 Dr. Allyssa Velarde DO Work Phone: [facility] 10-05-2024 12:36-0500 Body weight 74.[address] Allyssa Velarde DO Work Phone: [facility] 10-05-2024 12:36-0500 Diastolic blood pressure 75 mm[Hg] Dr. Allyssa Velarde DO Work Phone: [facility] 10-05-2024 12:36-0500 Systolic blood pressure 120 mm[Hg] Dr. Allyssa Velarde DO Work Phone: [facility] 09-26-2023 12:12-0500 Body temperature 97.8 [degF] Dr. Allyssa Velarde Work Phone: [facility] 09-26-2023 12:12-0500 Heart rate 74 /min Dr. Allyssa Velarde Work Phone: [facility] 09-26-2023 12:12-0500 Respiratory rate 16 /min Dr. Allyssa Velarde Work Phone: [facility] 09-26-2023 12:12-0500 SaO2% (BldA) [Mass fraction] 98 % Dr. Allyssa Velarde Work Phone: [facility] 09-26-2023 11:19-0500 Diastolic blood pressure 71 mm[Hg] Dr. Allyssa Velarde Work Phone: [facility] 09-26-2023 11:19-0500 Systolic blood pressure 136 mm[Hg] Dr. Allyssa Velarde Work Phone: [facility] 09-24-2023 10:17-0500 Body height 162.[address] Allyssa Velarde Work Phone: [facility] 09-24-2023 10:17-0500 Body mass index (BMI) [Ratio] 31.4 kg/m2 Dr. Allyssa Velarde Work Phone: [facility] 09-24-2023 10:17-0500 Body weight 83.[address] Allyssa Velarde Work Phone: [facility] 09-23-2023 14:24-0500 Body mass index (BMI) [Ratio] 31.1 kg/m2 Dr. Allyssa Velarde Work Phone: [facility] 09-23-2023 14:24-0500 Body weight 82.[address] Allyssa Velarde Work Phone: [facility] 09-23-2023 14:24-0500 Diastolic blood pressure 86 mm[Hg] Dr. Allyssa Velarde Work Phone: [facility] 09-23-2023 14:24-0500 Systolic blood pressure 128 mm[Hg] Dr. Allyssa Velarde Work Phone: [facility] 09-18-2023 12:12-0500 Body mass index (BMI) [Ratio] 31.2 kg/m2 Dr. Allyssa Velarde Work Phone: [facility] 09-18-2023 12:12-0500 Body weight 82.[address] Allyssa Velarde Work Phone: [facility] 09-18-2023 12:12-0500 Diastolic blood pressure 84 mm[Hg] Dr. Allyssa Velarde Work Phone: [facility] 09-18-2023 12:12-0500 Systolic blood pressure 124 mm[Hg] Dr. Allyssa Velarde Work Phone: [facility] 09-10-2023 14:46-0500 Body mass index (BMI) [Ratio] 31.2 kg/m2 Dr. Allyssa Velarde Work Phone: [facility] 09-10-2023 14:46-0500 Body weight 82.[address] Allyssa Velarde Work Phone: [facility] 09-10-2023 14:46-0500 Diastolic blood pressure 79 mm[Hg] Dr. Allyssa Velarde Work Phone: [facility] 09-10-2023 14:46-0500 Systolic blood pressure 118 mm[Hg] Dr. Allyssa Velarde Work Phone: [facility] 09-02-2023 08:28-0500 Body height 162.[address] Allyssa Velarde Work Phone: [facility] 09-02-2023 08:28-0500 Body mass index (BMI) [Ratio] 30.7 kg/m2 Dr. Allyssa Velarde Work Phone: [facility] 09-02-2023 08:28-0500 Body weight 81.[address] Allyssa Velarde Work Phone: [facility] 09-02-2023 08:28-0500 Diastolic blood pressure 82 mm[Hg] Dr. Allyssa Velarde Work Phone: [facility] 09-02-2023 08:28-0500 Heart rate 86 /min Dr. Allyssa Velarde Work Phone: [facility] 09-02-2023 08:28-0500 Systolic blood pressure 126 mm[Hg] Dr. Allyssa Velarde Work Phone: [facility] 08-26-2023 14:09-0500 Body mass index (BMI) [Ratio] 30.6 kg/m2 Dr. Allyssa Velarde Work Phone: [facility] 08-26-2023 14:09-0500 Body weight 80.[address] Allyssa Velarde Work Phone: [facility] 08-26-2023 14:09-0500 Diastolic blood pressure 82 mm[Hg] Dr. Allyssa Velarde Work Phone: [facility] 08-26-2023 14:09-0500 Systolic blood pressure 126 mm[Hg] Dr. Allyssa Velarde Work Phone: [facility] 08-10-2023 10:54-0500 Body mass index (BMI) [Ratio] 29.7 kg/m2 Dr. Allyssa Velarde Work Phone: [facility] 08-10-2023 10:54-0500 Body weight 78.[address] Allyssa Velarde Work Phone: [facility] 08-10-2023 10:54-0500 Diastolic blood pressure 66 mm[Hg] Dr. Allyssa Velarde Work Phone: [facility] 08-10-2023 10:54-0500 Systolic blood pressure 108 mm[Hg] Dr. Allyssa Velarde Work Phone: [facility] 07-23-2023 16:07-0500 Body height 162.[address] Allyssa Velarde Work Phone: [facility] 07-23-2023 16:06-0500 Body mass index (BMI) [Ratio] 29.5 kg/m2 Dr. Allyssa Velarde Work Phone: [facility] 07-23-2023 16:06-0500 Body weight 78.[address] Allyssa Velarde Work Phone: [facility] 07-23-2023 16:06-0500 Diastolic blood pressure 79 mm[Hg] Dr. Allyssa Velarde Work Phone: [facility] 07-23-2023 16:06-0500 Systolic blood pressure 114 mm[Hg] Dr. Allyssa Velarde Work Phone: [facility] 07-20-2023 14:34-0500 Body temperature 98.3 [degF] Dr. Allyssa Velarde Work Phone: [facility] 07-20-2023 14:34-0500 Diastolic blood pressure 74 mm[Hg] Dr. Allyssa Velarde Work Phone: [facility] 07-20-2023 14:34-0500 Heart rate 103 /min Dr. Allyssa Velarde Work Phone: [facility] 07-20-2023 14:34-0500 Respiratory rate 12 /min Dr. Allyssa Velarde Work Phone: [facility] 07-20-2023 14:34-0500 SaO2% (BldA) [Mass fraction] 97 % Dr. Allyssa Velarde Work Phone: [facility] 07-20-2023 14:34-0500 Systolic blood pressure 118 mm[Hg] Dr. Allyssa Velarde Work Phone: [facility] 07-08-2023 13:51-0400 Body height 162.[address] Allyssa Velarde Work Phone: [facility] 07-08-2023 13:48-0400 Body mass index (BMI) [Ratio] 28.5 kg/m2 Dr. Allyssa Velarde Work Phone: [facility] 07-08-2023 13:48-0400 Body weight 75.[address] Allyssa Velarde Work Phone: [facility] 07-08-2023 13:48-0400 Diastolic blood pressure 73 mm[Hg] Dr. Allyssa Velarde Work Phone: [facility] 07-08-2023 13:48-0400 Systolic blood pressure 117 mm[Hg] Dr. Allyssa Velarde Work Phone: [facility] 06-10-2023 14:05-0400 Body mass index (BMI) [Ratio] 28.2 kg/m2 Dr. Allyssa Velarde Work Phone: [facility] 06-10-2023 14:05-0400 Body weight 74.[address] Allyssa Velarde Work Phone: [facility] 06-10-2023 14:05-0400 Diastolic blood pressure 78 mm[Hg] Dr. Allyssa Velarde Work Phone: [facility] 06-10-2023 14:05-0400 Systolic blood pressure 108 mm[Hg] Dr. Allyssa Velarde Work Phone: [facility] 05-13-2023 13:31-0400 Body height 162.[address] Allyssa Velarde Work Phone: [facility] 05-13-2023 13:31-0400 Body mass index (BMI) [Ratio] 27.3 kg/m2 Dr. Allyssa Velarde Work Phone: [facility] 05-13-2023 13:31-0400 Body weight 72.[address] Allyssa Velarde Work Phone: [facility] 05-13-2023 13:31-0400 Diastolic blood pressure 72 mm[Hg] Dr. Allyssa Velarde Work Phone: [facility] 05-13-2023 13:31-0400 Systolic blood pressure 118 mm[Hg] Dr. Allyssa Velarde Work Phone: [facility] 04-14-2023 10:07-0400 Body mass index (BMI) [Ratio] 26.6 kg/m2 Dr. Allyssa Velarde Work Phone: [facility] 04-14-2023 10:07-0400 Body weight 70.[address] Allyssa Velarde Work Phone: [facility] 04-14-2023 10:07-0400 Diastolic blood pressure 74 mm[Hg] Dr. Allyssa Velarde Work Phone: [facility] 04-14-2023 10:07-0400 Systolic blood pressure 108 mm[Hg] Dr. Allyssa Velarde Work Phone: [facility] 03-16-2023 16:06-0400 Body height 162.[address] Allyssa Velarde Work Phone: [facility] 03-16-2023 16:06-0400 Body mass index (BMI) [Ratio] 27 kg/m2 Dr. Allyssa Velarde Work Phone: [facility] 03-16-2023 16:06-0400 Body weight 71.[address] Allyssa Velarde Work Phone: [facility] 03-16-2023 16:06-0400 Diastolic blood pressure 73 mm[Hg] Dr. Allyssa Velarde Work Phone: [facility] 03-16-2023 16:06-0400 Systolic blood pressure 119 mm[Hg] Dr. Allyssa Velarde Work Phone: [facility] 02-19-2023 15:09-0400 Body height 162.[address] Allyssa Velarde Work Phone: [facility] 02-19-2023 15:09-0400 Body mass index (BMI) [Ratio] 26.9 kg/m2 Dr. Allyssa Velarde Work Phone: [facility] 02-19-2023 15:09-0400 Body weight 71.[address] Allyssa Velarde Work Phone: [facility] 02-19-2023 15:09-0400 Diastolic blood pressure 81 mm[Hg] Dr. Allyssa Velarde Work Phone: [facility] 02-19-2023 15:09-0400 Systolic blood pressure 123 mm[Hg] Dr. Allyssa Velarde Work Phone: [facility] 11-27-2022 09:42-0400 Body mass index (BMI) [Ratio] 27.6 kg/m2 Dr. Allyssa Velarde Work Phone: [facility] 11-27-2022 09:42-0400 Body weight 73.[address] Allyssa Velarde Work Phone: [facility] 11-27-2022 09:42-0400 Diastolic blood pressure 82 mm[Hg] Dr. Allyssa Velarde Work Phone: [facility] 11-27-2022 09:42-0400 Systolic blood pressure 122 mm[Hg] Dr. Allyssa Velarde Work Phone: [facility] 2022 17:17-0400 Body temperature 98.8 [degF] Dr. Allyssa Velarde Work Phone: [facility] Work Phone: 2022 17:17-0400 Diastolic blood pressure 82 mm[Hg] Dr. Allyssa Velarde Work Phone: [facility] Work Phone: 2022 17:17-0400 Heart rate 85 /min Dr. Allyssa Velarde Work Phone: [facility] Work Phone: 2022 17:17-0400 Respiratory rate 16 /min Dr. Allyssa Velarde Work Phone: [facility] Work Phone: 2022 17:17-0400 SaO2% (BldA) [Mass fraction] 100 % Dr. Allyssa Velarde Work Phone: [facility] Work Phone: 2022 17:17-0400 Systolic blood pressure 113 mm[Hg] Dr. Allyssa Velarde Work Phone: [facility] Work Phone: 2022 12:50-0400 Body height 165.[address] Allyssa Velarde Work Phone: [facility] Work Phone: 2022 12:50-0400 Body mass index (BMI) [Ratio] 24.2 kg/m2 Dr. Allyssa Velarde Work Phone: [facility] Work Phone: 2022 12:50-0400 Body weight [address] Allyssa Velarde Work Phone: [facility] Work Phone: 03-28-2022 08:05-0400 Body mass index (BMI) [Ratio] 25 kg/m2 Dr. Allyssa Velarde Work Phone: [facility] Work Phone: 03-28-2022 08:05-0400 Body weight 68.[address] Allyssa Velarde Work Phone: [facility] Work Phone: 03-28-2022 08:05-0400 Diastolic blood pressure 80 mm[Hg] Dr. Allyssa Velarde Work Phone: [facility] Work Phone: 03-28-2022 08:05-0400 Respiratory rate 16 /min Dr. Allyssa Velarde Work Phone: [facility] Work Phone: 03-28-2022 08:05-0400 Systolic blood pressure 116 mm[Hg] Dr. Allyssa Velarde Work Phone: [facility] Work Phone: 03-24-2022 08:33-0400 Respiratory rate 16 /min Dr. Allyssa Velarde Work Phone: [facility] Work Phone: 03-24-2022 06:34-0400 Diastolic blood pressure 79 mm[Hg] Dr. Allyssa Velarde Work Phone: [facility] Work Phone: 03-24-2022 06:34-0400 Heart rate 83 /min Dr. Allyssa Velarde Work Phone: [facility] Work Phone: 03-24-2022 06:34-0400 SaO2% (BldA) [Mass fraction] 99 % Dr. Allyssa Velarde Work Phone: [facility] Work Phone: 03-24-2022 06:34-0400 Systolic blood pressure 114 mm[Hg] Dr. Allyssa Velarde Work Phone: [facility] Work Phone: 03-24-2022 04:52-0400 Body height 165.[address] Allyssa Velarde Work Phone: [facility] Work Phone: 03-24-2022 04:52-0400 Body mass index (BMI) [Ratio] 25.8 kg/m2 Dr. Allyssa Velarde Work Phone: [facility] Work Phone: 03-24-2022 04:52-0400 Body temperature 99.1 [degF] Dr. Allyssa Velarde Work Phone: [facility] Work Phone: 03-24-2022 04:52-0400 Body weight 70.[address] Allyssa Velarde Work Phone: [facility] Work Phone: 03-04-2022 08:01-0400 Body height 165.[address] Allyssa Velarde Work Phone: [facility] Work Phone: 03-04-2022 08:01-0400 Body mass index (BMI) [Ratio] 23.9 kg/m2 Dr. Allyssa Velarde Work Phone: [facility] Work Phone: 03-04-2022 08:01-0400 Body weight 65.[address] Allyssa Velarde Work Phone: [facility] Work Phone: 03-04-2022 08:01-0400 Diastolic blood pressure 84 mm[Hg] Dr. Allyssa Velarde Work Phone: [facility] Work Phone: 03-04-2022 08:01-0400 Systolic blood pressure 132 mm[Hg] Dr. Allyssa Velarde Work Phone: [facility] Work Phone: Encounters Encounter Date Encounter Type Care Provider Facility Start: 04-24-2025 ambulatory Allyssa chapmany:[facility] Start: 04-17-2025 End: 04-17-[address] Crissy Rodas MD -[facility] Work Phone: Start: 04-17-2025 End: 04-17-[address] Allyssa Velarde DO Work Phone: -[facility] Start: 04-13-2025 End: 04-13-[address] Farrah Manning DO -[facility] Work Phone: Start: 04-13-2025 End: 04-13-[address] Allyssa Velarde DO Work Phone: -[facility] Start: 04-03-2025 End: 04-03-2025 Patient encounter procedure Corina Daniel CNM -[facility] Work Phone: Start: 04-03-2025 End: 04-03-[address] Allyssa Velarde DO Work Phone: -[facility] Start: 03-30-2025 End: 03-30-[address] Allyssa Velarde DO Work Phone: -Laboratory Specimen Start: 03-30-2025 End: 03-30-2025 Patient encounter procedure Corina Daniel CNM -Laboratory Specimen Work Phone: Start: 03-30-2025 End: 03-30-2025 Patient encounter procedure Corina Daniel CNM -[facility] Work Phone: Start: 03-30-2025 End: 03-30-[address] Allyssa Velarde DO Work Phone: -[facility] Start: 03-30-2025 End: 03-30-2025 ambulatory Allyssa Velarde Facility:[facility] Start: 03-28-2025 ambulatory Allyssa Velarde Facil ity:[facility] Start: 03-26-2025 End: 03-26-2025 [facility] Work Phone: Start: 03-26-2025 End: 03-26-[address] Allyssa Velarde DO Work Phone: [facility] Start: 03-20-2025 End: 03-20-2025 Patient encounter procedure Ida REGALADO -[facility] Work Phone: Start: 03-20-2025 End: 03-20-[address] Allyssa Velarde DO Work Phone: -[facility] Start: 03-20-2025 End: 03-20-2025 ambulatory Allyssa Velarde Facility:[facility] Start: 03-08-2025 End: 03-08-[address] Farrah Manning DO -[facility] Work Phone: Start: 03-08-2025 End: 03-08-[address] Allyssa Velarde DO Work Phone: -[facility] Start: 02-24-2025 End: 02-24-[address] Crissy Rodas MD -[facility] Work Phone: Start: 02-24-2025 End: 02-24-[address] Allyssa Velarde DO Work Phone: [facility] Work Phone: Start: 02-06-2025 End: 02-06-2025 Patient encounter procedure Corina Daniel CNM -[facility] Work Phone: Start: 02-06-2025 End: 02-06-[address] Allyssa Velarde DO Work Phone: [facility] Work Phone: Start: 01-23-2025 End: 01-23-2025 Patient encounter procedure Corina Daniel CNM -[facility] Work Phone: Start: 01-23-2025 End: 01-23-[address] Allyssa Velarde DO Work Phone: [facility] Work Phone: Start: 01-23-2025 End: 01-23-2025 ambulatory Farrah Manning Facility:[facility] Start: 12-28-2024 End: 12-28-2024 Patient encounter procedure Ida REGALADO -[facility] Work Phone: Start: 12-28-2024 End: 12-28-2024 ambulatory Allyssa Velarde Facility:[facility] Start: 12-28-2024 End: 12-28-2024 ambulatory Farrah Manning Facility:[facility] Start: 12-26-2024 End: 12-26-2024 ambulatory ALLYSSA VELARDE [facility] Start: 12-02-2024 End: 12-02-2024 Patient encounter procedure Ida REGALADO -[facility] Work Phone: Start: 12-02-2024 End: 12-02-2024 ambulatory Allyssa Velarde Facility:[facility] Start: 11-28-2024 End: 11-28-2024 ambulatory FARRAH MCKEON [facility] Start: 11-19-2024 End: 11-19-2024 Follow-up encounter Wenceslao Short APRN.TRANSLATIONAL SPECIALIST Work Phone: [facility] Comment on above: Results Start: 11-19-2024 End: 11-19-2024 Telephone encounter Wenceslao Short APRN.TRANSLATIONAL SPECIALIST Work Phone: [facility] Start: 11-18-2024 End: 11-19-2024 Emergency department patient visit Dr. Allyssa Velarde DO Work Phone: -Emergency Department Work Phone: Start: 11-18-2024 End: 11-18-2024 Patient encounter procedure Wenceslao Short APRN.TRANSLATIONAL SPECIALIST Work Phone: [facility] Comment on above: Congestion of nasal sinus (Primary Dx); Nausea and vomiting, unspecified vomiting type Start: 11-18-2024 End: 11-18-2024 ambulatory ALLYSSA VELARDE Facility:[id number] Start: 11-02-2024 End: 11-02-[address] Crissy Rodas MD -[facility] Work Phone: Start: 11-02-2024 End: 11-02-2024 ambulatory Allyssa Velarde Facility:[facility] Start: 10-13-2024 End: 10-13-[address] Farrah Manning DO -Laboratory Work Phone: Start: 10-13-2024 End: 10-13-2024 ambulatory Farrah Manning Facility:[facility] Start: 10-05-2024 End: 10-05-[address] Farrah Manning DO -Laboratory, Specimen Work Phone: Start: 10-05-2024 End: 10-05-[address] Farrah Manning DO -[facility] Work Phone: Start: 10-05-2024 End: 10-05-2024 ambulatory Allyssa Velarde Facility:[facility] Start: 10-05-2024 End: 10-05-2024 ambulatory Allyssa Velarde Facility:[facility] Start: 09-26-2023 Non-patient / Non-visit Dr. Allyssa Velarde Work Phone: [facility] Start: 09-25-2023 Non-patient / Non-visit Dr. Allyssa Velarde Work Phone: [facility] Start: 09-24-2023 Non-patient / Non-visit Dr. Allyssa Velarde Work Phone: [facility] Start: 09-24-2023 End: 09-26-2023 Evaluation and management of inpatient Dr. Allyssa Velarde Work Phone: [facility] Work Phone: Start: 09-23-2023 End: 09-23-[address] Allyssa Velarde Work Phone: [facility] Work Phone: Start: 09-18-2023 End: 09-18-[address] Allyssa Velarde Work Phone: [facility] Work Phone: Start: 09-10-2023 End: 09-10-[address] Allyssa Velarde Work Phone: [facility] Work Phone: Start: 09-10-2023 End: 09-10-[address] Allyssa Velarde Work Phone: [facility] Work Phone: Start: 09-02-2023 End: 09-02-[address] Allyssa Velarde Work Phone: [facility] Work Phone: Start: 09-02-2023 End: 09-02-[address] Allyssa Velarde Work Phone: [facility]-Laboratory, Specimen Work Phone: Start: 09-02-2023 End: 09-02-[address] Allyssa Velarde Work Phone: [facility] Work Phone: Start: 08-26-2023 End: 08-26-[address] Allyssa Velarde Work Phone: [facility] Work Phone: Start: 08-10-2023 End: 08-10-[address] Allyssa Velarde Work Phone: [facility] Work Phone: Start: 07-23-2023 End: 07-23-[address] Allyssa Velarde Work Phone: [facility] Work Phone: Start: 07-20-2023 End: 07-20-[address] Allyssa Velarde Work Phone: [facility] Work Phone: Start: 07-20-2023 End: 07-20-[address] Allyssa Velarde Work Phone: [facility] Work Phone: Start: 07-20-2023 End: 07-20-[address] [facility] Start: 07-08-2023 End: 07-08-[address] Allyssa Velarde Work Phone: [facility] Work Phone: Start: 07-04-2023 End: 07-04-[address] Allyssa Velarde Work Phone: [facility] Work Phone: Start: 07-04-2023 End: 07-04-[address] [facility] Start: 07-01-2023 End: 07-01-[address] [facility] Work [facility]: Start: 06-10-2023 End: 06-10-[address] Al[facility] Velarde [facility] Start: 06-10-2023 End: 06-10-[address] Allyssa Velarde Work Phone: [facility] Work Phone: Start: 06-10-2023 End: 06-10-[address] Allyssa Velarde Work Phone: [facility] Work Phone: Start: 05-13-2023 End: 05-13-[address] Allyssa Velarde Work Phone: [facility] Work Phone: Start: 05-13-2023 End: 05-13-[address] Allyssa Velarde Work Phone: [facility] Work Phone: Start: 05-13-2023 End: 05-13-[address] [facility] Work [facility]: Start: 04-14-2023 End: 04-14-[address] Allyssa Velarde Work Phone: [facility] Work Phone: Start: 04-13-2023 End: 04-13-[address] [facility] Velarde [facility] Work [facility]: Start: 03-16-2023 End: 03-16-[address] Allyssa Velarde Work Phone: [facility] Work Phone: Start: 03-16-2023 End: 03-16-[address] [facility] Velarde [facility] Work [facility]: Start: 03-12-2023 End: 03-12-[address] Allyssa Velarde Work Phone: [facility] Work Phone: Start: 03-12-2023 End: 03-12-[address] Allyssa Velarde Work Phone: [facility]-Laboratory, Pavilion Start: 02-23-2023 End: 02-23-[address] Allyssa Velarde Work Phone: [facility] Start: 02-19-2023 End: 02-19-[address] Allyssa Velarde Work Phone: [facility] Work Phone: Start: 02-19-2023 End: 02-19-[address] [facility] Start: 02-19-2023 End: 02-19-[address] Allyssa Velarde Work Phone: [facility] Start: 01-22-2023 End: 01-22-[address] [facility] Vel[facility] Start: 01-20-2023 End: 01-20-[address] [facility] Velarde [facility] Start: 11-27-2022 End: 11-27-[address] Allyssa Velarde Work Phone: [facility] Start: 11-19-2022 End: 11-19-[address] Allyssa Velarde Work Phone: [facility] Work Phone: Start: 11-19-2022 End: 11-19-[address] Al[facility] Velarde [facility] Start: 11-17-2022 End: 11-17-[address] Allyssa Velarde Work Phone: [facility] Work Phone: Start: 11-17-2022 End: 11-17-[address] Allyssa Velarde Work Phone: [facility]Laboratory[facility] Start: 09-30-2022 End: 09-30-[address] Al[facility] Vel[facility] Work Phone: [facility] Start: 09-25-2022 End: 09-25-[address] Allyssa Velarde Work Phone: [facility] Start: 2022 Non-patient / Non-visit Dr. Allyssa Velarde Work Phone: [facility] Start: 2022 End: 2022 Admission to same day surgery center [facility] Al[facility] Velarde [facility] Start: 03-28-2022 End: 03-28-[address] Allyssa Velarde Work Phone: [facility] Start: 03-24-2022 End: 03-24-2022 Emergency department patient visit Dr. Allyssa Velarde Work Phone: [facility]-Emergency Department Start: 03-05-2022 End: 03-05-[address] Allyssa Velarde Work Phone: [facility] Start: 03-04-2022 End: 03-04-[address] Allyssa Velarde Work Phone: [facility] Start: 03-04-2022 End: 03-04-[address] Allyssa Velarde Work Phone: [facility] Start: 06-03-2018 Patient encounter [employer] [facility] Start: 10-08-2017 End: 10-08-2017 Patient encounter [employer] [facility] Procedures Date Procedure Procedure Detail Performing [...] RSV Vaccine (1 - 1-dose 75+ series) [facility] Start: 08-26-2033 Urine microalbumin profile DTaP,Tdap,Td Vaccine (8 - Td or Tdap) [facility] Start: 03-20-2025 CBC W Auto Differential panel - Blood [facility] Start: 01-23-2025 CBC W Auto Differential panel - Blood [facility] Start: 01-23-2025 Measurement of glucose 2 hours after glucose challenge for glucose tolerance test [facility] Start: 01-23-2025 Serologic test for syphilis [facility] Start: 01-23-[address] [facility] Start: 11-18-[address] [facility] Start: 11-18-[address] [facility] Start: 11-18-2024 Bacteria identified in Urine by Culture Urine Culture [facility] Start: 05-08-2024 Covid-19 Vaccine ( season) Covid-19 Vaccine () [facility] Start: 09-26-2023 Patient discharge [facility] Start: 09-25-2023 Administration of medication [facility] Start: 09-25-2023 Application of ice collar, cap or bag [facility] Start: 09-25-2023 Catheterization of vein [facility] Start: 09-25-2023 Introduction of urinary catheter [facility] Start: 09-25-2023 Measuring intake and output [facility] Start: 09-25-2023 Notification of physician [facility] Start: 09-25-2023 Procedure discontinued [facility] Start: 09-25-2023 Provision of activity privileges [facility] Start: 09-25-2023 Vital signs measurements [facility] Start: 09-25-[address] [facility] Start: 09-24-[address] [facility] Start: 09-24-2023 Notification of physician [facility] Start: 09-24-[address] [facility] Start: 09-24-2023 Admission procedure [facility] Start: 2022 Patient discharge [facility] Work Phone: Start: 03-24-[address] [facility] Work Phone: Start: 2015 Screening for malignant neoplasm of cervix Cervical Cancer Screening [facility] Start: 2012 Anxiety Screening Anxiety Screening [facility] Start: 2012 Depression Screening Depression Screening [facility] Start: 2012 Hepatitis C screening Hepatitis C Screening [facility] Start: 2012 HIV screening HIV Screening [facility] Bacteria identified in Urine by Culture Urine Culture [facility] Work Phone: CBC W Auto Different ial panel - Blood [facility] CBC W Auto Different ial panel - Blood [facility] COVID & INFLUENZA A/ B & RSV PCR, ROUTINE COVID & INFLUENZA A/B & RSV PCR, ROUTINE Microbiology Routine Nausea and vomiting, unspecified vomiting type 11/18/2024 9:29 AM EDT [facility] Work Phone: Erythrocyte mean corpuscular volume determination [facility] Erythrocyte mean corpuscular volume determination [facility] Hematocrit [Volume Fraction] of Blood [facility] Hematocrit [Volume Fraction] of Blood [facility] Hemoglobin [Mass/vol ume] in Blood [facility] Hemoglobin [Mass/vol ume] in Blood [facility] Hepatitis B surface antigen measurement [facility] Hepatitis C antibody measurement [facility] HIV 1+2 Ab+HIV1 p24 Ag [Presence] in Serum or Plasma by Immunoassay [facility] Leukocytes [#/volume ] in Blood [facility] Leukocytes [#/volume ] in Blood [facility] Mean corpuscular hemoglobin concentration determination [facility] Mean corpuscular hemoglobin concentration determination [facility] Mean corpuscular hemoglobin determination [facility] Mean corpuscular hemoglobin determination [facility] Neutrophil count [facility] Neutrophil count [facility] Neutrophil percent differential count [facility] Neutrophil percent differential count [facility] Patient Education Abdominal Pain [facility] Work Phone: Patient referral [facility] Work Phone: Platelets [#/volume] in Blood [facility] Platelets [#/volume] in Blood [facility] Red blood cell count [facility] Red blood cell count [facility] Red cell distributio n width determination [facility] Red cell distributio n width determination [facility] Rubella IgG measurement [facility] Streptococcus agalac tiae [Presence] in Unspecified specimen by Organism specific culture [facility] Treponema sp Ab [Pre sence] in Serum [facility] Urine culture [facility] Work Phone: [facility] [place]izations Immunization Date Immunization Notes [facility] tetanus toxoid, redu solis diphtheria toxoid, and acellular pertussis vaccine, adsorbed Dr. Allyssa Velarde DO Work Phone: [facility] 07-11-2024 influenza, seasonal, injectable, preservative free Dr. Allyssa Velarde DO Work Phone: [facility] 08-26-2023 tetanus toxoid, redu solis diphtheria toxoid, and acellular pertussis vaccine, adsorbed Dr. Allyssa Velarde Work Phone: [facility] 07-23-2023 influenza, injectabl e, quadrivalent, preservative free Dr. Allyssa Velarde Work Phone: [facility] 06-09-2022 influenza, injectabl e, quadrivalent, preservative free Dr. Allyssa Velarde Work Phone: [facility] 06-09-2022 influenza, seasonal, injectable Dr. Allyssa Velarde Work Phone: [facility] 07-02-2021 Covid (Moderna) Dr. Allyssa aguilar Work Phone: [facility] 06-12-2021 influenza, injectabl e, quadrivalent, preservative free Dr. Allyssa Velarde Work Phone: [facility] 06-12-2021 influenza, seasonal, injectable Dr. Allyssa Velarde Work Phone: [facility] 10-23-2020 Covid (Moderna) Dr. Alylssa aguilar Work Phone: [facility] 09-25-2020 Covid (Moderna) Dr. Allyssa aguilar Work Phone: [facility] 06-13-2020 influenza, injectabl e, quadrivalent, preservative free Dr. Allyssa Velarde Work Phone: [facility] 06-13-2020 influenza, seasonal, injectable Dr. Allyssa Velarde Work Phone: [facility] 07-11-2019 influenza, injectabl e, quadrivalent, preservative free Dr. Allyssa Velarde Work Phone: [facility] 07-11-2019 influenza, seasonal, injectable Dr. Allyssa Velarde Work Phone: [facility] 07-07-2018 influenza, injectabl e, quadrivalent, preservative free Dr. Allyssa Velarde Work Phone: [facility] 07-07-2018 influenza, seasonal, injectable Dr. Allyssa Velarde Work Phone: [facility] 06-04-2017 influenza, injectabl e, quadrivalent, preservative free Dr. Allyssa Velarde Work Phone: [facility] 06-04-2017 influenza, seasonal, injectable Dr. Allyssa Velarde Work Phone: [facility] 06-16-2016 influenza, injectabl e, quadrivalent, preservative free Dr. Allyssa Velarde Work Phone: [facility] 06-16-2016 influenza, seasonal, injectable Dr. Allyssa Velarde Work Phone: [facility] 03-05-[address] Allyssa Velarde Work Phone: [facility] Payers Date Payer Category Payer Unknown [id number] 2024 Self-pay [id number] 2023 Blue [employer] Blue Shield BLUE ACCE PPO [id number] 2023 Unknown [id number] 1994 Unknown [id number] [id number]. 479 1994 Unknown [id number] 2.16.840.1.637327.3.579.2. 479 Private Health Insurance [id number] Unknown [id number] Unknown [facility] [id number] Unknown ANTHEM [id number] Unknown [id number] 2.16.840.1.970467.3.579.2. 462 Unknown [id number] 2.16.840.1.880983.3.579.2. 462 Unknown [id number] 2.16.840.1.976558.3.579.2. 462 Unknown [id number] 2.16.840.1.800653.3.579.2. 462 Unknown [id number] 2.16840.1.590553.3.579.2. 462 Unknown [id number] 2..840.1.356336.3.579.2. 462 Unknown [id number] 2.16.840.1.229024.3.579.2. 462 Unknown [id number] 2.840.1.358920.3.579.2. 462 Unknown [id number] 2.840.1.916532.3.579.2. 462 Unknown [id number] 2.840.1.403398.3.579.2. 462 Unknown [id number] 2..840.1.459049.3.579.2. 462 Unknown [id number] 2.16.840.1.892960.3.579.2. 462 Unknown [id number] 2.16840.1.924728.3.579.2. 462 Unknown [id number] 2.16.840.1.345602.3.579.2. 462 Unknown [id number] 2.16.840.1.668311.3.579.2. 462 Unknown [id number] 2.16.840.1.081409.3.579.2. 462 Unknown [id number] 2.16.840.1.452758.3.579.2. 462 Unknown [id number] 2.16.840.1.550175.3.579.2. 462 Unknown [id number] 2.16.840.1.734573.3.579.2. 462 Unknown [id number] 2.16.840.1.137071.3.579.2. 462 Unknown [id number] 2.16.840.1.227231.3.579.2. 462 Unknown [id number] 2.16.840.1.861212.3.579.2. 462 Unknown [id number] 2.16.840.1.395506.3.579.2. 462 Social History Date Type Detail Facility Start: 03-05-2022 End: 09-24-2023 Tobacco smoking status NYIS Unknown if ever smoked [facility] Start: 1995 Sex Assigned At Female [facility] Start: 11-18-2024 End: 11-18-2024 Tobacco smoking status NHIS Never smoked tobacco [facility] Start: 11-18-2024 Tobacco use and exposure Smokeless tobacco non-user [facility] Start: 11-18-2024 Alcoholic beverage intake Ex-drinker (finding) [facility] Start: 11-18-2024 History of Social function [facility] Start: 11-18-2024 Tobacco use panel [facility] Adult Depression Screening Assessment 0 [facility] Start: 1995 Sex assigned at Not on file [facility] Start: 11-19-2024 Sex Female (finding) [facility] Goals Date Patient Goal Desired Activity /State Functional Status Date Assessment Result Facility 2022 Functional status Ambulates [facility] Work Phone: Mental Status Date Assessment Result Facility 11-18-2024 Cognitive function Level Of Cons ciousness Awake;Alert;Appropriate;Follow s Commands [facility] Work Phone: 2022 Cognitive function Voice/Name [facility] Work Phone: Clinical Notes 02-19-2023 to 04-17-2025 Note Date & Type Note Facility 04-17-2025 Progress note [facility] 04-03-2025 Progress note [facility] 03-30-2025 Progress note [facility] 03-30-2025 Progress note Note Date/Time March 30, 2025 3:11pm [facility] [address] [place] [address], [address] [place] [address] OFFICE VISIT Date of Service: 03/30/25 MR#: [id number] Acct: [id number] Name: EDEL GALLOWAY Rep #: [id number] : 1995 Provider: BRAYAN Daniel Age/Sex: 29/F Location: [facility] Status: Signed Intake Vital Signs 03/26/25 08:56 [...] Reasons: 36wk ob Chief Complaint: 36wk ob 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 Date Name GA/Weeks Outcome Route Bth Weight Gen Labor Lgth Anesthesia Del [facility] Provider FOB 11/20/22 miscarriage @5-6 wks 09/24/23 Delainey 40 live - full term 7#9oz Female ep idural [facility] Dr. Adrianna Acosta Delivery Date: 09/24/23 [...] NIPT. [place] to do anatomy scan [place] 11/02/24 -?-?-?-?-?-?-?-?-?-?-?-?- 15w 2d 160 lb 2 oz 122/85 Nega tive -?-?-?-?-?-?-?-?-?-?-?-?- Negative 150 -?-?-?-?-?-?-?-?-?-?-?--?- SM- no vb crampi ng 12/02/24 -?-?-?-?-?-?-?-?-?-?-?-?- 19w 4d 160 lb 2 oz 118/70 Nega tive -?-?-?-?-?-?-?-?-?-?-?-?- Negative 146 -?-?-?-?-?-?-?-?-?-?-?-?- MH-No VB. Luis cano. Repeat MFM US 12/26. 12/28/24 -?-?-?-?-?-?-?-?-?-?-?-?- 23w 2d 159 lb 2 oz 110/74 Nega tive -?-?-?-?-?-?-?-?-?-?-?-?- Negative 143 23 -?-?-?-?-?-?-?-?-?-?-?-?- [facility] UA neg for infection. 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 Farrah Manning, DO; Dr. 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 Adrianna Acosta Delivery Date: 09/24/23 [...] [facility] 11/02/24 -?-?-?-?-?-?-?-?-?-?-?-?- 15w 2d 160 lb 2 [...] Immediate Larc, Signs and Symptoms of Preeclampsia, [place] Education, Family Medical Leave or Disability Forms [...] Velde DO> Date _ Farrah Manning DO [facility] Signature: Date (if applicable) CC: ~ [facility]06-20-2025 [facility] [address] [place] [address], [address] [place] [address] OFFICE VISIT Date of Service: 02/24/25 MR#: [id number] Acct: [id number] Name: EDEL GALLOWAY Rep #: [id number] : 1995 Provider: Dr. 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 Adrianna Acosta Delivery Date: 09/24/23 [...] NIPT. [place] to do anatomy scan [place] 11/02/24 -?-?-?-?-?-?-?-?-?-?-?-?- 15w 2d 160 lb 2 [...] florence HIGUERA> Date _ Crissy Rodas MD [facility] Signature: Date (if applicable) CC: ~ [facility] [id number] [facility] [address] [place] [address], [address] [place] [address] OFFICE VISIT Date of Service: 02/06/25 MR#: [id number] Acct: [id number] Name: EDEL GALLOWAY CHUY Rep #: [id number] : 1995 Provider: BRAYAN Daniel Age/Sex: 29/F Location: [facility] Status: Signed Intake Vital Signs 12/28/24 14:53 01/23/25 10:17 02/06/25 11:11 Height 5 ft 4 in 5 ft 4 in 5 ft 4 in Weight: 162 lb 4 oz BMI 27.8 BP 112/75 Intake Visit Reasons: 29 wk ob Chief Complaint: 29wk OB 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 Adrianna Acosta Delivery Date: 09/24/23 [...] Negative 143 23 -?-?-?-?-?-?-?-?-?-?-?-?- [facility] UA neg for infection. Has not [...] Immediate Larc, Signs and Symptoms of Preeclampsia, [place] Education, Family Medical Leave or Disability Forms [...] Performing Provider: Corina Daniel CNM Performing Location: [facility] Administered by: Annita Espinosa on 02/06/25 11:20 Dose Route Admin Location Dispensed Lot Number Expiration Date NDC Bacteriologist Food 0.5 mL IM Left Deltoid 0.5 mL [id number] 02/03/26 63584-142-96 [employer]OF [employer] VIS Given Date VIS Provided [...] Navarrete Signature: Date (if applicable) CC: ~ [facility]05-19-2025 [facility] [address] [place] [address], [address] [place] [address] OFFICE VISIT Date of Service: 01/23/25 MR#: [id number] Acct: [id number] Name: EDEL GALLOWAY Rep #: [id number] : 1995 Provider: BRAYAN Daniel Age/Sex: 29/F Location: [facility] Status: Signed Intake Vital Signs 12/02/24 09:59 12/28/24 14:53 01/23/25 10:17 Height 5 ft 4 in 5 ft 4 in 5 ft 4 in Weight: 161 lb 8 oz BMI 27.7 BP 107/75 Intake Visit Reasons: 27wk ob/glucose Chief Complaint: 27wk OB 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 Adrianna Acosta Delivery Date: 09/24/23 [...] N[facility]. [facility] 11/02/24 -?-?-?-?-?-?-?-?-?-?-?-?- 15w 2d 160 lb 2 [...] Immediate Larc, Signs and Symptoms of Preeclampsia, [place] Education, Family Medical Leave or Disability Forms [...] Cosigner Signature: Date (if applicable) CC: ~ [facility]04-23-2025 Evaluation note* Diagnosis Onset Date Resolution Status [...] somatic dysfunction of cervical region acute [facility] 2024 11:05am Segmental and somatic dysfunction of lumbar region acute [facility] 2024 11:05am Segmental and somatic dysfunction of sacral region acute [facility] 2024 11:05am Segmental and somatic dysfunction of thoracic region acute [facility] 2024 11:05am Supervision of high-risk acute February [...] 2025 10:17am UTI in acute March 10:17am [facility] Work Phone: 1(107) 524-884504-23-2025 Evaluation note* Diagnosis Onset Date Resolution Status [...] and somatic dysfunction of cervical region acute [facility] 2024 9:58am Segmental and somatic dysfunction of lumbar region acute January 23, 2025 9:58am Segmental and somatic dysfunction of sacral region acute January 23, 2025 9:58am Segmental and somatic dysfunction of thoracic region acute [facility] 2024 9:58am Supervision of high-risk acute January 23, 2025 9 :58am UTI in acute January 9:58am Abnormal ultrasound acute February 06, 2025 11:09am Anemia affecting acute February 06, 2025 11:09am History of miscarriage, currently acute February 06 11:09am Neck pain acute February 06, 2025 11:09am acute February 06, 2025 11:09am Segmental and somatic dysfunction of cervical region acute [facility] 2024 11:09am Segmental and somatic dysfunction of lumbar region acute Feb 11:09am Segmental and somatic dysfunction of sacral region acute [facility] 2024 11:09am Segmental and somatic dysfunction of thoracic region acute [facility] 2024 11:09am Supervision of high-risk acute February [...] [facility] Work Phone: 1(166) 367-452404-23-2025 Evaluation note* Diagnosis Onset Date Resolution Status [...] [facility] Work Phone: 1(921) 325-446703-28-2025 Evaluation note* Diagnosis Onset Date Resolution Status [...] 1 0:02am UTI in acute March 10:02am [facility] Work Phone: 1(841) 150-577603-28-2025 Evaluation note* Diagnosis Onset Date Resolution Status [...] and somatic dysfunction of cervical region acute [facility] 2024 9:58am Segmental and somatic dysfunction of lumbar region acute January 23, 2025 9:58am Segmental and somatic dysfunction of sacral region acute January 23, 2025 9:58am Segmental and somatic dysfunction of thoracic region acute [facility] 2024 9:58am Supervision of high-risk acute January 23, 2025 9 :58am UTI in acute January 9:58am Abnormal ultrasound acute February 06, 2025 11:09am Anemia affecting acute February 06, 2025 11:09am History of miscarriage, currently acute February 06 11:09am Neck pain acute February 06, 2025 11:09am acute February 06, 2025 11:09am Segmental and somatic dysfunction of cervical region acute [facility] 2024 11:09am Segmental and somatic dysfunction of lumbar region acute Feb 11:09am Segmental and somatic dysfunction of sacral region acute [facility] 2024 11:09am Segmental and somatic dysfunction of thoracic region acute [facility] 2024 11:09am Supervision of high-risk acute February [...] 2025 9:33am UTI in acute March 9:33am [facility] Work Phone: 1(389) 867-124003-28-2025 Evaluation note* Diagnosis Onset Date Resolution Status [...] somatic dysfunction of cervical region acute [facility] 2024 11:09am Segmental and somatic dysfunction of [...] somatic dysfunction of cervical region acute [facility] 2024 11:05am Segmental and somatic dysfunction of lumbar region acute [facility] 2024 11:05am Segmental and somatic dysfunction of sacral region acute [facility] 2024 11:05am Segmental and somatic dysfunction of thoracic region acute [facility] 2024 11:05am Supervision of high-risk acute February [...] [facility] Work Phone: 1(938) 375-226903-28-2025 Evaluation note* Diagnosis Onset Date Resolution Status [...] and somatic dysfunction of cervical region acute [facility] 2024 9:58am Segmental and somatic dysfunction of lumbar region acute January 23, 2025 9:58am Segmental and somatic dysfunction of sacral region acute January 23, 2025 9:58am Segmental and somatic dysfunction of thoracic region acute [facility] 2024 9:58am Supervision of high-risk acute January [...] [facility] Work Phone: 1([phone]) 145-5155101269-89-1918 Miscellaneous Notes* Telephone Encounter - Seda Reyes [...] AM EDT ----- Message from Wenceslao Short APRN.TRANSLATIONAL SPECIALIST sent at 11/19/2024 9:03 AM EDT ----- Patient is positive for influenza A. She was prescribed Tamiflu by her clinical dietician. She could use [id number] medications that are appropriate during for her other symptoms. Please inform her of the positive test she is negative for COVID, influenza B and RSV. [facility] Note * Telephone Encounter - Seda Reyes LPN - 11/19/2024 11:15 AM EDT Explained results to patient. Explained to use medications as prescribed and OTC that is approved by her gyno. If patient isn't getting better she would need to follow up with her primary or gyno. Patient stated understanding and voices no other concerns at this time. Seda Reyes LPN [facility]03-15-2025 Telephone encounter Note* Telephone Encounter - Seda Reyes LPN - 11/19/2024 11:13 AM EDT ----- Message from Wenceslao Short APRN.CNP sent at 11/19/2024 9:03 AM EDT ----- Patient is positive for influenza A. She was prescribed Tamiflu by her clinical dietician. She could use ezef-nmi-qmzftbv medications that are appropriate during for her other symptoms. Please inform her of the positive test she is negative for COVID, influenza B and RSV. [facility]03-15-2025 Telephone encounter Note* Telephone Encounter - Wenceslao Short Jr., APRN.CNP - 11/19/2024 9:03 AM EDT Patient is positive for influenza A. She was prescribed Tamiflu by her clinical dietician. She could use iqir-ygd-aetkxbv medications that are appropriate during for her other symptoms. Please inform her of the positive test she is negative for COVID, influenza B and RSV. [facility]03-15-2025 Miscellaneous Notes* Telephone Encounter - Wenceslao Short Jr., APRN.CNP - 11/19/2024 9:03 AM EDT Patient is positive for influenza A. She was prescribed Tamiflu by her clinical dietician. She could use mmxb-dlk-oayjxpx medications that are appropriate during for her other symptoms. Please inform her of the positive test she is negative for COVID, influenza B and RSV. [facility] Discharge summary [facility] Medical Records Department [address] [place] [address] Emergency Department Summary 11/18/24 MR#: [id number] Acct: [id number] Name: EDEL GALLOWAY Rep #:[id number] : 1995 29 From: Alfonso Sylvester DO [...] that she was prescribed Zofran by her OPERATIONS ACCOUNTANT and states that she has been taking [...] bleeding. States that her first was uncomplicated. 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 Cloudy Urine pH 6.0 Ur Specific [place] 1.020 Urine Protein 15 H Urine Glucose [...] culture with your family physician or your OPERATIONS ACCOUNTANT. Do not take Zofran and Reglan together as these are both antiemetics. Ensure adequate hydration. Continue Tamiflu. Return with worsening symptoms or concerns. He tested positive for influenza A. Print Language: Liberian Disposition Disposition: Home, Self Care What to do if you have Problems For any increased pain, shortness of breath, bleeding, nausea or vomiting, chestpain, or any unexpected problems, contact your Primary Care Provider. Call [facility] ([phone]) or report tothe closest Emergency Room. Call 911 if necessary. 11/18/24 2345 Cosigner Signature (if applicable): CC: Dr. Allyssa Velarde DO ~ Signed [facility]03-14-2025 Discharge summary Author Alfonso Sylvester 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 Cloudy Urine pH 6.0 Ur Specific [place] 1.020 Urine Protein 15 H Urine Glucose [...] culture with your family physician or your OPERATIONS ACCOUNTANT. Do not take Zofran and Reglan together as these are both antiemetics. Ensure adequate hydration. Continue Tamiflu. Return with worsening symptoms or concerns. He tested positive for influenza A. Print Language: Liberian Disposition Disposition: Home, Self Care What to do if you have Problems For any increased pain, shortness of breath, bleeding, nausea or vomiting, chestpain, or any unexpected problems, contact your Primary Care Provider. Call [facility] ([phone]) or report to the closest Emergency Room. Call 911 if necessary. 11/18/24 2341 <Electronically signed by Alfonso Sylvester DO> Cosigner Signature (if applicable): CC: Dr. Allyssa Velarde DO ~ Signed [facility] Work Phone: 1(859) 903-964603-14-2025 [id number] (AGENT OF COVID-19) RNA: Not detected INFLUENZA A RNA: Detected INFLUENZA B RNA: Not detected RESPIRATORY SYNCYTIAL VIRUS (RSV) RNA: Not detectedSamaritan Pacific Communities HospitalComment on above:Performed By: #### [id number] #### [facility] CLIA [id number] [address] [place] [address] [place] [id number] Instructions* Patient Instructions* Wenceslao Short Jr., APRN.CNP - 11/18/2024 8:56 AM EDT Take medications as prescribed. Follow-up with PCP or return if symptoms do not resolve visit Urgent Care. documented in [facility] NoteHNO ID: [id number] Author: WENCESLAO SHORT JR, APRN.DEMETRIUS Service: ? Author Type: Nurse Practitioner Type: Progress Notes Filed: 11/18/2024 09:13 Note Text: [facility] SHAQ Galloway is a 29 [...] She has been prescribed Zofran by her OPERATIONS ACCOUNTANT but only has 1 tablet left. Patient states she has been exposed to influenza A from a family member. She is currently taking Tamiflu prescribed by her OPERATIONS ACCOUNTANT. The history is provided by the patient. [...] and even though she has contacted her OPERATIONS ACCOUNTANT for refill no prescription has been sent [...] after 4 days add a tab mid-day [facility]03-14-2025 History of Present illness Narrative* Wenceslao Short Jr., EGG GRADER.TRANSLATIONAL SPECIALIST - 11/18/2024 8:42 AM EDT [facility] SHAQ Galloway is a 29 [...] She has been prescribed Zofran by her OPERATIONS ACCOUNTANT but only has 1 tablet left. Patient states she has been exposed to influenza A from a family member. She is currently taking Tamiflu prescribed by her OPERATIONS ACCOUNTANT. The history is provided by the patient. [...] and even though she has contacted her OPERATIONS ACCOUNTANT for refill no prescriptionhas been sent in. [...] tab mid-day MDM Procedures documented in [facility]High[facility] Evaluation note* Diagnosis Onset Date Resolution Status Admit Date History of miscarriage, currently acute October 2:09pm Neck pain acute November 02, 2024 2:09pm acute November 02, 2024 2:09pm Segmental and somatic dysfunction of cervical region acute F [facility] 2024 2:09pm Segmental and somatic dysfunction of lumbar region acute Oct [facility] 2024 2:09pm Segmental and somatic dysfunction of sacral region acute Oct [facility] 2024 2:09pm Segmental and somatic dysfunction of thoracic region acute F [facility] 2024 2:09pm Supervision of high-risk acute [...] and somatic dysfunction of cervical region acute [facility] 2024 9:58am Segmental and somatic dysfunction of lumbar region acute January 23, 2025 9:58am Segmental and somatic dysfunction of sacral region acute January 23, 2025 9:58am Segmental and somatic dysfunction of thoracic region acute [facility] 2024 9:58am Supervision of high-risk acute January [...] [facility] Work Phone: 1(958) 971-522602-26-2025 Evaluation note* Diagnosis Onset Date Resolution Status [...] and somatic dysfunction of cervical region acute [facility] 2024 9:58am Segmental and somatic dysfunction of lumbar region acute January 23, 2025 9:58am Segmental and somatic dysfunction of sacral region acute January 23, 2025 9:58am Segmental and somatic dysfunction of thoracic region acute [facility] 2024 9:58am Supervision of high-risk acute January [...] 2025 11:05am UTI in acute February 11:05am [facility] Work Phone: 1([phone]) 621-684101-29-2025 Evaluation note* Diagnosis Onset Date Resolution Status [...] acute November 02, 2:09pm [facility] Work Phone: 1(471) 897-568101-29-2025 Evaluation note* Diagnosis Onset Date Resolution Status [...] 9 :58am UTI in acute January 9:58am [facility] Work Phone: 1(510) 971-392601-20-2024 Progress note Author Crissy Rodas [facility] September 26, 2023 7:18am Note Date/Time September 25, 2023 8 :34am [facility] Medical Records Department [address] [place] [address] Progress Note - OBGYN 09/25/23 0834 MR#: [id number] Acct: [id number] Name: EDEL GALLOWAY Rep #:[id number] : 1995 28 From: Crissy dennison MD PCP: Dr. Allyssa Velarde, DO Status: ADM IN Location: OK800-8 Subjective Subjective Patient doing well without complaints. [...] 81.2 H, Lymph % (Auto) 10.3 L, Dent % (Auto) 7.4, Eos % (Auto) 0.2, [...] rh positive 4. rubella immune Capacity Legal Paraoptometric Reflex Medical hold order details:: IF a medical hold is selected below, a suggested order for a MEDICAL HOLD will reflex upon signing the document. Next of kin: [place] law dictates a PRIORITY LIST for identifying [...] applicable): CC: ~ Signed [facility] Work Phone: 1(235) 499-675201-20-2024 Progress note Author Crissy Rodas [facility] September 26, 2023 7:18am Note Date/Time September 26, 2023 7 :18am [facility] Medical Records Department [address] [place] [address] Progress Note - OBGYN 09/26/2317 MR#: [id number] Acct: [id number] Name: EDEL GALLOWAY Rep #:[id number] : 1995 28 From: Crissy dennison MD PCP: Dr. Allyssa Velarde, DO Status: ADM IN Location: CC851-0 Subjective Subjective Patient doing well without complaints. [...] applicable): CC: ~ Signed [facility] Work Phone: 1(656) 256-812101-19-2024 Discharge summary Author Crissy Rodas [facility] September 24, 2023 11:54pm Note Date/Time September 24, 2023 1 0:11pm [facility] Medical Records Department [address] [place] [address] [place] [address] Instructions for Home/Discharge Instructions 09/24/232210 MR#: [id number] Acct: [id number] Name: EDEL GALLOWAY Rep #:[id number] : 1995 28 From: Crissy dennison MD [...] Up With: Crissy Rodas MD When: Call [phone] to make an appointment with your doctor in 6 weeks. If you had elevated blood pressure or 4th degree laceration, you will need to be seen in 2 weeks. Test Results: Test results from this visit will be discussed in further detail at your follow- up appointment, if applicable. Discharge Plan Admission Admit Date/Time: 09/24/23 11:30 Attending Provider: Crissy Rodas Primary Care Provider: Allysas Velarde Discharge Orders/Prescriptions Prescriptions: No Action DHA 200 mg capsule 1 mg PO Referrals / Follow Up: Allyssa Velarde DO [Primary Care Provider] - Disposition Disposition (needs filled in before D/C Order can be placed): Home, Self Care 09/24/23 8277<Electronically signed by Crissy Rodas MD>Crissy Rodas MD CC: Dr. Allyssa Velarde DO ~ Signed [facility] Work Phone: 1([phone]) 890-697901-18-2024 Procedure [facility] 09-24-2023 History and physical note Author Crissy Rodas [facility] September 24, 2023 2:09pm Note Date/Time September 24, 2023 2 :09pm [facility] [place] [address] H&P Exam - OPERATIONS ACCOUNTANT 09/24/23 1407 MR#: [id number] Acct: [id number] Name: EDEL GALLOWAY Rep #:[id number] : 1995 28 From: Crissy dennison MD PCP: Dr. 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 Date Name GA/Weeks Outcome Route Bth Weight Infant Gen Labor Lgth Anesthesia Del [facility] Provider FOB 11/20/22 miscarriage @5-6 wks Visit [...] any complications: none I have reviewed the [facility] and made any clinically relevant updates. 09/24/23 5669 <Electronically signed by Crissy Rodas MD> Cosigner Signature (if applicable): CC: Dr. Allyssa Velarde, DO; Dr. Crissy Rodas MD~ Signed [facility] Work Phone: 1(335) 163-811206-15-2023 NotePap Smear Specimen AdequacyJune 2022 11:59pmComment.Satisfactory for evaluation. No endocervical component is identified.[facility] INTER[facility]ACED A#[id number] St[facility] [place] on above:Satisfactory for evaluation. No endocervical component is identified. 02-19-2023 NotePap Smear Specimen AdequacyJune 2022 11:59pmComment. Satisfactory for evaluation. No endocervical component is identified.[facility] INTERFACED A#[id number] Health St. [facility] [place] on above:Satisfactory for evaluation. No endocervical component is identified.02-19-2023 NotePap Smear Specimen AdequacyJune 2022 11:59pmComment.Satisfactory for evaluation. No endocervical component is identified.[facility] INTER[facility]ACED A#[id number] Health St. [facility] [place] on above:Satisfactory for evaluation. No endocervical component [...] of thoracic region acute [facility] Work Phone: Evaluation note* Diagnosis Onset Date [...] region acute Cholelithiases acute [facility] Work Phone: Evaluation note* Diagnosis Onset Date [...] of thoracic region acute [facility] Work Phone: Evaluation note* Diagnosis Onset Date Resolution Status Hx of one miscarriage acute acute Supervision of high-risk acute Back pain acute Segmental and somatic dysfunction of cervical region acute Segmental and somatic dysfunction of lumbar region acute Segmental and somatic dysfunction of sacral region acute Segmental and somatic dysfunction of thoracic region acute [facility] Work Phone: Evaluation note* Diagnosis Onset Date [...] twin syndrome acut e [facility] Work Phone: Evaluation note* Diagnosis Onset Date [...] twin syndrome acut e [facility] Work Phone: Evaluation note* Diagnosis Onset Date [...] twin syndrome acut e [facility] Work Phone: Evaluation note* Diagnosis Onset Date [...] thoracic region acute Conjunctivitis, right eye ac [place] Abnormal glucose tolerance a ffecting , antepartum acute Back pain acute Cervicogenic headache acute Choroid plexus cyst of fetus acute Conjunctivitis, right eye ac [place] Hx of one miscarriage acute Need to [...] twin syndrome acut e [facility] Work Phone: Evaluation note* Diagnosis Onset Date [...] twin syndrome acut e [facility] Work Phone: Evaluation note* Diagnosis Onset Date [...] twin syndrome reso lved [facility] Work Phone: Evaluation note* Diagnosis Congestion of nasal sinus- Primary Other diseases of nasal cavity and sinuses Nausea and vomiting, unspecified vomiting type documented in this encounter [facility] Discharge instructions Additional Instructions I sent 2 prescriptions to your pharmacy take the antibiotic as prescribed. Follow-up and urine culture with your family physician or your OPERATIONS ACCOUNTANT. Do not take Zofran and Reglan together as these are both antiemetics. Ensure adequate hydration. Continue Tamiflu. Return with worsening symptoms or concerns. He tested positive for influenza A.[facility] Work Phone: Progress note Author Corina Daniel [facility] Note Date/Time January 23, 2025 10:33 am [facility] [address], [address] [place] [address] OFFICE VISIT Date of Service: 01/23/25 MR#: [id number] Acct: [id number] Name: EDEL GALLOWAY Rep #: [id number] : 1995 Provider: BRAYAN Daniel Age/Sex: 29/F Location: [facility] Status: Signed Intake Vital Signs 12/02/24 09:59 12/28/24 14:53 01/23/25 10:17 Height 5 ft 4 in 5 ft 4 in 5 ft 4 in Weight: 161 lb 8 oz BMI 27.7 BP 107/75 Intake Visit Reasons: 27wk ob/glucose Chief Complaint: 27wk OB 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 Adrianna Acosta Delivery Date: 09/24/23 [...] Negative 143 23 -?-?-?-?-?-?-?-?-?-?-?-?- -work in for [facility] freq. UA neg for infection. Has not [...] Cosigner Signature: Date (if applicable) CC: ~ [facility] Work Phone: Progress note Author Corina Daniel [facility] Note Date/Time February 06, 2025 11:33 am [facility] [address], [address] [place] [address] OFFICE VISIT Date of Service: 02/06/25 MR#: [id number] Acct: [id number] Name: EDEL GALLOWAY Rep #: [id number] : 1995 Provider: BRAYAN Daniel Age/Sex: 29/F Location: [facility] Status: Signed Intake Vital Signs 12/28/24 14:53 01/23/25 10:17 02/06/25 11:11 Height 5 ft 4 in 5 ft 4 in 5 ft 4 in Weight: 162 lb 4 oz BMI 27.8 BP 112/75 Intake Visit Reasons: 29 wk ob Chief Complaint: 29wk OB 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 Adrianna Acosta Delivery Date: 09/24/23 [...] NIPT. wants to do anatomy scan in [place]. 11/02/24 -?-?-?-?-?-?-?-?-?-?-?-?- 15w 2d 160 lb 2 oz 122/85 Nega tive -?-?-?-?-?-?-?-?-?-?-?--?- Negative 150 -?-?-?-?-?-?-?-?-?-?-?-?- SM- no vb crampi ng 12/02/24 -?-?-?-?-?-?-?-?-?-?-?-?- 19w 4d 160 lb 2 oz 118/70 Nega tive -?-?-?-?-?-?-?-?-?-?-?-?- Negative 146 -?-?-?-?-?-?-?-?-?-?-?-?- MH-No VB. Luis cano. Repeat MFM US 12/26. 12/28/24 -?-?-?-?-?-?--?-?-?-?-?-?- 23w 2d 159 lb 2 oz 110/74 Nega tive -?-?-?-?-?-?-?-?-?-?-?-?- Negative 143 23 -?-?-?-?-?-?-?-?-?-?-?-?- [facility]. Has not been [...] Performing Provider: Corina Daniel CNM Performing Location: [facility] Administered by: Annita Espinosa on 02/06/25 11:20 Dose Route Admin Location Dispensed Lot Number Expiration Date NDC Bacteriologist Food 0.5 mL IM Left Deltoid 0.5 mL [id number] 02/03/26 91549-358-64 SANOF [employer]-PASTEUR VIS Given Date VIS Provided [...] Cosigner Signature: Date (if applicable) CC: ~ [facility] Work Phone: Progrpwf note Author Crissy Rodas [facility] Note Date/Time February 24, 2025 11:4 5am [facility] [address] [place] [address], [address] [place] [address] OFFICE VISIT Date of Service: 02/24/25 MR#: [id number] Acct: [id number] Name: EDEL GALLOWAY CHUY Rep #: [id number] : 1995 Provider: Dr. 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 Adrianna Acosta Delivery Date: 09/24/23 [...] NIPT. wants to do anatomy scan in [place]. 11/02/24 -?-?-?-?-?-?-?-?-?-?-?-?- 15w 2d 160 lb 2 [...] inflammation Barriers Poor posture at work/baby 02/24/25 1735 <Electronically signed by Crissy henriquez MD> Date _ Crissy Rodas MD Cosigner Signature: Date (if applicable) CC: ~ [facility] Work Phone: Progress note Author Farrah Restrepo [facility] Note Date/Time March 08, 2025 10:41 am [facility] [address], [address] [place] [address] OFFICE VISIT Date of Service: 03/08/25 MR#: [id number] Acct: [id number] Name: EDEL GALLOWAY Rep #: [id number] : 1995 Provider: Dr. 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 Adrianna Acosta Delivery Date: 09/24/23 [...] NIPT. wants to do anatomy scan [place]. 11/02/24 -?-?-?-?-?-?-?-?-?-?-?-?- 15w 2d 160 lb 2 [...] Cosigner Signature: Date (if applicable) CC: ~ [facility] Work Phone: Progress note Author Corina Daniel [facility] Note Date/Time April 03, 2025 10:[facility] [address], [place] [address] OFFICE VISIT Date of Service: 04/03/25 MR#: [id number] Acct: [id number] Name: EDEL GALLOWAY CHUY Rep #: [id number] : 1995 Provider: BRAYAN Daniel Age/Sex: 30/F Location: [facility] Status: Signed Intake Vital Signs 02/06/25 11:11 03/30/25 14:46 04/03/25 10:21 Height 5 ft 4 in 5 ft 4 in 5 ft 4 in Weight: 165 lb 2 oz BMI 28.3 BP 116/74 Intake Visit Reasons: 37wk ob Chief Complaint: 37wk ob 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 Adrianna Acosta Delivery Date: 09/24/23 [...] NIPT. wants to do anatomy scan in [place] 11/02/24 -?-?-?-?-?-?-?-?-?-?-?-?- 15w 2d 160 lb 2 [...] Immediate [place], Signs and Symptoms of Preeclampsia, [place] Education, Family Medical Leave or Disability Forms [...] Note Date/Time April 17, 2025 10 :10am [facility] [facility] [address], [address] [place] [address] OFFICE VISIT Date of Service: 04/17/25 MR#: [id number] Acct: [id number] Name: EDEL GALLOWAY Rep #: [id number] : [id number] Provider: Dr. 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 Adrianna Acosta Delivery Date: 09/24/23 [...] Immediate Larc, Signs and Symptoms of Preeclampsia, [place] Education, Family Medical Leave or Disability Forms [...] for referral (narrative)No reason for referral information availableWParkwood Hospital Work Phone: Summary Purpose Family History No Family History Records Found Relationship Condition Age at Onset Recorded Date/T rick mother Diabetes mellitus Unknown Hypertension Unknown grandmother Cardiac disease Unknown Advance Directives No Advanced Directives Records Found Advance Directive Response Recorded Date/ Time Living Will No March 24, 2022 4:55am Power of Blow Mold Technician No March 24 4:55am Advance Directive Response Recorded Date/ Time Living Will No March 31, 2022 8:15am Power of Blow Mold Technician No March 31 8:15am Advance Directive Response Recorded Date/ Time Living Will No March 16, 2023 3:58pm Power of Blow Mold Technician No March 16 3:58pm Advance Directive Response Recorded Date/ Time Living Will No April 13, 2023 2:15pm Power of Blow Mold Technician No April 13 2:15pm Advance Directive Response Recorded Date/ Time Living Will No April 13, 2023 1:15pm Power of Blow Mold Technician No April 13 1:15pm Advance Directive Response Recorded Date/ Time Living Will No September 24 12:10pm Power of Blow Mold Technician No September 24, 2023 12:10pm Advance Directive Response Recorded Date/ Time Living Will No November 18, 2024 8:33pm Power of Blow Mold Technician No November 18 8:33pm Advance Directive Response Recorded Date/ Time Living Will No November 18, 2024 8:33pm Do you have a Healthcare Power of Blow Mold Technician? No November 18, 2024 8:33pm Chief Complaint [...] section and content) DATE CREATED AUTHOR 07/27/2018 [facility] DATE CREATED AUTHOR AUTHOR'S ORGANIZ ATION 05/02/2020 [facility] ([place]) DATE CREATED AUTHOR AUTHOR'S ORGANIZ ATION 11/21/2024 [facility] DATE CREATED AUTHOR AUTHOR'S ORGANIZ ATION 12/26/2024 [facility] DATE CREATED AUTHOR AUTHOR'S ORGANIZ ATION 04/21/2025 [facility] Care Teams (unrecognized sec [...] Provider, Refe rring Provider Active Ida Ye ASTROPHYSICS PROFESSOR, ASTROPHYSICS PROFESSOR-C Attending Provider Active Team Status: Inactive Member Role Status Dates Dr. Allyssa Velarde , DO Primary Care Provider Activ e Ida Ye ASTROPHYSICS PROFESSOR, ASTROPHYSICS PROFESSOR-C Attending Provider, Referring Provider Active Team Status: [...] Provid er, Attending Provider, Referring Provider Active Wildlife Refuge Manager Relationship Specialty Start Date End Date Allyssa Velarde DO [address] [place] [id number] PCP - General Family Medicine 11/18/24 Wildlife Refuge Manager Relationship Specialty Start Date End Date Allyssa Velarde DO [address] [place] [id number] PCP - General Family Medicine 11/18/24 Wildlife Refuge Manager Relationship Specialty Start Date End Date Allyssa Velarde DO [address] [place] [id number] PCP - General Family Medicine 11/18/24 Team [...] 2024 End: December 02, 2024 Ida Ye ASTROPHYSICS PROFESSOR, ASTROPHYSICS PROFESSOR-C Attending Provider Active Start: December 02, 2024 End: December 02, 2024 Team Status: Inactive Member Role Status Dates Dr. Allyssa Velarde , DO Primary Care Provider Activ e Start: December 28, 2024 End: December 28, 2024 Dr. Allyssa Velarde , DO Referring Provider Active Start: December 28, 2024 End: December 28, 2024 Ida Ye ASTROPHYSICS PROFESSOR, ASTROPHYSICS PROFESSOR-C Attending Provider Active Start: December 28, 2024 [...] End: December 02, 2024 Ida Ye NP, ASTROPHYSICS PROFESSOR-C Attending Provider Active Start: December 02, 2024 End: December 02, 2024 Team Status: Inactive Member Role/Relationship Status Dates Dr. Allyssa Velarde , DO Primary Care Provider Activ e Start: December 28, 2024 End: December 28, 2024 Dr. Allyssa Velarde , DO Referring Provider Active Start: December 28, 2024 End: December 28, 2024 Ida Ye NP, ASTROPHYSICS PROFESSOR-C Attending Provider Active Start: December 28, 2024 [...] December 02, 2024 End: December 02, 2024 Iad Ye ASTROPHYSICS PROFESSOR, ASTROPHYSICS PROFESSOR-C Attending Provider Active Start: December 02, 2024 End: December 02, 2024 Team Status: Inactive Member Role/Relationship Status Dates Dr. Allyssa Velarde , DO Primary Care Provider Activ e Start: December 28, 2024 End: December 28, 2024 Dr. Allyssa Velarde , DO Referring Provider Active Start: December 28, 2024 End: December 28, 2024 Ida Ye ASTROPHYSICS PROFESSOR, ASTROPHYSICS PROFESSOR-C Attending Provider Active Start: December 28, 2024 [...] Status: Inactive Member Role/Relationship Status Dates Dr. Alylssa Velarde DO Primary Care Provider Activ e [...] 2025 End: March 20, 2025 Ida Ye ASTROPHYSICS PROFESSOR, ASTROPHYSICS PROFESSOR-C Attending Provider Active Start: March 20, 2025 End: March 20, 2025 Team Status: Active Member Role/Relationship Status Dates Dr. Allyssa Velarde DO Primary Care Provider Activ e Start: March 20, 2025 Ida Ye ASTROPHYSICS PROFESSOR, ASTROPHYSICS PROFESSOR-C Attending Provider Active Start: March 20, 2025 Ida Ye ASTROPHYSICS PROFESSOR, ASTROPHYSICS PROFESSOR-C Referring Provider Active Start: March 20, 2025 Team Status: Inactive Member Role/Relationship Status Dates Dr. Allyssa Velarde , Primary Care Provider Activ e Start: March 20, 2025 End: March 20, 2025 Ida Ye ASTROPHYSICS PROFESSOR, ASTROPHYSICS PROFESSOR-C Attending Provider Active Start: March 20, 2025 End: March 20, 2025 Ida Ye ASTROPHYSICS PROFESSOR, ASTROPHYSICS PROFESSOR-C Referring Provider Active Start: March 20, 2025 End: March 20, 2025 Team Status: Inactive Member Role/Relationship Status Dates Dr. Allyssa Velarde , Primary Care Provider Activ e Start: March 26, 2025 End: March 26, 2025 Dr. Allyssa Velarde DO Referring Provider Active Start: March 26, 2025 End: March 26, 2025 [facility] Self Schedule Attending Provider Active Start: [...] 2024 End: December 28, 2024 Ida Ye ASTROPHYSICS PROFESSOR, ASTROPHYSICS PROFESSOR-C Attending Provider Active Start: December 28, 2024 [...] 2025 End: January 23, 2025 Dr. Allyssa Vealrde , Referring Provider Active Start: January 23, [...] 2025 End: March 20, 2025 Ida Ye ASTROPHYSICS PROFESSOR, ASTROPHYSICS PROFESSOR-C Attending Provider Active Start: March 20, 2025 End: March 20, 2025 Team Status: Inactive Member Role/Relationship Status Dates Dr. Allyssa Velarde , DO Primary Care Provider Activ e Start: March 20, 2025 End: March 20, 2025 Ida Ye ASTROPHYSICS PROFESSOR, ASTROPHYSICS PROFESSOR-C Attending Provider Active Start: March 20, 2025 End: March 20, 2025 Ida Ye ASTROPHYSICS PROFESSOR, ASTROPHYSICS PROFESSOR-C Referring Provider Active Start: March 20, 2025 End: March 20, 2025 Team Status: Inactive Member Role/Relationship Status Dates Dr. Allyssa Velarde DO Primary Care Provider Activ e Start: March 26, 2025 End: March 26, 2025 Dr. Allyssa Velarde DO Referring Provider Active Start: March 26, 2025 End: March 26, 2025 [facility] Self Schedule Attending Provider Active Start: [...] or prosecute any alcohol or drug abuse patient.[facility] the event this information is protected by the Federal Confidentiality of Alcohol and Drug Abuse Patient Records regulations: The Federal rules restrict any use of the information to criminally investigate or prosecute any alcohol or drug abuse patient.[facility] the event this information is protected by the Federal Confidentiality of Alcohol and Drug Abuse Patient Records regulations: The Federal rules restrict any use of the information to criminally investigate or prosecute any alcohol or drug abuse patient.[facility] Reason for Visit (unrecogniz ed section and [...] BE BASED ON THE PRIMARY CLINICAL RECORDS. [facility] [facility]. provides no warranty or guarantee of the accuracy or completeness of information in this document.
[2025-04-22 09:46] LABS: Hematocrit 29.7 % (37-47); Hemoglobin 10.1 g/dL (12.0-15.0); Immature Granulocytes Count 0.120 X10^3/uL (0.0-0.0); Mean Corp Hgb Conc 34.0 g/dL (32-36); Mean Corpuscular Volume 77.3 fL (81-99); Mean Platelet Vol. 11.9 fl (6.2-12.0); NRBC Flagged by Analyzer 0 % (0-5); Platelet Count 162 K/mm3 (150-450); RBC Distribution Width CV 13.7 % (11.6-14.6); RBC Distribution Width SD 38.3 fl (35.1-43.9); Red Blood Count 3.84 M/mm3 (4.2-5.4); White Blood Count 15.2 K/mm3 (4.4-11.0)
[2025-04-22] MEDS: Lactated Ringers 1,000 ML 50 ML IV (10:42)
--- NOTE | 2025-04-22 10:42 | HP.PCM.OB_ITS ---
HPI - General General Date of Admission: 04/22/25 Chief Complaint: contractions HPI Narrative SARITHA GALLOWAY, is a 30 F who presents at 39.5 with contractions starting overnight that progressively intensified and became closer together. denies lof/vb. has good fm. Maternal Data Information JOE Calculator Estimated Delivery Date Method Current WG Current Estimate 04/24/25 LMP (Certain) 39w 5d Other Estimates 04/25/25 Ultrasound #1 39w 4d PFSH PFSH Medical History Conjunctivitis, right eye Hx of abnormal cervical Pap smear Complete Spotting Heartburn Non-smoker Cholelithiases Frequent headaches Home Medications ?Medication ?Instructions ?Recorded ?Last Taken ?Type multivitamin no.47-iron fum 27 1 cap PO DAILY 09/27/24 04/21/25 08:00 History mg-folate no.1 1 mg-dha 300 mg 1 cap capsule (PNV-DHA) loratadine 10 mg tablet (Claritin) 10 mg PO QDAY 12/28 Unknown History Allergy/AdvReac Type Severity Reaction Status Date / Time No Known Allergies Allergy Verified 04/22/25 09:04 Family History Mother Diabetes Hypertension Grandmother Heart disease Surgical History History of laparoscopic cholecystectomy (~03/2022) Hx of wisdom tooth extraction Social History adopted: No household members: spouse and children number of children: 1 current occupational status: employed 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 current occupational 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: Yes (bloodborne pathogens) pets and animals: Yes pets and animals: dog(s) history of recent travel: No ([place], [place]) sexually active: Yes Smoking Status: Never smoker alcohol intake: current alcohol intake frequency: a few times a month Alcohol type: beer and wine details: not while substance use type: does not use well-balanced diet: daily or most days caffeine: No eating out: 1-3 times/week during the past year weight has: increased > 10 lbs what type of physical activity do you participate in: walking frequency: 1-2 times per week duration: 15-30 minutes/day maynor/mu-ism: None seatbelt use: always do you feel safe at home: Yes additional social history: - Dave History 3 Elective abortions Hx Para 1 Spontaneous abortions 1 Hx # Term Pregnancies Ectopic pregnancies Hx # Pregnancies Multiple births # of living children 1 Past Pregnancies Del. Date Name GA/Weeks Outcome Route Bth Weight Infant Gen Labor Lgth Anesthesia Del Locatn Provider FOB 11/20/22 miscarriage @5-6 wks 09/24/23 Gregoryainey 40 live - full term 7#9oz Female ep idural [facility] Dr. Adrianna Acosta Delivery Date: 09/24/23 Last Updated by: Macrina Schwab COVID, vanishing twin, 2nd degree laceration Visit Details Expected Delivery Route/Plan Labor Preferences- CB/BF classes: no labor support person: Dave labor intervention preferences: [] pain management options preferred: epidural cut cord/dad catch: YES : yes PP control planned: discussed possible routes of delivery and associated risks: [] special requests: [] Plans Covid status: [] Flu vaccine: [] Tdap vaccine: given Rhogam: NA LARC form signed: yes Problem list reviewed and updated with the most current plan of care details and appropriate orders placed. Relevant counseling for the gestational age provided. Continue routine care and follow up unless otherwise noted in visit notes/problem list details OB Flowsheet Initial Weight: Not Recorded Date -?-?-?-?-?-?-?-?-?-?-?-?- EGA Weight BP Urine Prot -?-?-?-?-?-?-?-?-?-?-?-?- Glucose FHR FuHt Pres Dilation -?-?-?-?-?-?-?-?-?-?-?-?- Effaced St Visit Note 10/05/24 -?-?-?-?-?-?-?-?-?-?-?-?- 11w 2d 164 lb 120/75 -?-?-?-?-?-?-?-?-?-?-?-?- 169 -?-?-?-?-?-?-?-?-?-?-?-?- JV- CRL is consi stent with LMP. She declines NIPT. wants to do anatomy scan in [place]. 11/02/24 -?-?-?-?-?-?-?-?-?-?-?-?- 15w 2d 160 lb 2 oz 122/85 Nega tive -?-?-?-?-?-?-?-?-?-?-?-?- Negative 150 -?-?-?-?-?-?-?-?-?-?-?-?- SM- no vb crampi ng 12/02/24 -?-?-?-?-?-?-?-?-?-?-?-?- 19w 4d 160 lb 2 oz 118/70 Nega tive -?-?-?-?-?--?-?-?-?-?-?-?- Negative 146 -?-?-?-?-?-?-?-?-?-?-?-?- -No VB. Luis cano. Repeat MFM US 12/26. 12/28/24 -?-?-?-?-?-?-?-?-?-?-?-?- 23w 2d 159 lb 2 oz 110/74 Nega tive -?-?-?-?-?-?-?-?-?-?-?-?- Negative 143 23 -?-?-?-?-?-?-?-?-?-?-?-?- [facility] UA neg for infection. Has not been drinking much fluid and encouraged. Good Fm. No VB, LOF. 01/23/25 -?-?-?-?-?-?-?-?-?-?-?-?- 27w 0d 161 lb 8 oz 107/75 Nega tive -?-?-?-?-?-?-?-?-?-?--?-?- Negative 140 27 -?-?-?-?-?-?-?-?-?-?-?-?- KW- no vb/lof/ct x. good fm. glucose today. LARC today. 02/06/25 -?-?-?-?-?-?-?-?-?-?-?-?- 29w 0d 162 lb 4 oz 112/75 Nega tive -?-?-?-?-?-?-?-?-?-?-?-?- Negative 135 29 -?-?-?-?-?-?-?-?-?-?-?-?- KW-no vb/lof/ctx . good fm. anemic-will start taking PNV and get HGB rechecked. 02/24/25 -?-?-?-?-?-?-?-?-?-?-?-?- 31w 4d 164 lb 126/79 Negative -?-?-?-?-?-?-?-?-?-?-?-?- Negative 135 32 -?-?-?-?-?-?-?-?-?-?-?-?- SM- no vb lof go od fm irreuglar ctx 03/08/25 -?-?-?-?-?-?-?-?-?-?-?-?- 33w 2d 162 lb 97/66 Trace -?-?-?-?-?-?-?-?-?-?-?-?- 100 g/dL 150 33 -?-?-?-?-?-?-?-?-?-?-?-?- JV- no lof, vagi nal bleeding, or dec fm. no complaints other than some air hunger of 03/20/25 -?-?-?-?-?-?-?-?-?-?-?-?- 35w 0d 162 lb 2 oz 98/64 Nega tive -?-?-?-?-?-?-?-?-?-?-?-?- Negative 141 34 -?-?-?-?-?-?-?-?-?-?-?-?- MH-No vB, LOF or CTX. Good FM. CBC today 03/30/25 -?-?-?-?-?-?-?-?-?-?-?-?- 36w 3d 165 lb 4 oz 100/68 Nega tive -?-?-?-?-?-?-?-?-?-?-?-?- Negative 135 36 Cephalic 2 .5 -?-?-?-?-?-?-?-?-?-?-?-?- 70 -2 KW- No vb/ lof/ctx. good fm GBS today. labor precautions 04/03/25 -?-?-?-?-?-?-?-?-?-?-?-?- 37w 0d 165 lb 2 oz 116/74 Nega tive -?-?-?-?-?-?-?-?-?-?-?-?- Negative 140 36 -?-?-?-?-?-?-?-?-?-?-?-?- KW- no vb/lof/ct x. good fm. GBS neg. declines vaginal exam 04/13/25 -?-?-?-?-?-?-?-?-?-?-?-?- 38w 3d 170 lb 5 oz 116/83 Nega tive -?-?-?-?-?-?-?-?-?-?-?-?- Negative 120 37.5 -?-?-?-?-?-?-?-?-?-?-?-?- JV- patient libby trent declines pelvic exam. She does report a decrease movement over the last couple of days. no loss of fluid or vaginal bleeding. cramping is mild. 04/17/25 -?-?-?-?-?-?-?-?-?-?-?-?- 39w 0d 167 lb 1 oz 125/84 Nega tive -?-?-?-?-?-?-?-?-?-?-?-?- Negative 140 38 Cephalic 2 .5 -?-?-?-?-?-?-?-?-?-?-?-?- 70 -2 SM- no vb lof good fm no reuglar ctx discussed IOL by 40-41 weeks, membrane sweep next week. NST FHR Rate Baby A Baseline: 120 Variability:: Moderate Accelerations:: 15 x 15 Decelerations:: Early NST Reactive:: Yes FHR Category:: Category I Uterine Activity:: f2evezupl Vital Signs Vital Signs Vital Signs: 04/22/25 09:00 04/22/25 09:00 04/22/25 09:00 Temperature Temperature Source Pulse Rate 70 73 Respiratory Rate Blood Pressure 110/71 BP Systolic 110 BP Diastolic 71 Pulse Ox 04/22/25 09:00 04/22/25 09:00 04/22/25 09:00 Temperature Temperature Source Temporal Pulse Rate Respiratory Rate 16 Blood Pressure BP Systolic BP Diastolic Pulse Ox 98 04/22/25 09:00 Temperature 97.2 F L Temperature Source Pulse Rate Respiratory Rate Blood Pressure BP Systolic BP Diastolic Pulse Ox Weight Weight: 169 lb 15.622 oz Body Mass Index (BMI) 28.3 Labs Labs Labs: Blood Type O POSITIVE Antibody Screen NEGATIVE Hct 29.7 % (37-47) L Hgb 10.1 g/dL (12.0-15.0) L Syphilis Total Ab Nonreactive (Nonreactive) Rubella IgG Antibody Reactive (Nonreactive) Hep Bs Antigen Non-Reactive (Nonreactive) Hepatitis C Antibody Non-Reactive (Nonreactive) Chlamydia DNA (ASIF) Negative (Negative) N.gonorrhoeae DNA (ASIF) Negative (Negative) HIV 1&2 Antibody Nonreactive (Nonreactive) Glucose 1 Hr 50 gm 121 mg/dL (70-140) Gest Glucose Tolerance MG/DL Assessment & Plan (1) Anemia affecting : QUALIFIERS: Trimester: third trimester Qualified Code(s): O99.013 - Anemia complicating , third trimester COMMENT: Was not taking PNV w/FE and started. cbc in 4 weeks: persists and FE added (2) UTI in : QUALIFIERS: Trimester: second trimester Qualified Code(s): O23.42 - Unspecified infection of urinary tract in , second trimester COMMENT: Dx [facility] urgent care. Needs rpt culture next visit/negative (3) Supervision of high-risk : QUALIFIERS: Trimester: third trimester Qualified Code(s): O09.93 - Supervision of high risk , unspecified, third trimester COMMENT: PRR, , JOE 04/24/25, girl JUDIE [place], Dave (4) : QUALIFIERS: Weeks of gestation: 39 weeks Qualified Code(s): Z3A.39 - 39 weeks gestation of COMMENT: GBS neg, declined NIPT & Carrier testing PLAN: Plan Patient presents IAL, plan expectant management for , pitocin/AROM PRN if needed. Pain management: plans epidural. GBS neg. Management of any complications: none I have reviewed the [facility] and made any clinically relevant updates. updated in exam, poc and admission.
[2025-04-22] MEDS: fentaNYL-bupivacaine (epidural) 100 ML BAG EPIDURAL (11:37)
[2025-04-22 12:10] LABS: Syphilis Antibodies Nonreactive (Nonreactive)
[2025-04-22] MEDS: Oxytocin 15 Units/NS 250ml 15 UNITS/250 ML IV.SOLN 83 UNITS IV (14:36)
--- NOTE | 2025-04-22 14:50 | OB.VAGDELI_ITS ---
Assessment & Plan (1) (spontaneous vaginal delivery): COMMENT: IAL Lc girl Maternal Data Information JOE Calculator Estimated Delivery Date Method Current WG Current Estimate 04/24/25 LMP (Certain) 39w 5d Other Estimates 04/25/25 Ultrasound #1 39w 4d Gestational age: 39.5 Vaginal Delivery Maternal Presentation Maternal Presentation: Active Labor Maternal Presentation: at 39.5 presenting in active labor, epiduralized and progressed to fully dilated, SROM clear fluid during vaginal exam. Vaginal Delivery Information Procedure Performed: Spontaneous Vaginal Delivery Pre-Procedure Diagnosis: see problem list Post-Procedure Diagnosis: Type of anesthesia: Epidural Estimated Blood Loss: 250 Time of Delivery: 14:19 Findings Description of procedure: Patient began pushing and delivered the head in the SANTOS presentation. The head was delivered atraumatically . The anterior and posterior shoulders delivered without complication followed by the rest of the and the infant was placed on the maternal abdomen. Delayed cord clamping was employed for approximately 60 seconds. Cord was clamped and cut and gentle traction was applied to the cord and the placenta delivered spontaneously immediately following it was noted to be intact with three-vessel cord. The perineum and vagina were inspected and noted to have a second degree and left labial tear repaired with 3-0 vicryl. EBL was 250cc. Patient and tolerated delivery well. Presentation: Vertex Amniotic Membrane Rupture Type: Spontaneous Amniotic Fluid Description: Clear Placental Delivery Description: Spontaneous Placenta Disposition: [facility] Cord Vessel Description: 3 Vessels Cord Entanglement: None Infant A Gender: Female Post Vaginal Deli Medications given after delivery: IV Pitocin Laceration: 2nd degree Procedures Urinary/Genital [id number]: [id number] Vaginal Delivery [facility]
[2025-04-23 03:51] VITALS: BP 112/58; PULSE 73; O2SAT 98
[2025-04-23 03:56] VITALS: BP 112/58; PULSE 86; RESP 16; O2SAT 99
[2025-04-23 09:58] VITALS: BP 116/76; PULSE 90; RESP 16; TEMP 36.7; O2SAT 98
[2025-04-23 09:59] VITALS: BP 116/76; PULSE 100
--- NOTE | 2025-04-23 10:41 | PCM.PN.OB ---
Subjective Subjective Patient doing well without complaints. Tolerating PO. Ambulating and voiding without difficulty. feeding well. Denies chest pain, shortness of breath, calf pain/swelling, fevers, chills, lightheadedness. Objective Data Objective Data Vital Signs: Vital Signs Temp Pulse Resp BP Pulse Ox O2 Del Method 98.0 F 100 16 116/76 98 Room Air 04/23/25 09:58 04/23/25 09:59 04/23/25 09:58 04/23/25 09:59 04/23/25 09:58 04/23/25 09:58 Oxygen Delivery Method Room Air Weight: 169 lb 15.622 oz Body Mass Index (BMI) 28.3 Intake & Output: Intake and Output for Last 24 Hours 04/21/25 04/22/25 04/23/25 23:59 23:59 23:59 Intake Total 1694.16 / 1694.16 Output Total 2200 / 2200 Balance -505.84 / -505.84 Lab / Micro Data 04/22/25 09:30 Labs: Laboratory Results - last 24 hr 04/22/25 09:30: Syphilis Total Ab Nonreactive ROS Constitutional Constitutional: Reports systems reviewed and no addt'l complaints, except as documented Cardiovascular Cardiovascular: Reports systems reviewed and no addt'l complaints, except as documented Respiratory/Chest Respiratory/Chest: Reports systems reviewed and no addt'l complaints, except as documented Gastrointestinal Gastrointestinal: Reports systems reviewed and no addt'l complaints, except as documented Physical Exam Const alert, oriented x3 and no apparent distress HEENT Head and Scalp: atraumatic Resp normal respiratory effort GI soft to palpation and non-tender Bimanual Exam - Vag & Uterus: uterus non-tender Uterus Palpation: uterus fundus firm (below Umbilicus) Assessment & Plan (1) (spontaneous vaginal delivery): COMMENT: IAL Lc girl (2) Anemia affecting : QUALIFIERS: Trimester: third trimester Qualified Code(s): O99.013 - Anemia complicating , third trimester COMMENT: Was not taking PNV w/FE and started. cbc in 4 weeks: persists and FE added (3) UTI in : QUALIFIERS: Trimester: second trimester Qualified Code(s): O23.42 - Unspecified infection of urinary tract in , second trimester COMMENT: Dx [facility] urgent care. Needs rpt culture next visit/negative PLAN: Plan s/p PPD # 1 1. routine post delivery care 2. breast feeding- support given 3. rh positive 4. rubella immune
[2025-04-23 13:45] VITALS: BP 111/74; PULSE 95; RESP 16; TEMP 36.6; O2SAT 98
[2025-04-23 13:46] VITALS: BP 111/74; PULSE 87
== END 2025-04-23 15:45 | disposition home or self-care (01) | DRG 807 ==
LOC: WPOUT 09:13 → WP 09:14
PROVIDERS: Admitting Provider Registered Nurse; Referring Provider Registered Nurse; Visit Provider Registered Nurse
DX: O99.02 Anemia complicating childbirth (principal); Z37.0 Single live birth; N96 Recurrent pregnancy loss; O70.1 Second degree perineal laceration during delivery; O99.893 Other specified diseases and conditions complicating puerperium; Z3A.39 39 weeks gestation of pregnancy; Z90.49 Acquired absence of other specified parts of digestive tract; Z87.440 Personal history of urinary (tract) infections
CPT/HCPCS: 59025; 85025; 86780; 86850; 86900; 86901; 99221; G0378

== ENCOUNTER 2025-06-27 15:05 | Outpatient (CLI) | payer OTHER, SELFPAY ==
--- OUTSIDE RECORDS SUMMARY | 2025-06-27 15:38 | XMS RPT_ITS | CCD ---
Author Organization [facility] Care Team Providers Care Credit Or Loans Officer Name Role Phone EMPLOYEE, HEALTH Unavailable Unavailable EMPLOYEE, HEALTH Unavailable Unavailable EMPLOYEE, HEALTH Unavailable Unavailable EMPLOYEE, HEALTH Unavailable Unavailable EMPLOYEE, HEALTH Unavailable Unavailable EMPLOYEE, HEALTH Unavailable Unavailable Dr. Allyssa Velarde Primary Care Provider 1(12 [phone] Dr. Allyssa Velarde Referring Provider Dr. Allyssa Godinez Attending Provider 1(330) Dr. Charly Gonzales Attending Provider Dr. Charly Gonzales Other Provider Dr. Allyssa Velarde Primary [...] Dr. Allyssa Godinez Attending Provider [phone] Sterling SALESPERSON HOSIERY, SALESPERSON HOSIERY-C Ida Attending Provider 1(330 ) BRAYAN Osuna Attending Provider 1(330) Fiorella MENDEZ, ANDREA Patterson Attending Provider BRAYAN Daniel Attending Provider 1(330) Dr. Allyssa Velarde Primary Care Provider 1( 30) Dr. Allyssa Velarde Referring Provider Dr. Allyssa Godinez Attending Provider [phone] Cassi SALESPERSON HOSIERY, SALESPERSON HOSIERY-C Ida Attending Provider 1(330 ) Dr. Allyssa Velarde Primary Care Provider 1( 30) Dr. Allyssa Velarde Referring Provider Dr. Allyssa Godinez Attending Provider [phone] Cassi SALESPERSON HOSIERY, SALESPERSON HOSIERY-C Ida Attending Provider 1(330 ) Dr. Crissy [...] Adrianna HIGUERA, Dr. Woodward Attending Provider [phone] Nga ARIAS, Dr. Hamilton Emergency Provider [phone] ALLYSSA VELARDE Primary Care Unavailable FARRAH MCKEON Referring Unavailab KRISTINA Ordoñez Attending Unavailable FARRAH MCKEON Referring Unavailab MISAEL Llanos Attending Unavailable ALLYSSA VELARDE Primary Care Unavailable Nga ARIAS, Dr. Hamilton Attending Provider [phone] Sterling SALESPERSON HOSIERY-C, Ida Attending Provider 1(330) Corina Daniel CNM Attending Provider 1(330) Syd [...] Adrianna HIGUERA, Dr. Woodward Attending Provider [phone] Syd ARIAS, Dr. Allyssa Munoz Primary Care Provider Sterling SALESPERSON HOSIERY-C, Ida Referring Provider 1(330) Self Schedule, Now [facility] Attending Provider Brenda vailable Syd ARIAS, Dr. Allyssa Munoz Primary Care Provider Syd ARIAS, Dr. Allyssa Munoz Referring Provider [phone] Cassi SALESPERSON HOSIERY-C, Ida Attending Provider Osuna CNM, Tere Admit Provider [phone] Osuna CNM, Tere Attending Provider Osuna CNM, Tere Referring Provider Osuna CNM, Tere Other Provider [phone] Osuna, Tere Consulting Unavailable Osuna, Tere Referring Unavailable Osuna, Tere Admitting Unavailable Crissy Rodas Attending Unavailable Syd, Allyssa Munoz Primary Care Unavailable Syd, Allyssa Munoz Referring Unavailable Syd, Allyssaosmel Munoz Primary Care Unavailable Corina Daniel Attending Unavailable Syd, Allyssa Munoz Referring Unavailable Sterling SALESPERSON HOSIERY, Ida Attending Unavailable Syd, Allyssa Munoz Primary Care Unavailable Syd, Allyssa Munoz Referring Unavailable Cassi SALESPERSON HOSIERY, Ida Attending Unavailable Syd, Allyssaosmel Munoz Primary Care Unavailable Osuna, Tere Attending Unavailable Osuna, Tere Referring Unavailable Osuna, Tere Admitting Unavailable Syd, Allyssa Munoz Primary Care Unavailable Farrah Manning Attending Unavailabl e Farrah Manning Referring Unavailabl e Syd, Allyssa Munoz Primary Care Unavailable Alfonso Sylvester Attending Unavailable Syd, Allyssaosmel Munoz Primary Care Unavailable Tere Osuna Attending Unavailable Syd, Allyssa Munoz Referring Unavailable Cassi SALESPERSON HOSIERYIda Attending Unavailable Syd, Allyssa Munoz Primary Care Unavailable Syd, Allyssa Munoz Referring Unavailable Crissy Rodas Attending Unavailable Syd, Allyssa Munoz Primary Care Unavailable Farrah Manning Attending Unavailabl e Syd, Allyssaosmel Munoz Referring Unavailable Syd, Allyssaosmel Munoz Primary Care Unavailable Crissy Rodas Attending Unavailable Syd, Allyssa Munoz Referring Unavailable Syd, Allyssaosmel Munoz Primary Care Unavailable Syd, Allyssa Munoz Referring Unavailable Corina Daniel Attending Unavailable Syd, Allyssaosmel Munoz Primary Care Unavailable Syd, Allyssa Munoz Referring Unavailable Corina Daniel Attending Unavailable Syd, Allyssa Munoz Primary Care Unavailable [facility] SALESPERSON HOSIERY, Dhruv Owens Attending Unavailable Syd, Allyssa Munoz Primary Care Unavailable Syd, Allyssa Munoz Referring Unavailable Vande Velde, Farrah Referring Unavailabl e Vande Velde, Farrah Attending Unavailabl e Syd, Allyssa Munoz Primary Care Unavailable Vande Velde, Farrah Referring Unavailabl e Vande Velde, Farrah Attending Unavailabl e Syd, Allyssa Munoz Primary Care Unavailable Cassi SALESPERSON HOSIERY, Ida Attending Unavailable Cassi SALESPERSON HOSIERYIda Referring Unavailable Syd, Allyssa Munoz Primary Care Unavailable Syd, Allyssa Munoz Referring Unavailable Syd, Allyssa Munoz Primary Care Unavailable Corina Daniel Attending Unavailable Syd, Allyssa Munoz Referring Unavailable Syd, Allyssa Munoz Primary Care Unavailable Corina Daniel Attending Unavailable Syd, Allyssa Munoz Primary Care Unavailable Corina Daniel Attending Unavailable Vande Velde, Farrah Referring Unavailabl e Vande Velde, Farrah Attending Unavailabl e Syd, Allyssa Munoz Primary Care Unavailable Vande Velde, Farrah Attending Unavailabl e Syd, Allyssa Munoz Referring Unavailable Syd, Allyssa Munoz Primary Care Unavailable Syd, Allyssa Munoz Referring Unavailable Cassi SALESPERSON HOSIERY, Ida Attending Unavailable Syd, Allyssa Munoz Primary Care Unavailable Vande Velde, Farrah Attending Unavailabl e Syd, Allyssa Munoz Referring Unavailable Syd, Allyssa Munoz Primary Care Unavailable Syd, Allyssa Munoz Referring Unavailable Syd, Allyssa Munoz Primary Care Unavailable Crissy Rodas Attending Unavailable Syd, Allyssa Munoz Referring Unavailable Corina Daniel Attending Unavailable Syd, Allyssa Munoz Primary Care Unavailable Syd ARIAS, Dr. Allyssa Munoz Primary Care Physician Syd ARIAS, Dr. Allyssa Munoz Referring Provider [phone] Dr. Crissy Rodas MD Attending Physician Dylan Restrepo DO, Dr. Yan Attending Physician Cassi COKER-CIda Attending Physician [phone] Dhruv Villalpanod Attending Physician [phone] Fredy SCHMIDT, Corina Attending Physician [phone] Tere Osuna CNM Admitting Physician [phone] Tere Osuna CNM Attending Physician [phone] Tere Osuna CNM Nurse Practitioner [phone] Allergies Allergy Classification Reported Allergen(s) Allergy Type Date of Onset Reaction(s) Facility (4 sources) Azithromycin; Translations: [AZITHROMYCIN] Drug Allergy 11-18-2024 Rash [facility] Medications Current Medications Medication Drug Class(es) [...] delayed release oral tablet (3 sources) Start: 11-18-2024 doxylamine-pyridoxine, vit B6, 10-10 mg TbEC Indications: [...] each nostril loratadine 10 mg oral tablet (14 sources) Start: 12-28-2024 take 1 tablet by mouth once daily Loratadine (Claritin) 10 mg tablet Active 10 mg PO daily December 28, 2024 12:00am Complies with drug therapy Multivit 01-Okbm-Mlhupd 1-Dha (Pnv-Dha) 27 mg iron-1 mg -300 mg capsule (15 sources) Start: 09-27-2024 Multivit 91-Bufd-Shkxqg 1-Dha (Pnv-Dha) 27 mg iron-1 mg -300 mg capsule Active 1 NMA PO DAILY September 27, 2024 1:00am Complies with drug therapy Start: 09-27-2024 Multivit 47-Ir on-Folate 1-Dha (Pnv-Dha) 27 mg iron-1 mg -300 mg capsule Active 1 NMA PO DAILY September 27, 2024 1:00am Start: 09-27-2024 Multivit 47-Ir on-Folate 1-Dha (Pnv-Dha) 27 mg iron-1 mg -300 mg capsule Active NMA PO September 27, 2024 1:00am Completed/Discontinued Medications Medication Drug Class(es) Dates Sig (Normalized) Sig (Original) acetaminophen 325 mg / HYDROcodone bitartrate 5 mg oral tablet (20 sources) Opioid Agonist Start: 04-03-2022 End: 04-08-2022 Hydrocodone-Acetamino phen 5-325 mg tablet Discontinued 1 {tbl} PO Q4H as needed for pain April 03, 2022 April 07, 2022 12:00am April 08, 2022 12:03am Cholelithiasis Calculus of gallbladder without cholecystitis without obstruction Start: 04-03-2022 End: 04-08-2022 take 1 tablet by mouth every four hours Hydrocodone-Acetaminophen Discontinued 1 TABLET PO Q4H 24 01April 03, 2022 April 07, 2022 11:03pm acetaminophen [...] MG PO TWICE A DAY 40 10 May 03, 2019 11:00pm May 13, 2019 11:08pm To start only if symptoms as described in office today should appear; pt acknowledges understanding Start: 09-03-2017 End: 09-13-2017 take 2 capsules by mouth twice daily Amoxicillin 500 mg capsule Discontinued 1000 mg PO TWICE A DAY 40 10 September 03, 2017 1:00am September 12, 2017 1:00am September 13, 2017 1:07am Start: 09-03-2017 End: 09-13-2017 take 1000 mg by mouth twice daily Amoxicillin Discontinued 1000 MG PO TWICE A DAY 40 September 03, 2017 12:00am September 13, 2017 12:07am amoxicillin 875 mg / clavulanate 125 mg oral tablet (11 sources) Penicillin-class Antibacterial Start: 03-26-2025 End: 2025 [...] Start: 08-17-2017 End: 11-27-2022 Norethindrone Ac-Eth Estradiol (09/26 ()) 1-20 mg-mcg tablet Discontinued 1 {tbl} [...] 2017 1:00am metoclopramide 10 mg oral tablet (15 sources) Dopamine-2 Receptor Antagonist Start: 11-18-2024 End: 03-26-2025 take 1 tablet by mouth every six hours as needed for nausea and vomiting Metoclopramide Hcl 10 mg tablet Discontinued 10 mg PO EVERY 6 HOURS as needed for nausea and vomiting 14 November 18, 2024 12:00am March 26, 2025 8:54am norethindrone 0.35 mg oral tablet (15 sources) Start: 11-06-2023 End: 09-27-2024 take 1 tablet by mouth once daily Norethindrone (Contraceptive) 0.35 mg tablet Discontinued 0.35 mg PO DAILY 84 November 06, 2023 1:00am September 27, 2024 9:22am Encounter for contraceptive management Encounter for contraceptive management, unspecified start day 1 of menstrual cycle ondansetron 4 mg disintegrating oral tablet (20 sources) Serotonin-3 Receptor Antagonist Start: 09-08-2024 take 1 tablet by mouth every eight hours as needed ondansetron orally disintegrating (ZOFRAN ODT) 4 mg disintegrating tablet Take 4 mg by mouth every 8 hours as needed for nausea/vomiting. 09/08/2024 Active Start: 09-08-2024 End: 04-22-2025 take 1 tablet by mouth every six hours as needed for nausea and vomiting Ondansetron 4 mg tablet,disintegrating Discontinued 4 mg PO EVERY 6 HOURS as needed for nausea and vomiting 30 November 18, 2024 10:20am April 22, 2025 9:05am Start: 02-19-2023 End: 09-24-2023 take 1 tablet by mouth every eight hours as needed for nausea and vomiting Ondansetron 4 mg tablet,disintegrating Discontinued 4 mg PO Q8H as needed for nausea and vomiting 30 February 19, 2023 12:00am September 24, 2023 11:17am Start: 03-24-2022 take 4 mg by mouth t hree times daily as needed Ondansetron Active 4 MG PO 3 TIMES DAILY NEEDED March 24, 2022 6:26am oseltamivir 75 mg oral capsule (15 sources) Neuraminidase Inhibitor Start: 11-17-2024 End: 11-22-2024 [...] 2019 8:15am tobramycin 3 mg/ml ophthalmic solution (18 sources) Aminoglycoside Antibacterial Start: 07-20-2023 End: 07-23-2023 [...] without obstruction] Episodic Contraceptive and procreative management (15 sources) Patient encounter status; Translations: [Encounter for [...] Cervicogenic headache; Translations: [Cervicogenic headache] 08-17-2017 Episodic Inflammation; infection of eye (except that caused by tuberculosis or sexually transmitteddisease) (20 sources) Conjunctivitis of right eye; Translations: [Unspecified conjunctivitis] 07-20-2023 Episodic Influenza (15 sources) Influenza due to Influenza A virus; Translations: [Influenza due to other identified influenza virus with other respiratory manifestations] 11-18-2024 Episodic Menstrual disorders (20 sources) Menstrual spotting; Translations: [Excessive and frequent menstruation with regular cycle] 11-17-2022 Chronic Comment on above: hcg x 2 Nausea and vomiting (17 sources) Nausea and vomiting; Translations: [Nausea with [...] persists and FE added Other complications of (2 sources) Anemia complicating , third trimester; Translations: [Anemia complicating , third trimester] Onset: 04-17-2025 Chronic Other complications of (1 source) Anemia complicating , unspecified trimester; Translations: [Anemia complicating , unspecified trimester] Onset: 03-23-2025 Chronic Other complications of (20 sources) High risk ; Translations: [Supervision of high risk , unspecified, unspecified trimester] 02-12-2023 Episodic Comment on above: PRR, , JOE , PC Delainey, Dave PRR , JOE 2 4, girl, Delainey Dave PRR, , JOE , girl PC Delainey, Dave Other complications of (20 sources) Vanishing [...] not applicable] 03-16-2023 Episodic Other complications of (17 sources) Disease caused by 2019-nCoV; Translations: [Other [...] rpt culture next visit/negative Other complications of (8 sources) Reduced movement; Translations: [Decreased movements, unspecified trimester, not applicable or unspecified] 04-13-2025 Episodic Other complications of (2 sources) Unspecified infection of urinary tract in , second trimester; Translations: [Unspecified infection of urinary tract in , second trimester] Onset: 04-17-2025 Episodic Other complications of (2 sources) Supervision of high risk , unspecified, third trimester; Translations: [Supervision of high risk , unspecified, third trimester] Onset: 04-17-2025 Episodic Other complications of (1 source) Supervision of with other poor reproductive or obstetric history, third trimester; Translations: [Supervision of with other poor reproductive or obstetric history, third trimester] Onset: 05-03-2025 Episodic Other complications of (1 source) Abnormal [...] applicable or unspecified] Onset: 04-13-2025 Episodic Other conditions (15 sources) choroid plexus cyst 09-24-2023 Episodic Comment on above: NIPT:low risk, per p t resolved on anatomy US Other and delivery including normal (20 sources) ; Translations: [Encounter for supervision of normal , unspecified, unspecified trimester] Onset: 05-03-2025 02-12-2023 Episodic Comment on above: SM IOL decels po st fall 40 girl Delainey s/p fall, had two de cels on monitor, proceed with pit IOL declined NIPT & Salomon ier testing declines carrier. NI PT due to choroid plexus cyst:negative GBS GBS neg, declined NI PT & Carrier testing IAL Lc girl Other upper respiratory disease (1 source) Congestion of nasal sinus; Translations: [Nasal congestion] 11-18-2024 Episodic Other upper respiratory disease (1 source) Nasal congestion; Translations: [Congestion of nasal sinus] Onset: 11-18-2024 Episodic Other upper respiratory infections (20 sources) Sinusitis; Translations: [Chronic sinusitis, unspecified] 09-03-2017 Chronic Other upper respiratory infections (9 sources) Upper respiratory infection; Translations: [Acute upper respiratory infection, unspecified] Onset: 05-03-2025 05-04-2019 Episodic Residual codes; unclassified (7 sources) H/O: 1 miscarriage; Translations: [Personal history of other complications of , childbirth and the puerperium] 02-12-2023 Episodic Residual codes; unclassified (20 sources) Personal history of other complications of , childbirth and the puerperium; Translations: [Personal history of other genital system and obstetric disorders] 02-19-2023 Episodic Residual codes; unclassified (2 sources) 39 weeks gestation of ; Translations: [39 weeks gestation of ] Onset: 04-17-2025 Episodic Residual codes; unclassified (1 source) 37 weeks gestation of ; Translations: [37 weeks gestation of ] Onset: 04-03-2025 Episodic Residual codes; unclassified (1 source) 36 weeks gestation of ; Translations: [36 weeks gestation of ] Onset: 03-30-2025 Episodic Spondylosis; intervertebral disc disorders; other back problems (20 sources) Backache; Translations: [Dorsalgia, unspecified] Onset: 04-17-2025 Episodic Spontaneous (20 sources) with abortive outcome; Translations: [Complete or unspecified spontaneous without complication] 01-19-2023 Episodic Past or Other Problems Problem Classification Problem Date Documented Da te Episodic/Chronic Abdominal pain (20 sources) Right upper quadrant pain; Translations: [Right upper quadrant pain] Onset: 01-02-2025 04-01-2022 Episodic Immunizations and screening for infectious disease (1 source) Encounter for immunization; Translations: [Encounter for immunization] Onset: 02-06-2025 Episodic Other complications of (20 sources) Supervision of high risk , unspecified, unspecified trimester; Translations: [Supervision of unspecified high-risk ] Onset: 11-02-2024 02-19-2023 Episodic Other complications of (1 source) Supervision of high risk , unspecified, second trimester; Translations: [Supervision of high risk , unspecified, second trimester] Onset: 02-24-2025 Episodic Other complications of (1 source) Diseases of the respiratory system complicating , second trimester; Translations: [Diseases of the respiratory system complicating , second trimester] Onset: 11-30-2024 Episodic Residual codes; unclassified (1 source) 31 weeks gestation of ; Translations: [31 weeks gestation of ] Onset: 02-24-2025 Episodic Residual codes; unclassified (1 source) 27 weeks gestation of ; Translations: [27 weeks gestation of ] Onset: 01-23-2025 Episodic Residual codes; unclassified (1 source) 15 weeks gestation of ; Translations: [15 weeks gestation of ] Onset: 11-02-2024 Episodic Unclassified (20 sources) choroid plexus cyst; Translations: [Choroid plexus cyst of fetus] 05-19-2023 NEGATED: Highlighted row has been ruled out!Unclassified (3 sources) No known active problems 11-18-2024 Results Test Name Value Interpretation Reference Range Facility Agent Telegrapher Office Visit Reporton 06-08-2025 Agent Telegrapher Office Visit Report [facility] [address], [facility] [address] [place] [address] OFFICE VISIT Date of Service: 06/08/25 MR#: [id number] Acct: [id number] Name: EDEL GALLOWAY Rep #: [id number] : 1995 Provider: BRAYAN Jj ams Age/Sex: 30/F Location: [facility] [place] Status: Signed Intake Vital Signs 04/22/25 09:00 06/08/25 14:00 Height 5 ft 5 in 5 ft 5 in Weight: 151 lb 7 oz BMI 25.2 BP 115/76 Intake Visit Reasons: visit (obstetrics) Chief Complaint: Visit Rewinder Operator Required: No Is patient in pain?: No Allergies No Known Allergies Allergy (Verified 06/08/25 14:00) Medications ???Medication ???Instructions ???Recorded ???Confirmed ???Type multivitamin no.47-iron fum 27 1 cap PO DAILY 09/27/24 06/08/25 H istory mg-folate no.1 1 mg-dha 300 mg capsule (PNV-DHA) loratadine 10 mg tablet (Claritin) 10 mg PO QDAY 12/28/24 06/08/25 History : Yes [facility] Medical History Conjunctivitis, right eye Hx of abnormal cervical Pap smear Complete Spotting Heartburn Non-smoker Cholelithiases Frequent headaches Surgical History History of laparoscopic cholecystectomy ( 03/2022) Hx of wisdom tooth extraction Family History Mother Diabetes Hypertension Grandmother Heart disease Social History adopted: No household members: spouse and children number of children: 1 current occupational status: employed 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 Date Name GA/Weeks Outcome Route Bth Weight Infant Gen Labor Lgth Anesthesia Del Locatn Provider FOB 11/20/22 miscarriage @5-6 wks 09/24/23 Delericy 40 live - full term 7#9oz Female epidural [facility] Jonah Acosta 04/22/25 Vadim 39 live - full term 7lb 13oz Female epidural [facility] Yany Osuna Delivery Date: 09/24/23 Last Updated by: Macrina Montagueion COVID, vanishing twin, 2nd degree laceration Delivery Date: 04/22/25 Last Updated by: Humera Gallegos see problem list for complications, IAL LC girl Depression Screen PHQ-2/9 PHQ-2 Over the last 2 weeks, how often have you been bothered by any of the following problems? 1. Little interest or pleasure in doing things: not at all 2. Feeling down, depressed, or hopeless: not at all Total score: 0 Post HPI Routine Follow-Up: Details: EDEL GALLOWAY is a 30 year old who presents for her post visit. Infant Feeding: Breast Menses resumed: No [place] since delivery: Yes Emotional Support: Yes Last Pap:: 02/19/23 Control Method: requesting Mirena IUD ROS Const All systems reviewed are unremarkable except as noted in H Reports system reviewed and no additional complaints, except as documented Card Reports system reviewed and no additional complaints, except as documented GI Reports system reviewed and no additional complaints, except as documented Neuro Yes system reviewed and no additional complaints, except as documented Psych Reports system reviewed and no additional complaints, except as documented, Denies anhedonia, Denies depression, Denies homicidal ideation and Denies suicidal ideation Exam Const General: cooperative, healthy appearing and comfortable Nutritional Appearance: average body habitus Orientation: alert, awake and oriented x3 Neck Neck: normal visual inspection and full ROM Resp Effort Inspection: normal respiratory effort, able to speak in complete sentences and symmetric chest movement GI Inspection: normal to inspection Palpation: soft External Female Exam: normal external appearance (more content not included)... Normal Absolute lymphocyte countOrd ered By: Tere Osuna on 04-22-2025 Lymphocytes Auto (Unsp spec) [#/Vol] 1.77 10*3/uL 0.83-4.51 Absolute neutrophil countOrd ered By: Tere Osuna on 04-22-2025 Neutrophils (Bld) [#/Vol] 12.4 10*3/uL High 2.0-7.7 Automated lymphocyte count a s percentage of total leukocytesOrdered By: Tere Osuna on 04-22-2025 Lymphocytes/100 WBC Auto (Unsp spec) 11.6 % Low 19-41 Basophil percentageOrdered B y: Tere Osuna on 04-22-2025 Basophils/100 WBC (Bld) 0.2 % 0-1 [facility] CBC W/Diff, Automatedon 04-07 Absolute Lymph 1.77 X10 3/uL Normal 0.83-4.51 Comment on above: Performed By: #### Milo MARTINO, L100.0100 #### [id number] [place], [address] Absolute Neut 12.4 X10 3/uL High 2.0-7.7 Comment on above: Performed By: #### Milo MARTINO, L100.0100 #### [id number] [place], [address] Basophils/100 WBC (Bld) 0.2 % Normal 0-1 [facility] Comment on above: Performed By: #### Milo MARTINO, L100.0100 #### [id number] [place], [address] Eosinophils/100 WBC (Bld) 0.3 % Normal 0-5 Comment on above: Performed By: #### Milo MARTINO, L100.0100 #### [id number] [place], [address] Erythrocyte distribution width (RBC) [Ratio] 13.7 % Normal 11.6-14.6 Comment on above: Performed By: #### Milo MARTINO, L100.0100 #### [id number] [place], [address] Hematocrit (Bld) [Volume fraction] 29.7 % Low 37-47 Comment on above: Performed By: #### Milo MARTINO, L100.0100 #### [id number] [place], [address] Hemoglobin (Bld) [Mass/Vol] 10.1 g/dL Low 12.0-15.0 Comment on above: Performed By: #### Milo MARTINO, L100.0100 #### [id number] [place], [id number] IG% 0.800 Normal 0.0-0.9 Comment on above: Result Comment: IG% - Immature Granulocytes (promyelocytes, myelocytes and metamyelocytes) > 1% indicates that a LEFT SHIFT is Present. Performed By: #### Milo MARTINO, L100.0100 #### [id number] [place], [id number] Lymphocytes/100 WBC (Bld) 11.6 % Low 19-41 Comment on above: Performed By: #### Milo MARTINO, L100.0100 #### [id number] [place], [address] MCH (RBC) [Entitic mass] 26.3 pg Low 27.0-32.0 Comment on above: Performed By: #### Milo MARTINO, L100.0100 #### [id number] [place], [id number] MCHC (RBC) [Mass/Vol] 34.0 g/dL Normal 32-36 [facility] Comment on above: Performed By: #### Milo MARTINO, L100.0100 #### [id number] [place], [address] MCV (RBC) [Entitic vol] 77.3 fL Low 81-99 [facility] Comment on above: Performed By: #### Milo MARTINO, L100.0100 #### [id number] [place], [address] Monocytes/100 WBC (Bld) 5.5 % Normal 0-10 W [facility] Comment on above: Performed By: #### Milo MARTINO, L100.0100 #### [id number] [place], [address] Neutrophils/100 WBC (Bld) 81.6 % High 47-70 Comment on above: Performed By: #### Milo MARTINO, L100.0100 #### [address] [place], [address] Nucleated RBC (Bld) [#/Vol] 0 10*3/uL Normal 0-5 Comment on above: Performed By: #### Milo MARTINO, L100.0100 #### [id number] [place], [address] Platelet mean volume (Bld) [Entitic vol] 11.9 fL Normal 6.2-12.0 Comment on above: Performed By: #### Milo MARTINO, L100.0100 #### [id number] [place], [address] Platelets (Bld) [#/Vol] 162 10*3/uL Normal 150-450 Comment on above: Performed By: #### Milo MARTINO, L100.0100 #### [address] [place], [address] RBC (Bld) [#/Vol] 3.84 10*6/uL Low 4.2-5.4 [facility] Comment on above: Performed By: #### Milo MARTINO, L100.0100 #### [address] [place], [address] RDW SD 38.3 fl Normal 35.1-43.9 Comment on above: Performed By: #### Milo MARTINO, L100.0100 #### [address] [place], [address] WBC (Bld) [#/Vol] 15.2 10*3/uL High 4.4-11.0 [facility] Comment on above: Performed By: #### B TS, L100.0100 #### [address] [place], [address] Eosinophil percentageOrdered By: Tere Osuna on 04-22-2025 Eosinophils/100 WBC (Bld) 0.3 % 0-5 Erythrocyte distribution wid th ratioOrdered By: Tere Osuna on 04-22-2025 Erythrocyte distribution width (RBC) [Ratio] 13.7 % 11.6-14.6 Erythrocyte distribution wid th standard deviationOrdered By: Tere Osuna on 04-22-2025 Erythrocyte distribution width (RBC) [Ratio] 38.3 fl 35.1-43.9 H AND P Exam - OB/GYNon 04-07 H&P Exam - [facility] [employer] [facility] [address] [place] [address] 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 Allyssa Velarde, DO Status:ADM IN Location: [id number] HPI - General General Date of Admission: 04/22/25 Chief Complaint: contractions HPI Narrative EDEL GALLOAWY, is a 30 F who presents at 39.5 with contractions starting overnight that progressively intensified and became closer together. denies lof/vb. has good fm. Maternal Data Information JOE Calculator Estimated Delivery Date Method Current WG Current Estimate 04/24/25 LMP (Certain) 39w 5d Other Estimates 04/25/25 Ultrasound #1 39w 4d PFSH PFSH Medical History Conjunctivitis, right eye Hx of abnormal cervical Pap smear Complete Spotting Heartburn Non-smoker Cholelithiases Frequent headaches Home Medications ???Medication ???Instructions ???Recorded ???Last Taken ???Type multivitamin no.47-iron fum 27 1 cap PO DAILY 09/27/24 04/21/25 0 8:00 History mg-folate no.1 1 mg-dha 300 mg 1 cap capsule (PNV-DHA) loratadine 10 mg tablet (Claritin) 10 mg PO QDAY 12/28/24 Unknown H istory Allergy/AdvReac Type Severity Reaction Status Date / Time No Known Allergies Allergy Verified 04/22/25 09:04 Family History Mother Diabetes Hypertension Grandmother Heart disease Surgical History History of laparoscopic cholecystectomy ( 03/2022) Hx of wisdom tooth extraction Social History adopted: No household members: spouse and children number of children: 1 current occupational status: employed 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 occupational 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: Yes (bloodborne pathogens) [...] 1-2 times per week duration: 15-30 minutes/day maynor/orthodox: None seatbelt use: always do you feel [...] live - full term 7#9oz Female epidural [facility] Jonah Acosta Delivery Date: 09/24/23 Last Updated by: Macrina TEJADA, vanishing twin, 2nd degree laceration Visit Details Expected Delivery Route/Plan Labor Preferences- CB/BF classes: no labor support person: Dave labor intervention preferences: [] pain management options preferred: epidural cut cord/dad catch: YES : yes PP control planned: discussed possible routes of delivery and associated risks: [] special requests: [] Plans Covid status: [] Flu vaccine: [] Tdap vaccine: given Rhogam: NA LARC form signed: yes Problem list reviewed and updated with the most current plan of care details and appropriate orders placed. Relevant counseling for the gestational age provided. Continue routine care and follow up unless otherwise noted in visit notes/problem list details OB Flowsheet Initial Weight: Not Recorded Date -???-???-???-???-???-? ??-???-???-???-???-??? -???- EGA Weight BP Urine Prot -???-???-???-???-???-? ??-???-???-???-???-??? -???- Glucose FHR FuHt Pres Dilation -???-???-???-???-???-? ??-???-???-???-???-??? -???- Effaced St Visit Note 10/05/24 -???-???-???-???-???-? ??-???-???-???-???-??? -???- 11w 2d 164 lb 120/75 -???-???-???-???-???-? ??-???-???-???-???-??? -???- 169 -???-???-???-???-???-? ??-???-???-???-???-??? -???- JV- CRL is c onsistent with LMP. She declines NIPT. wants to do anatomy scan in [place]. 11/02/24 -???-???-???-???-???-? ??-???-???-???-???-??? -???- 15w 2d 160 lb 2 oz 122/85 Negative -???-???-???-???-???-? ??-???-???-???-???-??? -???- Negative 150 -???-???-???-???-???-? ??-???-???-???-???-??? -???- (more content not included)... Normal Hematocrit Auto (Bld) [Volum e fraction]Ordered By: Tere Osuna on 04-22-2025 Hematocrit (Bld) [Volume fraction] 29.7 % Low 37-47 Hemoglobin measurementOrdere d By: Tere Osuna on 04-22-2025 Hemoglobin (Bld) [Mass/Vol] 10.1 g/dL Low 12.0-15.0 Immature granulocytes/100 WB C Auto (Bld)Ordered By: Tere Osuna on 04-22-2025 Immature granulocytes/100 WBC (Bld) 0.800 % 0.0-0.9 Comment on above: IG% - Immature Granu locytes (promyelocytes, myelocytes and metamyelocytes) > 1% indicates that a LEFT SHIFT is Present. MCV (mean corpuscular volume ) determinationOrdered By: Tere Osuna on 04-22-2025 MCV (RBC) [Entitic vol] 77.3 fL Low 81-99 [facility] MR/OB.VAGDELIon 04-22-2025 [facility] [address] [place] [address] OB Vaginal Delivery 04/22/25 1450 MR#: [id number] Acct: [id number] Name: EDEL GALLOWAY CHUY Rep #: [id number] : 1995 30 From: Tere Osuna CNYesenia PCP: Dr. Allyssa Velarde DO Status:ADM IN Location: [id number] Assessment Plan (1) (spontaneous vaginal delivery): COMMENT: IAL Lc girl Maternal Data Information JOE Calculator Estimated Delivery Date Method Current WG Current Estimate 04/24/25 LMP (Certain) 39w 5d Other Estimates 04/25/25 Ultrasound #1 39w 4d Gestational age: 39.5 Vaginal Delivery Maternal Presentation Maternal Presentation: Active Labor Maternal Presentation: at 39.5 presenting in active labor, epiduralized and progressed to fully dilated, SROM clear fluid during vaginal exam. Vaginal Delivery Information Procedure Performed: Spontaneous Vaginal Delivery Pre-Procedure Diagnosis: see problem list Post-Procedure Diagnosis: Type of anesthesia: Epidural Estimated Blood Loss: 250 Time of Delivery: 14:19 Findings Description of procedure: Patient began pushing and delivered the head in the SANTOS presentation. The head was delivered atraumatically . The anterior and posterior shoulders delivered without complication followed by the rest of the infant and the infant was placed on the maternal abdomen. Delayed cord clamping was employed for approximately 60 seconds. Cord was clamped and cut and gentle traction was applied to the cord and the placenta delivered spontaneously immediately following it was noted to be intact with three-vessel cord. The perineum and vagina were inspected and noted to have a second degree and left labial tear repaired with 3-0 vicryl. EBL was 250cc. Patient and infant tolerated delivery well. Presentation: Vertex Amniotic Membrane Rupture Type: Spontaneous Amniotic Fluid Description: Clear Placental Delivery Description: Spontaneous Placenta Disposition: [facility] Cord Vessel Description: 3 Vessels Cord Entanglement: None Infant A Gender: Female Post Vaginal Deli Medications given after delivery: IV Pitocin Laceration: 2nd degree Procedures Urinary/Genital 52xxx-59xxx: [id number] Vaginal Delivery global pk 04/22/25 1453 Cosigner Signature (if applicable): CC: BRAYAN Osuna; Dr. Allyssa Velarde, Signed Normal Mean corpuscular hemoglobin (MCH) determinationOrdered By: Tere Osuna on 04-22-2025 MCH (RBC) [Entitic mass] 26.3 pg Low 27.0-32.0 Mean corpuscular hemoglobin concentration (MCHC) determinationOrdered By: Tere Osuna on 04-22-2025 MCHC (RBC) [Mass/Vol] 34.0 g/dL 32-36 [facility] Mean platelet volume determi nationOrdered By: Tere Osuna on 04-22-2025 Platelet mean volume (Bld) [Entitic vol] 11.9 fL 6.2-12.0 Monocyte percentageOrdered B y: Tere Osuna on 04-22-2025 Monocytes/100 WBC (Bld) 5.5 % 0-10 [facility] Neutrophil percentageOrdered By: Tere Osuna on 04-22-2025 Neutrophils/100 WBC (Bld) 81.6 % High 47-70 Nucleated red blood cell per centageOrdered By: Tere Osuna on 04-22-2025 Nucleated RBC/100 WBC (Bld) [Ratio] 0 % 0-5 Platelet countOrdered By: Lissa Osuna on 04-22-2025 Platelets (Bld) [#/Vol] 162 10*3/uL 150-450 RBC Auto (Bld) [#/Vol]Ordere d By: Tere Osuna on 04-22-2025 RBC (Bld) [#/Vol] 3.84 10*6/uL Low 4.2-5.4 [facility] Syphilis Antibodieson 2024 Syphilis Abs Non-Reactive Normal Nonreactive Comment on above: Performed By: #### L 509.8002 #### [id number] [place], [place], [id number] Type AND Screenon 04-22-2025 Ab SCREEN GEL Negative Normal Comment on above: Order Comment: Labor Performed By: #### B TS, L100.0100 #### [address] [place], [place], [id number] White blood cell (WBC) count Ordered By: Tere Osuna on 04-22-2025 WBC (Bld) [#/Vol] 15.2 10*3/uL High 4.4-11.0 [facility] Laboratory - Chemistry and C hemistry - challengeOrdered By: Crissy Rodas on 04-17-2025 Glucose Ql (U) Negative Laboratory - UrinalysisOrder ed By: Crissy Rodas on 04-17-2025 Protein Ql (U) Negative Agent Telegrapher Office Visit Reporton 04-17-2025 Agent Telegrapher Office Visit Report [facility] [address], [address] [place] [address] OFFICE VISIT Date of Service: 04/17/25 MR#: [id number] Acct: [id number] Name: EDEL GALLOWAY Rep #: [id number] : 1995 Provider: Dr. Crissy viramontes MD Age/Sex: 30/F Location: [facility] [place] Status: Signed Intake Vital Signs 02/06/25 11:11 04/13/25 10:04 04/17/25 09:43 04/17/25 09:45 Height 5 ft 4 in 5 ft 4 in 5 ft 4 in 5 ft 4 in Weight: 167 lb 1 oz BMI 28.6 BP 125/84 H Intake Visit Reasons: 39wk ob Rewinder Operator Required: No Is patient in pain?: No Allergies No Known Allergies Allergy (Verified 04/17/25 09:42) Medications ???Medication ???Instructions ???Recorded ???Confirmed ???Type multivitamin no.47-iron fum 27 cap PO 09/27/24 04/17/25 History mg-folate no.1 1 mg-dha 300 mg capsule (PNV-DHA) ondansetron 4 mg disintegrating 4 mg PO Q6H PRN nausea and 11/18/2 5 04/17/25 Rx tablet vomiting #30 tabs [...] 1 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 Date Name GA/Weeks Outcome Route Bth Weight Gen Labor Lgth Anesthesia Del [facility] Provider FOB 11/20/22 miscarriage @5-6 wks 09/24/23 Delainey 40 live - full term 7#9oz Female epidural [facility] Jonah Acosta Delivery Date: 09/24/23 Last Updated by: Macrina TEJADA, vanishing twin, 2nd degree laceration HPI 39wk [...] [place]on. 0 (more content not included)... Normal Laboratory - Chemistry and C hemistry - challengeOrdered By: Farrah Restrepo on 04-13-2025 Glucose Ql (U) Negative Laboratory - UrinalysisOrder ed By: Farrah Restrepo on 04-13-2025 Protein Ql (U) Negative Agent Telegrapher Office Visit Reporton 04-13-2025 Agent Telegrapher Office Visit Report [facility] [address], [address] [place] [address] OFFICE VISIT Date of Service: 04/13/25 MR#: [id number] Acct: [id number] Name: EDEL GALLOWAY Rep #: [id number] : 1995 Provider: Dr. 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 wants to do anatomy scan in [place] (more content not included)... Normal Laboratory - Chemistry and C hemistry - challengeOrdered By: Corina Daniel on 04-03-2025 Glucose Ql (U) Negative Laboratory - UrinalysisOrder ed By: Corina Daniel on 04-03-2025 Protein Ql (U) Negative Agent Telegrapher Office Visit Reporton 04-03-2025 Agent Telegrapher Office Visit Report [facility] [address], [address] [place] [address] OFFICE VISIT Date of Service: 04/03/25 MR#: [id number] Acct: [id number] Name: EDEL GALLOWAY Rep #: [id number] : 1995 Provider: BRAYAN Jj ams Age/Sex: 30/F Location: [facility] [place] Status: Signed Intake Vital Signs 02/06/25 11:11 03/30/25 14:46 04/03/25 10:21 Height 5 ft 4 in 5 ft 4 in 5 ft 4 in Weight: 165 lb 2 oz BMI 28.3 BP 116/74 Intake Visit Reasons: 37wk ob Chief Complaint: 37wk ob Rewinder Operator Required: No Is patient in pain?: No [...] 1 current occupational status: 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 -???-???-???-???-???-? ??-???-???-???-???-??? -???- (more content not included)... Normal Rule out Beta Strep (Grp. B) on 2025 WILMAR Group B Beta Streptococcus is not isolated. Normal Comment on above: Performed By: #### M 100.2235 #### Laboratory [address] [place], [id number] Laboratory - Chemistry and C hemistry - challengeOrdered By: Corina Daniel on 03-30-2025 Glucose Ql (U) Negative Laboratory - UrinalysisOrder ed By: Corina Daniel on 03-30-2025 Protein Ql (U) Negative Agent Telegrapher Office Visit Reporton 03-30-2025 Agent Telegrapher Office Visit Report [facility] [address], [address] [place] [address] OFFICE VISIT Date of Service: 03/30/25 MR#: [id number] Acct: [id number] Name: EDEL GALLOWAY Rep #: [id number] : 1995 Provider: BRAYAN Jj ams Age/Sex: 29/F Location: [facility] [place] Status: Signed Intake Vital Signs 03/26/25 08:56 [...] Reasons: 36wk ob Chief Complaint: 36wk ob Rewinder Operator Required: No Is patient in pain?: No Allergies No Known Allergies Allergy (Verified 03/30/25 14:45) Medications ???Medication ???Instructions ???Recorded ???Confirmed ???Type multivitamin no.47-iron fum 27 cap PO 09/27/24 03/30/25 History mg-folate no.1 1 mg-dha 300 mg capsule (PNV-DHA) ondansetron 4 mg disintegrating 4 mg PO Q6H PRN nausea and 11/18/ 5 03/30/25 Rx tablet vomiting #30 tabs [...] 1 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 Date Name GA/Weeks Outcome Route Bth Weight Infant [facility] 11/20/22 miscarriage @5-6 wks 09/24/23 Miroslava 40 live - full term 7#9oz Female epidural [facility] Jonah Acosta Delivery Date: 09/24/23 [...] -???-???-???-???-???-? ??-???-? (more content not included)... Normal Screening beta-hemolytic Str eptococcus cultureOrdered By: Corina Daniel on 03-30-2025 Beta-hemolytic Streptococcus culture Group B Beta Streptococcus is not isolated. 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 Normal Absolute lymphocyte countOrd ered By: Farrah Guerrakrys on 03-20-2025 Lymphocytes Auto (Unsp spec) [#/Vol] 1.72 10*3/uL 0.83-4.51 Absolute neutrophil countOrd ered By: Farrah Guerrakrys on 03-20-2025 Neutrophils (Bld) [#/Vol] 6.3 10*3/uL 2.0-7.7 Automated lymphocyte count a s percentage of total leukocytesOrdered By: Farrahanel Restrepo on 03-20-2025 Lymphocytes/100 WBC Auto (Unsp spec) 19.3 % 19-41 Basophil percentageOrdered B y: Farrah Lauro on 03-20-2025 Basophils/100 WBC (Bld) 0.4 % 0-1 [facility] CBC W/Diff, Automatedon 03-07 Absolute Lymph 1.72 X10 3/uL Normal 0.83-4.51 Comment on above: Performed By: #### L 100.0100 #### [address] [place], [address] Absolute Neut 6.3 X10 3/uL Normal 2.0-7.7 Comment on above: Performed By: #### L 100.0100 #### [address] [place], [address] Basophils/100 WBC (Bld) 0.4 % Normal 0-1 [facility] Comment on above: Performed By: #### L 100.0100 #### [address] [place], [address] Eosinophils/100 WBC (Bld) 1.9 % Normal 0-5 Comment on above: Performed By: #### L 100.0100 #### [address] [place], [address] Erythrocyte distribution width (RBC) [Ratio] 13.1 % Normal 11.6-14.6 Comment on above: Performed By: #### L 100.0100 #### [address] [place], [address] Hematocrit (Bld) [Volume fraction] 31.2 % Low 37-47 Comment on above: Performed By: #### L 100.0100 #### [address] [place], [address] Hemoglobin (Bld) [Mass/Vol] 10.1 g/dL Low 12.0-15.0 Comment on above: Performed By: #### L 100.0100 #### [address] [place], [address] IG% 0.700 Normal 0.0-0.9 Comment on above: Result Comment: IG% - Immature Granulocytes (promyelocytes, myelocytes and metamyelocytes) > 1% indicates that a LEFT SHIFT is Present. Performed By: #### L 100.0100 #### [address] [place], [address] Lymphocytes/100 WBC (Bld) 19.3 % Normal 19-41 Comment on above: Performed By: #### L 100.0100 #### [address] [place], [address] MCH (RBC) [Entitic mass] 27.4 pg Normal 27.0-32.0 Comment on above: Performed By: #### L 100.0100 #### [address] [place], [address] MCHC (RBC) [Mass/Vol] 32.4 g/dL Normal 32-36 [facility] Comment on above: Performed By: #### L 100.0100 #### [address] [place], [address] MCV (RBC) [Entitic vol] 84.8 fL Normal 81-99 [facility] Comment on above: Performed By: #### L 100.0100 #### [address] [place], [address] Monocytes/100 WBC (Bld) 7.4 % Normal 0-10 [facility] Comment on above: Performed By: #### L 100.0100 #### [address] [place], [address] Neutrophils/100 WBC (Bld) 70.3 % High 47-70 Comment on above: Performed By: #### L 100.0100 #### [address] [place], [address] Nucleated RBC (Bld) [#/Vol] 0 10*3/uL Normal 0-5 Comment on above: Performed By: #### L 100.0100 #### [address] [place], [address] Platelet mean volume (Bld) [Entitic vol] 11.9 fL Normal 6.2-12.0 Comment on above: Performed By: #### L 100.0100 #### [address] [place], [address] Platelets (Bld) [#/Vol] 199 10*3/uL Normal 150-450 Comment on above: Performed By: #### L 100.0100 #### [address] [place], [address] RBC (Bld) [#/Vol] 3.68 10*6/uL Low 4.2-5.4 [facility] Comment on above: Performed By: #### L 100.0100 #### [address] [place], [address] RDW SD 40.3 fl Normal 35.1-43.9 Comment on above: Performed By: #### L 100.0100 #### [address] [place], [address] WBC (Bld) [#/Vol] 8.9 10*3/uL Normal 4.4-11.0 [facility] Comment on above: Performed By: #### L 100.0100 #### [address] [place], [address] Eosinophil percentageOrdered By: Farrah Restrepo on 03-20-2025 Eosinophils/100 WBC (Bld) 1.9 % 0-5 Erythrocyte distribution wid th ratioOrdered By: Farrah Restrepo on 03-20-2025 Erythrocyte distribution width (RBC) [Ratio] 13.1 % 11.6-14.6 Erythrocyte distribution wid th standard deviationOrdered By: Farrah Restrepo on 03-20-2025 Erythrocyte distribution width (RBC) [Ratio] 40.3 fl 35.1-43.9 Hematocrit Auto (Bld) [Volum e fraction]Ordered By: Farrah Restrepo on 03-20-2025 Hematocrit (Bld) [Volume fraction] 31.2 % Low 37-47 Hemoglobin measurementOrdere d By: Farrah Restrepo on 03-20-2025 Hemoglobin (Bld) [Mass/Vol] 10.1 g/dL Low 12.0-15.0 Immature granulocytes/100 WB C Auto (Bld)Ordered By: Farrah Restrepo on 03-20-2025 Immature granulocytes/100 WBC (Bld) 0.700 % 0.0-0.9 Comment on above: IG% - Immature Granu locytes (promyelocytes, myelocytes and metamyelocytes) > 1% indicates that a LEFT SHIFT is Present. Laboratory - Chemistry and C hemistry - challengeOrdered By: Ida Ye on 03-20-2025 Glucose Ql (U) Negative Laboratory - UrinalysisOrder ed By: Ida Ye on 03-20-2025 Protein Ql (U) Negative MCV (mean corpuscular volume ) determinationOrdered By: Farrah Restrepo on 03-20-2025 MCV (RBC) [Entitic vol] 84.8 fL 81-99 [facility] Mean corpuscular hemoglobin (MCH) determinationOrdered By: Farrah Restrepo on 03-20-2025 MCH (RBC) [Entitic mass] 27.4 pg 27.0-32.0 Mean corpuscular hemoglobin concentration (MCHC) determinationOrdered By: Farrah Restrepo on 03-20-2025 MCHC (RBC) [Mass/Vol] 32.4 g/dL 32-36 [facility] Mean platelet volume determi nationOrdered By: Farrah Restrepo on 03-20-2025 Platelet mean volume (Bld) [Entitic vol] 11.9 fL 6.2-12.0 Monocyte percentageOrdered B y: Farrah Restrepo on 03-20-2025 Monocytes/100 WBC (Bld) 7.4 % 0-10 [facility] Neutrophil percentageOrdered By: Farrah Restrepo on 03-20-2025 Neutrophils/100 WBC (Bld) 70.3 % High 47-70 Nucleated red blood cell per centageOrdered By: Farrah Restrepo on 03-20-2025 Nucleated RBC/100 WBC (Bld) [Ratio] 0 % 0-5 Agent Telegrapher Office Visit Reporton 03-20-2025 Agent Telegrapher Office Visit Report 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 ??-???-??? (more content not included)... Normal Platelet countOrdered By: Seb Restrepo on 03-20-2025 Platelets (Bld) [#/Vol] 199 10*3/uL 150-450 RBC Auto (Bld) [#/Vol]Ordere d By: Farrah Restrepo on 03-20-2025 RBC (Bld) [#/Vol] 3.68 10*6/uL Low 4.2-5.4 [facility] White blood cell (WBC) count Ordered By: Farrah Restrepo on 03-20-2025 WBC (Bld) [#/Vol] 8.9 10*3/uL 4.4-11.0 [facility] Laboratory - Chemistry and C hemistry - challengeOrdered By: Farrah Restrepo on 03-08-2025 Glucose Ql (U) 100 g/dL Laboratory - UrinalysisOrder ed By: Farrah Restrepo on 03-08-2025 Protein Ql (U) Trace Agent Telegrapher Office Visit Reporton 03-08-2025 Agent Telegrapher Office Visit Report [facility] [address] [place] [address], [address] [place] [address] OFFICE VISIT Date of Service: 03/08/25 MR#: [id number] Acct: [id number] Name: EDEL GALLOWAY Rep #: [id number] : 1995 Provider: Dr. 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 -???- (more content not included)... Normal Laboratory - Chemistry and C hemistry - challengeOrdered By: Crissy Rodas on 02-24-2025 Glucose Ql (U) Negative Laboratory - UrinalysisOrder ed By: Crissy Rodas on 02-24-2025 Protein Ql (U) Negative Agent Telegrapher Office Visit Reporton 02-24-2025 Agent Telegrapher Office Visit Report [facility]'[address], [address] [place] [address] OFFICE VISIT Date of Service: 02/24/25 MR#: [id number] Acct: [id number] Name: EDEL GALLOWAY Rep #: [id number] : 1995 Provider: Dr. 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 Normal Laboratory - Chemistry and C hemistry - challengeOrdered By: Corina Daniel on 02-06-2025 Glucose Ql (U) Negative Laboratory - UrinalysisOrder ed By: Corina Daniel on 02-06-2025 Protein Ql (U) Negative Agent Telegrapher Office Visit Reporton 02-06-2025 Agent Telegrapher Office Visit Report [facility] [address], [address] [place] [address] OFFICE VISIT Date of Service: 02/06/25 MR#: [id number] Acct: [id number] Name: EDEL GALLOWAY Rep #: [id number] : 1995 Provider: BRAYAN Jj ams Age/Sex: 29/F Location: [facility] [place] Status: Signed Intake Vital Signs 12/28/24 14:53 01/23/25 10:17 02/06/25 11:11 Height 5 ft 4 in 5 ft 4 in 5 ft 4 in Weight: 162 lb 4 oz BMI 27.8 BP 112/75 Intake Visit Reasons: 29 wk ob Chief Complaint: 29wk OB Rewinder Operator Required: No Is patient in pain?: No [...] 1 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 Adrianna Dave Delivery Date: 09/24/23 Last Updated by: Macrina [...] 169 -???-???-???-???-???-? ??-???-???-???-???-??? -???- [place]- BARNEY is lester montaño (more content not included)... Normal Absolute lymphocyte countOrd ered By: Ida Ahumadas on 01-23-2025 Lymphocytes Auto (Unsp spec) [#/Vol] 1.13 10*3/uL 0.83-4.51 Absolute neutrophil countOrd ered By: Ida Ye on 01-23-2025 Neutrophils (Bld) [#/Vol] 7.4 10*3/uL 2.0-7.7 Automated lymphocyte count a s percentage of total leukocytesOrdered By: Ida Ye on 01-23-2025 Lymphocytes/100 WBC Auto (Unsp spec) 12.0 % Low 19-41 Basophil percentageOrdered B y: Ida Ye on 01-23-2025 Basophils/100 WBC (Bld) 0.3 % 0-1 [facility] CBC W/Diff, Automatedon 05- Absolute Lymph 1.13 X10 3/uL Normal 0.83-4.51 Comment on above: Performed By: #### L 509.8002, L501.0250, L3890.6006, L100.0100 #### [address] [place], [address] Absolute Neut 7.4 X10 3/uL Normal 2.0-7.7 Comment on above: Performed By: #### L 509.8002, L501.0250, L3890.6006, L100.0100 #### [address] [place], [address] Basophils/100 WBC (Bld) 0.3 % Normal 0-1 [facility] Comment on above: Performed By: #### L 509.8002, L501.0250, L3890.6006, L100.0100 #### [address] [place], [address] Eosinophils/100 WBC (Bld) 0.9 % Normal 0-5 Comment on above: Performed By: #### L 509.8002, L501.0250, L3890.6006, L100.0100 #### [address] [place], [address] Erythrocyte distribution width (RBC) [Ratio] 13.2 % Normal 11.6-14.6 Comment on above: Performed By: #### L 509.8002, L501.0250, L3890.6006, L100.0100 #### [address] [place], [address] Hematocrit (Bld) [Volume fraction] 30.2 % Low 37-47 Comment on above: Performed By: #### L 509.8002, L501.0250, L3890.6006, L100.0100 #### [address] [place], [address] Hemoglobin (Bld) [Mass/Vol] 10.3 g/dL Low 12.0-15.0 Comment on above: Performed By: #### L 509.8002, L501.0250, L3890.6006, L100.0100 #### [address] [place], [address] IG% 0.400 Normal 0.0-0.9 Comment on above: Result Comment: IG% - Immature Granulocytes (promyelocytes, myelocytes and metamyelocytes) > 1% indicates that a LEFT SHIFT is Present. Performed By: #### L 509.8002, L501.0250, L3890.6006, L100.0100 #### [address] [place], [address] Lymphocytes/100 WBC (Bld) 12.0 % Low 19-41 Comment on above: Performed By: #### L 509.8002, L501.0250, L3890.6006, L100.0100 #### [address] [place], [address] MCH (RBC) [Entitic mass] 29.8 pg Normal 27.0-32.0 Comment on above: Performed By: #### L 509.8002, L501.0250, L3890.6006, L100.0100 #### [address] [place], [address] MCHC (RBC) [Mass/Vol] 34.1 g/dL Normal 32-36 [facility] Comment on above: Performed By: #### L 509.8002, L501.0250, L3890.6006, L100.0100 #### [address] [place], [address] MCV (RBC) [Entitic vol] 87.3 fL Normal 81-99 [facility] Comment on above: Performed By: #### L 509.8002, L501.0250, L3890.6006, L100.0100 #### [address] [place], [address] Monocytes/100 WBC (Bld) 7.3 % Normal 0-10 [facility] Comment on above: Performed By: #### L 509.8002, L501.0250, L3890.6006, L100.0100 #### [address] [place], [address] Neutrophils/100 WBC (Bld) 79.1 % High 47-70 Comment on above: Performed By: #### L 509.8002, L501.0250, L3890.6006, L100.0100 #### [address] [place], [address] Nucleated RBC (Bld) [#/Vol] 0 10*3/uL Normal 0-5 Comment on above: Performed By: #### L 509.8002, L501.0250, L3890.6006, L100.0100 #### [address] [place], [address] Platelet mean volume (Bld) [Entitic vol] 11.5 fL Normal 6.2-12.0 Comment on above: Performed By: #### L 509.8002, L501.0250, L3890.6006, L100.0100 #### [address] [place], [address] Platelets (Bld) [#/Vol] 181 10*3/uL Normal 150-450 Comment on above: Performed By: #### L 509.8002, L501.0250, L3890.6006, L100.0100 #### [address] [place], [address] RBC (Bld) [#/Vol] 3.46 10*6/uL Low 4.2-5.4 [facility] Comment on above: Performed By: #### L 509.8002, L501.0250, L3890.6006, L100.0100 #### [address] [place], [address] RDW SD 42.0 fl Normal 35.1-43.9 Comment on above: Performed By: #### L 509.8002, L501.0250, L3890.6006, L100.0100 #### [address] [place], [address] WBC (Bld) [#/Vol] 9.4 10*3/uL Normal 4.4-11.0 [facility] Comment on above: Performed By: #### L 509.8002, L501.0250, L3890.6006, L100.0100 #### [address] [place], [address] Eosinophil percentageOrdered By: Ida Ye on 01-23-2025 Eosinophils/100 WBC (Bld) 0.9 % 0-5 Erythrocyte distribution wid th ratioOrdered By: Ida Ye on 01-23-2025 Erythrocyte distribution width (RBC) [Ratio] 13.2 % 11.6-14.6 Erythrocyte distribution wid th standard deviationOrdered By: Ida Ye on 01-23-2025 Erythrocyte distribution width (RBC) [Ratio] 42.0 fl 35.1-43.9 Glucose Challenge Gest 1H 50 renee 01-23-2025 GLU GEST 50g 1H 121 mg/dL Normal 70-140 Comment on above: Performed By: #### L 509.8002, L501.0250, L3890.6006, L100.0100 #### [address] [facility] [address] [place], [place], [address] Glucose measurement at 2 sophia rs post-dose gestational glucose tolerance testOrdered By: Ida Ye on 01-23-2025 Glucose [Mass/Vol] 121 mg/dL 70-140 [facility] HIVon 01-23-2025 HIV Non-Reactive Normal Nonreactive Comment on above: Result Comment: Non- Reactive Reactive Repeatedly reactive samples must be confirmed according to CDC recommended confirmatory algorithms. The subresults for either HIVAG or AHIV can be used as an aid in the selection of the confirmation algorithm for reactive samples. Send out specimens with Reactive results to [facility] for confirmation. Order the HIV antibody detection and differentiation: lc#[id number] Performed By: #### L 509.8002, L501.0250, L3890.6006, L100.0100 #### [address] [place], [place], [address] Hematocrit Auto (Bld) [Volum e fraction]Ordered By: Ida Ye on 01-23-2025 Hematocrit (Bld) [Volume fraction] 30.2 % Low 37-47 Hemoglobin measurementOrdere d By: Ida Ye on 01-23-2025 Hemoglobin (Bld) [Mass/Vol] 10.3 g/dL Low 12.0-15.0 Immature granulocytes/100 WB C Auto (Bld)Ordered By: Ida Ye on 01-23-2025 Immature granulocytes/100 WBC (Bld) 0.400 % 0.0-0.9 Comment on above: IG% - Immature Granu locytes (promyelocytes, myelocytes and metamyelocytes) > 1% indicates that a LEFT SHIFT is Present. Laboratory - Chemistry and C hemistry - challengeOrdered By: Corina Daniel on 01-23-2025 Glucose Ql (U) Negative Laboratory - UrinalysisOrder ed By: Corina Daniel on 01-23-2025 Protein Ql (U) Negative MCV (mean corpuscular volume ) determinationOrdered By: Ida Ye on 01-23-2025 MCV (RBC) [Entitic vol] 87.3 fL 81-99 [facility] Mean corpuscular hemoglobin (MCH) determinationOrdered By: Ida Ye on 01-23-2025 MCH (RBC) [Entitic mass] 29.8 pg 27.0-32.0 Mean corpuscular hemoglobin concentration (MCHC) determinationOrdered By: Ida Ye on 01-23-2025 MCHC (RBC) [Mass/Vol] 34.1 g/dL 32-36 [facility] Mean platelet volume determi nationOrdered By: Iad Ye on 01-23-2025 Platelet mean volume (Bld) [Entitic vol] 11.5 fL 6.2-12.0 Monocyte percentageOrdered B y: Ida Ye on 01-23-2025 Monocytes/100 WBC (Bld) 7.3 % 0-10 [facility] Neutrophil percentageOrdered By: Ida Ye on 01-23-2025 Neutrophils/100 WBC (Bld) 79.1 % High 47-70 No Panel InformationOrdered By: Ida Ye on 01-23-2025 HIV (1&2) Antibody Non-Reactive Nonreactive [facility] Comment on above: Non-ReactiveReactive Repeatedly reactive samples must be confirmed according to CDC recommended confirmatory algorithms. The subresults for either HIVAG or AHIV can be used as an aid in the selection of the confirmation algorithm for reactive samples.Send out specimens with Reactive results to [facility] for confirmation.Order the HIV antibody detection and differentiation: #[id number] Nucleated red blood cell per centageOrdered By: Ida Ye on 01-23-2025 Nucleated RBC/100 WBC (Bld) [Ratio] 0 % 0-5 Agent Telegrapher Office Visit Reporton 01-23-2025 Agent Telegrapher Office Visit Report [address], [address] [place] [address] OFFICE VISIT Date of Service: 01/23/25 MR#: [id number] Acct: [id number] Name: EDEL GALLOWAY Rep #: [id number] : 1995 Provider: BRAYAN Jj ams Age/Sex: 29/F Location: [facility] Status: Signed Intake Vital Signs 12/02/24 09:59 12/28/24 14:53 01/23/25 10:17 Height 5 ft 4 in 5 ft 4 in 5 ft 4 in Weight: 161 lb 8 oz BMI 27.7 BP 107/75 Intake Visit Reasons: 27wk ob/glucose Chief Complaint: 27wk OB Rewinder Operator Required: No Is patient in pain?: No [...] 1 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 Kimberly decli (more content not included)... Normal Platelet countOrdered By: Anil Ye on 01-23-2025 Platelets (Bld) [#/Vol] 181 10*3/uL 150-450 RBC Auto (Bld) [#/Vol]Ordere d By: Ida Ye on 01-23-2025 RBC (Bld) [#/Vol] 3.46 10*6/uL Low 4.2-5.4 [facility] Syphilis Antibodieson 2024 Syphilis Abs Non-Reactive Normal Nonreactive Comment on above: Performed By: #### L 509.8002, L501.0250, L3890.6006, L100.0100 #### [address] [place], [address] White blood cell (WBC) count Ordered By: Ida Ye on 01-23-2025 WBC (Bld) [#/Vol] 9.4 10*3/uL 4.4-11.0 [facility] Urine Cultureon 12-31-2024 URC Below infection leve l. Mixed Gram Positive Organisms [place] Count 1000-10,000 MIXC Mixed contaminants. Submit a new specimen if indicated. Normal Comment on above: Performed By: #### M 100.2200 #### [address] [place], [place], [address] Laboratory - Chemistry and C hemistry - challengeOrdered By: Farrah Restrepo on 12-28-2024 Bilirubin Ql (U) Negative Glucose Ql (U) Negative Ketones Ql (U) Large (80+) pH (U) 6.0 [pH] Specific gravity (U) [Rel density] 1.025 Urobilinogen (U) [Mass/Vol] 0.7314899 mg/dL Laboratory - Hematology and Cell countsOrdered By: Farrah Restrepo on 12-28-2024 Hemoglobin Ql (U) Negative Laboratory - Specimen inform ationOrdered By: Farrah Restrepo on 12-28-2024 Clarity (U) Cloudy Color (U) Yellow Laboratory - UrinalysisOrder ed By: Farrah Restrepo on 12-28-2024 Nitrite Ql (U) Negative Protein Ql (U) Negative No Panel InformationOrdered By: Farrah Restrepo on 12-28-2024 Urine Leukocytes Negatve Agent Telegrapher Office Visit Reporton 12-28-2024 Agent Telegrapher Office Visit Report [address], [address] [place] [address] OFFICE VISIT Date of Service: 12/28/24 MR#: [id number] Acct: [id number] Name: EDEL GALLOWAY Rep #: [id number] : 1995 Provider: SABINE casper Age/Sex: 29/F Location: [facility] Status: Signed Intake Vital Signs 11/02/24 14:27 12/02/24 09:59 12/28/24 14:53 12/28/24 14:53 Height 5 ft 4 in 5 ft 4 in 5 ft 4 in 5 ft 4 in Weight: 159 lb 2 oz BMI 27.3 BP 110/74 Intake Visit Reasons: 23 wk ob *POS UTI Rewinder Operator Required: No Is patient in pain?: No [...] 1 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 ??-???-??? (more content not included)... Normal Urine cultureOrdered By: Karissa Restrepo on 12-28-2024 Bacteria identified Cx Nom (U) Positive Abnormal Laboratory - Chemistry and C hemistry - challengeOrdered By: Ida Ye on 12-02-2024 Glucose Ql (U) Negative Laboratory - UrinalysisOrder ed By: Ida Ye on 12-02-2024 Protein Ql (U) Negative Agent Telegrapher Office Visit Reporton 12-02-2024 Agent Telegrapher Office Visit Report [facility] [address], [address] [place] [address] OFFICE VISIT Date of Service: 12/02/24 MR#: [id number] Acct: [id number] Name: EDEL GALLOWAY Rep #: [id number] : 1995 Provider: SABINE casper Age/Sex: 29/F Location: [facility] [place] Status: Signed Intake Vital Signs 10/05/24 12:36 11/18/24 18:02 12/02/24 09:59 Height 5 ft 4 in 5 ft 4 in 5 ft 4 in Weight: 160 lb 2 oz BMI 27.4 BP 118/70 Intake Visit Reasons: 19 wk ob Chief Complaint: 19 Week OB Rewinder Operator Required: No Is patient in pain?: No [...] 1 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 ??-???-???-???-?? (more content not included)... Normal Urine Cultureon 11-20-2024 URC Below infection levroni l. Mixed Gram Positive Organisms [place] Count 1000-10,000 MIXC Mixed contaminants. Submit a new specimen if indicated. Normal Comment on above: Performed By: #### L 400.0001, M100.678, M100.2200 #### Laboratory [facility] [place], [address] CNPCourt 11-19-2024 CNPN Telephone ([facility]) EDEL GALLOWAY ([id number]) 1995 F Date Time Provider Department 11/19/24 WENCESLAO SHORT JR [facility] During your visit today, we recorded the following information about you: Wenceslao Short Jr., GABRIELA.DENTAL HYGIENE ADMINISTRATIVE ASSISTANT 11/19/2024 9:03 AM Signed Patient is positive for influenza A. She was prescribed Tamiflu by her skin care therapist. She could use wxfc-ktw-wjdxcav medications that are appropriate during for her other symptoms. Please inform her of the positive test she is negative for COVID, influenza B and RSV. Allergies As of Date: 11/19/2024 Noted Allergy Reaction AZITHROMYCIN 11/18/2024 2 - Rash Date Reviewed: 11/18/2024 Reviewed by: Wenceslao Short Jr., POLISH MAKER.DENTAL HYGIENE ADMINISTRATIVE ASSISTANT - Fully Assessed Prescriptions as of 11/19/2024 [...] Encounter Status:Closed by WENCESLAO SHORT on 11/19/24 [facility] Bilirubin Test strip Ql (U)O rdered By: Alfonso Sylvester on 11-18-2024 Bilirubin Ql (U) Negative Negative CNOVon 11-18-2024 CNOV Office Visit ([facility] ) EDEL GALLOWAY ([id number]) 1995 F Date Time Provider Department 11/18/24 8:30 AM [facility] During your visit today, we recorded the following information about you: Temperature Pulse Respiration Blood pressure 97.4 degrees 110/minute 18/minute 106/71 Weight 70.9 kg Wenceslao Short Jr., POLISH MAKER.DENTAL HYGIENE ADMINISTRATIVE ASSISTANT 11/18/2024 9:13 AM Signed [facility] Subjective Edel Galloway [...] She has been prescribed Zofran by her WILDLIFE CONSERVATION PROFESSOR but only has 1 tablet left. Patient states she has been exposed to influenza A from a family member. She is currently taking Tamiflu prescribed by her WILDLIFE CONSERVATION PROFESSOR. The history is provided by the patient. [...] and even though she has contacted her WILDLIFE CONSERVATION PROFESSOR for refill no prescription has been sent [...] tab mid-day MDM Procedures Wenceslao Short Jr., DIANN 11/18/2024 8:56 AM Signed Take medications as prescribed. Follow-up with PCP or return if symptoms do not resolve visit Urgent Care. Allergies As of Date: 11/18/2024 Noted Allergy Reaction AZITHROMYCIN 11/18/2024 2 - Rash Date Reviewed: 11/18/2024 Reviewed by: Wenceslao Short Jr., GABRIELA.DENTAL HYGIENE ADMINISTRATIVE ASSISTANT - Fully Assessed Reason for Visit: Cough [28] Cmt: Cough, sinus pressure, N/V all x 2 days Primary Visit Diagnosis:Congestion of nasal sinus [R09.81] Other Visit Diagnosis:Nausea and vomiting, unspecified vomiting type [R11.2] Order(s):COVID AND INFLUENZA A/B AND RSV PCR, ROUTINE [SQCVFLRS] Order #: [id number]. #:[id number] doxylamine-pyridoxine, vit B6, 10-10 mg TbECTake 2 tabs at night. If symptoms persist after 2 days add one tab in the morning. If symptoms still persist after 4 days add a tab mid-dayDisp: 12 tabletRfl: 0 amoxicillin-clavulanat e potassium (AUGMENTIN) 875-125 mg per tabletTake 1 tablet by mouth two times a day for 5 da (more content not included)... Normal [facility] Emergency Department Summary on 11-18-[address] [facility] Medical Records Department [address] [place] [address] Emergency Department Summary 11/18/24 MR#: [id number] Acct: [id number] Name: EDEL GALLOWAY Rep #: [id number] : 1995 29 From: Alfonso Sylvester DO [...] that she was prescribed Zofran by her WILDLIFE CONSERVATION PROFESSOR and states that she has been taking [...] bleeding. States that her first was uncomplicated. 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 Normal Epithelial cells.squamous LM Ql (Urine sed)Ordered By: Alfonso Sylvester on 11-18-2024 Epithelial cells.squamous LM.HPF (Urine sed) [#/Area] 5 /[HPF] 5-10 Glucose Ql (U)Ordered By: Paul Sylvester on 11-18-2024 Urine Glucose (UA) Normal mg/dl Normal [facility] Influenza virus A and B and SARS-CoV-2 (COVID-19) and Respiratory syncytial virus RNAOrdered By: Alfonso Sylvester on 11-18-2024 SARS-CoV-2 (COVID-19) RNA ASIF+probe Ql (Unsp spec) Influenzae A Abnormal Ketones Test strip Ql (U)Ord ered By: Alfonso Sylvester on 11-18-2024 Ketones Ql (U) 150 mg/dl Abnormal Negative Comment on above: CRITICAL VALUE *H M100.678on [...] Negative RSV PCR Negative INFLUENZAE A Normal Comment on above: Performed By: #### L 400.0001, M100.678, M100.2200 #### Laboratory [address] [place] [address], [id number] Microscopic analysis of urin e for red blood cells (RBC)Ordered By: Alfonso Sylvester on 11-18-2024 Microscopic analysis of urine for red blood cells (RBC) 0-5 SEEN /hpf 0-5 Urine RBC 0-5 SEEN /hpf 0-5 Mucus LM Ql (Urine sed)Order ed By: Alfonso Sylvester on 11-18-2024 Mucus Ql (Urine sed) 0 SEEN /hpf [facility] Nitrite Test strip Ql (U)Ord ered By: Alfonso Sylvester on 11-18-2024 Nitrite Ql (U) Negative Negative Protein Test strip Ql (U)Ord ered By: Alfonso Sylvester on 11-18-2024 Protein Ql (U) 15 mg/dl High Negative Squamous epithelial cells de tection in urine sediment by light microscopyOrdered By: Alfonso Sylvester on 11-18-2024 Epithelial cells.squamous LM Ql (Urine sed) 5-10 SEEN /hpf 5-10 Urinalysis, Completeon 11-18 BACTERIA 1+ /hpf Normal None Seen Comment on above: Order Comment: CRITI VASYL VALUE CALLED TO [facility] 11/18/24 2205 Amy Lollo. RESULTS READ BACK BY SAME. GLYCERINE PLANT OPERATOR TO SPECIFY Performed By: #### L 400.0001, M100.678, M100.2200 #### Laboratory [address] [place], [address] EPI,SQUAMOUS 5-10 SEEN Normal 5-10 Comment on above: Order Comment: CRITI VASYL VALUE CALLED TO [facility] 11/18/24 2205 Amy Lollo. RESULTS READ BACK BY SAME. GLYCERINE PLANT OPERATOR TO SPECIFY Performed By: #### L 400.0001, M100.678, M100.2200 #### Laboratory [address] [place], [address] RBC 0-5 SEEN Normal 0-5 Comment on above: Order Comment: CRITI VASYL VALUE CALLED TO [facility] 11/18/24 2205 Amy Lollo. RESULTS READ BACK BY SAME. GLYCERINE PLANT OPERATOR TO SPECIFY Performed By: #### L 400.0001, M100.678, M100.2200 #### Laboratory [address] [place], [address] WBC 25-50 SEEN Normal 0-5 Comment on above: Order Comment: CRITI VASYL VALUE CALLED TO [facility] 11/18/24 2205 Amy Lollo. RESULTS READ BACK BY SAME. GLYCERINE PLANT OPERATOR TO SPECIFY Performed By: #### L 400.0001, M100.678, M100.2200 #### Laboratory [address] [place], [address] Mucus Ql (Urine sed) 0 SEEN Normal [facility] Comment on above: Order Comment: CRITI VASYL VALUE CALLED TO [facility] 11/18/24 2205 Amy Lollo. RESULTS READ BACK BY SAME. GLYCERINE PLANT OPERATOR TO SPECIFY Performed By: #### L 400.0001, M100.678, M100.2200 #### Laboratory [address] [place], [address] Urine blood detectionOrdered By: Alfonso Sylvester on 11-18-2024 Urine Occult Blood Negative Negative [facility] Urine clarityOrdered By: Beatrice Sylvester on 11-18-2024 Clarity (U) Sl. Cloudy Clear Urine color determinationOrd ered By: Alfonso Sylvester on 11-18-2024 Color (U) Yellow Yellow Urine cultureOrdered By: Beatrice Sylvester on 11-18-2024 Bacteria identified Cx Nom (U) Positive Abnormal Urine glucose detectionOrder ed By: Alfonso Sylvester on 11-18-2024 Glucose Ql (U) Normal mg/dl Normal Urine leukocyte esterase det ection by dipstickOrdered By: Alfonso Sylvester on 11-18-2024 Leukocyte esterase Test strip Ql (U) 500 /ul High Negative Urine pHOrdered By: Alfonso quintanilla on 11-18-2024 pH (U) 6.0 [pH] 5.0 - 8.0 Urine sediment bacteria coun t by microscopy (number/high power field)Ordered By: Alfonso Sylvester on 11-18-2024 Bacteria LM.HPF (Urine sed) [#/Area] 1 /[HPF] None Seen Urine specific gravity measu rementOrdered By: Alfonso Sylvester on 11-18-2024 Specific gravity (U) [Rel density] 1.020 1.002-1.030 Urine urobilinogen measureme ntOrdered By: Alfonso Sylvester on 11-18-2024 Urobilinogen Ql (U) Normal mg/dl Normal [facility] Urobilinogen Ql (U)Ordered B y: Alfonso Sylvester on 11-18-2024 Urine Urobilinogen Normal mg/dl Normal [facility] White blood cell countOrdere d By: Alfonso Sylvester on 11-18-2024 Urine WBC 25-50 SEEN /hpf 0-5 White blood cell count 25-50 SEEN /hpf 0-5 Laboratory - Chemistry and C hemistry - challengeOrdered By: Crissy Rodas on 11-02-2024 Glucose Ql (U) Negative Laboratory - UrinalysisOrder ed By: Crissy Rodas on 11-02-2024 Protein Ql (U) Negative Agent Telegrapher Office Visit Reporton 11-02-2024 Agent Telegrapher Office Visit Report [facility] [address], [address] [place] [address] OFFICE VISIT Date of Service: 11/02/24 MR#: [id number] Acct: [id number] Name: EDEL GALLOWAY Rep #: [id number] : 1995 Provider: Dr. 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 wants to do anatomy scan in [place]. 11/02/24 -???-???-???-???-???-? ??-???-???-???-???-?? (more content not included)... Normal Absolute lymphocyte countOrd ered By: Farrah Restrepo on 10-13-2024 Lymphocytes Auto (Unsp spec) [#/Vol] 1.67 10*3/uL 0.83-4.51 Absolute neutrophil countOrd ered By: Farrah Restrepo on 10-13-2024 Neutrophils (Bld) [#/Vol] 6.4 10*3/uL 2.0-7.7 Automated lymphocyte count a s percentage of total leukocytesOrdered By: Farrah Restrepo on 10-13-2024 Lymphocytes/100 WBC Auto (Unsp spec) 18.7 % Low 19-41 Basophil percentageOrdered B y: Farrah Restrepo on 10-13-2024 Basophils/100 WBC (Bld) 0.4 % 0-1 [facility] CBC W/Diff, Automatedon Absolute Lymph 1.67 X10 3/uL Normal 0.83-4.51 Comment on above: Performed By: #### L 3890.6100, L509.4005, L3890.6300, L100.0100, L3890.6005, BTS, L509.8000 #### [id number] [place], [address] Absolute Neut 6.4 X10 3/uL Normal 2.0-7.7 Comment on above: Performed By: #### L 3890.6100, L509.4005, L3890.6300, L100.0100, L3890.6005, BTS, L509.8000 #### [id number] [place], [address] Basophils/100 WBC (Bld) 0.4 % Normal 0-1 [facility] Comment on above: Performed By: #### L 3890.6100, L509.4005, L3890.6300, L100.0100, L3890.6005, BTS, L509.8000 #### [address] [place], [address] Eosinophils/100 WBC (Bld) 1.0 % Normal 0-5 Comment on above: Performed By: #### L 3890.6100, L509.4005, L3890.6300, L100.0100, L3890.6005, BTS, L509.8000 #### [address] [place], [address] Erythrocyte distribution width (RBC) [Ratio] 12.9 % Normal 11.6-14.6 Comment on above: Performed By: #### L 3890.6100, L509.4005, L3890.6300, L100.0100, L3890.6005, BTS, L509.8000 #### [address] [place], [address] Hematocrit (Bld) [Volume fraction] 37.8 % Normal 37-47 Comment on above: Performed By: #### L 3890.6100, L509.4005, L3890.6300, L100.0100, L3890.6005, BTS, L509.8000 #### [id number] [place], [address] Hemoglobin (Bld) [Mass/Vol] 12.9 g/dL Normal 12.0-15.0 Comment on above: Performed By: #### L 3890.6100, L509.4005, L3890.6300, L100.0100, L3890.6005, BTS, L509.8000 #### [id number] [place], [address] IG% 0.300 Normal 0.0-0.9 Comment on above: Result Comment: IG% - Immature Granulocytes (promyelocytes, myelocytes and metamyelocytes) > 1% indicates that a LEFT SHIFT is Present. Performed By: #### L 3890.6100, L509.4005, L3890.6300, L100.0100, L3890.6005, BTS, L509.8000 #### [id number] [place], [address] Lymphocytes/100 WBC (Bld) 18.7 % Low 19-41 Comment on above: Performed By: #### L 3890.6100, L509.4005, L3890.6300, L100.0100, L3890.6005, BTS, L509.8000 #### [address] [place], [address] MCH (RBC) [Entitic mass] 28.9 pg Normal 27.0-32.0 Comment on above: Performed By: #### L 3890.6100, L509.4005, L3890.6300, L100.0100, L3890.6005, BTS, L509.8000 #### [address] [place], [address] MCHC (RBC) [Mass/Vol] 34.1 g/dL Normal 32-36 [facility] Comment on above: Performed By: #### L 3890.6100, L509.4005, L3890.6300, L100.0100, L3890.6005, BTS, L509.8000 #### [address] [place], [address] MCV (RBC) [Entitic vol] 84.8 fL Normal 81-99 [facility] Comment on above: Performed By: #### L 3890.6100, L509.4005, L3890.6300, L100.0100, L3890.6005, BTS, L509.8000 #### [address] [place], [address] Monocytes/100 WBC (Bld) 7.6 % Normal 0-10 [facility] Comment on above: Performed By: #### L 3890.6100, L509.4005, L3890.6300, L100.0100, L3890.6005, BTS, L509.8000 #### [address] [place], [address] Neutrophils/100 WBC (Bld) 72.0 % High 47-70 Comment on above: Performed By: #### L 3890.6100, L509.4005, L3890.6300, L100.0100, L3890.6005, BTS, L509.8000 #### [address] [place], [address] Nucleated RBC (Bld) [#/Vol] 0 10*3/uL Normal 0-5 Comment on above: Performed By: #### L 3890.6100, L509.4005, L3890.6300, L100.0100, L3890.6005, BTS, L509.8000 #### [address] [place], [address] Platelet mean volume (Bld) [Entitic vol] 10.8 fL Normal 6.2-12.0 Comment on above: Performed By: #### L 3890.6100, L509.4005, L3890.6300, L100.0100, L3890.6005, BTS, L509.8000 #### [address] [place], [address] Platelets (Bld) [#/Vol] 257 10*3/uL Normal 150-450 Comment on above: Performed By: #### L 3890.6100, L509.4005, L3890.6300, L100.0100, L3890.6005, BTS, L509.8000 #### [address] [place], [address] RBC (Bld) [#/Vol] 4.46 10*6/uL Normal 4.2-5.4 [facility] Comment on above: Performed By: #### L 3890.6100, L509.4005, L3890.6300, L100.0100, L3890.6005, BTS, L509.8000 #### [id number] [place], [address] RDW SD 39.4 fl Normal 35.1-43.9 Comment on above: Performed By: #### L 3890.6100, L509.4005, L3890.6300, L100.0100, L3890.6005, BTS, L509.8000 #### [address] [place], [address] WBC (Bld) [#/Vol] 8.9 10*3/uL Normal 4.4-11.0 [facility] Comment on above: Performed By: #### L 3890.6100, L509.4005, L3890.6300, L100.0100, L3890.6005, BTS, L509.8000 #### [address] [place], [address] Eosinophil percentageOrdered By: Farrah Restrepo on 10-13-2024 Eosinophils/100 WBC (Bld) 1.0 % 0-5 Erythrocyte distribution wid th ratioOrdered By: Farrah Restrepo on 10-13-2024 Erythrocyte distribution width (RBC) [Ratio] 12.9 % 11.6-14.6 Erythrocyte distribution wid th standard deviationOrdered By: Farrah Restrepo on 10-13-2024 Erythrocyte distribution width (RBC) [Entitic vol] 39.4 fL 35.1-43.9 Erythrocyte distribution width (RBC) [Ratio] 39.4 fl 35.1-43.9 HIV - WCHon 10-13-2024 HIV Non-Reactive Normal Nonreactive Comment on above: Order Comment: Reaso n for Exam: Performed By: #### L 3890.6100, L509.4005, L3890.6300, L100.0100, L3890.6005, BTS, L509.8000 #### [address] [place], [place], [address] HIV 1 and HIV-2 antibody ass ay with HIV-1 p24 antigen detectionOrdered By: Farrah Restrepo on 10-13-2024 HIV 1+2 Ab+HIV1 p24 Ag IA Ql Non-Reactive Nonreactive HIV 1+2 Ab+HIV1 p24 Ag IA Ql Ordered By: Farrah Restrepo on 10-13-2024 HIV (1&2) Antibody Non-Reactive Nonreactive [facility] Hematocrit Auto (Bld) [Volum e fraction]Ordered By: Farrah Restrepo on 10-13-2024 Hematocrit (Bld) [Volume fraction] 37.8 % 37-47 Hemoglobin measurementOrdere d By: Farrah Restrepo on 10-13-2024 Hemoglobin (Bld) [Mass/Vol] 12.9 g/dL 12.0-15.0 Hepatitis B Surface Antigeno n 10-13-2024 HEP B Surf Ag Non-Reactive [facility]: Order Comment: Reaso n for Exam: Performed By: #### L 3890.6100, L509.4005, L3890.6300, L100.0100, L3890.6005, BTS, L509.8000 #### [id number] [place], [place], [address] Hepatitis B surface antigen detectionOrdered By: Farrah Restrepo on 10-13-2024 Hepatitis B Surface Antigen Non-Reactive Nonreactive Hepatitis C Antibodyon 10-13 Hepatitis C AB Non-Reactive Normal [facility] Comment on above: Order Comment: Reaso n for Exam: Result Comment: Non Reactive: < 0.8 Equivocal: >/= 0.8 to < 1.0 Reactive: >/= 1.0 The CDC requires that a reactive/equivocal HCV antibody result be sent out for confirmation. HCV Quant by PCR testing. Performed By: #### L 3890.6100, L509.4005, L3890.6300, L100.0100, L3890.6005, BTS, L509.8000 #### [id number] [place], [place], [id number] Hepatitis C virus antibody a ssayOrdered By: Farrah Restrepo on 10-13-2024 Hepatitis C Antibody Non-Reactive Nonreactive [facility] Comment on above: Non Reactive: < 0.8 Equivocal: >/= 0.8 to < 1.0 Reactive: >/= 1.0The CDC requires that a reactive/equivocal HCV antibody result be sent out for confirmation. HCV Quant by PCR testing. Immature granulocytes/100 WB C Auto (Bld)Ordered By: Farrah Restrepo on 10-13-2024 Immature granulocytes/100 WBC (Bld) 0.300 % 0.0-0.9 Comment on above: IG% - Immature Granu locytes (promyelocytes, myelocytes and metamyelocytes) > 1% indicates that a LEFT SHIFT is Present. L509.8000on 10-13-2024 Syphilis Abs Non-Reactive Normal Comment on above: Order Comment: Reaso n for Exam: Performed By: #### L 3890.6100, L509.4005, L3890.6300, L100.0100, L3890.6005, BTS, L509.8000 #### [id number] [place], [place], [id number] Lymphocytes Auto (Unsp spec) [#/Vol]Ordered By: Farrah Restrepo on 10-13-2024 Lymphocytes (Bld) [#/Vol] 1.67 10*3/uL 0.83-4.51 Lymphocytes/100 WBC Auto (Un sp spec)Ordered By: Farrah Restrepo on 10-13-2024 Lymphocytes/100 WBC (Bld) 18.7 % Low 19-41 MCV (mean corpuscular volume ) determinationOrdered By: Farrah Restrepo on 10-13-2024 MCV (RBC) [Entitic vol] 84.8 fL 81-99 [facility] Mean corpuscular hemoglobin (MCH) determinationOrdered By: Farrah Restrepo on 10-13-2024 MCH (RBC) [Entitic mass] 28.9 pg 27.0-32.0 Mean corpuscular hemoglobin concentration (MCHC) determinationOrdered By: Farrah Restrepo on 10-13-2024 MCHC (RBC) [Mass/Vol] 34.1 g/dL 32-36 [facility] Mean platelet volume determi nationOrdered By: Farrah Restrepo on 10-13-2024 Platelet mean volume (Bld) [Entitic vol] 10.8 fL 6.2-12.0 Monocyte percentageOrdered B y: Farrah Restrepo on 10-13-2024 Monocytes/100 WBC (Bld) 7.6 % 0-10 [facility] Neutrophil percentageOrdered By: Farrah Restrepo on 10-13-2024 Neutrophils/100 WBC (Bld) 72.0 % High 47-70 Nucleated red blood cell per centageOrdered By: Farrah Restrepo on 10-13-2024 Nucleated RBC/100 WBC (Bld) [Ratio] 0 % 0-5 Platelet countOrdered By: Seb Restrepo on 10-13-2024 Platelets (Bld) [#/Vol] 257 10*3/uL 150-450 RBC Auto (Bld) [#/Vol]Ordere d By: Farrah Restrepo on 10-13-2024 RBC (Bld) [#/Vol] 4.46 10*6/uL 4.2-5.4 [facility] Rubella IgGon 10-13-2024 Rubella IgG Reactive Normal Nonreactive Comment on above: Order Comment: Reaso n for Exam: Result Comment: Anti body Results Interpretation of Immune Status Non Reactive Presumed Non-Immune Equivocal Equivocal Reactive Presumed Immune Performed By: #### L 3890.6100, L509.4005, L3890.6300, L100.0100, L3890.6005, BTS, L509.8000 #### [id number] [place], [address] Rubella immune status IgGOrd ered By: Farrah Restrepo on 10-13-2024 Rubella IgG Antibody Reactive Nonreactive [facility] Comment on above: Antibody Results Int erpretation of Immune Status Non Reactive Presumed Non-Immune Equivocal Equivocal Reactive Presumed Immune Serum Treponema species anti body detectionOrdered By: Farrah Restrepo on 10-13-2024 Treponema sp Ab Ql (S) Non-Reactive Treponema sp Ab Ql (S)Ordere d By: Farrah Restrepo on 10-13-2024 Syphilis Total Antibody Non-Reactive Type AND Screenon 10-13-2024 ABO and Rh group Nom (Bld) Blood group O Rh(D) positive Normal Comment on above: Order Comment: PN Performed By: #### L 3890.6100, L509.4005, L3890.6300, L100.0100, L3890.6005, BTS, L509.8000 #### [id number] [place], [address] White blood cell (WBC) count Ordered By: Farrah Restrepo on 10-13-2024 WBC (Bld) [#/Vol] 8.9 10*3/uL 4.4-11.0 [facility] Chlamydia/GC ASIF aptimaon CHLAMY,NUC ACID Negative Normal Negative Comment on above: Performed By: #### L 7000.1800, M10 #### Laboratory [address] [place], [address] GC BY NUC ACID Negative Normal Negative Comment on above: Result Comment: Perf ormed at: =G - [facility] [address] [id number] Mechanic Sound Technician: Jennifer Villareal MD, Phone: [phone] Performed By: #### L 7000.1800, M100.2200 #### Laboratory [address] [place], [address] Urine Cultureon 10-06-2024 URC Culture exhibits no growth. Normal Comment on above: Performed By: #### L 7000.1800, M100.2200 #### Laboratory [address] [place], [address] C. trachomatis rRNA ASIF+prob e Ql (Unsp spec)Ordered By: Farrah Restrepo on 10-05-2024 Chlamydia DNA (ASIF) Negative Negative [facility] Chlamydia trachomatis rRNA d etection by probe and target amplification methodOrdered By: Farrah Restrepo on 10-05-2024 C. trachomatis rRNA ASIF+probe Ql (Unsp spec) Negative Negative Neisseria gonorrhoeae nuclei c acid detection by amplified probe techniqueOrdered By: Farrah Restrepo on 10-05-2024 N. gonorrhoeae DNA ASIF+probe Ql (Unsp spec) Negative Negative Comment on above: Performed at: =[address] [id number] Director: Jennifer Villareal MD, Phone: [phone] Agent Telegrapher Office Visit Reporton 10-05-2024 Agent Telegrapher Office Visit Report [facility] [address], [address] [place] [address] OFFICE VISIT Date of Service: 10/05/24 MR#: [id number] Acct: [id number] Name: EDEL GALLOWAY CHUY Rep #: [id number] : 1995 Provider: Dr. 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 Adrianna Acosta Delivery Date: 09/24/23 Last Updated by: Macrina Schwab COVID, vanishing twin, 2nd degree laceration HPI New [...] NIPT. wants to do anatomy scan in [place]. Menstrual History Last Menst (more content not included)... Normal Urine cultureOrdered By: Karissa Restrepo on 10-05-2024 Bacteria identified Cx Nom (U) Culture exhibits no growth. Absolute lymphocyte countOrd ered By: Crissy Rodas on 09-24-2023 Lymphocytes Auto (Unsp spec) [#/Vol] 1.60 10*3/uL 0.83-4.51 Automated lymphocyte count a s percentage of total leukocytesOrdered By: Crissy Rodas on 09-24-2023 Lymphocytes/100 WBC Auto (Unsp spec) 10.3 % 19-41 Basophil percentageOrdered B y: Crissy Rodas on 09-24-2023 Basophils/100 WBC (Bld) 0.3 % 0-1 [facility] Eosinophils/100 WBC (Bld) 0.2 % 0-5 Hemoglobin (Bld) [Mass/Vol] 11.4 g/dL 12.0-15.0 Monocytes/100 WBC (Bld) 7.4 % 0-10 [facility] Neutrophils (Bld) [#/Vol] 12.7 10*3/uL 2.0-7.7 Neutrophils/100 WBC (Bld) 81.2 % 47-70 WBC (Bld) [#/Vol] 15.6 10*3/uL 4.4-11.0 [facility] Blood manual differential co mment interpretation (narrative result)Ordered By: Crissy Rodas on 09-24-2023 Manual differential comment Mauro (Bld) [Interp] SCANNED Determination of erythrocyte mean corpuscular volume (MCV)Ordered By: Crissy Rodas on 09-24-2023 MCV (RBC) [Entitic vol] 87.6 fL 81-99 [facility] Erythrocyte distribution wid th ratioOrdered By: Crissy Rodas on 09-24-2023 Erythrocyte distribution width (RBC) [Ratio] 12.6 % 11.6-14.6 Erythrocyte distribution wid th standard deviationOrdered By: Crissy Rodas on 09-24-2023 Erythrocyte distribution width (RBC) [Entitic vol] 40.6 fL 35.1-43.9 Hematocrit Auto (Bld) [Volum e fraction]Ordered By: Crissy Rodas on 09-24-2023 Hematocrit (Bld) [Volume fraction] 34.7 % 37-47 Immature granulocytes/100 WB C Auto (Bld)Ordered By: Crissy Rodas on 09-24-2023 Immature granulocytes/100 WBC (Bld) 0.600 % 0.0-0.9 Comment on above: IG% - Immature Granu locytes (promyelocytes, myelocytes and metamyelocytes) > 1% indicates that a LEFT SHIFT is Present. Laboratory - Hematology and Cell countsOrdered By: Crissy Rodas on 09-24-2023 MCH (RBC) [Entitic mass] 28.8 pg 27.0-32.0 MCHC (RBC) [Mass/Vol] 32.9 g/dL 32-36 [facility] Nucleated RBC/100 WBC (Bld) [Ratio] 0 % 0-5 Platelets (Bld) [#/Vol] 168 10*3/uL 150-450 Platelet mean volume Jayy-Ec ker (Bld) [Entitic vol]Ordered By: Crissy Rodas on 09-24-2023 Platelet mean volume (Bld) [Entitic vol] 13.2 fL 6.2-12.0 RBC Auto (Bld) [#/Vol]Ordere d By: Crissy Rodas on 09-24-2023 RBC (Bld) [#/Vol] 3.96 10*6/uL 4.2-5.4 [facility] Serum Treponema species anti body detectionOrdered By: Crissy Rodas on 09-24-2023 Treponema sp Ab Ql (S) Non-Reactive Laboratory - Chemistry and C hemistry - challengeon 09-18-2023 Glucose Ql (U) Negative Laboratory - Urinalysison Protein Ql (U) Negative Laboratory - Chemistry and C hemistry - challengeon 09-10-2023 Glucose Ql (U) Negative Laboratory - Urinalysison Protein Ql (U) Negative Laboratory - Chemistry and C hemistry - challengeon 09-02-2023 Glucose Ql (U) Negative Laboratory - Urinalysison Protein Ql (U) Negative No Panel InformationOrdered By: Tere Osuna on 09-02-2023 Group B Streptococcus Culture Group B Beta Streptococcus is not isolated. Laboratory - Chemistry and C hemistry - challengeon 08-26-2023 Glucose Ql (U) Negative Laboratory - Urinalysison Protein Ql (U) Negative Laboratory - Chemistry and C hemistry - challengeon 08-10-2023 Glucose Ql (U) Negative Laboratory - Urinalysison Protein Ql (U) Negative Laboratory - Chemistry and C hemistry - challengeon 07-23-2023 Glucose Ql (U) Negative Laboratory - Urinalysison Protein Ql (U) Negative Quantitative serum or plasma 3 hour gestational glucose tolerance panelOrdered By: Tere Osuna on 07-20-2023 Glucose tolerance 3 hours gestational panel See comment Comment on above: FASTING 90 Col: 07/08 [...] - challengeon 07-08-2023 Glucose Ql (U) Negative Laboratory - Urinalysison Protein Ql (U) Negative Absolute lymphocyte countOrd ered By: Tere Osuna on 07-04-2023 Lymphocytes Auto (Unsp spec) [#/Vol] 1.46 10*3/uL 0.83-4.51 Basophil percentageOrdered B y: Tere Osuna on 07-04-2023 Basophils/100 WBC (Bld) 0.4 % 0-1 [facility] Eosinophils/100 WBC (Bld) 0.8 % 0-5 Neutrophils (Bld) [#/Vol] 11.7 10*3/uL 2.0-7.7 Neutrophils/100 WBC (Bld) 83.0 % 47-70 WBC (Bld) [#/Vol] 14.1 10*3/uL 4.4-11.0 [facility] Blood erythrocytes count (nu mber/volume)Ordered By: Tere [place] on 07-04-2023 RBC (Bld) [#/Vol] 3.78 10*6/uL 4.2-5.4 [facility] Blood hemoglobin measurement (mass/volume)Ordered By: Tere [place] on 07-04-2023 Hemoglobin (Bld) [Mass/Vol] 11.5 g/dL 12.0-15.0 Blood lymphocytes/100 leukoc ytesOrdered By: Tere [place] on 07-04-2023 Lymphocytes/100 WBC (Bld) 10.4 % 19-41 Blood monocytes/100 leukocyt esOrdered By: Tere [place] on 07-04-2023 Monocytes/100 WBC (Bld) 4.8 % 0-10 [facility] Blood platelet mean volumeOr dered By: Tere [place] on 07-04-2023 Platelet mean volume (Bld) [Entitic vol] 11.0 fL 6.2-12.0 Determination of erythrocyte mean corpuscular volume (MCV)Ordered By: Tere [place] on 07-04-2023 MCV (RBC) [Entitic vol] 91.5 fL 81-99 [facility] Gestational diabetes screen 1-hour screen with 50g oral glucose loadOrdered By: Tere Osuna on 07-04-2023 Glucose 1 Hr post 50 g glucose PO [Mass/Vol] 161 mg/dL 70-140 HIV 1 and HIV-2 antibody ass ay with HIV-1 p24 antigen detectionOrdered By: Tere Osuna on 07-04-2023 HIV 1+2 Ab+HIV1 p24 Ag IA Ql Non-Reactive Nonreactive Hematocrit Auto (Bld) [Volum e fraction]Ordered By: Tere Osuna on 07-04-2023 Hematocrit (Bld) [Volume fraction] 34.6 % 37-47 Laboratory - Hematology and Cell countsOrdered By: Tere Osuna on 07-04-2023 Erythrocyte distribution width (RBC) [Entitic vol] 41.9 fL 35.1-43.9 Erythrocyte distribution width (RBC) [Ratio] 12.6 % 11.6-14.6 Immature granulocytes/100 WBC (Bld) 0.600 % 0.0-0.9 Comment on above: IG% - Immature Granu locytes (promyelocytes, myelocytes and metamyelocytes) > 1% indicates that a LEFT SHIFT is Present. MCH (RBC) [Entitic mass] 30.4 pg 27.0-32.0 Nucleated RBC/100 WBC (Bld) [Ratio] 0 % 0-5 MCHC Auto (RBC) [Mass/Vol]Or dered By: Tere Osuna on 07-04-2023 MCHC (RBC) [Mass/Vol] 33.2 g/dL 32-36 [facility] Platelets bldOrdered By: Judith Osuna on 07-04-2023 Platelets (Bld) [#/Vol] 207 10*3/uL 150-450 Serum Treponema species anti body detectionOrdered By: Tere Osuna on 07-04-2023 Treponema sp Ab Ql (S) Non-Reactive Culture, urineOrdered By: Lissa Osuna on 06-10-2023 Bacteria identified Cx Nom (U) Culture exhibits no growth. Bacteria identified Cx Nom (U) Culture exhibits no growth. Laboratory - Chemistry and C hemistry - challengeon 06-10-2023 Bilirubin Ql (U) Negative Glucose Ql (U) Negative Ketones Ql (U) Negative pH (U) 7.0 [pH] Specific gravity (U) [Rel density] 1.015 Urobilinogen (U) [Mass/Vol] 0.2145580 mg/dL Laboratory - Hematology and Cell countson 06-10-2023 Hemoglobin Ql (U) Negative Laboratory - Specimen inform ationon 06-10-2023 Clarity (U) Cloudy Color (U) [facility] - Urinalysison Nitrite Ql (U) Negative Protein Ql (U) Negative No Panel Informationon 06-10 Urine Leukocytes Positive Urine Non-Hemolyzed Blood Laboratory - Chemistry and C hemistry - challengeon 05-13-2023 Glucose Ql (U) Negative Laboratory - Urinalysison Protein Ql (U) Negative No Panel InformationOrdered By: Ida Ye on 05-13-2023 Miscellaneous Test Comment MAILED SPECIMEN Laboratory - Chemistry and C hemistry - challengeon 04-14-2023 Glucose Ql (U) Negative Laboratory - Urinalysison Protein Ql (U) Negative Laboratory - Chemistry and C hemistry - challengeon 03-16-2023 Glucose Ql (U) Negative Laboratory - Urinalysison Protein Ql (U) Negative Absolute lymphocyte countOrd ered By: Farrah Restrepo on 03-12-2023 Lymphocytes Auto (Unsp spec) [#/Vol] 1.80 10*3/uL 0.83-4.51 Basophil percentageOrdered B y: Farrah Restrepo on 03-12-2023 Basophils/100 WBC (Bld) 0.5 % 0-1 [facility] Eosinophils/100 WBC (Bld) 1.1 % 0-5 Neutrophils (Bld) [#/Vol] 8.3 10*3/uL 2.0-7.7 Neutrophils/100 WBC (Bld) 74.4 % 47-70 WBC (Bld) [#/Vol] 11.1 10*3/uL 4.4-11.0 [facility] Blood erythrocytes count (nu mber/volume)Ordered By: Farrah Restrepo on 03-12-2023 RBC (Bld) [#/Vol] 4.33 10*6/uL 4.2-5.4 [facility] Blood hemoglobin measurement (mass/volume)Ordered By: Farrah Restrepo on 03-12-2023 Hemoglobin (Bld) [Mass/Vol] 12.9 g/dL 12.0-15.0 Blood lymphocytes/100 leukoc ytesOrdered By: Farrah Restrepo on 03-12-2023 Lymphocytes/100 WBC (Bld) 16.2 % 19-41 Blood monocytes/100 leukocyt esOrdered By: Farrah Restrepo on 03-12-2023 Monocytes/100 WBC (Bld) 7.3 % 0-10 [facility] Blood platelet mean volumeOr dered By: Farrah Restrepo on 03-12-2023 Platelet mean volume (Bld) [Entitic vol] 10.8 fL 6.2-12.0 Determination of erythrocyte mean corpuscular volume (MCV)Ordered By: Farrah Restrepo on 03-12-2023 MCV (RBC) [Entitic vol] 88.7 fL 81-99 [facility] HIV 1 and HIV-2 antibody ass ay with HIV-1 p24 antigen detectionOrdered By: Farrah Restrepo on 03-12-2023 HIV 1+2 Ab+HIV1 p24 Ag IA Ql Non-Reactive Nonreactive Hematocrit Auto (Bld) [Volum e fraction]Ordered By: Farrah Restrepo on 03-12-2023 Hematocrit (Bld) [Volume fraction] 38.4 % 37-47 Laboratory - Hematology and Cell countsOrdered By: Farrah Restrepo on 03-12-2023 Erythrocyte distribution width (RBC) [Entitic vol] 39.8 fL 35.1-43.9 Erythrocyte distribution width (RBC) [Ratio] 12.2 % 11.6-14.6 Immature granulocytes/100 WBC (Bld) 0.500 % 0.0-0.9 Comment on above: IG% - Immature Granu locytes (promyelocytes, myelocytes and metamyelocytes) > 1% indicates that a LEFT SHIFT is Present. MCH (RBC) [Entitic mass] 29.8 pg 27.0-32.0 Nucleated RBC/100 WBC (Bld) [Ratio] 0 % 0-5 MCHC Auto (RBC) [Mass/Vol]Or dered By: Farrah Restrepo on 03-12-2023 MCHC (RBC) [Mass/Vol] 33.6 g/dL 32-36 [facility] No Panel InformationOrdered By: Farrah Restrepo on 03-12-2023 Hepatitis B Surface Antigen Non-Reactive Nonreactive Hepatitis C Antibody Non-Reactive Nonreactive [facility] Comment on above: Non Reactive: < 0.8 Equivocal: >/= 0.8 to < 1.0 Reactive: >/= 1.0The CDC recommends that a reactive/equivocal HCV antibody result be followed up by the HCV Nucleic Acid Amplificationtest (307497) Rubella IgG Antibody Reactive Nonreactive [facility] Comment on above: Antibody Results Int erpretation of Immune Status Non Reactive Presumed Non-Immune Equivocal Equivocal Reactive Presumed Immune Platelets bldOrdered By: Karissa Restrepo on 03-12-2023 Platelets (Bld) [#/Vol] 262 10*3/uL 150-450 Serum Treponema species anti body detectionOrdered By: Farrah Restrepo on 03-12-2023 Treponema sp Ab Ql (S) Non-Reactive Culture, urineOrdered By: Dr Janet Restrepo on 02-21-2023 Bacteria identified Cx Nom (U) Culture exhibits no growth. Cervical or vagninal specime n microscopic examination by cytology stain (reported asOrdered By: Dr. Restrepo on 02-19-2023 Cytology report Cyto stain Doc (Cvx/Vag) Comment . Comment on above: The Pap smear is [...] rRNA ASIF+probe Ql (Unsp spec) Negative Negative Culture, urineOrdered By: Seb Restrepo on 02-19-2023 Bacteria identified Cx Nom (U) Culture exhibits no growth. Laboratory - CytologyOrdered By: Dr. Restrepo on 02-19-2023 Corporate Legal Secretary Cyto stain Nom (Cvx/Vag) [ID] Comment . Comment on above: Vita hendrickson, Pressurised Container Filler (ASCP) Laboratory - Microbiology an d Antimicrobial susceptibilityOrdered By: Dr. Restrepo on 02-19-2023 N. gonorrhoeae DNA ASIF+probe Ql (Unsp spec) Negative Negative Comment on above: Performed at: =[address] [id number] Director: Jennifer Villareal MD, Phone: [phone] Laboratory - Miscellaneous t estsOrdered By: Dr. Restrepo on 02-19-2023 Service comment (Unsp spec) [Interp] Comment . Comment on above: This liquid based Th inPrep(R) pap test was screened withthe use of an image guided system. Service comment (Unsp spec) [Interp] . . No Panel InformationOrdered By: Dr. Restrepo on 02-19-2023 Human Papillomavirus Screen Comment . Comment on above: The HPV DNA reflex c karthik were not met with this specimenresult therefore, no HPV testing was performed.Performed at: [facility] [address] [id number] Director: Jennifer Villareal MD, Phone: [phone] Pathology report final diagnosis Narrative Comment . Comment on above: NEGATIVE FOR INTRAEP ITHELIAL LESION OR MALIGNANCY. Serum or plasma choriogonado tropin detectionOrdered By: Tere Osuna on 01-22-2023 HCG ( test) Ql 2033 mIU/mL <4 Comment on above: hCG levels with Gest ational AgeGestational Age hCG mIU/mL (IU/L)0.2 - 1 week 5 - 501-2 weeks 50 - 5002-3 weeks 100 - 59871-2 weeks 500 - 653704-1 weeks 1000 - 347179-7 weeks 71290 - 100,0006-8 weeks 89981 - 200,0002-3 months 79427 - 100,000 Serum or plasma choriogonado tropin detectionOrdered By: Tere Osuna on 01-20-2023 HCG ( test) Ql 977 mIU/mL <4 [facility] Comment on above: hCG levels with Gest ational AgeGestational Age hCG mIU/mL (IU/L)0.2 - 1 week 5 - 501-2 weeks 50 - 5002-3 weeks 100 - 16141-9 weeks 500 - 535508-0 weeks 1000 - 753716-9 weeks 34274 - 100,0006-8 weeks 28533 - 200,0002-3 months 55345 - 100,000 Serum or plasma choriogonado tropin detectionOrdered By: Dr. Rodas on 11-19-2022 HCG ( test) Ql 2 mIU/mL <4 [facility] Comment on above: hCG levels with Gest ational AgeGestational Age hCG mIU/mL (IU/L)0.2 - 1 week 5 - 501-2 weeks 50 - 5002-3 weeks 100 - 80846-7 weeks 500 - 019861-2 weeks 1000 - 101344-6 weeks 68364 - 100,0006-8 weeks 53791 - 200,0002-3 months 43954 - 100,000 Serum or plasma choriogonado tropin detectionOrdered By: Dr. Rodas on 11-17-2022 HCG ( test) Ql 13 mIU/mL <4 [facility] Comment on above: hCG levels with Gest ational AgeGestational Age hCG mIU/mL (IU/L)0.2 - 1 week 5 - 501-2 weeks 50 - 5002-3 weeks 100 - 20116-3 weeks 500 - 483143-3 weeks 1000 - 497267-0 weeks 92301 - 100,0006-8 weeks 52125 - 200,0002-3 months 97507 - 100,000 Laboratory - Chemistry and C hemistry - challengeon 2022 HCG ( test) Ql (U) Negative Work Phone: Comment on above: Very dilute urine sp ecimens, as indicated by a low specificgravity, may not contain surgical device sales representative levels of hCG. If is still suspected, a first morning urinespecimen should be collected 48 hours later and tested. Absolute lymphocyte counton 03-24-2022 Lymphocytes Auto (Unsp spec) [#/Vol] 2.12 10*3/uL 0.83-4.51 Work Phone: Basophil percentageon 2021 Basophil percentage 0 SEEN /hpf 0-5 [facility] Work Phone: Basophils/100 WBC (Bld) 0.8 % 0-1 [facility] Work Phone: Bilirubin [Mass/Vol] 0.60 mg/dL 0.20-1.00 [facility] Work Phone: Comment on above: For patients on eltr ombopag therapy, use of Dimension [place] TBIL is not recommended. Chloride [Moles/Vol] 105 mmol/L 98-107 [facility] Work Phone: Eosinophils/100 WBC (Bld) 3.2 % 0-5 Work Phone: Glucose [Mass/Vol] 108 mg/dL 74-106 [facility] Work Phone: Comment on above: Fasting Glucose resu lt from 100 to 125 mg/dL suggests IMPAIRED HOMEOSTASIS per A.D.A. criteria. Neutrophils (Bld) [#/Vol] 4.7 10*3/uL 2.0-7.7 Work Phone: Neutrophils/100 WBC (Bld) 59.9 % 47-70 Work Phone: Potassium [Moles/Vol] 3.8 mmol/L 3.5-5.1 [facility]: Protein [Mass/Vol] 7.3 g/dL 6.4-8.2 [facility] Work Phone: Sodium [Moles/Vol] 138 mmol/L 136-145 [facility] Work Phone: WBC (Bld) [#/Vol] 7.8 10*3/uL 4.4-11.0 [facility] Work Phone: Bilirubin Test strip Ql (U)o n 03-24-2022 Bilirubin Ql (U) Negative Negative Work Phone: Blood erythrocytes count (nu mber/volume)on 03-24-2022 RBC (Bld) [#/Vol] 4.42 10*6/uL 4.2-5.4 [facility] Work Phone: Blood hemoglobin measurement (mass/volume)on 03-24-2022 Hemoglobin (Bld) [Mass/Vol] 13.3 g/dL 12.0-15.0 Work Phone: Blood lymphocytes/100 leukoc yteson 03-24-2022 Lymphocytes/100 WBC (Bld) 27.3 % 19-41 Work Phone: Blood monocytes/100 leukocyt eson 03-24-2022 Monocytes/100 WBC (Bld) 8.5 % 0-10 [facility] Work Phone: Blood platelet mean volumeon 03-24-2022 Platelet mean volume (Bld) [Entitic vol] 10.6 fL 6.2-12.0 Work Phone: Determination of erythrocyte mean corpuscular volume (MCV)on 03-24-2022 MCV (RBC) [Entitic vol] 88.0 fL 81-99 [facility] Work Phone: [phone] Direct bilirubinon Bilirubin.direct [Mass/Vol] 0.15 mg/dL 0.00-0.30 Work Phone: [phone] Hematocrit Auto (Bld) [Volum e fraction]on 03-24-2022 Hematocrit (Bld) [Volume fraction] 38.9 % 37-47 Work Phone: [phone] Ketones Test strip Ql (U)on 03-24-2022 Ketones Ql (U) Negative Negative Work Phone: [phone] Laboratory - Chemistry and C hemistry - challengeon 03-24-2022 HCG ( test) Ql (U) Negative Work Phone: [phone] Comment on above: Very dilute urine sp ecimens, as indicated by a low specificgravity, may not contain surgical device sales representative levels of hCG. If is still suspected, a first morning urinespecimen should be collected 48 hours later and tested. ALP [Catalytic activity/Vol] 63 U/L 45-117 Work Phone: [phone] ALT [Catalytic activity/Vol] 23 U/L 13-56 Work Phone: [phone] CO2 [Moles/Vol] 27.0 mmol/L 21.0-32.0 Work Phone: [phone] Globulin (S) [Mass/Vol] 3.7 g/dL 2.2-4.2 [facility] Work Phone: [phone] Lipase [Catalytic activity/Vol] 128 U/L 73-393 Work Phone: [phone] Urea nitrogen/Creatinine [Mass ratio] 17.6 mg/mg 10-20 Work Phone: [phone] Laboratory - Hematology and Cell countson 03-24-2022 Erythrocyte distribution width (RBC) [Entitic vol] 40.8 fL 35.1-43.9 Work Phone: [phone] Erythrocyte distribution width (RBC) [Ratio] 12.5 % 11.6-14.6 Work Phone: Immature granulocytes/100 WBC (Bld) 0.300 % 0.0-0.9 Work Phone: [phone] Comment on above: IG% - Immature Granu locytes (promyelocytes, myelocytes and metamyelocytes) > 1% indicates that a LEFT SHIFT is Present. MCH (RBC) [Entitic mass] 30.1 pg 27.0-32.0 Work Phone: Nucleated RBC/100 WBC (Bld) [Ratio] 0 % 0-5 Work Phone: [phone] MCHC Auto (RBC) [Mass/Vol]on 03-24-2022 MCHC (RBC) [Mass/Vol] 34.2 g/dL 32-36 [facility] Work Phone: Mucus LM Ql (Urine sed)on Mucus Ql (Urine sed) 0 SEEN /hpf [facility] Work Phone: [phone] Nitrite Test strip Ql (U)on 03-24-2022 Nitrite Ql (U) Negative Negative Work Phone: No Panel Informationon 03-24 Estimated Creatinine Clearance Calc 111.82 ml/min Work Phone: [phone] Estimated GFR (MDRD) Amer 133 mL/min >60 Work Phone: [phone] Comment on above: GFR Calc Estimated GFR (MDRD) Non-Af Amer 110 mL/min >60 Work Phone: [phone] Comment on above: Non- GFR Calc Platelets bldon 03-24-2022 Platelets (Bld) [#/Vol] 263 10*3/uL 150-450 Work Phone: [phone] Protein Test strip Ql (U)on 03-24-2022 Protein Ql (U) Negative Negative Work Phone: [phone] Serum or plasma albumin arnel urement (mass/volume)on 03-24-2022 Albumin [Mass/Vol] 3.6 g/dL 3.2-5.0 [facility] Work Phone: Serum or plasma calcium arnel urement (mass/volume)on 03-24-2022 Calcium [Mass/Vol] 9.2 mg/dL 8.5-10.1 [facility] Work Phone: Serum or plasma creatinine m easurement (mass/volume)on 03-24-2022 Creatinine [Mass/Vol] 0.68 mg/dL 0.55-1.02 [facility] Work Phone: Comment on above: The validity of the calculated GFR & GFRAA in patients over 70 years has not been determined. Clinical correlation is essential. Serum or plasma urea nitroge n measurement (mass/volume)on 03-24-2022 Urea nitrogen [Mass/Vol] 12 mg/dL 03-24 Work Phone: Squamous epithelial cells de tection in urine sediment by light microscopyon 03-24-2022 Epithelial cells.squamous LM Ql (Urine sed) 0 SEEN /hpf 5-10 Work Phone: Thin prep Papanicolaou smear with manual screeningon 03-24-2022 Thin prep Papanicolaou smear with manual screening 14 U/L 15-37 Work Phone: [phone] Thin prep Papanicolaou smear with manual screening 6 5-15 Work Phone: Urine blood detectionon 03-07 RBC Ql (U) Negative Negative Work Phone: RBC Ql (U) 0 SEEN /hpf 0-5 Work Phone: Urine clarityon 03-24-2022 Clarity (U) Clear Clear Work Phone: Urine color determinationon 03-24-2022 Color (U) Yellow Yellow Work Phone: Urine glucose detectionon Glucose Ql (U) Normal mg/dl Normal Work Phone: Urine leukocyte esterase det ection by dipstickon 03-24-2022 Leukocyte esterase Test strip Ql (U) Negative Negative Work Phone: [phone] Urine pHon 03-24-2022 pH (U) 6.0 [pH] 5.0 - 8.0 Work Phone: Urine sediment bacteria coun t by microscopy (number/high power field)on 03-24-2022 Bacteria LM.HPF (Urine sed) [#/Area] 2 /[HPF] None Seen Work Phone: [phone] Urine specific gravity measu rementon 03-24-2022 Specific gravity (U) [Rel density] 1.015 1.002-1.030 Work Phone: Urobilinogen Auto test strip Ql (U)on 03-24-2022 Urobilinogen Ql (U) Normal mg/dl Normal [facility] Work Phone: Revenue Enforcement Collection Agent Cytology Reporton 2019 Revenue Enforcement Collection Agent Cytology Report . Pathology Reports Accession: Collected Date/Time: Received Date/Time: Pathologist: [id number] 04/16/2020 08:22 EDT 04/18/2020 18:00 EDT [employer] Collection Agent Cytology Report SPECIMEN: Specimen Description: Liquid Prep Reflex ASCUS+ Specimen: Cervical/Endocervical Screening or Diagnostic: Screening RELEVANT HISTORY: LMP: unknown [id number] SPECIMEN ADEQUACY: SATISFACTORY FOR EVALUATION ENDOCERVICAL/TRANSFORM ATIONAL ZONE COMPONENT ABSENT/INSUFFICIENT INTERPRETATION/RESULTS : NEGATIVE FOR INTRAEPITHELIAL LESION OR MALIGNANCY COMMENT: This Pap Test was successfully processed and evaluated with the assistance of the [employer] ThinPrep Test Imaging System. Electronically Signed by Pathology report verified by [facility] Screened by: KK Electronically signed by Kira GUTHRIE (ASCP) Sign-Out Date: 05/01/2020 10:21 Performing Lab: [facility], [address] [place] [id number] [facility] Disclaimer The Pap test is a screening test for cervical cancer. As evidenced by published data, it is subject to both inherent false negative and false positive results. Your patient's results should be interpreted in context with pertinent clinical history including gynecological examination. Normal [facility] (ID) Comment on above: Performed By: #### G YCR #### [place] [address] HEP B SURF AB QUANT [QUEST]o n 06-27-2018 HEP B SURF AB QUANT [QUEST] Normal [facility] Comment on above: Result Comment: _HEP B SURF AB QUANT_HEPATITIS B SURFACE ANTIBODY IMMUNITY, (QUANT)Reported: 06/26/2018 20:35 Status=F TEST RESULT FLAG RANGE UNITS HEP B SURF AB IMMUNITY,QN >1000 >=10 mIU/mL 06/26/18.2046.rfl.COMPLETE.AMRR .5193-8PATIENT HAS IMMUNITY TO HEPATITIS B VIRUS.For more information on this test, go to:http://education.[employer]/faq/KDZ122Nsvm Performed by [facility] [employer] [facility],[address] [place] [address]Jqtnzhgalexandra Avila M.D., Ph.D., Director of [phone], [facility] [id number] Performed By: #### 2 [id number] ####[facility],[address] [place] [address] NICOTINE AND METABOLITE URIN E [QUEST]on 10-13-2017 NICOTINE AND METABOLITE URINE [QUEST] Normal [facility] Comment on above: Result Comment: _NIC OTINE AND METABOLITE,URINE_NICOTINE AND COTININE, LC/MS/MS, URINEReported: 10/13/2017 12:58 Status=F TEST RESULT FLAG RANGE UNITS NICOTINE, URINE <2 ng/mL 10/13/17.1310.rfl.COMPLETE.AMRR .3854-7COTININE, URINE <2 ng/mL 10/13/17.1310.rfl.COMPLETE.AMRR .79494-5 Reference Range, Urine(ng/mL): Nicotine Smokers: 200-700 Nonsmokers: <=17 Cotinine Smokers: 300-1300 Nonsmokers: <=20Individuals exposed to second-hand or passive tobaccosmoke may demonstrate concentrations of nicotine andcotinine greater than those indicated for non-smokers.Test Performed by Mattie Ervin,[facility],[address] [place] [id number] Avila M.D., Ph.D., Director of [phone], [facility] [id number] Performed By: #### 2 [address]8589 ####[facility],[address] [place] [address] MMR PROFILEon 10-12-2017 Protein mass conc Normal [facility] Comment on above: Result Comment: _MMR PROFILE_MMR (IGG) PANEL (MEASLES, MUMPS, RUBELLA)Reported: 10/12/2017 09:02 Status=F TEST RESULT FLAG RANGE UNITS MEASLES ANTIBODY (IGG) 107.00 >29.99 AU/mL 10/12/17.rfl.COMPLETE.AMRR .5244-9AU/mL Interpretation===== <25.00 Mgxstrxr24.00 - 29.99 Equivocal>29.99 PositiveA positive result indicates that the patient hasantibody to measles virus. It does not differentiatebetween an active or past infection. The clinicaldiagnosis must be interpreted in conjunction withclinical signs and symptoms of the patient.MUMPS VIRUS ANTIBODY 37.30 >10.99 AU/mL 10/12/17.rfl.COMPLETE.AMRR .06460-6(IGG) AU/mL Interpretation < 9.00 Negative 9.00 - 10.99 Equivocal > 10.99 PositiveA positive result indicates that the patient hasantibody to Mumps Virus. It does not differentiatebetween an active or past infection. The clinicaldiagnosis must be interpreted in conjunction withthe clinical signs and symptoms of the patient.RUBELLA ANTIBODY (IGG) 9.87 >=1.00 Index 10/12/17.rfl.COMPLETE.AMRR .5334-8INDEX INTERPRETATION < 0.90 Not consistent with Immunity0.90 - 0.99 Equivocal> or = 1.00 Consistent with ImmunityThe presence of Rubella IgG antibody suggestsimmunization or past or current infection withRubella virus.Test Performed by Marco Erviny,[employer],[address] [place], [place] [address]ZwsmupgAllegra Avila M.D., Ph.D., Director of [phone], CLIA [id number] Performed By: #### 2 [address]41 ####[address] [address] HEP B SURF AB QUANT [QUEST]o n 10-11-2017 HEP B SURF AB QUANT [QUEST] Normal [facility] Comment on above: Result Comment: _HEP B SURF AB QUANT_HEPATITIS B SURFACE ANTIBODY IMMUNITY, (QUANT)Reported: 10/11/2017 19:47 Status=F TEST RESULT FLAG RANGE UNITS HEP B SURF AB IMMUNITY,QN 6 L >=10 mIU/mL 10/11/17.1959.rfl.COMPLETE.AMRR .5193-8PATIENT DOES NOT HAVE IMMUNITY TO HEPATITIS B VIRUS.For more information on this test, go to:http://education.[employer]/faq/JOD970Miiu Performed by [facility],[address] [place], [place] [address]JighlijAllegra Avila M.D., Ph.D., Director of [phone], CLIA [id number] Performed By: #### 2 [address]38 ####[facility],[address] [place], [place] [id number] DRUG SCREEN URINE MEDICon AMPHETAMINES Negative Normal [facility] Comment on above: Performed By: #### 2 47053 ####[facility],[address] [place] [address] B-DIAZEPINES Negative Normal [facility] Comment on above: Performed By: #### 2 70875 ####[facility],[address] [place] [address] BARBITURATES Negative Normal [facility] Comment on above: Performed By: #### 2 17088 ####[facility],[address] [place] [address] COCAINE Negative [facility] Comment on above: Performed By: #### 2 62819 ####[facility],[address] [place] [address] DRUG SCREEN URINE MEDIC Normal [facility] Comment on above: Result Comment: DRUG SCREEN - URINE Performed By: #### 2 66100 ####[facility],[address] [place] [address] METHADONE Negative Normal [facility] Comment on above: Performed By: #### 2 88324 ####[facility],[address] [place] [address] OPIATES Negative Normal [facility] Comment on above: Performed By: #### 2 44523 ####[facility],[address] [place] [address] PCP Negative Normal [facility] Comment on above: Performed By: #### 2 65534 ####[facility],[address] [place] [address] TCA Negative [facility] Comment on above: Performed By: #### 2 39046 ####[facility],[address] [place] [address] THC Negative Normal [facility] Comment on above: Result Comment: DOMINGA ENTS RECEIVING PROTON PUMP INHIBITORS MAY DEMONSTRATE FALSE POSITIVETHC/CANNABINOID RESULTS. AN ALTERNATIVE CONFIRMATORY METHOD SHOULD BE CONSIDEREDTO VERIFY POSITIVE RESULTS. Performed By: #### 2 74221 ####[facility],[address] [place] [address] GLUCOSEon 10-08-2017 Glucose mass conc 90 mg/dL Normal 74 - [address] [facility] Comment on above: Performed By: #### 2 40612 ####[facility],[address] [place] [address] LIPID PROFILEon 10-08-2017 Cholesterol in HDL mass conc 48 mg/dL Normal 40 - [address] [facility] Comment on above: Performed By: #### [id number] ####[facility],[address] [place] [id number] Cholesterol in LDL mass conc 124 mg/dl Normal 0 - [address] [facility] Comment on above: Performed By: #### [id number] ####[facility],[address] [place] [id number] Cholesterol mass conc 199 mg/dL Normal 0 - 200 [facility] Comment on above: Performed By: #### [id number] ####[facility],[address] [place] [id number] Cholesterol.total/Onofre sterol in HDL mass ratio 4.1 {ratio} Normal 0.0 - 5.[address] [facility] Comment on above: Performed By: #### [id number] ####[facility],[address] [place] [id number] Protein mass conc Normal [facility] Comment on above: Result Comment: LIPI D PROFILE Performed By: #### [id number] ####[address] [id number] Triglyceride mass conc 136 mg/dL Normal 0 - [address] [facility] Comment on above: Performed By: #### [id number] ####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 Allyssa Velarde DO Work Phone: 06-08-2025 14:00-0400 Body mass index (BMI) [Ratio] 25.2 kg/m2 Dr. Allyssa Velarde DO Work Phone: 06-08-2025 14:00-0400 Body weight 68.[address] Allyssa Velarde DO Work Phone: 06-08-2025 14:00-0400 Diastolic blood pressure 76 mm[Hg] Dr. Allyssa Velarde DO Work Phone: 06-08-2025 14:00-0400 Systolic blood pressure 115 mm[Hg] Dr. Allyssa Velarde DO Work Phone: 04-23-2025 13:46-0400 Diastolic blood pressure 74 mm[Hg] Dr. Allyssa Velarde DO Work Phone: 04-23-2025 13:46-0400 Heart rate 87 /min Dr. Allyssa Velarde DO Work Phone: 04-23-2025 13:46-0400 Systolic blood pressure 111 mm[Hg] Dr. Allyssa Velarde DO Work Phone: 04-23-2025 13:45-0400 Body temperature 97.9 [degF] Dr. Allyssa Velarde DO Work Phone: 04-23-2025 13:45-0400 Respiratory rate 16 /min Dr. Allyssa Velarde DO Work Phone: 04-23-2025 13:45-0400 SaO2% (BldA) [Mass fraction] 98 % Dr. Allyssa Velarde DO Work Phone: 04-22-2025 09:00-0400 Body height 165.[address] Allyssa Velarde DO Work Phone: 04-22-2025 09:00-0400 Body mass index (BMI) [Ratio] 28.3 kg/m2 Dr. Allyssa Velarde DO Work Phone: 04-22-2025 09:00-0400 Body weight 77.[address] Allyssa Velarde DO Work Phone: 04-17-2025 09:45-0400 Body height 162.[address] Allyssa Velarde DO Work Phone: 04-17-2025 09:43-0400 Body mass index (BMI) [Ratio] 28.6 kg/m2 Dr. Allyssa Velarde DO Work Phone: 04-17-2025 09:43-0400 Body weight 75.[address] Allyssa Velarde DO Work Phone: 04-17-2025 09:43-0400 Diastolic blood pressure 84 mm[Hg] Dr. Allyssa Velarde DO Work Phone: 04-17-2025 09:43-0400 Systolic blood pressure 125 mm[Hg] Dr. Allyssa Velarde DO Work Phone: 04-13-2025 10:04-0400 Body height 162.[address] Allyssa Velarde DO Work Phone: 04-13-2025 10:04-0400 Body mass index (BMI) [Ratio] 29.2 kg/m2 Dr. Allyssa Velarde DO Work Phone: 04-13-2025 10:04-0400 Body weight 77.[address] Allyssa Velarde DO Work Phone: 04-13-2025 10:04-0400 Diastolic blood pressure 83 mm[Hg] Dr. Allyssa Velarde DO Work Phone: 04-13-2025 10:04-0400 Systolic blood pressure 116 mm[Hg] Dr. Allyssa Velarde DO Work Phone: 04-03-2025 10:21-0400 Body height 162.[address] Allyssa Velarde DO Work Phone: 04-03-2025 10:21-0400 Body mass index (BMI) [Ratio] 28.3 kg/m2 Dr. Allyssa Velarde DO Work Phone: 04-03-2025 10:21-0400 Body weight 74.[address] Allyssa Velarde DO Work Phone: 04-03-2025 10:21-0400 Diastolic blood pressure 74 mm[Hg] Dr. Allyssa Veladre DO Work Phone: 04-03-2025 10:21-0400 Systolic blood pressure 116 mm[Hg] Dr. Allyssa Velarde DO Work Phone: 03-30-2025 14:46-0400 Body height 162.[address] Allyssa Velarde DO Work Phone: 03-30-2025 14:46-0400 Body mass index (BMI) [Ratio] 28.3 kg/m2 Dr. Allyssa Velarde DO Work Phone: 03-30-2025 14:46-0400 Body weight 74.[address] Allyssa Velarde DO Work Phone: 03-30-2025 14:46-0400 Diastolic blood pressure 68 mm[Hg] Dr. Allyssa Velarde DO Work Phone: 03-30-2025 14:46-0400 Systolic blood pressure 100 mm[Hg] Dr. Allyssa Velarde DO Work Phone: 03-26-2025 08:56-0400 Body height 162.[address] Allyssa Velarde DO Work Phone: 03-26-2025 08:56-0400 Body mass index (BMI) [Ratio] 27.8 kg/m2 Dr. Allyssa Velarde DO Work Phone: 03-26-2025 08:56-0400 Body temperature 97.7 [degF] Dr. Allyssa Velarde DO Work Phone: 03-26-2025 08:56-0400 Body weight 73.[address] Allyssa Velarde DO Work Phone: 03-26-2025 08:56-0400 Diastolic blood pressure 62 mm[Hg] Dr. Allyssa Velarde DO Work Phone: 03-26-2025 08:56-0400 Heart rate 88 /min Dr. Allyssa Velarde DO Work Phone: 03-26-2025 08:56-0400 Respiratory rate 16 /min Dr. Allyssa Velarde DO Work Phone: 03-26-2025 08:56-0400 SaO2% (BldA) [Mass fraction] 96 % Dr. Allyssa Velarde DO Work Phone: 03-26-2025 08:56-0400 Systolic blood pressure 100 mm[Hg] Dr. Allyssa Velarde DO Work Phone: 03-20-2025 09:36-0400 Body height 162.[address] Allyssa Velarde DO Work Phone: 03-20-2025 09:36-0400 Body mass index (BMI) [Ratio] 27.8 kg/m2 Dr. Allyssa Velarde DO Work Phone: 03-20-2025 09:36-0400 Body weight 73.[address] Allyssa Velarde DO Work Phone: 03-20-2025 09:36-0400 Diastolic blood pressure 64 mm[Hg] Dr. Allyssa Velarde DO Work Phone: 03-20-2025 09:36-0400 Systolic blood pressure 98 mm[Hg] Dr. Allyssa Velarde DO Work Phone: 03-08-2025 10:30-0400 Body height 162.[address] Allyssa Velarde DO Work Phone: 03-08-2025 10:26-0400 Body mass index (BMI) [Ratio] 27.8 kg/m2 Dr. Allyssa Velarde DO Work Phone: 03-08-2025 10:26-0400 Body weight 73.[address] Allyssa Velarde DO Work Phone: 03-08-2025 10:26-0400 Diastolic blood pressure 66 mm[Hg] Dr. Allyssa Velarde DO Work Phone: 03-08-2025 10:26-0400 Systolic blood pressure 97 mm[Hg] Dr. Allyssa Velarde DO Work Phone: 02-24-2025 11:08-0400 Body height 162.[address] Allyssa Velarde DO Work Phone: 02-24-2025 11:08-0400 Body mass index (BMI) [Ratio] 28.1 kg/m2 Dr. Allyssa Velarde DO Work Phone: 02-24-2025 11:08-0400 Body weight 74.[address] Allyssa Velarde DO Work Phone: 02-24-2025 11:08-0400 Diastolic blood pressure 79 mm[Hg] Dr. Allyssa Velarde DO Work Phone: 02-24-2025 11:08-0400 Systolic blood pressure 126 mm[Hg] Dr. Allyssa Velarde DO Work Phone: 02-06-2025 11:11-0400 Body height 162.[address] Allyssa Velarde DO Work Phone: 02-06-2025 11:11-0400 Body mass index (BMI) [Ratio] 27.8 kg/m2 Dr. Allyssa Velarde DO Work Phone: 02-06-2025 11:11-0400 Body weight 73.[address] Allyssa Velarde DO Work Phone: 02-06-2025 11:11-0400 Diastolic blood pressure 75 mm[Hg] Dr. Allyssa Velarde DO Work Phone: 02-06-2025 11:11-0400 Systolic blood pressure 112 mm[Hg] Dr. Allyssa Velarde DO Work Phone: 01-23-2025 10:17-0400 Body height 162.[address] Allyssa Velarde DO Work Phone: 01-23-2025 10:17-0400 Body mass index (BMI) [Ratio] 27.7 kg/m2 Dr. Allyssa Velarde DO Work Phone: 01-23-2025 10:17-0400 Body weight 73.[address] Allyssa Velarde DO Work Phone: 01-23-2025 10:17-0400 Diastolic blood pressure 75 mm[Hg] Dr. Allyssa Velarde DO Work Phone: 01-23-2025 10:17-0400 Systolic blood pressure 107 mm[Hg] Dr. Allyssa Velarde DO Work Phone: 12-28-2024 14:53-0400 Body mass index (BMI) [Ratio] 27.3 kg/m2 Dr. Allyssa Velarde DO Work Phone: 12-28-2024 14:53-0400 Body weight 72.[address] Allyssa Velarde DO Work Phone: 12-28-2024 14:53-0400 Diastolic blood pressure 74 mm[Hg] Dr. Allyssa Velarde DO Work Phone: 12-28-2024 14:53-0400 Systolic blood pressure 110 mm[Hg] Dr. Allyssa Velarde DO Work Phone: 12-02-2024 09:59-0400 Body mass index (BMI) [Ratio] 27.4 kg/m2 Dr. Allyssa Velarde DO Work Phone: 12-02-2024 09:59-0400 Body weight 72.[address] Allyssa Velarde DO Work Phone: 12-02-2024 09:59-0400 Diastolic blood pressure 70 mm[Hg] Dr. Allyssa Velarde DO Work Phone: 12-02-2024 09:59-0400 Systolic blood pressure 118 mm[Hg] Dr. Allyssa Velarde DO Work Phone: 11-19-2024 00:00-0400 Heart rate 81 /min Dr. Allyssa Velarde DO Work Phone: 11-19-2024 00:00-0400 Respiratory rate 21 /min Dr. Allyssa Velarde DO Work Phone: 11-19-2024 00:00-0400 SaO2% (BldA) [Mass fraction] 97 % Dr. Allyssa Velarde DO Work Phone: 11-18-2024 22:00-0400 Diastolic blood pressure 66 mm[Hg] Dr. Allyssa Velarde DO Work Phone: 11-18-2024 22:00-0400 Systolic blood pressure 107 mm[Hg] Dr. Allyssa Velarde DO Work Phone: 11-18-2024 18:02-0400 Body height 162.[address] Allyssa Velarde DO Work Phone: 11-18-2024 18:02-0400 Body mass index (BMI) [Ratio] 26.6 kg/m2 Dr. Allyssa Velarde DO Work Phone: 11-18-2024 18:02-0400 Body temperature 98 [degF] Dr. Allyssa Velarde DO Work Phone: 11-18-2024 18:02-0400 Body weight 70.[address] Allyssa Velarde DO Work Phone: 11-18-2024 08:37-0400 Body temperature 97.39 [degF] Wenceslao Short Jr., POLISH MAKER.DENTAL HYGIENE ADMINISTRATIVE ASSISTANT Work Phone: [facility] 11-18-2024 08:37-0400 Body weight 70.94 kg Wenceslao Short Jr., POLISH MAKER.DENTAL HYGIENE ADMINISTRATIVE ASSISTANT Work Phone: [facility] 11-18-2024 08:37-0400 Diastolic blood pressure 71 mm[Hg] Wenceslao Short Jr., POLISH MAKER.DENTAL HYGIENE ADMINISTRATIVE ASSISTANT Work Phone: [facility] 11-18-2024 08:37-0400 Heart rate 110 /min Wenceslao Short Jr., POLISH MAKER.DENTAL HYGIENE ADMINISTRATIVE ASSISTANT Work Phone: [facility] 11-18-2024 08:37-0400 Respiratory rate 18 /min Wenceslao Short Jr., POLISH MAKER.DENTAL HYGIENE ADMINISTRATIVE ASSISTANT Work Phone: [facility] 11-18-2024 08:37-0400 SaO2% (BldA) [Mass fraction] 99 % Wenceslao Short Jr., POLISH MAKER.DENTAL HYGIENE ADMINISTRATIVE ASSISTANT Work Phone: [facility] 11-18-2024 08:37-0400 Systolic blood pressure 106 mm[Hg] Wenceslao Short Jr., DIANN Work Phone: [facility] 11-02-2024 14:21-0500 Body mass index (BMI) [Ratio] 27.4 kg/m2 Dr. Allyssa Velarde DO Work Phone: 11-02-2024 14:21-0500 Body weight 72.[address] Allyssa Velarde DO Work Phone: 11-02-2024 14:21-0500 Diastolic blood pressure 85 mm[Hg] Dr. Allyssa Velarde DO Work Phone: 11-02-2024 14:21-0500 Systolic blood pressure 122 mm[Hg] Dr. Allyssa Velarde DO Work Phone: 10-05-2024 12:36-0500 Body mass index (BMI) [Ratio] 28.1 kg/m2 Dr. Allyssa Velarde DO Work Phone: 10-05-2024 12:36-0500 Body weight 74.[address] Allyssa Velarde DO Work Phone: 10-05-2024 12:36-0500 Diastolic blood pressure 75 mm[Hg] Dr. Allyssa Velarde DO Work Phone: 10-05-2024 12:36-0500 Systolic blood pressure 120 mm[Hg] Dr. Allyssa Velarde DO Work Phone: 09-26-2023 12:12-0500 Body temperature 97.8 [degF] Dr. Allyssa Velarde Work Phone: 09-26-2023 12:12-0500 Heart rate 74 /min Dr. Allyssa Velarde Work Phone: 09-26-2023 12:12-0500 Respiratory rate 16 /min Dr. Allyssa Velarde Work Phone: 09-26-2023 12:12-0500 SaO2% (BldA) [Mass fraction] 98 % Dr. Allyssa Velarde Work Phone: 09-26-2023 11:19-0500 Diastolic blood pressure 71 mm[Hg] Dr. Allyssa Velarde Work Phone: 09-26-2023 11:19-0500 Systolic blood pressure 136 mm[Hg] Dr. Allyssa Velarde Work Phone: 09-24-2023 10:17-0500 Body height 162.[address] Allyssa Velarde Work Phone: 09-24-2023 10:17-0500 Body mass index (BMI) [Ratio] 31.4 kg/m2 Dr. Allyssa Velarde Work Phone: 09-24-2023 10:17-0500 Body weight 83.[address] Allyssa Velarde Work Phone: 09-23-2023 14:24-0500 Body mass index (BMI) [Ratio] 31.1 kg/m2 Dr. Allyssa Velarde Work Phone: 09-23-2023 14:24-0500 Body weight 82.[address] Allyssa Velarde Work Phone: 09-23-2023 14:24-0500 Diastolic blood pressure 86 mm[Hg] Dr. Allyssa Velarde Work Phone: 09-23-2023 14:24-0500 Systolic blood pressure 128 mm[Hg] Dr. Allyssa Velarde Work Phone: 09-18-2023 12:12-0500 Body mass index (BMI) [Ratio] 31.2 kg/m2 Dr. Allyssa Velarde Work Phone: 09-18-2023 12:12-0500 Body weight 82.[address] Allyssa Velarde Work Phone: 09-18-2023 12:12-0500 Diastolic blood pressure 84 mm[Hg] Dr. Allyssa Velarde Work Phone: 09-18-2023 12:12-0500 Systolic blood pressure 124 mm[Hg] Dr. Allyssa Velarde Work Phone: 09-10-2023 14:46-0500 Body mass index (BMI) [Ratio] 31.2 kg/m2 Dr. Allyssa Velarde Work Phone: 09-10-2023 14:46-0500 Body weight 82.[address] Allyssa Velarde Work Phone: 09-10-2023 14:46-0500 Diastolic blood pressure 79 mm[Hg] Dr. Allyssa Velarde Work Phone: 09-10-2023 14:46-0500 Systolic blood pressure 118 mm[Hg] Dr. Allyssa Velarde Work Phone: 09-02-2023 08:28-0500 Body height 162.[address] Allyssa Velarde Work Phone: 09-02-2023 08:28-0500 Body mass index (BMI) [Ratio] 30.7 kg/m2 Dr. Allyssa Velarde Work Phone: 09-02-2023 08:28-0500 Body weight 81.[address] Allyssa Velarde Work Phone: 09-02-2023 08:28-0500 Diastolic blood pressure 82 mm[Hg] Dr. Allyssa Velarde Work Phone: 09-02-2023 08:28-0500 Heart rate 86 /min Dr. Allyssa Velarde Work Phone: 09-02-2023 08:28-0500 Systolic blood pressure 126 mm[Hg] Dr. Allyssa Velarde Work Phone: 08-26-2023 14:09-0500 Body mass index (BMI) [Ratio] 30.6 kg/m2 Dr. Allyssa Velarde Work Phone: 08-26-2023 14:09-0500 Body weight 80.[address] Allyssa Velarde Work Phone: 08-26-2023 14:09-0500 Diastolic blood pressure 82 mm[Hg] Dr. Allyssa Velarde Work Phone: 08-26-2023 14:09-0500 Systolic blood pressure 126 mm[Hg] Dr. Allyssa Velarde Work Phone: 08-10-2023 10:54-0500 Body mass index (BMI) [Ratio] 29.7 kg/m2 Dr. Allyssa Velarde Work Phone: 08-10-2023 10:54-0500 Body weight 78.[address] Allyssa Velarde Work Phone: 08-10-2023 10:54-0500 Diastolic blood pressure 66 mm[Hg] Dr. Allyssa Velarde Work Phone: 08-10-2023 10:54-0500 Systolic blood pressure 108 mm[Hg] Dr. Allyssa Velarde Work Phone: 07-23-2023 16:07-0500 Body height 162.[address] Allyssa Velarde Work Phone: 07-23-2023 16:06-0500 Body mass index (BMI) [Ratio] 29.5 kg/m2 Dr. Allyssa Velarde Work Phone: 07-23-2023 16:06-0500 Body weight 78.[address] Allyssa Velarde Work Phone: 07-23-2023 16:06-0500 Diastolic blood pressure 79 mm[Hg] Dr. Allyssa Velarde Work Phone: 07-23-2023 16:06-0500 Systolic blood pressure 114 mm[Hg] Dr. Allyssa Velarde Work Phone: 07-20-2023 14:34-0500 Body temperature 98.3 [degF] Dr. Allyssa Velarde Work Phone: 07-20-2023 14:34-0500 Diastolic blood pressure 74 mm[Hg] Dr. Allyssa Velarde Work Phone: 07-20-2023 14:34-0500 Heart rate 103 /min Dr. Allyssa Velarde Work Phone: 07-20-2023 14:34-0500 Respiratory rate 12 /min Dr. Allyssa Velarde Work Phone: 07-20-2023 14:34-0500 SaO2% (BldA) [Mass fraction] 97 % Dr. Allyssa Velarde Work Phone: 07-20-2023 14:34-0500 Systolic blood pressure 118 mm[Hg] Dr. Allyssa Velarde Work Phone: 07-08-2023 13:51-0400 Body height 162.[address] Allyssa Velarde Work Phone: 07-08-2023 13:48-0400 Body mass index (BMI) [Ratio] 28.5 kg/m2 Dr. Allyssa Velarde Work Phone: 07-08-2023 13:48-0400 Body weight 75.[address] Allyssa Velarde Work Phone: 07-08-2023 13:48-0400 Diastolic blood pressure 73 mm[Hg] Dr. Allyssa Velarde Work Phone: 07-08-2023 13:48-0400 Systolic blood pressure 117 mm[Hg] Dr. Allyssa Velarde Work Phone: 06-10-2023 14:05-0400 Body mass index (BMI) [Ratio] 28.2 kg/m2 Dr. Allyssa Velarde Work Phone: 06-10-2023 14:05-0400 Body weight 74.[address] Allyssa Velarde Work Phone: 06-10-2023 14:05-0400 Diastolic blood pressure 78 mm[Hg] Dr. Allyssa Velarde Work Phone: 06-10-2023 14:05-0400 Systolic blood pressure 108 mm[Hg] Dr. Allyssa Velarde Work Phone: 05-13-2023 13:31-0400 Body height 162.[address] Allyssa Velarde Work Phone: 05-13-2023 13:31-0400 Body mass index (BMI) [Ratio] 27.3 kg/m2 Dr. Allyssa Velarde Work Phone: 05-13-2023 13:31-0400 Body weight 72.[address] Allyssa Velarde Work Phone: 05-13-2023 13:31-0400 Diastolic blood pressure 72 mm[Hg] Dr. Allyssa Velarde Work Phone: 05-13-2023 13:31-0400 Systolic blood pressure 118 mm[Hg] Dr. Allyssa Velarde Work Phone: 04-14-2023 10:07-0400 Body mass index (BMI) [Ratio] 26.6 kg/m2 Dr. Allyssa Velarde Work Phone: 04-14-2023 10:07-0400 Body weight 70.[address] Allyssa Velarde Work Phone: 04-14-2023 10:07-0400 Diastolic blood pressure 74 mm[Hg] Dr. Allyssa Velarde Work Phone: 04-14-2023 10:07-0400 Systolic blood pressure 108 mm[Hg] Dr. Allyssa Velarde Work Phone: 03-16-2023 16:06-0400 Body height 162.[address] Allyssa Velarde Work Phone: 03-16-2023 16:06-0400 Body mass index (BMI) [Ratio] 27 kg/m2 Dr. Allyssa Velarde Work Phone: 03-16-2023 16:06-0400 Body weight 71.[address] Allyssa Velarde Work Phone: 03-16-2023 16:06-0400 Diastolic blood pressure 73 mm[Hg] Dr. Allyssa Velarde Work Phone: 03-16-2023 16:06-0400 Systolic blood pressure 119 mm[Hg] Dr. Allyssa Velarde Work Phone: 02-19-2023 15:09-0400 Body height 162.[address] Allyssa Velarde Work Phone: 02-19-2023 15:09-0400 Body mass index (BMI) [Ratio] 26.9 kg/m2 Dr. Allyssa Velarde Work Phone: 02-19-2023 15:09-0400 Body weight 71.[address] Allyssa Velarde Work Phone: 02-19-2023 15:09-0400 Diastolic blood pressure 81 mm[Hg] Dr. Allyssa Velarde Work Phone: 02-19-2023 15:09-0400 Systolic blood pressure 123 mm[Hg] Dr. Allyssa Velarde Work Phone: 11-27-2022 09:42-0400 Body mass index (BMI) [Ratio] 27.6 kg/m2 Dr. Allyssa Velarde Work Phone: 11-27-2022 09:42-0400 Body weight 73.[address] Allyssa Velarde Work Phone: 11-27-2022 09:42-0400 Diastolic blood pressure 82 mm[Hg] Dr. Allyssa Velarde Work Phone: 11-27-2022 09:42-0400 Systolic blood pressure 122 mm[Hg] Dr. Allyssa Velarde Work Phone: 2022 17:17-0400 Body temperature 98.8 [degF] Dr. Allyssa Velarde Work Phone: Work Phone: 2022 17:17-0400 Diastolic blood pressure 82 mm[Hg] Dr. Allyssa Velarde Work Phone: Work Phone: 2022 17:17-0400 Heart rate 85 /min Dr. Allyssa Velarde Work Phone: Work Phone: 2022 17:17-0400 Respiratory rate 16 /min Dr. Allyssa Velarde Work Phone: Work Phone: 2022 17:17-0400 SaO2% (BldA) [Mass fraction] 100 % Dr. Allyssa Velarde Work Phone: Work Phone: 2022 17:17-0400 Systolic blood pressure 113 mm[Hg] Dr. Allyssa Velarde Work Phone: Work Phone: 2022 12:50-0400 Body height 165.[address] Allyssa Velarde Work Phone: Work Phone: 2022 12:50-0400 Body mass index (BMI) [Ratio] 24.2 kg/m2 Dr. Allyssa Velarde Work Phone: Work Phone: 2022 12:50-0400 Body weight [address] Allyssa Velarde Work Phone: Work Phone: 03-28-2022 08:05-0400 Body mass index (BMI) [Ratio] 25 kg/m2 Dr. Allyssa Velarde Work Phone: Work Phone: 03-28-2022 08:05-0400 Body weight 68.[address] Allyssa Velarde Work Phone: Work Phone: 03-28-2022 08:05-0400 Diastolic blood pressure 80 mm[Hg] Dr. Allyssa Velarde Work Phone: Work Phone: 03-28-2022 08:05-0400 Respiratory rate 16 /min Dr. Allyssa Velarde Work Phone: Work Phone: 03-28-2022 08:05-0400 Systolic blood pressure 116 mm[Hg] Dr. Allyssa Velarde Work Phone: Work Phone: 03-24-2022 08:33-0400 Respiratory rate 16 /min Dr. Allyssa Velarde Work Phone: Work Phone: 03-24-2022 06:34-0400 Diastolic blood pressure 79 mm[Hg] Dr. Allyssa Velarde Work Phone: Work Phone: 03-24-2022 06:34-0400 Heart rate 83 /min Dr. Allyssa Velarde Work Phone: Work Phone: 03-24-2022 06:34-0400 SaO2% (BldA) [Mass fraction] 99 % Dr. Allyssa Velarde Work Phone: Work Phone: 03-24-2022 06:34-0400 Systolic blood pressure 114 mm[Hg] Dr. Allyssa Velarde Work Phone: Work Phone: 03-24-2022 04:52-0400 Body height 165.[address] Allyssa Velarde Work Phone: Work Phone: 03-24-2022 04:52-0400 Body mass index (BMI) [Ratio] 25.8 kg/m2 Dr. Allyssa Velarde Work Phone: Work Phone: 03-24-2022 04:52-0400 Body temperature 99.1 [degF] Dr. Allyssa Velarde Work Phone: Work Phone: 03-24-2022 04:52-0400 Body weight 70.[address] Allyssa Velarde Work Phone: Work Phone: 03-04-2022 08:01-0400 Body height 165.[address] Allyssa Velarde Work Phone: Work Phone: 03-04-2022 08:01-0400 Body mass index (BMI) [Ratio] 23.9 kg/m2 Dr. Allyssa Velarde Work Phone: Work Phone: 03-04-2022 08:01-0400 Body weight 65.[address] Allyssa Velarde Work Phone: Work Phone: 03-04-2022 08:01-0400 Diastolic blood pressure 84 mm[Hg] Dr. Allyssa Velarde Work Phone: Work Phone: 03-04-2022 08:01-0400 Systolic blood pressure 132 mm[Hg] Dr. Allyssa Velarde Work Phone: Work Phone: Encounters Encounter Date Encounter Type Care Provider Facility Start: 06-08-2025 End: 06-08-2025 Patient encounter procedure Corina Daniel [facility] -[facility] Work Phone: Start: 06-08-2025 End: 06-08-2025 ambulatory Allyssa Velarde Facility:[facility] Start: 04-24-2025 ambulatory Allyssa Velarde Facil ity:[facility] Start: 04-23-2025 Non-patient / Non-visit Dr. Crissy Rodas MD -[facility] Start: 04-22-2025 Non-patient / Non-visit Tere Osuna [facility] Start: 04-22-2025 ambulatory Tere Osuna Facilit y:[facility] Start: 04-22-2025 End: 04-23-2025 Evaluation and management of inpatient Tere Osuna [facility] Work Phone: Start: 04-17-2025 End: 04-17-[address] Crissy Rodas MD -[facility] Work Phone: Start: 04-17-2025 End: 04-17-[address] Allyssa Velarde DO Work Phone: -[facility] Start: 04-13-2025 End: 04-13-[address] Farrah Manning DO -[facility] Work Phone: Start: 04-13-2025 End: 04-13-[address] Allyssa Velarde DO Work Phone: -[facility] Start: 04-03-2025 End: 04-03-2025 Patient encounter procedure Corina Daniel CNM -[facility] Work Phone: Start: 04-03-2025 End: 04-03-[address] Allyssa Velarde DO Work Phone: -[facility] Start: 03-30-2025 End: 03-30-[address] Allyssa Velarde DO Work Phone: -Laboratory Specimen Start: 03-30-2025 End: 03-30-2025 Patient encounter procedure Corina Daniel CNM -Laboratory Specimen Work Phone: Start: 03-30-2025 End: 03-30-2025 Patient encounter procedure Corina Daniel CNM -[facility] Work Phone: Start: 03-30-2025 End: 03-30-[address] Allyssa Velarde DO Work Phone: -[facility] Start: 03-30-2025 End: 03-30-2025 ambulatory Allyssa Velarde Facility: Start: 03-28-2025 ambulatory Allyssa High ity:[facility] Start: 03-26-2025 End: 03-26-2025 [facility] Work Phone: Start: 03-26-2025 End: 03-26-[address] Allyssa Velarde DO Work Phone: -[facility] Start: 03-20-2025 End: 03-20-2025 Patient encounter procedure Ida Ye NP-[facility] -[facility] Work Phone: Start: 03-20-2025 End: 03-20-[address] Allyssa Velarde DO Work Phone: -[facility] Start: 03-20-2025 End: 03-20-2025 ambulatory Ida Ye [facility] Facility: Start: 03-08-2025 End: 03-08-[address] Farrah Manning DO -[facility] Work Phone: Start: 03-08-2025 End: 03-08-[address] Allyssa Velarde DO Work Phone: -[facility] Start: 02-24-2025 End: 02-24-[address] Crissy Rodas MD -[facility] Work Phone: Start: 02-24-2025 End: 02-24-[address] Allyssa Velarde DO Work Phone: [facility] Work Phone: Start: 02-06-2025 End: 02-06-2025 Patient encounter procedure Corina Daniel CNM -[facility] Work Phone: Start: 02-06-2025 End: 02-06-[address] Allyssa Velarde DO Work Phone: [facility] Work Phone: Start: 01-23-2025 End: 01-23-2025 Patient encounter procedure Corina Daniel CNM -[facility] Work Phone: Start: 01-23-2025 End: 01-23-[address] Allyssa Velarde DO Work Phone: [facility] Work Phone: Start: 01-23-2025 End: 01-23-2025 ambulatory Farrah Aquinokrys Facility: Start: 12-28-2024 End: 12-28-2024 Patient encounter procedure Ida Ye SHEELA-C -[facility] Work Phone: Start: 12-28-2024 End: 12-28-2024 ambulatory Allyssa Velarde Facility:[facility] Start: 12-28-2024 End: 12-28-2024 ambulatory Farrah Richardson Lauro Facility: Start: 12-26-2024 End: 12-26-2024 ambulatory ALLYSSA VELARDE [facility] Start: 12-02-2024 End: 12-02-2024 Patient encounter procedure Ida Ahumadaester COKER-C -[facility] Work Phone: Start: 12-02-2024 End: 12-02-2024 ambulatory Allyssa Velarde Facility:[facility] Start: 11-28-2024 End: 11-28-2024 ambulatory FARRAH Stephen [facility] Start: 11-19-2024 End: 11-19-2024 Follow-up encounter Wenceslao Short APRN.DENTAL HYGIENE ADMINISTRATIVE ASSISTANT Work Phone: [facility] Comment on above: Results Start: 11-19-2024 End: 11-19-2024 Telephone encounter Wenceslao Short APRN.CNP Work Phone: [facility] Start: 11-18-2024 End: 11-19-2024 Emergency department patient visit Dr. Allyssa Velarde DO Work Phone: -Emergency Department Work Phone: Start: 11-18-2024 End: 11-18-2024 Patient encounter procedure Wenceslao Short APRN.DENTAL HYGIENE ADMINISTRATIVE ASSISTANT Work Phone: [facility] Comment on above: Congestion of nasal sinus (Primary Dx); Nausea and vomiting, unspecified vomiting type Start: 11-18-2024 End: 11-18-2024 ambulatory ALLYSSA VELARDE Facility:[id number] Start: 11-02-2024 End: 11-02-[address] Crissy Rodas MD -[facility] Work Phone: Start: 11-02-2024 End: 11-02-2024 ambulatory Crissy Rodas Facility:[facility] Start: 10-13-2024 End: 10-13-[address] Farrah Manning DO -Laboratory Work Phone: Start: 10-13-2024 End: 10-13-2024 ambulatory Farrah Manning Facility: Start: 10-05-2024 End: 10-05-[address] Farrah Manning DO -Laboratory, Specimen Work Phone: Start: 10-05-2024 End: 10-05-[address] Farrah Manning DO -[facility] Work Phone: Start: 10-05-2024 End: 10-05-2024 ambulatory Farrah Manning Facility:[facility] Start: 10-05-2024 End: 10-05-2024 ambulatory Farrah Manning Facility: Start: 09-26-2023 Non-patient / Non-visit Dr. Allyssa Velarde Work Phone: [facility] Start: 09-25-2023 Non-patient / Non-visit Dr. Allyssa Velarde Work Phone: [facility] Start: 09-24-2023 Non-patient / Non-visit Dr. Allyssa Velarde Work Phone: [facility] Start: 09-24-2023 End: 09-26-2023 Evaluation and management of inpatient Dr. Allyssa Velarde Work Phone: [facility] Work Phone: Start: 09-23-2023 End: 09-23-[address] Allyssa Velarde Work Phone: [facility] Work Phone: Start: 09-18-2023 End: 09-18-[address] Allyssa Velarde Work Phone: [facility] Work Phone: Start: 09-10-2023 End: 09-10-[address] Allyssa Velarde Work Phone: [facility] Work Phone: Start: 09-10-2023 End: 09-10-[address] Allyssa Velarde Work Phone: [facility] Work Phone: Start: 09-02-2023 End: 09-02-[address] Allyssa Velarde Work Phone: Work Phone: Start: 09-02-2023 End: 09-02-[address] Allyssa Velarde Work Phone: -Laboratory, Specimen Work Phone: Start: 09-02-2023 End: 09-02-[address] Allyssa Velarde Work Phone: [facility] Work Phone: Start: 08-26-2023 End: 08-26-[address] Allyssa Velarde Work Phone: [facility] Work Phone: Start: 08-10-2023 End: 08-10-[address] Allyssa Velarde Work Phone: [facility] Work Phone: Start: 07-23-2023 End: 07-23-[address] Allyssa Velarde Work Phone: [facility] Work Phone: Start: 07-20-2023 End: 07-20-[address] Allyssa Velarde Work Phone: [facility] Work Phone: Start: 07-20-2023 End: 07-20-[address] Allyssa Velarde Work Phone: Work Phone: Start: 07-20-2023 End: 07-20-[address] [facility]: Start: 07-08-2023 End: 07-08-[address] Allyssa Velarde Work Phone: [facility] Work Phone: Start: 07-04-2023 End: 07-04-[address] Allyssa Velarde Work Phone: Work Phone: Start: 07-04-2023 End: 07-04-[address] Allyss[facility] Velarde [facility]: Start: 07-01-2023 End: 07-01-[address] Allyssa Velarde Work Phone: [facility] Work Phone: Start: 06-10-2023 End: 06-10-[address] Allyssa Velarde Work Phone: -Laboratory, Specimen Work Phone: Start: 06-10-2023 End: 06-10-[address] Allyssa Velarde Work Phone: [facility] Work Phone: Start: 06-10-2023 End: 06-10-[address] Al[facility] Velarde [facility] Work Phone: Start: 05-13-2023 End: 05-13-[address] Allyssa Velarde Work Phone: Work Phone: Start: 05-13-2023 End: 05-13-[address] Allyssa Velarde Work Phone: [facility] Work Phone: Start: 05-13-2023 End: 05-13-[address] Allyssa Velarde [facility]: [facility] Work Phone: Start: 04-14-2023 End: 04-14-[address] Allyssa Velarde Work Phone: [facility] Work Phone: Start: 04-13-2023 End: 04-13-[address] Allyssa Velarde Work [facility]: [facility] Work Phone: Start: 03-16-2023 End: 03-16-[address] Allyssa Velarde Work Phone: [facility] Work Phone: Start: 03-16-2023 End: 03-16-[address] Allyssa Velarde Work Phone: [facility] Work Phone: Start: 03-12-2023 End: 03-12-[address] Allyssa Velarde Work Phone: Work Phone: Start: 03-12-2023 End: 03-12-[address] Allyss[facility] Velarde [facility] Start: 02-23-2023 End: 02-23-[address] Allyssa Velarde Work Phone: [facility] Start: 02-19-2023 End: 02-19-[address] Allyssa Velarde Work Phone: Work Phone: Start: 02-19-2023 End: 02-19-[address] Allyssa Velarde Work Phone: [facility] Start: 02-19-2023 End: 02-19-[address] Allyssa Velarde Work Phone: [facility] Start: 01-22-2023 End: 01-22-[address] Allyssa Velarde [facility] Start: 01-20-2023 End: 01-20-[address] Allyssa Velarde [facility] Start: 11-27-2022 End: 11-27-[address] Allyssa Velarde Work Phone: [facility] Start: 11-19-2022 End: 11-19-[address] Allyssa Velarde Work Phone: Work Phone: Start: 11-19-2022 End: 11-19-[address] Allyssa Velarde Work Phone: -Laboratory, [facility] Start: 11-17-2022 End: 11-17-[address] Allyssa Velarde Work Phone: Work Phone: Start: 11-17-2022 End: 11-17-[address] Allyssa Velarde [facility] Start: 09-30-2022 End: 09-30-[address] Allyssa Velarde Work Phone: [facility] Start: 09-25-2022 End: 09-25-[address] Allyssa Velarde Work Phone: [facility] Start: 2022 Non-patient / Non-visit Dr. Allyssa Velarde Work Phone: [facility] Start: 2022 End: 2022 Admission to same day surgery center Dr[facility] Allyssa Velarde [facility] Start: 03-28-2022 End: 03-28-[address] Allyssa Velarde Work Phone: [facility] Start: 03-24-2022 End: 03-24-2022 Emergency department patient visit Dr. Allyssa Velarde Work Phone: -Emergency Department Start: 03-05-2022 End: 03-05-[address] Allyssa Velarde Work Phone: [facility] Start: 03-04-2022 End: 03-04-[address] Allyssa Velarde Work Phone: -[facility] Start: 03-04-2022 End: 03-04-[address] Allyssa Velarde Work Phone: [facility] Start: 06-03-2018 Patient encounter HEALTH DRJanetEMPLOYEE [facility] Start: 10-08-2017 End: 10-08-2017 Patient encounter HEALTH DRJanetEMPLOYEE [facility] Procedures Date Procedure Procedure Detail Performing Clinician Start: 04-22-2025 Serologic test for syphilis Dr. Allyssa Velarde DO Work Phone: Start: 03-30-2025 Beta-hemolytic Strep tococcus culture Dr. [...] RSV Vaccine (1 - 1-dose 75+ series) [facility] Start: 08-26-2033 Urine microalbumin profile DTaP,Tdap,Td Vaccine (8 - Td or Tdap) [facility] Start: 04-23-2025 Patient discharge Start: 04-22-2025 Administration of medication Start: 04-22-2025 Application of ice collar, cap or bag Start: 04-22-2025 Catheterization of vein [facility] Start: 04-22-2025 Introduction of urinary catheter Start: 04-22-2025 Measuring intake and output Start: 04-22-[address] [facility] Start: 04-22-2025 Procedure discontinued Start: 04-22-2025 Provision of activity privileges Start: 04-22-2025 Vital signs measurements [facility] Start: 04-22-2025 End: 04-22-2025 Start: 04-22-2025 Documentation procedure [facility] Start: 04-22-2025 Admission procedure Start: 03-20-2025 CBC W Auto Differential panel - Blood Start: 01-23-2025 CBC W Auto Differential panel - Blood Start: 01-23-2025 Measurement of glucose 2 hours after glucose challenge for glucose tolerance test Start: 01-23-2025 Serologic test for syphilis Start: 01-23-2025 Start: 11-18-2024 Start: 11-18-2024 Start: 11-18-2024 Bacteria identified in Urine by Culture Urine Culture Start: 05-08-2024 Covid-19 Vaccine () Covid-19 Vaccine () [facility] Start: 09-26-2023 Patient discharge Start: 09-25-2023 Administration of medication Start: 09-25-2023 Application of ice collar, cap or bag Start: 09-25-2023 Catheterization of vein [facility] Start: 09-25-2023 Introduction of urinary catheter Start: 09-25-2023 Measuring intake and output Start: 09-25-[address] [facility] Start: 09-25-2023 Procedure discontinued Start: 09-25-2023 Provision of activity privileges Start: 09-25-2023 Vital signs measurements [facility] Start: 09-25-2023 Start: 09-24-2023 Start: 09-24-[address] [facility] Start: 09-24-2023 Start: 09-24-2023 Admission procedure Start: 2022 Patient discharge Work Phone: Start: 03-24-2022 Work Phone: Start: 2015 Screening for malignant neoplasm of cervix Cervical Cancer Screening [facility] Start: 2012 Anxiety Screening Anxiety Screening [facility] Start: 2012 Depression Screening Depression Screening [facility] Start: 2012 Hepatitis C screening Hepatitis C Screening [facility] Start: 2012 HIV screening HIV Screening [facility] Bacteria identified in Urine by Culture Urine Culture Work Phone: CBC W Auto Different ial panel - Blood CBC W Auto Different ial panel - Blood COVID & INFLUENZA A/ B & RSV PCR, ROUTINE COVID & INFLUENZA A/B & RSV PCR, ROUTINE Microbiology Routine Nausea and vomiting, unspecified vomiting type 11/18/2024 9:29 AM EDT [facility] Work Phone: Erythrocyte mean corpuscular volume determination Erythrocyte mean corpuscular volume determination Hematocrit [Volume Fraction] of Blood Hematocrit [Volume Fraction] of Blood Hemoglobin [Mass/vol ume] in Blood Hemoglobin [Mass/vol ume] in Blood Hepatitis B surface antigen measurement Hepatitis C antibody measurement HIV 1+2 Ab+HIV1 p24 Ag [Presence] in Serum or Plasma by Immunoassay Leukocytes [#/volume ] in Blood Leukocytes [#/volume ] in Blood Mean corpuscular hemoglobin concentration determination Mean corpuscular hemoglobin concentration determination Mean corpuscular hemoglobin determination Mean corpuscular hemoglobin determination [facility] count [facility] Neutrophil percent differential count Neutrophil percent differential count Patient Education [facility] Work Phone: Patient referral [facility] Work Phone: Platelets [#/volume] in Blood Platelets [#/volume] in Blood Red blood cell count Red blood cell count Red cell distributio n width determination Red cell distributio n width determination Rubella IgG measurement [facility] Streptococcus agalac tiae [Presence] in Unspecified specimen by Organism specific culture Treponema sp Ab [Pre sence] in Serum Urine culture [facility] Work Phone: [facility] Immunizations Immunization Date Immunization Notes Care Provider [facility] 02-06-2025 tetanus toxoid, redu solis diphtheria toxoid, and acellular pertussis vaccine, adsorbed Dr. Allyssa Velarde DO Work Phone: 07-11-2024 influenza, seasonal, injectable, preservative free Dr. Allyssa Velarde DO Work Phone: 08-26-2023 tetanus toxoid, redu solis diphtheria toxoid, and acellular pertussis vaccine, adsorbed Dr. Allyssa Velarde Work Phone: 07-23-2023 influenza, injectabl e, quadrivalent, preservative free Dr. Allyssa Velarde Work Phone: 06-09-2022 influenza, injectabl e, quadrivalent, preservative free Dr. Allyssa Velarde Work Phone: 06-09-2022 influenza, seasonal, injectable Dr. Allyssa Velarde Work Phone: 07-02-2021 Covid (Moderna) Dr. Allyssa aguilar Work Phone: 06-12-2021 influenza, injectabl e, quadrivalent, preservative free Dr. Allyssa Velarde Work Phone: 06-12-2021 influenza, seasonal, injectable Dr. Allyssa Velarde Work Phone: 10-23-2020 Covid (Moderna) Dr. Allyssa aguilar Work Phone: 09-25-2020 Roshanid (Moderna) Dr. Allyssa aguilar Work Phone: 06-13-2020 influenza, injectabl e, quadrivalent, preservative free Dr. Allyssa Velarde Work Phone: 06-13-2020 influenza, seasonal, injectable Dr. Allyssa Velarde Work Phone: 07-11-2019 influenza, injectabl e, quadrivalent, preservative free Dr. Allyssa Velarde Work Phone: 07-11-2019 influenza, seasonal, injectable Dr. Allyssa Velarde Work Phone: 07-07-2018 influenza, injectabl e, quadrivalent, preservative free Dr. Allyssa Velarde Work Phone: 07-07-2018 influenza, seasonal, injectable Dr. Allyssa Velarde Work Phone: 06-04-2017 influenza, injectabl e, quadrivalent, preservative free Dr. Allyssa Velarde Work Phone: 06-04-2017 influenza, seasonal, injectable Dr. Allyssa Velarde Work Phone: 06-16-2016 influenza, injectabl e, quadrivalent, preservative free Dr. Allyssa Velarde Work Phone: 06-16-2016 influenza, seasonal, injectable Dr. Allyssa Velarde Work Phone: 03-05-[address] Allyssa Velarde Work Phone: Payers Date Payer Category Payer Unknown [id number] 2024 Self-pay [id number] 2023 [employer] Blue Shield BLUE ACCE SS PPO [id number] 2023 Unknown [id number] 1994 Unknown [id number] .[id number]. 479 1994 Unknown [id number] .1.411940.3.579.2. 479 Private Health Insurance [id number] Unknown [id number] Unknown [facility] [id number] Unknown ANTHEM [id number] Unknown [id number] .1.064223.3.579.2. 462 Unknown [id number] .1.442022.3.579.2. 462 Unknown [id number] 2.16.840.1.170362.3.579.2. 462 Unknown [id number] 2.16.840.1.253460.3.579.2. 462 Unknown [id number] 2.16.840.1.480888.3.579.2. 462 Unknown [id number] 2.16.840.1.878084.3.579.2. 462 Unknown [id number] 2.16.840.1.987507.3.579.2. 462 Unknown [id number] 2.16.840.1.128558.3.579.2. 462 Unknown [id number] 2.16.840.1.004873.3.579.2. 462 Unknown [id number] 2.16.840.1.311854.3.579.2. 462 Unknown [id number] 2.16.840.1.560557.3.579.2. 462 Unknown [id number] 2.16.840.1.044341.3.579.2. 462 Unknown [id number] 2.16.840.1.837847.3.579.2. 462 Unknown [id number] 2.16.840.1.909722.3.579.2. 462 Unknown [id number] 2.16.840.1.178635.3.579.2. 462 Unknown [id number] 2.16.840.1.520831.3.579.2. 462 Unknown [id number] 2.16.840.1.269565.3.579.2. 462 Unknown [id number] 2.16.840.1.181941.3.579.2. 462 Unknown [id number] 2.16.840.1.704156.3.579.2. 462 Unknown [id number] 2.16.840.1.275831.3.579.2. 462 Unknown [id number] 2.16.840.1.377202.3.579.2. 462 Unknown [id number] 2.16.840.1.375175.3.579.2. 462 Unknown [id number] 2.16.840.1.140025.3.579.2. 462 Unknown [id number] 2.16.840.1.913028.3.579.2. 462 Unknown [id number] 2.16.840.1.864508.3.579.2. 462 Unknown [id number] 2.16.840.1.177921.3.579.2. 462 Unknown [id number] 2.16.840.1.554137.3.579.2. 462 Social History Date Type Detail Facility Start: 03-05-2022 End: 09-24-2023 Tobacco smoking status TNIS Unknown if ever smoked Start: 1995 Sex Assigned At Female [facility] Start: 11-18-2024 End: 04-22-2025 Tobacco smoking status NHIS Never smoked tobacco [facility] Start: 11-18-2024 Tobacco use and exposure Smokeless tobacco non-user [facility] Start: 11-18-2024 Alcoholic beverage intake Ex-drinker (finding) [facility] Start: 11-18-2024 History of Social function [facility] Start: 11-18-2024 Tobacco use panel [facility] Adult Depression Screening Assessment 0 [facility] Start: 1995 Sex assigned at Not on file [facility] Start: 11-19-2024 Sex Female (finding) [facility] Goals Date Patient Goal Desired Activity /State Functional Status Date Assessment Result Facility 2022 Functional status Ambulates [facility] Work Phone: Mental Status Date Assessment Result Facility 11-18-2024 Cognitive function Level Of Cons ciousness Awake;Alert;Appropriate;Follow s Commands Work Phone: 2022 Cognitive function Voice/Name [facility] Work Phone: Clinical Notes 02-19-2023 to 06-08-2025 Note Date & Type Note Facility 06-08-2025 Progress note [facility] 06-08-2025 Progress note Note Date/Time June 08, 2025 2:21pm [facility] [address] [place] [address] OFFICE VISIT Date of Service: 06/08/25 MR#: [id number] Acct: [id number] Name: EDEL GALLOWAY Rep #: [id number] : 1995 Provider: BRAYAN Daniel Age/Sex: 30/F Location: [facility] [place] Status: Signed Intake Vital Signs 04/22/25 09:00 06/08/25 14:00 Height 5 ft 5 in 5 ft 5 in Weight: 151 lb 7 oz BMI 25.2 BP 115/76 Intake Visit Reasons: visit (obstetrics) Chief Complaint: Visit Rewinder Operator Required: No Is patient in pain?: No Allergies No Known Allergies Allergy (Verified 06/08/25 14:00) Medications ?Medication ?Instructions ?Recorded ?Confirmed ?Type multivitamin no.47-iron fum 27 1 cap PO DAILY 09/27/24 06/08/25 History mg-folate no.1 1 mg-dha 300 mg capsule (PNV-DHA) loratadine 10 mg tablet (Claritin) 10 mg PO QDAY 12/2806/08/25 History : Yes PFSH Medical History Conjunctivitis, right eye Hx of abnormal cervical Pap smear Complete Spotting Heartburn Non-smoker Cholelithiases Frequent headaches Surgical History History of laparoscopic cholecystectomy (~03/2022) Hx of wisdom tooth extraction Family History Mother Diabetes Hypertension Grandmother Heart disease Social History adopted: No household members: spouse and children number of children: 1 current occupational status: employed 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 Date Name GA/Weeks Outcome Route Bth Weight Infant Gen Labor Lgth Anesthesia Del Locatn Provider FOB 11/20/22 miscarriage @5-6 wks 09/24/23 Miroslava 40 live - full term 7#9oz Female ep idural [facility] Dr. Adrianna Acosta 04/22/25 Vadim 39 live - full term 7lb 13oz Female ep idural [facility] Tere Osuna Delivery Date: 09/24/23 Last Updated by: Macrina Schwab COVID, vanishing twin, 2nd degree laceration Delivery Date: 04/22/25 Last Updated by: Humera Gallegos see problem list for complications, IAL LC girl Depression Screen PHQ-2/9 PHQ-2 Over the last 2 weeks, how often have you been bothered by any of the following problems? 1. Little interest or pleasure in doing things: not at all 2. Feeling down, depressed, or hopeless: not at all Total score: 0 Post HPI Routine Follow-Up: Details: EDEL GALLOWAY is a 30 year old who presents for her post visit. Feeding: Breast Menses resumed: No [place] since delivery: Yes Emotional Support: Yes Last Pap:: 02/19/23 Control Method: requesting Mirena IUD ROS Const All systems reviewed & are unremarkable except as noted in H Reports system reviewed and no additional complaints, except as documented Card Reports system reviewed and no additional complaints, except as documented GI Reports system reviewed and no additional complaints, except as documented Neuro Yes system reviewed and no additional complaints, except as documented Psych Reports system reviewed and no additional complaints, except as documented, Denies anhedonia, Denies depression, Denies homicidal ideation and Denies suicidal ideation Exam Const General: cooperative, healthy appearing and comfortable Nutritional Appearance: average body habitus Orientation: alert, awake and oriented x3 Neck Neck: normal visual inspection and full ROM Resp Effort & Inspection: normal respiratory effort, able to speak in complete sentences and symmetric chest movement GI Inspection: normal to inspection Palpation: soft External Female Exam: normal external appearance and normal appearance of the urethra Urethra: normal appearance of the urethra Speculum Exam - Vagina: normal appearance of the vagina and normal vaginal discharge Bimanual Exam- Vagina & Uterus: normal bimanual exam, normal palpation and uterine size normal Bimanual Exam- Adnexa, other: normal adnexae and normal Pelvic Support: normal Neuro General: patient alert, patient awake, patient oriented x3 and moves all extremities Psych Appearance: grossly normal and well kempt Mental Status: mental status grossly normal Affect: normal affect Speech and Movement: speech and movement normal Attitude: cooperative Thought Process: normal Thought Content: normal Judgment: judgment good Coding Level of Care Code No Charge Diagnoses Routine Follow-Up Z39.2 Assessment and Plan Assessment and Plan (1) Routine Follow-Up: Plan Details Additional Comments: Cervical cancer screenin Contraceptive plans: IUD-Mirena Complications: none Follow up for annual exams or sooner if indicated. Goals & Barriers: Goals Decrease pain Improve ROM Decrease inflammation Barriers Poor posture at work/baby 06/08/25 1421 <Electronically signed by Corina norman CNM> Date _ Corina Daniel CNM Cosigner Signature: Date (if applicable) CC: ~ [facility] Work Phone: 1(495) 364-186008-16-[address] [facility] Records Department [address] [place] [id number] OB Vaginal Delivery 04/22/25 1450 MR#: [id number] Acct: [id number] Name: EDEL GALLOWAY Rep #:[id number] : 1995 30 From: Tere Osuna CNM PCP: Dr. Allyssa Velarde DO Status: ADM IN Location: SF533-5 Assessment & Plan (1) (spontaneous vaginal delivery): COMMENT: IAL Lc girl Maternal Data Information JOE Calculator Estimated Delivery Date Method Current WG Current Estimate 04/24/25 LMP (Certain) 39w 5d Other Estimates 04/25/25 Ultrasound #1 39w 4d Gestational age: 39.5 Vaginal Delivery Maternal Presentation Maternal Presentation: Active Labor Maternal Presentation: at 39.5 presenting in active labor, epiduralized and progressed to fully dilated, SROM clear fluid during vaginal exam. Vaginal Delivery Information Procedure Performed: Spontaneous Vaginal Delivery Pre-Procedure Diagnosis: see problem list Post-Procedure Diagnosis: Type of anesthesia: Epidural Estimated Blood Loss: 250 Time of Delivery: 14:19 Findings Description of procedure: Patient began pushing and delivered the head in the SANTOS presentation. The head was delivered atraumatically . The anterior and posterior shoulders delivered without complication followed by the rest of the and the infant was placed on the maternal abdomen. Delayed cord clamping was employed for approximately 60 seconds. Cord was clamped and cut and gentle traction was applied to the cord and the placenta delivered spontaneously immediately following it was noted to be intact with three-vessel cord. The perineum and vagina were inspected and noted to have a second degree and left labialtear repaired with 3-0 vicryl. EBL was 250cc. Patient and infant tolerated deliverywell. Presentation: Vertex Amniotic Membrane Rupture Type: Spontaneous Amniotic Fluid Description: Clear Placental Delivery Description: Spontaneous Placenta Disposition: [facility] Cord Vessel Description: 3 Vessels Cord Entanglement: None Infant A Gender: Female Post Vaginal Deli Medications given after delivery: IV Pitocin Laceration: 2nd degree Procedures Urinary/Genital 52xxx-59xxx: [id number] Vaginal Delivery global pkg 04/22/25 1453 Cosigner Signature (if applicable): CC: BRAYAN Osuna; Dr. Allyssa Velarde, DO~ Signed 08-16-2025 History and physical note Author Tere Osuna Note Date/Time April 22, 2025 10 :54am [facility] Medical Records Department [address] [place] [address] H&P Exam - WILDLIFE CONSERVATION PROFESSOR 04/22/25 1042 MR#: [id number] Acct: [id number] Name: EDEL GALLOWAY Rep #:[id number] : 1995 30 From: Tere Osuna CNM PCP: Dr. Allyssa Velarde, DO Status: ADM IN Location: XE000-3 HPI - General General Date of Admission: 04/22/25 Chief Complaint: contractions HPI Narrative EDEL GALLOWAY, is a 30 F who presents at 39.5 with contractions starting overnight that progressively intensified and became closer together. denies lof/vb. has good fm. Maternal Data Information JOE Calculator Estimated Delivery Date Method Current WG Current Estimate 04/24/25 LMP (Certain) 39w 5d Other Estimates 04/25/25 Ultrasound #1 39w 4d PFSH PFSH Medical History Conjunctivitis, right eye Hx of abnormal cervical Pap smear Complete Spotting Heartburn Non-smoker Cholelithiases Frequent headaches Home Medications ?Medication ?Instructions ?Recorded ?Last Taken ?Type multivitamin no.47-iron fum 27 1 cap PO DAILY 09/27/24 04/21/25 08:00 History mg-folate no.1 1 mg-dha 300 mg 1 cap capsule (PNV-DHA) loratadine 10 mg tablet (Claritin) 10 mg PO QDAY 12/28 Unknown History Allergy/AdvReac Type Severity Reaction Status Date / Time No Known Allergies Allergy Verified 04/22/25 09:04 Family History Mother Diabetes Hypertension Grandmother Heart disease Surgical History History of laparoscopic cholecystectomy (~03/2022) Hx of wisdom tooth extraction Social History adopted: No household members: spouse and children number of children: 1 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 Date Name GA/Weeks Outcome Route Bth Weight [facility] 11/20/22 miscarriage @5-6 wks 09/24/23 Delainey 40 live - full term 7#9oz Female ep idural [facility] Dr. Adrianna Acosta Delivery Date: 09/24/23 Last Updated by: Macrina TEJADA, vanishing twin, 2nd degree laceration Visit Details Expected Delivery Route/Plan Labor Preferences- CB/BF classes: no labor support person: Dave labor intervention preferences: [] pain management options preferred: epidural cut cord/dad catch: YES : yes PP control planned: discussed possible routes of delivery and associated risks: [] special requests: [] Plans Covid status: [] Flu vaccine: [] Tdap [...] 160 lb 2 oz 118/70 Nega tive -?-?-?-?-?-?-?--?-?-?-?-?- Negative 146 -?-?-?-?-?-?-?-?-?-?-?-?- -No VB. Luis cano. [...] dec fm. no complaints other than some "air hunger of " 03/20/25 -?-?-?-?-?-?-?-?-?-?-?-?- 35w 0d 162 lb 2 [...] by 40-41 weeks, membrane sweep next week. NST FHR Rate Baby A Baseline: 120 Variability:: Moderate Accelerations:: 15 x 15 Decelerations:: Early NST Reactive:: Yes FHR Category:: Category I Uterine Activity:: [id number] Vital Signs Vital Signs Vital Signs: 04/22/25 09:00 04/22/25 09:00 04/22/25 09:00 Temperature Temperature Source Pulse Rate 70 73 Respiratory Rate Blood Pressure 110/71 BP Systolic 110 BP Diastolic 71 Pulse Ox 04/22/25 09:00 04/22/25 09:00 04/22/25 09:00 Temperature Temperature Source Temporal Pulse Rate Respiratory Rate 16 Blood Pressure BP Systolic BP Diastolic Pulse Ox 98 04/22/25 09:00 Temperature 97.2 F L Temperature Source Pulse Rate Respiratory Rate Blood Pressure BP Systolic BP Diastolic Pulse Ox Weight Weight: 169 lb 15.622 oz Body Mass Index (BMI) 28.3 Labs Labs Labs: Blood Type O POSITIVE Antibody Screen NEGATIVE Hct 29.7 % (37-47) L Hgb 10.1 g/dL (12.0-15.0) L Syphilis Total Ab Nonreactive (Nonreactive) Rubella IgG Antibody Reactive (Nonreactive) Hep Bs Antigen Non-Reactive (Nonreactive) Hepatitis C Antibody Non-Reactive (Nonreactive) Chlamydia DNA (ASIF) Negative (Negative) N.gonorrhoeae DNA (ASIF) Negative (Negative) HIV 1&2 Antibody Nonreactive (Nonreactive) Glucose 1 Hr 50 gm 121 mg/dL (70-140) Gest Glucose Tolerance MG/DL Assessment & Plan (1) Anemia affecting : QUALIFIERS: Trimester: third trimester Qualified Code(s): O99.013 - Anemia complicating , third trimester COMMENT: Was not taking PNV w/FE and started. cbc in 4 weeks: persists and FE added (2) UTI in : QUALIFIERS: Trimester: second trimester Qualified Code(s): O23.42 - Unspecified infection of urinary tract in , second trimester COMMENT: Dx [facility] urgent care. Needs rpt culture next visit/negative (3) Supervision of high-risk : QUALIFIERS: Trimester: third trimester Qualified Code(s): O09.93 - Supervision of high risk , unspecified, third trimester COMMENT: PRR, , JOE 04/24/25, girl PC Miroslava, Dave (4) : QUALIFIERS: Weeks of gestation: 39 weeks Qualified Code(s): Z3A.39 - 39 weeks gestation of COMMENT: GBS neg, declined NIPT & Carrier testing PLAN: Plan Patient presents IAL, plan expectant management for , pitocin/AROM PRN if needed. Pain management: plans epidural. GBS neg. Management of any complications: none I have reviewed the [facility] and made any clinically relevant updates. updated in exam, poc and admission. 04/22/25 1054 <Electronically signed by Tere Osuna CNM> Cosigner Signature (if applicable): CC: BRAYAN Osuna; Dr. Allyssa Velarde, DO~ Signed Work Phone: 1(633) 246-338408-16-2025 [address] [facility] Medical Records Department [address] [place] [address] H&P Exam - WILDLIFE CONSERVATION PROFESSOR 04/22/25 1042 MR#: [id number] Acct: [id number] Name: EDEL GALLOWAY CHUY Rep #:[id number] : 1995 30 From: Tere Osuna CNM PCP: Dr. Allyssa Velarde, DO Status: ADM IN Location: CO820-6 HPI - General General Date of Admission: 04/22/25 Chief Complaint: contractions HPI Narrative EDEL GALLOWAY, is a 30 F who presents at 39.5 with contractions starting overnight that progressively intensified and became closer together. denies lof/vb. has good fm. Maternal Data Information JOE Calculator Estimated Delivery Date Method Current WG Current Estimate 04/24/25 LMP (Certain) 39w 5d Other Estimates 04/25/25 Ultrasound #1 39w 4d PFSH PFSH Medical History Conjunctivitis, right eye Hx of abnormal cervical Pap smear Complete Spotting Heartburn Non-smoker Cholelithiases Frequent headaches Home Medications ?Medication ?Instructions ?Recorded ?Last Taken ?Type multivitamin no.47-iron fum 27 1 cap PO DAILY 09/27/24 04/21/25 08:00 History mg-folate no.1 1 mg-dha 300 mg 1 cap capsule (PNV-DHA) loratadine 10 mg tablet (Claritin) 10 mg PO QDAY 12/28 Unknown History Allergy/AdvReac Type Severity Reaction Status Date / Time No Known Allergies Allergy Verified 04/22/25 09:04 Family History Mother Diabetes Hypertension Grandmother Heart disease Surgical History History of laparoscopic cholecystectomy (~03/2022) Hx of wisdom tooth extraction Social History adopted: No household members: spouse and children number of children: 1 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 Adrianna Acosta Delivery Date: 09/24/23 Last Updated by: Macrina Schwab COVID, vanishing twin, 2nd degree laceration Visit Details Expected Delivery Route/Plan Labor Preferences- CB/BF classes: no labor support person: Dave labor intervention preferences: [] pain management options preferred: epidural cut cord/dad catch: YES : yes PP control planned: discussed possible routes of delivery and associated risks: [] special requests: [] Plans Covid status: [] Flu vaccine: [] Tdap [...] [facility] -?-?-?-?-?-?-?-?-?-?-?-?- 15w 2d 160 lb 2 oz 122/85 Nega tive -?-?-?-?-?-?-?-?-?-?-?-?- Negative 150 -?-?-?-?-?-?-?-?-?-?-?-?- SM- no vb crampi ng 12/02/24 -?-?-?-?-?-?-?-?-?-?-?-?- 19w 4d 160 lb 2 oz 118/70 Nega tive -?-?-?-?-?-?-?--?-?-?-?-?- Negative 146 -?-?-?-?-?-?-?-?-?-?-?-?- -No VB. Luis cano. [...] dec fm. no complaints other than some "air hunger of " 03/20/25 -?-?-?-?-?-?-?-?-?-?-?-?- 35w 0d 162 lb 2 [...] -?-?-?-?-?-?-?-?-?-?-?-?- Negative 120 37.5 -?-?-?-?-?-?-?-?-?-?-?-?- JV- patient inari trent declines pelvic exam. She does report [...] by 40-41 weeks, membrane sweep next week. NST FHR Rate Baby A Baseline: 120 Variability:: Moderate Accelerations:: 15 x 15 Decelerations:: Early NST Reactive:: Yes FHR Category:: Category I Uterine Activity:: [id number] Vital Signs Vital Signs Vital Signs: 04/22/25 09:00 04/22/25 09:00 04/22/25 09:00 Temperature Temperature Source Pulse Rate 70 73 Respiratory Rate Blood Pressure 110/71 BP Systolic 110 BP Diastolic 71 Pulse Ox 04/22/25 09:00 04/22/25 09:00 04/22/25 09:00 Temperature Temperature Source Temporal Pulse Rate Respiratory Rate 16 Blood Pressure BP Systolic BP Diastolic Pulse Ox 98 04/22/25 09:00 Temperature 97.2 F L Temperature Source Pulse Rate Respiratory Rate Blood Pressure BP Systolic BP Diastolic Pulse Ox Weight Weight: 169 lb 15.622 oz Body Mass Index (BMI) 28.3 Labs Labs Labs: Blood Type O POSITIVE Antibody Screen NEGATIVE Hct 29.7 % (37-47) L Hgb 10.1 g/dL (12.0-15.0) L Syphilis Total Ab Nonreactive (Nonreactive) Rubella IgG Antibody Reactive (Nonreactive) Hep Bs Antigen Non-Reactive (Nonreactive) Hepatitis C Antibody Non-Reactive (Nonreactive) Chlamydia DNA (ASIF) Negative (Negative) N.gonorrhoeae DNA (ASIF) Negative (Negative) HIV 1&2 Antibody Nonreactive (Nonreactive) Glucose 1 Hr 50 gm 121 mg/dL (70-140) Gest Glucose Tolerance MG/DL Assessment & Plan (1) Anemia affecting : QUALIFIERS: Trimester: third trimester Qualified Code(s): O99.013 - Anemia complicating , third trimester COMMENT: Was not taking PNV w/FE and started. cbc in 4 weeks: persists and FE added (2) UTI in : QUALIFIERS: Trimester: second trimester Qualified Code(s): O23.42 - Unspecified infection of urinary tract in , second trimester COMMENT: Dx [facility] urgent care. Needs rpt culture next visit/negative (3) Supervision of high-risk : QUALIFIERS: Trimester: third trimester Qualified Code(s): O09.93 - Supervision of high risk , unspecified, third trimester COMMENT: PRR, , JOE 04/24/25, girl JUDIE [place], Dave (4) : QUALIFIERS: Weeks of gestation: 39 weeks Qualified Code(s): Z3A.39 - 39 weeks gestation of COMMENT: GBS neg, declined NIPT & Carrier testing PLAN: Plan Patient presents IAL, plan expectant management for , pitocin/AROM PRN if needed. Pain management: plans epidural. GBS neg. Management of any complications: none I have reviewed the [facility] and made any clinically relevant updates. updated in exam, poc and admission. 04/22/25 1054 Cosigner Signature (if applicable): CC: BRAYAN Osuna; Dr. Allyssa Velarde, DO~ Signed 08-11-[address] [facility] [address], [address] [place] [address] OFFICE VISIT Date of Service: 04/17/25 MR#: [id number] Acct: [id number] Name: EDEL GALLOWAY Rep #: [id number] : 1995 Provider: Dr. 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 Adrianna Acosta Delivery Date: [...] NIPT. wants to do anatomy scan in [place]. 11/02/24 -?-?-?-?-?-?-?-?-?-?-?-?- 15w 2d 160 lb 2 [...] 23 -?-?-?-?-?-?-?-?-?-?-?-?- -work in for [facility]. UA neg for infection. Has [...] dec fm. no complaints other than some "air hunger of " 03/20/25 -?-?-?-?-?-?-?-?-?-?-?-?- 35w 0d 162 lb 2 [...] Barriers Poor posture at work/baby 04/17/25 1010 florence HIGUERA> Date _ Crissy Rodas MD [facility] Signature: Date (if applicable) CC: ~ [facility]07-28-2025 [facility] [address] [place] [address], [address] [place] [address] OFFICE VISIT Date of Service: 04/03/25 MR#: [id number] Acct: [id number] Name: EDEL GALLOWAY Rep #: [id number] : 1995 Provider: BRAYAN Daniel Age/Sex: 30/F Location: [facility] [place] Status: Signed Intake Vital Signs 02/06/25 11:11 03/30/25 14:46 04/03/25 10:21 Height 5 ft 4 in 5 ft 4 in 5 ft 4 in Weight: 165 lb 2 oz BMI 28.3 BP 116/74 Intake Visit Reasons: 37wk ob Chief Complaint: 37wk ob Rewinder Operator Required: No Is patient in pain?: No [...] 1 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 Adrianna Acosta Delivery Date: [...] NIPT. wants to do anatomy scan in [place]. 11/02/24 -?-?-?-?-?-?-?-?-?-?-?-?- 15w 2d 160 lb 2 [...] dec fm. no complaints other than some "air hunger of " 03/20/25 -?-?-?-?-?-?-?-?-?-?-?-?- 35w 0d 162 lb 2 [...] Immediate Larc, Signs and Symptoms of Preeclampsia, Orrick Education, Family Medical Leave or Disability Forms [...] Barriers Poor posture at work/baby 04/03/25 1033 s CNM> Date _ Corina Daniel CNM Cosigner Signature: Date (if applicable) CC: ~ [facility]07-24-2025 [facility] [address], [address] [place] [address] OFFICE VISIT Date of Service: 03/30/25 MR#: [id number] Acct: [id number] Name: EDEL GALLOWAY Rep #: [id number] : 1995 Provider: BRAYAN Daniel Age/Sex: 29/F Location: [facility] [place] Status: Signed Intake Vital Signs 03/26/25 08:56 [...] Reasons: 36wk ob Chief Complaint: 36wk ob Rewinder Operator Required: No Is patient in pain?: No [...] 1 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 Adrianna Acosta Delivery Date: [...] NIPT. wants to do anatomy scan in [place]. 11/02/24 -?-?-?-?-?-?-?-?-?-?-?-?- 15w 2d 160 lb 2 [...] dec fm. no complaints other than some "air hunger of " 03/20/25 -?-?-?-?-?-?-?-?-?-?-?-?- 35w 0d 162 lb 2 [...] Immediate Larc, Signs and Symptoms of Preeclampsia, Orrick Education, Family Medical Leave or Disability Forms [...] Decrease inflammation Barriers Poor posture at work/baby 07/24/25 1511 s CNM> Date _ Corina Fredy BRAYAN Cosigner Signature: Date (if applicable) CC: ~ [facility]07-24-2025 Progress note Author Corina Daniel [facility] Note Date/Time March 30, 2025 3:11 pm 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 Adrianna Acosta Delivery Date: [...] NIPT. wants to do anatomy scan in [place]. 11/02/24 -?-?-?-?-?-?-?-?-?-?-?-?- 15w 2d 160 lb 2 [...] dec fm. no complaints other than some "air hunger of " 03/20/25 -?-?-?-?-?-?-?-?-?-?-?-?- 35w 0d 162 lb 2 [...] Immediate Larc, Signs and Symptoms of Preeclampsia, Orrick Education, Family Medical Leave or Disability Forms [...] norman CNM> Date _ Corina [facility] Signature: Date (if applicable) CC: ~ [facility] Work Phone: 1(881) 635-597707-20-[address] 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 Farrah Manning, DO; Dr. Allyssa Velarde, DO ~ [facility]07-20-2025 Progress note Author Dhruv Mancia [facility] Note Date/Time March 26, 2025 9:16 am [facility] [address], [address] [place] [address] OFFICE VISIT Date of Service: 03/26/25 MR#: [id number] Acct: [id number] Name: EDEL GALLOWAY Rep #: [id number] : 1995 Provider: Ubaldo Clin ic Self Schedule Age/Sex: 29/F Location: 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 Farrah Manning DO; Dr. Allyssa Velarde DO ~ [facility] Work Phone: 1([phone]) 594-376807-02-2025 [facility] [address] [place] [address], [address] [place] [address] OFFICE VISIT Date of Service: 03/08/25 MR#: [id number] Acct: [id number] Name: EDEL GALLOWAY Rep #: [id number] : 1995 Provider: Dr. 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 Date Name GA/Weeks Outcome Route Bth Weight [facility]ant [facility] 11/20/22 miscarriage @5-6 wks 09/24/23 Delainey 40 live - full term 7#9oz Female ep idural [facility] Dr. Adrianna Acosta Delivery Date: [...] tive -?-?-?-?-?-?-?-?-?-?-?-?- Negative 146 -?-?-?-?-?-?-?-?-?-?-?-?- MH-No VB. Feelin g flutters. Repeat MFM US 12/26. 12/28/24 -?-?-?-?-?-?-?-?-?-?-?-?- 23w 2d 159 lb 2 oz 110/74 Nega tive -?-?-?-?-?-?-?-?-?-?-?-?- Negative 143 23 -?-?-?-?-?-?-?-?-?-?-?-?- -work in for [facility] freq. UA neg for infection. Has not [...] dec fm. no complaints other than some "air hunger of " ACOG First Trimester First Trimester: Discussed Second [...] 1041 e Velde DO> Date _ Farrah Dylan Velde DO Cosigner Signature: Date (if applicable) CC: ~ [facility]06-20-2025 Evaluation note* Diagnosis Onset Date Resolution Status Admit Date Anemia affecting acute February 24, 2025 11:05am History of miscarriage, currently acute February 24 11:05am Neck pain acute February 24 11:05am acute February 24 11:05am Segmental and somatic dysfunction of cervical region acute February 24, 2025 11:05am Segmental and somatic dysfunction of lumbar region acute Feb 11:05am Segmental and somatic dysfunction of sacral region acute Feb 11:05am Segmental and somatic dysfunction of thoracic region acute February 24, 2025 11:05am Supervision of high-risk acute February 24, [...] and somatic dysfunction of cervical region acute March 30, 2025 2:44pm Segmental and somatic dysfunction of lumbar region acute Mar 2:44pm Segmental and somatic dysfunction of sacral region acute Mar 2:44pm Segmental and somatic dysfunction of thoracic region acute March 30, 2025 2:44pm Supervision of high-risk acute March 30, 2025 2:44pm UTI in acute March 2:44pm Abnormal ultrasound resolved March 30, 2025 2:44pm Maxillary sinusitis deleted March 30, 2025 2:44pm Anemia affecting acute April 03, 2025 10:17am History of miscarriage, currently acute April 03 10:17am Neck pain acute April 03 10:17am acute April 03 10:17am Segmental and somatic dysfunction of cervical region acute April 03, 2025 10:17am Segmental and somatic dysfunction of lumbar region acute Mar 10:17am Segmental and somatic dysfunction of sacral region acute Mar 10:17am Segmental and somatic dysfunction of thoracic region acute April 03, 2025 10:17am Supervision of high-risk acute April 03, [...] April 13, 2025 10:02am Maxillary sinusitis deleted Augus t 2024 10:02am Anemia affecting acute April 17, 2025 9:31am History of miscarriage, currently acute April 17, 2025 9:31am Neck pain acute April 17 9:31am acute April 17 9:31am Segmental and somatic dysfunction of cervical region acute April 17 9:31am Segmental and somatic dysfunction of lumbar region acute Apr ust 2024 9:31am Segmental and somatic dysfunction of sacral region acute Apr us2024 9:31am Segmental and somatic dysfunction of thoracic region acute April 17 9:31am Supervision of high-risk acute April 17 9:31am UTI in acute April 072024 9:31am Abnormal ultrasound resolved April 17, 2025 9:31am Anemia affecting acute April 22, 2025 9:10am acute April 22 9:10am Supervision of high-risk acute April 22 9:10am (spontaneous vaginal delivery) acute April 22 9:10am UTI in acute April 072024 9:10am Routine Follow-Up noneact anne June 08, 2025 1:58pm [facility] Work Phone: 1(979) 751-179806-20-2025 [facility] [address] [place] [address], [address] [place] [address] OFFICE VISIT Date of Service: 02/24/25 MR#: [id number] Acct: [id number] Name: EDEL GALLOWAY CHUY Rep #: [id number] : 1995 Provider: Dr. 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 Adrianna Acosta Delivery Date: [...] -?-?-?-?-?-?-?-?-?-?-?-?- - no vb crampi ng 12/02/24 -?-?-?-?-?-?-?-?-?--?-?-?- 19w [...] inflammation Barriers Poor posture at work/baby 02/24/25 Kimberly henriquez MD> Date _ Crissy Burgess Signature: Date (if applicable) CC: ~ [facility]06-02-2025 [facility] [address] [place] [address], [address] [place] [address] OFFICE VISIT Date of Service: 02/06/25 MR#: [id number] Acct: [id number] Name: EDEL GALLOWAY Rep #: [id number] : 1995 Provider: BRAYAN Daniel Age/Sex: 29/F Location: [facility] [place] Status: Signed Intake Vital Signs 12/28/24 14:53 01/23/25 10:17 02/06/25 11:11 Height 5 ft 4 in 5 ft 4 in 5 ft 4 in Weight: 162 lb 4 oz BMI 27.8 BP 112/75 Intake Visit Reasons: 29 wk ob Chief Complaint: 29wk OB Rewinder Operator Required: No Is patient in pain?: No [...] 1 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 Adrianna Acosta Delivery Date: [...] NIPT. wants to do anatomy scan in [place]. 11/02/24 -?-?-?-?-?-?-?-?-?-?-?-?- 15w 2d 160 lb 2 oz 122/85 Nega tive -?-?-?-?-?-?-?-?-?-?-?--?- Negative 150 -?-?-?-?-?-?-?-?-?-?-?-?- SM- no vb crampi ng 12/02/24 -?-?-?-?-?-?-?-?-?-?-?-?- 19w 4d 160 lb 2 oz 118/70 Nega tive -?-?-?-?-?-?-?-?-?-?-?-?- Negative 146 -?-?-?-?-?-?-?-?-?-?-?-?- MH-No VB. Luis cano. Repeat MFM US 12/26. 12/28/24 -?-?-?-?-?-?--?-?-?-?-?-?- 23w 2d 159 lb 2 oz 110/74 Nega tive -?-?-?-?-?-?-?-?-?-?-?-?- Negative 143 23 -?-?-?-?-?-?-?-?-?-?-?-?- -work in for [facility] [employer]. UA neg for infection. Has not been [...] Provider: Corina Daniel CNM Performing Location: [facility] Administered by: Annita Espinosa on 02/06/25 11:20 Dose Route Admin Location Dispensed Lot Number Expiration Date [facility] Payment Processor 0.5 mL IM Left Deltoid 0.5 mL [id number] 02/03/26 04012-723-23 [employer] VIS Given Date VIS Provided [...] the past year?: No 02/06/25 1134 s CNM> Date _ [facility] Signature: Date (if applicable) CC: ~ [facility]05-19-2025 [facility] [address], [address] [place] [address] OFFICE VISIT Date of Service: 01/23/25 MR#: [id number] Acct: [id number] Name: EDEL GALLOWAY Rep #: [id number] : 1995 Provider: BRAYAN Daniel Age/Sex: 29/F Location: [facility] [place] Status: Signed Intake Vital Signs 12/02/24 09:59 12/28/24 14:53 01/23/25 10:17 Height 5 ft 4 in 5 ft 4 in 5 ft 4 in Weight: 161 lb 8 oz BMI 27.7 BP 107/75 Intake Visit Reasons: 27wk ob/glucose Chief Complaint: 27wk OB Rewinder Operator Required: No Is patient in pain?: No [...] 1 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 Adrianna Acosta Delivery Date: [...] NIPT. wants to do anatomy scan in [place]. 11/02/24 -?-?-?-?-?-?-?-?-?-?-?-?- 15w 2d 160 lb 2 oz 122/85 Nega tive -?-?-?-?-?-?-?-?-?-?-?-?- Negative 150 -?-?-?-?-?-?-?-?-?-?-?-?- SM- no vb cramarissai ng 12/02/24 -?-?-?-?-?-?-?-?-?-?-?-?- 19w 4d 160 lb 2 oz 118/70 Nega tive -?-?-?-?-?-?-?-?-?-?-?-?- Negative 146 -?-?-?-?-?-?-?-?-?-?-?-?- MH-No VB. Luis cano. Repeat MFM US 12/26. 12/28/24 -?-?-?-?-?-?-?-?-?-?-?-?- 23w 2d 159 lb 2 oz 110/74 Nega tive -?-?-?-?-?-?-?-?-?-?-?-?- Negative 143 23 -?-?-?-?-?-?-?-?-?-?-?-?- [facility] neg for [facility]. Has [...] Immediate [place], Signs and Symptoms of Preeclampsia, [place] Education, Family Medical Leave or Disability Forms [...] Poor posture at work/baby 01/23/25 1033 s BRAYAN> Date _ Corina Daniel CNM Cosigner Signature: Date (if applicable) CC: ~ [facility]04-23-2025 Evaluation note* Diagnosis Onset Date Resolution [...] and somatic dysfunction of cervical region acute [facility] 2024 9:58am Segmental and somatic dysfunction of lumbar region acute January 23, 2025 9:58am Segmental and somatic dysfunction of sacral region acute January 23, 2025 9:58am Segmental and somatic dysfunction of thoracic region acute [facility] 2024 9:58am Supervision of high-risk acute January 23, 2025 9 :58am UTI in acute January 9:58am Abnormal ultrasound acute February 06, 2025 11:09am Anemia affecting acute February 06, 2025 11:09am History of miscarriage, currently acute February 06 11:09am Neck pain acute February 06, 2025 11:09am acute February 06, 2025 11:09am Segmental and somatic dysfunction of cervical region acute [facility] 2024 11:09am Segmental and somatic dysfunction [...] dysfunction of cervical region acute J 2024 2:44pm Segmental and somatic dysfunction of [...] 2025 10:17am UTI in acute March 10:17am [facility] Work Phone: 1(307) 423-323104-23-2025 Evaluation note* Diagnosis Onset Date Resolution Status [...] and somatic dysfunction of thoracic region acute [facility] 2024 9:58am Supervision of high-risk acute January 23, 2025 9 :58am UTI in acute January 9:58am Abnormal ultrasound acute February 06, 2025 11:09am Anemia affecting acute February 06, 2025 11:09am History of miscarriage, currently acute February 06 11:09am Neck pain acute February 06, 2025 11:09am acute February 06, 2025 11:09am Segmental and somatic dysfunction of cervical region acute J 2024 11:09am Segmental and somatic dysfunction of lumbar region acute Feb 11:09am Segmental and somatic dysfunction of sacral region acute [facility] 2024 11:09am Segmental and somatic dysfunction of [...] dysfunction of cervical region acute J raine 24th, 2025 2:44pm Segmental and somatic dysfunction of lumbar [...] History of miscarriage, currently acute April 13 025 10:02am acute April 13 10:02am Supervision of high-risk acute April 13, 2025 10:02am UTI in acute April 132024 10:02am Maxillary sinusitis deleted 2024 10:02am [facility] Work Phone: 1(882) 101-264504-23-2025 Evaluation note* Diagnosis Onset Date Resolution Status [...] and somatic dysfunction of cervical region acute [facility] 2024 9:58am Segmental and somatic dysfunction of lumbar region acute January 23, 2025 9:58am Segmental and somatic dysfunction of sacral region acute January 23, 2025 9:58am Segmental and somatic dysfunction of thoracic region acute [facility] 2024 9:58am Supervision of high-risk acute January 23, 2025 9 :58am UTI in acute January 9:58am Abnormal ultrasound resolved January 23, 2025 9:58am Anemia affecting acute February 06, 2025 11:09am History of miscarriage, currently acute February 06 11:09am Neck pain acute February 06, 2025 11:09am acute February 06, 2025 11:09am Segmental and somatic dysfunction of cervical region acute [facility] 2024 11:09am Segmental and somatic dysfunction of lumbar region acute Feb 11:09am Segmental and somatic dysfunction of sacral region acute Kyle e 2024 11:09am Segmental and somatic dysfunction of thoracic region acute [facility] 2024 11:09am Supervision of high-risk acute [...] and somatic dysfunction of sacral region acute Mars y 2024 10:17am Segmental and somatic dysfunction of thoracic region acute J raine 2024 10:17am Supervision of high-risk acute April 03, [...] 17, 2025 9:31am Neck pain acute April 17 9:31am acute April 17 9:31am Segmental and somatic dysfunction of cervical region acute A ugust 2024 9:31am Segmental and somatic dysfunction of lumbar region acute Apr ust 2024 9:31am Segmental and somatic dysfunction of sacral region acute Apr ust 2024 9:31am Segmental and somatic dysfunction of thoracic region acute A ugust 2024 9:31am Supervision of high-risk acute April 17 9:31am UTI in acute April 072024 9:31am Abnormal ultrasound resolved April 17, 2025 9:31am [facility] Work Phone: 1(454) 229-179104-23-2025 Evaluation note* Diagnosis Onset Date Resolution Status Admit Date History of miscarriage, currently acute December 28 3:23pm acute December 28 3:23pm Supervision of high-risk acute December 28, 2024 3:23pm UTI in acute December 282024 3:23pm History of miscarriage, currently acute January 23 9:58am Neck pain acute January 23, 2025 9:58am acute January 23, 2025 9:58am Segmental and somatic dysfunction of cervical region acute [facility] 2024 9:58am Segmental and somatic dysfunction of lumbar region acute January 23, 2025 9:58am Segmental and somatic dysfunction of sacral region acute January 23, 2025 9:58am Segmental and somatic dysfunction of thoracic region acute [facility] 2024 9:58am Supervision of high-risk acute January 23, 2025 9 :58am UTI in acute January 9:58am Abnormal ultrasound resolved January 23, 2025 9:58am Anemia affecting acute February 06, 2025 11:09am History of miscarriage, currently acute February 06 11:09am Neck pain acute February 06, 2025 11:09am acute February 06, 2025 11:09am Segmental and somatic dysfunction of cervical region acute [facility] 2024 11:09am Segmental and somatic dysfunction of lumbar region acute Kyle e 2024 11:09am Segmental and somatic dysfunction of sacral region acute Feb 11:09am Segmental and somatic dysfunction of thoracic region acute [facility] 2024 11:09am Supervision of high-risk acute February 06, 2025 1 1:09am UTI in acute February 11:09am Abnormal ultrasound resolved February 06, 2025 11:09am Anemia affecting acute February 24, 2025 11:05am History of miscarriage, currently acute February 24 11:05am Neck pain acute February 24 11:05am acute February 24 11:05am Segmental and somatic dysfunction of cervical region acute [facility] 2024 11:05am Segmental and somatic dysfunction [...] somatic dysfunction of thoracic region acute [facility] 2024 10:17am Supervision of high-risk acute April 03, [...] 17, 2025 9:31am Neck pain acute April 17 9:31am acute April 17 9:31am Segmental and somatic dysfunction of cervical region acute A ugust 2024 9:31am Segmental and somatic dysfunction of lumbar region acute Apr ust 2024 9:31am Segmental and somatic dysfunction of sacral region acute Apr ust 2024 9:31am Segmental and somatic dysfunction of thoracic region acute A ugust 2024 9:31am Supervision of high-risk acute April 17 9:31am UTI in acute April 072024 9:31am Abnormal ultrasound resolved April 17, 2025 9:31am Anemia affecting acute April 22, 2025 9:10am acute April 22 025 9:10am Supervision of high-risk acute April 22 9:10am (spontaneous vaginal delivery) acute April 22 9:10am UTI in acute April 072024 9:10am Work Phone: 1(915) 673-437803-28-2025 Evaluation note* Diagnosis Onset Date Resolution Status Admit Date Abnormal ultrasound acute December 02, 2024 9:53am History of miscarriage, currently acute December 02 9:53am acute December 02 9:53am Supervision of [...] and somatic dysfunction of cervical region acute [facility] 2024 9:58am Segmental and somatic dysfunction of lumbar region acute January 23, 2025 9:58am Segmental and somatic dysfunction of sacral region acute January 23, 2025 9:58am Segmental and somatic dysfunction of thoracic region acute [facility] 2024 9:58am Supervision of high-risk acute January 23, 2025 9 :58am UTI in acute January 9:58am Abnormal ultrasound acute February 06, 2025 11:09am Anemia affecting acute February 06, 2025 11:09am History of miscarriage, currently acute February 06 11:09am Neck pain acute February 06, 2025 11:09am acute February 06, 2025 11:09am Segmental and somatic dysfunction of cervical region acute [facility] 2024 11:09am Segmental and somatic dysfunction [...] dysfunction of lumbar region acute Kyle e , 2025 11:05am Segmental and somatic dysfunction of sacral [...] 1 0:02am UTI in acute March 10:02am [facility] Work Phone: 1(312) 303-186503-28-2025 Evaluation note* Diagnosis Onset Date Resolution Status [...] somatic dysfunction of cervical region acute M 2024 9:58am Segmental and somatic dysfunction of lumbar region acute January 23, 2025 9:58am Segmental and somatic dysfunction of sacral region acute January 23, 2025 9:58am Segmental and somatic dysfunction of thoracic region acute M 2024 9:58am Supervision of high-risk acute January 23, 2025 9 :58am UTI in acute January 9:58am Abnormal ultrasound acute February 06, 2025 11:09am Anemia affecting acute February 06, 2025 11:09am History of miscarriage, currently acute February 06 11:09am Neck pain acute February 06, 2025 11:09am acute February 06, 2025 11:09am Segmental and somatic dysfunction of cervical region acute [facility] 2024 11:09am Segmental and somatic dysfunction of lumbar region acute Kyle e 2024 11:09am Segmental and somatic dysfunction of sacral region acute Kyle e 2024 11:09am Segmental and somatic dysfunction of thoracic region acute [facility] 2024 11:09am Supervision of high-risk acute February 06, 2025 1 1:09am UTI in acute February 11:09am Abnormal ultrasound acute February 24, 2025 11:05am Anemia affecting acute February 24, 2025 11:05am History of miscarriage, currently acute February 24 11:05am Neck pain acute February 24 11:05am acute February 24 11:05am Segmental and somatic dysfunction of cervical region acute [facility] 2024 11:05am Segmental and somatic dysfunction of lumbar region acute Kyle e 2024 11:05am Segmental and somatic dysfunction of sacral region acute Kyle e 2024 11:05am Segmental and somatic dysfunction of thoracic region acute [facility] 2024 11:05am Supervision of high-risk acute [...] History of miscarriage, currently acute March 20 25 9:33am acute March 20 9:33am Supervision of high-risk acute March 20, 2025 9:33am UTI in acute March 9:33am [facility] Work Phone: 1(715) 305-117303-28-2025 Evaluation note* Diagnosis Onset Date Resolution Status [...] Maxillary sinusitis acute March 26, 2025 8:48am [facility] Work Phone: 1([phone]) 205-544003-28-2025 Evaluation note* Diagnosis Onset Date Resolution Status [...] and somatic dysfunction of cervical region acute [facility] 2024 9:58am Segmental and somatic dysfunction of lumbar region acute January 23, 2025 9:58am Segmental and somatic dysfunction of sacral region acute January 23, 2025 9:58am Segmental and somatic dysfunction of thoracic region acute [facility] 2024 9:58am Supervision of high-risk acute January 23, 2025 9 :58am UTI in acute January 9:58am Abnormal ultrasound acute February 06, 2025 11:09am Anemia affecting acute February 06, 2025 11:09am History of miscarriage, currently acute February 06 11:09am Neck pain acute February 06, 2025 11:09am acute February 06, 2025 11:09am Segmental and somatic dysfunction of cervical region acute [facility] 2024 11:09am Segmental and somatic dysfunction of lumbar region acute Feb 11:09am Segmental and somatic dysfunction of sacral region acute Feb 11:09am Segmental and somatic dysfunction of thoracic region acute [facility] 2024 11:09am Supervision of high-risk acute [...] somatic dysfunction of cervical region acute 2024 2:44pm Segmental and somatic dysfunction of lumbar region acute Mar 2:44pm Segmental and somatic dysfunction of sacral region acute Mar 2:44pm Segmental and somatic dysfunction of thoracic region acute 2024 2:44pm Supervision of high-risk acute March 30, 2025 2:44pm UTI in acute March 2:44pm [facility] Work Phone: 1(573) 151-423403-15-2025 Miscellaneous Notes* Telephone Encounter - Seda Reyes [...] AM EDT ----- Message from Wenceslao Short APRN.DENTAL HYGIENE ADMINISTRATIVE ASSISTANT sent at 11/19/2024 9:03 AM EDT ----- Patient is positive for influenza A. She was prescribed Tamiflu by her skin care therapist. She could use drku-rvt-jvvvica medications that are appropriate during for her other symptoms. Please inform her of the positive test she is negative for COVID, influenza B and RSV. [facility] encounter Note * Telephone Encounter [...] concerns at this time. Seda Reyes LPN [facility]03-15-[facility]25 Telephone encounter Note* Telephone Encounter - Seda Reyes LPN - 11/19/2024 11:13 AM EDT ----- Message from Wenceslao Short APRN.DENTAL HYGIENE ADMINISTRATIVE ASSISTANT sent at 11/19/2024 9:03 AM EDT ----- Patient is positive for influenza A. She was prescribed Tamiflu by her skin care therapist. She could use vytr-fyg-ophcfsw medications that are appropriate during for her other symptoms. Please inform her of the positive test she is negative for COVID, influenza B and RSV. [facility]03-15-[facility] Telephone encounter Note* Telephone Encounter - Wenceslao Shrot Jr., APRN.CNP - 11/19/2024 9:03 AM EDT Patient is positive for influenza A. She was prescribed Tamiflu by her skin care therapist. She could use tdjw-bsh-idlfgww medications that are appropriate during for her other symptoms. Please inform her of the positive test she is negative for COVID, influenza B and RSV. [facility]03-15-2025 Miscellaneous Notes* Telephone Encounter - Wenceslao Short Jr., APRN.CNP - 11/19/2024 9:03 AM EDT Patient is positive for influenza A. She was prescribed Tamiflu by her skin care therapist. She could use tiub-olg-uykqnzq medications that are appropriate during for her other symptoms. Please inform her of the positive test she is negative for COVID, influenza B and RSV. [facility] [facility] Records Department [address] [place] [address] Emergency Department Summary 11/18/24 MR#: [id number] Acct: [id number] Name: EDEL GALLOWAY Rep #:[id number] : 1995 29 From: Alfonso Sylvester DO PCP: Dr. Allyssa Velarde, DO Status: REG ER Location: ED HPI History of Present Illness Chief Complaint: General Illness Narrative Narrative: Patient is a 29-year-old female G2, P1 currently 17 weeks who presents to the emergency department chief complaint of nausea vomiting not able to tolerate oral intake for the last 24 hours. Patient states that she was prescribed Zofran by her WILDLIFE CONSERVATION PROFESSOR and states that she has been taking it as much as possible however she still has been vomiting. States that her whole house issick currentlywith similar symptoms. She states that her symptoms started on Wednesday. She states that she went to urgent care and was given Unasyn today. Despite these medications she was not getting better therefore she came here forthe valuation management. Patient states that she feels that she is dehydrated. Patient denies any urinary symptoms denies abdominal pain vaginal spotting or bleeding. States that her first was uncomplicated. 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 Cloudy Urine pH 6.0 Ur Specific [place] 1.020 Urine Protein 15 H Urine Glucose [...] Primary Care Provider: Allyssa Velarde Referrals: Allyssa Velarde, [Primary Care Provider] - Activity Restrictions/Additional Instructions: I sent 2 prescriptions to your pharmacy take the antibiotic as prescribed. Follow-up and urine culture with your family physician or your WILDLIFE CONSERVATION PROFESSOR. Do not take Zofran and Reglan together as these are both antiemetics. Ensure adequate hydration. Continue Tamiflu. Return with worsening symptoms or concerns. He tested positive for influenza A. Print Language: Faroese Disposition Disposition: Home, Self Care What to do if you have Problems For any increased pain, shortness of breath, bleeding, nausea or vomiting, chestpain, or any unexpected problems, contact your Primary Care Provider. Call [facility] ([phone]) or report tothe closest Emergency Room. Call 911 if necessary. 11/18/24 5410 Cosigner Signature (if applicable): CC: Dr. Allyssa Velarde, ~ Signed 03-14-2025 Discharge summary Author Alfonso Sylvester Note Date/Time November 18, 2024 11: 41pm [facility] Records Department [address] [place] [address] Emergency Department Summary 11/18/24 MR#: [id number] Acct: [id number] Name: EDEL GALLOWAY Rep #:[id number] : 1995 29 From: Alfonso Sylvester DO [...] that she was prescribed Zofran by her WILDLIFE CONSERVATION PROFESSOR and states that she has been taking [...] bleeding. States that her first was uncomplicated. 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 Cloudy Urine pH 6.0 Ur Specific [place] 1.020 Urine Protein 15 H Urine Glucose [...] Primary Care Provider: Allyssa Velarde Referrals: Allyssa Velarde, [Primary Care Provider] - Activity Restrictions/Additional Instructions: I sent 2 prescriptions to your pharmacy take the antibiotic as prescribed. Follow-up and urine culture with your family physician or your WILDLIFE CONSERVATION PROFESSOR. Do not take Zofran and Reglan together as these are both antiemetics. Ensure adequate hydration. Continue Tamiflu. Return with worsening symptoms or concerns. He tested positive for influenza A. Print Language: Faroese Disposition Disposition: Home, Self Care What to do if you have Problems For any increased pain, shortness of breath, bleeding, nausea or vomiting, chestpain, or any unexpected problems, contact your Primary Care Provider. Call [facility] ([phone]) or report to the closest Emergency Room. Call 911 if necessary. 11/18/24 2341 <Electronically signed by Alfonso Sylvester DO> Cosigner Signature (if applicable): CC: Dr. Allyssa Velarde DO ~ Signed Work Phone: 1(760) 831-534103-14-2025 [id number] (AGENT OF COVID-19) RNA: Not detected INFLUENZA A RNA: Detected INFLUENZA B RNA: Not detected RESPIRATORY SYNCYTIAL VIRUS (RSV) RNA: Not detectedProvidence Willamette Falls Medical CenterComment on above:Performed By: #### [id number] #### [facility] CLIA [id number] [address] [place] [address] OF [id number] Instructions* Patient Instructions* Wenceslao Short Jr., APRN.CNP - 11/18/2024 8:56 AM EDT Take medications as prescribed. Follow-up with PCP or return if symptoms do not resolve visit Urgent Care. [facility]25 NoteHNO ID: [id number] Author: WENCESLAO SHORT JR, APRN.CNP Service: ? Author Type: Nurse Practitioner Type: Progress Notes Filed: 11/18/2024 09:13 Note Text: [facility] SH[facility] Galloway is a [...] She has been prescribed Zofran by her WILDLIFE CONSERVATION PROFESSOR but only has 1 tablet left. Patient states she has been exposed to influenza A from a family member. She is currently taking Tamiflu prescribed by her WILDLIFE CONSERVATION PROFESSOR. The history is provided by the patient. [...] and even though she has contacted her WILDLIFE CONSERVATION PROFESSOR for refill no prescription has been sent [...] after 4 days add a tab mid-day [facility]03-14-2025 History of Present illness Narrative* Wenceslao Short Jr., POLISH MAKER.DENTAL HYGIENE ADMINISTRATIVE ASSISTANT - 11/18/2024 8:42 AM EDT [facility] SH[facility] Galloway is a [...] She has been prescribed Zofran by her WILDLIFE CONSERVATION PROFESSOR but only has 1 tablet left. Patient states she has been exposed to influenza A from a family member. She is currently taking Tamiflu prescribed by her WILDLIFE CONSERVATION PROFESSOR. The history is provided by the patient. [...] and even though she has contacted her WILDLIFE CONSERVATION PROFESSOR for refill no prescriptionhas been sent in. [...] days add a tab mid-day MDM Procedures Electronically signed by Wenceslao Short Jr., POLISH MAKER.DENTAL HYGIENE ADMINISTRATIVE ASSISTANT at 11/18/2024 9:13 AM EDT documented in this encounterH[facility]02-26-2025 Evaluation note* Diagnosis Onset Date Resolution [...] somatic dysfunction of thoracic region acute [facility] 2024 2:09pm Supervision of high-risk [...] and somatic dysfunction of cervical region acute [facility] 2024 9:58am Segmental and somatic dysfunction of lumbar region acute January 23, 2025 9:58am Segmental and somatic dysfunction of sacral region acute January 23, 2025 9:58am Segmental and somatic dysfunction of thoracic region acute [facility] 2024 9:58am Supervision of high-risk acute [...] dysfunction of lumbar region acute [place] 2024 11:09am Segmental and somatic dysfunction of sacral region acute [facility] e 2024 11:09am Segmental and somatic dysfunction of thoracic region acute J une 2024 11:09am Supervision of high-risk acute February 06, 2025 1 1:09am UTI in acute February 11:09am [facility] Work Phone: 1(970) 799-536202-26-2025 Evaluation note* Diagnosis Onset Date Resolution Status [...] and somatic dysfunction of cervical region acute [facility] 2024 9:58am Segmental and somatic dysfunction [...] 2025 11:05am UTI in acute February 11:05am [facility] Work Phone: 1(750) 603-228101-29-2025 Evaluation note* Diagnosis Onset Date Resolution Status Admit Date History of miscarriage, currently acute October 05, 2024 12:33pm acute October 05, 2024 12:33pm Supervision of high-risk acute October 05 12:33pm History of miscarriage, currently acute October 2:09pm Neck pain acute November 02, 2024 2:09pm acute November 02, 2024 2:09pm Segmental and somatic dysfunction of cervical region [place] 2:09pm Segmental and somatic dysfunction of lumbar region acute Feb ruary 2024 2:09pm Segmental and somatic dysfunction of sacral region acute [place] 20[place] 2:09pm Segmental and somatic dysfunction of thoracic region acute [facility] 2024 2:09pm Supervision of high-risk acute November 02, 2 025 2:09pm Work Phone: 1(377) 416-656001-29-2025 Evaluation note* Diagnosis Onset Date Resolution Status Admit Date History of miscarriage, currently acute October 05, 2024 12:33pm acute October 05, 2024 12:33pm Supervision of high-risk acute October 05 12:33pm History of miscarriage, currently acute October 2:09pm Neck pain acute November 02, 2024 2:09pm acute November 02, 2024 2:09pm Segmental and somatic dysfunction of cervical region acute [facility] 2024 2:09pm Segmental and somatic dysfunction of lumbar region acute Feb ruary 2024 2:09pm Segmental and somatic dysfunction of sacral region acute [place] 2024 2:09pm Segmental and somatic dysfunction of thoracic region acute [facility] 2024 2:09pm Supervision of high-risk [...] and somatic dysfunction of cervical region acute [facility] 2024 9:58am Segmental and somatic dysfunction of lumbar region acute January 23, 2025 9:58am Segmental and somatic dysfunction of sacral region acute January 23, 2025 9:58am Segmental and somatic dysfunction of thoracic region acute [facility] 2024 9:58am Supervision of high-risk acute January 23, 2025 9 :58am UTI in acute January 9:58am [facility] Work Phone: 1(960) 435-174601-20-2024 Progress note Author Crissy Rodas September 26, 2023 7:18am Note Date/Time September 25, 2023 8 :34am [facility] Medical Records Department [address] [place] [address] Progress Note - OBGYN 09/25/23 0834 MR#: [id number] Acct: [id number] Name: EDEL GALLOWAY Rep #:[id number] : 1995 28 From: Crissy dennison MD PCP: Dr. Allyssa Velarde, DO Status: ADM IN Location: MF568-1 Subjective Subjective Patient doing well without complaints. [...] 81.2 H, Lymph % (Auto) 10.3 L, Eagle % (Auto) 7.4, Eos % (Auto) 0.2, [...] SM IOL decels post fall 39 girl Delainey PLAN: Plan s/p 1. routine post delivery care 2. breast feeding- support given 3. rh positive 4. rubella immune [employer] Sales Rep Reflex Medical hold order details:: IF a medical hold is selected below, a suggested order for a MEDICAL HOLD will reflex upon signing the document. Next of kin: [place] law dictates a PRIORITY LIST for identifying [...] Cosigner Signature (if applicable): CC: ~ Signed Work Phone: 1(299) 984-910801-20-2024 Progress note Author Crissy Rodas September 26, 2023 7:18am Note Date/Time September 26, 2023 7 :18am [facility] Medical Records Department [address] [facility] [place] [address] Progress Note - OBGYN 09/26/23716 MR#: [id number] Acct: [id number] Name: EDEL GALLOWAY Rep #:[id number] : 1995 28 From: Crissy dennison MD PCP: Dr. Allyssa Velarde, DO Status: ADM IN Location: [place] [address]-1 Subjective Subjective Patient doing well without complaints. [...] SM IOL decels post fall 40 girl Loreny PLAN: Plan s/p 1. routine post delivery care 2. breast feeding- support given 3. rh positive 4. rubella immune 09/26/23 0718 <Electronically signed by Crissy Rodas MD> Cosigner Signature (if applicable): CC: ~ Signed Work Phone: 1(318) 601-926301-19-2024 Discharge summary Author Crissy Rodas September 24, 2023 11:54pm Note Date/Time September 24, 2023 1 0:11pm [facility] System Medical Records Department [address] [place] [address] Instructions for Home/Discharge Instructions 09/24/23 2211 MR#: [id number] Acct: [id number] Name: EDEL GALLOWAY Rep #:[id number] : 1995 28 From: Crissy dennison MD PCP: Dr. Allyssa Velarde, DO Status: ADM IN Discharge Instructions Diet [...] Up With: Crissy Rodas MD When: Call [phone] to make an appointment with your doctor [...] can be placed): Home, Self Care 09/24/23 8137<Electronically signed by Crissy Rodas MD>Crissy Rodas MD CC: Dr. Allyssa Velarde DO ~ Signed Work Phone: 1(152) 847-764801-18-2024 Procedure [facility] 09-24-2023 History and physical note Author Crissy Rodas September 24, 2023 2:09pm Note Date/Time September 24, 2023 2 :09pm [facility] System Medical Records Department [address] [place] [address] H&P Exam - WILDLIFE CONSERVATION PROFESSOR 09/24/23 1407 MR#: [id number] Acct: [id number] Name: EDEL GALLOWAY Rep #:[id number] : 1995 28 From: Crissy dennison MD PCP: Dr. 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 09/24/23 1409 <Electronically signed by Crissy Rodas MD> Cosigner Signature (if applicable): CC: Dr. Allyssa Velarde DO; Dr. Crissy Rodas MD~ Signed Work Phone: 1(825) 285-661806-15-2023 NotePap Smear Specimen AdequacyJune 2022 11:59pmComment.Satisfactory for evaluation. No endocervical component is identified.[facility] A#[id number] Community HospitalComment on above:Satisfactory for evaluation. No endocervical component is identified. 02-19-2023 NotePap Smear Specimen AdequacyJune 2022 11:59pmComment. Satisfactory for evaluation. No endocervical component is identified.[facility] A#[id number] on above:Satisfactory for evaluation. No endocervical component is identified.02-19-2023 NotePap Smear Specimen AdequacyJune 2022 11:59pmComment.Satisfactory for evaluation. No endocervical component is identified.[facility] A#[id number] on above:Satisfactory for evaluation. No endocervical component [...] and somatic dysfunction of thoracic region acute Work Phone: Evaluation note* Diagnosis Onset Date [...] dysfunction of thoracic region acute Cholelithiases acute Work Phone: Evaluation note* Diagnosis Onset Date [...] and somatic dysfunction of thoracic region acute Work Phone: Evaluation note* Diagnosis Onset Date Resolution Status Hx of one miscarriage acute acute Supervision of high-risk acute Back pain acute Segmental and somatic dysfunction of cervical region acute Segmental and somatic dysfunction of lumbar region acute Segmental and somatic dysfunction of sacral region acute Segmental and somatic dysfunction of thoracic region acute Work Phone: Evaluation note* Diagnosis Onset Date [...] (upper respiratory infection) acute Vanishing twin syndrome [facility] Work Phone: Evaluation note* Diagnosis Onset Date [...] Supervision of high-risk acute Vanishing twin syndrome [facility] Work Phone: Evaluation note* Diagnosis Onset Date [...] Supervision of high-risk acute Vanishing twin syndrome [facility] e Work Phone: Evaluation note* Diagnosis Onset Date [...] thoracic region acute Conjunctivitis, right eye ac [place] Abnormal glucose tolerance a ffecting , antepartum acute Back pain acute Cervicogenic headache acute Choroid plexus cyst of fetus acute Conjunctivitis, right eye ac [place] Hx of one miscarriage acute Need to void immediately after urinating acute acute Segmental and somatic dysfunction of cervical region acute Segmental and somatic dysfunction of lumbar region acute Segmental and somatic dysfunction of pelvic region acute Segmental and somatic dysfunction of sacral region acute Segmental and somatic dysfunction of thoracic region acute Supervision of high-risk acute Vanishing twin syndrome [facility] Work Phone: Evaluation note* Diagnosis Onset Date [...] Supervision of high-risk acute Vanishing twin syndrome [facility] roni Work Phone: Evaluation note* Diagnosis Onset Date [...] high-risk resolved Vanishing twin syndrome reso lved Work Phone: Evaluation note* Diagnosis Congestion of nasal sinus- Primary Other diseases of nasal cavity and sinuses Nausea and vomiting, unspecified vomiting type documented in this encounter [facility] Discharge instructions Additional Instructions I sent 2 prescriptions to your pharmacy take the antibiotic as prescribed. Follow-up and urine culture with your family physician or your WILDLIFE CONSERVATION PROFESSOR. Do not take Zofran and Reglan together as these are both antiemetics. Ensure adequate hydration. Continue Tamiflu. Return with worsening symptoms or concerns. He tested positive for influenza A. Work Phone: Progress note Author Corina Daniel [facility] Note Date/Time January 23, 2025 10:33 am [facility] [address], [address] [place] [address] OFFICE VISIT Date of Service: 01/23/25 MR#: [id number] Acct: [id number] Name: EDEL GALLOWAY Rep #: [id number] : 1995 Provider: BRAYAN Daniel Age/Sex: 29/F Location: [facility] [place] Status: Signed Intake Vital Signs 12/02/24 09:59 12/28/24 14:53 01/23/25 10:17 Height 5 ft 4 in 5 ft 4 in 5 ft 4 in Weight: 161 lb 8 oz BMI 27.7 BP 107/75 Intake Visit Reasons: 27wk ob/glucose Chief Complaint: 27wk OB Rewinder Operator Required: No Is patient in pain?: No [...] 1 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 Adrianna Acosta Delivery Date: 09/24/23 Last Updated by: Macrina TEJADA, vanishing twin, 2nd degree laceration HPI 27wk [...] [facility] -?-?-?-?-?-?-?-?-?-?-?-?- 15w 2d 160 lb 2 oz 122/85 Nega tive -?-?-?-?-?-?-?-?-?-?-?-?- Negative 150 -?-?-?-?-?-?-?-?-?-?-?-?- SM- no vb crampi ng 12/02/24 -?-?-?-?-?-?-?-?-?-?-?-?- 19w 4d 160 lb 2 oz 118/70 Nega tive -?-?-?-?-?-?-?-?-?-?-?-?- Negative 146 -?-?-?-?-?-?-?-?-?-?-?-?- MH-No VB. Luis cano. Repeat MFM US 12/26. 12/28/24 -?-?-?-?-?-?-?-?-?-?-?-?- 23w 2d 159 lb 2 oz 110/74 Nega tive -?-?-?-?-?-?-?-?-?-?-?-?- Negative 143 23 -?-?-?-?-?-?-?-?-?-?-?-?- MH-work in for [facility] [employer] UA neg for infection. Has not been [...] Immediate Larc, Signs and Symptoms of Preeclampsia, [place] Education, Family Medical Leave or Disability Forms [...] Cosigner Signature: Date (if applicable) CC: ~ [facility] Work Phone: Progress note Author Corina Daniel [facility] Note Date/Time February 06, 2025 11:33 am [facility] [address], [address] [place] [address] OFFICE VISIT Date of Service: 02/06/25 MR#: [id number] Acct: [id number] Name: EDEL GALLOWAY Rep #: [id number] : 1995 Provider: BRAYAN Daniel Age/Sex: 29/F Location: [facility] Status: Signed Intake Vital Signs 12/28/24 14:53 01/23/25 10:17 02/06/25 11:11 Height 5 ft 4 in 5 ft 4 in 5 ft 4 in Weight: 162 lb 4 oz BMI 27.8 BP 112/75 Intake Visit Reasons: 29 wk ob Chief Complaint: 29wk OB Rewinder Operator Required: No Is patient in pain?: No [...] 1 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 Adrianna Acosta Delivery Date: [...] NIPT. wants to do anatomy scan in [place]. 11/02/24 -?-?-?-?-?-?-?-?-?-?-?-?- 15w 2d 160 lb 2 oz 122/85 Nega tive -?-?-?-?-?-?-?-?-?-?-?--?- Negative 150 -?-?-?-?-?-?-?-?-?-?-?-?- SM- no vb crampi 12/02/24 -?-?-?-?-?-?-?-?-?-?-?-?- 19w 4d [...] Immediate Larc, Signs and Symptoms of Preeclampsia, [place] Education, Family Medical Leave or Disability Forms [...] Provider: Corina Daniel CNM Performing Location: [facility] Administered by: Annita Espinosa on 02/06/25 11:20 Dose Route Admin Location Dispensed Lot Number Expiration Date NDC Payment Processor 0.5 mL IM Left Deltoid 0.5 mL [id number] 02/03/26 22124-219-71 SANOF [employer]-PA[employer]UR VIS Given Date VIS Provided [...] Cosigner Signature: Date (if applicable) CC: ~ [facility] Work Phone: Progress note Author Crissy Rodas [facility] Note Date/Time February 24, 2025 11:4 5am [facility] [address] [place] [address], [address] [place] [address] OFFICE VISIT Date of Service: 02/24/25 MR#: [id number] Acct: [id number] Name: EDEL GALLOWAY Rep #: [id number] : 1995 Provider: Dr. 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 Adrianna Acosta Delivery Date: [...] [facility] -?-?-?-?-?-?-?-?-?-?-?-?- 15w 2d 160 lb [...] Barriers Poor posture at work/baby 02/24/25 1145 <Electronically signed by Crissy henriquez MD> Date _ Crissy Rodas MD Cosigner Signature: Date (if applicable) CC: ~ [facility] Work Phone: Progress note Author Farrah Restrepo [facility] Note Date/Time March 08, 2025 10:41 am [facility] [address] [place] [address], [address] [place] [address] OFFICE VISIT Date of Service: 03/08/25 MR#: [id number] Acct: [id number] Name: EDEL GALLOWAY CHUY Rep #: [id number] : 1995 Provider: Dr. 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 Adrianna Acosta Delivery Date: [...] [facility] -?-?-?-?-?-?-?-?-?-?-?-?- 15w 2d 160 lb 2 oz 122/85 Nega tive -?-?-?-?-?-?-?-?-?-?-?-?- Negative 150 -?-?-?-?-?-?-?-?-?-?-?-?- - no vb crampi ng 12/02/24 -?-?-?-?-?-?-?-?-?-?-?-?- 19w 4d 160 lb 2 oz 118/70 Nega tive -?-?-?-?-?-?-?-?-?-?-?-?- Negative 146 -?-?-?-?-?-?-?-?-?-?-?-?- -No VB. Luis cano. Repeat MFM 12/26. 12/28/24 -?-?-?-?-?-?-?-?-?-?-?-?- 23w 2d 159 lb [...] dec fm. no complaints other than some "air hunger of " ACOG First Trimester First Trimester: Discussed Second Trimester Second Trimester: Signs and Symptoms of Labor, Selecting a care provider, Reproductive Life Planning & Contreception and Intimate Partner Violence Third Trimester Third Trimester: Pain Management Plans, Labor support person(s), Immediate Larc, Signs and Symptoms of Preeclampsia, [place] Education, Family Medical Leave or Disability Forms [...] Cosigner Signature: Date (if applicable) CC: ~ [facility] Work Phone: Progress note Author Corina Daniel [facility] Note Date/Time April 03, 2025 10:3 3am [facility] [address] [place] [address], [address] [place] [address] OFFICE VISIT Date of Service: 04/03/25 MR#: [id number] Acct: [id number] Name: EDEL GALLOWAY Rep #: [id number] : 1995 Provider: BRAYAN Daniel Age/Sex: 30/F Location: [facility] Status: Signed Intake Vital Signs 02/06/25 11:11 03/30/25 14:46 04/03/25 10:21 Height 5 ft 4 in 5 ft 4 in 5 ft 4 in Weight: 165 lb 2 oz BMI 28.3 BP 116/74 Intake Visit Reasons: 37wk ob Chief Complaint: 37wk ob Rewinder Operator Required: No Is patient in pain?: No [...] 1 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 Adrianna Acosta Delivery Date: 09/24/23 Last Updated by: Macrina FOSTERID, vanishing twin, 2nd degree laceration HPI 37wk [...] NIPT. wants to do anatomy scan in [place]. 11/02/24 -?-?-?-?-?-?-?-?-?-?-?-?- 15w 2d 160 lb 2 oz 122/85 Nega tive -?-?-?-?-?-?-?-?-?-?-?-?- Negative 150 -?-?-?-?-?-?-?-?-?-?-?-?- SM- no vb crampi ng 12/02/24 -?-?-?-?-?-?-?-?-?-?-?-?- 19w 4d 160 lb 2 oz 118/70 Nega tive -?-?-?-?-?-?-?-?-?-?-?-?- Negative 146 -?-?-?-?-?-?-?-?-?-?-?-?- MH-No VB. Feelin g flutters. Repeat MFM US 12/26. 12/28/24 -?-?-?-?-?-?-?-?-?-?-?-?- [...] dec fm. no complaints other than some "air hunger of " 03/20/25 -?-?-?-?-?-?-?-?-?-?-?-?- 35w 0d 162 lb 2 [...] Immediate Larc, Signs and Symptoms of Preeclampsia, [place] Education, Family Medical Leave or Disability Forms [...] Cosigner Signature: Date (if applicable) CC: ~ [facility] Work Phone: Progress note Author Crissy Rodas [facility] Note Date/Time April 17, 2025 10 :10am [facility] [address], [address] [place] [address] OFFICE VISIT Date of Service: 04/17/25 MR#: [id number] Acct: [id number] Name: EDEL GALLOWAY Rep #: [id number] : 1995 Provider: Dr. 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 wants to do anatomy scan in [place]. 11/02/24 -?-?-?-?-?-?-?-?-?-?-?-?- 15w 2d 160 lb 2 oz 122/85 Nega tive -?-?-?-?-?-?-?-?-?-?-?-?- Negative 150 -?-?-?-?-?-?-?-?-?-?-?-?- SM- no vb crampi ng 12/02/24 -?-?-?-?-?-?-?-?-?-?-?-?- 19w 4d 160 lb 2 oz 118/70 Nega tive -?-?-?-?-?-?-?-?-?-?-?-?- Negative 146 -?-?-?-?-?-?-?-?-?-?-?-?- MH-No VB. Luis cano. Repeat MFM US 12/26. 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 UA neg [...] dec fm. no complaints other than some "air hunger of " 03/20/25 -?-?-?-?-?-?-?-?-?-?-?-?- 35w 0d 162 lb 2 [...] henriquez MD> Date _ Crissy Rodas MD [facility] Signature: Date (if applicable) CC: ~ [employer] [facility] Work Phone: Reason for referral (narrative)No reason for referral information availableWPeoples Hospital Work Phone: Summary Purpose Family History Relationship Condition Age at Onset Recorded Date/T rick mother Diabetes mellitus Unknown Hypertension Unknown grandmother Cardiac disease Unknown Advance Directives Advance Directive Response Recorded Date/ Time Living Will No March 24, 2022 4:55am Power of Car Seat Upholsterer No March 24 4:55am Advance Directive Response Recorded Date/ Time Living Will No March 31, 2022 8:15am Power of Car Seat Upholsterer No March 31 8:15am Advance Directive Response Recorded Date/ Time Living Will No March 16, 2023 3:58pm Power of Car Seat Upholsterer No March 16 3 3:58pm Advance Directive Response Recorded Date/ Time Living Will No April 13, 2023 2:15pm Power of Car Seat Upholsterer No April 13 2:15pm Advance Directive Response Recorded Date/ Time Living Will No April 13, 2023 1:15pm Power of Car Seat Upholsterer No April 13 1:15pm Advance Directive Response Recorded Date/ Time Living Will No September 24 12:10pm Power of Car Seat Upholsterer No September 24, 2023 12:10pm Advance Directive Response Recorded Date/ Time Living Will No November 18, 2024 8:33pm Power of Car Seat Upholsterer No November 18 8:33pm Advance Directive Response Recorded Date/ Time Living Will No November 18, 2024 8:33pm Do you have a Healthcare Power of Car Seat Upholsterer? No November 18, 2024 8:33pm Advance Directive Response Recorded Date/ Time Do you have a Healthcare Power of Car Seat Upholsterer? No April 22, 2025 9:19am Chief Complaint and Reason for Visit Chief [...] region Chief Complaint SAB EORDERS NOB LMP: 4 ADJUSTMENT Reason for Visit Hx of one miscarriag e Supervision of high-risk Back pain Segmental and somatic dysfunction of cervical region Segmental and somatic dysfunction of lumbar region Segmental and somatic dysfunction of sacral region Segmental and somatic dysfunction of thoracic region Chief Complaint SAB EORDERS NOB LMP: 413 ADJUSTMENT ADJUSTMENT 13 WK OB Reason for [...] 2024 1 2:33pm Supervision of high-risk Lico 2024 12:33pm History of miscarriage, currently pregna [...] November 02, 2024 2:09pm Supervision of high-risk Melissa wyman 2024 2:09pm Chief Complaint Admit Date New [...] 2024 1 2:33pm Supervision of high-risk Lico 2024 12:33pm History of miscarriage, currently pregna [...] November 02, 2024 2:09pm Supervision of high-risk Melissa wyman 2024 2:09pm Abnormal ultrasound December 02 9:53am [...] Chief Complaint Admit Date 15 wk OB February 26th, 2025 2:09pm N/V, COLD SX November 18, 2024 [...] January 23, 2025 9:58am Supervision of high-risk May 1 9th, 2025 9:58am UTI in January 23, 2025 9:58a [...] 03, 2025 10:1 7am Anemia affecting April 13, 10:02am History of miscarriage, currently pregna nt [...] 17, 2025 9: 31am Abnormal ultrasound April 17, 025 9:31am Chief Complaint Admit Date 23 wk ob [...] 39wk ob April 17, 2025 9: 31am VAGINAL DELIVERY April 22, 2025 9: 10am LABOR AND DELIVERY April 22, 2025 10 :42am Reason for Visit Admit Date History of [...] 03, 2025 10:1 7am Anemia affecting April 13, 2 025 10:02am History of miscarriage, currently pregna [...] 17, 2025 9: 31am Abnormal ultrasound April 17, 2 025 9:31am Anemia affecting April 22, 2025 9:10am April 22, 2025 9: 10am Supervision of high-risk Augus t 2024 9:10am (spontaneous vaginal delivery) Augus t 2024 9:10am UTI in April 22, 2025 9: 10am Chief Complaint Admit Date 31wk ob February 24, 2025 11:0 5am 33wk ob March 08, 2025 10:02 am 35wk ob March 20, 2025 9:33 am CONGESTION March 26, 2025 8:48 am 36wk ob March 30, 2025 2:44 pm 37wk ob April 03, 2025 10:1 7am 38wk ob April 13, 2025 10: 02am 39wk ob April 17, 2025 9: 31am VAGINAL DELIVERY April 22, 2025 9: 10am LABOR AND DELIVERY April 22, 2025 10 :42am VAGINAL DELIVERY April 23, 2025 10 :41am visit (obstetrics) June 1:58pm Reason for Visit Admit Date Anemia affecting February 24 11:05am History of [...] 17, 2025 9: 31am Abnormal ultrasound April 17, 2 025 9:31am Anemia affecting April 22, 2025 9:10am April 22, 2025 9: 10am Supervision of high-risk Augus t 2024 9:10am (spontaneous vaginal delivery) Augus t 2024 9:10am UTI in April 22, 2025 9: 10am Routine Follow-Up June 1:58pm Additional Source Comments INFORMATION SOURCE (unrecogn ized section and content) DATE CREATED AUTHOR 07/27/2018 [facility] DATE CREATED AUTHOR AUTHOR'S ORGANIZ ATION 05/02/2020 [facility] ([place]) DATE CREATED AUTHOR AUTHOR'S ORGANIZ ATION 11/21/2024 [facility] DATE CREATED AUTHOR AUTHOR'S ORGANIZ ATION 12/26/2024 [facility] DATE CREATED AUTHOR AUTHOR'S ORGANIZ ATION 06/09/2025 [facility] Care Teams (unrecognized sec tion and content) [...] Primary Care Provider Activ e Tere Osuna CNM Attending Provider, Referring Pr ovider Active Dr. Farrah Manning , DO Other Provider Active Team Status: Inactive Member Role Status Dates Dr. Allyssa Velarde , DO Primary Care Provider Activ e Tere Osuna , CNM Attending Provider, Referring Pr ovider Active Team [...] Provider, Refe rring Provider Active Ida Ye SALESPERSON HOSIERY, SALESPERSON HOSIERY-C Attending Provider Active Team Status: Inactive Member Role Status Dates Dr. Allyssa Velarde , DO Primary Care Provider Activ e Ida Ye SALESPERSON HOSIERY, SALESPERSON HOSIERY-C Attending Provider, Referring Provider Active Team Status: Inactive Member Role Status Dates Dr. Allyssa Velarde , DO Primary Care Provider, Refe rring Provider Active oCrina Daniel CNM Attending Provider Active Team Status: [...] Role Status Dates Dr. Allyssa Velarde , Primary Care Provider Activ e Dr. Crissy Rodas MD Admit Provid er, Attending Provider, Referring Provider, Other Provider Active Team Status: Inactive Member Role Status Dates Dr. Allyssa Velarde , DO Primary Care Provider Activ e Dr. Crissy Rodas MD Admit Provid er, Attending Provider, Referring Provider Active Credit Or Loans Officer Relationship Specialty Start Date End Date Allyssa Velarde DO [address] [place] [address] PCP - General Family Medicine 11/18/24 [employer] Lo[employer] Officer Relationship Specialty Start Date End Date Allyssa Velarde DO [address] [place] [address] PCP - [facility] Medicine 11/18/24 Credit Or Loans Officer Relationship Specialty Start Date End Date Allyssa Velarde DO [address] [place] [address] PCP - [facility] Medicine 11/18/24 Team Status: Active Member Role Status Dates Dr. Allyssa Velarde , DO Primary Care Provider Activ e Team Status: Inactive Member Role Status Dates Dr. Allyssa Velarde DO Primary Care Provider Activ e Start: October 05, 2024 End: October 05, 2024 Dr. Allyssa Velarde , DO Referring Provider Active Start: October 05, 2024 End: October 05, 2024 Dr. Farrah Manning , DO Attending Provider Activ e Start: October 05, 2024 End: October 05, 2024 Team Status: Inactive Member Role Status Dates Dr. Allyssa Velarde , DO Primary Care Provider Activ e Start: October 05, 2024 End: October 05, 2024 Dr. Farrah Manning DO Attending Provider Activ e Start: October [...] 2024 End: December 02, 2024 Ida Ye SALESPERSON HOSIERY, SALESPERSON HOSIERY-C Attending Provider Active Start: December 02, 2024 End: December 02, 2024 Team Status: Inactive Member Role Status Dates Dr. Allyssa Velarde , DO Primary Care Provider Activ e Start: December 28, 2024 End: December 28, 2024 Dr. Allyssa Velarde , DO Referring Provider Active Start: December 28, 2024 End: December 28, 2024 Ida Ye SALESPERSON HOSIERY, SALESPERSON HOSIERY-C Attending Provider Active Start: December 28, 2024 [...] 18, 2024 End: November 19, 2024 Dr. Alfnoso Sylvester , DO Emergency Provider Active Start: November 18, 2024 End: November 19, 2024 Team Status: Inactive Member Role/Relationship Status Dates Dr. Allyssa Velarde , DO Primary Care Provider Activ e Start: December 02, 2024 End: December 02, 2024 Dr. Allyssa Velarde , DO Referring Provider Active Start: December 02, 2024 End: December 02, 2024 Ida Ye SALESPERSON HOSIERY, SALESPERSON HOSIERY-C Attending Provider Active Start: December 02, 2024 End: December 02, 2024 Team Status: Inactive Member Role/Relationship Status Dates Dr. Allyssa Velarde , DO Primary Care Provider Activ e Start: December 28, 2024 End: December 28, 2024 Dr. Allyssa Velarde , DO Referring Provider Active Start: December 28, 2024 End: December 28, 2024 Ida Ye SALESPERSON HOSIERY, SALESPERSON HOSIERY-C Attending Provider Active Start: December 28, 2024 [...] End: March 08, 2025 Dr. Farrah Manning DO Attending Provider Activ e Start: March 08, 2025 End: March 08, 2025 Team Status: Inactive Member Role/Relationship Status Dates Dr. Allyssa Velarde DO Primary Care Provider Activ e Start: December 02, 2024 End: December 02, 2024 Dr. Allyssa Velarde DO Referring Provider Active Start: December 02, 2024 End: December 02, 2024 Ida Ye NP, SALESPERSON HOSIERY-C Attending Provider Active Start: December 02, 2024 End: December 02, 2024 Team Status: Inactive Member Role/Relationship Status Dates Dr. Allyssa Velarde , DO Primary Care Provider Activ e Start: December 28, 2024 End: December 28, 2024 Dr. Allyssa Velarde , DO Referring Provider Active Start: December 28, 2024 End: December 28, 2024 Ida Ye SALESPERSON HOSIERY, SALESPERSON HOSIERY-C Attending Provider Active Start: December 28, 2024 [...] February 06, 2025 Dr. Allyssa Velarde , DO Referring Provider Active Start: February 06, 2025 End: February 06, 2025 Corina Daniel CNM Attending Provider Active S tart: February 06, 2025 End: February 06, 2025 Team Status: Inactive Member Role/Relationship Status Dates Dr. Allyssa Velarde , Primary Care Provider Activ e Start: February 24, 2025 End: February 24, 2025 Dr. Allyssa Velarde , Referring Provider Active Start: February 24, 2025 End: February 24, 2025 Dr. Crissy Rdoas MD Attending Provider Active Start: February 24, [...] 2025 End: March 20, 2025 Ida Ye SALESPERSON HOSIERY, SALESPERSON HOSIERY-C Attending Provider Active Start: March 20, 2025 End: March 20, 2025 Team Status: Active Member Role/Relationship Status Dates Dr. Allyssa Velarde DO Primary Care Provider Activ e Start: March 20, 2025 Ida Ye SALESPERSON HOSIERY, SALESPERSON HOSIERY-C Attending Provider Active Start: March 20, 2025 Ida Ye SALESPERSON HOSIERY, SALESPERSON HOSIERY-C Referring Provider Active Start: March 20, 2025 Team Status: Inactive Member Role/Relationship Status Dates Dr. Allyssa Velarde DO Primary Care Provider Activ e Start: March 20, 2025 End: March 20, 2025 Ida Ye SALESPERSON HOSIERY, SALESPERSON HOSIERY-C Attending Provider Active Start: March 20, 2025 End: March 20, 2025 Ida Cassi SALESPERSON HOSIERY, SALESPERSON HOSIERY-C Referring Provider Active Start: March 20, 2025 End: March 20, 2025 Team Status: Inactive Member Role/Relationship Status Dates Dr. Allyssa Velarde DO Primary Care Provider Activ e Start: March 26, 2025 End: March 26, 2025 Dr. Allyssa Velarde , DO Referring Provider Active Start: March 26, 2025 End: March 26, 2025 [facility] Attending Provider Active Start: March 26, 2025 End: March 26, 2025 Team Status: Inactive Member Role/Relationship Status Dates Dr. Allyssa Velarde , DO Primary Care Provider Activ e Start: March 30, 2025 End: March 30, 2025 Dr. Allyssa Vlearde , DO Referring Provider Active Start: March 30, [...] 2024 End: December 28, 2024 Ida Ye SALESPERSON HOSIERY, SALESPERSON HOSIERY-C Attending Provider Active Start: December 28, 2024 [...] February 06, 2025 Dr. Allyssa Velarde , DO Referring Provider Active Start: February 06, [...] March 20, 2025 Dr. Allyssa Velarde , DO Referring Provider Active Start: March 20, 2025 End: March 20, 2025 Ida Ye SALESPERSON HOSIERY, SALESPERSON HOSIERY-C Attending Provider Active Start: March 20, 2025 End: March 20, 2025 Team Status: Inactive Member Role/Relationship Status Dates Dr. Allyssa Velarde , DO Primary Care Provider Activ e Start: March 20, 2025 End: March 20, 2025 Ida Ye SALESPERSON HOSIERY, SALESPERSON HOSIERY-C Attending Provider Active Start: March 20, 2025 End: March 20, 2025 Ida Ye SALESPERSON HOSIERY, SALESPERSON HOSIERY-C Referring Provider Active Start: March 20, 2025 End: March 20, 2025 Team Status: Inactive Member Role/Relationship Status Dates Dr. Allyssa Velarde DO Primary Care Provider Activ e Start: March 26, 2025 End: March 26, 2025 Dr. Allyssa Velarde DO Referring Provider Active Start: March 26, 2025 End: March 26, 2025 [facility] Self Schedule Attending Provider Active Start: [...] April 17, 2025 End: April 17, 2025 Team Status: Inactive Member Role/Relationship Status Dates Dr. Allyssa Velarde DO Primary Care Provider Activ e Start: April 22, 2025 End: April 23, 2025 Tere Osuna CNM Admit Provider Active Star t: April 22, 2025 End: April 23, 2025 Tere Osuna CNM Attending Provider Active Start: April 22, 2025 End: April 23, 2025 Tere Osuna CNM Referring Provider Active Start: April 22, 2025 End: April 23, 2025 Team Status: Active Member Role/Relationship Status Dates Dr. Allyssa Velarde DO Primary Care Provider Activ e Start: April 22, 2025 Tere Osuna CNM Admit Provider Active Star t: April 22, 2025 Tere Osuna CNM Attending Provider Active Start: April 22, 2025 Tere Osuna CNM Referring Provider Active Start: April 22, 2025 Tere Osuna CNM Other Provider Active Star t: April 22, 2025 Team Status: Active Member Role/Relationship Status Dates Dr. Allyssa Velarde DO Primary care physician Acti ve Team Status: Inactive Member Role/Relationship Status Dates Dr. Allyssa Velarde DO Primary care physician Acti ve Start: February 24, 2025 End: February 24, 2025 Dr. Allyssa Velarde DO Referring Provider Active Start: February 24, 2025 End: February 24, 2025 Dr. Crissy Rodas MD Attending physician Active Start: February 24, 2025 End: February 24, 2025 Team Status: Inactive Member Role/Relationship Status Dates Dr. Allyssa Velarde , DO Primary care physician Acti ve Start: March 08, 2025 End: March 08, 2025 Dr. Allyssa Velarde , Referring Provider Active Start: March 08, 2025 End: March 08, 2025 Dr. Farrah Manning , DO Attending physician Acti ve Start: March 08, 2025 End: March 08, 2025 Team Status: Inactive Member Role/Relationship Status Dates Dr. Allyssa Velarde , DO Primary care physician Acti ve Start: March 20, 2025 End: March 20, 2025 Dr. Allyssa Velarde , Referring Provider Active Start: March 20, 2025 End: March 20, 2025 Ida Ye SALESPERSON HOSIERY, SALESPERSON HOSIERY-C Attending physician Active Start: March 20, 2025 End: March 20, 2025 Team Status: Inactive Member Role/Relationship Status Dates Dr. Allyssa Velarde , DO Primary care physician Acti ve Start: March 20, 2025 End: March 20, 2025 Ida Ye SALESPERSON HOSIERY, SALESPERSON HOSIERY-C Attending physician Active Start: March 20, 2025 End: March 20, 2025 Ida Ye SALESPERSON HOSIERY, SALESPERSON HOSIERY-C Referring Provider Active Start: March 20, 2025 End: March 20, 2025 Team Status: Inactive Member Role/Relationship Status Dates Dr. Allyssa Velarde , Primary care physician Acti ve Start: March 26, 2025 End: March 26, 2025 Dr. Allyssa Velarde DO Referring Provider Active Start: March 26, 2025 End: March 26, 2025 Dhruv Mancia SALESPERSON HOSIERY, SALESPERSON HOSIERY-C Attending physician Active Start: March 26, 2025 End: March 26, 2025 Team Status: Inactive Member Role/Relationship Status Dates Dr. Allyssa Velarde , DO Primary care physician Acti ve Start: March 30, 2025 End: March 30, 2025 Dr. Allyssa Velarde DO Referring Provider Active Start: March 30, 2025 End: March 30, 2025 Corina Daniel CNM Attending physician Active Start: March 30, 2025 End: March 30, 2025 Team Status: Inactive Member Role/Relationship Status Dates Dr. Allyssa Velarde DO Primary care physician Acti ve Start: March 30, 2025 End: March 30, 2025 Corina Daniel CNM Attending physician Active Start: March 30, 2025 End: March 30, 2025 Team Status: Inactive Member Role/Relationship Status Dates Dr. Allyssa Velarde DO Primary care physician Acti ve Start: April 03, 2025 End: April 03, 2025 Dr. Allyssa Velarde DO Referring Provider Active Start: April 03, 2025 End: April 03, 2025 Corina Daniel CNM Attending physician Active Start: April 03, 2025 End: April 03, 2025 Team Status: Inactive Member Role/Relationship Status Dates Dr. Allyssa Velarde DO Primary care physician Acti ve Start: April 13, 2025 End: April 13, 2025 Dr. Allyssa Velarde DO Referring Provider Active Start: April 13, 2025 End: April 13, 2025 Dr. Farrah Manning , Attending physician Acti ve Start: April 13, 2025 End: April 13, 2025 Team Status: Inactive Member Role/Relationship Status Dates Dr. Allyssa Velarde DO Primary care physician Acti ve Start: April 17, 2025 End: April 17, 2025 Dr. Allyssa Velarde DO Referring Provider Active Start: April 17, 2025 End: April 17, 2025 Dr. Crissy Rodas MD Attending physician Active Start: April 17, 2025 End: April 17, 2025 Team Status: Inactive Member Role/Relationship Status Dates Dr. Allyssa Velarde DO Primary care physician Acti ve Start: April 22, 2025 End: April 23, 2025 Tere Osuna CNM Admitting physician Active Start: April 22, 2025 End: April 23, 2025 Tere Osuna CNM Attending physician Active Start: April 22, 2025 End: April 23, 2025 Tere Osuna CNM Referring Provider Active Start: April 22, 2025 End: April 23, 2025 Team Status: Active Member Role/Relationship Status Dates Dr. Allyssa Velarde DO Primary care physician Acti ve Start: April 22, 2025 Tere Osuna CNM Admitting physician Active Start: April 22, 2025 Tere Osuna CNM Attending physician Active Start: April 22, 2025 Tere Osuna CNM Referring Provider Active Start: April 22, 2025 Tere Osuna CNM Nurse Practitioner Active Start: April 22, 2025 Team Status: Active Member Role/Relationship Status Dates Dr. Allyssa Velarde DO Primary care physician Acti ve Start: April 23, 2025 Tere Osuna CNM Admitting physician Active Start: April 23, 2025 Tere Osuna CNM Referring Provider Active Start: April 23, 2025 Tere Osuna CNM Nurse Practitioner Active Start: April 23, 2025 Dr. Crissy Roads MD Attending physician Active Start: April 23, 2025 Team Status: Inactive Member Role/Relationship Status Dates Dr. Allyssa Velarde DO Primary care physician Acti ve Start: June 08, 2025 End: June 08, 2025 Dr. Allyssa Velarde DO Referring Provider Active Start: June 08, 2025 End: June 08, 2025 Corina Daniel CNM Attending physician Active Start: June 08, 2025 End: June 08, 2025 Source Comments (unrecognize d section and content) In the event this informatio n is protected by the Federal Confidentiality of Alcohol and Drug Abuse Patient Records regulations: The Federal rules restrict any use of the information to criminally investigate or prosecute any alcohol or drug abuse patient.[facility] the event this information is protected by the Federal Confidentiality of Alcohol and Drug Abuse Patient Records regulations: The Federal rules restrict any use of the information to criminally investigate or prosecute any alcohol or drug abuse patient.[facility] the event this information is protected by the Federal Confidentiality of Alcohol and Drug Abuse Patient Records regulations: The Federal rules restrict any use of the information to criminally investigate or prosecute any alcohol or drug abuse patient.[facility] Reason for Visit (unrecogniz ed section [...] BE BASED ON THE PRIMARY CLINICAL RECORDS. [facility] [employer] [facility]. provides no warranty or guarantee of the accuracy or completeness of information in this document.
== END 2025-06-27 16:00 | disposition home or self-care (01) ==
LOC: WPOUT 15:15 → WP 15:15
PROVIDERS: Referring Provider Advanced Practice Midwife; Visit Provider Advanced Practice Midwife
DX: Z39.1 Encounter for care and examination of lactating mother (principal)
CPT/HCPCS: 96158; 96159